=== PATIENT | male | born 1935 | race Caucasian/White ===

== ENCOUNTER 2019-12-31 12:31 | Inpatient (IN) ==
--- NOTE | 2019-12-31 13:40 | XRay Report ---
XR chest 1V portable CLINICAL HISTORY: 84 years-old Male presenting with sob. TECHNIQUE: Portable upright AP view of the chest was obtained. COMPARISON: None. FINDINGS: Left subclavian pacer with leads to the right atrium and right ventricular apex. Median sternotomy wi res and mediastinal surgical clips noted. Atherosclerosis of the aortic arch. Cardiac silhouette mild ly enlarged. Only vascular prominence with coarsened lung markings and interstitial prominence. At a density of the lung bases. Mildly low lung volumes. Trace bilateral pleural effusion suspected. No pn eumothorax. Several external overlying leads. Degenerative changes of the thoracic spine. Gallstones suspected. IMPRESSION: 1. Cardiomegaly with volume overload and congestive change. 2. Bibasilar opacities there is favored to represent developing pulmonary edema versus less likely a spiration or atelectasis. 3. Trace bilateral pleural effusions. ACT 112: Negative or not required by law. Electronically signed by: Mike Anderson M.D. 12/31/2019 1:38 PM
[2019-12-31 13:55] LABS: Basophils # (auto) 0.04 K/uL (0-0.2); Basophils % (auto) 0.6 %; Eosinophils # (auto) 0.33 K/uL (0-0.5); Eosinophils % (auto) 4.8 %; Hematocrit (blood only) 34.6 % (42-52); Hemoglobin 11.3 g/dL (14.0-18.0); Immature Granulocytes # (auto) 0.01 K/uL (0.00-0.02); Immature Granulocytes % (auto) 0.1 %; Lymphocytes # (auto) 1.37 K/uL (1.2-3.4); Lymphocytes % (auto) 20.1 %; Mean Corpuscular Hemoglobin 31.2 pg (25-34); Mean Corpuscular Hgb Conc 32.7 g/dL (32-36); Mean Corpuscular Volume 95.6 fL (80-100); Mean Platelet Volume 9.2 fL (7.4-10.4); Monocytes # (auto) 0.43 K/uL (0.11-0.59); Monocytes % (auto) 6.3 %; Neutrophils # (auto) 4.64 K/uL (1.4-6.5); Neutrophils % (auto) 68.1 %; Platelet Count 253 K/uL (130-400); RDW Coefficient of Variation 14.6 % (11.5-14.5); RDW Standard Deviation 51.1 fL (36.4-46.3); Red Blood Count 3.62 M/uL (4.7-6.1); White Blood Count 6.82 K/uL (4.8-10.8)
[2019-12-31 14:00] LABS: Albumin Level 3.5 gm/dl (3.4-5.0); BUN Creatinine Ratio 17.3 (10-20); Calcium 8.9 mg/dl (8.5-10.1); Creatinine Clr Calc Pharmacy 61.5 ml/min; Est GFR (Non-African American) 77.7; Magnesium 2.1 mg/dl (1.8-2.4); Potassium 3.7 mmol/L (3.5-5.1)
[2019-12-31 14:05] LABS: Bilirubin,Total 0.9 mg/dl (0.2-1); Globulin 3.4 gm/dl (2.5-4.0); Total Protein 6.9 gm/dl (6.4-8.2); Troponin I 0.033 ng/ml (0-0.045)
[2019-12-31 14:24] LABS: Influenza A virus by PCR Neg for Influ A (Neg); Influenza B virus by PCR Neg for Influ B (Neg)
[2019-12-31] MEDS ORDERED: FUROSEMIDE 40 MG/4 ML VIAL IV STA (14:24)
--- NOTE | 2019-12-31 15:43 | History & Physical Report ---
Date of Service December 31, 2019 Assessment & Plan (1) Dyspnea: (2) Chest pain: Pt is 84 y/o M with PMH CAD s/p CABG in 2007, HTN, HLD, bradycardia s/p pacemaker, aortic stenosis, mitral stenosis, DM II, chronic dizziness presented to ER with complaint of shortness of breath, CP with exertion x 1 week and BLE edema, orthopnea and PND x 1 week In ER afebrile, P: 84, R: 20, BP: 124/70, 96% on RA. No leukocytosis, H/H: 11.3/34 (baseline ~12), Troponin: 0.03, BNP: 3977, EKG: v-paced rhythm CXR: Cardiomegaly with volume overload and congestive change. Trace bilateral pleural effusions. Bibasilar opacities there is favored to represent developing pulmonary edema versus less likely aspiration or atelectasis. CHEST PAIN R/O ACS. DDX: demand ischemia Risk factors: HTN, hyperlipidemia, DM, CAD -Monitor Vitals -Repeat EKG in am -Will trend troponin -Echo -Continue statin, lipid panel in am -continue aspirin -Nitro prn CP and repeat EKG for CP -Cardiology consult (3) CHF (congestive heart failure): In ER given lasix 40mg IV Had multiple unmeasured voids in ER -Monitor I&O's, daily weight, low sodium diet -Echo -Lasix IV daily -BMP in am (4) Bradycardia: (5) S/P cardiac pacemaker procedure: -Pacemaker interrogation (6) CAD (coronary artery disease): S/P CABG in 2007 -CP workup as above (7) Diabetes mellitus, type II: A1c: 6.3 on 11/11/2019 -Hold metformin -Novolog sliding scale per protocol (8) HTN (hypertension): Stable, continue amlodipine, losartan (9) HLD (hyperlipidemia): -Continue atorvastatin DVT Prophylaxis -Heparin SQ DNR/DNI as per discussion with pt Follows with Dr Vineet Haney for routine care Pt was seen and care coordinated with Dr Gamino. See addendum History of Present Illness Chief Complaint: SOB Primary Care Provider: Jaelyn Haney MD Pt is 84 y/o M with PMH CAD s/p CABG in 2007, HTN, HLD, bradycardia s/p pacemaker, aortic stenosis, mitral stenosis, DM II, chronic dizziness presented to ER with complaint of shortness of breath. Patient reports shortness of breath with exertion over the past week with worsening symptoms over the past day. Reports associated anterior chest aching with shortness of breath with exertion. Patient states will stop walking and rest and symptoms resolved. Today had to stop walking 6 times at grocery store secondary to symptoms. Also complains of BLE edema x 1 week. Reports occasional cough over the past month. Having orthopnea and PND over the past couple of days. Denies history of diuretic use in past. In ER denies any chest pain. Reports was short of breath walking in ER. Chronic dizziness and denies any worsening. Ambulates with walker or cane. Denies recent falls. Chronic vision loss right eye and chronic blurry vision left eye and denies any recent vision changes. Denies fever/chills, diaphoresis, N/V/D/C, MAYER, syncope, neck pain, palpitations, sore throat, cho nicolas, otalgia, rhinorrhea, abdominal pain, paresthesias, weakness, rashes, urinary symptoms. History echo : EF: 55-59%, mild aortic stenosis, moderate aortic regurgitation, mild mitral regurgitation, mild tricuspid regurgitation, mild pulmonary regurgitation Allergies Allergy/AdvReac Type Severity Reaction Status Date / Time No Known Allergies Allergy Unverified 12/31/19 13:18 Home Medications Home Medications Medication Instructions Recorded Confirmed Type amlodipine 10 mg PO DAILY 12/31/19 12/31/19 History aspirin 81 mg PO DAILY 12/31/19 12/31/19 History atorvastatin 20 mg PO DAILY 12/31/19 12/31/19 History bimatoprost [Lumigan] 1 drp OPB HS 12/31/19 12/31/19 History brimonidine 1 drp OPL TID 12/31/19 12/31/19 History dorzolamide-timolol 1 drp OPL BID 12/31/19 12/31/19 History losartan 25 mg PO DAILY 12/31/19 12/31/19 History metformin 500 mg PO BIDM 12/31/19 12/31/19 History vitamin Q58-oznxg acid 1 felecia SUBLINGUAL DAILY 12/31/19 12/31/19 History Past Med/Surg History Medical History (Updated 12/31/19 @ 17:21 by Mabel Hill PA-C) Aortic stenosis Bradycardia CAD (coronary artery disease) Diabetes Diabetes mellitus, type II Dizziness HLD (hyperlipidemia) HTN (hypertension) Mitral regurgitation Neuropathy Surgical History (Updated 12/31/19 @ 17:21 by Mabel Hill PA-C) 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 S/P cardiac pacemaker procedure Family History (Updated 12/31/19 @ 17:16 by Mabel Hill PA-C) Mother Heart disease Father Prostate cancer Social History (Updated 12/31/19 @ 17:16 by Mabel Hill PA-C) Preferred Language: Nepali Communication Ability: Effective Adult Care Provider Required: No Beliefs That Will Affect Care: None Current Living Situation: Alone Other Information That Helps Us Care for You: No Feels Safe at Home: Yes Safety Concerns: Feels Safe At This Time Smoking Status: Former smoker Tobacco Type: pipe ; Do You Dip or Chew Tobacco: No ; Second Hand Exposure: No ; Hx Alcohol Use: Yes Alcohol type: beer Alcohol Intake Frequency: Rarely Hx Substance Use: No Review of Systems Review of Systems: All systems reviewed & are unremarkable except as noted in HPI & below Physical Exam Physical Exam: General: no acute distress, WDWN Head: normocephalic, atraumatic Eyes: right eye strabismus, PERRL, EOM's intact, conjunctiva non-injected, anicteric ENT: normal inspection external ears, nose, mucous membranes moist Neck: supple, trachea midline Lungs: no respiratory distress, diminished breath sounds bases, no wheezing/rhonchi/rales CV: RRR, systolic murmur, no JVD, 2+ pretibial edema Abd: normal BS, soft, non-tender Ext: no cyanosis, no calf tenderness Neuro: A&O x 3, no focal deficits noted, normal affect Skin: warm, dry Results & Data Vital Signs (Past 12 Hours) Vital Signs Temp Pulse Resp BP Pulse Ox 12/31/19 15:32 95 12/31/19 15:11 95 H 24 154/81 H 93 12/31/19 15:10 95 H 23 93 12/31/19 15:05 91 H 18 94 12/31/19 14:51 86 92 12/31/19 14:49 88 137/77 93 03/04/20 14:40 88 12/31/19 14:30 87 12/31/19 14:20 84 21 12/31/19 14:10 83 23 12/31/19 14:00 84 12/31/19 13:50 82 21 12/31/19 13:40 84 12/31/19 13:33 95 12/31/19 13:30 88 12/31/19 13:20 81 21 12/31/19 13:10 78 23 95 12/31/19 13:00 84 23 96 12/31/19 12:58 86 19 95 12/31/19 12:48 36.5 C 84 20 124/70 96 Laboratory Results Short CBC 12/31/19 Range/Units 13:32 WBC 6.82 (4.8-10.8) K/uL Hgb 11.3 L (14.0-18.0) g/dL Hct 34.6 L (42-52) % Plt Count 253 (130-400) K/uL BMP 12/31/19 13:32 Sodium 138 Potassium 3.7 Chloride 108 H Carbon Dioxide 22 BUN 16 Creatinine 0.91 Glucose 122 H Calcium 8.9 Cardiac Enzymes 12/31/19 Range/Units 13:32 Troponin I 0.033 (0-0.045) ng/ml Liver Function 12/31/19 Range/Units 13:32 Total Bilirubin 0.9 (0.2-1) mg/dl AST 13 L (15-37) U/L ALT 15 (12-78) U/L Alkaline Phosphatase 98 (45-117) U/L Albumin 3.5 (3.4-5.0) gm/dl Diagnostic Findings CXR: 1. Cardiomegaly with volume overload and congestive change. 2. Bibasilar opacities there is favored to represent developing pulmonary edema versus less likely aspiration or atelectasis. 3. Trace bilateral pleural effusions. ECG Rate (beats per minute): 88 Findings: + paced rhythm Code Status & VTE Plan VTE Prophylaxis Plan VTE Prophylaxis will be ordered: Yes Supervising Physician Co-Signing Physician Notes Attending addendum The patient was seen and examined in the emergency room in presence of [id number] He has been complaining of chest pain off and on and shortness of breath for the last few days Also has increasing leg swelling and orthopnea Denies any significant pain during examination On examination No apparent distress at rest Hemodynamically stable with blood pressure at the upper end with systolic 162 Chest-decreased breath sounds both sides at the bases with coarse crackles Heart-S1-S2, regular, 2/6 systolic murmur over precordium Abdomen-benign, soft and nontender Extremity-negative for any edema 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, 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
--- NOTE | 2019-12-31 16:06 | Electrocardiogram Report ---
Test Reason : Blood Pressure : / mmHG Vent. Rate : 088 BPM Atrial Rate : 088 BPM P-R Int : 000 ms QRS Dur : 166 ms QT Int : 438 ms P-R-T Axes : 099 -72 097 degrees QTc Int : 529 ms Ventricular-paced rhythm Abnormal ECG No previous ECGs available Confirmed by Eric Hernandez ([id number]) on 12/31/2019 4:06:23 PM Referred By: Confirmed By:Eric Hernandez
[2019-12-31] MEDS ORDERED: GLUCOSE 40% GEL 15 GM TUBE PO PRN (16:09)
[2019-12-31] MEDS ORDERED: CARBOHYDRATES FOR HYPOGLYCEMIA PO PRN (16:09)
[2019-12-31] MEDS ORDERED: GLUCOSE 10 TABS/TUBE PO PRN (16:09)
[2019-12-31] MEDS ORDERED: ASPIRIN 81 MG CHEW PO STA (16:09)
[2019-12-31] MEDS ORDERED: ACETAMINOPHEN 325 MG TAB PO PRN (16:09)
[2019-12-31] MEDS ORDERED: DEXTROSE 50% 50 ML SYRINGE IV PRN (16:09)
[2019-12-31] MEDS ORDERED: POLYETHYLENE (MIRALAX) 17 GM PACK PO PRN (16:09)
[2019-12-31] MEDS ORDERED: GLUCAGON FOR INJ 1 MG VIAL SQ PRN (16:09)
[2019-12-31] MEDS: INSULIN ASPART 100 UNITS/ML 3 ML PEN SC SCH ×2 (17:19→21:19)
[2019-12-31] MEDS ORDERED: NITROGLYCERIN SL 0.4 MG/TAB TAB SL PRN (17:24)
[2019-12-31] MEDS: DORZOLAMIDE/TIMOLOL 22.3/6.8MG/ML 10 ML BTL OPL SCH (21:00)
[2019-12-31] MEDS: BRIMONIDINE TARTRATE 0.2% 5ML OPL SCH (21:00)
[2019-12-31] MEDS: BIMATOPROST 0.01% OP SOLN 2.5 ML BTL OP SCH (21:01)
[2019-12-31] MEDS: HEPARIN SOD 5,000 UNIT/0.5 ML VIAL SQ SCH (21:01)
[2020-01-01] MEDS ORDERED: PERFLUTREN LIPID MICROSPHERE (DEFINITY) IV ONE (07:11)
[2020-01-01 08:13] LABS: Hematocrit (blood only) 33.8 % (42-52); Mean Corpuscular Hgb Conc 32.5 g/dL (32-36); Mean Corpuscular Volume 95.2 fL (80-100); Mean Platelet Volume 9.5 fL (7.4-10.4); Platelet Count 239 K/uL (130-400); RDW Coefficient of Variation 14.5 % (11.5-14.5); RDW Standard Deviation 49.9 fL (36.4-46.3); Red Blood Count 3.55 M/uL (4.7-6.1); White Blood Count 5.98 K/uL (4.8-10.8)
[2020-01-01 08:28] LABS: BUN Creatinine Ratio 18.8 (10-20); Calcium 8.9 mg/dl (8.5-10.1); Creatinine Clr Calc Pharmacy 62.2 ml/min; Est GFR (African American) 91.2; Est GFR (Non-African American) 78.7; Magnesium 2.1 mg/dl (1.8-2.4); Potassium 3.3 mmol/L (3.5-5.1)
[2020-01-01 08:32] LABS: Troponin I 0.043 ng/ml (0-0.045)
[2020-01-01] MEDS: LOSARTAN POTASSIUM 25 MG TAB PO SCH (08:47)
[2020-01-01] MEDS: ASPIRIN 81 MG ECTAB PO SCH (08:48)
[2020-01-01] MEDS: ATORVASTATIN 20 MG TAB PO SCH (08:48)
[2020-01-01] MEDS: DORZOLAMIDE/TIMOLOL 22.3/6.8MG/ML 10 ML BTL OPL SCH ×2 (08:49→20:40)
[2020-01-01] MEDS: HEPARIN SOD 5,000 UNIT/0.5 ML VIAL SQ SCH ×2 (08:49→20:40)
[2020-01-01] MEDS: BRIMONIDINE TARTRATE 0.2% 5ML OPL SCH ×3 (08:50→20:39)
[2020-01-01] MEDS: INSULIN ASPART 100 UNITS/ML 3 ML PEN SC SCH ×4 (08:51→20:41)
[2020-01-01] MEDS ORDERED: FUROSEMIDE 20 MG in SYRINGE 0 ML IV SCH (09:00)
[2020-01-01] MEDS ORDERED: AMLODIPINE BESYLATE 5 MG TAB PO SCH (09:00)
[2020-01-01] MEDS ORDERED: FUROSEMIDE 40 MG/4 ML VIAL IV SCH (09:00)
[2020-01-01] MEDS ORDERED: POTASSIUM CHLORIDE 20 MEQ TABCR PO ONE (09:30)
--- NOTE | 2020-01-01 13:21 | Cardiology Consultation ---
Date of Consultation January 01, 2020 Assessment & Plan (1) Acute systolic heart failure: Patient remains volume overloaded by exam. We will give additional dose of Lasix this afternoon and continue to follow volume status clinically. Following and replete electrolytes as needed. (2) Cardiomyopathy: Newly discovered with mild global hypokinesis. I had a lengthy discussion with the patient in regards to work-up of the cardiomyopathy and treatment options. Discussed the pros and cons of repeat cardiac catheterization to evaluate for obstructive coronary artery disease versus initiation of medical therapy. The patient states that he would like to avoid any invasive procedures and would prefer to start medical therapy. To that end I will start him on goal-directed medical therapy: Carvedilol 3.125 mg p.o. twice daily Discontinue amlodipine Spironolactone 12.5 mg p.o. daily Continue losartan and increased dose as necessary for BP control Will follow volume status clinically along with possible need for loop diuretic as an outpatient (3) CAD (coronary artery disease): Patient deferring further work-up at this time. (4) Aortic stenosis: Only mild with moderate aortic regurgitation (5) S/P cardiac pacemaker procedure: [employer] device implanted May 2016 Last interrogation performed July 2019 showed an appropriately functioning device with 100% RV pacing burden History of Present Illness Reason for Consultation: Chest pain and shortness of breath. Requesting Physician: Dr. Orta Attending Physician: Singh Orta MD History of Present Illness It was my pleasure to see Mr. Padilla in consultation today January 01, 2020. He is a very pleasant 84-year-old gentleman who only recently moved to the area and was seen by my partner Dr. Rich wants to establish cardiac care. He presents to [facility] on 12/31/2019 with complaints of chest pain and shortness of breath with exertion. The patient states that he noticed the dyspnea developing approximately 1-1/2 weeks ago. He states that it progressed to the point where he is now only able to walk a few steps without having to stop and catch his breath. He states that he then developed chest pain with exertion approximately 1 week ago as well. Again this was progressive to the point where he can only walk a few steps without having to stop. He describes the pain as a substernal pressure sensation that radiates across his precordium. Again is associated with exertional shortness of breath but denies any associated diaphoresis, palpitations, lightheadedness, dizziness or syncope. He denies any previously similar episodes. Upon presentation the emergency department he was found to be volume overloaded and given a dose of IV Lasix. He was admitted to telemetry with daily Lasix. The patient has diuresed well. Currently he is without complaint at rest. He directly verbalizes that he would prefer to avoid any invasive procedure unless absolutely necessary at this time. Past medical history: 1. Coronary artery disease status post remote CABG in 2007 in [place] with unknown grafts 2. Diastolic dysfunction with normal LV systolic function 3. Symptomatic bradycardia status post permanent pacemaker placement 4. Diabetes 5. Hypertension 6. Aortic stenosis Allergies Allergy/AdvReac Type Severity Reaction Status Date / Time No Known Allergies Allergy Unverified 12/31/19 13:18 Home Medications Home Medications Medication Instructions Recorded Confirmed Type amlodipine 10 mg PO DAILY 12/31/19 12/31/19 History aspirin 81 mg PO DAILY 12/31/19 12/31/19 History atorvastatin 20 mg PO DAILY 12/31/19 12/31/19 History bimatoprost [Lumigan] 1 drp OPB HS 12/31/19 12/31/19 History brimonidine 1 drp OPL TID 12/31/19 12/31/19 History dorzolamide-timolol 1 drp OPL BID 12/31/19 12/31/19 History losartan 25 mg PO DAILY 12/31/19 12/31/19 History metformin 500 mg PO BIDM 12/31/19 12/31/19 History vitamin D18-bykua acid 1 felecia SUBLINGUAL DAILY 12/31/19 12/31/19 History Patient History Medical History Aortic stenosis Bradycardia CAD (coronary artery disease) Diabetes Diabetes mellitus, type II Dizziness HLD (hyperlipidemia) HTN (hypertension) Mitral regurgitation Neuropathy Surgical History 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 S/P cardiac pacemaker procedure Family History Mother Heart disease Father Prostate cancer Social History Preferred Language: Bulgarian Communication Ability: Effective 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 No acute distress. HEENT: Normocephalic, atraumatic. Pupils equal, round and reactive to light and accommodation. Extraocular muscles are intact. Anicteric sclera. Moist mucous membranes. Neck: No JVD. No bruit. Cardiovascular: Regular. Positive S-4. Normal S-1 and S-2. No S-3. 3/6 mid to late systolic ejection murmur, greatest at the right sternal border, second intercostal space with radiation to the bilateral carotids. No rubs. Pulmonary: Clear to auscultation bilaterally. No rales, rhonchi, or wheezing. Abdomen: Bowel sounds x 4, soft. No rebound, guarding or tenderness. No organomegaly. Extremities: No clubbing, cyanosis or edema. +2 pedal pulses bilaterally. Skin: Warm and dry. Results & Data ([facility]) Vital Signs (Past 12 Hours) Vital Signs Temp Pulse Pulse Resp BP Pulse Ox 01/01/20 12:04 36.8 C 64 18 124/68 91 01/01/20 10:33 78 01/01/20 07:55 36.3 C L 87 18 136/74 90 01/01/20 04:09 36.5 C 79 18 138/66 95 01/01/20 01:45 76
--- NOTE | 2020-01-01 14:59 | Hospitalist Progress Note ---
Date of Service January 01, 2020 Assessment & Plan (1) Dyspnea: (2) Chest pain: -as per 12/31/2019 admission notes: Pt is 84 y/o M with PMH CAD s/p CABG in 2007, HTN, HLD, bradycardia s/p pacemaker, aortic stenosis, mitral stenosis, DM II, chronic dizziness presented to ER with complaint of shortness of breath, CP with exertion x 1 week and BLE edema, orthopnea and PND x 1 week. In ER afebrile, P: 84, R: 20, BP: 124/70, 96% on RA. No leukocytosis, H/H: 11.3/34 (baseline ~12), Troponin: 0.03, BNP: 3977, EKG: v-paced rhythm" -admission CXR: Cardiomegaly with volume overload and congestive change. Trace bilateral pleural effusions. Bibasilar opacities there is favored to represent developing pulmonary edema versus less likely aspiration or atelectasis. -patient was given IV diuretics since ER presentation (3) CHF (congestive heart failure): acute systolic congestive heart failure Cardiomyopathy -likely the cause for dyspnea and chest discomfort symptoms previously as outpatient -as per cardiology 01/01/2020 evaluation that patient has a Newly discovered with mild global hypokinesis. Patient's preference was for medical optimization rather than diagnostic cardiac catheterization. -cardiology service discontinued amlodipine -cardiology service starting Carvedilol 3.125 mg p.o. twice daily and spironolactone 12.5 mg p.o. daily -continue losartan 25 mg daily -current Lasix as 40 mg IV BID (4) Bradycardia: (5) S/P cardiac pacemaker procedure: -[employer] device implanted May 2016 -Last interrogation performed July 2019 showed an appropriately functioning device with 100% RV pacing burden (6) CAD (coronary artery disease): S/P CABG in 2007 -CP workup as above Aortic stenosis: -Only mild with moderate aortic regurgitation (7) Diabetes mellitus, type II: A1c: 6.3 on 11/11/2019 -Hold metformin -Novolog sliding scale per protocol (8) HTN (hypertension): Stable, continue amlodipine, losartan (9) HLD (hyperlipidemia): -Continue atorvastatin DVT Prophylaxis -Heparin SQ DNR/DNI Admission and Anticipated Discharge Date Admission Date: December 31, 2019 Subjective Patient seen and examined at bedside. on room air. patient denied shortness of breath. denies chest pain today. no abdomen pain. no vomiting. no nausea. no headache. no dizziness. Review of Systems Review of Systems: All systems reviewed & are unremarkable except as noted in HPI & below Physical Exam Constitutional: comfortable Eyes: PERRL, conjunctivae normal, anicteric sclerae EOM intact bilaterally ENMT: external ear and nose normal, oropharynx normal Neck: normal visual inspection Respiratory: normal respiratory effort, lungs clear to auscultation Cardiovascular: Rate/Rhythm: regular rate and regular rhythm Gastrointestinal (Abdomen): normal bowel sounds, soft, nontender, no hepatosplenomegaly Musculoskeletal: Head/Neck/Chest: normocephalic and head atraumatic Neurologic: PERRL, EOMI, accommodation nl, no face palsy, no dysarthria CN's II-XI intact bilaterally Psychiatric: A+Ox3, euthymic affect Results & Data ([facility]) Vital Signs (Past 12 Hours) Vital Signs Temp Pulse Pulse Resp BP Pulse Ox 01/01/20 12:04 36.8 C 64 18 124/68 91 01/01/20 10:33 78 01/01/20 07:55 36.3 C L 87 18 136/74 90 01/01/20 04:09 36.5 C 79 18 138/66 95 (1) Dyspnea Dyspnea type: unspecified Qualified Code(s): R06.00 - Dyspnea, unspecified (2) Chest pain Chest pain type: unspecified Qualified Code(s): R07.9 - Chest pain, unspecified (3) CHF (congestive heart failure) Heart failure type: other Qualified Code(s): I50.9 - Heart failure, unspecified
[2020-01-01] MEDS: SPIRONOLACTONE 12.5 MG TAB PO SCH (15:25)
--- NOTE | 2020-01-01 17:02 | Emergency Department Note ---
Entered by Beatrice Browning acting as a scribe for Jacinda Rahman DO History of Present Illness General Chief complaint: Shortness of Breath/Dyspnea Stated complaint: EPISODES OF SOB THIS MORNING Time Seen by Provider: 12/31/19 12:57 Source: patient History of Present Illness Onset (ago): month(s) 1 Location: left (lung) and right (lung) Radiation: other (chest pain across his chest) Severity: similar to prior episodes Pain Consistency: + intermittent Quality: + other (shortness of breath) Exacerbated By: + movement Associated symptoms: + chest pain, + nausea/vomiting (Positive nausea. Negative vomiting. ) and + shortness of breath The patient is an 84 year old male presenting to the Emergency Department complaining of episodes of shortness of breath starting 1 month ago. The patient reports that he has been experiencing episodes of shortness of breath that normally last 1 to 2 minutes. He states that earlier today these episodes were lasting longer than 2 minutes. He explains that walking around worsens this shortness of breath. He notes that when he becomes short of breath he will sometimes experience chest pain that radiates across his chest. He adds that he sometimes becomes dizzy and nauseated. The patient reports that he follows with Dr. Rich cariologjeancarlos. He denies vomiting, change in bowel movements, or change in urine. No recent change in medications. Patient denies any known sick contacts. No other change in activity. Home Medications Home Medications Medication Instructions Recorded Confirmed Type amlodipine 10 mg PO DAILY 12/31/19 12/31/19 History aspirin 81 mg PO DAILY 12/31/19 12/31/19 History atorvastatin 20 mg PO DAILY 12/31/19 12/31/19 History bimatoprost [Lumigan] 1 drp OPB HS 12/31/19 12/31/19 History brimonidine 1 drp OPL TID 12/31/19 12/31/19 History dorzolamide-timolol 1 drp OPL BID 12/31/19 12/31/19 History losartan 25 mg PO DAILY 12/31/19 12/31/19 History metformin 500 mg PO BIDM 12/31/19 12/31/19 History vitamin D64-hmocf acid 1 felecia SUBLINGUAL DAILY 12/31/19 12/31/19 History Allergies Allergy/AdvReac Type Severity Reaction Status Date / Time No Known Allergies Allergy Unverified 12/31/19 13:18 Past Med/Surg History Medical History Aortic stenosis Bradycardia CAD (coronary artery disease) Diabetes Diabetes mellitus, type II Dizziness HLD (hyperlipidemia) HTN (hypertension) Mitral regurgitation Neuropathy Surgical History 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 S/P cardiac pacemaker procedure Family History Mother Heart disease Father Prostate cancer Social History Preferred Language: Kenyan Communication Ability: Effective Frame And Scrap Crusher Required: No Beliefs That Will Affect Care: None marital status: Unknown Current Living Situation: Alone Other Information That Helps Us Care for You: No Feels Safe at Home: Yes Safety Concerns: Feels Safe At This Time Smoking Status: Former smoker Tobacco Type: pipe ; Do You Dip or Chew Tobacco: No ; Second Hand Exposure: No ; Hx Alcohol Use: Yes Alcohol type: beer Alcohol Intake Frequency: Rarely Hx Substance Use: No Review of Systems See HPI for pertinent positives & negatives. and A total of 10 systems reviewed and were otherwise negative Physical Exam Vital Signs Vital Signs - 24 hr 12/31/19 12:48 12/31/19 13:33 Temperature 97.7 F Temperature Source Oral Pulse Rate 84 Pulse Rhythm Regular Pulse Strength Normal Respiratory Rate 20 Respiratory Effort / Characteristics Non-Labored Spontaneous Respiratory Depth Normal Respiratory Pattern Regular Blood Pressure 124/70 Blood Pressure Mean 88 Blood Pressure Position Sitting Pulse Oximetry 96 95 Oxygen Delivery Method Room Air Room Air Sepsis Recent Fever Within 48 Hours No Sepsis New/Unexplained Change in Mental Status No Sepsis Action Taken by Nursing No Action Required GENERAL: alert, well appearing, well nourished, no distress, non-toxic EYE EXAM: normal conjunctiva, PERRL and EOM's grossly intact OROPHARYNX: no exudate, no erythema, lips, buccal mucosa, and tongue normal and mucous membranes are moist NECK: supple, no nuchal rigidity, no adenopathy, non-tender LUNGS: Clear to auscultation. Normal chest wall mechanics HEART: no murmurs, S1 normal and S2 normal, pacemaker noted left anterior chest wall ABDOMEN: abdomen soft, non-tender, normo-active bowel sounds, no masses, no rebound or guarding. BACK: Back is symmetrical on inspection and there is no deformity, no midline tenderness, no CVA tenderness. SKIN: Well healed mid line sternotomy scar. Well healed scar to ventral left forearm. No rashes and no bruising. UPPER EXTREMITIES: upper extremities are grossly normal. FROM, nml pulses b/l. LOWER EXTREMITIES: 3+ lower extremity edema bilaterally. Nml pulses b/l. NEURO EXAM: Normal sensorium, cranial nerves II-XII grossly intact, normal speech, no gross weakness of arms, no gross weakness of legs. Course Course 1320: The patient was evaluated in room A12B, and a complete history and physical examination were performed. 1425: I reevaluated the patient at this time. 1440: I discussed the patient's case with Rosneda Hill PA-C. Dr. [facility] hospitalist will evaluate the patient for further management. Administered Medications Aspirin (Ecotrin Ectab) 81 mg PO DAILY VELASQUEZ Stop: 01/31/20 08:59 Last Admin: 01/01/20 08:48 Dose: 81 mg Documented by: [id number] Atorvastatin Calcium (Lipitor) 20 mg PO DAILY VELASQUEZ Stop: 01/31/20 08:59 Last Admin: 01/01/20 08:48 Dose: 20 mg Documented by: [id number] Bimatoprost (Lumigan 0.01%) 1 drops OP HS VELASQUEZ Stop: 01/30/20 20:59 Last Admin: 12/31/19 21:01 Dose: 1 drops Documented by: [id number] Brimonidine Tartrate (Alphagan 0.2%) 1 drops OPL TID VELASQUEZ Stop: 01/30/20 20:59 Last Admin: 01/01/20 13:33 Dose: 1 drops Documented by: [id number] Admin: 01/01/20 08:50 Dose: 1 drops Documented by: [id number] Admin: 12/31/19 21:00 Dose: 1 drops Documented by: [id number] Dorzolamide/Timolol (Cosopt) 1 drops OPL BID VELASQUEZ Stop: 01/30/20 20:59 Last Admin: 01/01/20 08:49 Dose: 1 drops Documented by: [id number] Admin: 12/31/19 21:00 Dose: 1 drops Documented by: [id number] Heparin Sodium (Porcine) (Heparin Sodium (Porcine)) 5,000 units SQ Q12 VELASQUEZ Stop: 01/30/20 20:59 Last Admin: 01/01/20 08:49 Dose: 5,000 units Documented by: [id number] Cosigned by: [id number] Admin: 12/31/19 21:01 Dose: 5,000 units Documented by: [id number] Cosigned by: [id number] Insulin Aspart (Novolog Flexpen) 0 units SC ACHS VELASQUEZ Stop: 01/30/20 16:29 Last Admin: 01/01/20 12:18 Dose: 4 units Documented by: [id number] Cosigned by: [id number] Admin: 01/01/20 08:51 Dose: 3 units Documented by: [id number] Cosigned by: [id number] Admin: 12/31/19 21:19 Dose: Not Given Documented by: [id number] Cosigned by: [id number] Admin: 12/31/19 17:19 Dose: 4 units Documented by: [id number] Cosigned by: [id number] Losartan Potassium (Cozaar) 25 mg PO DAILY VELASQUEZ Stop: 01/31/20 08:59 Last Admin: 01/01/20 08:47 Dose: 25 mg Documented by: [id number] Spironolactone (Aldactone) 12.5 mg PO DAILY VELASQUEZ Stop: 01/31/20 14:59 Last Admin: 01/01/20 15:25 Dose: 12.5 mg Documented by: [id number] Discontinued Medications Amlodipine Besylate (Norvasc) 10 mg PO DAILY VELASQUEZ Stop: 01/31/20 08:59 Last Admin: 01/01/20 08:48 Dose: 10 mg Documented by: [id number] Aspirin (Aspirin Chew) 324 mg PO NOW STA Stop: 12/31/19 16:10 Last Admin: 12/31/19 16:39 Dose: 324 mg Documented by: [id number] Furosemide (Lasix) 40 mg IV NOW STA Stop: 12/31/19 14:25 Last Admin: 12/31/19 14:51 Dose: 40 mg Documented by: [id number] Furosemide 20 mg/ Syringe 2 mls @ 4 mls/min IV DAILY VELASQUEZ Stop: 01/31/20 08:59 Last Admin: 01/01/20 08:46 Dose: 4 mls/min Documented by: [id number] Perflutren Lipid Microsphere (Definity) 2 ml IV ONCE ONE Stop: 01/01/20 07:12 Last Admin: 01/01/20 07:17 Dose: 2 ml Documented by: [id number] Potassium Chloride (Klor-Con M20) 40 meq PO ONE ONE Stop: 01/01/20 09:31 Last Admin: 01/01/20 09:34 Dose: 40 meq Documented by: [id number] Medical Decision Making Differential Diagnosis Differential diagnoses includes but is not limited to pneumonia, bronchitis, COPD/Asthma exacerbation, pneumothorax, pulmonary embolism, congestive heart f ailure, acute coronary syndrome, myocardial infarction, pericarditis, aortic dissection, pneumonia, pneumothorax, musculoskeletal, shingles, esophageal. Medical Records Attestation: I reviewed the patient's medical records. Home Medications Current Medication List: was personally reviewed by me Laboratory Data Attestation: I reviewed the patient's lab results. Result diagrams: 01/01/20 07:35 01/01/20 07:35 Lab Results 12/31/19 12/31/19 12/31/19 Range/Units 13:32 13:32 13:49 WBC 6.82 (4.8-10.8) K/uL RBC 3.62 L (4.7-6.1) M/uL Hgb 11.3 L (14.0-18.0) g/dL Hct 34.6 L (42-52) % MCV 95.6 (80-100) fL MCH 31.2 (25-34) pg MCHC 32.7 (32-36) g/dL RDW Std Deviation 51.1 H (36.4-46.3) fL RDW Coeff of [place] 14.6 H (11.5-14.5) % Plt Count 253 (130-400) K/uL MPV 9.2 (7.4-10.4) fL Immature Gran % (Auto) 0.1 % Neut % (Auto) 68.1 % Lymph % (Auto) 20.1 % [place] % (Auto) 6.3 % Eos % (Auto) 4.8 % Baso % (Auto) 0.6 % Immature Gran # (Auto) 0.01 (0.00-0.02) K/uL Neut # (Auto) 4.64 (1.4-6.5) K/uL Lymph # (Auto) 1.37 (1.2-3.4) K/uL [place] # (Auto) 0.43 (0.11-0.59) K/uL Eos # (Auto) 0.33 (0-0.5) K/uL Baso # (Auto) 0.04 (0-0.2) K/uL Sodium 138 (136-145) mmol/L Potassium 3.7 (3.5-5.1) mmol/L Chloride 108 H (98-107) mmol/L Carbon Dioxide 22 (21-32) mmol/L Anion Gap 8.0 (3-11) BUN 16 (7-18) mg/dl Creatinine 0.91 (0.6-1.4) mg/dl Est Cr Clr Drug Dosing 61.5 ml/min Est GFR ( Amer) 90.0 Est GFR (Non-Af Amer) 77.7 BUN/Creatinine Ratio 17.3 (10-20) Glucose 122 H (70-99) mg/dl Calcium 8.9 (8.5-10.1) mg/dl Magnesium 2.1 (1.8-2.4) mg/dl Total Bilirubin 0.9 (0.2-1) mg/dl AST 13 L (15-37) U/L ALT 15 (12-78) U/L Alkaline Phosphatase 98 (45-117) U/L Troponin I 0.033 (0-0.045) ng/ml NT-Pro-B Natriuret Pep 3977 H (0-1800) pg/ml Total Protein 6.9 (6.4-8.2) gm/dl Albumin 3.5 (3.4-5.0) gm/dl Globulin 3.4 (2.5-4.0) gm/dl Albumin/Globulin Ratio 1.0 (0.9-2) Influenza Type A (PCR) Neg for Influ A (Neg) Influenza Type B (PCR) Neg for Influ B (Neg) Imaging Data Radiologist's Impression: Radiology results as stated below per my review and the radiologist's interpretation: XR chest 1V portable CLINICAL HISTORY: 84 years-old Male presenting with sob. TECHNIQUE: Portable upright AP view of the chest was obtained. COMPARISON: None. FINDINGS: Left subclavian pacer with leads to the right atrium and right ventricular apex. Median sternotomy wires and mediastinal surgical clips noted. Atherosclerosis of the aortic arch. Cardiac silhouette mildly enlarged. Only vascular prominence with coarsened lung markings and interstitial prominence. At a density of the lung bases. Mildly low lung volumes. Trace bilateral pleural effusion suspected. No pneumothorax. Several external overlying leads. Degenerative changes of the thoracic spine. Gallstones suspected. IMPRESSION: 1. Cardiomegaly with volume overload and congestive change. 2. Bibasilar opacities there is favored to represent developing pulmonary edema versus less likely aspiration or atelectasis. 3. Trace bilateral pleural effusions. ACT 112: Negative or not required by law. Electronically signed by: Mike Anderson M.D. 12/31/2019 1:38 PM ECG Data Attestation: I personally reviewed and interpreted this ECG as follows: Indication: + chest pain and + SOB/dyspnea Rate (beats per minute): 88 Rhythm: + other (paced rhythm) ECG [place]: + Left axis deviation ECG Findings: + Other (No acute ischemia. Prolonged intervals consistent with pacing.) Blood Pressure Blood Pressure Findings: Elevated blood pressure Blood Pressure Disposition: further management by hospitalist [facility] Narrative Cardiac Monitoring: An order was placed for continuous cardiac monitoring. The monitor shows a rate of 84 with paced rhythm. Patient here well-appearing and no symptoms while at rest. Due to concerning story for evolving and worsening exertional angina, labs are drawn and sent and chest x-ray performed. These were all reassuring and patient with elevated BNP. Patient did have a recent echo as obtained by case management from the [facility] EMR which had a reassuring LVEF. Patient does not currently take any diuretics. Discussed with patient concern for evolving congestive heart failure in light of known CAD and cardiac history. Patient given a dose of Lasix down here. Patient in agreement with plan for additional inpatient management and evaluation. I do not suspect dissection, PE, occult pneumonia. Impression & Plan Dyspnea, CHF (congestive heart failure), Chest pain Discharge Plan Visit Data *Final* Discharge Date/Time: 12/31/19 15:34 Chief Complaint: Shortness of Breath/Dyspnea Stated Complaint: EPISODES OF SOB THIS MORNING ED Provider: Jacinda Rahman Discharge Problem: Dyspnea, CHF (congestive heart failure), Chest pain Patient Disposition: Admitted As Inpatient Discharge Instructions Interventions: ED Discharge Assessment Last Done: 12/31/19 15:34 Discharge Problem: Dyspnea Qualifiers: Dyspnea type: unspecified Qualified Code(s): R06.00 - Dyspnea, unspecified CHF (congestive heart failure) Qualifiers: Heart failure type: other Qualified Code(s): I50.9 - Heart failure, unspecified Chest pain Qualifiers: Chest pain type: unspecified Qualified Code(s): R07.9 - Chest pain, unspecified The scribe's documentation has been prepared under my direction and personally reviewed by me in its entirety. I confirm that the note above accurately reflects all work, treatment, procedures, and medical decision making performed by me.
[2020-01-01] MEDS: POTASSIUM CHLORIDE 20 MEQ TABCR PO SCH (17:04)
[2020-01-01] MEDS: FUROSEMIDE 40 MG in SYRINGE 0 ML IV SCH (17:05)
[2020-01-01] MEDS: BIMATOPROST 0.01% OP SOLN 2.5 ML BTL OP SCH (20:39)
[2020-01-01] MEDS: carvediloL 3.125 MG TAB PO SCH (20:40)
[2020-01-02] MEDS: carvediloL 3.125 MG TAB PO SCH (08:10)
[2020-01-02] MEDS: ATORVASTATIN 20 MG TAB PO SCH (08:10)
[2020-01-02] MEDS: SPIRONOLACTONE 12.5 MG TAB PO SCH (08:10)
[2020-01-02] MEDS: ASPIRIN 81 MG ECTAB PO SCH (08:10)
[2020-01-02] MEDS: FUROSEMIDE 40 MG in SYRINGE 0 ML IV SCH (08:11)
[2020-01-02] MEDS: HEPARIN SOD 5,000 UNIT/0.5 ML VIAL SQ SCH (08:11)
[2020-01-02] MEDS: POTASSIUM CHLORIDE 20 MEQ TABCR PO SCH (08:11)
[2020-01-02] MEDS: LOSARTAN POTASSIUM 25 MG TAB PO SCH (08:11)
[2020-01-02] MEDS: DORZOLAMIDE/TIMOLOL 22.3/6.8MG/ML 10 ML BTL OPL SCH (08:12)
[2020-01-02] MEDS: BRIMONIDINE TARTRATE 0.2% 5ML OPL SCH (08:12)
[2020-01-02] MEDS: INSULIN ASPART 100 UNITS/ML 3 ML PEN SC SCH ×2 (08:13→11:59)
[2020-01-02 08:38] LABS: Albumin Level 3.3 gm/dl (3.4-5.0); BUN Creatinine Ratio 18.1 (10-20); Calcium 8.5 mg/dl (8.5-10.1); Creatinine Clr Calc Pharmacy 52.8 ml/min; Est GFR (African American) 74.9; Est GFR (Non-African American) 64.6; Potassium 3.4 mmol/L (3.5-5.1)
[2020-01-02 08:41] LABS: Bilirubin,Total 0.6 mg/dl (0.2-1); Globulin 3.4 gm/dl (2.5-4.0); Total Protein 6.7 gm/dl (6.4-8.2)
[2020-01-02] MEDS ORDERED: POTASSIUM CHLORIDE 20 MEQ TABCR PO STA (09:37)
--- NOTE | 2020-01-02 11:38 | Hospitalist Progress Note ---
Date of Service January 02, 2020 Assessment & Plan (1) Dyspnea: (2) Chest pain: -as per 12/31/2019 admission notes: Pt is 84 y/o M with PMH CAD s/p CABG in 2007, HTN, HLD, bradycardia s/p pacemaker, aortic stenosis, mitral stenosis, DM II, chronic dizziness presented to ER with complaint of shortness of breath, CP with exertion x 1 week and BLE edema, orthopnea and PND x 1 week. In ER afebrile, P: 84, R: 20, BP: 124/70, 96% on RA. No leukocytosis, H/H: 11.3/34 (baseline ~12), Troponin: 0.03, BNP: 3977, EKG: v-paced rhythm" -admission CXR: Cardiomegaly with volume overload and congestive change. Trace bilateral pleural effusions. Bibasilar opacities there is favored to represent developing pulmonary edema versus less likely aspiration or atelectasis. -patient was given IV diuretics since ER presentation (3) CHF (congestive heart failure): acute systolic congestive heart failure Cardiomyopathy -likely the cause for dyspnea and chest discomfort symptoms previously as outpatient -as per cardiology 01/01/2020 evaluation that patient has a Newly discovered with mild global hypokinesis. Patient's preference was for medical optimization rather than diagnostic cardiac catheterization. -01/01/2020: cardiology service discontinued amlodipine; cardiology service starting Carvedilol 3.125 mg p.o. twice daily and spironolactone 12.5 mg p.o. daily; continue losartan 25 mg daily; current Lasix as 40 mg IV BID 01/02/2020 discharge to home discharge instructions (cardiology service discontinued amlodipine cardiology service starting Carvedilol 3.125 mg p.o. twice daily and spironolactone 12.5 mg p.o. daily continue losartan 25 mg daily furosemide as 40 mg oral daily. also potassium 20 meq daily for 10 days. Patient should have repeat electrolytes checked and renal function checked by primary care and cardiology clinic continue aspirin as 81 mg daily increase atorvastatin from 20 mg to 40 mg on discharge nitro can be placed under the tongue or between the cheek and gum at the first can be taken every 5 minutes as needed for chest pain for up to 15 minutes.Do not take more than 3 tablets in 15 minutes. Go to emergency room immediately if pain continues discharge medications sent electronically to [facility] [address] [place] [address] upcoming appointments 01/06/2020 10:00 AM Provider Sabas Paz MD Department Internal Medicine [facility] 01/22/2020 3:00 PM Provider Marcos Stiles Jr., DO Department Cardiology, [facility] 03/02/2020 1:30 PM Provider Shorty Rich DO Department Cardiology [facility] 03/23/2020 2:20 PM Provider Jaelyn Haney MD Department Internal Medicine [facility]) (4) Bradycardia: -heart rate currently in the 70s (5) S/P cardiac pacemaker procedure: -[place] device implanted May 2016 -Last interrogation performed July 2019 showed an appropriately functioning device with 100% RV pacing burden (6) CAD (coronary artery disease): S/P CABG in 2007 -management of chest pain as above Aortic stenosis: -Only mild with moderate aortic regurgitation (7) Diabetes mellitus, type II: A1c: 6.3 on 11/11/2019 -resume home dose metformin on discharge (8) HTN (hypertension): Stable, continue amlodipine, losartan diuretics (9) HLD (hyperlipidemia): -Continue atorvastatin DVT Prophylaxis -Heparin SQ DNR/DNI Admission and Anticipated Discharge Date Admission Date: December 31, 2019 Subjective No chest pain. breathing on room air. no shortness of breath. no headache, no dizziness. patient is eager for hospital discharge. discharge plans discussed Review of Systems Review of Systems: All systems reviewed & are unremarkable except as noted in HPI & below Physical Exam Constitutional: comfortable Eyes: PERRL, conjunctivae normal, anicteric sclerae EOM intact bilaterally ENMT: external ear and nose normal, oropharynx normal Neck: normal visual inspection Respiratory: normal respiratory effort, lungs clear to auscultation Cardiovascular: Rate/Rhythm: regular rate and regular rhythm Gastrointestinal (Abdomen): normal bowel sounds, soft, nontender, no hepatosplenomegaly Musculoskeletal: Head/Neck/Chest: normocephalic and head atraumatic Neurologic: PERRL, EOMI, accommodation nl, no face palsy, no dysarthria CN's II-XI intact bilaterally Psychiatric: A+Ox3, euthymic affect Results & Data ([facility]) Vital Signs (Past 12 Hours) Vital Signs Temp Pulse Pulse Resp BP Pulse Ox 01/02/20 11:24 36.5 C 65 20 111/60 95 01/02/20 07:39 36.6 C 75 20 133/67 94 01/02/20 07:25 76 01/02/20 04:01 36.6 C 73 16 123/58 L 91 01/02/20 00:14 75 (1) CHF (congestive heart failure) Heart failure type: other Qualified Code(s): I50.9 - Heart failure, unspecified (2) Dyspnea Dyspnea type: unspecified Qualified Code(s): R06.00 - Dyspnea, unspecified (3) Chest pain Chest pain type: unspecified Qualified Code(s): R07.9 - Chest pain, unspecified
[2020-01-02] MEDS ORDERED: ATORVASTATIN 20 MG TAB PO STA (11:39)
--- NOTE | 2020-01-02 11:42 | Discharge Summary ---
Date of Service January 02, 2020 Admission HPI Per Admitting Provider Pt is 84 y/o M with PMH CAD s/p CABG in 2007, HTN, HLD, bradycardia s/p pacemaker, aortic stenosis, mitral stenosis, DM II, chronic dizziness presented to ER with complaint of shortness of breath. Patient reports shortness of breath with exertion over the past week with worsening symptoms over the past day. Reports associated anterior chest aching with shortness of breath with exertion. Patient states will stop walking and rest and symptoms resolved. Today had to stop walking 6 times at grocery store secondary to symptoms. Also complains of BLE edema x 1 week. Reports occasional cough over the past month. Having orthopnea and PND over the past couple of days. Denies history of diuretic use in past. In ER denies any chest pain. Reports was short of breath walking in ER. Chronic dizziness and denies any worsening. Ambulates with walker or cane. Denies recent falls. Chronic vision loss right eye and chronic blurry vision left eye and denies any recent vision changes. Denies fever/chills, diaphoresis, N/V/D/C, MAYER, syncope, neck pain, palpitations, sore throat, choking, otalgia, rhinorrhea, abdominal pain, paresthesias, weakness, rashes, urinary symptoms. History echo : EF: 55-59%, mild aortic stenosis, moderate aortic regurgitation, mild mitral regurgitation, mild tricuspid regurgitation, mild pulmonary regurgitation Admission Exam Per Admitting Provider General: no acute distress, WDWN Head: normocephalic, atraumatic Eyes: right eye strabismus, PERRL, EOM's intact, conjunctiva non-injected, anicteric ENT: normal inspection external ears, nose, mucous membranes moist Neck: supple, trachea midline Lungs: no respiratory distress, diminished breath sounds bases, no wheezing/rhonchi/rales CV: RRR, systolic murmur, no JVD, 2+ pretibial edema Abd: normal BS, soft, non-tender Ext: no cyanosis, no calf tenderness Neuro: A&O x 3, no focal deficits noted, normal affect Skin: warm, dry Principal Diagnosis Chest pain with Dyspnea acute systolic congestive heart failure Cardiomyopathy Hypertension Type 2 diabetes mellitus without intermediate designer current use of insulin Discharge Exam Constitutional comfortable Eyes PERRL, conjunctivae normal, anicteric sclerae EOM intact bilaterally ENMT external ear and nose normal, oropharynx normal Neck normal visual inspection Respiratory normal respiratory effort, lungs clear to auscultation Cardiovascular Rate/Rhythm: regular rate and regular rhythm Gastrointestinal (Abdomen) normal bowel sounds, soft, nontender, no hepatosplenomegaly Musculoskeletal Head/Neck/Chest: normocephalic and head atraumatic Neurologic PERRL, EOMI, accommodation nl, no face palsy, no dysarthria CN's II-XI intact bilaterally Psychiatric A+Ox3, euthymic affect Discharge Data Allergies Allergy/AdvReac Type Severity Reaction Status Date / Time No Known Allergies Allergy Unverified 12/31/19 13:18 Consultations 12/31/19 14:38 ED Decision to Admit Stat 12/31/19 16:09 Consult Cardiology Routine Consult Case Management - Discharge Planning Routine Hospital Course (1) Dyspnea: (2) Chest pain: -as per 12/31/2019 admission notes: Pt is 84 y/o M with PMH CAD s/p CABG in 2007, HTN, HLD, bradycardia s/p pacemaker, aortic stenosis, mitral stenosis, DM II, chronic dizziness presented to ER with complaint of shortness of breath, CP with exertion x 1 week and BLE edema, orthopnea and PND x 1 week. In ER afebrile, P: 84, R: 20, BP: 124/70, 96% on RA. No leukocytosis, H/H: 11.3/34 (baseline ~12), Troponin: 0.03, BNP: 3977, EKG: v-paced rhythm" -admission CXR: Cardiomegaly with volume overload and congestive change. Trace bilateral pleural effusions. Bibasilar opacities there is favored to represent developing pulmonary edema versus less likely aspiration or atelectasis. -patient was given IV diuretics since ER presentation (3) CHF (congestive heart failure): acute systolic congestive heart failure Cardiomyopathy -likely the cause for dyspnea and chest discomfort symptoms previously as outpatient -as per cardiology 01/01/2020 evaluation that patient has a Newly discovered with mild global hypokinesis. Patient's preference was for medical optimization rather than diagnostic cardiac catheterization. -01/01/2020: cardiology service discontinued amlodipine; cardiology service starting Carvedilol 3.125 mg p.o. twice daily and spironolactone 12.5 mg p.o. daily; continue losartan 25 mg daily; current Lasix as 40 mg IV BID 01/02/2020 discharge to home discharge instructions (cardiology service discontinued amlodipine cardiology service starting Carvedilol 3.125 mg p.o. twice daily and spironolactone 12.5 mg p.o. daily continue losartan 25 mg daily furosemide as 40 mg oral daily. also potassium 20 meq daily for 10 days. Patient should have repeat electrolytes checked and renal function checked by primary care and cardiology clinic continue aspirin as 81 mg daily increase atorvastatin from 20 mg to 40 mg on discharge nitro can be placed under the tongue or between the cheek and gum at the first can be taken every 5 minutes as needed for chest pain for up to 15 minutes.Do not take more than 3 tablets in 15 minutes. Go to emergency room immediately if pain continues discharge medications sent electronically to [facility] [address] [place] [address] upcoming appointments 01/06/2020 10:00 AM Provider Sabas Paz MD Department Internal Medicine [facility] 01/22/2020 3:00 PM Provider Marcos Stiles Jr., DO Department Cardiology, [facility] 03/02/2020 1:30 PM Provider Shorty Rich, DO Department Cardiology [facility] 03/23/2020 2:20 PM Provider Jaelyn Haney MD Department Internal Medicine [facility]) (4) Bradycardia: -heart rate currently in the 70s (5) S/P cardiac pacemaker procedure: -[employer] device implanted May 2016 -Last interrogation performed July 2019 showed an appropriately functioning device with 100% RV pacing burden (6) CAD (coronary artery disease): S/P CABG in 2007 -management of chest pain as above Aortic stenosis: -Only mild with moderate aortic regurgitation (7) Diabetes mellitus, type II: Type 2 diabetes mellitus without intermediate designer current use of insulin -A1c: 6.3 on 11/11/2019 -resume home dose metformin on discharge (8) HTN (hypertension): Stable, continue amlodipine, losartan diuretics (9) HLD (hyperlipidemia): -Continue atorvastatin DVT Prophylaxis -Heparin SQ DNR/DNI Total Time Total Time Spent Total Time Spent (In Minutes): 40 minutes Total Time Includes: Examination of the Patient, Discharge Planning, Medication Reconciliation and Communication With Other Providers Discharge Plan Discharge Items Patient Disposition: Home - Self-Care Reason For Visit: FLUID OVERLOAD Discharge Diagnosis: Chest pain with Dyspnea acute systolic congestive heart failure Cardiomyopathy Hypertension Type 2 diabetes mellitus without intermediate designer current use of insulin Condition on Discharge: Good Activity: Resume your previous activity Non-emergency contact: Primary Care Provider and Collections Specialist Call non-emergency contact if: you have any medication questions Follow-up/Referrals: Jaelyn Pemberton MD [Primary Care Provider] - Diet: Carb Consistent or DM2 and Heart Healthy Addtl Attending Provider Instructions: cardiology service discontinued amlodipine cardiology service starting Carvedilol 3.125 mg p.o. twice daily and spironolactone 12.5 mg p.o. daily continue losartan 25 mg daily furosemide as 40 mg oral daily. also potassium 20 meq daily for 10 days. Patient should have repeat electrolytes checked and renal function checked by primary care and cardiology clinic continue aspirin as 81 mg daily increase atorvastatin from 20 mg to 40 mg on discharge nitro can be placed under the tongue or between the cheek and gum at the first can be taken every 5 minutes as needed for chest pain for up to 15 minutes.Do not take more than 3 tablets in 15 minutes. 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 * Use the same scale. * Wear the same amount of clothing. * Write your weight down on a chart. * Call your Primary Care doctor if you gain more than 2-3 pounds in 1-2 days. MEDICATIONS * Use this discharge instruction sheet for medication instructions. * Take your medications at the time your doctor ordered. * Do not skip a dose of your medicines. * If you miss a dose of medicine, take it as soon as possible, but DO NOT DOUBLE A DOSE. * Read your medicine information when you get home. * Know all of the side effects of your medicine. If in doubt, ask your pharmacist * Call your Primary Care doctor's office if you have any side effects. * Be sure all of your doctors know what medicine and herbs you take (including cold, flu, and herbal medicine). Take the following with you to your follow-up doctor appointments: * Weight Chart * Medication List * List of questions Do not drink excessive alcohol, beer or wine. Pending Studies at Discharge: No Stand-Alone Forms: [facility], Smoking Cessation Medications and DC Order Prescriptions: New carvedilol 3.125 mg Tablet 3.125 mg PO BID 30 Days Qty: 60 RF: 0 spironolactone 25 mg Tablet 12.5 mg PO DAILY 30 Days Qty: 15 RF: 0 nitroglycerin [Nitrostat] 0.4 mg Tablet, Sublingual 0.4 mg sublingual UD PRN (Reason: chest pain) 30 Days Qty: 30 RF: 0 furosemide 40 mg Tablet 40 mg PO QAM 30 Days Qty: 30 RF: 0 potassium chloride [Klor-Con M20] 20 mEq Tablet,Er Particles/Crystals 20 meq PO DAILY 10 Days Qty: 10 RF: 0 atorvastatin 20 mg Tablet 40 mg PO DAILY 30 Days Qty: 60 RF: 0 aspirin 81 mg Tablet,Delayed Release (Dr/Ec) 81 mg PO DAILY 30 Days Qty: 30 RF: 0 Continued metformin 500 mg Tablet 500 mg PO BIDM RF: 0 atorvastatin 20 mg Tablet 20 mg PO DAILY RF: 0 aspirin 81 mg Tablet,Delayed Release (Dr/Ec) 81 mg PO DAILY RF: 0 losartan 25 mg Tablet 25 mg PO DAILY RF: 0 dorzolamide-timolol 22.3-6.8 mg/mL Drops 1 drp OPL BID RF: 0 Lumigan 0.01 % Drops 1 drp OPB HS RF: 0 vitamin B54-kawco acid 1,000-400 mcg Lozenge 1 felecia SUBLINGUAL DAILY RF: 0 brimonidine 0.2 % drops 1 drp OPL TID RF: 0 Discontinued amlodipine 10 mg Tablet 10 mg PO DAILY RF: 0 Discharge Orders: Discharge Order (Routine); Ordered 01/02/20 Ordered By: Singh Orta Admission Data Admit Date/Time: 12/31/19 15:02 Attending Provider: Singh Orta Admit Provider: Nathan Gamino Primary Care Provider: Jaelyn Pemberton Other Providers: Nathan Gamino ; Marcos Stiles
[2020-01-03] MEDS ORDERED: FUROSEMIDE 40 MG TAB PO SCH (09:00)
== END 2020-01-02 12:45 | disposition home or self-care (01) | DRG 314 ==
LOC: ED 12:31 → SUATTDRO 15:02 → 2W 15:02

== ENCOUNTER 2021-03-03 10:13 | Inpatient (IN) ==
[2021-03-03 10:37] LABS: Basophils # (auto) 0.02 K/uL (0-0.2); Basophils % (auto) 0.2 %; Eosinophils # (auto) 0.33 K/uL (0-0.5); Eosinophils % (auto) 3.8 %; Hematocrit (blood only) 34.4 % (42-52); Hemoglobin 11.4 g/dL (14.0-18.0); Immature Granulocytes # (auto) 0.02 K/uL (0.00-0.02); Immature Granulocytes % (auto) 0.2 %; Lymphocytes # (auto) 1.24 K/uL (1.2-3.4); Lymphocytes % (auto) 14.1 %; Mean Corpuscular Hemoglobin 30.7 pg (25-34); Mean Corpuscular Hgb Conc 33.1 g/dL (32-36); Mean Corpuscular Volume 92.7 fL (80-100); Mean Platelet Volume 9.8 fL (7.4-10.4); Monocytes # (auto) 0.66 K/uL (0.11-0.59); Monocytes % (auto) 7.5 %; Neutrophils # (auto) 6.52 K/uL (1.4-6.5); Neutrophils % (auto) 74.2 %; Platelet Count 248 K/uL (130-400); RDW Coefficient of Variation 14.7 % (11.5-14.5); RDW Standard Deviation 49.7 fL (36.4-46.3); Red Blood Count 3.71 M/uL (4.7-6.1); White Blood Count 8.79 K/uL (4.8-10.8)
--- NOTE | 2021-03-03 10:55 | Emergency Department Note ---
Impression & Plan Substernal chest pain, Cardiomyopathy, Hx of exertional chest pain ED Provider Note NAME: RAMONA ZAPATA AGE: 86 SEX: M ARRIVES VIA: Ambulance INFORMANT: Patient, ED PROVIDER(S): Piyush De Jesus MD CHIEF COMPLAINT: Chest pain PLAN: Disposition: Admit MEDICAL DECISION MAKING: The patient is a pleasant 86-year-old gentleman with a past medical history of CAD s/p CABG in 2007, HTN, HLD, bradycardia s/p pacemaker, aortic stenosis, mitral stenosis, DM II, chronic dizziness who presents to the emergency department for evaluation of chest pain that happened this morning when he attempted to get out of bed. He reports that he experiences this type of pain daily for the past year or so usually lasts a couple seconds but today lasted a couple minutes and he reports associated lightheadedness, nausea. He is somewhat of a poor historian as he he reports he contacted his brother who contacted the hospital and was referred to the emergency department. However he was apparently seen at [facility] today and EMS was called there and he had received 324 of aspirin. Additionally, the patient reports he has had regular similar pain with exertion that resolves with rest. He denies to me ever mentioning this to his doctors but review of the patient's admission in December 2019 shows he was admitted for this. This was thought to be related to new diagnosis of cardiomyopathy and preference was for medical optimization at that time as was the patient's preference to avoid any invasive procedures. Today the patient denies any fevers, chills, cough, congestion, GI or symptoms. He denies any symptoms at this time. On arrival the patient denies any symptoms and is relatively well-appearing in no acute distress, afebrile with stable vital signs. WBC and platelets within normal limits. H/H similar to prior. Chemistry witho ut metabolic acidosis. LFTs without significant abnormality. Lipase within normal limits. Troponin 0.018, within normal limits. BNP 9K which is increased from a year ago in the setting of his newly diagnosed cardiomyopathy at that time however he does not appear particularly overloaded at this moment and has normal oxygen saturation and respiratory effort. Chest x-ray does show interstitial thickening and trace bilateral pleural effusions though no overt pulmonary edema. EKG is ventricular paced. Given the patient's cardiomyopathy in the setting of his report of ongoing exertional chest pain he agrees with plan for admission for further evaluation. Case was discussed with Emmie Brian, with Dr. Lex [facility] who will evaluate the patient for admission. Triage Nursing notes reviewed and agree them. Additional history obtained from EMS Prior medical records reviewed Vital Signs: reviewed and remarkable for no significant abnormalities Differential diagnosis: Cardiac ischemia, aortic dissection, pulmonary embolism, pneumothorax, pneumonia, pericarditis, myocarditis, esophageal rupture, GERD, cholecystitis, pancreatitis, musculoskeletal, as well as other pathologies. ER treatment provided: See below. Diagnostics interpreted by me: ECG: Ventricular paced rhythm, occasional PVCs, 63 bpm, no overt acute ischemia. Cardiac Monitoring: An order for continuous cardiac monitoring was placed and demonstrated ventricular paced rhythm, 63 bpm, occasional PVCs. Laboratory studies: See below Imaging studies: See below Consultation(s): Case was discussed with Emmie Brian, with Dr. Lex hoover who will evaluate the patient for admission. HPI: The patient is a pleasant 86-year-old gentleman with a past medical history of CAD s/p CABG in 2007, HTN, HLD, bradycardia s/p pacemaker, aortic stenosis, mitral stenosis, DM II, chronic dizziness who presents to the emergency department for evaluation of chest pain that happened this morning when he attempted to get out of bed. He reports that he experiences this type of pain daily for the past year or so usually lasts a couple seconds but today lasted a couple minutes and he reports associated lightheadedness, nausea. He is somewhat of a poor historian as he he reports he contacted his brother who contacted the hospital and was referred to the emergency department. However he was apparently seen at [facility] today and EMS was called there and he had received 324 of aspirin. Additionally, the patient reports he has had regular similar pain with exertion that resolves with rest. He denies to me ever mentioning this to his doctors but review of the patient's admission in December 2019 shows he was admitted for this. This was thought to be related to new diagnosis of cardiomyopathy and preference was for medical optimization at that time as was the patient's preference to avoid any invasive procedures. Today the patient denies any fevers, chills, cough, congestion, GI or symptoms. He denies any symptoms at this time. ROS: See above HPI for pertinent positives & negatives. A total of 10 systems reviewed and were otherwise negative. PAST MEDICAL HISTORY:See Below PAST SURGICAL HISTORY:See Below FAMILY HISTORY:See Below SOCIAL HISTORY:See Below HOME MEDICATIONS:See Below ALLERGIES:See Below VITALS:See Below PHYSICAL EXAMINATION: GENERAL: Awake, alert, well-appearing, in no distress HENT: Normocephalic, atraumatic. Oropharynx unremarkable. EYES: Normal conjunctiva. Sclera non-icteric. NECK: Supple. No nuchal rigidity. FROM. No JVD. RESPIRATORY: Diminished at bases. CARDIAC: Regular rate, normal rhythm. Extremities warm and well perfused. Pulses equal. ABDOMEN: Soft, non-distended. No tenderness to palpation. No rebound or guarding. No masses. RECTAL: Deferred. MUSCULOSKELETAL: Chest examination reveals no tenderness. The back is symmetrical on inspection without obvious abnormality. There is no CVA tenderness to palpation. No joint edema. LOWER EXTREMITIES: Calves are equal size bilaterally and non-tender. No edema. No discoloration. NEURO: Normal sensorium. No sensory or motor deficits noted. SKIN: No rash or jaundice noted. Piyush De Jesus MD Past Med/Surg History Medical History (Updated 03/03/21 @ 14:24 by Shorty Rich DO) Aortic stenosis Bradycardia CAD (coronary artery disease) Diabetes Diabetes mellitus, type II Dizziness HLD (hyperlipidemia) HTN (hypertension) Mitral regurgitation Neuropathy Surgical History 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 S/P cardiac pacemaker procedure Family History Mother Heart disease Father Prostate cancer Social History Smoking Status: Unknown if ever smoked Second Hand Exposure: No; Hx Alcohol Use: No Hx Substance Use: No Preferred Language: Yakut 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 Beliefs That Will Affect Care: None marital status: Unknown Current Living Situation: Personal Care Facility How many Children do You have: 2 Feels Safe at Home: Yes Assistive Devices: Walker Allergies Allergies Allergy/AdvReac Type Severity Reaction Status Date / Time No Known Allergies Allergy Unverified 02/04/21 13:49 Home Meds Home Medications Medication Instructions Recorded Confirmed Rosibel figueroa OPB HS 12/31/19 03/03/21 aspirin 81 mg PO QAM 12/31/19 03/03/21 atorvastatin 40 mg PO QAM 12/31/19 03/03/21 brimonidine 1 drp OPL TID 12/31/19 03/03/21 dorzolamide-timolol 1 drp OPL BID 12/31/19 03/03/21 losartan 12.5 mg PO QAM 12/31/19 03/03/21 metformin 500 mg PO BIDM 12/31/19 03/03/21 carvedilol 3.125 mg PO BID 02/04/21 03/03/21 cyanocobalamin (vitamin B-12) 1,000 mcg PO QAM 02/04/21 03/03/21 furosemide 20 mg PO QAM 02/04/21 03/03/21 aspirin 324 mg PO ONCE 03/03/21 03/03/21 Results & Data (ED) Vital Signs Vital Signs - 24 hr 03/03/21 10:18 03/03/21 10:22 03/03/21 10:27 Temperature 37.4 C Temperature Source Oral Pulse Rate 60 60 60 Pulse Rate [Apical] Pulse Rate [Left Brachial] Pulse Rate from SpO2 Sensor 59 L 60 Pulse Rhythm [Left Brachial] Pulse Strength [Left Brachial] Respiratory Rate 15 18 20 Respiratory Effort / Characteristics Respiratory Depth Blood Pressure 182/68 H 162/68 H Blood Pressure [Left Arm] Blood Pressure Mean 106 99 Blood Pressure Mean [Left Arm] Blood Pressure Position [Left Arm] Pulse Oximetry 92 96 92 Oxygen Delivery Method Room Air Sepsis Recent Fever Within 48 Hours No Sepsis New/Unexplained Change in Mental Status No Sepsis Action Taken by Nursing No Action Required 03/03/21 10:30 03/03/21 10:31 03/03/21 10:40 Temperature Temperature Source Pulse Rate 60 60 60 Pulse Rate [Apical] Pulse Rate [Left Brachial] Pulse Rate from SpO2 Sensor 60 59 L 60 Pulse Rhythm [Left Brachial] Pulse Strength [Left Brachial] Respiratory Rate 14 14 23 Respiratory Effort / Characteristics Respiratory Depth Blood Pressure 154/60 H Blood Pressure [Left Arm] Blood Pressure Mean 91 Blood Pressure Mean [Left Arm] Blood Pressure Position [Left Arm] Pulse Oximetry 95 95 94 Oxygen Delivery Method Room Air Sepsis Recent Fever Within 48 Hours Sepsis New/Unexplained Change in Mental Status Sepsis Action Taken by Nursing 03/03/21 10:50 03/03/21 11:00 03/03/21 11:01 Temperature Temperature Source Pulse Rate 60 60 65 Pulse Rate [Apical] Pulse Rate [Left Brachial] Pulse Rate from SpO2 Sensor 60 60 65 Pulse Rhythm [Left Brachial] Pulse Strength [Left Brachial] Respiratory Rate 17 22 21 Respiratory Effort / Characteristics Respiratory Depth Blood Pressure 162/61 H Blood Pressure [Left Arm] Blood Pressure Mean 94 Blood Pressure Mean [Left Arm] Blood Pressure Position [Left Arm] Pulse Oximetry 95 96 94 Oxygen Delivery Method Sepsis Recent Fever Within 48 Hours Sepsis New/Unexplained Change in Mental Status Sepsis Action Taken by Nursing 03/03/21 11:10 03/03/21 11:20 03/03/21 11:30 Temperature Temperature Source Pulse Rate 65 60 60 Pulse Rate [Apical] Pulse Rate [Left Brachial] Pulse Rate from SpO2 Sensor 65 61 60 Pulse Rhythm [Left Brachial] Pulse Strength [Left Brachial] Respiratory Rate 14 Respiratory Effort / Characteristics Respiratory Depth Blood Pressure 159/60 H Blood Pressure [Left Arm] Blood Pressure Mean 93 Blood Pressure Mean [Left Arm] Blood Pressure Position [Left Arm] Pulse Oximetry 95 93 91 Oxygen Delivery Method Sepsis Recent Fever Within 48 Hours Sepsis New/Unexplained Change in Mental Status Sepsis Action Taken by Nursing 03/03/21 11:31 03/03/21 11:40 03/03/21 11:50 Temperature Temperature Source Pulse Rate 60 62 60 Pulse Rate [Apical] Pulse Rate [Left Brachial] Pulse Rate from SpO2 Sensor 60 62 60 Pulse Rhythm [Left Brachial] Pulse Strength [Left Brachial] Respiratory Rate 23 Respiratory Effort / Characteristics Respiratory Depth Blood Pressure Blood Pressure [Left Arm] Blood Pressure Mean Blood Pressure Mean [Left Arm] Blood Pressure Position [Left Arm] Pulse Oximetry 93 95 93 Oxygen Delivery Method Sepsis Recent Fever Within 48 Hours Sepsis New/Unexplained Change in Mental Status Sepsis Action Taken by Nursing 03/03/21 12:00 03/03/21 12:01 03/03/21 12:10 Temperature Temperature Source Pulse Rate 60 62 62 Pulse Rate [Apical] Pulse Rate [Left Brachial] Pulse Rate from SpO2 Sensor 60 62 60 Pulse Rhythm [Left Brachial] Pulse Strength [Left Brachial] Respiratory Rate 21 20 18 Respiratory Effort / Characteristics Respiratory Depth Blood Pressure 175/63 H Blood Pressure [Left Arm] Blood Pressure Mean 100 Blood Pressure Mean [Left Arm] Blood Pressure Position [Left Arm] Pulse Oximetry 95 94 95 Oxygen Delivery Method Sepsis Recent Fever Within 48 Hours Sepsis New/Unexplained Change in Mental Status Sepsis Action Taken by Nursing 03/03/21 12:20 03/03/21 12:30 03/03/21 12:31 Temperature Temperature Source Pulse Rate 62 60 67 Pulse Rate [Apical] 60 Pulse Rate [Left Brachial] Pulse Rate from SpO2 Sensor 59 L 60 59 L Pulse Rhythm [Left Brachial] Pulse Strength [Left Brachial] Respiratory Rate 18 Respiratory Effort / Characteristics Respiratory Depth Blood Pressure 196/70 H Blood Pressure [Left Arm] 176/80 H Blood Pressure Mean 112 Blood Pressure Mean [Left Arm] 112 Blood Pressure Position [Left Arm] Pulse Oximetry 95 94 95 Oxygen Delivery Method Room Air Sepsis Recent Fever Within 48 Hours Sepsis New/Unexplained Change in Mental Status Sepsis Action Taken by Nursing 03/03/21 12:40 03/03/21 12:50 03/03/21 13:00 Temperature Temperature Source Pulse Rate 64 60 60 Pulse Rate [Apical] Pulse Rate [Left Brachial] Pulse Rate from SpO2 Sensor 60 60 60 Pulse Rhythm [Left Brachial] Pulse Strength [Left Brachial] Respiratory Rate 16 23 Respiratory Effort / Characteristics Respiratory Depth Blood Pressure 184/72 H Blood Pressure [Left Arm] Blood Pressure Mean 109 Blood Pressure Mean [Left Arm] Blood Pressure Position [Left Arm] Pulse Oximetry 97 96 96 Oxygen Delivery Method Sepsis Recent Fever Within 48 Hours Sepsis New/Unexplained Change in Mental Status Sepsis Action Taken by Nursing 03/03/21 13:10 03/03/21 13:20 03/03/21 13:30 Temperature Temperature Source Pulse Rate 60 60 60 Pulse Rate [Apical] Pulse Rate [Left Brachial] Pulse Rate from SpO2 Sensor 60 60 60 Pulse Rhythm [Left Brachial] Pulse Strength [Left Brachial] Respiratory Rate 14 Respiratory Effort / Characteristics Respiratory Depth Blood Pressure 157/62 H Blood Pressure [Left Arm] Blood Pressure Mean 93 Blood Pressure Mean [Left Arm] Blood Pressure Position [Left Arm] Pulse Oximetry 93 95 94 Oxygen Delivery Method Sepsis Recent Fever Within 48 Hours Sepsis New/Unexplained Change in Mental Status Sepsis Action Taken by Nursing 03/03/21 13:40 03/03/21 14:20 03/03/21 14:37 Temperature 36.4 C L Temperature Source Oral Pulse Rate 62 60 Pulse Rate [Apical] Pulse Rate [Left Brachial] 60 Pulse Rate from SpO2 Sensor 62 Pulse Rhythm [Left Brachial] Regular Pulse Strength [Left Brachial] Normal Respiratory Rate 24 22 Respiratory Effort / Characteristics Non-Labored Respiratory Depth Normal Blood Pressure Blood Pressure [Left Arm] 198/112 H Blood Pressure Mean Blood Pressure Mean [Left Arm] 140 Blood Pressure Position [Left Arm] Sitting Pulse Oximetry 95 94 Oxygen Delivery Method Room Air Sepsis Recent Fever Within 48 Hours Sepsis New/Unexplained Change in Mental Status Sepsis Action Taken by Nursing 03/03/21 15:36 Temperature 36.4 C L Temperature Source Oral Pulse Rate Pulse Rate [Apical] 60 Pulse Rate [Left Brachial] Pulse Rate from SpO2 Sensor Pulse Rhythm [Left Brachial] Pulse Strength [Left Brachial] Respiratory Rate 16 Respiratory Effort / Characteristics Non-Labored Respiratory Depth Normal Blood Pressure Blood Pressure [Left Arm] 187/66 H Blood Pressure Mean Blood Pressure Mean [Left Arm] 106 Blood Pressure Position [Left Arm] Lying Pulse Oximetry 93 Oxygen Delivery Method Room Air Sepsis Recent Fever Within 48 Hours Sepsis New/Unexplained Change in Mental Status Sepsis Action Taken by Nursing Laboratory Data Attestation: I reviewed the patient's lab results. Result diagrams: 03/03/21 09:44 03/03/21 09:44 Lab Results 03/03/21 03/03/21 03/03/21 Range/Units 09:44 09:44 11:30 WBC 8.79 (4.8-10.8) K/uL RBC 3.71 L (4.7-6.1) M/uL Hgb 11.4 L (14.0-18.0) g/dL Hct 34.4 L (42-52) % MCV 92.7 (80-100) fL MCH 30.7 (25-34) pg MCHC 33.1 (32-36) g/dL RDW Std Deviation 49.7 H (36.4-46.3) fL RDW Coeff of [place] 14.7 H (11.5-14.5) % Plt Count 248 (130-400) K/uL MPV 9.8 (7.4-10.4) fL Immature Gran % (Auto) 0.2 % Neut % (Auto) 74.2 % Lymph % (Auto) 14.1 % [place] % (Auto) 7.5 % Eos % (Auto) 3.8 % Baso % (Auto) 0.2 % Neut # (Auto) 6.52 H (1.4-6.5) K/uL Lymph # (Auto) 1.24 (1.2-3.4) K/uL [place] # (Auto) 0.66 H (0.11-0.59) K/uL Eos # (Auto) 0.33 (0-0.5) K/uL Baso # (Auto) 0.02 (0-0.2) K/uL Immature Gran # (Auto) 0.02 (0.00-0.02) K/uL Sodium 142 (136-145) mmol/L Potassium 3.8 (3.5-5.1) mmol/L Chloride 111 H (98-107) mmol/L Carbon Dioxide 23 (21-32) mmol/L Anion Gap 8.0 (3-11) BUN 21 H (7-18) mg/dl Creatinine 0.96 (0.6-1.4) mg/dl Est Cr Clr Drug Dosing 56.3 ml/min Est GFR ( Amer) 83.2 Est GFR (Non-Af Amer) 71.8 BUN/Creatinine Ratio 21.3 H (10-20) Glucose 115 H (70-99) mg/dl Calcium 8.7 (8.5-10.1) mg/dl Phosphorus 3.6 (2.5-4.9) mg/dl Magnesium 2.1 (1.8-2.4) mg/dl Total Bilirubin 1.1 H (0.2-1) mg/dl Direct Bilirubin 0.3 H (0-0.2) mg/dl AST 8 L (15-37) U/L ALT 12 (12-78) U/L Alkaline Phosphatase 76 (45-117) U/L Troponin I 0.018 (0-0.045) ng/ml NT-Pro-B Natriuret Pep 9128 H (0-1800) pg/ml Total Protein 7.0 (6.4-8.2) gm/dl Albumin 3.5 (3.4-5.0) gm/dl Globulin 3.5 (2.5-4.0) gm/dl Albumin/Globulin Ratio 1.0 (0.9-2) Lipase 80 (73-393) U/L COVID-19 Eval Order [facility]FluRsv at [facility] SARS-CoV-2 (PCR) (Negative) Influenza Type A (PCR) (Neg) Influenza Type B (PCR) (Neg) RSV (RT-PCR) (Neg) 05/06/21 05/06/21 Range/Units 11:30 16:03 WBC (4.8-10.8) K/uL RBC (4.7-6.1) M/uL Hgb (14.0-18.0) g/dL Hct (42-52) % MCV (80-100) fL MCH (25-34) pg MCHC (32-36) g/dL RDW Std Deviation (36.4-46.3) fL RDW Coeff of [place] (11.5-14.5) % Plt Count (130-400) K/uL MPV (7.4-10.4) fL Immature Gran % (Auto) % Neut % (Auto) % Lymph % (Auto) % [place] % (Auto) % Eos % (Auto) % Baso % (Auto) % Neut # (Auto) (1.4-6.5) K/uL Lymph # (Auto) (1.2-3.4) K/uL [place] # (Auto) (0.11-0.59) K/uL Eos # (Auto) (0-0.5) K/uL Baso # (Auto) (0-0.2) K/uL Immature Gran # (Auto) (0.00-0.02) K/uL Sodium (136-145) mmol/L Potassium (3.5-5.1) mmol/L Chloride (98-107) mmol/L Carbon Dioxide (21-32) mmol/L Anion Gap (3-11) BUN (7-18) mg/dl Creatinine (0.6-1.4) mg/dl Est Cr Clr Drug Dosing ml/min Est GFR ( Amer) Est GFR (Non-Af Amer) BUN/Creatinine Ratio (10-20) Glucose (70-99) mg/dl Calcium (8.5-10.1) mg/dl Phosphorus (2.5-4.9) mg/dl Magnesium (1.8-2.4) mg/dl Total Bilirubin (0.2-1) mg/dl Direct Bilirubin (0-0.2) mg/dl AST (15-37) U/L ALT (12-78) U/L Alkaline Phosphatase (45-117) U/L Troponin I 0.020 (0-0.045) ng/ml NT-Pro-B Natriuret Pep (0-1800) pg/ml Total Protein (6.4-8.2) gm/dl Albumin (3.4-5.0) gm/dl Globulin (2.5-4.0) gm/dl Albumin/Globulin Ratio (0.9-2) Lipase (73-393) U/L COVID-19 Eval Order SARS-CoV-2 (PCR) NEGATIVE (Negative) Influenza Type A (PCR) Negative (Neg) Influenza Type B (PCR) Negative (Neg) RSV (RT-PCR) Negative (Neg) Administered Medications Bimatoprost (Bimatoprost 0.01% Op Soln 2.5 Ml Btl) 1 drops OP HS [facility] Stop: 04/02/21 20:59 Last Admin: 03/03/21 21:16 Dose: 1 drops Documented by: [id number] Brimonidine Tartrate (Brimonidine Tartrate 0.2% 5ml) 1 drops OPL TID [facility] Stop: 04/02/21 14:36 Last Admin: 03/03/21 21:15 Dose: 1 drops Documented by: [id number] Admin: 03/03/21 16:43 Dose: 1 drops Documented by: [id number] Carvedilol (Carvedilol 3.125 Mg Tab) 3.125 mg PO BID [facility] Stop: 04/02/21 12:44 Last Admin: 03/03/21 21:53 Dose: 3.125 mg Documented by: [id number] Admin: 03/03/21 13:35 Dose: 3.125 mg Documented by: [id number] Dorzolamide/Timolol (Dorzolamide/Timolol 22.3/6.8mg/Ml 10 Ml Btl) 1 drops OPL BID [facility] Stop: 04/02/21 20:59 Last Admin: 03/03/21 21:16 Dose: 1 drops Documented by: [id number] Heparin Sodium/Dextrose (Heparin Sodium/Dextrose) 25,000 units in 500 mls @ 24 mls/hr IV .[id number] [facility]; Protocol Stop: 04/02/21 18:37 Last Admin: 03/03/21 21:14 Dose: 1,200 units/hr, 24 mls/hr Documented by: [id number] Cosigned by: [id number] Insulin Aspart (Insulin Aspart 100 Units/Ml 3 Ml Pen) 0 units SC ACHS [facility] Stop: 04/02/21 16:29 Last Admin: 03/03/21 21:14 Dose: Not Given Documented by: [id number] Cosigned by: [id number] Admin: 03/03/21 17:28 Dose: Not Given Documented by: [id number] Losartan Potassium (Losartan Potassium 25 Mg Tab) 12.5 mg PO QAM [facility] Stop: 04/02/21 12:44 Last Admin: 03/03/21 13:34 Dose: 12.5 mg Documented by: [id number] Discontinued Medications Aspirin (Aspirin Chew 324 Mg) 324 mg PO NOW STA Stop: 03/03/21 11:23 Last Admin: 03/03/21 11:38 Dose: Not Given Documented by: [id number] Furosemide (Furosemide 40 Mg/4 Ml Vial) 20 mg IV NOW STA Stop: 03/03/21 12:39 Last Admin: 03/03/21 13:35 Dose: 20 mg Documented by: [id number] Heparin Sodium/Dextrose (Heparin Iv Adult Wt-Based Standard *No* Bolus Protocol) 1 ea IV Q15M ONE; Protocol Stop: 03/03/21 18:23 Last Admin: 03/03/21 21:15 Dose: Not Given Documented by: [id number] Hydralazine HCl (Hydralazine Hcl 20 Mg/Ml Vial) 5 mg IV NOW ONE Stop: 03/03/21 16:18 Last Admin: 03/03/21 16:42 Dose: 5 mg Documented by: [id number] Imaging Data Radiologist's Impression: Chest X-Ray 03/03/21 10:30 XR chest 1V portable CLINICAL HISTORY: Atypical chest pain COMPARISON STUDY: 02/04/2021 FINDINGS: The heart is borderline enlarged. There are postsurgical changes of a midline sternotomy. There is a left subclavian dual-chamber central venous pacemaker. There is diffuse elevation of interstitium. There are trace pleural effusions. The findings likely represent congestive failure/fluid overload although an interstitial infectious/inflammatory process could appear similar.[ IMPRESSION: 1. Diffuse elevation of interstitium with small bilateral pleural effusions. The findings likely represent congestive failure/fluid overload. Clinical and radiographic follow-up are recommended. ACT 112: Negative or not required by law. Electronically signed by: Vincent Calderon M.D. 03/03/2021 10:57 AM Discharge Plan Visit Data Chief Complaint: Chest Pain Stated Complaint: CHEST PAIN, SOB ED Provider: Piyush De Jesus Discharge Problem: Substernal chest pain, Cardiomyopathy, Hx of exertional chest pain Patient Disposition: Admitted As Inpatient Discharge Instructions Interventions: ED Discharge Assessment Last Done: 03/03/21 13:59
--- NOTE | 2021-03-03 10:58 | XRay Report ---
XR chest 1V portable CLINICAL HISTORY: Atypical chest pain COMPARISON STUDY: 02/04/2021 FINDINGS: The heart is borderline enlarged. There are postsurgical changes of a midline sternotomy. T here is a left subclavian dual-chamber central venous pacemaker. There is diffuse elevation of inters titium. There are trace pleural effusions. The findings likely represent congestive failure/fluid ove rload although an interstitial infectious/inflammatory process could appear similar.[ IMPRESSION: 1. Diffuse elevation of interstitium with small bilateral pleural effusions. The findings likely repr esent congestive failure/fluid overload. Clinical and radiographic follow-up are recommended. ACT 112: Negative or not required by law. Electronically signed by: Vincent Calderon M.D. 03/03/2021 10:57 AM
[2021-03-03 11:13] LABS: Albumin Level 3.5 gm/dl (3.4-5.0); BUN Creatinine Ratio 21.3 (10-20); Bilirubin Direct 0.3 mg/dl (0-0.2); Calcium 8.7 mg/dl (8.5-10.1); Creatinine Clr Calc Pharmacy 56.3 ml/min; Est GFR (African American) 83.2; Est GFR (Non-African American) 71.8; Magnesium 2.1 mg/dl (1.8-2.4); Potassium 3.8 mmol/L (3.5-5.1)
[2021-03-03 11:16] LABS: Bilirubin,Total 1.1 mg/dl (0.2-1); Globulin 3.5 gm/dl (2.5-4.0); Phosphorus 3.6 mg/dl (2.5-4.9); Troponin I 0.018 ng/ml (0-0.045)
[2021-03-03] MEDS ORDERED: ASPIRIN CHEW 324 MG PO STA (11:22)
--- NOTE | 2021-03-03 11:39 | Electrocardiogram Report ---
Test Reason : Blood Pressure : / mmHG Vent. Rate : 063 BPM Atrial Rate : 065 BPM P-R Int : 000 ms QRS Dur : 156 ms QT Int : 490 ms P-R-T Axes : 000 -70 101 degrees QTc Int : 501 ms Atrial fibrillation Ventricular-paced rhythm with occasional AV conduction or pvc Abnormal ECG When compared with ECG of 04-FEB-2021 13:33, Premature ventricular complexes are now Present No significant change Confirmed by Erik Delgado ([id number]) on 03/03/2021 11:39:26 AM Referred By: REFERRED SELF Confirmed By:Erik Delgado
--- NOTE | 2021-03-03 12:04 | History & Physical Report ---
Date of Service March 03, 2021 Assessment & Plan (1) CHF (congestive heart failure): - Admit to tele for observation for chest pain - Trend cardiac biomarkers, initial set was negative - EKG reviewed as above - Check 2 D echo, last EF was 40-55% a year ago - If negative enzymes and remains chest pain free can consider a dobutamine stress test tomorrow morning. - Cardiology consulted - appreciate recommendations - BNP elevated at 9128, CXR reviewed showing bilateral small pleural effusions, sob as per HPI. pt does not appear significantly volume overloaded currently. Missed am meds including lasix so will administer IV dose x 1 and monitor. - Weighs himself twice weekly and is 162-164 lbs at baseline. - Daily weights, strict I/Os, fluid restriction of 1500mL - PT/OT consulted - COVID negative - Not on anticoagulation, low threshold for checking CTA to r/o PE if worsening SOB (2) CAD (coronary artery disease): - hx of such - hx of moderate- severe bilateral internal carotid artery disease- Consider carotid ultrasound - Continue BB, statin, ARB, aspirin - Trending troponins as above - Cards consulted (3) Cardiomyopathy: - Checking echo, as above (4) S/P cardiac pacemaker procedure: - Follows with Cole Marks as an outpatient, was supposed to have pacemaker interrogation scheduled for March 22 this month, will perform now with new onset of shortness of breath and chest pain. (5) HTN (hypertension): -Continue carvedilol, losartan, Lasix as above -BP slightly elevated it was systolic 170 while in the ER-likely secondary to missing morning medications (6) HLD (hyperlipidemia): -Statin therapy -Check lipid panel fasting with a.m. labs (7) Aortic stenosis: -Bertie on exam, checking 2D echo to evaluate -Cardiology as above (8) Diabetes mellitus, type II: -Holding C4 PLANNER Metformin, ISS with Accu-Cheks AC at bedtime, last A1c 6.9 on 04/27/2020, recheck with a.m. labs (9) DVT prophylaxis: - teds, scds CODE: DNR/DNI Dispo: From home, likely to remain in the hospital x 1-2 days History of Present Illness Chief Complaint: Chest pain Primary Care Provider: Jaelyn Haney MD This is an 86 yo M with PMHx of CAD s/p bypass in 2007, moderately severe bilateral internal carotid arter disease, HTN, HLD, chronic systolic CHF with EF of 40-55%, aortic stenosis, cardiac pacemaker in situ, DM II, CKD stage III who presents with acute onset of chest pain. Mr. Padilla was recently evaluated at [facility] on 02/04/2021 after experiencing a fall preceded by dizziness, lightheadedness with positional change. He admits to intermittent episodes of dizziness followed by lightheadedness always with positional change. During his visit there Lasix was reduced from 40 mg to 20 mg/day. Losartan was reduced from 25 to 12.5 mg daily. Since then he reports his blood pressure has been checked daily by an automatic cuff at home and is either normal to slightly high. He is unsure about changes in symptoms since change of medication was made. This morning he developed onset of shortness of breath with chest heaviness and pressure which lasted for approximately 15 minutes. Shortness of breath came on at rest. Says that he often has chest pain several times a day, however this one was different than usual. He had not taken any of his morning medications yet. His brother in law took him to an urgent care clinic. There, they gave him 324 mg of aspirin and sent him to the ER. He denies any current chest pain, heaviness, palpitations, pressure, shortness of breath and reports that he would ultimately like to go home. He is agreeable to admission with his brother in law here at bedside to support the history. He has not yet eaten anything today and is hungry. Denies any nausea, abdominal pain, diarrhea or constipation. No recent falls. Allergies Allergy/AdvReac Type Severity Reaction Status Date / Time No Known Allergies Allergy Unverified 02/04/21 13:49 Home Medications Medication Instructions Recorded Confirmed Type Lumigan 1 drp OPB HS 12/31/19 03/03/21 History aspirin 81 mg PO QAM 12/31/19 03/03/21 History atorvastatin 40 mg PO QAM 12/31/19 03/03/21 History brimonidine 1 drp OPL TID 12/31/19 03/03/21 History dorzolamide-timolol 1 drp OPL BID 12/31/19 03/03/21 History losartan 12.5 mg PO QAM 12/31/19 03/03/21 History metformin 500 mg PO BIDM 12/31/19 03/03/21 History carvedilol 3.125 mg PO BID 02/04/21 03/03/21 History cyanocobalamin (vitamin B-12) 1,000 mcg PO QAM 02/04/21 03/03/21 History furosemide 20 mg PO QAM 02/04/21 03/03/21 History aspirin 324 mg PO ONCE 03/03/21 03/03/21 History Past Med/Surg History Medical History (Updated 03/03/21 @ 12:57 by Sowmya Casas PA-C) Aortic stenosis Bradycardia CAD (coronary artery disease) Diabetes Diabetes mellitus, type II Dizziness HLD (hyperlipidemia) HTN (hypertension) Mitral regurgitation Neuropathy Surgical History (Updated 02/19/21 @ 00:08 by Erica Christensen) 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 S/P cardiac pacemaker procedure Family History Mother Heart disease Father Prostate cancer Social History Smoking Status: Former smoker Second Hand Exposure: No; Hx Alcohol Use: Yes Alcohol type: beer Hx Substance Use: No Preferred Language: Mongolian Communication Ability: Effective 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 Beliefs That Will Affect Care: None marital status: Unknown Current Living Situation: Alone How many Children do You have: 2 Feels Safe at Home: Yes Assistive Devices: Cane Review of Systems Review of Systems: Constitutional: No fever, sweats or chills Eyes: No diplopia, no worsening or blurred vision, + cannot see out of the right eye ENT: normal hearing, no trouble swallowing Respiratory: No cough, sputum, dyspnea at rest or on exertion Cardiovascular: As per HPI, no current chest pain Abdomen: No pain, nausea, vomiting, diarrhea or constipation Musculoskeletal: No joint pain, calf pain, swelling Neurologic: No weakness, numbness/tingling, or balance problems Psychiatric: No anxiety or depression Skin: No rash or itch Physical Exam Physical Exam: General: awake, alert, no apparent distress Head: Normocephalic, atraumatic ENT: + right eye strabismus, nonreactive to light, + blindness R eye, Left reactive to light, no pharyngeal exudate, mucous membranes moist Chest: + faint crackles in the LLL, nearly absent at bases bilaterally, on RA with o2 sats 96% Cardiac: Irregularly irregular, rate controlled, + pacer, + loud systolic murmur, no JVD, normal peripheral pulses, good capillary refill Abdominal: NABS x 4 quadrants, soft, nondistended, nontender to palpation, no rebound or guarding Extremities: Normal inspection, no peripheral edema or erythema, calfs nontender to palpation Psych: Normal mood and affect Neuro: AAO x 3, strength intact bilaterally and rated 5/5, no motor deficits, speech is clear, no peripheral sensory deficits Results & Data Results & Data ([facility]) Vital Signs (Past 12 Hours) Vital Signs Temp Pulse Resp BP Pulse Ox 03/03/21 10:31 96 03/03/21 10:22 37.4 C 60 18 162/68 H 96 Laboratory Results Laboratory Results - last 24 hr 03/03/21 03/03/21 03/03/21 09:44 09:44 11:30 WBC 8.79 RBC 3.71 L Hgb 11.4 L Hct 34.4 L MCV 92.7 MCH 30.7 MCHC 33.1 RDW Std Deviation 49.7 H RDW Coeff of [place] 14.7 H Plt Count 248 MPV 9.8 Immature Gran % (Auto) 0.2 Neut % (Auto) 74.2 Lymph % (Auto) 14.1 Cecil % (Auto) 7.5 Eos % (Auto) 3.8 Baso % (Auto) 0.2 Neut # (Auto) 6.52 H Lymph # (Auto) 1.24 Cecil # (Auto) 0.66 H Eos # (Auto) 0.33 Baso # (Auto) 0.02 Immature Gran # (Auto) 0.02 Sodium 142 Potassium 3.8 Chloride 111 H Carbon Dioxide 23 Anion Gap 8.0 BUN 21 H Creatinine 0.96 Est Cr Clr Drug Dosing 56.3 Est GFR ( Amer) 83.2 Est GFR (Non-Af Amer) 71.8 BUN/Creatinine Ratio 21.3 H Glucose 115 H Calcium 8.7 Phosphorus 3.6 Magnesium 2.1 Total Bilirubin 1.1 H Direct Bilirubin 0.3 H AST 8 L ALT 12 Alkaline Phosphatase 76 Troponin I 0.018 NT-Pro-B Natriuret Pep 9128 H Total Protein 7.0 Albumin 3.5 Globulin 3.5 Albumin/Globulin Ratio 1.0 Lipase 80 COVID-19 Eval Order CovFluRsv at [facility] SARS-CoV-2 (PCR) Influenza Type A (PCR) Influenza Type B (PCR) RSV (RT-PCR) 03/03/21 11:30 WBC RBC Hgb Hct MCV MCH MCHC RDW Std Deviation RDW Coeff of [place] Plt Count MPV Immature Gran % (Auto) Neut % (Auto) Lymph % (Auto) Cecil % (Auto) Eos % (Auto) Baso % (Auto) Neut # (Auto) Lymph # (Auto) Cecil # (Auto) Eos # (Auto) Baso # (Auto) Immature Gran # (Auto) Sodium Potassium Chloride Carbon Dioxide Anion Gap BUN Creatinine Est Cr Clr Drug Dosing Est GFR ( Amer) Est GFR (Non-Af Amer) BUN/Creatinine Ratio Glucose Calcium Phosphorus Magnesium Total Bilirubin Direct Bilirubin AST ALT Alkaline Phosphatase Troponin I NT-Pro-B Natriuret Pep Total Protein Albumin Globulin Albumin/Globulin Ratio Lipase COVID-19 Eval Order SARS-CoV-2 (PCR) NEGATIVE Influenza Type A (PCR) Negative Influenza Type B (PCR) Negative RSV (RT-PCR) Negative Diagnostic Findings Chest X-Ray 03/03/21 10:30 XR chest 1V portable CLINICAL HISTORY: Atypical chest pain COMPARISON STUDY: 02/04/2021 FINDINGS: The heart is borderline enlarged. There are postsurgical changes of a midline sternotomy. There is a left subclavian dual-chamber central venous pacemaker. There is diffuse elevation of interstitium. There are trace pleural effusions. The findings likely represent congestive failure/fluid overload although an interstitial infectious/inflammatory process could appear similar.[ IMPRESSION: 1. Diffuse elevation of interstitium with small bilateral pleural effusions. The findings likely represent congestive failure/fluid overload. Clinical and radiographic follow-up are recommended. ACT 112: Negative or not required by law. Electronically signed by: Vincent Calderon M.D. 03/03/2021 10:57 AM ECG Rhythm: atrial fibrillation Additional Comments: Vent. Rate : 063 BPM Atrial Rate : 065 BPM P-R Int : 000 ms QRS Dur : 156 ms QT Int : 490 ms P-R-T Axes : 000 -70 101 degrees QTc Int : 501 ms Atrial fibrillation Ventricular-paced rhythm with occasional AV conduction or pvc Abnormal ECG When compared with ECG of 04-FEB-2021 13:33, Premature ventricular complexes are now Present No significant change Code Status & VTE Plan Code Status DNR/DNI - discussed with pt and brother at bedside Supervising Physician Co-Signing Physician Notes Patient seen and examined by me, care coordinated with Diana Casas PA-C, please refer to her note above for further detail. Patient seen in room C12, he is currently lying in bed, in no acute distress. Reports that his chest pain has resolved at this time. However pain in the morning that he experienced was different than his usual pain. Reports that he usually has several episodes of chest pain a day but this morning was more severe and he felt short of breath. He was supposed to follow-up with cardiology today, with Cole Marks PA-C. Will let cardiology office know that patient will be missing the appointment. Initially presented to the urgent care, and was sent then to the hospital. Chest x-ray in the ED shows some interstitial pulmonary edema mild. BNP elevated at 9000. Troponin at 0.018. Patient is alert and oriented and answer questions appropriately. Heart sounds regular with soft solid murmur. Lungs mostly clear to auscultation bilaterally, without any wheezing or rhonchi only very mild bilateral crackles. Abdomen is soft, nontender nondistended. There is no lower extremity edema noted. Abdomen soft nontender nondistended. Skin is warm dry, well-perfused. Patient's [id number] is present at the bedside, and helps to provide history. Patient was given aspirin 324 mg in the ED, will give IV Lasix 1 dose, as patient did not take his medications this morning either. Dr. Rich (cardiology) notified. MD Cristi (1) CHF (congestive heart failure) Heart failure type: other Qualified Code(s): I50.9 - Heart failure, unspecified
[2021-03-03 12:32] LABS: Influenza A virus by PCR Negative (Neg); Influenza B virus by PCR Negative (Neg); RSV by PCR Negative (Neg); SARS CoV2 RNA(COVID-19) InHosp NEGATIVE (Negative)
[2021-03-03] MEDS ORDERED: FUROSEMIDE 40 MG/4 ML VIAL IV STA (12:38)
[2021-03-03] MEDS: LOSARTAN POTASSIUM 25 MG TAB PO SCH (13:34)
[2021-03-03] MEDS: carvediloL 3.125 MG TAB PO SCH ×2 (13:35→21:53)
--- NOTE | 2021-03-03 14:01 | Cardiology Consultation ---
Date of Consultation March 03, 2021 Assessment & Plan (1) CHF (congestive heart failure): (2) S/P cardiac pacemaker procedure: (3) Mitral regurgitation: (4) Aortic stenosis: (5) Atrial fibrillation: The patient appears comfortable. He was given Lasix earlier in the emergency department. His chest x-ray does suggest congestive heart failure and his pro natruretic peptide is elevated. On his EKG he appears to be in atrial fibrillation with a ventricular paced rhythm. The atrial fibrillation may be new for him and could have tipped him into heart failure. I would recommend an echocardiogram. Continued IV Lasix as needed. He will need to be anticoagulated. We will follow along with you during his hospital stay. History of Present Illness History of Present Illness This is a 86-year-old male patient who underwent coronary artery bypass surgery in 2007 in [place]. He also received a [place] pacemaker in 2017 in [place]. He transferred his care to us approximately 2 years ago when he moved into the [facility]. He has mixed valvular disease including a calcified aortic valve with some degree of aortic stenosis but the principal pathology is aortic insufficiency which is moderate. He also has moderate mitral regurgitation. Last echocardiogram indicated an left ventricular ejection fraction of 55%. The left atrium was severely enlarged with evidence of diastolic dysfunction. He was in his usual state of health until this morning he woke up with a bandlike tightness across his chest and shortness of breath. He has had this before whenever he was doing some type of activity. He would stop and his symptoms would go away and he would be able to continue. He has had no lower extremity edema. He denies orthopnea. No heart palpitations or tachycardia. Allergies Allergy/AdvReac Type Severity Reaction Status Date / Time No Known Allergies Allergy Unverified 02/04/21 13:49 Home Medications Medication Instructions Recorded Confirmed Type Lumigan 1 drp OPB HS 12/31/19 03/03/21 History aspirin 81 mg PO QAM 12/31/19 03/03/21 History atorvastatin 40 mg PO QAM 12/31/19 03/03/21 History brimonidine 1 drp OPL TID 12/31/19 03/03/21 History dorzolamide-timolol 1 drp OPL BID 12/31/19 03/03/21 History losartan 12.5 mg PO QAM 12/31/19 03/03/21 History metformin 500 mg PO BIDM 12/31/19 03/03/21 History carvedilol 3.125 mg PO BID 02/04/21 03/03/21 History cyanocobalamin (vitamin B-12) 1,000 mcg PO QAM 02/04/21 03/03/21 History furosemide 20 mg PO QAM 02/04/21 03/03/21 History aspirin 324 mg PO ONCE 03/03/21 03/03/21 History Patient History Medical History (Updated 03/03/21 @ 14:24 by Shorty Rich DO) Aortic stenosis Bradycardia CAD (coronary artery disease) Diabetes Diabetes mellitus, type II Dizziness HLD (hyperlipidemia) HTN (hypertension) Mitral regurgitation Neuropathy Surgical History 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 S/P cardiac pacemaker procedure Family History Mother Heart disease Father Prostate cancer Social History Smoking Status: Unknown if ever smoked Second Hand Exposure: No; Hx Alcohol Use: No Hx Substance Use: No Preferred Language: Azeri Communication Ability: Effective Acute Care Clinical Nurse Specialist Required: No Beliefs That Will Affect Care: None marital status: Unknown Current Living Situation: Personal Care Facility How many Children do You have: 2 Feels Safe at Home: Yes Assistive Devices: Walker Review of Systems Review of Systems: All systems reviewed & are unremarkable except as noted in HPI & below Nothing additional to add. Physical Exam Physical Exam: General: no acute distress and stated age Head: normocephalic, no masses, lesions, tenderness or abnormalities Eyes: conjunctiva are pink and non-injected, sclera clear Neck: supple, no adenopathy, no bruits, normal jugular venous pulse, no hepat ojugular reflux Chest: normal shape and normal respiratory effort Lungs: clear to auscultation and percussion Cardiac Exam: - regular rate & rhythm, no murmurs gallops or rubs - normal S1, normal S2 Pulses: 2(+) throughout Abdomen: abdomen soft, non-tender, no abnormal masses and no hepatosplenomegaly Musculoskeletal: no gait disturbance, no joint inflammation, no deforming arthritis Extremities: no edema and no cyanosis Neuro: grossly normal exam Results & Data ([facility]) Vital Signs (Past 12 Hours) Vital Signs Temp Pulse Pulse Resp BP BP Pulse Ox 03/03/21 13:40 62 24 95 03/03/21 13:30 60 157/62 H 94 03/03/21 13:20 60 14 95 03/03/21 13:10 60 93 03/03/21 13:00 60 23 184/72 H 96 03/03/21 12:50 60 16 96 03/03/21 12:40 64 97 03/03/21 12:31 67 95 03/03/21 12:30 60 196/70 H 94 03/03/21 12:20 62 60 18 176/80 H 95 03/03/21 12:10 62 18 95 03/03/21 12:01 62 20 94 03/03/21 12:00 60 21 175/63 H 95 03/03/21 11:50 60 23 93 03/03/21 11:40 62 95 03/03/21 11:31 60 93 03/03/21 11:30 60 159/60 H 91 03/03/21 11:20 60 93 03/03/21 11:10 65 14 95 03/03/21 11:01 65 21 94 03/03/21 11:00 60 22 162/61 H 96 03/03/21 10:50 60 17 95 03/03/21 10:40 60 23 94 03/03/21 10:31 60 14 95 03/03/21 10:30 60 14 154/60 H 95 03/03/21 10:27 60 20 92 03/03/21 10:22 37.4 C 60 18 162/68 H 96 03/03/21 10:18 60 15 182/68 H 92 Laboratory Results Laboratory Results - last 24 hr 03/03/21 03/03/21 03/03/21 09:44 09:44 11:30 WBC 8.79 RBC 3.71 L Hgb 11.4 L Hct 34.4 L MCV 92.7 MCH 30.7 MCHC 33.1 RDW Std Deviation 49.7 H RDW Coeff of [place] 14.7 H Plt Count 248 MPV 9.8 Immature Gran % (Auto) 0.2 Neut % (Auto) 74.2 Lymph % (Auto) 14.1 [place] % (Auto) 7.5 Eos % (Auto) 3.8 Baso % (Auto) 0.2 Neut # (Auto) 6.52 H Lymph # (Auto) 1.24 [place] # (Auto) 0.66 H Eos # (Auto) 0.33 Baso # (Auto) 0.02 Immature Gran # (Auto) 0.02 Sodium 142 Potassium 3.8 Chloride 111 H Carbon Dioxide 23 Anion Gap 8.0 BUN 21 H Creatinine 0.96 Est Cr Clr Drug Dosing 56.3 Est GFR ( Amer) 83.2 Est GFR (Non-Af Amer) 71.8 BUN/Creatinine Ratio 21.3 H Glucose 115 H Calcium 8.7 Phosphorus 3.6 Magnesium 2.1 Total Bilirubin 1.1 H Direct Bilirubin 0.3 H AST 8 L ALT 12 Alkaline Phosphatase 76 Troponin I 0.018 NT-Pro-B Natriuret Pep 9128 H Total Protein 7.0 Albumin 3.5 Globulin 3.5 Albumin/Globulin Ratio 1.0 Lipase 80 COVID-19 Eval Order CovFluRsv at [facility] SARS-CoV-2 (PCR) Influenza Type A (PCR) Influenza Type B (PCR) RSV (RT-PCR) 03/03/21 11:30 WBC RBC Hgb Hct MCV MCH MCHC RDW Std Deviation RDW Coeff of [place] Plt Count MPV Immature Gran % (Auto) Neut % (Auto) Lymph % (Auto) [place] % (Auto) Eos % (Auto) Baso % (Auto) Neut # (Auto) Lymph # (Auto) [place] # (Auto) Eos # (Auto) Baso # (Auto) Immature Gran # (Auto) Sodium Potassium Chloride Carbon Dioxide Anion Gap BUN Creatinine Est Cr Clr Drug Dosing Est GFR ( Amer) Est GFR (Non-Af Amer) BUN/Creatinine Ratio Glucose Calcium Phosphorus Magnesium Total Bilirubin Direct Bilirubin AST ALT Alkaline Phosphatase Troponin I NT-Pro-B Natriuret Pep Total Protein Albumin Globulin Albumin/Globulin Ratio Lipase COVID-19 Eval Order SARS-CoV-2 (PCR) NEGATIVE Influenza Type A (PCR) Negative Influenza Type B (PCR) Negative RSV (RT-PCR) Negative Diagnostic Findings EKG indicates atrial fibrillation with a ventricular paced rhythm. Medications Administered Current Inpatient Medications Carvedilol (Carvedilol 3.125 Mg Tab) 3.125 mg PO BID [facility]AS[facility] Stop: 04/02/21 12:44 Last Admin: 03/03/21 13:35 Dose: 3.125 mg Documented by: Losartan Potassium (Losartan Potassium 25 Mg Tab) 12.5 mg PO [facility] Stop: 04/02/21 12:44 Last Admin: 03/03/21 13:34 Dose: 12.5 mg Documented by:
[2021-03-03] MEDS ORDERED: GLUCOSE 10 TABS/TUBE PO PRN (14:37)
[2021-03-03] MEDS ORDERED: DEXTROSE 50% 50 ML SYRINGE IV PRN (14:37)
[2021-03-03] MEDS ORDERED: CARBOHYDRATES FOR HYPOGLYCEMIA PO PRN (14:37)
[2021-03-03] MEDS ORDERED: GLUCOSE 40% GEL 15 GM TUBE PO PRN (14:37)
[2021-03-03] MEDS ORDERED: GLUCAGON FOR INJ 1 MG VIAL SQ PRN (14:37)
[2021-03-03] MEDS ORDERED: hydrALAZINE HCL 20 MG/ML VIAL IV ONE (16:17)
[2021-03-03] MEDS ORDERED: hydrALAZINE HCL 20 MG/ML VIAL IV PRN (16:23)
[2021-03-03] MEDS ORDERED: LABETALOL HCL IV 5 MG/ML 20ML IV PRN (16:36)
[2021-03-03] MEDS: BRIMONIDINE TARTRATE 0.2% 5ML OPL SCH ×2 (16:43→21:15)
[2021-03-03] MEDS: INSULIN ASPART 100 UNITS/ML 3 ML PEN SC SCH ×2 (17:28→21:14)
[2021-03-03] MEDS ORDERED: Heparin IV Adult Wt-Based Standard *NO* Bolus Protocol IV ONE (18:22)
[2021-03-03] MEDS ORDERED: HEPARIN SODIUM/DEXTROSE 25,000 UNITS/500 ML BAG IV SCH (18:38)
[2021-03-03 18:44] LABS: Partial Thromboplastin Time 26.3 Seconds (21.0-31.0)
[2021-03-03] MEDS: DORZOLAMIDE/TIMOLOL 22.3/6.8MG/ML 10 ML BTL OPL SCH (21:16)
[2021-03-03] MEDS: BIMATOPROST 0.01% OP SOLN 2.5 ML BTL OP SCH (21:16)
[2021-03-04 03:18] LABS: Hematocrit (blood only) 31.2 % (42-52); Hemoglobin 10.7 g/dL (14.0-18.0); Mean Corpuscular Hemoglobin 31.1 pg (25-34); Mean Corpuscular Hgb Conc 34.3 g/dL (32-36); Mean Corpuscular Volume 90.7 fL (80-100); Mean Platelet Volume 9.5 fL (7.4-10.4); Platelet Count 222 K/uL (130-400); RDW Coefficient of Variation 14.7 % (11.5-14.5); RDW Standard Deviation 48.5 fL (36.4-46.3); Red Blood Count 3.44 M/uL (4.7-6.1); White Blood Count 7.36 K/uL (4.8-10.8)
[2021-03-04 03:36] LABS: Albumin Level 3.1 gm/dl (3.4-5.0); BUN Creatinine Ratio 23.2 (10-20); Calcium 8.3 mg/dl (8.5-10.1); Creatinine Clr Calc Pharmacy 59.7 ml/min; Est GFR (African American) 92.5; Est GFR (Non-African American) 79.8; Magnesium 1.9 mg/dl (1.8-2.4); Potassium 3.6 mmol/L (3.5-5.1)
[2021-03-04 03:45] LABS: Bilirubin,Total 1.1 mg/dl (0.2-1); Globulin 3.2 gm/dl (2.5-4.0); Phosphorus 3.1 mg/dl (2.5-4.9); Thyroid Stimulating Hormone 1.64 uIu/ml (0.300-4.500); Total Protein 6.3 gm/dl (6.4-8.2); Troponin I 0.025 ng/ml (0-0.045)
[2021-03-04 03:46] LABS: Partial Thromboplastin Ratio 2.9
[2021-03-04 03:48] LABS: Partial Thromboplastin Time 75.7 Seconds (21.0-31.0)
[2021-03-04 06:30] LABS: Estimated Average Glucose 131 mg/dl; Hemoglobin A1C 6.2 % (4.5-5.6)
[2021-03-04] MEDS: ASPIRIN 81 MG ECTAB PO SCH (09:03)
[2021-03-04] MEDS: ATORVASTATIN 40 MG TAB PO SCH (09:03)
[2021-03-04] MEDS: BRIMONIDINE TARTRATE 0.2% 5ML OPL SCH ×3 (09:04→20:40)
[2021-03-04] MEDS: carvediloL 3.125 MG TAB PO SCH ×2 (09:05→20:39)
[2021-03-04] MEDS: DORZOLAMIDE/TIMOLOL 22.3/6.8MG/ML 10 ML BTL OPL SCH ×2 (09:06→20:40)
[2021-03-04] MEDS: LOSARTAN POTASSIUM 25 MG TAB PO SCH (09:06)
[2021-03-04] MEDS: INSULIN ASPART 100 UNITS/ML 3 ML PEN SC SCH ×4 (09:17→20:39)
--- NOTE | 2021-03-04 10:24 | Cardiology Progress Note ---
Date of Service March 04, 2021 Assessment & Plan (1) CHF (congestive heart failure): (2) S/P cardiac pacemaker procedure: (3) Mitral regurgitation: (4) Aortic stenosis: (5) Atrial fibrillation: The patient is feeling much improved and wants to go home. I told him that we would keep him through today and have physical therapy ambulate him. If he does well then I think he can go home tomorrow. He is in persistent atrial fibrillation and I have started Eliquis with dose adjustment for age at 2.5 mg twice daily.The patient will need additional diuretics. He is currently on Lasix 20 mg every morning however when he returns home we may be able to limit it to Sunday and Sunday. Admission and Anticipated Discharge Date Admission Date: March 03, 2021 Subjective The patient feels much improved today. He is anxious to go home. Review of Systems Review of Systems: All systems reviewed & are unremarkable except as noted in Subjective Physical Exam Physical Exam: General: no acute distress and stated age Head: normocephalic, no masses, lesions, tenderness or abnormalities Eyes: conjunctiva are pink and non-injected, sclera clear Neck: supple, no adenopathy, no bruits, normal jugular venous pulse, no hepatojugular reflux Chest: normal shape and normal respiratory effort Lungs: clear to auscultation and percussion Cardiac Exam: - regular rate & rhythm, no murmurs gallops or rubs - normal S1, normal S2 Pulses: 2(+) throughout Abdomen: abdomen soft, non-tender, no abnormal masses and no hepatosplenomegaly Musculoskeletal: no gait disturbance, no joint inflammation, no deforming arthritis Extremities: no edema and no cyanosis Neuro: grossly normal exam Results & Data ([facility]) Vital Signs (Past 12 Hours) Vital Signs Temp Pulse Resp BP Pulse Ox 03/04/21 08:00 36.8 C 83 16 107/72 98 03/04/21 04:24 36.4 C L 62 16 155/67 H 93 03/03/21 22:58 36.7 C 63 20 121/62 92 Laboratory Results Laboratory Results - last 24 hr 03/03/21 03/03/21 03/03/21 09:44 09:44 11:30 WBC 8.79 RBC 3.71 L Hgb 11.4 L Hct 34.4 L MCV 92.7 MCH 30.7 MCHC 33.1 RDW Std Deviation 49.7 H RDW Coeff of [place] 14.7 H Plt Count 248 MPV 9.8 Immature Gran % (Auto) 0.2 Neut % (Auto) 74.2 Lymph % (Auto) 14.1 Webster % (Auto) 7.5 Eos % (Auto) 3.8 Baso % (Auto) 0.2 Neut # (Auto) 6.52 H Lymph # (Auto) 1.24 Webster # (Auto) 0.66 H Eos # (Auto) 0.33 Baso # (Auto) 0.02 Immature Gran # (Auto) 0.02 APTT PTT Ratio Sodium 142 Potassium 3.8 Chloride 111 H Carbon Dioxide 23 Anion Gap 8.0 BUN 21 H Creatinine 0.96 Est Cr Clr Drug Dosing 56.3 Est GFR ( Amer) 83.2 Est GFR (Non-Af Amer) 71.8 BUN/Creatinine Ratio 21.3 H Glucose 115 H POC Glucose Estimat Average Glucose Hemoglobin A1c Calcium 8.7 Phosphorus 3.6 Magnesium 2.1 Total Bilirubin 1.1 H Direct Bilirubin 0.3 H AST 8 L ALT 12 Alkaline Phosphatase 76 Troponin I 0.018 NT-Pro-B Natriuret Pep 9128 H Total Protein 7.0 Albumin 3.5 Globulin 3.5 Albumin/Globulin Ratio 1.0 Triglycerides Cholesterol LDL Cholesterol, Calc VLDL Cholesterol, Calc HDL Cholesterol Cholesterol/HDL Ratio Lipase 80 TSH COVID-19 Eval Order CovFluRsv at [facility] SARS-CoV-2 (PCR) Influenza Type A (PCR) Influenza Type B (PCR) RSV (RT-PCR) 03/03/21 03/03/21 03/03/21 11:30 16:03 16:33 WBC RBC Hgb Hct MCV MCH MCHC RDW Std Deviation RDW Coeff of [place] Plt Count MPV Immature Gran % (Auto) Neut % (Auto) Lymph % (Auto) Webster % (Auto) Eos % (Auto) Baso % (Auto) Neut # (Auto) Lymph # (Auto) Webster # (Auto) Eos # (Auto) Baso # (Auto) Immature Gran # (Auto) APTT PTT Ratio Sodium Potassium Chloride Carbon Dioxide Anion Gap BUN Creatinine Est Cr Clr Drug Dosing Est GFR ( Amer) Est GFR (Non-Af Amer) BUN/Creatinine Ratio Glucose POC Glucose 113 H Estimat Average Glucose Hemoglobin A1c Calcium Phosphorus Magnesium Total Bilirubin Direct Bilirubin AST ALT Alkaline Phosphatase Troponin I 0.020 NT-Pro-B Natriuret Pep Total Protein Albumin Globulin Albumin/Globulin Ratio Triglycerides Cholesterol LDL Cholesterol, Calc VLDL Cholesterol, Calc HDL Cholesterol Cholesterol/HDL Ratio Lipase TSH COVID-19 Eval Order SARS-CoV-2 (PCR) NEGATIVE Influenza Type A (PCR) Negative Influenza Type B (PCR) Negative RSV (RT-PCR) Negative 03/03/21 03/03/21 03/04/21 18:27 21:13 03:04 WBC 7.36 RBC 3.44 L Hgb 10.7 L Hct 31.2 L MCV 90.7 MCH 31.1 MCHC 34.3 RDW Std Deviation 48.5 H RDW Coeff of [place] 14.7 H Plt Count 222 MPV 9.5 Immature Gran % (Auto) Neut % (Auto) Lymph % (Auto) [place] % (Auto) Eos % (Auto) Baso % (Auto) Neut # (Auto) Lymph # (Auto) Webster # (Auto) Eos # (Auto) Baso # (Auto) Immature Gran # (Auto) APTT 26.3 PTT Ratio 1.0 Sodium Potassium Chloride Carbon Dioxide Anion Gap BUN Creatinine Est Cr Clr Drug Dosing Est GFR ( Amer) Est GFR (Non-Af Amer) BUN/Creatinine Ratio Glucose POC Glucose 129 H Estimat Average Glucose Hemoglobin A1c Calcium Phosphorus Magnesium Total Bilirubin Direct Bilirubin AST ALT Alkaline Phosphatase Troponin I NT-Pro-B Natriuret Pep Total Protein Albumin Globulin Albumin/Globulin Ratio Triglycerides Cholesterol LDL Cholesterol, Calc VLDL Cholesterol, Calc HDL Cholesterol Cholesterol/HDL Ratio Lipase TSH COVID-19 Eval Order SARS-CoV-2 (PCR) Influenza Type A (PCR) Influenza Type B (PCR) RSV (RT-PCR) 03/04/21 03/04/21 03/04/21 03:04 03:04 03:04 WBC RBC Hgb Hct MCV MCH MCHC RDW Std Deviation RDW Coeff of [place] Plt Count MPV Immature Gran % (Auto) Neut % (Auto) Lymph % (Auto) [place] % (Auto) Eos % (Auto) Baso % (Auto) Neut # (Auto) Lymph # (Auto) Webster # (Auto) Eos # (Auto) Baso # (Auto) Immature Gran # (Auto) APTT 75.7 H* PTT Ratio 2.9 Sodium 141 Potassium 3.6 Chloride 111 H Carbon Dioxide 24 Anion Gap 6.0 BUN 19 H Creatinine 0.84 Est Cr Clr Drug Dosing 59.7 Est GFR ( Amer) 92.5 Est GFR (Non-Af Amer) 79.8 BUN/Creatinine Ratio 23.2 H Glucose 128 H POC Glucose Estimat Average Glucose 131 Hemoglobin A1c 6.2 H Calcium 8.3 L Phosphorus 3.1 Magnesium 1.9 Total Bilirubin 1.1 H Direct Bilirubin AST 8 L ALT 11 L Alkaline Phosphatase 71 Troponin I 0.025 NT-Pro-B Natriuret Pep Total Protein 6.3 L Albumin 3.1 L Globulin 3.2 Albumin/Globulin Ratio 1.0 Triglycerides 67 Cholesterol 122 LDL Cholesterol, Calc 63 VLDL Cholesterol, Calc 13 HDL Cholesterol 46 Cholesterol/HDL Ratio 3 Lipase TSH 1.640 COVID-19 Eval Order SARS-CoV-2 (PCR) Influenza Type A (PCR) Influenza Type B (PCR) RSV (RT-PCR) 03/04/21 07:28 WBC RBC Hgb Hct MCV MCH MCHC RDW Std Deviation RDW Coeff of [place] Plt Count MPV Immature Gran % (Auto) Neut % (Auto) Lymph % (Auto) [place] % (Auto) Eos % (Auto) Baso % (Auto) Neut # (Auto) Lymph # (Auto) [place] # (Auto) Eos # (Auto) Baso # (Auto) Immature Gran # (Auto) APTT PTT Ratio Sodium Potassium Chloride Carbon Dioxide Anion Gap BUN Creatinine Est Cr Clr Drug Dosing Est GFR ( Amer) Est GFR (Non-Af Amer) BUN/Creatinine Ratio Glucose POC Glucose 142 H Estimat Average Glucose Hemoglobin A1c Calcium Phosphorus Magnesium Total Bilirubin Direct Bilirubin AST ALT Alkaline Phosphatase Troponin I NT-Pro-B Natriuret Pep Total Protein Albumin Globulin Albumin/Globulin Ratio Triglycerides Cholesterol LDL Cholesterol, Calc VLDL Cholesterol, Calc HDL Cholesterol Cholesterol/HDL Ratio Lipase TSH COVID-19 Eval Order SARS-CoV-2 (PCR) Influenza Type A (PCR) Influenza Type B (PCR) RSV (RT-PCR) Medications Administered Current Inpatient Medications Aspirin (Aspirin 81 Mg Ectab) [facility] Stop: 04/03/21 08:59 Last Admin: 03/04/21 09:03 Dose: 81 mg Documented by: Atorvastatin Calcium (Atorvastatin 40 Mg Tab) 40 [facility] Stop: 04/03/21 08:59 Last Admin: 03/04/21 09:03 Dose: 40 mg Documented by: Bimatoprost (Bimatoprost 0.01% Op Soln 2.5 Ml Btl) 1 drops OP HS [facility] Stop: 04/02/21 20:59 Last Admin: 03/03/21 21:16 Dose: 1 drops Documented by: Brimonidine Tartrate (Brimonidine Tartrate 0.2% 5ml) 1 drops OPL TID [facility] Stop: 04/02/21 14:36 Last Admin: 03/04/21 09:04 Dose: 1 drops Documented by: Carvedilol (Carvedilol 3.125 Mg Tab) 3.125 mg PO BID [facility] Stop: 04/02/21 12:44 Last Admin: 03/04/21 09:05 Dose: 3.125 mg Documented by: Dextrose (Dextrose 50% 50 Ml Syringe) 25 - 50 ml IV UD PRN; Protocol PRN Reason: Hypoglycemia Protocol Stop: 04/02/21 14:36 Dorzolamide/Timolol (Dorzolamide/Timolol 22.3/6.8mg/Ml 10 Ml Btl) 1 drops OPL BID [facility] Stop: 04/02/21 20:59 Last Admin: 03/04/21 09:06 Dose: 1 drops Documented by: Furosemide (Furosemide 20 Mg Tab) 20 mg PO QAM [facility] Stop: 04/03/21 10:29 Glucagon (Glucagon For Inj 1 Mg Vial) 1 mg SQ UD PRN; Protocol PRN Reason: Hypoglycemia Protocol Stop: 04/02/21 14:36 Glucose (Glucose 10 Tabs/Tube) 4 - 8 tabs PO UD PRN; Protocol PRN Reason: Hypoglycemia Protocol Stop: 04/02/21 14:36 Glucose (Glucose 40% Gel 15 Gm Tube) 15 - 30 gm PO UD PRN; Protocol PRN Reason: Hypoglycemia Protocol Stop: 04/02/21 14:36 Heparin Sodium/Dextrose (Heparin Sodium/Dextrose) 25,000 units in 500 mls @ 23 mls/hr IV .[id number] [facility]; Protocol Stop: 04/02/21 18:37 Last Titration: 03/04/21 04:00 Dose: 1,150 units/hr, 23 mls/hr Documented by: Insulin Aspart (Insulin Aspart 100 Units/Ml 3 Ml Pen) 0 units SC ACHS [facility] Stop: 04/02/21 16:29 Last Admin: 03/04/21 09:17 Dose: Not Given Documented by: Labetalol HCl (Labetalol Hcl Iv 5 Mg/Ml 20ml) 5 mg IV Q4H PRN PRN Reason: hypertension, SBP>165 Stop: 04/02/21 16:35 Losartan Potassium (Losartan Potassium 25 Mg Tab) 12.5 mg PO QAM [facility] Stop: 04/02/21 12:44 Last Admin: 03/04/21 09:06 Dose: 12.5 mg Documented by: Miscellaneous (Carbohydrates For Hypoglycemia ) 15 - 30 gm PO UD PRN PRN Reason: Hypoglycemia Protocol Stop: 04/02/21 14:36
[2021-03-04 11:11] LABS: Partial Thromboplastin Ratio 3.2
[2021-03-04 11:29] LABS: Partial Thromboplastin Time 84.7 Seconds (21.0-31.0)
[2021-03-04] MEDS: FUROSEMIDE 20 MG TAB PO SCH (11:33)
[2021-03-04] MEDS: APIXABAN 2.5 MG TAB PO SCH ×2 (11:33→20:39)
--- NOTE | 2021-03-04 18:14 | Hospitalist Progress Note ---
Date of Service March 04, 2021 Assessment & Plan (1) CHF (congestive heart failure): Chest pain Present on admission with chest pain Troponin x 3 negative ProBNP elevated 9128 EKG showed no acute ischemic changes Received IV lasix on admission CXR showed diffuse elevation of interstitium with small bilateral pleural effusions ECHO moderate concentric left biventricular hypertrophy with EF 50-55 % cardiology on board Continue Lasix 20mg PO daily for now Continue monitor I/O and fluid restriction at 1.5L daily Clinically improves significantly (2) Atrial fibrillation: EKG showed Afib on admission Rate control with carvedilol Pt was starting on IV heparin drip Heparin drip was discontinued then starting on Eliquis 2.5 mg BID (3) Cardiomyopathy: (4) CAD (coronary artery disease): Continue BB, statin, ARB, aspirin Troponinx3 negative Currently asymptomatic (5) S/P cardiac pacemaker procedure: - Follows with [facility] as an outpatient, was supposed to have pacemaker interrogation scheduled for March 22 this month, will perform now with new onset of shortness of breath and chest pain. (6) HTN (hypertension): BP fluctuated Continue carvedilol, losartan, Lasix (7) HLD (hyperlipidemia): Chol 122, LDL 63, HDL 46 and Trip 67 Continue statin (8) Aortic stenosis: Stable (9) Diabetes mellitus, type II: Most recent hba1c 6.2 on 03/04 Continue to hold metformin during the hospital course Continue insulin with novolog sliding scale (10) DVT prophylaxis: Heparin drip was d/c Eliquis 2.5 mg BID CODE: DNR/DNI Dispo: Plan to discharge home tomorrow Admission and Anticipated Discharge Date Admission Date: March 03, 2021 Subjective Pt was seen and examined for follow up of chest pain Lying in bed with no distress Pt said that he feels fine Denies any chest pain, palpitation, dizziness and SOB Review of Systems Review of Systems: All systems reviewed & are unremarkable except as noted in Subjective Physical Exam Physical Exam: General- No acute distress Head- atraumatic Eyes- PERRL, EOMI, ENT- oropharynx clear Neck- supple, no JVD Lungs- clear to auscultation Heart- irregular rhythm; +murmur Abdomen- normal bowel sounds, soft, nontender Extremities- no calf tenderness Neuro- alert, oriented x 3; PERRL, EOMI; no facial palsy; no dysarthria Skin- warm & dry Results & Data Results & [facility] ([facility]) Vital Signs (Past 12 Hours) Vital Signs Temp Pulse Pulse Pulse Resp BP Pulse Ox 03/04/21 16:00 36.8 C 60 16 151/62 H 95 03/04/21 15:30 36.8 C 76 18 140/72 95 03/04/21 15:00 60 03/04/21 11:00 36.9 C 60 16 158/64 H 93 03/04/21 08:00 36.8 C 83 16 107/72 98 (1) CHF (congestive heart failure) Heart failure type: other Qualified Code(s): I50.9 - Heart failure, unspecified
[2021-03-04] MEDS: BIMATOPROST 0.01% OP SOLN 2.5 ML BTL OP SCH (20:40)
[2021-03-05 06:14] LABS: Basophils # (auto) 0.01 K/uL (0-0.2); Basophils % (auto) 0.1 %; Eosinophils # (auto) 0.15 K/uL (0-0.5); Eosinophils % (auto) 1.7 %; Hematocrit (blood only) 32.9 % (42-52); Immature Granulocytes # (auto) 0.03 K/uL (0.00-0.02); Immature Granulocytes % (auto) 0.3 %; Lymphocytes # (auto) 0.99 K/uL (1.2-3.4); Lymphocytes % (auto) 11.4 %; Mean Corpuscular Hemoglobin 30.5 pg (25-34); Mean Corpuscular Hgb Conc 33.4 g/dL (32-36); Mean Corpuscular Volume 91.1 fL (80-100); Mean Platelet Volume 9.7 fL (7.4-10.4); Monocytes # (auto) 0.66 K/uL (0.11-0.59); Monocytes % (auto) 7.6 %; Neutrophils # (auto) 6.81 K/uL (1.4-6.5); Neutrophils % (auto) 78.9 %; Platelet Count 230 K/uL (130-400); RDW Coefficient of Variation 14.7 % (11.5-14.5); RDW Standard Deviation 49.2 fL (36.4-46.3); Red Blood Count 3.61 M/uL (4.7-6.1); White Blood Count 8.65 K/uL (4.8-10.8)
[2021-03-05 06:27] LABS: Partial Thromboplastin Ratio 1.1
[2021-03-05 06:42] LABS: Albumin Level 3.2 gm/dl (3.4-5.0); BUN Creatinine Ratio 24.4 (10-20); Calcium 8.5 mg/dl (8.5-10.1); Creatinine Clr Calc Pharmacy 64.3 ml/min; Est GFR (African American) 92.5; Est GFR (Non-African American) 79.8; Potassium 3.6 mmol/L (3.5-5.1)
[2021-03-05 06:45] LABS: Bilirubin,Total 1.3 mg/dl (0.2-1); Globulin 3.2 gm/dl (2.5-4.0); Total Protein 6.4 gm/dl (6.4-8.2)
[2021-03-05] MEDS: carvediloL 3.125 MG TAB PO SCH (08:27)
[2021-03-05] MEDS: LOSARTAN POTASSIUM 25 MG TAB PO SCH (08:27)
[2021-03-05] MEDS: FUROSEMIDE 20 MG TAB PO SCH (08:27)
[2021-03-05] MEDS: APIXABAN 2.5 MG TAB PO SCH (08:28)
[2021-03-05] MEDS: BRIMONIDINE TARTRATE 0.2% 5ML OPL SCH ×2 (08:28→12:27)
[2021-03-05] MEDS: DORZOLAMIDE/TIMOLOL 22.3/6.8MG/ML 10 ML BTL OPL SCH (08:28)
[2021-03-05] MEDS: ATORVASTATIN 40 MG TAB PO SCH (08:28)
[2021-03-05] MEDS: ASPIRIN 81 MG ECTAB PO SCH (08:28)
[2021-03-05] MEDS: INSULIN ASPART 100 UNITS/ML 3 ML PEN SC SCH ×2 (09:29→12:23)
[2021-03-05] MEDS ORDERED: LOSARTAN POTASSIUM 25 MG TAB PO ONE (09:45)
--- NOTE | 2021-03-05 10:30 | Cardiology Progress Note ---
Date of Service March 05, 2021 Assessment & Plan (1) CHF (congestive heart failure): (2) S/P cardiac pacemaker procedure: (3) Mitral regurgitation: (4) Aortic stenosis: (5) Atrial fibrillation: The patient is feeling much improved. Eliquis 2.5 mg BID started for stroke prophylaxis. BP still high, however, losartan recently added. Continue coreg 3.125 mg BID. I think that given pt's age, frailty, and risk of orthostatic hypotension given moderate , it is OK to permit some degree of HTN, perhaps goal SBP of under 160 mmHg. Repeat BP at 11:25 after am medication was 136/69 mm Hg. Discharge on furosemide 20 mg on Mondays, Sun, Fridays. . Admission and Anticipated Discharge Date Admission Date: March 03, 2021 Subjective Patient feels well. No chest pain, no SOB. Review of Systems Review of Systems: All systems reviewed & are unremarkable except as noted in HPI & below Physical Exam Physical Exam: Temp Pulse Resp BP Pulse Ox 36.3 C L 60 18 180/67 H 91 03/05/21 07:58 03/05/21 07:58 03/05/21 07:58 03/05/21 07:58 03/05/21 07:58 Constitutional: WD/WN, vitals as above Respiratory: mildl decreased BS at the bases Cardiovascular: Rate/Rhythm: regular rhythm Heart Sounds: + murmur (2/6 SM) Gastrointestinal (Abdomen): normal bowel sounds, soft, nontender, no hepatosplenomegaly Neurologic: PERRL, EOMI, accommodation nl, no face palsy, no dysarthria Results & Data ([facility]) Vital Signs (Past 12 Hours) Vital Signs Temp Pulse Pulse Resp BP Pulse Ox 03/05/21 07:58 36.3 C L 60 18 180/67 H 91 03/05/21 04:00 36.3 C L 60 18 160/76 H 93 03/04/21 23:36 36.5 C 60 18 161/72 H 94 Laboratory Results Cardiac Enzymes 03/05/21 Range/Units 05:48 AST 7 L (15-37) U/L Coagulation 03/04/21 03/05/21 Range/Units 10:19 05:48 APTT 84.7 H* 30.0 (21.0-31.0) Seconds CBC 03/05/21 Range/Units 05:48 WBC 8.65 (4.8-10.8) K/uL RBC 3.61 L (4.7-6.1) M/uL Hgb 11.0 L (14.0-18.0) g/dL Hct 32.9 L (42-52) % Plt Count 230 (130-400) K/uL Neut # (Auto) 6.81 H (1.4-6.5) K/uL Lymph # (Auto) 0.99 L (1.2-3.4) K/uL Coleman # (Auto) 0.66 H (0.11-0.59) K/uL Eos # (Auto) 0.15 (0-0.5) K/uL Baso # (Auto) 0.01 (0-0.2) K/uL Comprehensive Metabolic Panel 03/05/21 Range/Units 05:48 Sodium 141 (136-145) mmol/L Potassium 3.6 (3.5-5.1) mmol/L Chloride 110 H (98-107) mmol/L Carbon Dioxide 23 (21-32) mmol/L BUN 20 H (7-18) mg/dl Creatinine 0.84 (0.6-1.4) mg/dl Glucose 122 H (70-99) mg/dl Calcium 8.5 (8.5-10.1) mg/dl AST 7 L (15-37) U/L ALT 10 L (12-78) U/L Alkaline Phosphatase 71 (45-117) U/L Total Protein 6.4 (6.4-8.2) gm/dl Albumin 3.2 L (3.4-5.0) gm/dl Intake and Output 03/04/21 03/05/21 03/05/21 22:59 06:59 14:59 Intake Total 200 / 720 Output Total 100 / 925 200 / 925 Balance -100 / -205 0 Intake: Oral 200 / 720 Output: Urine 100 / 925 200 / 925 Other: # Unmeasured Voids 1 Weight 76 kg Weight Measurement Method Built in [facility] Diagnostic Findings EKG 03/03/21: AF occasional Ventricular pacing Echo this admission: LVEF 50-55% Moderate AR Moderate Moderate MR
[2021-03-05] MEDS ORDERED: carvediloL 3.125 MG TAB PO STA (10:39)
--- NOTE | 2021-03-05 13:15 | Hospitalist Progress Note ---
Date of Service March 05, 2021 Assessment & Plan (1) CHF (congestive heart failure): Chest pain Acute on Chronic systolic CHF Present on admission with chest pain Troponin x 3 negative ProBNP elevated 9128 EKG showed no acute ischemic changes Received IV lasix on admission CXR showed diffuse elevation of interstitium with small bilateral pleural effusions ECHO moderate concentric left biventricular hypertrophy with EF 50-55 % cardiology on board Currently on Lasix 20mg PO Case discussed with cardiology that recommended to discharge on Lasix 20mg on Mon, Wed, Fri Clinically improves significantly Ok from cardiology standpoint to discharge home (2) Atrial fibrillation: EKG showed Afib on admission Rate control with carvedilol Pt was starting on IV heparin drip Heparin drip was discontinued then starting on Eliquis 2.5 mg BID Continue eliquis 2.5 mg BID for stroke prophylaxis. (3) Cardiomyopathy: (4) CAD (coronary artery disease): Continue BB, statin, ARB, aspirin Troponinx3 negative Currently asymptomatic (5) S/P cardiac pacemaker procedure: - Follows with [facility] as an outpatient, was supposed to have pacemaker interrogation scheduled for March 22 this month, will perform now with new onset of shortness of breath and chest pain. (6) HTN (hypertension): BP fluctuated Continue carvedilol, Lasix Losartan increased to 25mg daily (7) HLD (hyperlipidemia): Chol 122, LDL 63, HDL 46 and Trip 67 Continue statin (8) Aortic stenosis: Stable (9) Diabetes mellitus, type II: Most recent hba1c 6.2 on 03/04 Continue to hold metformin during the hospital course Continue insulin with novolog sliding scale Will resume PO diabetes meds on discharge (10) DVT prophylaxis: Heparin drip was d/c Eliquis 2.5 mg BID CODE: DNR/DNI Dispo: Plan to discharge home today Admission and Anticipated Discharge Date Admission Date: March 03, 2021 Subjective Pt was seen and examined for follow up of elevate blood pressure Sitting in chair with no distress comfortable Pt said that he feels at his best today Denies any chest pain, palpitation, dizziness and SOB Review of Systems Review of Systems: All systems reviewed & are unremarkable except as noted in Subjective Physical Exam Physical Exam: General- No acute distress Head- atraumatic Eyes- PERRL, EOMI, ENT- oropharynx clear Neck- supple, no JVD Lungs- clear to auscultation Heart- irregular rhythm; +murmur Abdomen- normal bowel sounds, soft, nontender Extremities- no calf tenderness Neuro- alert, oriented x 3; PERRL, EOMI; no facial palsy; no dysarthria Skin- warm & dry Results & Data Results & Data ([facility]) Vital Signs (Past 12 Hours) Vital Signs Temp Pulse Pulse Resp BP BP Pulse Ox 03/05/21 11:25 36.6 C 59 L 20 136/69 97 03/05/21 07:58 36.3 C L 60 18 180/67 H 91 03/05/21 04:00 36.3 C L 60 18 160/76 H 93 (1) CHF (congestive heart failure) Heart failure type: other Qualified Code(s): I50.9 - Heart failure, unspecified
[2021-03-05] MEDS ORDERED: carvediloL 3.125 MG TAB PO SCH (21:00)
[2021-03-05] MEDS ORDERED: carvediloL 6.25 MG TAB PO SCH (21:00)
[2021-03-06] MEDS ORDERED: LOSARTAN POTASSIUM 25 MG TAB PO SCH (09:00)
--- NOTE | 2021-03-07 07:51 | Discharge Summary ---
Date of Service March 05, 2021 Admission HPI Per Admitting Provider This is an 86 yo M with PMHx of CAD s/p bypass in 2007, moderately severe bilateral internal carotid arter disease, HTN, HLD, chronic systolic CHF with EF of 40-55%, aortic stenosis, cardiac pacemaker in situ, DM II, CKD stage III who presents with acute onset of chest pain. Mr. Padilla was recently evaluated at [facility] on 02/04/2021 after experiencing a fall preceded by dizziness, lightheadedness with positional change. He admits to intermittent episodes of dizziness followed by lightheadedness always with positional change. During his visit there Lasix was reduced from 40 mg to 20 mg/day. Losartan was reduced from 25 to 12.5 mg daily. Since then he reports his blood pressure has been checked daily by an automatic cuff at home and is either normal to slightly high. He is unsure about changes in symptoms since change of medication was made. This morning he developed onset of shortness of breath with chest heaviness and pressure which lasted for approximately 15 minutes. Shortness of breath came on at rest. Says that he often has chest pain several times a day, however this one was different than usual. He had not taken any of his morning medications yet. His brother in law took him to an urgent care clinic. There, they gave him 324 mg of aspirin and sent him to the ER. He denies any current chest pain, heaviness, palpitations, pressure, shortness of breath and reports that he would ultimately like to go home. He is agreeable to admission with his brother in law here at bedside to support the history. He has not yet eaten anything today and is hungry. Denies any nausea, abdominal pain, diarrhea or constipation. No recent falls. Admission Exam Per Admitting Provider General: awake, alert, no apparent distress Head: Normocephalic, atraumatic ENT: + right eye strabismus, nonreactive to light, + blindness R eye, Left reactive to light, no pharyngeal exudate, mucous membranes moist Chest: + faint crackles in the LLL, nearly absent at bases bilaterally, on RA with o2 sats 96% Cardiac: Irregularly irregular, rate controlled, + pacer, + loud systolic murmur, no JVD, normal peripheral pulses, good capillary refill Abdominal: NABS x 4 quadrants, soft, nondistended, nontender to palpation, no rebound or guarding Extremities: Normal inspection, no peripheral edema or erythema, calfs nontender to palpation Psych: Normal mood and affect Neuro: AAO x 3, strength intact bilaterally and rated 5/5, no motor deficits, speech is clear, no peripheral sensory deficits Principal Diagnosis CHF (congestive heart failure): Chest pain Atrial fibrillation: Cardiomyopathy: CAD (coronary artery disease): HTN (hypertension):+ Discharge Exam General- No acute distress Head- atraumatic Eyes- PERRL, EOMI, ENT- oropharynx clear Neck- supple, no JVD Lungs- clear to auscultation Heart- irregular rhythm; +murmur Abdomen- normal bowel sounds, soft, nontender Extremities- no calf tenderness Neuro- alert, oriented x 3; PERRL, EOMI; no facial palsy; no dysarthria Skin- warm & dry Discharge Data Allergies Allergy/AdvReac Type Severity Reaction Status Date / Time No Known Allergies Allergy Unverified 02/04/21 13:49 Consultations 03/03/21 11:22 ED Decision to Admit Stat 03/03/21 12:38 Consult Cardiology Routine Ordered Studies XR chest 1V portable CLINICAL HISTORY: Atypical chest pain COMPARISON STUDY: 02/04/2021 FINDINGS: The heart is borderline enlarged. There are postsurgical changes of a midline sternotomy. There is a left subclavian dual-chamber central venous pacemaker. There is diffuse elevation of interstitium. There are trace pleural effusions. The findings likely represent congestive failure/fluid overload although an interstitial infectious/inflammatory process could appear similar.[ IMPRESSION: 1. Diffuse elevation of interstitium with small bilateral pleural effusions. The findings likely represent congestive failure/fluid overload. Clinical and radiographic follow-up are recommended. ACT 112: Negative or not required by law. Electronically signed by: Vincent Calderon M.D. 03/03/2021 10:57 AM Dictated: 03/03/21 1056Transcribed: 03/03/21 1056 Hospital Course (1) CHF (congestive heart failure): Chest pain Acute on Chronic systolic CHF Present on admission with chest pain Troponin x 3 negative ProBNP elevated 9128 EKG showed no acute ischemic changes Received IV lasix on admission CXR showed diffuse elevation of interstitium with small bilateral pleural effusions ECHO moderate concentric left biventricular hypertrophy with EF 50-55 % cardiology on board Currently on Lasix 20mg PO Case discussed with cardiology that recommended to discharge on Lasix 20mg on Mon, Wed, Fri Clinically improves significantly Ok from cardiology standpoint to discharge home (2) Atrial fibrillation: EKG showed Afib on admission Rate control with carvedilol Pt was starting on IV heparin drip Heparin drip was discontinued then starting on Eliquis 2.5 mg BID Continue eliquis 2.5 mg BID for stroke prophylaxis. (3) Cardiomyopathy: - Checking echo, as above (4) CAD (coronary artery disease): Continue BB, statin, ARB, aspirin Troponinx3 negative Currently asymptomatic (5) S/P cardiac pacemaker procedure: - Follows with [facility] as an outpatient, was supposed to have pacemaker interrogation scheduled for March 22 this month, will perform now with new onset of shortness of breath and chest pain. (6) HTN (hypertension): BP fluctuated Continue carvedilol, Lasix Losartan increased to 25mg daily (7) HLD (hyperlipidemia): Chol 122, LDL 63, HDL 46 and Trip 67 Continue statin (8) Aortic stenosis: Stable (9) Diabetes mellitus, type II: Most recent hba1c 6.2 on 03/04 Continue to hold metformin during the hospital course Continue insulin with novolog sliding scale Will resume PO diabetes meds on discharge (10) DVT prophylaxis: Heparin drip was d/c Eliquis 2.5 mg BID CODE: DNR/DNI Dispo: Plan to discharge home today Total Time Total Time Spent Total Time Spent (In Minutes): 35 minutes Total Time Includes: Examination of the Patient, Discharge Planning, Medication Reconciliation, Communication With Other Providers and Other Discharge Plan Discharge Items Patient Disposition: Home - Home Health Services Reason For Visit: CHEST PAIN Discharge Diagnosis: CHF (congestive heart failure): Chest pain Atrial fibrillation: Cardiomyopathy: CAD (coronary artery disease): HTN (hypertension):+ Activity: Resume your previous activity Non-emergency contact: Primary Care Provider and Composition Molder Call non-emergency contact if: you have any medication questions Follow-up/Referrals: Jaelyn Pemberton MD [Primary Care Provider] - (Date & Time 03/11/2021 12:00 PM Provider Jaelyn Haney MD Department Family Medicine [facility] ) Diet: Carb Consistent or DM2 and Heart Healthy Addtl Attending Provider Instructions: Follow up with your primary care provider Dr. Andujar on 03/11/2021 at 12:00 PM at the [facility] Follow up with your cardiology Continue physical and occupation therapy with home health services Continue monitor your blood pressure and bring your blood pressure log at your next appointment with your provider Fall precaution Monitor for any abnormal bleeding while on Eliquis If you develop any bleeding, please notify your provider or seek medical attention Medication Instructions: Eliquis Your condition is typically treated with an anticoagulant. Anticoagulants will thin your blood to help prevent stroke You should take her medication exactly as directed. Never skip a dose. Never take a double dose. If you miss a dose, take it as soon as you remember. Avoid NSAIDs (Motrin, Aleve, Naproxen, Ibuprofen, Advil, Meloxicam,..) due to risks of bleeding Call your Primary Care doctor if you experience any of the following: Swelling or Pain in your leg Sudden, continuous pain deep in a muscle Pain that worsens when you are active or when you stand still for a long time Chest Pain Sudden Shortness of Breath Rapid or pounding heart beat Fainting Dizziness Cough with blood or bloody sputum Sweating more than normal Bruises Heavy or uncontrolled bleeding Blood in your urine, stool or vomit Black or tarry stools Pending Studies at Discharge: No Stand-Alone Forms: [facility], Smoking Cessation Medications and DC Order Prescriptions: New Eliquis 2.5 mg Tablet 2.5 mg PO BID 30 Days Qty: 60 RF: 0 furosemide 20 mg Tablet 20 mg PO 3XWK Qty: 30 RF: 0 Continued metformin 500 mg Tablet 500 mg PO BIDM RF: 0 atorvastatin 20 mg Tablet 40 mg PO QAM RF: 0 aspirin 81 mg Tablet,Delayed Release (Dr/Ec) 81 mg PO QAM RF: 0 dorzolamide-timolol 22.3-6.8 mg/mL Drops 1 drp OPL BID RF: 0 Lumigan 0.01 % Drops 1 drp OPB HS RF: 0 brimonidine 0.2 % drops 1 drp OPL TID RF: 0 cyanocobalamin (vitamin B-12) 1,000 mcg tablet 1,000 mcg PO QAM RF: 0 carvedilol 3.125 mg tablet 3.125 mg PO BID RF: 0 Changed losartan 25 mg Tablet 25 mg PO QAM Qty: 30 RF: 0 Discontinued furosemide 40 mg tablet 20 mg PO QAM RF: 0 aspirin 81 mg Tablet,Chewable 324 mg PO ONCE RF: 0 Discharge Orders: Discharge Order (Routine); Ordered 03/05/21 Ordered By: Emma Jay/Other Patient Handouts: High Blood Sugar (Hyperglycemia), Hypoglycemia (Low Blood Sugar), Managing Type 2 Diabetes, Managing Diabetes: The A1C Test Admission Data Admit Date/Time: 03/03/21 16:20 Attending Provider: Emma Robles Admit Provider: Alfredo Burnett Primary Care Provider: Jaelyn Pemberton Other Providers: Shorty Rich ; Alfredo Burnett ; Asfa Mccarthy [facility] Other Interventions: Discharge Summary Assessment (RN) Last Done: 03/05/21 13:35
== END 2021-03-05 15:27 | disposition home health service (06) | DRG 291 ==
LOC: 2S 10:13 → ED 10:13 → 2S 13:59 → SUATTDRO 16:20

== ENCOUNTER 2021-03-09 09:48 | Inpatient (IN) ==
[2021-03-09 11:42] LABS: Basophils # (auto) 0.05 K/uL (0-0.2); Basophils % (auto) 0.7 %; Eosinophils # (auto) 0.21 K/uL (0-0.5); Eosinophils % (auto) 2.8 %; Hematocrit (blood only) 33.6 % (42-52); Hemoglobin 11.1 g/dL (14.0-18.0); Immature Granulocytes # (auto) 0.02 K/uL (0.00-0.02); Immature Granulocytes % (auto) 0.3 %; Lymphocytes % (auto) 17.4 %; Mean Corpuscular Hemoglobin 30.9 pg (25-34); Mean Corpuscular Volume 93.6 fL (80-100); Mean Platelet Volume 9.7 fL (7.4-10.4); Monocytes # (auto) 0.53 K/uL (0.11-0.59); Monocytes % (auto) 7.1 %; Neutrophils # (auto) 5.36 K/uL (1.4-6.5); Neutrophils % (auto) 71.7 %; Platelet Count 306 K/uL (130-400); RDW Coefficient of Variation 15.2 % (11.5-14.5); RDW Standard Deviation 51.7 fL (36.4-46.3); Red Blood Count 3.59 M/uL (4.7-6.1); White Blood Count 7.47 K/uL (4.8-10.8)
--- NOTE | 2021-03-09 11:46 | XRay Report ---
XR chest 1V portable HISTORY: 86 years-old Male Chest Pain acute atypical chest pain COMPARISON: Chest radiograph 03/03/2021 TECHNIQUE: Portable AP view of the chest FINDINGS: Cardiac silhouette is enlarged. Prior median sternotomy with CABG. Left subclavian pacer. No pneumoth orax. Small pleural effusions. Pulmonary vascular congestion with interstitial coarsening, progressed from comparison. Degenerative changes of the shoulders and spine. Round radiodensity is again noted projecting over the abdominal right upper quadrant measuring up to approximately 3.5 cm, possibly a c alcified gallstone. Degenerative changes of the shoulders and spine. IMPRESSION: 1. Cardiomegaly with progressive pulmonary edema. 2. Small pleural effusions. ACT 112: Negative or not required by law. The above report was generated using voice recognition software. It may contain grammatical, syntax o r spelling errors. Electronically signed by: Bon Alfonso M.D. 03/09/2021 11:45 AM
[2021-03-09 12:03] LABS: Alanine Aminotransferase 11 U/L (12-78); Albumin Level 3.5 gm/dl (3.4-5.0); Aspartate Aminotransferase 11 U/L (15-37); BUN Creatinine Ratio 23.6 (10-20); Blood Urea Nitrogen 26 mg/dl (7-18); Calcium 9.1 mg/dl (8.5-10.1); Carbon Dioxide 23 mmol/L (21-32); Chloride 112 mmol/L (98-107); Creatinine Clr Calc Pharmacy 49.1 ml/min; Est GFR (African American) 70.6; Est GFR (Non-African American) 60.9; Glucose 118 mg/dl (70-99); Lipase 119 U/L (73-393); Sodium 142 mmol/L (136-145)
[2021-03-09 12:08] LABS: Alkaline Phosphatase 70 U/L (45-117); Bilirubin,Total 1.1 mg/dl (0.2-1); Creatine Kinase 69 U/L (39-308); Creatine Kinase MB < 1.0 ng/ml (0.5-3.6); Globulin 3.5 gm/dl (2.5-4.0); NT Pro B Type Natriuretic Pept 12193 pg/ml (0-1800); Troponin I 0.023 ng/ml (0-0.045)
[2021-03-09] MEDS ORDERED: FUROSEMIDE 40 MG/4 ML VIAL IV STA (12:09)
--- NOTE | 2021-03-09 12:53 | History & Physical Report ---
Date of Service March 09, 2021 Assessment & Plan (1) Chest pain: (2) CHF (congestive heart failure): - Admit to [facility] for chest pain - Trend cardiac biomarkers, initial set 0.023 - EKG reviewed as above - Last echo done on 03/03/21 and showed moderate LVH, EF of 50 to 55%, moderate aortic regurg, moderate aortic stenosis, moderate mitral regurg, moderate pulmonary hypertension with estimated pulmonary artery pressure of 35 mmHg. - Limited echo today. - Cardiology consulted - appreciate recommendations - [place] [address] now (was 9000 upon last admit), CXR reviewed showing bilateral small pleural effusions, sob as per HPI. Has progressive pulmonary edema compared to last weeks imaging. - Lasix 40 mg IV given in ED with outs of 200 mL so far. - Was discharged last week on lasix 20 mg Mon, Wed, Sun - prior to this was on 40 mg daily. - Weighs himself twice weekly and is 162-164 lbs at baseline. - Daily weights, strict I/Os, fluid restriction of 1500mL - PT/OT consulted - COVID neg (3) CAD (coronary artery disease): - coronary artery bypass surgery in 2008 in [place]. He also received a [employer] pacemaker in 2017 in [place]. - hx of moderate- severe bilateral internal carotid artery disease - Continue BB, statin, ARB, aspirin - Started on Eliquis 2.5 mg BID for stroke prophylaxis last week during previous admission. 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 (10) DVT prophylaxis: - teds, eliquis as above CODE: DNR/DNI Dispo: From home, likely to remain in the hospital x 2 days History of Present Illness Primary Care Provider: Jaelyn Haney MD This is an 86 yo M with PMHx of CAD s/p bypass in 2007, moderately severe bilateral internal carotid arter disease, HTN, HLD, chronic systolic CHF with EF of 40-55%, aortic stenosis, cardiac pacemaker in situ, DM II, CKD stage III who presents with acute onset of chest pain. Mr. Padilla was recently evaluated at [facility] on 02/04/2021 after experiencing a fall preceded by dizziness, lightheadedness with positional change. He admits to intermittent episodes of dizziness followed by lightheadedness always with positional change. During his visit there Lasix was reduced from 40 mg to 20 mg/day. Losartan was reduced from 25 to 12.5 mg daily. Since then he reports his blood pressure has been checked daily by an automatic cuff at home and is either normal to slightly high. He is unsure about changes in symptoms since change of medication was made. He was readmitted last week on 03/03/21- 03/05/21 for chest heaviness and pressure. He was evaluated by cardiology and diuresed with improvement in his symptoms. Pt represents today for acute onset of chest pain/heaviness/pressure with diaphoresis and associated shortness of breath upon waking up and getting himself around this morning. This lasted for a few minutes, and improved with rest. Denies palpitations, flutter, radiation of pain, headache, nausea, or vomiting. Denies orthopnea. He reports no worsening breathing since change of lasix dosing to MWF last week, no swelling in legs or stomach. He did not eat anything this morning, but was able to take his morning medications. Pt called his neighbor who then called an ambulance for him. His brother in law is present at bedside. Here pt is found to have increased pulmonary edema on CXR and was given Lasix 40 mg IV in the ER. His case was discussed with cardiology, and was recommended he be admitted and be actively diuresed. BNP and troponin are elevated compared to last week. Allergies Allergy/AdvReac Type Severity Reaction Status Date / Time No Known Allergies Allergy Unverified 02/04/21 13:49 Home Medications Medication Instructions Recorded Confirmed Type Luligan 1 drp OPB HS 12/31/19 03/09/21 History aspirin 81 mg PO QAM 12/31/19 03/09/21 History atorvastatin 40 mg PO QAM 12/31/19 03/09/21 History brimonidine 1 drp OPL TID 12/31/19 03/09/21 History dorzolamide-timolol 1 drp OPL BID 12/31/19 03/09/21 History metformin 500 mg PO BIDM 12/31/19 03/09/21 History carvedilol 3.125 mg PO BID 02/04/21 03/09/21 History cyanocobalamin (vitamin B-12) 1,000 mcg PO QAM 02/04/21 03/09/21 History apixaban [Eliquis] 2.5 mg PO BID 30 Days #60 tab 03/05/21 03/09/21 Rx furosemide 20 mg PO 3XWK #30 tab 03/05/21 03/09/21 Rx losartan 25 mg PO QAM #30 tab 03/05/21 03/09/21 Rx Past Med/Surg History Medical History (Updated 03/03/21 @ 14:24 by Shorty Rich DO) Aortic stenosis Bradycardia CAD (coronary artery disease) Diabetes Diabetes mellitus, type II Dizziness HLD (hyperlipidemia) HTN (hypertension) Mitral regurgitation Neuropathy Surgical History 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 S/P cardiac pacemaker procedure Family History Mother Heart disease Father Prostate cancer Social History Smoking Status: Former smoker Tobacco Type: Pipe Second Hand Exposure: No; Hx Alcohol Use: No Hx Substance Use: No Preferred Language: Turkish Communication Ability: Effective Security Strategist Required: No Beliefs That Will Affect Care: None marital status: Unknown Current Living Situation: Personal Care Facility How many Children do You have: 2 Other Information That Helps Us Care for You: No Feels Safe at Home: Yes Safety Concerns: Feels Safe At This Time Assistive Devices: Walker Review of Systems Review of Systems: Constitutional: No fever, sweats or chills Eyes: No diplopia, no worsening or blurred vision ENT: normal hearing, no trouble swallowing Respiratory:As per HPI. No cough, sputum, dyspnea at rest or on exertion Cardiovascular: As per HPI. 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 Left eye reactive to light with intact EOM. no pharyngeal exudate, mucous membranes moist Chest: Diminished breath sounds at bases bilaterally, on room air, no rales, crackles or wheeze. Cardiac: Regular rate and rhythm, + systolic murmur grade 3/6, no JVD, normal peripheral pulses, good capillary refill Abdominal: NABS x 4 quadrants, soft, nondistended, nontender to palpation, no rebound or guarding Extremities: Normal inspection, right leg with 1+ pitting peripheral edema, left leg without edema, no erythema, calfs nontender to palpation Psych: Normal mood and affect Neuro: AAO x 3, strength intact bilaterally and rated 5/5, no motor deficits, speech is clear, no peripheral sensory deficits Results & Data Results & Data ([facility]) Vital Signs (Past 12 Hours) Vital Signs Temp Pulse Pulse Resp BP BP Pulse Ox 03/09/21 11:50 60 17 182/69 H 95 03/09/21 09:55 37.3 C 60 16 172/63 H 93 Laboratory Results Labs 03/09/21 03/09/21 03/09/21 11:30 11:30 12:35 WBC 7.47 RBC 3.59 L Hgb 11.1 L Hct 33.6 L MCV 93.6 MCH 30.9 MCHC 33.0 RDW Std Deviation 51.7 H RDW Coeff of [place] 15.2 H Plt Count 306 MPV 9.7 Immature Gran % (Auto) 0.3 Neut % (Auto) 71.7 Lymph % (Auto) 17.4 [place] % (Auto) 7.1 Eos % (Auto) 2.8 Baso % (Auto) 0.7 Neut # (Auto) 5.36 Lymph # (Auto) 1.30 [place] # (Auto) 0.53 Eos # (Auto) 0.21 Baso # (Auto) 0.05 Immature Gran # (Auto) 0.02 Sodium 142 Potassium 4.0 Chloride 112 H Carbon Dioxide 23 Anion Gap 7.0 BUN 26 H Creatinine 1.10 Est Cr Clr Drug Dosing 49.1 Est GFR ( Amer) 70.6 Est GFR (Non-Af Amer) 60.9 BUN/Creatinine Ratio 23.6 H Glucose 118 H Calcium 9.1 Total Bilirubin 1.1 H AST 11 L ALT 11 L Alkaline Phosphatase 70 Total Creatine Kinase 69 CK-MB (CK-2) < 1.0 CK/CKMB % Calc TNP Troponin I 0.023 NT-Pro-B Natriuret Pep 80690 H Total Protein 7.0 Albumin 3.5 Globulin 3.5 Albumin/Globulin Ratio 1.0 Lipase 119 COVID-19 Eval Order CovFluRsv at [facility] SARS-CoV-2 (PCR) Influenza Type A (PCR) Influenza Type B (PCR) RSV (RT-PCR) 03/09/21 12:35 WBC RBC Hgb Hct MCV MCH MCHC RDW Std Deviation RDW Coeff of [place] Plt Count MPV Immature Gran % (Auto) Neut % (Auto) Lymph % (Auto) [place] % (Auto) Eos % (Auto) Baso % (Auto) Neut # (Auto) Lymph # (Auto) [place] # (Auto) Eos # (Auto) Baso # (Auto) Immature Gran # (Auto) Sodium Potassium Chloride Carbon Dioxide Anion Gap BUN Creatinine Est Cr Clr Drug Dosing Est GFR ( Amer) Est GFR (Non-Af Amer) BUN/Creatinine Ratio Glucose Calcium Total Bilirubin AST ALT Alkaline Phosphatase Total Creatine Kinase CK-MB (CK-2) CK/CKMB % Calc Troponin I NT-Pro-B Natriuret Pep Total Protein Albumin Globulin Albumin/Globulin Ratio Lipase COVID-19 Eval Order SARS-CoV-2 (PCR) NEGATIVE Influenza Type A (PCR) Negative Influenza Type B (PCR) Negative RSV (RT-PCR) Negative Diagnostic Findings Chest X-Ray 03/09/21 11:15 XR chest 1V portable HISTORY: 86 years-old Male Chest Pain acute atypical chest pain COMPARISON: Chest radiograph 03/03/2021 TECHNIQUE: Portable AP view of the chest FINDINGS: Cardiac silhouette is enlarged. Prior median sternotomy with CABG. Left subclavian pacer. No pneumothorax. Small pleural effusions. Pulmonary vascular congestion with interstitial coarsening, progressed from comparison. Degenerative changes of the shoulders and spine. Round radiodensity is again noted projecting over the abdominal right upper quadrant measuring up to approximately 3.5 cm, possibly a calcified gallstone. Degenerative changes of the shoulders and spine. IMPRESSION: 1. Cardiomegaly with progressive pulmonary edema. 2. Small pleural effusions. ACT 112: Negative or not required by law. The above report was generated using voice recognition software. It may contain grammatical, syntax or spelling errors. Electronically signed by: Bon Alfonso M.D. 03/09/2021 11:45 AM ECG Additional Comments: 09-MAR-2021 09:57:42 [facility]-EDSTAT ROUTINE RETRIEVAL Ventricular-paced rhythm Abnormal ECG When compared with ECG of 03-MAR-2021 10:17, Vent. rate has decreas ed BY 3 BPM 25mm/s 10mm/mV 150Hz 9.0.9 12SL 241 GUANAKO: 3 Referred by: REFERRED SELF Unconfirmed Vent. rate 60 BPM FL interval * ms QRS duration 156 ms QT/QTc 492/492 ms Code Status & VTE Plan Code Status DNR/DNI -discussed with the patient at bedside Supervising Physician Co-Signing Physician Notes Patient is an 86-year-old male with history of coronary artery disease, CHF, aortic stenosis, CKD, diabetes, atrial fibrillation on chronic anticoagulation with Eliquis and other medical problems presents with history of shortness of breath associated with chest heaviness since this morning. He was recently admitted at [facility] and was discharged after being treated for CHF, chest pain. Patient states taking his medications regularly as prescribed. Please review HPI for complete details of presentation. While in ED he was noted to have elevated hypertension[place] [address]. Chest x-ray was consistent with progressive pulmonary edema and small pleural effusions. He was saturating well on room air. He received a dose of IV Lasix while in ED. Symptoms improved after Lasix administration. On exam patient is elderly, moderately built and nourished, no apparent distress, normocephalic atraumatic, right eye blindness--chronic, lungs--bilateral crackles noted, S1-S2,+ murmur, + 1-2+ bilateral lower extremity pitting edema, abdomen soft, nontender, normal bowel sounds, alert, awake, oriented, grossly no focal deficits. Patient is admitted for management of acute on chronic congestive heart failure, pulmonary edema, uncontrolled high blood pressure. Will hold p.o. Lasix, start on IV 40 mg Lasix daily. Will monitor I's and O's, daily weight and placed on fluid restriction. Will consult cardiology. Will obtain limited echo to rule out wall motion abnormality. Will trend cardiac enzymes. Will resume his home antihypertensives and adjust the dose as needed. We will continue Coreg for rate control and continue apixaban for anticoagulation. I personally reviewed the record. Patient is interviewed and examined at bedside. Patient's care is coordinated with Somwya Casas PA-C. Please refer to the documentation above for details of patient's presentation and for discussion of other issues. (1) CHF (congestive heart failure) Heart failure type: other Qualified Code(s): I50.9 - Heart failure, unspecified (2) Chest pain Chest pain type: unspecified Qualified Code(s): R07.9 - Chest pain, unspecified
[2021-03-09 13:38] LABS: Influenza A virus by PCR Negative (Neg); Influenza B virus by PCR Negative (Neg); RSV by PCR Negative (Neg); SARS CoV2 RNA(COVID-19) InHosp NEGATIVE (Negative)
--- NOTE | 2021-03-09 14:05 | Emergency Department Note ---
Impression & Plan Chest pain, CHF (congestive heart failure), HTN (hypertension) ED Provider Note NAME: RAMONA ZAPATA AGE: 86 SEX: M : 1935 ARRIVES VIA: Ambulance INFORMANT: Patient, ED PROVIDER(S): Pollo Perez MD CHIEF COMPLAINT: chest pain HPI: This is a 86-year-old male who presents emergency department complaining of chest pain. Patient reports he woke up this morning and began having severe chest pain that he describes as an ache that radiated into his back. The patient did not take anything for the pain. He sat down and rested however called 911 and an ambulance came to take him to the emergency department. Patient was given 324 of aspirin in route. The patient notes he was just admitted here to the hospital for his chest pain and he stayed here for 3 days. Upon arrival to the emergency department the patient is pain-free and he has no complaints. He denies any fevers or chills. He reports nothing seems to make the chest pain any better or worse but notes he did rest and the chest pain eventually went away. ROS: See above HPI for pertinent positives & negatives. A total of 10 systems reviewed and were otherwise negative. PAST MEDICAL HISTORY: See Below PAST SURGICAL HISTORY: See Below FAMILY HISTORY: See Below SOCIAL HISTORY: See Below HOME MEDICATIONS: See Below ALLERGIES: See Below VITALS: See Below PHYSICAL EXAMINATION: VITAL SIGNS - Vital signs and nursing notes were reviewed. GENERAL - 86-year-old male appearing stated age who is in no acute distress. Communicates well with provider and answers questions appropriately. SKIN - Without rashes. HEAD - NC/AT. EYES - PERRL with EOMI bilaterally. Sclera anicteric. Palpebral conjunctiva pink and moist with no injection noted. EARS - No deformities of external structures noted on gross examination bilat erally. NOSE - Midline and without cyanosis. No epistaxis or purulent drainage noted. Septum midline without deviation or septal hematoma noted. MOUTH/OROPHARYNX - Without perioral cyanosis. Buccal mucosa pink and moist and without leukoplakia. Tongue midline with equal elevation of palate bilaterally. No tonsillar hypertrophy, erythema, or exudates noted. NECK - Neck with FROM. Supple to palpation. No nuchal rigidity. LUNGS - Chest wall symmetric without accessory muscle use, intercostals retractions, or central cyanosis. Normal vesicular breath sounds CTA B/L. No wheezes, rales, or rhonchi appreciated. CARDIAC - RRR with S1/S2. No murmur, rubs, or gallops appreciated. ABDOMEN - Abdominal contour without pulsations or visible masses. BS normoactive all four quadrants. No tenderness, palpable masses, hepatosplenomegaly, or ascites noted. EXTREMITIES - No clubbing or peripheral cyanosis. No pretibial edema present. +3/5 radial, posterior tibial, and dorsalis pedis pulses palpated throughout. +5/5 strength noted in UE/LE bilaterally. NEUROLOGIC - Cranial nerves II through XII grossly intact. Sensory intact to light touch throughout. Patellar reflexes +2/4. PSYCH - A&Ox3 and cooperates fully with examiner. Pt is very pleasant and interacts well with examiner. MEDICAL DECISION MAKING: Patient was seen and evaluated as above in room A9. Review was performed of nursing notes and vital signs. I did review pertinent previous visits and patient history. After obtaining a thorough history and physical examination the above work up was performed. This is an 86-year-old male who presents emergency department complaining of chest pain. Patient's BNP is elevated his chest x-ray confirms pulmonary edema. For this reason the patient was given Lasix here in the emergency department. His troponin is not undetectable. I did discuss all my findings with the bulldozer mechanic on-call Dr. Vargas who is requesting that the patient be admitted to the hospital. I did discuss the case with the hospitalist service who did agree to admit the patient . An order was placed for continuous cardiac monitoring. The monitor shows a rate of 60 with paced rhythm. The patient was evaluated during a period of high volume and high acuity during the global COVID-19 pandemic, and that diagnosis was suspected/considered upon their initial presentation. Their evaluation, treatment and testing was consistent with current guidelines for patients who present with complaints or s ymptoms that may be related to COVID-19. Patient was seen while provider was wearing PPE. Triage Nursing notes reviewed. Prior medical records reviewed Vital Signs: reviewed and remarkable for no significant abnormalities Differential diagnosis: Cardiac ischemia, aortic dissection, pulmonary embolism, pneumothorax, pneumonia, pericarditis, myocarditis, esophageal rupture, GERD, cholecystitis, pancreatitis, musculoskeletal, as well as other pathologies. ER treatment provided: See below Diagnostics interpreted by me: ECG: EKG shows a ventricular paced rhythm QTC is 492 ventricular rate of [address] elevation or depression he come EKG is compared to 03-03-2021 ventricular rate has decreased by 3 Second EKG shows a ventricular paced rhythm QTC is 494 ventricular rate is [address] elevation or depression it is unchanged from the previous Laboratory studies: As stated above and show below. Imaging studies: See below Consultation(s): Cardiology Internal Medicine Past Med/Surg History Medical History (Updated 03/11/21 @ 18:49 by Pollo Perez MD) Aortic stenosis Bradycardia CAD (coronary artery disease) Diabetes Diabetes mellitus, type II Dizziness HLD (hyperlipidemia) HTN (hypertension) Mitral regurgitation Neuropathy Surgical History 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 S/P cardiac pacemaker procedure Family History Mother Heart disease Father Prostate cancer Social History Smoking Status: Former smoker Tobacco Type: Pipe Second Hand Exposure: No; Hx Alcohol Use: No Hx Substance Use: No Preferred Language: German Communication Ability: Effective Safety Officer Required: No Beliefs That Will Affect Care: None marital status: Unknown Current Living Situation: Personal Care Facility How many Children do You have: 2 Other Information That Helps Us Care for You: No Feels Safe at Home: Yes Safety Concerns: Feels Safe At This Time Assistive Devices: None Allergies Allergies Allergy/AdvReac Type Severity Reaction Status Date / Time No Known Allergies Allergy Unverified 02/04/21 13:49 Home Meds Home Medications Medication Instructions Recorded Confirmed Lumigan 1 drp OPB HS 12/31/19 03/09/21 aspirin 81 mg PO QAM 12/31/19 03/09/21 brimonidine 1 drp OPL TID 12/31/19 03/09/21 dorzolamide-timolol 1 drp OPL BID 12/31/19 03/09/21 metformin 500 mg PO BIDM 12/31/19 03/09/21 carvedilol 3.125 mg PO BID 02/04/21 03/09/21 cyanocobalamin (vitamin B-12) 1,000 mcg PO QAM 02/04/21 03/09/21 Previous Rx's Medication Instructions Recorded Eliquis 2.5 mg PO BID 30 Days #60 tab 03/05/21 losartan 25 mg PO QAM #30 tab 03/05/21 atorvastatin 40 mg PO QAM #30 tab 03/11/21 furosemide 40 mg PO DAILY #30 tab 03/11/21 isosorbide mononitrate 30 mg PO QAM #30 tab 03/11/21 potassium chloride [Klor-Con M20] 10 meq PO QAM #30 tab 03/11/21 Results & Data (ED) Vital Signs Vital Signs - 24 hr 03/09/21 09:55 03/09/21 11:50 03/09/21 12:00 Temperature 37.3 C Temperature Source Oral Pulse Rate 60 60 Pulse Rate [Left Apical] 60 Pulse Rate from SpO2 Sensor 60 Pulse Rhythm Regular Pulse Rhythm [Left Apical] Regular Pulse Strength Normal Pulse Strength [Left Apical] Normal Respiratory Rate 16 17 22 Respiratory Effort / Characteristics Non-Labored Spontaneous Non-Labored Spontaneous Respiratory Depth Normal Normal Respiratory Pattern Regular Regular Blood Pressure 172/63 H 167/64 H Blood Pressure [Left Arm] 182/69 H Blood Pressure Mean 99 98 Blood Pressure Mean [Left Arm] 106 Blood Pressure Position Lying Blood Pressure Position [Left Arm] Lying Pulse Oximetry 93 95 96 Oxygen Delivery Method Room Air Room Air Sepsis Recent Fever Within 48 Hours No Sepsis New/Unexplained Change in Mental Status N/A Sepsis Action Taken by Nursing No Action Required 03/09/21 12:30 03/09/21 13:15 Temperature Temperature Source Pulse Rate 60 Pulse Rate [Left Apical] Pulse Rate from SpO2 Sensor 60 Pulse Rhythm Pulse Rhythm [Left Apical] Pulse Strength Pulse Strength [Left Apical] Respiratory Rate 20 Respiratory Effort / Characteristics Respiratory Depth Respiratory Pattern Blood Pressure 153/64 H Blood Pressure [Left Arm] Blood Pressure Mean 93 Blood Pressure Mean [Left Arm] Blood Pressure Position Blood Pressure Position [Left Arm] Pulse Oximetry 95 97 Oxygen Delivery Method Sepsis Recent Fever Within 48 Hours Sepsis New/Unexplained Change in Mental Status Sepsis Action Taken by Nursing Laboratory Data Result diagrams: 03/11/21 05:44 03/11/21 05:44 Lab Results 03/09/21 03/09/21 03/09/21 Range/Units 11:30 11:30 12:35 WBC 7.47 (4.8-10.8) K/uL RBC 3.59 L (4.7-6.1) M/uL Hgb 11.1 L (14.0-18.0) g/dL Hct 33.6 L (42-52) % MCV 93.6 (80-100) fL MCH 30.9 (25-34) pg MCHC 33.0 (32-36) g/dL RDW Std Deviation 51.7 H (36.4-46.3) fL RDW Coeff of [place] 15.2 H (11.5-14.5) % Plt Count 306 (130-400) K/uL MPV 9.7 (7.4-10.4) fL Immature Gran % (Auto) 0.3 % Neut % (Auto) 71.7 % Lymph % (Auto) 17.4 % Oliver % (Auto) 7.1 % Eos % (Auto) 2.8 % Baso % (Auto) 0.7 % Neut # (Auto) 5.36 (1.4-6.5) K/uL Lymph # (Auto) 1.30 (1.2-3.4) K/uL Oliver # (Auto) 0.53 (0.11-0.59) K/uL Eos # (Auto) 0.21 (0-0.5) K/uL Baso # (Auto) 0.05 (0-0.2) K/uL Immature Gran # (Auto) 0.02 (0.00-0.02) K/uL Sodium 142 (136-145) mmol/L Potassium 4.0 (3.5-5.1) mmol/L Chloride 112 H (98-107) mmol/L Carbon Dioxide 23 (21-32) mmol/L Anion Gap 7.0 (3-11) BUN 26 H (7-18) mg/dl Creatinine 1.10 (0.6-1.4) mg/dl Est Cr Clr Drug Dosing 49.1 ml/min Est GFR ( Amer) 70.6 Est GFR (Non-Af Amer) 60.9 BUN/Creatinine Ratio 23.6 H (10-20) Glucose 118 H (70-99) mg/dl Calcium 9.1 (8.5-10.1) mg/dl Total Bilirubin 1.1 H (0.2-1) mg/dl AST 11 L (15-37) U/L ALT 11 L (12-78) U/L Alkaline Phosphatase 70 (45-117) U/L Total Creatine Kinase 69 (39-308) U/L CK-MB (CK-2) < 1.0 (0.5-3.6) ng/ml CK/CKMB % Calc TNP Troponin I 0.023 (0-0.045) ng/ml NT-Pro-B Natriuret Pep 09921 H (0-1800) pg/ml Total Protein 7.0 (6.4-8.2) gm/dl Albumin 3.5 (3.4-5.0) gm/dl Globulin 3.5 (2.5-4.0) gm/dl Albumin/Globulin Ratio 1.0 (0.9-2) Lipase 119 (73-393) U/L COVID-19 Eval Order CovFluRsv at [facility] SARS-CoV-2 (PCR) (Negative) Influenza Type A (PCR) (Neg) Influenza Type B (PCR) (Neg) RSV (RT-PCR) (Neg) 03/09/21 03/09/21 Range/Units 12:35 12:39 WBC (4.8-10.8) K/uL RBC (4.7-6.1) M/uL Hgb (14.0-18.0) g/dL Hct (42-52) % MCV (80-100) fL MCH (25-34) pg MCHC (32-36) g/dL RDW Std Deviation (36.4-46.3) fL RDW Coeff of Lib[place] (11.5-14.5) % Plt Count (130-400) K/uL MPV (7.4-10.4) fL Immature Gran % (Auto) % Neut % (Auto) % Lymph % (Auto) % Oliver % (Auto) % Eos % (Auto) % Baso % (Auto) % Neut # (Auto) (1.4-6.5) K/uL Lymph # (Auto) (1.2-3.4) K/uL Oliver # (Auto) (0.11-0.59) K/uL Eos # (Auto) (0-0.5) K/uL Baso # (Auto) (0-0.2) K/uL Immature Gran # (Auto) (0.00-0.02) K/uL Sodium (136-145) mmol/L Potassium (3.5-5.1) mmol/L Chloride (98-107) mmol/L Carbon Dioxide (21-32) mmol/L Anion Gap (3-11) BUN (7-18) mg/dl Creatinine (0.6-1.4) mg/dl Est Cr Clr Drug Dosing ml/min Est GFR ( Amer) Est GFR (Non-Af Amer) BUN/Creatinine Ratio (10-20) Glucose (70-99) mg/dl Calcium (8.5-10.1) mg/dl Total Bilirubin (0.2-1) mg/dl AST (15-37) U/L ALT (12-78) U/L Alkaline Phosphatase (45-117) U/L Total Creatine Kinase (39-308) U/L CK-MB (CK-2) (0.5-3.6) ng/ml CK/CKMB % Calc Troponin I 0.022 (0-0.045) ng/ml NT-Pro-B Natriuret Pep (0-1800) pg/ml Total Protein (6.4-8.2) gm/dl Albumin (3.4-5.0) gm/dl Globulin (2.5-4.0) gm/dl Albumin/Globulin Ratio (0.9-2) Lipase (73-393) U/L COVID-19 Eval Order SARS-CoV-2 (PCR) NEGATIVE (Negative) Influenza Type A (PCR) Negative (Neg) Influenza Type B (PCR) Negative (Neg) RSV (RT-PCR) Negative (Neg) Administered Medications Discontinued Medications Apixaban (Apixaban 2.5 Mg Tab) 2.5 mg PO BID [facility] Stop: 04/08/21 20:59 Last Admin: 03/11/21 08:20 Dose: 2.5 mg Documented by: [id number] Admin: 03/10/21 20:13 Dose: 2.5 mg Documented by: [id number] Admin: 03/10/21 08:03 Dose: 2.5 mg Documented by: [id number] Admin: 03/09/21 20:31 Dose: 2.5 mg Documented by: [id number] Aspirin (Aspirin 81 Mg Ectab) [facility] [place]: 04/09/21 08:59 Last Admin: 03/11/21 08:20 Dose: 81 mg Documented by: [id number] Admin: 03/10/21 08:04 Dose: 81 mg Documented by: [id number] Atorvastatin Calcium (Atorvastatin 40 Mg Tab) 40 mg PO QAM [facility] Stop: 04/09/21 08:59 Last Admin: 03/11/21 08:20 Dose: 40 mg Documented by: [id number] Admin: 03/10/21 08:04 Dose: 40 mg Documented by: [id number] Bimatoprost (Bimatoprost 0.01% Op Soln 2.5 Ml Btl) 1 drops OPB HS [facility] Stop: 04/08/21 20:59 Last Admin: 03/10/21 20:13 Dose: 1 drops Documented by: [id number] Admin: 03/09/21 20:32 Dose: 1 drops Documented by: [id number] Brimonidine Tartrate (Brimonidine Tartrate 0.2% 5ml) 1 drops OPL TID [facility] Stop: 04/08/21 20:59 Last Admin: 03/11/21 08:26 Dose: 1 drops Documented by: [id number] Admin: 03/10/21 20:14 Dose: 1 drops Documented by: [id number] Admin: 03/10/21 14:35 Dose: 1 drops Documented by: [id number] Admin: 03/10/21 08:04 Dose: 1 drops Documented by: [id number] Admin: 03/09/21 20:31 Dose: 1 drops Documented by: [id number] Carvedilol (Carvedilol 3.125 Mg Tab) 3.125 mg PO BID [facility] Stop: 04/08/21 20:59 Last Admin: 03/11/21 08:19 Dose: 3.125 mg Documented by: [id number] Admin: 03/10/21 20:15 Dose: 3.125 mg Documented by: [id number] Admin: 03/10/21 08:03 Dose: 3.125 mg Documented by: [id number] Admin: 03/09/21 20:31 Dose: 3.125 mg Documented by: [id number] Cyanocobalamin (Cyanocobalamin 500 Mcg Tablet (Vitamin B-12)) 1,000 mcg PO QAM [facility] Stop: 04/09/21 08:59 Last Admin: 03/11/21 08:19 Dose: 1,000 mcg Documented by: [id number] Admin: 03/10/21 08:03 Dose: 1,000 mcg Documented by: [id number] Dorzolamide/Timolol (Dorzolamide/Timolol 22.3/6.8mg/Ml 10 Ml Btl) 1 drops OPL BID [facility] Stop: 04/08/21 20:59 Last Admin: 03/11/21 08:27 Dose: 1 drops Documented by: [id number] Admin: 03/10/21 20:13 Dose: 1 drops Documented by: [id number] Admin: 03/10/21 08:04 Dose: 1 drops Documented by: [id number] Admin: 03/09/21 20:32 Dose: 1 drops Documented by: [id number] Furosemide (Furosemide 40 Mg/4 Ml Vial) 40 mg IV NOW STA Stop: 03/09/21 12:10 Last Admin: 03/09/21 12:39 Dose: 40 mg Documented by: [id number] Furosemide 40 mg/ Syringe 4 mls @ 4 mls/min IV QAM [facility] Stop: 04/09/21 08:59 Last Admin: 03/11/21 08:18 Dose: 4 mls/min Documented by: [id number] Admin: 03/10/21 08:03 Dose: 4 mls/min Documented by: [id number] Insulin Aspart (Insulin Aspart 100 Units/Ml 3 Ml Pen) 0 units SC ACHS [facility] Stop: 04/08/21 16:29 Last Admin: 03/11/21 13:11 Dose: 3 units Documented by: [id number] Cosigned by: [id number] Admin: 03/11/21 08:22 Dose: Not Given Documented by: [id number] Admin: 03/10/21 20:18 Dose: Not Given Documented by: [id number] Admin: 03/10/21 17:19 Dose: 2 units Documented by: [id number] Cosigned by: [id number] Admin: 03/10/21 12:19 Dose: 1 units Documented by: [id number] Cosigned by: [id number] Admin: 03/10/21 08:02 Dose: Not Given Documented by: [id number] Cosigned by: [id number] Admin: 03/09/21 20:44 Dose: Not Given Documented by: [id number] Admin: 03/09/21 16:54 Dose: Not Given Documented by: [id number] Cosigned by: [id number] Isosorbide Mononitrate (Isosorbide Oliver Extended Rel 30 Mg Tabcr) 15 mg PO QAM [facility] Stop: 04/09/21 08:59 Last Admin: 03/11/21 08:19 Dose: 15 mg Documented by: [id number] Admin: 03/10/21 08:03 Dose: 15 mg Documented by: [id number] Isosorbide Mononitrate (Isosorbide Oliver Extended Rel 30 Mg Tabcr) 15 mg PO NOW ONE Stop: 03/11/21 11:14 Last Admin: 03/11/21 11:55 Dose: 15 mg Documented by: [id number] Losartan Potassium (Losartan Potassium 25 Mg Tab) 25 mg PO [facility] Stop: 04/09/21 08:59 Last Admin: 03/11/21 08:19 Dose: 25 mg Documented by: [id number] Admin: 03/10/21 08:04 Dose: 25 mg Documented by: [id number] Losartan Potassium (Losartan Potassium 25 Mg Tab) 25 mg PO ONE ONE Stop: 03/10/21 02:01 Last Admin: 03/10/21 01:56 Dose: 25 mg Documented by: [id number] Potassium Chloride (Potassium Chloride Crtab 20 Meq Tabcr) 20 meq PO NOW STA Stop: 03/10/21 09:56 Last Admin: 03/10/21 12:19 Dose: 20 meq Documented by: [id number] Potassium Chloride (Potassium Chloride Crtab 20 Meq Tabcr) 20 meq PO [facility] Stop: 04/09/21 15:14 Last Admin: 03/11/21 08:19 Dose: 20 meq Documented by: [id number] Admin: 03/10/21 15:54 Dose: 20 meq Documented by: [id number] Imaging Data Radiologist's Impression: Chest X-Ray 03/09/21 11:15 XR chest 1V portable HISTORY: 86 years-old Male Chest Pain acute atypical chest pain COMPARISON: Chest radiograph 03/03/2021 TECHNIQUE: Portable AP view of the chest FINDINGS: Cardiac silhouette is enlarged. Prior median sternotomy with CABG. Left subclavian pacer. No pneumothorax. Small pleural effusions. Pulmonary vascular congestion with interstitial coarsening, progressed from comparison. Degenerative changes of the shoulders and spine. Round radiodensity is again noted projecting over the abdominal right upper quadrant measuring up to approximately 3.5 cm, possibly a calcified gallstone. Degenerative changes of the shoulders and spine. IMPRESSION: 1. Cardiomegaly with progressive pulmonary edema. 2. Small pleural effusions. ACT 112: Negative or not required by law. The above report was generated using voice recognition software. It may contain grammatical, syntax or spelling errors. Electronically signed by: Bon Alfonso M.D. 03/09/2021 11:45 AM Discharge Plan Visit Data Chief Complaint: Chest Pain Stated Complaint: DIFF. BREATHING, CHEST PAIN ED Provider: Pollo Perez Discharge Problem: Chest pain, CHF (congestive heart failure), HTN (hypertension) Patient Disposition: Admitted As Inpatient Discharge Instructions Interventions: ED Discharge Assessment Last Done: 03/09/21 14:33 Discharge Problem: Chest pain Qualifiers: Chest pain type: unspecified Qualified Code(s): R07.9 - Chest pain, unspecified CHF (congestive heart failure) Qualifiers: Heart failure type: unspecified Heart failure chronicity: unspecified Qualified Code(s): I50.9 - Heart failure, unspecified HTN (hypertension) Qualifiers: Hypertension type: unspecified Qualified Code(s): I10 - Essential (primary) hypertension
[2021-03-09] MEDS ORDERED: GLUCOSE 40% GEL 15 GM TUBE PO PRN (15:03)
[2021-03-09] MEDS ORDERED: DEXTROSE 50% 50 ML SYRINGE IV PRN (15:03)
[2021-03-09] MEDS ORDERED: CARBOHYDRATES FOR HYPOGLYCEMIA PO PRN (15:03)
[2021-03-09] MEDS ORDERED: GLUCOSE 10 TABS/TUBE PO PRN (15:03)
[2021-03-09] MEDS ORDERED: ACETAMINOPHEN 325 MG TAB PO PRN (15:03)
[2021-03-09] MEDS ORDERED: GLUCAGON FOR INJ 1 MG VIAL SQ PRN (15:03)
[2021-03-09] MEDS ORDERED: PROMETHAZINE HCL 12.5 MG in SODIUM CHLORIDE 0.9% 50 ML IV PRN (15:03)
[2021-03-09] MEDS: INSULIN ASPART 100 UNITS/ML 3 ML PEN SC SCH ×2 (16:54→20:44)
[2021-03-09] MEDS ORDERED: ALBUTEROL 0.083% NEBU SOLN 3 ML VIAL NEB PRN (18:24)
--- NOTE | 2021-03-09 18:37 | Cardiology Consultation ---
Date of Consultation March 09, 2021 Assessment & Plan (1) Substernal chest pain: (2) CHF (congestive heart failure): Acute decompensation of heart failure with preserved ejection fraction in the setting of mixed valvular heart disease with recent echocardiogram performed 03/04/2021 revealed low normal LVEF, 50 to 55%, moderate mitral vegetation, moderate aortic valve stenosis moderate aortic valve regurgitation. Limited focused echo performed today revealed similar wall motion and LVEF. Moderate concentric left ventricular hypertrophy and diastolic dysfunction once again noted. The patient certainly has underlying coronary heart disease, and perhaps in addition to diuretic therapy, he would benefit from treatment with isosorbide mononitrate for afterload reduction. He was discharged on relatively conservative dose of furosemide in order to avoid side effects of orthostatic hypotension, but his chest x-ray is certainly consistent with recurrent volume overload as is his physical exam. Reinitiate IV furosemide. EKG reveals underlying A. fib with ventricular paced rhythm. Continue Eliquis for recently diagnosed atrial fibrillation. Continue carvedilol. History of Present Illness Attending Physician: Bryan Medel MD History of Present Illness Delio Padilla is an 86-year-old female seen in cardiology consultation per the request of Sowmya Casas PA-C for the evaluation of chest discomfort and shortness of breath. The patient's primary cash posting clerk is Dr. Rich. He presents today with recurrent bandlike chest discomfort and shortness of breath. He had presented with similar symptoms about a week ago on 03/03/2021 and was treated for an acute decompensation of diastolic heart failure, with noted hypertension and mixed valvular heart disease. He was discharged on new diuretic therapy with furosemide 20 mg 3 days/week, losartan, carvedilol. Patient's blood pressure was elevated on presentation, chest x-ray, BNP, and mild troponin elevation all consistent with recurrent volume overload. He has a history of underlying coronary heart disease with remote CABG in 2007 and [place] pacemaker in 2017. Allergies Allergy/AdvReac Type Severity Reaction Status Date / Time No Known Allergies Allergy Unverified 02/04/21 13:49 Home Medications Medication Instructions Recorded Confirmed Type Rosibel 1 henry OPB HS 12/31/19 03/09/21 History aspirin 81 mg PO QAM 12/31/19 03/09/21 History atorvastatin 40 mg PO QAM 12/31/19 03/09/21 History brimonidine 1 drp OPL TID 12/31/19 03/09/21 History dorzolamide-timolol 1 drp OPL BID 12/31/19 03/09/21 History metformin 500 mg PO BIDM 12/31/19 03/09/21 History carvedilol 3.125 mg PO BID 02/04/21 03/09/21 History cyanocobalamin (vitamin B-12) 1,000 mcg PO QAM 02/04/21 03/09/21 History apixaban [Eliquis] 2.5 mg PO BID 30 Days #60 tab 03/05/21 03/09/21 Rx furosemide 20 mg PO 3XWK #30 tab 03/05/21 03/09/21 Rx losartan 25 mg PO QAM #30 tab 03/05/21 03/09/21 Rx Patient History Medical History Aortic stenosis Bradycardia CAD (coronary artery disease) Diabetes Diabetes mellitus, type II Dizziness HLD (hyperlipidemia) HTN (hypertension) Mitral regurgitation Neuropathy Surgical History 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 S/P cardiac pacemaker procedure Family History Mother Heart disease Father Prostate cancer Social History Smoking Status: Former smoker Tobacco Type: Pipe Second Hand Exposure: No; Hx Alcohol Use: No Hx Substance Use: No Preferred Language: Japanese Communication Ability: Effective 3Rd Grade Reading Teacher Required: No Beliefs That Will Affect Care: None marital status: Unknown Current Living Situation: Personal Care Facility How many Children do You have: 2 Other Information That Helps Us Care for You: No Feels Safe at Home: Yes Safety Concerns: Feels Safe At This Time Assistive Devices: Walker Physical Exam Physical Exam: Temp Pulse Resp BP Pulse Ox 36.5 C 60 20 169/69 H 96 03/09/21 15:25 03/09/21 15:25 03/09/21 15:25 03/09/21 15:25 03/09/21 15:25 Constitutional: WD/WN, vitals as above Respiratory: Auscultation: + rales (Rales bilaterally at the bases) Cardiovascular: Rate/Rhythm: regular rhythm Heart Sounds: + murmur (1/6 systolic murmur) Gastrointestinal (Abdomen): normal bowel sounds, soft, nontender, no hepatosplenomegaly Neurologic: PERRL, EOMI, accommodation nl, no face palsy, no dysarthria Results & Data ([facility]) Vital Signs (Past 12 Hours) Vital Signs Temp Pulse Pulse Pulse Resp BP BP 03/09/21 15:25 36.5 C 60 20 03/09/21 14:50 36.6 C 60 60 18 168/63 H 03/09/21 14:33 60 18 177/70 H 03/09/21 13:15 03/09/21 12:30 60 20 153/64 H 03/09/21 12:00 60 22 167/64 H 03/09/21 11:50 60 17 182/69 H 03/09/21 09:55 37.3 C 60 16 172/63 H BP Pulse Ox 03/09/21 15:25 169/69 H 96 03/09/21 14:50 95 03/09/21 14:33 98 03/09/21 13:15 97 03/09/21 12:30 95 03/09/21 12:00 96 03/09/21 11:50 95 03/09/21 09:55 93
[2021-03-09] MEDS: carvediloL 3.125 MG TAB PO SCH (20:31)
[2021-03-09] MEDS: BRIMONIDINE TARTRATE 0.2% 5ML OPL SCH (20:31)
[2021-03-09] MEDS: APIXABAN 2.5 MG TAB PO SCH (20:31)
[2021-03-09] MEDS: BIMATOPROST 0.01% OP SOLN 2.5 ML BTL OPB SCH (20:32)
[2021-03-09] MEDS: DORZOLAMIDE/TIMOLOL 22.3/6.8MG/ML 10 ML BTL OPL SCH (20:32)
[2021-03-10] MEDS ORDERED: LOSARTAN POTASSIUM 25 MG TAB PO ONE (02:00)
--- NOTE | 2021-03-10 06:09 | Electrocardiogram Report ---
Test Reason : Blood Pressure : / mmHG Vent. Rate : 060 BPM Atrial Rate : 357 BPM P-R Int : 000 ms QRS Dur : 156 ms QT Int : 492 ms P-R-T Axes : 000 -68 098 degrees QTc Int : 492 ms Ventricular-paced rhythm Abnormal ECG When compared with ECG of 03-MAR-2021 10:17, Vent. rate has decreased BY 3 BPM Confirmed by Jessee Wren ([id number]) on 03/10/2021 6:09:44 AM Referred By: REFERRED SELF Confirmed By:Jessee Wren
[2021-03-10 06:32] LABS: Hematocrit (blood only) 32.5 % (42-52); Hemoglobin 10.6 g/dL (14.0-18.0); Mean Corpuscular Hemoglobin 30.5 pg (25-34); Mean Corpuscular Hgb Conc 32.6 g/dL (32-36); Mean Corpuscular Volume 93.7 fL (80-100); Mean Platelet Volume 9.7 fL (7.4-10.4); Platelet Count 295 K/uL (130-400); RDW Coefficient of Variation 15.1 % (11.5-14.5); RDW Standard Deviation 51.3 fL (36.4-46.3); Red Blood Count 3.47 M/uL (4.7-6.1); White Blood Count 7.37 K/uL (4.8-10.8)
[2021-03-10 06:59] LABS: Albumin Level 3.1 gm/dl (3.4-5.0); BUN Creatinine Ratio 23.4 (10-20); Calcium 9.1 mg/dl (8.5-10.1); Creatinine Clr Calc Pharmacy 47.4 ml/min; Est GFR (African American) 67.6 ml/min; Est GFR (Non-African American) 58.3 ml/min; Magnesium 1.9 mg/dl (1.8-2.4); Phosphorus 4.1 mg/dl (2.5-4.9); Potassium 3.5 mmol/L (3.5-5.1)
[2021-03-10 07:02] LABS: Albumin Globulin Ratio 0.9 (0.9-2); Bilirubin,Total 1.2 mg/dl (0.2-1); Globulin 3.3 gm/dl (2.5-4.0); Total Protein 6.4 gm/dl (6.4-8.2)
[2021-03-10] MEDS: INSULIN ASPART 100 UNITS/ML 3 ML PEN SC SCH ×4 (08:02→20:18)
[2021-03-10] MEDS: ISOSORBIDE MONO EXTENDED REL 30 MG TABCR PO SCH (08:03)
[2021-03-10] MEDS: CYANOCOBALAMIN 500 MCG TABLET (VITAMIN B-12) PO SCH (08:03)
[2021-03-10] MEDS: FUROSEMIDE 40 MG in SYRINGE 0 ML IV SCH (08:03)
[2021-03-10] MEDS: APIXABAN 2.5 MG TAB PO SCH ×2 (08:03→20:13)
[2021-03-10] MEDS: carvediloL 3.125 MG TAB PO SCH ×2 (08:03→20:15)
[2021-03-10] MEDS: LOSARTAN POTASSIUM 25 MG TAB PO SCH (08:04)
[2021-03-10] MEDS: ASPIRIN 81 MG ECTAB PO SCH (08:04)
[2021-03-10] MEDS: DORZOLAMIDE/TIMOLOL 22.3/6.8MG/ML 10 ML BTL OPL SCH ×2 (08:04→20:13)
[2021-03-10] MEDS: BRIMONIDINE TARTRATE 0.2% 5ML OPL SCH ×3 (08:04→20:14)
[2021-03-10] MEDS: ATORVASTATIN 40 MG TAB PO SCH (08:04)
[2021-03-10] MEDS ORDERED: FUROSEMIDE 40 MG/4 ML VIAL IV SCH (09:00)
[2021-03-10] MEDS ORDERED: POTASSIUM CHLORIDE CRTAB 20 MEQ TABCR PO STA (09:55)
--- NOTE | 2021-03-10 09:56 | Hospitalist Progress Note ---
Date of Service March 10, 2021 Assessment & Plan (1) Chest pain: (2) CHF (congestive heart failure): - Admit to [facility] for chest pain - Trend cardiac biomarkers, initial set 0.023 - EKG reviewed as above - Last echo done on 03/03/21 and showed moderate LVH, EF of 50 to 55%, moderate aortic regurg, moderate aortic stenosis, moderate mitral regurg, moderate pulmonary hypertension with estimated pulmonary artery pressure of 35 mmHg. - Limited echo obtained and reviewed by cardiology - Cardiology consulted - appreciate recommendations -starting patient [place] [address] now (was 9000 upon last admit), CXR reviewed showing bilateral small pleural effusions, sob as per HPI. Has progressive pulmonary edema compared to last weeks imaging. - Lasix 40 mg IV given in ED - continued IV lasix 40 daily, will consider to switch to PO - Was discharged last week on lasix 20 mg Mon, Wed, Fri - prior to this was on 40 mg daily. - Weighs himself twice weekly and is 162-164 lbs at baseline. - Daily weights, strict I/Os, fluid restriction of 1500mL - PT/OT consulted (3) CAD (coronary artery disease): - coronary artery bypass surgery in 2008 in [place]. He also received a [employer] pacemaker in 2017 in [place]. - hx of moderate- severe bilateral internal carotid artery disease - Continue BB, statin, ARB, aspirin - Started on Eliquis 2.5 mg BID for stroke prophylaxis last week during previous admission. - Trending troponins as above - Cards consulted (4) HTN (hypertension): - Per cardiology during last admit were going to allow for some permissive HTN, SBP of < 160 mmHg (5) HLD (hyperlipidemia): - Cont statin therapy (6) Aortic stenosis: - [place] on exam, checking 2D echo to evaluate - Cardiology as above (7) S/P cardiac pacemaker procedure: - Follows with [facility] as an outpatient, EKG NSR ventricularly paced (8) Mitral regurgitation: - chronic (9) Diabetes mellitus, type II: - ISS with accuchecks achs - pt needs glucometer and test strips for at home - A1C 6.2 on 03/04/21 - Hold [employer] metformin while inpt. (10) DVT prophylaxis: - teds, eliquis as above CODE: DNR/DNI Dispo: From home, likely to DC back home when medically stable Admission and Anticipated Discharge Date Admission Date: March 09, 2021 Subjective Patient seen in follow-up of chest pain, CHF Currently sitting up in bed, in no acute distress, feeling much better, denies any chest pain Also denies any shortness of breath, able to walk to the bathroom No nausea, vomiting no significant weakness, patient is inquiring about going home Review of Systems Review of Systems: All systems reviewed & are unremarkable except as noted in HPI & below Constitutional: no fever and no chills Respiratory: no cough and no dyspnea Cardiovascular: no chest pain and no palpitations Gastrointestinal: no abdominal pain, no nausea and no vomiting Physical Exam Physical Exam: General: awake, alert, no apparent distress Head: Normocephalic, atraumatic ENT: 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 Left eye reactive to light with intact EOM. no pharyngeal exudate, mucous membranes moist Chest: Diminished breath sounds at bases bilaterally, on room air, no rales, crackles or wheeze. Cardiac: Regular rate and rhythm, + systolic murmur grade 3/6, no JVD, normal peripheral pulses, good capillary refill Abdominal: NABS x 4 quadrants, soft, nondistended, nontender to palpation, no rebound or guarding Extremities: Normal inspection, right leg with 1+ pitting peripheral edema, left leg without edema, no erythema, calves nontender to palpation Psych: Normal mood and affect Neuro: AAO x 3, strength intact bilaterally and rated 5/5, no motor deficits, speech is clear, no peripheral sensory deficits Results & Data Results & Data ([facility]) Vital Signs (Past 12 Hours) Vital Signs Temp Pulse Pulse Resp BP BP Pulse Ox 03/10/21 08:44 64 03/10/21 08:00 36.8 C 65 20 164/71 H 96 03/10/21 04:00 36.2 C L 60 16 176/69 H 95 03/09/21 23:48 36.2 C L 60 22 181/67 H 94 03/09/21 23:33 60 Laboratory Results 03/10/21 03/10/21 03/10/21 Range/Units 07:34 05:44 05:44 WBC 7.37 (4.8-10.8) K/uL RBC 3.47 L (4.7-6.1) M/uL Hgb 10.6 L (14.0-18.0) g/dL Hct 32.5 L (42-52) % MCV 93.7 (80-100) fL MCH 30.5 (25-34) pg MCHC 32.6 (32-36) g/dL RDW Std Deviation 51.3 H (36.4-46.3) fL RDW Coeff of [place] 15.1 H (11.5-14.5) % Plt Count 295 (130-400) K/uL MPV 9.7 (7.4-10.4) fL Immature Gran % (Auto) % Neut % (Auto) % Lymph % (Auto) % [place] % (Auto) % Eos % (Auto) % Baso % (Auto) % Neut # (Auto) (1.4-6.5) K/uL Lymph # (Auto) (1.2-3.4) K/uL [place] # (Auto) (0.11-0.59) K/uL Eos # (Auto) (0-0.5) K/uL Baso # (Auto) (0-0.2) K/uL Immature Gran # (Auto) (0.00-0.02) K/uL Sodium 142 (136-145) mmol/L Potassium 3.5 (3.5-5.1) mmol/L Chloride 109 H (98-107) mmol/L Carbon Dioxide 25 (21-32) mmol/L Anion Gap 7.0 (3-11) BUN 27 H (7-18) mg/dl Creatinine 1.14 (0.6-1.4) mg/dl Est Cr Clr Drug Dosing 47.4 ml/min Est GFR ( Amer) 67.6 Est GFR (Non-Af Amer) 58.3 BUN/Creatinine Ratio 23.4 H (10-20) Glucose 103 H (70-99) mg/dl POC Glucose 115 H (70-99) mg/dl Calcium 9.1 (8.5-10.1) mg/dl Phosphorus 4.1 (2.5-4.9) mg/dl Magnesium 1.9 (1.8-2.4) mg/dl Total Bilirubin 1.2 H (0.2-1) mg/dl AST 7 L (15-37) U/L ALT 10 L (12-78) U/L Alkaline Phosphatase 69 (45-117) U/L Total Creatine Kinase (39-308) U/L CK-MB (CK-2) (0.5-3.6) ng/ml CK/CKMB % Calc Troponin I (0-0.045) ng/ml NT-Pro-B Natriuret Pep (0-1800) pg/ml Total Protein 6.4 (6.4-8.2) gm/dl Albumin 3.1 L (3.4-5.0) gm/dl Globulin 3.3 (2.5-4.0) gm/dl Albumin/Globulin Ratio 0.9 (0.9-2) Lipase (73-393) U/L COVID-19 Eval Order SARS-CoV-2 (PCR) (Negative) Influenza Type A (PCR) (Neg) Influenza Type B (PCR) (Neg) RSV (RT-PCR) (Neg) 03/09/21 03/09/21 03/09/21 Range/Units 20:43 20:05 16:33 WBC (4.8-10.8) K/uL RBC (4.7-6.1) M/uL Hgb (14.0-18.0) g/dL Hct (42-52) % MCV (80-100) fL MCH (25-34) pg MCHC (32-36) g/dL RDW Std Deviation (36.4-46.3) fL RDW Coeff of [place] (11.5-14.5) % Plt Count (130-400) K/uL MPV (7.4-10.4) fL Immature Gran % (Auto) % Neut % (Auto) % Lymph % (Auto) % [place] % (Auto) % Eos % (Auto) % Baso % (Auto) % Neut # (Auto) (1.4-6.5) K/uL Lymph # (Auto) (1.2-3.4) K/uL [place] # (Auto) (0.11-0.59) K/uL Eos # (Auto) (0-0.5) K/uL Baso # (Auto) (0-0.2) K/uL Immature Gran # (Auto) (0.00-0.02) K/uL Sodium (136-145) mmol/L Potassium (3.5-5.1) mmol/L Chloride (98-107) mmol/L Carbon Dioxide (21-32) mmol/L Anion Gap (3-11) BUN (7-18) mg/dl Creatinine (0.6-1.4) mg/dl Est Cr Clr Drug Dosing ml/min Est GFR ( Amer) Est GFR (Non-Af Amer) BUN/Creatinine Ratio (10-20) Glucose (70-99) mg/dl POC Glucose 111 H 114 H (70-99) mg/dl Calcium (8.5-10.1) mg/dl Phosphorus (2.5-4.9) mg/dl Magnesium (1.8-2.4) mg/dl Total Bilirubin (0.2-1) mg/dl AST (15-37) U/L ALT (12-78) U/L Alkaline Phosphatase (45-117) U/L Total Creatine Kinase (39-308) U/L CK-MB (CK-2) (0.5-3.6) ng/ml CK/CKMB % Calc Troponin I 0.030 (0-0.045) ng/ml NT-Pro-B Natriuret Pep (0-1800) pg/ml Total Protein (6.4-8.2) gm/dl Albumin (3.4-5.0) gm/dl Globulin (2.5-4.0) gm/dl Albumin/Globulin Ratio (0.9-2) Lipase (73-393) U/L COVID-19 Eval Order SARS-CoV-2 (PCR) (Negative) Influenza Type A (PCR) (Neg) Influenza Type B (PCR) (Neg) RSV (RT-PCR) (Neg) 03/09/21 03/09/21 03/09/21 Range/Units 12:39 12:35 12:35 WBC (4.8-10.8) K/uL RBC (4.7-6.1) M/uL Hgb (14.0-18.0) g/dL Hct (42-52) % MCV (80-100) fL MCH (25-34) pg MCHC (32-36) g/dL RDW Std Deviation (36.4-46.3) fL RDW Coeff of [place] (11.5-14.5) % Plt Count (130-400) K/uL MPV (7.4-10.4) fL Immature Gran % (Auto) % Neut % (Auto) % Lymph % (Auto) % [place] % (Auto) % Eos % (Auto) % Baso % (Auto) % Neut # (Auto) (1.4-6.5) K/uL Lymph # (Auto) (1.2-3.4) K/uL [place] # (Auto) (0.11-0.59) K/uL Eos # (Auto) (0-0.5) K/uL Baso # (Auto) (0-0.2) K/uL Immature Gran # (Auto) (0.00-0.02) K/uL Sodium (136-145) mmol/L Potassium (3.5-5.1) mmol/L Chloride (98-107) mmol/L Carbon Dioxide (21-32) mmol/L Anion Gap (3-11) BUN (7-18) mg/dl Creatinine (0.6-1.4) mg/dl Est Cr Clr Drug Dosing ml/min Est GFR ( Amer) Est GFR (Non-Af Amer) BUN/Creatinine Ratio (10-20) Glucose (70-99) mg/dl POC Glucose (70-99) mg/dl Calcium (8.5-10.1) mg/dl Phosphorus (2.5-4.9) mg/dl Magnesium (1.8-2.4) mg/dl Total Bilirubin (0.2-1) mg/dl AST (15-37) U/L ALT (12-78) U/L Alkaline Phosphatase (45-117) U/L Total Creatine Kinase (39-308) U/L CK-MB (CK-2) (0.5-3.6) ng/ml CK/CKMB % Calc Troponin I 0.022 (0-0.045) ng/ml NT-Pro-B Natriuret Pep (0-1800) pg/ml Total Protein (6.4-8.2) gm/dl Albumin (3.4-5.0) gm/dl Globulin (2.5-4.0) gm/dl Albumin/Globulin Ratio (0.9-2) Lipase (73-393) U/L COVID-19 Eval Order CovFluRsv at [facility] SARS-CoV-2 (PCR) NEGATIVE (Negative) Influenza Type A (PCR) Negative (Neg) Influenza Type B (PCR) Negative (Neg) RSV (RT-PCR) Negative (Neg) 03/09/21 03/09/21 Range/Units 11:30 11:30 WBC 7.47 (4.8-10.8) K/uL RBC 3.59 L (4.7-6.1) M/uL Hgb 11.1 L (14.0-18.0) g/dL Hct 33.6 L (42-52) % MCV 93.6 (80-100) fL MCH 30.9 (25-34) pg MCHC 33.0 (32-36) g/dL RDW Std Deviation 51.7 H (36.4-46.3) fL RDW Coeff of [place] 15.2 H (11.5-14.5) % Plt Count 306 (130-400) K/uL MPV 9.7 (7.4-10.4) fL Immature Gran % (Auto) 0.3 % Neut % (Auto) 71.7 % Lymph % (Auto) 17.4 % [place] % (Auto) 7.1 % Eos % (Auto) 2.8 % Baso % (Auto) 0.7 % Neut # (Auto) 5.36 (1.4-6.5) K/uL Lymph # (Auto) 1.30 (1.2-3.4) K/uL [place] # (Auto) 0.53 (0.11-0.59) K/uL Eos # (Auto) 0.21 (0-0.5) K/uL Baso # (Auto) 0.05 (0-0.2) K/uL Immature Gran # (Auto) 0.02 (0.00-0.02) K/uL Sodium 142 (136-145) mmol/L Potassium 4.0 (3.5-5.1) mmol/L Chloride 112 H (98-107) mmol/L Carbon Dioxide 23 (21-32) mmol/L Anion Gap 7.0 (3-11) BUN 26 H (7-18) mg/dl Creatinine 1.10 (0.6-1.4) mg/dl Est Cr Clr Drug Dosing 49.1 ml/min Est GFR ( Amer) 70.6 Est GFR (Non-Af Amer) 60.9 BUN/Creatinine Ratio 23.6 H (10-20) Glucose 118 H (70-99) mg/dl POC Glucose (70-99) mg/dl Calcium 9.1 (8.5-10.1) mg/dl Phosphorus (2.5-4.9) mg/dl Magnesium (1.8-2.4) mg/dl Total Bilirubin 1.1 H (0.2-1) mg/dl AST 11 L (15-37) U/L ALT 11 L (12-78) U/L Alkaline Phosphatase 70 (45-117) U/L Total Creatine Kinase 69 (39-308) U/L CK-MB (CK-2) < 1.0 (0.5-3.6) ng/ml CK/CKMB % Calc TNP Troponin I 0.023 (0-0.045) ng/ml NT-Pro-B Natriuret Pep 63392 H (0-1800) pg/ml Total Protein 7.0 (6.4-8.2) gm/dl Albumin 3.5 (3.4-5.0) gm/dl Globulin 3.5 (2.5-4.0) gm/dl Albumin/Globulin Ratio 1.0 (0.9-2) Lipase 119 (73-393) U/L COVID-19 Eval Order SARS-CoV-2 (PCR) (Negative) Influenza Type A (PCR) (Neg) Influenza Type B (PCR) (Neg) RSV (RT-PCR) (Neg) Medications Administered Current Inpatient Medications Acetaminophen (Acetaminophen 325 Mg Tab) 650 mg PO Q4H PRN PRN Reason: Moderate Pain Stop: 04/08/21 15:02 Albuterol (Albuterol 0.083% Nebu Soln 3 Ml Vial) 2.5 mg NEB Q6R PRN PRN Reason: Shortness Of Breath Or Wheezing Stop: 04/08/21 18:23 Apixaban (Apixaban 2.5 Mg Tab) 2.5 mg PO BID [facility] Stop: 04/08/21 20:59 Last Admin: 03/10/21 08:03 Dose: 2.5 mg Documented by: Aspirin (Aspirin 81 Mg Ectab) 81 mg PO QAM [facility] Stop: 04/09/21 08:59 Last Admin: 03/10/21 08:04 Dose: 81 mg Documented by: Atorvastatin Calcium (Atorvastatin 40 Mg Tab) 40 mg PO QAM [facility] Stop: 04/09/21 08:59 Last Admin: 03/10/21 08:04 Dose: 40 mg Documented by: Bimatoprost (Bimatoprost 0.01% Op Soln 2.5 Ml Btl) 1 drops OPB HS [facility] Stop: 04/08/21 20:59 Last Admin: 03/09/21 20:32 Dose: 1 drops Documented by: Brimonidine Tartrate (Brimonidine Tartrate 0.2% 5ml) 1 drops OPL TID [facility] Stop: 04/08/21 20:59 Last Admin: 03/10/21 08:04 Dose: 1 drops Documented by: Carvedilol (Carvedilol 3.125 Mg Tab) 3.125 mg PO BID [facility] Stop: 04/08/21 20:59 Last Admin: 03/10/21 08:03 Dose: 3.125 mg Documented by: Cyanocobalamin (Cyanocobalamin 500 Mcg Tablet (Vitamin B-12)) 1,000 mcg PO QAM [facility] Stop: 04/09/21 08:59 Last Admin: 03/10/21 08:03 Dose: 1,000 mcg Documented by: Dextrose (Dextrose 50% 50 Ml Syringe) 25 - 50 ml IV UD PRN; Protocol PRN Reason: Hypoglycemia Protocol Stop: 04/08/21 15:02 Dorzolamide/Timolol (Dorzolamide/Timolol 22.3/6.8mg/Ml 10 Ml Btl) 1 drops OPL BID [facility] Stop: 04/08/21 20:59 Last Admin: 03/10/21 08:04 Dose: 1 drops Documented by: Glucagon (Glucagon For Inj 1 Mg Vial) 1 mg SQ UD PRN; Protocol PRN Reason: Hypoglycemia Protocol Stop: 04/08/21 15:02 Glucose (Glucose 10 Tabs/Tube) 4 - 8 tabs PO UD PRN; Protocol PRN Reason: Hypoglycemia Protocol Stop: 04/08/21 15:02 Glucose (Glucose 40% Gel 15 Gm Tube) 15 - 30 gm PO UD PRN; Protocol PRN Reason: Hypoglycemia Protocol Stop: 04/08/21 15:02 Promethazine HCl 12.5 mg/ (Sodium Chloride) 50.5 mls @ 202 mls/hr IV Q6H PRN PRN Reason: Nausea And Vomiting Stop: 04/08/21 15:02 Furosemide 40 mg/ Syringe 4 mls @ 4 mls/min IV QAM [facility] Stop: 04/09/21 08:59 Last Admin: 03/10/21 08:03 Dose: 4 mls/min Documented by: Insulin Aspart (Insulin Aspart 100 Units/Ml 3 Ml Pen) 0 units SC ACHS [facility] Stop: 04/08/21 16:29 Last Admin: 03/10/21 08:02 Dose: Not Given Documented by: Isosorbide Mononitrate (Isosorbide [place] Extended Rel 30 Mg Tabcr) 15 mg PO QAM [facility] Stop: 04/09/21 08:59 Last Admin: 03/10/21 08:03 Dose: 15 mg Documented by: Losartan Potassium (Losartan Potassium 25 Mg Tab) 25 mg PO QAM [facility] Stop: 04/09/21 08:59 Last Admin: 03/10/21 08:04 Dose: 25 mg Documented by: Miscellaneous (Carbohydrates For Hypoglycemia ) 15 - 30 gm PO UD PRN PRN Reason: Hypoglycemia Protocol Stop: 04/08/21 15:02 Potassium Chloride (Potassium Chloride Crtab 20 Meq Tabcr) 20 meq PO NOW STA Stop: 03/10/21 09:53 (1) CHF (congestive heart failure) Heart failure type: other Qualified Code(s): I50.9 - Heart failure, unspecified (2) Chest pain Chest pain type: unspecified Qualified Code(s): R07.9 - Chest pain, unspecified
--- NOTE | 2021-03-10 15:11 | Cardiology Progress Note ---
Date of Service March 10, 2021 Assessment & Plan (1) CHF (congestive heart failure): (2) Atrial fibrillation: Telemetry reveals ventricular paced rhythm, underlying atrial fibrillation. Continue Eliquis for stroke prophylaxis. Continue IV diuretic therapy. Replace potassium. Continue carvedilol, losartan, low-dose isosorbide mononitrate added. Treatment of hypertension and volume overload complicated due to his history of dizziness and unsteady gait. DVT prophylaxis: Remain on low-dose Eliquis. Admission and Anticipated Discharge Date Admission Date: March 09, 2021 Subjective Patient progressing toward improvement. Denies chest discomfort. I watched him walk with physical therapy. His lower legs have significant muscular atrophy, and he is a little unsteady despite utilizing a walker for support. Physical Exam Physical Exam: Temp Pulse Resp BP Pulse Ox 36.7 C 69 18 149/69 H 95 03/10/21 12:03 03/10/21 12:03 03/10/21 12:03 03/10/21 12:03 03/10/21 12:03 Constitutional: WD/WN, vitals as above Respiratory: Auscultation: + diminished lung sounds (Mildly decreased breath sounds at the bases); no crackles and no rales Cardiovascular: Rate/Rhythm: regular rhythm Heart Sounds: + murmur (1/6 systolic murmur) Gastrointestinal (Abdomen): normal bowel sounds, soft, nontender, no hepatosplenomegaly Neurologic: PERRL, EOMI, accommodation nl, no face palsy, no dysarthria Results & Data ([facility]) Vital Signs (Past 12 Hours) Vital Signs Temp Pulse Pulse Resp BP BP Pulse Ox 03/10/21 12:03 36.7 C 69 18 149/69 H 95 03/10/21 08:44 64 03/10/21 08:00 36.8 C 65 20 164/71 H 96 03/10/21 04:00 36.2 C L 60 16 176/69 H 95 Laboratory Results Cardiac Enzymes 03/09/21 03/10/21 Range/Units 20:05 05:44 AST 7 L (15-37) U/L Troponin I 0.030 (0-0.045) ng/ml CBC 03/10/21 Range/Units 05:44 WBC 7.37 (4.8-10.8) K/uL RBC 3.47 L (4.7-6.1) M/uL Hgb 10.6 L (14.0-18.0) g/dL Hct 32.5 L (42-52) % Plt Count 295 (130-400) K/uL Comprehensive Metabolic Panel 03/10/21 Range/Units 05:44 Sodium 142 (136-145) mmol/L Potassium 3.5 (3.5-5.1) mmol/L Chloride 109 H (98-107) mmol/L Carbon Dioxide 25 (21-32) mmol/L BUN 27 H (7-18) mg/dl Creatinine 1.14 (0.6-1.4) mg/dl Glucose 103 H (70-99) mg/dl Calcium 9.1 (8.5-10.1) mg/dl AST 7 L (15-37) U/L ALT 10 L (12-78) U/L Alkaline Phosphatase 69 (45-117) U/L Total Protein 6.4 (6.4-8.2) gm/dl Albumin 3.1 L (3.4-5.0) gm/dl Intake and Output 03/10/21 03/10/21 03/10/21 06:59 14:59 22:59 Intake Total 100 / 100 Balance 100 / 100 Intake: Oral 100 / 100 Other: Other Intake Source NPO # Unmeasured Voids 1 550 Weight 77.3 kg Weight Measurement Method Built in [facility]
[2021-03-10] MEDS: POTASSIUM CHLORIDE CRTAB 20 MEQ TABCR PO SCH (15:54)
--- NOTE | 2021-03-10 20:12 | Electrocardiogram Report ---
Test Reason : Blood Pressure : / mmHG Vent. Rate : 060 BPM Atrial Rate : 059 BPM P-R Int : 000 ms QRS Dur : 156 ms QT Int : 494 ms P-R-T Axes : 000 -68 118 degrees QTc Int : 494 ms Ventricular-paced rhythm Abnormal ECG When compared with ECG of 09-MAR-2021 09:57, No significant change was found Confirmed by Jessee Wren ([id number]) on 03/10/2021 8:12:53 PM Referred By: REFERRED SELF Confirmed By:Jessee Wren
[2021-03-10] MEDS: BIMATOPROST 0.01% OP SOLN 2.5 ML BTL OPB SCH (20:13)
[2021-03-11 06:21] LABS: Hematocrit (blood only) 29.5 % (42-52); Hemoglobin 9.7 g/dL (14.0-18.0); Mean Corpuscular Hemoglobin 30.9 pg (25-34); Mean Corpuscular Hgb Conc 32.9 g/dL (32-36); Mean Corpuscular Volume 93.9 fL (80-100); Mean Platelet Volume 9.5 fL (7.4-10.4); Platelet Count 267 K/uL (130-400); RDW Coefficient of Variation 15.3 % (11.5-14.5); RDW Standard Deviation 51.5 fL (36.4-46.3); Red Blood Count 3.14 M/uL (4.7-6.1)
[2021-03-11 06:50] LABS: Calcium 8.7 mg/dl (8.5-10.1); Creatinine Clr Calc Pharmacy 47.8 ml/min; Est GFR (African American) 68.3 ml/min; Est GFR (Non-African American) 58.9 ml/min; Potassium 3.7 mmol/L (3.5-5.1)
[2021-03-11 06:57] LABS: Bilirubin,Total 0.9 mg/dl (0.2-1); Globulin 2.9 gm/dl (2.5-4.0); Phosphorus 3.2 mg/dl (2.5-4.9); Total Protein 5.9 gm/dl (6.4-8.2)
--- NOTE | 2021-03-11 08:15 | Hospitalist Progress Note ---
Date of Service March 11, 2021 Assessment & Plan (1) Chest pain: (2) CHF (congestive heart failure): - Trended cardiac biomarkers, initial set 0.023 -> 0.030 - EKG reviewed as above - Last echo done on 03/03/21 and showed moderate LVH, EF of 50 to 55%, moderate aortic regurg, moderate aortic stenosis, moderate mitral regurg, moderate pulmonary hypertension with estimated pulmonary artery pressure of 35 mmHg. - Limited echo obtained and reviewed by cardiology - Cardiology consulted - appreciate recommendations -starting patient on [place] - [place] [address] on this admission (was 9000 upon last admit), CXR reviewed showing bilateral small pleural effusions, sob as per HPI. Has progressive pulmonary edema compared to last weeks imaging. - Lasix 40 mg IV given in ED - continued IV lasix 40 daily, will consider to switch to PO - Was discharged last week on lasix 20 mg Mon, Wed, Fri - prior to this was on 40 mg daily. - Weighs himself twice weekly and is 162-164 lbs at baseline. - Daily weights, strict I/Os, fluid restriction of 1500mL - PT/OT consulted Discharge medication recommendations per cardiology, Coreg 3.125 mg BID Losartan 25 mg daily Imdur 30 mg daily (new) Furosemide 40 mg daily (compared to 20 mg 3 days per week) KCL 10 meq daily ASA 81 mg daily Eliquis 2.5 mg BID Atorvastatin 40 mg daily. Follow up with Dr Rich, within 1-2 weeks (3) CAD (coronary artery disease): - coronary artery bypass surgery in 2008 in [place]. He also received a [employer] pacemaker in 2017 in [place]. - hx of moderate- severe bilateral internal carotid artery disease - Continue BB, statin, ARB, aspirin - Started on Eliquis 2.5 mg BID for stroke prophylaxis last week during previous admission. 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 (10) DVT prophylaxis: - arabella avalos as above CODE: DNR/DNI Dispo: Plan to DC home Admission and Anticipated Discharge Date Admission Date: March 09, 2021 Subjective Patient seen in follow-up of chest pain, CHF Currently sitting up in chair, in no acute distress, feeling much better, denies any chest pain Also denies any shortness of breath, able to walk to the bathroom No nausea, vomiting no significant weakness, patient is inquiring about going home Cardiology following, ok to discharge, with close cardiology follow-up, and discharge medications reviewed/ updated Review of Systems Review of Systems: All systems reviewed & are unremarkable except as noted in HPI & below Constitutional: no fever and no chills Respiratory: no cough and no dyspnea Cardiovascular: no chest pain and no palpitations Gastrointestinal: no abdominal pain and no vomiting Physical Exam Physical Exam: General: awake, alert, no apparent distress Head: Normocephalic, atraumatic ENT: 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 Left eye reactive to light with intact EOM. no pharyngeal exudate, mucous membranes moist Chest: Diminished breath sounds at bases bilaterally, on room air, no rales, crackles or wheeze. Cardiac: Regular rate and rhythm, + systolic murmur grade 2/6, no JVD, normal peripheral pulses, good capillary refill Abdominal: NABS x 4 quadrants, soft, nondistended, nontender to palpation, no rebound or guarding Extremities: Normal inspection, no peripheral edema, no erythema, calves nontender to palpation Psych: Normal mood and affect Neuro: AAO x 3, strength intact bilaterally and rated 5/5, no motor deficits, speech is clear, no peripheral sensory deficits Results & Data Results & Data ([facility]) Vital Signs (Past 12 Hours) Vital Signs Temp Pulse Pulse Resp BP Pulse Ox 03/11/21 07:53 36.6 C 61 18 162/62 H 97 03/11/21 03:55 36.4 C L 59 L 18 148/68 H 96 03/10/21 23:54 36.3 C L 61 18 136/65 95 03/10/21 23:19 60 Laboratory Results 03/11/21 03/11/21 03/11/21 Range/Units 07:26 05:44 05:44 WBC 5.90 (4.8-10.8) K/uL RBC 3.14 L (4.7-6.1) M/uL Hgb 9.7 L (14.0-18.0) g/dL Hct 29.5 L (42-52) % MCV 93.9 (80-100) fL MCH 30.9 (25-34) pg MCHC 32.9 (32-36) g/dL RDW Std Deviation 51.5 H (36.4-46.3) fL RDW Coeff of [place] 15.3 H (11.5-14.5) % Plt Count 267 (130-400) K/uL MPV 9.5 (7.4-10.4) fL Sodium 143 (136-145) mmol/L Potassium 3.7 (3.5-5.1) mmol/L Chloride 111 H (98-107) mmol/L Carbon Dioxide 27 (21-32) mmol/L Anion Gap 5.0 (3-11) BUN 28 H (7-18) mg/dl Creatinine 1.13 (0.6-1.4) mg/dl Est Cr Clr Drug Dosing 47.8 ml/min Est GFR ( Amer) 68.3 ml/min Est GFR (Non-Af Amer) 58.9 ml/min BUN/Creatinine Ratio 25.0 H (10-20) Glucose 95 (70-99) mg/dl POC Glucose 116 H (70-99) mg/dl Calcium 8.7 (8.5-10.1) mg/dl Phosphorus 3.2 (2.5-4.9) mg/dl Magnesium 2.0 (1.8-2.4) mg/dl Total Bilirubin 0.9 (0.2-1) mg/dl AST 8 L (15-37) U/L ALT 9 L (12-78) U/L Alkaline Phosphatase 62 (45-117) U/L Total Protein 5.9 L (6.4-8.2) gm/dl Albumin 3.0 L (3.4-5.0) gm/dl Globulin 2.9 (2.5-4.0) gm/dl Albumin/Globulin Ratio 1.0 (0.9-2) 03/10/21 03/10/21 03/10/21 Range/Units 20:17 16:34 11:16 WBC (4.8-10.8) K/uL RBC (4.7-6.1) M/uL Hgb (14.0-18.0) g/dL Hct (42-52) % MCV (80-100) fL MCH (25-34) pg MCHC (32-36) g/dL RDW Std Deviation (36.4-46.3) fL RDW Coeff of [place] (11.5-14.5) % Plt Count (130-400) K/uL MPV (7.4-10.4) fL Sodium (136-145) mmol/L Potassium (3.5-5.1) mmol/L Chloride (98-107) mmol/L Carbon Dioxide (21-32) mmol/L Anion Gap (3-11) BUN (7-18) mg/dl Creatinine (0.6-1.4) mg/dl Est Cr Clr Drug Dosing ml/min Est GFR ( Amer) ml/min Est GFR (Non-Af Amer) ml/min BUN/Creatinine Ratio (10-20) Glucose (70-99) mg/dl POC Glucose 122 H 179 H 103 H (70-99) mg/dl Calcium (8.5-10.1) mg/dl Phosphorus (2.5-4.9) mg/dl Magnesium (1.8-2.4) mg/dl Total Bilirubin (0.2-1) mg/dl AST (15-37) U/L ALT (12-78) U/L Alkaline Phosphatase (45-117) U/L Total Protein (6.4-8.2) gm/dl Albumin (3.4-5.0) gm/dl Globulin (2.5-4.0) gm/dl Albumin/Globulin Ratio (0.9-2) Medications Administered Current Inpatient Medications Acetaminophen (Acetaminophen 325 Mg Tab) 650 mg PO Q4H PRN PRN Reason: Moderate Pain Stop: 04/08/21 15:02 Albuterol (Albuterol 0.083% Nebu Soln 3 Ml Vial) 2.5 mg NEB Q6R PRN PRN Reason: Shortness Of Breath Or Wheezing Stop: 04/08/21 18:23 Apixaban (Apixaban 2.5 Mg Tab) 2.5 mg PO BID [facility] Stop: 04/08/21 20:59 Last Admin: 03/10/21 20:13 Dose: 2.5 mg Documented by: Aspirin (Aspirin 81 Mg Ectab) 81 mg PO QAM [facility] Stop: 04/09/21 08:59 Last Admin: 03/10/21 08:04 Dose: 81 mg Documented by: Atorvastatin Calcium (Atorvastatin 40 Mg Tab) 40 mg PO QAM [facility] Stop: 04/09/21 08:59 Last Admin: 03/10/21 08:04 Dose: 40 mg Documented by: Bimatoprost (Bimatoprost 0.01% Op Soln 2.5 Ml Btl) 1 drops OPB HS [facility] Stop: 04/08/21 20:59 Last Admin: 03/10/21 20:13 Dose: 1 drops Documented by: Brimonidine Tartrate (Brimonidine Tartrate 0.2% 5ml) 1 drops OPL TID [place] Stop: 04/08/21 20:59 Last Admin: 03/10/21 20:14 Dose: 1 drops Documented by: Carvedilol (Carvedilol 3.125 Mg Tab) 3.125 mg PO BID [facility] Stop: 04/08/21 20:59 Last Admin: 03/10/21 20:15 Dose: 3.125 mg Documented by: Cyanocobalamin (Cyanocobalamin 500 Mcg Tablet (Vitamin B-12)) 1,000 mcg PO QAM [facility] Stop: 04/09/21 08:59 Last Admin: 03/10/21 08:03 Dose: 1,000 mcg Documented by: Dextrose (Dextrose 50% 50 Ml Syringe) 25 - 50 ml IV UD PRN; Protocol PRN Reason: Hypoglycemia Protocol Stop: 04/08/21 15:02 Dorzolamide/Timolol (Dorzolamide/Timolol 22.3/6.8mg/Ml 10 Ml Btl) 1 drops OPL BID [place] Stop: 04/08/21 20:59 Last Admin: 03/10/21 20:13 Dose: 1 drops Documented by: Glucagon (Glucagon For Inj 1 Mg Vial) 1 mg SQ UD PRN; Protocol PRN Reason: Hypoglycemia Protocol Stop: 04/08/21 15:02 Glucose (Glucose 10 Tabs/Tube) 4 - 8 tabs PO UD PRN; Protocol PRN Reason: Hypoglycemia Protocol Stop: 04/08/21 15:02 Glucose (Glucose 40% Gel 15 Gm Tube) 15 - 30 gm PO UD PRN; Protocol PRN Reason: Hypoglycemia Protocol Stop: 04/08/21 15:02 Promethazine HCl 12.5 mg/ (Sodium Chloride) 50.5 mls @ 202 mls/hr IV Q6H PRN PRN Reason: Nausea And Vomiting Stop: 04/08/21 15:02 Furosemide 40 mg/ Syringe 4 mls @ 4 mls/min IV QAM [facility] Stop: 04/09/21 08:59 Last Admin: 03/10/21 08:03 Dose: 4 mls/min Documented by: Insulin Aspart (Insulin Aspart 100 Units/Ml 3 Ml Pen) 0 units SC [facility] Stop: 04/08/21 16:29 Last Admin: 03/10/21 20:18 Dose: Not Given Documented by: Isosorbide Mononitrate (Isosorbide Lamar Extended Rel 30 Mg Tabcr) [facility] Stop: 04/09/21 08:59 Last Admin: 03/10/21 08:03 Dose: 15 mg Documented by: Losartan Potassium (Losartan Potassium 25 Mg Tab) [facility] Stop: 04/09/21 08:59 Last Admin: 03/10/21 08:04 Dose: 25 mg Documented by: Miscellaneous (Carbohydrates For Hypoglycemia ) 15 - 30 gm PO UD PRN PRN Reason: Hypoglycemia Protocol Stop: 04/08/21 15:02 Potassium Chloride (Potassium Chloride Crtab 20 Meq Tabcr) 20 meq [facility] Stop: 04/09/21 15:14 Last Admin: 03/10/21 15:54 Dose: 20 meq Documented by: (1) CHF (congestive heart failure) Heart failure type: other Qualified Code(s): I50.9 - Heart failure, unspecified (2) Chest pain Chest pain type: unspecified Qualified Code(s): R07.9 - Chest pain, unspe cified
[2021-03-11] MEDS: FUROSEMIDE 40 MG in SYRINGE 0 ML IV SCH (08:18)
[2021-03-11] MEDS: LOSARTAN POTASSIUM 25 MG TAB PO SCH (08:19)
[2021-03-11] MEDS: ISOSORBIDE MONO EXTENDED REL 30 MG TABCR PO SCH (08:19)
[2021-03-11] MEDS: POTASSIUM CHLORIDE CRTAB 20 MEQ TABCR PO SCH (08:19)
[2021-03-11] MEDS: carvediloL 3.125 MG TAB PO SCH (08:19)
[2021-03-11] MEDS: CYANOCOBALAMIN 500 MCG TABLET (VITAMIN B-12) PO SCH (08:19)
[2021-03-11] MEDS: APIXABAN 2.5 MG TAB PO SCH (08:20)
[2021-03-11] MEDS: ASPIRIN 81 MG ECTAB PO SCH (08:20)
[2021-03-11] MEDS: ATORVASTATIN 40 MG TAB PO SCH (08:20)
[2021-03-11] MEDS: INSULIN ASPART 100 UNITS/ML 3 ML PEN SC SCH ×2 (08:22→13:11)
[2021-03-11] MEDS: BRIMONIDINE TARTRATE 0.2% 5ML OPL SCH (08:26)
[2021-03-11] MEDS: DORZOLAMIDE/TIMOLOL 22.3/6.8MG/ML 10 ML BTL OPL SCH (08:27)
[2021-03-11] MEDS ORDERED: ISOSORBIDE MONO EXTENDED REL 30 MG TABCR PO ONE (11:13)
--- NOTE | 2021-03-11 11:35 | Cardiology Progress Note ---
Date of Service March 11, 2021 Assessment & Plan (1) CHF (congestive heart failure): (2) Atrial fibrillation: (3) Aortic stenosis: (4) Mitral regurgitation: Stable for discharge on follow in medications: Coreg 3.125 mg BID Losartan 25 mg daily Imdur 30 mg daily (new) Furosemide 40 mg daily (compared to 20 mg 3 days per week) KCL 10 meq daily ASA 31 mg daily Eliquis 2.5 mg BID Atorvastatin 40 mg daily. Follow up with Dr Rich, within 1-2 weeks, should already have visit planned from prior hospital stay. Admission and Anticipated Discharge Date Admission Date: March 09, 2021 Subjective Mr Padilla is seen in cardiology follow up. He feels well. No chest pain or MAURICIO. Telemetry reveals AF, ventricular paced rhythm in the 60s. Physical Exam Physical Exam: Temp Pulse Resp BP Pulse Ox 36.6 C 61 18 162/62 H 97 03/11/21 07:53 03/11/21 07:53 03/11/21 07:53 03/11/21 07:53 03/11/21 07:53 Constitutional: WD/WN, vitals as above Respiratory: normal respiratory effort, lungs clear to auscultation Cardiovascular: Rate/Rhythm: regular rhythm Heart Sounds: + murmur (1/6 SM) Gastrointestinal (Abdomen): normal bowel sounds, soft, nontender, no hepatosplenomegaly Neurologic: PERRL, EOMI, accommodation nl, no face palsy, no dysarthria Results & Data ([facility]) Vital Signs (Past 12 Hours) Vital Signs Temp Pulse Resp BP Pulse Ox 03/11/21 07:53 36.6 C 61 18 162/62 H 97 03/11/21 03:55 36.4 C L 59 L 18 148/68 H 96 03/10/21 23:54 36.3 C L 61 18 136/65 95
--- NOTE | 2021-03-11 12:44 | Discharge Summary ---
Date of Service March 11, 2021 Admission HPI Per Admitting Provider This is an 86 yo M with PMHx of CAD s/p bypass in 2007, moderately severe bilateral internal carotid arter disease, HTN, HLD, chronic systolic CHF with EF of 40-55%, aortic stenosis, cardiac pacemaker in situ, DM II, CKD stage III who presents with acute onset of chest pain. Mr. Padilla was recently evaluated at [facility] on 02/04/2021 after experiencing a fall preceded by dizziness, lightheadedness with positional change. He admits to intermittent episodes of dizziness followed by lightheadedness always with positional change. During his visit there Lasix was reduced from 40 mg to 20 mg/day. Losartan was reduced from 25 to 12.5 mg daily. Since then he reports his blood pressure has been checked daily by an automatic cuff at home and is either normal to slightly high. He is unsure about changes in symptoms since change of medication was made. He was readmitted last week on 03/03/21- 03/05/21 for chest heaviness and pressure. He was evaluated by cardiology and diuresed with improvement in his symptoms. Pt represents today for acute onset of chest pain/heaviness/pressure with diaphoresis and associated shortness of breath upon waking up and getting himself around this morning. This lasted for a few minutes, and improved with rest. Denies palpitations, flutter, radiation of pain, headache, nausea, or vomiting. Denies orthopnea. He reports no worsening breathing since change of lasix dosing to MWF last week, no swelling in legs or stomach. He did not eat anything this morning, but was able to take his morning medications. Pt called his neighbor who then called an ambulance for him. His brother in law is present at bedside. Here pt is found to have increased pulmonary edema on CXR and was given Lasix 40 mg IV in the ER. His case was discussed with cardiology, and was recommended he be admitted and be actively diuresed. BNP and troponin are elevated compared to last week. 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 Left eye reactive to light with intact EOM. no pharyngeal exudate, mucous membranes moist Chest: Diminished breath sounds at bases bilaterally, on room air, no rales, crackles or wheeze. Cardiac: Regular rate and rhythm, + systolic murmur grade 3/6, no JVD, normal peripheral pulses, good capillary refill Abdominal: NABS x 4 quadrants, soft, nondistended, nontender to palpation, no rebound or guarding Extremities: Normal inspection, right leg with 1+ pitting peripheral edema, left leg without edema, no erythema, calfs nontender to palpation Psych: Normal mood and affect Neuro: AAO x 3, strength intact bilaterally and rated 5/5, no motor deficits, speech is clear, no peripheral sensory deficits Principal Diagnosis Chest pain secondary to CHF exacerbation Atrial fibrillation Aortic stenosis Discharge Exam General: awake, alert, no apparent distress Head: Normocephalic, atraumatic ENT: 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 Left eye reactive to light with intact EOM. no pharyngeal exudate, mucous membranes moist Chest: Diminished breath sounds at bases bilaterally, on room air, no rales, crackles or wheeze. Cardiac: Regular rate and rhythm, + systolic murmur grade 2/6, no JVD, normal peripheral pulses, good capillary refill Abdominal: NABS x 4 quadrants, soft, nondistended, nontender to palpation, no rebound or guarding Extremities: Normal inspection, no peripheral edema, no erythema, calves nontender to palpation Psych: Normal mood and affect Neuro: AAO x 3, strength intact bilaterally and rated 5/5, no motor deficits, speech is clear, no peripheral sensory deficits Discharge Data Allergies Allergy/AdvReac Type Severity Reaction Status Date / Time No Known Allergies Allergy Unverified 02/04/21 13:49 Consultations 03/09/21 12:19 Consult Cardiology Stat ED Decision to Admit Stat 03/09/21 15:03 Consult Cardiology Routine Hospital Course (1) Chest pain: (2) CHF (congestive heart failure): - Trended cardiac biomarkers, initial set 0.023 -> 0.030 - EKG reviewed as above - Last echo done on 03/03/21 and showed moderate LVH, EF of 50 to 55%, moderate aortic regurg, moderate aortic stenosis, moderate mitral regurg, moderate pulmonary hypertension with estimated pulmonary artery pressure of 35 mmHg. - Limited echo obtained and reviewed by cardiology - Cardiology consulted - appreciate recommendations -starting patient on [place] - [place] [address] on this admission (was 9000 upon last admit), CXR reviewed showing bilateral small pleural effusions, sob as per HPI. Has progressive pulmonary edema compared to last weeks imaging. - Lasix 40 mg IV given in ED - continued IV lasix 40 daily, will consider to switch to PO - Was discharged last week on lasix 20 mg Mon, Wed, Fri - prior to this was on 40 mg daily. - Weighs himself twice weekly and is 162-164 lbs at baseline. - Daily weights, strict I/Os, fluid restriction of 1500mL - PT/OT consulted Discharge medication recommendations per cardiology, Coreg 3.125 mg BID Losartan 25 mg daily Imdur 30 mg daily (new) Furosemide 40 mg daily (compared to 20 mg 3 days per week) KCL 10 meq daily ASA 81 mg daily Eliquis 2.5 mg BID Atorvastatin 40 mg daily. Follow up with Dr Rich, within 1-2 weeks (3) CAD (coronary artery disease): - coronary artery bypass surgery in 2007 in [place]. He also received a [employer] pacemaker in 2017 in [place]. - hx of moderate- severe bilateral internal carotid artery disease - Continue BB, statin, ARB, aspirin - Started on Eliquis 2.5 mg BID for stroke prophylaxis last week during previous admission. 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 (10) DVT prophylaxis: - arabella avalos as above CODE: DNR/DNI Dispo: Plan to DC home Total Time Total Time Spent Total Time Spent (In Minutes): 35 Total Time Includes: Examination of the Patient, Discharge Planning, Medication Reconciliation and Communication With Other Providers Discharge Plan Discharge Items Patient Disposition: Home - Self-Care Reason For Visit: DIFF. BREATHING, CHEST PAIN Discharge Diagnosis: Chest pain secondary to CHF exacerbation Atrial fibrillation Aortic stenosis Activity: Per Instructions section Non-emergency contact: Primary Care Provider and Band Instrument Maker Call non-emergency contact if: you have any medication questions and your symptoms worsen Follow-up/Referrals: Jaelyn Pemberton MD [Primary Care Provider] - Diet: Low Sodium (2gm) Fluids: 1500ml (6 cups) Addtl Attending Provider Instructions: Follow up with the primary care doctor, within 1 week. You should also follow- up with your renal technician, Dr. Rich in 1 to 2 weeks. You were started on a new medication, Imdur 30 mg daily. Prescription was sent to your pharmacy. Continue taking Coreg, losartan, aspirin and Eliquis as prescribed. Take furosemide/Lasix 40 mg daily, instead of 20 mg 3 times per week. Atorvastatin dose was increased to 40 mg daily. Make sure to review all these medications with your health care providers at your follow-up appointments. Addtl Sustainability Director Provider Instructions: Call your Primary Care doctor if any of the following symptoms or problems start or get worse: * Shortness of breath or difficulty breathing * Wake up at night short of breath * Chest pain * Cough * Swelling of your hands, feet, or legs * More fatigued or tired with your normal activity * Palpitations - sudden fast heart beats WEIGHT * Weigh yourself every morning after using the bathroom. * Use the same scale. * Wear the same amount of clothing. * Write your weight down on a chart. * Call your Primary Care doctor if you gain more than 2-3 pounds in 1-2 days. MEDICATIONS * Use this discharge instruction sheet for medication instructions. * Take your medications at the time your doctor ordered. * Do not skip a dose of your medicines. * If you miss a dose of medicine, take it as soon as possible, but DO NOT DOUBLE A DOSE. * Read your medicine information when you get home. * Know all of the side effects of your medicine. If in doubt, ask your pharmacist * Call your Primary Care doctor's office if you have any side effects. * Be sure all of your doctors know what medicine and herbs you take (including cold, flu, and herbal medicine). Take the following with you to your follow-up doctor appointments: * Weight Chart * Medication List * List of questions Do not drink excessive alcohol, beer or wine. Pending Studies at Discharge: No Stand-Alone Forms: My [facility], Smoking Cessation Medications and DC Order Prescriptions: New atorvastatin 40 mg Tablet 40 mg PO QAM Qty: 30 RF: 0 isosorbide mononitrate 30 mg Tablet Extended Release 24 Hr 30 mg PO QAM Qty: 30 RF: 0 potassium chloride [Klor-Con M20] 20 mEq Tablet,Er Particles/Crystals 10 meq PO QAM Qty: 30 RF: 0 furosemide 40 mg tablet 40 mg PO DAILY Qty: 30 RF: 0 Continued metformin 500 mg Tablet 500 mg PO BIDM RF: 0 aspirin 81 mg Tablet,Delayed Release (Dr/Ec) 81 mg PO QAM RF: 0 dorzolamide-timolol 22.3-6.8 mg/mL Drops 1 drp OPL BID RF: 0 Lumigan 0.01 % Drops 1 drp OPB HS RF: 0 brimonidine 0.2 % drops 1 drp OPL TID RF: 0 cyanocobalamin (vitamin B-12) 1,000 mcg tablet 1,000 mcg PO QAM RF: 0 carvedilol 3.125 mg tablet 3.125 mg PO BID RF: 0 Eliquis 2.5 mg Tablet 2.5 mg PO BID 30 Days Qty: 60 RF: 0 losartan 25 mg Tablet 25 mg PO QAM Qty: 30 RF: 0 Discontinued atorvastatin 20 mg Tablet 40 mg PO QAM RF: 0 furosemide 20 mg Tablet 20 mg PO 3XWK Qty: 30 RF: 0 Discharge Orders: Discharge Order (Routine); Ordered 03/11/21 Ordered By: Alfredo Burnett Admission Data Admit Date/Time: 03/09/21 13:02 Attending Provider: Alfredo Burnett Admit Provider: Bryan Medel Primary Care Provider: Jaelyn Pemberton Other Providers: Kamran Navarro ; Bryan Medel ; Asaf Mccarthy [facility]
[2021-03-12] MEDS ORDERED: ISOSORBIDE MONO EXTENDED REL 30 MG TABCR PO SCH (09:00)
== END 2021-03-11 14:15 | disposition home health service (06) | DRG 291 ==
LOC: ED 09:48 → SUATTDRO 13:02 → 2S 13:02

== ENCOUNTER 2021-10-05 10:41 | Inpatient (IN) ==
--- NOTE | 2021-10-05 10:58 | Emergency Department Note ---
Impression & Plan Fall, Elevated troponin I level, Closed fracture of left hip ED Provider Note Provider: Carlos Falk MD DATE OF SERVICE: 10/02/2021 CHIEF COMPLAINT: Fall, left hip pain HISTORY OF PRESENT ILLNESS: Patient is a 86-year-old with a history of aortic stenosis, CHF, CAD, atrial fibrillation on Eliquis, CABG, hypertension, and diabetes presenting today after a fall last night. Patient states he accidentally fell while walking in the bathroom last night. Evidently spent the night on the floor until he was found by staff this morning Patient complains of some head and some neck pain. Arrives in cervical collar via EMS. Patient's been able to ambulate or get up and complains of significant pain in the left hip region. He denies any significant chest pain or shortness of breath. Den ies abdominal pain or nausea. Denies numbness or tingling lower extremities. Denies injury to his arms or pain in the right lower extremity. REVIEW OF SYSTEMS: A total of 10 review of systems was obtained and negative except as stated above in the HPI. PAST MEDICAL HISTORY: As noted above MEDICATIONS: Reviewed home medications SOCIAL HISTORY: Former smoker PHYSICAL EXAM: GENERAL: alert and oriented in no acute distress on stretcher in cervical collar Head: normocephalic and atraumatic EYES: No injection, discharge or icterus. PERRL NECK: Trachea midline. Supple with some mild posterior cervical tenderness. ENT: Mucous membranes pink and moist. LUNGS: Airway patent. No retractions. Breath sounds clear HEART: Regular rate and rhythm. No chest wall tenderness ABDOMEN: Soft and non-tender, without guarding or rebound. SKIN: Acyanotic, warm, dry, without rashes EXTREMITIES: Without swelling, tenderness or deformity except for pain with ROM of the left hip. Some shortening of the left leg. 1+ left DP pulse and intact sensation of the left lower leg and foot. NEUROLOGICAL: No focal deficits. No aphasia. No facial droop or slurred speech. Normal strength and tone in the extremities limited secondary to pain in left hip Sensation to gross touch normal. EK bpm ventricular paced rhythm occasional artifact without PVC noted. No acute ST segment elevation noted. QTc 504. CONTINUOUS CARDIAC MONITORING: was ordered and showed a heart rate of 60-70s bpm in ventricular paced rhythm occasional PVCs GCS 15. Patient's laboratory studies and imaging reviewed. Differential includes Fracture, dislocation, contusion, intra-abdominal, pneumothorax, intrathoracic, intracranial, neurologic, compartment syndrome, rhabdomyolysis, as well as other pathologies. IMPRESSION/MEDICAL DECISION MAKING: Patient anticoagulation presents after a fall last night mechanical in nature now with hip pain. CT the head and cervical spine completed given complaints of pain in the fall. Anticoagulated as well. CK was sent as well as basic blood work. X-rays of the chest as well as the pelvis and left hip were obtained with strong concern for possible left hip fracture. No history of replacement of left hip. Benign abdomen on exam the patient has no significant abdominal or chest wall tenderness and is not hypoxic here on room air. Lab work with stable mild anemia. Slight leukocytosis question if this is reactive from the fall. Creatinine slightly higher than normal given swelling IV fluids. Has been on the floor all night and question some component of mild dehydration. Last took his Eliquis yesterday evening. X-rays of the chest reassuring without acute pathology. Left hip x-ray however shows a left transcervical hip fracture. CTs of the head and cervical spine without acute traumatic injury and cervical spine was cleared and he had no tenderness upon removal of the cervical collar. Patient is neurologically intact. Given some Tylenol for pain. Negative for Covid. EKG appears paced without evidence of STEMI the patient & denies any active chest pain. Troponin is mildly elevated. Question if this related to demand from his downtime on floor. Doubt acute ACS. Will discuss with orthopedics and the hospitalist for further care. Dr. Eng made aware. Patient will need cardiac evaluation/clearance given the troponin and history and the hospitalist was contacted for admission. DIAGNOSIS: Fall, left hip fracture, elevated troponin DISPOSITION: Hospitalist will evaluate Patient was agreeable with this plan. Past Med/Surg History Medical History Anemia Aortic stenosis Atrial fibrillation on eliquis bid--follows with Dr. Layla Carmichael CAD (coronary artery disease) CHF (congestive heart failure) Diabetes mellitus, type II NIDDM Glaucoma HLD (hyperlipidemia) HTN (hypertension) Mitral regurgitation Neuropathy On anticoagulant therapy eliquis bid Walker as ambulation aid Surgical History History of bilateral cataract extraction History of colonoscopy History of coronary artery bypass graft 2007 in the [place] History of open reduction and internal fixation (ORIF) procedure left ankle--hardware in place S/P cardiac pacemaker procedure 2017--[facility] Family History Mother Heart disease Father Prostate cancer Other No family history of adverse response to anesthesia Social History Smoking Status: Never smoker Tobacco Type: Pipe Second Hand Exposure: No; Hx Alcohol Use: Yes Alcohol type: wine Hx Substance Use: No Preferred Language: Serbian Communication Ability: Effective [place] [employer] Required: No Beliefs That Will Affect Care: None marital status: Unknown Current Living Situation: Alone Current Living Situation Comment: Lives alone in an apartment in a [address] building How many Children do You have: 2 Feels Safe at Home: Yes Assistive Devices: Glasses and Walker Allergies Allergies Allergy/AdvReac Type Severity Reaction Status Date / Time No Known Allergies Allergy Verified 07/14/21 13:16 Home Meds Home Medications Medication Instructions Recorded Confirmed aspirin 81 mg tablet,delayed 81 mg PO QAM 12/31/19 10/05/21 release bimatoprost 0.01 % eye drops 1 drp OPB HS 12/31/19 10/05/21 ([place]ibel) brimonidine 0.2 % eye drops 1 drp OPL TID 12/31/19 10/05/21 dorzolamide 22.3 mg-timolol 6.8 1 drp OPL BID 12/31/19 10/05/21 mg/mL eye drops metformin 500 mg tablet 500 mg PO BIDM 12/31/19 10/05/21 carvedilol 3.125 mg tablet 3.125 mg PO BID 02/04/21 10/05/21 cyanocobalamin (vitamin B-12) 1,000 mcg PO QAM 02/04/21 10/05/21 1,000 mcg tablet apixaban 2.5 mg tablet (Eliquis) 2.5 mg PO BID 05/23/21 10/05/21 folic acid 1 mg tablet 1 mg PO HS 05/23/21 10/05/21 furosemide 40 mg tablet 40 mg PO QAM 05/23/21 10/05/21 iron,carbonyl 65 mg-vitamin C 125 1 tab PO 3XWK 05/23/21 10/05/21 mg tablet,delayed release (Vitron-C) potassium chloride 20 mEq 10 meq PO QAM 05/23/21 10/05/21 tablet,extended release(part/cryst) (Klor-Con M) atorvastatin 40 mg tablet 40 mg PO QAM 07/14/21 10/05/21 nitroglycerin 0.4 mg sublingual 0.4 mg SUBLINGUAL UD PRN 07/14/21 10/05/21 tablet pantoprazole 40 mg tablet,delayed 40 mg PO BID 07/14/21 10/05/21 release potassium chloride 10 mEq 5 meq PO HS 07/14/21 10/05/21 tablet,extended release (Klor-Con) Previous Rx's Medication Instructions Recorded losartan 25 mg tablet 25 mg PO QAM #30 tab 03/05/21 isosorbide mononitrate 30 mg 30 mg PO QAM #30 tab 03/11/21 tablet,extended release 24 hr Results & Data (ED) Vital Signs Vital Signs - 24 hr 10/05/21 10:51 10/05/21 10:52 10/05/21 12:42 Temperature 36.7 C Temperature Source Oral Pulse Rate 60 Pulse Rate [Apical] 62 Respiratory Rate 22 17 Respiratory Effort / Characteristics Non-Labored Non-Labored Blood Pressure 176/77 H Blood Pressure [Left Arm] 162/63 H Blood Pressure Mean 110 Blood Pressure Mean [Left Arm] 96 Pulse Oximetry 99 98 96 Oxygen Delivery Method Room Air Room Air Room Air Sepsis Recent Fever Within 48 Hours No Sepsis New/Unexplained Change in Mental Status N/A Sepsis Action Taken by Nursing No Action Required Laboratory Data Result diagrams: 10/05/21 11:04 10/05/21 11:04 Lab Results 10/05/21 10/05/21 10/05/21 Range/Units 11:04 11:04 11:04 WBC 11.33 H (4.8-10.8) K/uL RBC 3.53 L (4.7-6.1) M/uL Hgb 11.2 L (14.0-18.0) g/dL Hct 34.0 L (42-52) % MCV 96.3 (80-100) fL MCH 31.7 (25-34) pg MCHC 32.9 (32-36) g/dL RDW Std Deviation 49.5 H (36.4-46.3) fL RDW Coeff of [place] 14.1 (11.5-14.5) % Plt Count 240 (130-400) K/uL MPV 9.5 (7.4-10.4) fL Immature Gran % (Auto) 0.3 % Neut % (Auto) 88.9 % Lymph % (Auto) 6.1 % [place] % (Auto) 4.6 % Eos % (Auto) 0.0 % Baso % (Auto) 0.1 % Neut # (Auto) 10.08 H (1.4-6.5) K/uL Lymph # (Auto) 0.69 L (1.2-3.4) K/uL [place] # (Auto) 0.52 (0.11-0.59) K/uL Eos # (Auto) 0.00 (0-0.5) K/uL Baso # (Auto) 0.01 (0-0.2) K/uL Immature Gran # (Auto) 0.03 H (0.00-0.02) K/uL Acanthocytes (Spur) 1+ PT 11.1 (9.0-12.0) Seconds INR 1.1 (0.9-1.1) Sodium (136-145) mmol/L Potassium (3.5-5.1) mmol/L Chloride (98-107) mmol/L Carbon Dioxide (21-32) mmol/L Anion Gap (3-11) BUN (7-18) mg/dl Creatinine (0.6-1.4) mg/dl Est Cr Clr Drug Dosing ml/min Est GFR ( Amer) ml/min Est GFR (Non-Af Amer) ml/min BUN/Creatinine Ratio (10-20) Glucose (70-99) mg/dl Calcium (8.5-10.1) mg/dl Magnesium (1.8-2.4) mg/dl Total Bilirubin (0.2-1) mg/dl AST (15-37) U/L ALT (12-78) Alkaline Phosphatase (45-117) U/L Total Creatine Kinase (39-308) U/L Troponin I (0-0.045) ng/ml Total Protein (6.4-8.2) gm/dl Albumin (3.4-5.0) gm/dl Globulin (2.5-4.0) gm/dl Albumin/Globulin Ratio (0.9-2) TSH (0.300-4.500) uIu/ml SARS-CoV-2, RNA, NAAT (NEGATIVE) Blood Type A Negative Antibody Screen NEGATIVE 10/05/21 10/05/21 Range/Units 11:04 11:10 WBC (4.8-10.8) K/uL RBC (4.7-6.1) M/uL Hgb (14.0-18.0) g/dL Hct (42-52) % MCV (80-100) fL MCH (25-34) pg MCHC (32-36) g/dL RDW Std Deviation (36.4-46.3) fL RDW Coeff of [place] (11.5-14.5) % Plt Count (130-400) K/uL MPV (7.4-10.4) fL Immature Gran % (Auto) % Neut % (Auto) % Lymph % (Auto) % [place] % (Auto) % Eos % (Auto) % Baso % (Auto) % Neut # (Auto) (1.4-6.5) K/uL Lymph # (Auto) (1.2-3.4) K/uL [place] # (Auto) (0.11-0.59) K/uL Eos # (Auto) (0-0.5) K/uL Baso # (Auto) (0-0.2) K/uL Immature Gran # (Auto) (0.00-0.02) K/uL Acanthocytes (Spur) PT (9.0-12.0) Seconds INR (0.9-1.1) Sodium 135 L (136-145) mmol/L Potassium 5.1 (3.5-5.1) mmol/L Chloride 106 (98-107) mmol/L Carbon Dioxide 21 (21-32) mmol/L Anion Gap 8.0 (3-11) BUN 36 H (7-18) mg/dl Creatinine 1.66 H (0.6-1.4) mg/dl Est Cr Clr Drug Dosing 28.1 ml/min Est GFR ( Amer) 42.9 ml/min Est GFR (Non-Af Amer) 37.0 ml/min BUN/Creatinine Ratio 21.9 H (10-20) Glucose 206 H (70-99) mg/dl Calcium 9.5 (8.5-10.1) mg/dl Magnesium 2.3 (1.8-2.4) mg/dl Total Bilirubin 0.7 (0.2-1) mg/dl AST 19 (15-37) U/L ALT 20 (12-78) Alkaline Phosphatase 80 (45-117) U/L Total Creatine Kinase 257 (39-308) U/L Troponin I 0.111 H* (0-0.045) ng/ml Total Protein 8.0 (6.4-8.2) gm/dl Albumin 3.9 (3.4-5.0) gm/dl Globulin 4.1 H (2.5-4.0) gm/dl Albumin/Globulin Ratio 1.0 (0.9-2) TSH 0.979 (0.300-4.500) uIu/ml SARS-CoV-2, RNA, NAAT NEGATIVE (NEGATIVE) Blood Type Antibody Screen Administered Medications Discontinued Medications Acetaminophen (Ofirmev) 1,000 mg in 100 mls @ 400 mls/hr IV NOW STA Stop: 10/05/21 12:00 Last Infusion: 10/05/21 12:15 Dose: 0 mls/hr Documented by: [id number] Admin: 10/05/21 11:58 Dose: 400 mls/hr Documented by: [id number] Sodium Chloride (Nss 1000ml) 500 mls @ 999 mls/hr IV .Q31M ONE Stop: 10/05/21 12:16 Last Infusion: 10/05/21 12:56 Dose: 0 mls/hr Documented by: [id number] Admin: 10/05/21 11:59 Dose: 999 mls/hr Documented by: [id number] Imaging Data Radiologist's Impression: Chest X-Ray 10/05/21 10:47 XR chest 1V portable CLINICAL HISTORY: fall. Evaluate cardiopulmonary status COMPARISON STUDY: 03/09/2021 TECHNIQUE: 1 view of the chest FINDINGS: Single frontal view of the chest demonstrates the heart size to be at the upper limits of normal to mildly enlarged status post previous cardiothoracic surgery and pacer placement. The lungs are clear of alveolar opacities. There is no evidence for pleural effusion. There is no evidence for vascular congestion. There is no acute osseous pathology. IMPRESSION: No acute cardiopulmonary disease. ACT 112: Negative or not required by law. Electronically signed by: Wilmer Burnham M.D. 10/05/2021 11:39 AM Hip/Pelvis X-Ray 10/05/21 10:47 XR hip LT 2V w pelvis CLINICAL HISTORY: fall, pain. COMPARISON STUDY: No previous studies for comparison. TECHNIQUE: AP pelvis and 2 left hip views FINDINGS: Bones: There is a displaced, transcervical fracture of the left femoral neck. The femoral shaft is superiorly displaced in relation to the femoral head. Coxa varus deformity is present. The left femoral head maintains its anatomic position within the acetabulum. There is no lytic or blastic lesion. Joints: The right hip joint space is mildly narrowed. The remaining bones are in anatomic alignment. Soft tissues: There is no focal soft tissue abnormality. There is no radiopaque foreign body. IMPRESSION: Evidence for a displaced, transcervical fracture of the left femoral neck. ACT 112: Negative or not required by law. Electronically signed by: Wilmer Burnham M.D. 10/05/2021 11:[address] 10/05/21 10:48 CT cervical spine wo con CLINICAL HISTORY: fall . Patient on eloquence. Neck pain. COMPARISON STUDY: 02/04/2021 TECHNIQUE: Standard CT of the Cervical Spine was performed without IV contrast. A dose lowering technique was utilized adhering to the principles of ALARA. FINDINGS: Bones: The bones are osteopenic. There is no evidence for an acute fracture or malalignment. The heights of the vertebral bodies are maintained. The vertebral bodies are in anatomic alignment. The odontoid is intact. Degenerative changes are seen at the atlantoaxial articulation. Disc spaces:There is again fusion of the C2 and C3 vertebral bodies and partial fusion at C3-4 posteriorly as well. Moderate to marked disc space narrowing is again seen at C6-7 with endplate sclerosis and osteophyte formation. Mild disc space narrowing is seen involving the remaining disc space levels. Apophyseal joints:Degenerative apophyseal joint disease is also again seen bilaterally. Soft tissues:The prevertebral soft tissues are within normal limits. IMPRESSION: Osteopenia with no acute abnormality. 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 ACT 112: Negative or not required by law. Electronically signed by: Wilmer Burnham M.D. 10/05/2021 11:[address] 10/05/21 10:48 CT head/brain wo con CLINICAL HISTORY: fall. Patient on eliquis COMPARISON STUDY: 02/04/2021 CT DOSE: 995.74 mGy.cm TECHNIQUE: Standard CT of the Brain was performed without IV contrast. A dose lowering technique was utilized adhering to the principles of ALARA. FINDINGS: Extraaxial space: There is no evidence for subdural hematoma. There are no extra-axial fluid collections. Ventricles and cisterns: The ventricles are again mildly to moderately dilated bilaterally. There is no evidence for midline shift or mass effect. Parenchyma: There is no subarachnoid or intraparenchymal hemorrhage. There is no evidence for an acute infarct or cerebral edema. There is mild cerebral cortical atrophy and decreased attenuation in the periventricular white matter representing remote small vessel disease. There are no gross mass lesions. Osseous structures: There is no evidence for an acute fracture. The visualized paranasal sinuses are clear. The mastoid air cells are clear bilaterally. Soft tissues: There is no evidence for focal soft tissue swelling. IMPRESSION: No acute intracerebral pathology. Cerebral cortical atrophy and rem ote small vessel disease. ACT 112: Negative or not required by law. Electronically signed by: Wilmer Burnham M.D. 10/05/2021 11:24 AM Hip X-Ray 10/05/21 12:44 XR hip LT min 2V CLINICAL HISTORY: left hip pain; fracture. Additional imaging required COMPARISON STUDY: 10/05/2021 TECHNIQUE: 2 left hip views FINDINGS: Bones: Compared to the previous examination, there is again evidence for a displaced fracture of the femoral neck. On the current views, it is a displaced subcapital fracture rather than a transcervical fracture. The femoral shaft is again superiorly and anteriorly displaced in relation to the femoral head with coxa varus deformity again seen . There is no lytic or blastic lesion. IMPRESSION: Additional images demonstrate the left hip fracture to be a displaced subcapital fracture. ACT 112: Negative or not required by law. Electronically signed by: Wilmer Burnham M.D. 10/05/2021 1:03 PM Discharge Plan Visit Data Chief Complaint: Fall ED Provider: Carlos Falk Discharge Problem: Fall, Elevated troponin I level, Closed fracture of left hip Patient Disposition: Being Evaluated by Hospitalist Forms Stand Alone Forms: My [employer] Prescriptions Prescriptions: No Action metformin 500 mg Tablet 500 mg PO BIDM RF: 0 aspirin 81 mg Tablet,Delayed Release (Dr/Ec) 81 mg PO QAM RF: 0 dorzolamide-timolol 22.3-6.8 mg/mL Drops 1 drp OPL BID RF: 0 Lumigan 0.01 % Drops 1 drp OPB HS RF: 0 brimonidine 0.2 % drops 1 drp OPL TID RF: 0 Vitron-C 65 mg iron- 125 mg tablet,delayed release (DR/EC) 1 tab PO 3XWK RF: 0 furosemide 40 mg tablet 40 mg PO QAM RF: 0 potassium chloride [Klor-Con M20] 20 mEq tablet,ER particles/crystals 10 meq PO QAM RF: 0 folic acid 1 mg tablet 1 mg PO HS RF: 0 Eliquis 2.5 mg tablet 2.5 mg PO BID RF: 0 cyanocobalamin (vitamin B-12) 1,000 mcg tablet 1,000 mcg PO QAM RF: 0 carvedilol 3.125 mg tablet 3.125 mg PO BID RF: 0 losartan 25 mg Tablet 25 mg PO QAM Qty: 30 RF: 0 isosorbide mononitrate 30 mg Tablet Extended Release 24 Hr 30 mg PO QAM Qty: 30 RF: 0 potassium chloride [Klor-Con 10] 10 mEq Tablet Extended Release 5 meq PO HS RF: 0 atorvastatin 40 mg tablet 40 mg PO QAM RF: 0 pantoprazole 40 mg Tablet,Delayed Release (Dr/Ec) 40 mg PO BID RF: 0 nitroglycerin 0.4 mg Tablet, Sublingual 0.4 mg sublingual UD PRN (Reason: Angina) RF: 0 Referrals Referrals: Jaelyn Pemberton MD [Primary Care Provider] - Discharge Problem: Fall Qualifiers: Encounter type: initial encounter Qualified Code(s): W19.XXXA - Unspecified fall, initial encounter Closed fracture of left hip Qualifiers: Encounter type: initial encounter Qualified Code(s): S72.002A - Fracture of unspecified part of neck of left femur, initial encounter for closed fracture
[2021-10-05 11:11] LABS: Hemoglobin 11.2 g/dL (14.0-18.0); Mean Corpuscular Hemoglobin 31.7 pg (25-34); Mean Corpuscular Hgb Conc 32.9 g/dL (32-36); Mean Corpuscular Volume 96.3 fL (80-100); Mean Platelet Volume 9.5 fL (7.4-10.4); Platelet Count 240 K/uL (130-400); RDW Coefficient of Variation 14.1 % (11.5-14.5); RDW Standard Deviation 49.5 fL (36.4-46.3); Red Blood Count 3.53 M/uL (4.7-6.1); White Blood Count 11.33 K/uL (4.8-10.8)
--- NOTE | 2021-10-05 11:25 | CT Scan Report ---
CT head/brain wo con CLINICAL HISTORY: fall. Patient on eliquis COMPARISON STUDY: 02/04/2021 CT DOSE: 995.74 mGy.cm TECHNIQUE: Standard CT of the Brain was performed without IV contrast. A dose lowering technique was utilized adhering to the principles of ALARA. FINDINGS: Extraaxial space: There is no evidence for subdural hematoma. There are no extra-axial fluid collecti ons. Ventricles and cisterns: The ventricles are again mildly to moderately dilated bilaterally. There is no evidence for midline shift or mass effect. Parenchyma: There is no subarachnoid or intraparenchymal hemorrhage. There is no evidence for an acu te infarct or cerebral edema. There is mild cerebral cortical atrophy and decreased attenuation in th e periventricular white matter representing remote small vessel disease. There are no gross mass lesi ons. Osseous structures: There is no evidence for an acute fracture. The visualized paranasal sinuses are clear. The mastoid air cells are clear bilaterally. Soft tissues: There is no evidence for focal soft tissue swelling. IMPRESSION: No acute intracerebral pathology. Cerebral cortical atrophy and remote small vessel disea se. ACT 112: Negative or not required by law. Electronically signed by: Wilmer Burnham M.D. 10/05/2021 11:24 AM
[2021-10-05 11:26] LABS: INR 1.1 (0.9-1.1); Prothrombin Time 11.1 Seconds (9.0-12.0)
--- NOTE | 2021-10-05 11:29 | CT Scan Report ---
CT cervical spine wo con CLINICAL HISTORY: fall . Patient on eloquence. Neck pain. COMPARISON STUDY: 02/04/2021 TECHNIQUE: Standard CT of the Cervical Spine was performed without IV contrast. A dose lowering te chnique was utilized adhering to the principles of ALARA. FINDINGS: Bones: The bones are osteopenic. There is no evidence for an acute fracture or malalignment. The heig hts of the vertebral bodies are maintained. The vertebral bodies are in anatomic alignment. The odont oid is intact. Degenerative changes are seen at the atlantoaxial articulation. Disc spaces:There is again fusion of the C2 and C3 vertebral bodies and partial fusion at C3-4 water supervisor iorly as well. Moderate to marked disc space narrowing is again seen at C6-7 with endplate sclerosis and osteophyte formation. Mild disc space narrowing is seen involving the remaining disc space levels . Apophyseal joints:Degenerative apophyseal joint disease is also again seen bilaterally. Soft tissues:The prevertebral soft tissues are within normal limits. IMPRESSION: Osteopenia with no acute abnormality. Degenerative disc and degenerative joint disease ar e again seen. ACT 112: Negative or not required by law. Electronically signed by: Wilmer Burnham M.D. 10/05/2021 11:28 AM
[2021-10-05 11:31] LABS: Acanthocytes 1+; Basophils # (auto) 0.01 K/uL (0-0.2); Basophils % (auto) 0.1 %; Immature Granulocytes # (auto) 0.03 K/uL (0.00-0.02); Immature Granulocytes % (auto) 0.3 %; Lymphocytes # (auto) 0.69 K/uL (1.2-3.4); Lymphocytes % (auto) 6.1 %; Monocytes # (auto) 0.52 K/uL (0.11-0.59); Monocytes % (auto) 4.6 %; Neutrophils # (auto) 10.08 K/uL (1.4-6.5); Neutrophils % (auto) 88.9 %
--- NOTE | 2021-10-05 11:40 | XRay Report ---
XR chest 1V portable CLINICAL HISTORY: fall. Evaluate cardiopulmonary status COMPARISON STUDY: 03/09/2021 TECHNIQUE: 1 view of the chest FINDINGS: Single frontal view of the chest demonstrates the heart size to be at the upper limits of normal to m ildly enlarged status post previous cardiothoracic surgery and pacer placement. The lungs are clear o f alveolar opacities. There is no evidence for pleural effusion. There is no evidence for vascular co ngestion. There is no acute osseous pathology. IMPRESSION: No acute cardiopulmonary disease. ACT 112: Negative or not required by law. Electronically signed by: Wilmer Burnham M.D. 10/05/2021 11:39 AM
--- NOTE | 2021-10-05 11:43 | XRay Report ---
XR hip LT 2V w pelvis CLINICAL HISTORY: fall, pain. COMPARISON STUDY: No previous studies for comparison. TECHNIQUE: AP pelvis and 2 left hip views FINDINGS: Bones: There is a displaced, transcervical fracture of the left femoral neck. The femoral shaft is rosales periorly displaced in relation to the femoral head. Coxa varus deformity is present. The left femoral head maintains its anatomic position within the acetabulum. There is no lytic or blastic lesion. Joints: The right hip joint space is mildly narrowed. The remaining bones are in anatomic alignment. Soft tissues: There is no focal soft tissue abnormality. There is no radiopaque foreign body. IMPRESSION: Evidence for a displaced, transcervical fracture of the left femoral neck. ACT 112: Negative or not required by law. Electronically signed by: Wilmer Burnham M.D. 10/05/2021 11:41 AM
[2021-10-05 11:45] LABS: Albumin Level 3.9 gm/dl (3.4-5.0); BUN Creatinine Ratio 21.9 (10-20); Calcium 9.5 mg/dl (8.5-10.1); Creatinine Clr Calc Pharmacy 28.1 ml/min; Est GFR (African American) 42.9 ml/min; Magnesium 2.3 mg/dl (1.8-2.4); Potassium 5.1 mmol/L (3.5-5.1)
[2021-10-05] MEDS ORDERED: ACETAMINOPHEN 1,000 MG/100 ML VIAL IV STA (11:46)
[2021-10-05] MEDS ORDERED: SODIUM CHLORIDE 0.9% 1000ML 500 ML IV ONE (11:46)
[2021-10-05 11:59] LABS: Bilirubin,Total 0.7 mg/dl (0.2-1); Globulin 4.1 gm/dl (2.5-4.0); Thyroid Stimulating Hormone 0.979 uIu/ml (0.300-4.500); Troponin I 0.111 ng/ml (0-0.045)
--- NOTE | 2021-10-05 13:06 | Orthopedic Consultation ---
Date of Consultation October 05, 2021 Assessment & Plan (1) Closed fracture of left hip: Patient has evidence of a left subcapital femoral neck fracture with displacement. Due to these findings surgical intervention is recommended. He will be admitted by the hospitalist service for medical care. I will discuss findings with Dr. Eng and we will plan to do a hemiarthroplasty of his left hip in the operating room at [facility] [address] on October 06, 2021. He does understand the risks of surgery which include but are not limited to infection, pain, bleeding, scarring, nerve and blood vessel damage, wound problems, weakness, stiffness, incomplete relief of symptoms, hardware failure, fracture, loosening, wear, arthritis, dislocation, heart attack, stroke, blood clots, embolisms, . Informed consent will be obtained later today by Dr. Eng. He will be bedrest for now until surgery. Postoperative course was discussed briefly with the patient which would include early mobility and getting up with his walker. He states that his power of trial attorney is his [id number] but most of the time he signed all of his forms. He needs to be n.p.o. after midnight and we will hold his Eliquis for now in preparation for surgery. We will await hospitalist recommendations for clearance. Patient understands and agrees with the plan. He will be seen by Dr. Eng later today. History of Present Illness Reason for Consultation: Left hip fracture History of Present Illness Patient is a pleasant 86-year-old male who is a resident of [facility]. He states that last evening he fell while walking. He does ambulate with a walker normally. He states that he had a lot of pain and was unable to get up and laid in bed until this morning. When he tried to get up this morning he again had a lot of pain in his left hip. He was brought to the emergency room as he was unable to weight-bear. While in the emergency room and he had x-rays of his left hip showing a left femoral neck fracture. Due to these findings surgical orthopedic consultation was obtained. He was also seen by the hospitalist service is was admitted to [facility] [address] for care. He denies any other injuries at the time of his fall. He states that he did bump his head though. He denies ever having previous hip pain. He states he got a well fairly well with a walker prior to the fall. He denies any numbness or tingling. Allergies Allergy/AdvReac Type Severity Reaction Status Date / Time No Known Allergies Allergy Verified 07/14/21 13:16 Home Medications Medication Instructions Recorded Confirmed Type aspirin 81 mg tablet,delayed 81 mg PO QAM 12/31/19 10/05/21 History release bimatoprost 0.01 % eye drops 1 drp OPB HS 12/31/19 10/05/21 History (Rosibel) brimonidine 0.2 % eye drops 1 drp OPL TID 12/31/19 10/05/21 History dorzolamide 22.3 mg-timolol 6.8 1 drp OPL BID 12/31/19 10/05/21 History mg/mL eye drops metformin 500 mg tablet 500 mg PO BIDM 12/31/19 10/05/21 History carvedilol 3.125 mg tablet 3.125 mg PO BID 02/04/21 10/05/21 History cyanocobalamin (vitamin B-12) 1,000 mcg PO QAM 02/04/21 10/05/21 History 1,000 mcg tablet losartan 25 mg tablet 25 mg PO QAM #30 tab 03/05/21 10/05/21 Rx isosorbide mononitrate 30 mg 30 mg PO QAM #30 tab 03/11/21 10/05/21 Rx tablet,extended release 24 hr apixaban 2.5 mg tablet (Eliquis) 2.5 mg PO BID 05/23/21 10/05/21 History folic acid 1 mg tablet 1 mg PO HS 05/23/21 10/05/21 History furosemide 40 mg tablet 40 mg PO QAM 05/23/21 10/05/21 History iron,carbonyl 65 mg-vitamin C 125 1 tab PO 3XWK 05/23/21 10/05/21 History mg tablet,delayed release (Vitron-C) potassium chloride 20 mEq 10 meq PO QAM 05/23/21 10/05/21 History tablet,extended release(part/cryst) (Klor-Con M) atorvastatin 40 mg tablet 40 mg PO QAM 07/14/21 10/05/21 History nitroglycerin 0.4 mg sublingual 0.4 mg SUBLINGUAL UD PRN 07/14/21 10/05/21 History tablet pantoprazole 40 mg tablet,delayed 40 mg PO BID 07/14/21 10/05/21 History release potassium chloride 10 mEq 5 meq PO HS 07/14/21 10/05/21 History tablet,extended release (Klor-Con) Patient History Medical History Anemia Aortic stenosis Atrial fibrillation on eliquis bid--follows with Dr. Layla Carmichael CAD (coronary artery disease) CHF (congestive heart failure) Diabetes mellitus, type II NIDDM Glaucoma HLD (hyperlipidemia) HTN (hypertension) Mitral regurgitation Neuropathy On anticoagulant therapy eliquis bid Walker as ambulation aid Surgical History History of bilateral cataract extraction History of colonoscopy History of coronary artery bypass graft 2007 in the [facility] History of open reduction and internal fixation (ORIF) procedure left ankle--hardware in place S/P cardiac pacemaker procedure 2016--[facility] Family History Mother Heart disease Father Prostate cancer Other No family history of adverse response to anesthesia Social History Smoking Status: Never smoker Tobacco Type: Pipe Second Hand Exposure: No; Hx Alcohol Use: Yes Alcohol type: wine Hx Substance Use: No Preferred Language: Kuwaiti Communication Ability: Effective Teacher Tutor Required: No Beliefs That Will Affect Care: None marital status: Unknown Current Living Situation: Alone Current Living Situation Comment: Lives alone in an apartment in a [address] building How many Children do You have: 2 Feels Safe at Home: Yes Assistive Devices: Glasses and Walker Review of Systems Review of Systems: Unremarkable. As per HPI. Denies any other issues, please refer to admission H&P for further details. Physical Exam Eyes: PERRL, conjunctivae normal, anicteric sclerae ENMT: external ear and nose normal, oropharynx normal Ears: no hearing impairment Mouth: + dentition abnormality (missing teeth, poor mouth care) Musculoskeletal: Exam of bilateral upper extremities. He is full range of motion of his elbows wrists and shoulders without significant discomfort. He is nontender with palpation over his clavicles or ribs. He has no tenderness over the chest. He has no tenderness over his shoulders, humerus, elbow, forearm, wrist or fingers in either hand. No evidence of trauma such as ecchymosis or skin abrasions. No deformities noted. Exam of his right lower extremity: He has full painless range of motion of his right hip, knee and ankle. Distal pulses are 1+. Distal sensation is normal and equal bilaterally. He has no effusion to the right knee. Again no abrasions or ecchymosis on the right lower extremity. He is nontender over the sacrum or bilateral iliac crest. He has no tenderness over the pubis or pubic symphysis. Exam of his left hip: Upon inspection his left hip is externally rotated and shortened. He has no visible evidence of trauma such as ecchymosis or skin abrasions. He has pain with palpation of his left proximal thigh and groin area. He tolerates gentle range of motion to neutral but does reproduce his pain. He is unable to lift his leg. He has pain with attempts of movement of his left knee. There is no left knee effusion. Nontender over the left calf. Tolerates active ankle dorsiflexion and plantar flexion. Strength is 5/5. Distal pulses of his left lower extremity is 1+. Skin: no rashes, warm and dry Neurologic: moves all extremities and awake Results & Data ([facility]) Vital Signs (Past 12 Hours) Vital Signs Temp Pulse Pulse Resp BP BP Pulse Ox 10/05/21 12:42 62 17 162/63 H 96 10/05/21 10:52 36.7 C 60 22 176/77 H 98 10/05/21 10:51 99 Laboratory Results 10/05/21 10/05/21 10/05/21 Range/Units 11:10 11:04 11:04 WBC (4.8-10.8) K/uL RBC (4.7-6.1) M/uL Hgb (14.0-18.0) g/dL Hct (42-52) % MCV (80-100) fL MCH (25-34) pg MCHC (32-36) g/dL RDW Std Deviation (36.4-46.3) fL RDW Coeff of Libia (11.5-14.5) % Plt Count (130-400) K/uL MPV (7.4-10.4) fL Immature Gran % (Auto) % Neut % (Auto) % Lymph % (Auto) % Wolfe % (Auto) % Eos % (Auto) % Baso % (Auto) % Neut # (Auto) (1.4-6.5) K/uL Lymph # (Auto) (1.2-3.4) K/uL Wolfe # (Auto) (0.11-0.59) K/uL Eos # (Auto) (0-0.5) K/uL Baso # (Auto) (0-0.2) K/uL Immature Gran # (Auto) (0.00-0.02) K/uL Acanthocytes (Spur) PT 11.1 (9.0-12.0) Seconds INR 1.1 (0.9-1.1) Sodium 135 L (136-145) mmol/L Potassium 5.1 (3.5-5.1) mmol/L Chloride 106 (98-107) mmol/L Carbon Dioxide 21 (21-32) mmol/L Anion Gap 8.0 (3-11) BUN 36 H (7-18) mg/dl Creatinine 1.66 H (0.6-1.4) mg/dl Est Cr Clr Drug Dosing 28.1 ml/min Est GFR ( Amer) 42.9 ml/min Est GFR (Non-Af Amer) 37.0 ml/min BUN/Creatinine Ratio 21.9 H (10-20) Glucose 206 H (70-99) mg/dl Calcium 9.5 (8.5-10.1) mg/dl Magnesium 2.3 (1.8-2.4) mg/dl Total Bilirubin 0.7 (0.2-1) mg/dl AST 19 (15-37) U/L ALT 20 (12-78) Alkaline Phosphatase 80 (45-117) U/L Total Creatine Kinase 257 (39-308) U/L Troponin I 0.111 H* (0-0.045) ng/ml Total Protein 8.0 (6.4-8.2) gm/dl Albumin 3.9 (3.4-5.0) gm/dl Globulin 4.1 H (2.5-4.0) gm/dl Albumin/Globulin Ratio 1.0 (0.9-2) TSH 0.979 (0.300-4.500) uIu/ml SARS-CoV-2, RNA, NAAT NEGATIVE (NEGATIVE) Blood Type Antibody Screen 10/05/21 10/05/21 Range/Units 11:04 11:04 WBC 11.33 H (4.8-10.8) K/uL RBC 3.53 L (4.7-6.1) M/uL Hgb 11.2 L (14.0-18.0) g/dL Hct 34.0 L (42-52) % MCV 96.3 (80-100) fL MCH 31.7 (25-34) pg MCHC 32.9 (32-36) g/dL RDW Std Deviation 49.5 H (36.4-46.3) fL RDW Coeff of Libia 14.1 (11.5-14.5) % Plt Count 240 (130-400) K/uL MPV 9.5 (7.4-10.4) fL Immature Gran % (Auto) 0.3 % Neut % (Auto) 88.9 % Lymph % (Auto) 6.1 % Wolfe % (Auto) 4.6 % Eos % (Auto) 0.0 % Baso % (Auto) 0.1 % Neut # (Auto) 10.08 H (1.4-6.5) K/uL Lymph # (Auto) 0.69 L (1.2-3.4) K/uL Wolfe # (Auto) 0.52 (0.11-0.59) K/uL Eos # (Auto) 0.00 (0-0.5) K/uL Baso # (Auto) 0.01 (0-0.2) K/uL Immature Gran # (Auto) 0.03 H (0.00-0.02) K/uL Acanthocytes (Spur) 1+ PT (9.0-12.0) Seconds INR (0.9-1.1) Sodium (136-145) mmol/L Potassium (3.5-5.1) mmol/L Chloride (98-107) mmol/L Carbon Dioxide (21-32) mmol/L Anion Gap (3-11) BUN (7-18) mg/dl Creatinine (0.6-1.4) mg/dl Est Cr Clr Drug Dosing ml/min Est GFR ( Amer) ml/min Est GFR (Non-Af Amer) ml/min BUN/Creatinine Ratio (10-20) Glucose (70-99) mg/dl Calcium (8.5-10.1) mg/dl Magnesium (1.8-2.4) mg/dl Total Bilirubin (0.2-1) mg/dl AST (15-37) U/L ALT (12-78) Alkaline Phosphatase (45-117) U/L Total Creatine Kinase (39-308) U/L Troponin I (0-0.045) ng/ml Total Protein (6.4-8.2) gm/dl Albumin (3.4-5.0) gm/dl Globulin (2.5-4.0) gm/dl Albumin/Globulin Ratio (0.9-2) TSH (0.300-4.500) uIu/ml SARS-CoV-2, RNA, NAAT (NEGATIVE) Blood Type A Negative Antibody Screen NEGATIVE Diagnostic Findings XR hip LT min 2V CLINICAL HISTORY: left hip pain; fracture. Additional imaging required COMPARISON STUDY: 10/05/2021 TECHNIQUE: 2 left hip views FINDINGS: Bones: Compared to the previous examination, there is again evidence for a displaced fracture of the femoral neck. On the current views, it is a displaced subcapital fracture rather than a transcervical fracture. The femoral shaft is again superiorly and anteriorly displaced in relation to the femoral head with coxa varus deformity again seen . There is no lytic or blastic lesion. IMPRESSION: Additional images demonstrate the left hip fracture to be a displaced subcapital fracture. CT cervical spine wo con CLINICAL HISTORY: fall . Patient on eloquence. Neck pain. COMPARISON STUDY: 02/04/2021 TECHNIQUE: Standard CT of the Cervical Spine was performed without IV contrast. A dose lowering technique was utilized adhering to the principles of ALARA. FINDINGS: Bones: The bones are osteopenic. There is no evidence for an acute fracture or malalignment. The heights of the vertebral bodies are maintained. The vertebral bodies are in anatomic alignment. The odontoid is intact. Degenerative changes are seen at the atlantoaxial articulation. Disc spaces:There is again fusion of the C2 and C3 vertebral bodies and partial fusion at C3-4 posteriorly as well. Moderate to marked disc space narrowing is again seen at C6-7 with endplate sclerosis and osteophyte formation. Mild disc space narrowing is seen involving the remaining disc space levels. Apophyseal joints:Degenerative apophyseal joint disease is also again seen bilaterally. Soft tissues:The prevertebral soft tissues are within normal limits. IMPRESSION: Osteopenia with no acute abnormality. 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 -- CT head/brain wo con CLINICAL HISTORY: fall. Patient on eliquis COMPARISON STUDY: 02/04/2021 CT DOSE: 995.74 mGy.cm TECHNIQUE: Standard CT of the Brain was performed without IV contrast. A dose lowering technique was utilized adhering to the principles of ALARA. FINDINGS: Extraaxial space: There is no evidence for subdural hematoma. There are no extra-axial fluid collections. Ventricles and cisterns: The ventricles are again mildly to moderately dilated bilaterally. There is no evidence for midline shift or mass effect. Parenchyma: There is no subarachnoid or intraparenchymal hemorrhage. There is no evidence for an acute infarct or cerebral edema. There is mild cerebral cortical atrophy and decreased attenuation in the periventricular white matter representing remote small vessel disease. There are no gross mass lesions. Osseous structures: There is no evidence for an acute fracture. The visualized paranasal sinuses are clear. The mastoid air cells are clear bilaterally. Soft tissues: There is no evidence for focal soft tissue swelling. IMPRESSION: No acute intracerebral pathology. Cerebral cortical atrophy and remote small vessel disease. XR hip LT 2V w pelvis CLINICAL HISTORY: fall, pain. COMPARISON STUDY: No previous studies for comparison. TECHNIQUE: AP pelvis and 2 left hip views FINDINGS: Bones: There is a displaced, transcervical fracture of the left femoral neck. The femoral shaft is superiorly displaced in relation to the femoral head. Coxa varus deformity is present. The left femoral head maintains its anatomic position within the acetabulum. There is no lytic or blastic lesion. Joints: The right hip joint space is mildly narrowed. The remaining bones are in anatomic alignment. Soft tissues: There is no focal soft tissue abnormality. There is no radiopaque foreign body. IMPRESSION: Evidence for a displaced, transcervical fracture of the left femoral neck XR chest 1V portable CLINICAL HISTORY: fall. Evaluate cardiopulmonary status COMPARISON STUDY: 03/09/2021 TECHNIQUE: 1 view of the chest FINDINGS: Single frontal view of the chest demonstrates the heart size to be at the upper limits of normal to mildly enlarged status post previous cardiothoracic surgery and pacer placement. The lungs are clear of alveolar opacities. There is no evidence for pleural effusion. There is no evidence for vascular congestion. There is no acute osseous pathology. IMPRESSION: No acute cardiopulmonary disease. (1) Closed fracture of left hip Encounter type: initial encounter Qualified Code(s): S72.002A - Fracture of unspecified part of neck of left femur, initial encounter for closed fracture
[2021-10-05] MEDS ORDERED: ISOSORBIDE MONO EXTENDED REL 30 MG TABCR PO ONE (13:30)
[2021-10-05] MEDS ORDERED: carvediloL 3.125 MG TAB PO ONE (13:30)
--- NOTE | 2021-10-05 13:30 | History & Physical Report ---
Date of Service October 05, 2021 Assessment & Plan (1) Closed fracture of left hip: (2) Fall: Plan: Left displaced subcapital femoral neck fracture Patient is 86-year-old male with PMH DM II atrial fibrillation on chronic Eliquis, h/o symptomatic bradycardia s/p pacemaker, CKD III, chronic diastolic CHF, EF 50% in 02/2021, moderate mitral regurgitation and aortic regurgitation presented to ER with complaint of mechanical fall on 10/04/21 and left hip pain. Unable to get off floor all night. Denies LOC, CP, SOB, dizziness. In ER vitals stable, troponin 0.1, paced rhythm on EKG. CK: 257 Left hip x-ray: Displaced transcervical fracture left femoral neck. Additional additional images obtained: Demonstrate left hip fracture to be displaced subcapital fracture CT head and C-spine without acute abnormality. Chest x-ray unremarkable NPO midnight Ortho consult, recommend surgical intervention Will trend troponin, obtain echo to determine cardiac clearance for surgery CBC, BMP in am (3) Elevated troponin I level: Plan: Troponin: 0.1, CK: 257. Paced rhythm on EKG Patient denies chest pain or shortness of breath Trend troponin EKG a.m. Obtain echo If troponins continue to elevate, will obtain cardiology consult for assistance with cardiac clearance for surgery (4) CAD (coronary artery disease): Plan: S/p CABG Continue aspirin, atorvastatin, carvedilol (5) CKD (chronic kidney disease), stage III: Plan: Cr: 1.6. Baseline 1.3-1.5 Monitor renal functions, avoid nephrotoxic agents when possible (6) Atrial fibrillation: Plan: Chronic atrial fibrillation. On Eliquis Hold Eliquis Start IV heparin Continue carvedilol (7) CHF (congestive heart failure): Plan: History chronic systolic, diastolic heart failure. EF 50% in 02/2021 Appears euvolemic Hold Lasix currently, monitor volume status closely (8) Diabetes mellitus, type II: Plan: A1c: 6.0 on 05/04/2021 Hold Metformin NovoLog sliding scale per protocol A1c in a.m. (9) Bradycardia: (10) S/P cardiac pacemaker procedure: Plan: History symptomatic bradycardia s/p pacemaker (11) HTN (hypertension): Plan: Continue losartan, carvedilol (12) HLD (hyperlipidemia): Plan: Continue atorvastatin (13) Chronic anemia: Plan: Hgb: 11.2. At approximate baseline DVT Prophylaxis -IV heparin DNR/DNI as per discussion with pt Follows with Dr Vineet Haney for routine care Pt was seen and care coordinated with Dr Medel. See addendum History of Present Illness Chief Complaint: Fall, left hip pain Primary Care Provider: Jaelyn Haney MD Patient is 86-year-old male with PMH DM II atrial fibrillation on chronic Eliquis, h/o symptomatic bradycardia s/p pacemaker, CKD III, chronic diastolic CHF, EF 50% in 02/2021, moderate mitral regurgitation and aortic regurgitation presented to ER with complaint of fall and left hip pain. Patient states last night was getting undressed when his foot got caught causing him to fall and strike the back of his head. Patient denies any LOC, dizziness, chest pain, shortness of breath. He states he was unable to get off the floor all night. Complains of pain to left hip with attempted range of motion or walking. Denies any other known injury. Denies fever/chills, diaphoresis, N/V/D/C, MAYER, vision c hanges, neck pain, orthopnea, palpitations, cough, sore throat, choking, otalgia, rhinorrhea, abdominal pain, paresthesias, extremity edema, rashes, urinary symptoms. In ER vitals stable, troponin 0.1, paced rhythm on EKG. Left hip x-ray: Displaced transcervical fracture left femoral neck. CT head and C-spine without acute abnormality. Chest x-ray unremarkable. Allergies Allergy/AdvReac Type Severity Reaction Status Date / Time No Known Allergies Allergy Verified 07/14/21 13:16 Home Medications Medication Instructions Recorded Confirmed Type aspirin 81 mg tablet,delayed 81 mg PO QAM 12/31/19 10/05/21 History release bimatoprost 0.01 % eye drops 1 drp OPB HS 12/31/19 10/05/21 History ([place]) brimonidine 0.2 % eye drops 1 drp OPL TID 12/31/19 10/05/21 History dorzolamide 22.3 mg-timolol 6.8 1 drp OPL BID 12/31/19 10/05/21 History mg/mL eye drops metformin 500 mg tablet 500 mg PO BIDM 12/31/19 10/05/21 History carvedilol 3.125 mg tablet 3.125 mg PO BID 02/04/21 10/05/21 History cyanocobalamin (vitamin B-12) 1,000 mcg PO QAM 02/04/21 10/05/21 History 1,000 mcg tablet losartan 25 mg tablet 25 mg PO QAM #30 tab 03/05/21 10/05/21 Rx isosorbide mononitrate 30 mg 30 mg PO QAM #30 tab 03/11/21 10/05/21 Rx tablet,extended release 24 hr apixaban 2.5 mg tablet (Eliquis) 2.5 mg PO BID 05/23/21 10/05/21 History folic acid 1 mg tablet 1 mg PO HS 05/23/21 10/05/21 History furosemide 40 mg tablet 40 mg PO QAM 05/23/21 10/05/21 History iron,carbonyl 65 mg-vitamin C 125 1 tab PO 3XWK 05/23/21 10/05/21 History mg tablet,delayed release (Vitron-C) potassium chloride 20 mEq 10 meq PO QAM 05/23/21 10/05/21 History tablet,extended release(part/cryst) (Klor-Con M) atorvastatin 40 mg tablet 40 mg PO QAM 07/14/21 10/05/21 History nitroglycerin 0.4 mg sublingual 0.4 mg SUBLINGUAL UD PRN 07/14/21 10/05/21 History tablet potassium chloride 10 mEq 5 meq PO HS 07/14/21 10/05/21 History tablet,extended release (Klor-Con) Past Med/Surg History Medical History (Updated 10/05/21 @ 16:18 by Mabel Hill PA-C) Anemia Aortic stenosis Atrial fibrillation on eliquis bid--follows with Dr. Layla Carmichael CAD (coronary artery disease) CHF (congestive heart failure) CKD (chronic kidney disease), stage III Diabetes mellitus, type II NIDDM Glaucoma HLD (hyperlipidemia) HTN (hypertension) Mitral regurgitation Neuropathy On anticoagulant therapy eliquis bid Walker as ambulation aid Surgical History History of bilateral cataract extraction History of colonoscopy History of coronary artery bypass graft 2007 in the [place] History of open reduction and internal fixation (ORIF) procedure left ankle--hardware in place S/P cardiac pacemaker procedure 2017--[facility] Family History Mother Heart disease Father Prostate cancer Other No family history of adverse response to anesthesia Social History Smoking Status: Former smoker Tobacco Type: Pipe Second Hand Exposure: No; Hx Alcohol Use: Yes Alcohol type: wine Alcohol Intake Frequency: Monthly or Less Hx Substance Use: No Preferred Language: Swedish Communication Ability: Effective [employer] Work[employer] Required: No Beliefs That Will Affect Care: None marital status: Unknown Current Living Situation: Alone Current Living Situation Comment: Lives alone in an apartment in a [address] building How many Children do You have: 2 Feels Safe at Home: Yes Assistive Devices: Glasses and Walker Review of Systems Review of Systems: All systems reviewed & are unremarkable except as noted in HPI & below Physical Exam Physical Exam: General: no acute distress, WDWN elderly male Head: normocephalic, atraumatic Eyes: PERRL, EOM's intact, conjunctiva non-injected, anicteric ENT: normal inspection external ears, nose, mucous membranes moist Neck: supple, trachea midline Lungs: clear, no respiratory distress, no wheezing/rhonchi/rales CV: RRR, + murmur, no pretibial edema Abd: normal BS, soft, non-tender Ext: no cyanosis, no calf tenderness; LLE: left leg shortened and externally rotated, sensation to light touch intact, distal pulses intact Neuro: A&O x 3, no focal deficits noted, normal affect Skin: warm, dry Results & Data Results & Data ([facility]) Vital Signs (Past 12 Hours) Vital Signs Temp Pulse Pulse Resp BP BP Pulse Ox 10/05/21 12:42 62 17 162/63 H 96 10/05/21 10:52 36.7 C 60 22 176/77 H 98 10/05/21 10:51 99 Laboratory Results Short CBC 10/05/21 Range/Units 11:04 WBC 11.33 H (4.8-10.8) K/uL Hgb 11.2 L (14.0-18.0) g/dL Hct 34.0 L (42-52) % Plt Count 240 (130-400) K/uL BMP 10/05/21 11:04 Sodium 135 L Potassium 5.1 Chloride 106 Carbon Dioxide 21 BUN 36 H Creatinine 1.66 H Glucose 206 H Calcium 9.5 Cardiac Enzymes 10/05/21 Range/Units 11:04 Total Creatine Kinase 257 (39-308) U/L Troponin I 0.111 H* (0-0.045) ng/ml Liver Function 10/05/21 Range/Units 11:04 Total Bilirubin 0.7 (0.2-1) mg/dl AST 19 (15-37) U/L ALT 20 (12-78) Alkaline Phosphatase 80 (45-117) U/L Albumin 3.9 (3.4-5.0) gm/dl Diagnostic Findings Chest X-Ray 10/05/21 10:47 XR chest 1V portable CLINICAL HISTORY: fall. Evaluate cardiopulmonary status COMPARISON STUDY: 03/09/2021 TECHNIQUE: 1 view of the chest FINDINGS: Single frontal view of the chest demonstrates the heart size to be at the upper limits of normal to mildly enlarged status post previous cardiothoracic surgery and pacer placement. The lungs are clear of alveolar opacities. There is no evidence for pleural effusion. There is no evidence for vascular congestion. There is no acute osseous pathology. IMPRESSION: No acute cardiopulmonary disease. ACT 112: Negative or not required by law. Electronically signed by: Wilmer Burnham M.D. 10/05/2021 11:39 AM Hip/Pelvis X-Ray 10/05/21 10:47 XR hip LT 2V w pelvis CLINICAL HISTORY: fall, pain. COMPARISON STUDY: No previous studies for comparison. TECHNIQUE: AP pelvis and 2 left hip views FINDINGS: Bones: There is a displaced, transcervical fracture of the left femoral neck. The femoral shaft is superiorly displaced in relation to the femoral head. Coxa varus deformity is present. The left femoral head maintains its anatomic position within the acetabulum. There is no lytic or blastic lesion. Joints: The right hip joint space is mildly narrowed. The remaining bones are in anatomic alignment. Soft tissues: There is no focal soft tissue abnormality. There is no radiopaque foreign body. IMPRESSION: Evidence for a displaced, transcervical fracture of the left femoral neck. ACT 112: Negative or not required by law. Electronically signed by: Wilmer Burnham M.D. 10/05/2021 11:[address] 10/05/21 10:48 CT cervical spine wo con CLINICAL HISTORY: fall . Patient on eloquence. Neck pain. COMPARISON STUDY: 02/04/2021 TECHNIQUE: Standard CT of the Cervical Spine was performed without IV contrast. A dose lowering technique was utilized adhering to the principles of ALARA. FINDINGS: Bones: The bones are osteopenic. There is no evidence for an acute fracture or malalignment. The heights of the vertebral bodies are maintained. The vertebral bodies are in anatomic alignment. The odontoid is intact. Degenerative changes are seen at the atlantoaxial articulation. Disc spaces:There is again fusion of the C2 and C3 vertebral bodies and partial fusion at C3-4 posteriorly as well. Moderate to marked disc space narrowing is again seen at C6-7 with endplate sclerosis and osteophyte formation. Mild disc space narrowing is seen involving the remaining disc space levels. Apophyseal joints:Degenerative apophyseal joint disease is also again seen bilaterally. Soft tissues:The prevertebral soft tissues are within normal limits. IMPRESSION: Osteopenia with no acute abnormality. 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 ACT 112: Negative or not required by law. Electronically signed by: Wilmer Burnham M.D. 10/05/2021 11:[address] 10/05/21 10:48 CT head/brain wo con CLINICAL HISTORY: fall. Patient on eliquis COMPARISON STUDY: 02/04/2021 CT DOSE: 995.74 mGy.cm TECHNIQUE: Standard CT of the Brain was performed without IV contrast. A dose lowering technique was utilized adhering to the principles of ALARA. FINDINGS: Extraaxial space: There is no evidence for subdural hematoma. There are no extra-axial fluid collections. Ventricles and cisterns: The ventricles are again mildly to moderately dilated bilaterally. There is no evidence for midline shift or mass effect. Parenchyma: There is no subarachnoid or intraparenchymal hemorrhage. There is no evidence for an acute infarct or cerebral edema. There is mild cerebral cortical atrophy and decreased attenuation in the periventricular white matter representing remote small vessel disease. There are no gross mass lesions. Osseous structures: There is no evidence for an acute fracture. The visualized paranasal sinuses are clear. The mastoid air cells are clear bilaterally. Soft tissues: There is no evidence for focal soft tissue swelling. IMPRESSION: No acute intracerebral pathology. Cerebral cortical atrophy and remote small vessel disease. ACT 112: Negative or not required by law. Electronically signed by: Wilmer Burnham M.D. 10/05/2021 11:24 AM Hip X-Ray 10/05/21 12:44 XR hip LT min 2V CLINICAL HISTORY: left hip pain; fracture. Additional imaging required COMPARISON STUDY: 10/05/2021 TECHNIQUE: 2 left hip views FINDINGS: Bones: Compared to the previous examination, there is again evidence for a displaced fracture of the femoral neck. On the current views, it is a displaced subcapital fracture rather than a transcervical fracture. The femoral shaft is again superiorly and anteriorly displaced in relation to the femoral head with coxa varus deformity again seen . There is no lytic or blastic lesion. IMPRESSION: Additional images demonstrate the left hip fracture to be a displaced subcapital fracture. ACT 112: Negative or not required by law. Electronically signed by: Wilmer Burnham M.D. 10/05/2021 1:03 PM Code Status & VTE Plan VTE Prophylaxis Plan VTE Prophylaxis will be ordered: Yes Supervising Physician Co-Signing Physician Notes Patient is an 85-year-old male with history of diabetes mellitus, atrial fibrillation on chronic anticoagulation with Eliquis and other medical problems presents with history of fall resulting in left hip pain. Patient does admit to have bumped his head but denies any loss of consciousness, headache, change in vision. Patient was unable to get up from the floor throughout the night. Currently states left hip pain is only with any movement but otherwise denies any chest pain, shortness of breath, dizziness, nausea, abdominal pain. Please review HPI for complete details of presentation. Blood work suggestive of mild leukocytosis 11.3K, creatinine 1.66, mild troponin elevation 0.11, glucose elevated at 206. Imaging studies suggestive of displaced left femoral neck fracture. On exam patient is moderately built and nourished, no apparent distress, normocephalic atraumatic, lungs are clear to auscultation, normal breath sounds,+ pacer, no pedal edema, + murmur, abdomen soft, nontender, normal bowel sounds, alert, awake, oriented, grossly no focal deficits. Left lower extremity externally rotated, mild tenderness on palpation of the left hip. Closed left hip fracture secondary to fall. Will hold his Eliquis and start on IV heparin for anticoagulation. Pain control. Fall precautions. Orthopedics consulted. N.p.o. after midnight. Will trend troponins to rule out NSTEMI. Continue home medications including aspirin, statin, beta-indigo. Will consider cardiology evaluation if troponin continues to rise. Will check resting echo. I personally reviewed the record. Patient is interviewed and examined at bedside. Patient's care is coordinated with Mabel Mix. Please refer to the documentation above for details of patient's presentation and for discussion of other issues. (1) CHF (congestive heart failure) Heart failure type: other Qualified Code(s): I50.9 - Heart failure, unspecified (2) HTN (hypertension) Hypertension type: unspecified Qualified Code(s): I10 - Essential (primary) hypertension (3) Fall Encounter type: initial encounter Qualified Code(s): W19.XXXA - Unspecified fall, initial encounter (4) Closed fracture of left hip Encounter type: initial encounter Qualified Code(s): S72.002A - Fracture of unspecified part of neck of left femur, initial encounter for closed fracture
[2021-10-05] MEDS ORDERED: LOSARTAN POTASSIUM 25 MG TAB PO ONE (13:31)
--- NOTE | 2021-10-05 16:16 | Electrocardiogram Report ---
Test Reason : Blood Pressure : / mmHG Vent. Rate : 067 BPM Atrial Rate : 067 BPM P-R Int : 000 ms QRS Dur : 156 ms QT Int : 482 ms P-R-T Axes : 053 -70 109 degrees QTc Int : 509 ms Poor data quality, interpretation may be adversely affected Ventricular-paced rhythm with occasional Premature ventricular complexes Abnormal ECG When compared with ECG of 23-MAY-2021 20:59, Premature ventricular complexes are now Present Vent. rate has increased BY 7 BPM Confirmed by Eric Hernandez ([id number]) on 10/05/2021 4:15:39 PM Referred By: REFERRED SELF Confirmed By:Eric Hernandez
[2021-10-05] MEDS ORDERED: GLUCOSE 40% GEL 15 GM TUBE PO PRN (16:21)
[2021-10-05] MEDS ORDERED: DEXTROSE 50% 50 ML SYRINGE IV PRN (16:21)
[2021-10-05] MEDS ORDERED: traMADol HCL 50 MG TABLET PO PRN ×2 (16:21)
[2021-10-05] MEDS ORDERED: GLUCOSE 10 TABS/TUBE PO PRN (16:21)
[2021-10-05] MEDS ORDERED: Heparin IV Adult Wt-Based Standard *NO* Bolus Protocol IV ONE (16:21)
[2021-10-05] MEDS ORDERED: HYDROmorphone INJ 0.5 MG/0.5 ML SYR IV PRN ×2 (16:21)
[2021-10-05] MEDS ORDERED: MAGNESIUM HYDROXIDE SUSP 30 ML UDC PO PRN (16:21)
[2021-10-05] MEDS ORDERED: NALOXONE HCL 0.4 MG/1 ML VIAL/CARP IV PRN ×2 (16:21)
[2021-10-05] MEDS ORDERED: NON-FORMULARY MEDICATION (Iron,Carbonyl-Vitamin C [Vitron-C] 65 mg iron- 125 mg tablet,del PO SCH (16:21)
[2021-10-05] MEDS ORDERED: bisacodyL 10 MG SUPP PR PRN (16:21)
[2021-10-05] MEDS ORDERED: ONDANSETRON INJ 2 MG/ML 2 ML VIAL IV PRN (16:21)
[2021-10-05] MEDS ORDERED: CARBOHYDRATES FOR HYPOGLYCEMIA PO PRN (16:21)
[2021-10-05] MEDS ORDERED: ACETAMINOPHEN 325 MG TAB PO PRN (16:21)
[2021-10-05] MEDS ORDERED: POLYETHYLENE (MIRALAX) 17 GM PACK PO PRN (16:21)
[2021-10-05] MEDS ORDERED: GLUCAGON FOR INJ 1 MG VIAL SQ PRN (16:21)
[2021-10-05] MEDS ORDERED: NITROGLYCERIN SL 0.4 MG/TAB TAB SL PRN (16:21)
[2021-10-05] MEDS ORDERED: HEPARIN 25000 UNIT/500 ML D5W IV ONE (16:29)
[2021-10-05] MEDS: HEPARIN SODIUM/DEXTROSE 25,000 UNITS/500 ML BAG IV SCH (16:42)
[2021-10-05] MEDS ORDERED: INSULIN ASPART 100 UNITS/ML 3 ML PEN SC SCH (17:00)
[2021-10-05] MEDS ORDERED: INSULIN ASPART 100 UNITS/ML VIAL SC SCH (18:00)
[2021-10-05] MEDS: INSULIN ASPART PER UNIT SC SCH (18:39)
[2021-10-05 20:16] LABS: Appearance Urine Clear (Clear); Bacteria Urine Automated Negative (Negative); Bilirubin Urine Negative (Negative); Blood Urine Negative (Negative); Color Urine Yellow; Glucose Urine UA Negative (Negative); Ketones Urine Trace (Negative); Leukocyte Esterase Urine Negative (Negative); Nitrite Urine Negative (Negative); Protein Urine Trace (Negative); RBC Urine Automated 0-4 /hpf (0-4); Specific Gravity Urine 1.019 (1.000-1.030); Urobilinogen Urine Negative (Negative)
[2021-10-05] MEDS: BIMATOPROST 0.01% OP SOLN 2.5 ML BTL OPB SCH (21:33)
[2021-10-05] MEDS: BRIMONIDINE TARTRATE 0.2% 5ML OPL SCH (21:34)
[2021-10-05] MEDS: DOCUSATE SODIUM/SENNA 50/8.6MG TAB PO SCH (21:34)
[2021-10-05] MEDS: carvediloL 3.125 MG TAB PO SCH (21:34)
[2021-10-05] MEDS: DORZOLAMIDE/TIMOLOL 22.3/6.8MG/ML 10 ML BTL OPL SCH (21:35)
[2021-10-05] MEDS: FOLIC ACID 1 MG TAB PO SCH (21:35)
[2021-10-05 23:01] LABS: Partial Thromboplastin Ratio 3.5
[2021-10-05 23:03] LABS: Partial Thromboplastin Time 91.7 Seconds (21.0-31.0)
[2021-10-06] MEDS: INSULIN ASPART PER UNIT SC SCH ×4 (00:11→18:27)
[2021-10-06] MEDS ORDERED: ceFAZolin 2000MG 2,000 MG/15 ML SYR IV SCH ×2 (06:00)
[2021-10-06] MEDS ORDERED: TRANEXAMIC ACID / 0.7% NACL 1,000 MG/100 ML BAG IV SCH ×2 (06:00→06:30)
[2021-10-06] MEDS ORDERED: BUPIVACAINE 0.5 % 5 MG/1 ML PF 10ML VIAL ONE (06:19)
[2021-10-06 06:38] LABS: Hematocrit (blood only) 32.2 % (42-52); Hemoglobin 10.5 g/dL (14.0-18.0); Mean Corpuscular Hemoglobin 31.7 pg (25-34); Mean Corpuscular Hgb Conc 32.6 g/dL (32-36); Mean Corpuscular Volume 97.3 fL (80-100); Mean Platelet Volume 9.5 fL (7.4-10.4); Platelet Count 223 K/uL (130-400); RDW Coefficient of Variation 14.5 % (11.5-14.5); RDW Standard Deviation 51.1 fL (36.4-46.3); Red Blood Count 3.31 M/uL (4.7-6.1)
[2021-10-06 06:59] LABS: Partial Thromboplastin Ratio 4.3
[2021-10-06 07:24] LABS: Partial Thromboplastin Time 112.5 Seconds (21.0-31.0)
[2021-10-06 07:33] LABS: BUN Creatinine Ratio 28.2 (10-20); Calcium 9.2 mg/dl (8.5-10.1); Creatinine Clr Calc Pharmacy 39.7 ml/min; Est GFR (African American) 55.1 ml/min; Est GFR (Non-African American) 47.5 ml/min; Potassium 4.3 mmol/L (3.5-5.1)
[2021-10-06 07:44] LABS: Estimated Average Glucose 134 mg/dl; Hemoglobin A1C 6.3 % (4.5-5.6)
[2021-10-06] MEDS ORDERED: MIDAZOLAM HCL 1 MG/ML 2ML VIAL ONE (07:52)
--- NOTE | 2021-10-06 08:47 | Orthopedic Progress Note ---
Date of Service October 06, 2021 Assessment & Plan (1) Elevated troponin I level: (2) Closed fracture of left hip: Plan: I spoke with Dr. Thompson, internal medicine. She said due to his rising troponins, he is not cleared for surgery, and will need a cardiology consult. I relayed this message to the patient. Once he is cleared for surgery, either Dr. Eng, myself, or one of our other orthopaedic surgery colleagues will perform his surgery, which will be a left hip hemiarthroplasty. He understands that he is a high risk for medical complication from surgery due to his cardiac comorbidities. Once a new surgical time is established, he will need his he adore drip held at least 6 hours before the planned starting time. Decision to restart his heparin drip this morning will be determined by internal medicine (3) Aortic stenosis: Plan: I spoke with Dr. Thompson, internal medicine. She said due to his rising troponins, he is not cleared for surgery, and will need a cardiology consult. I relayed this message to the patient. Once he is cleared for surgery, either Dr. Eng, myself, or one of our other orthopaedic surgery colleagues will perform his surgery, which will be a left hip hemiarthroplasty. Once a new surgical time is established, he will need his heparin drip held at least 6 hours before the planned starting time. Decision to restart his heparin drip will be determined by internal medicine. Admission and Anticipated Discharge Date Admission Date: October 05, 2021 Subjective Patient seen and examined on AM rounds. I spoke with Dr. Eng about this patient yesterday. He is in the operating room this morning, and attempted to schedule the patient for surgery this afternoon. However, due to shortage of operating room staff, the operating room requested his case be done this morning. I was available to do the surgery so agreed to do his surgery this morning. Overnight, the patient was kept on a Heparin drip which was stopped at 0730 AM. Troponins have risen overnight. This morning, he says his hip is a little sore. Denies chest pain or shortness of breath. Physical Exam Physical Exam: Resting comfortably in bed, supine, in NAD. Alert and oriented x 3. L LE: shortened, externally rotated. Wiggles toes. Distally NVI. Skin intact over the hip. Results & Data ([facility]) Vital Signs (Past 12 Hours) Vital Signs Temp Pulse Pulse Pulse Resp BP Pulse Ox 10/06/21 08:00 10/06/21 07:32 36.3 C L 60 20 152/63 H 96 10/06/21 07:19 60 10/06/21 05:42 36.4 C L 60 18 157/61 H 94 10/05/21 23:00 60 10/05/21 21:29 36.4 C L 60 18 167/66 H 97 Pulse Ox 10/06/21 08:00 92 10/06/21 07:32 10/06/21 07:19 10/06/21 05:42 10/05/21 23:00 10/05/21 21:29 (1) Closed fracture of left hip Encounter type: initial encounter Qualified Code(s): S72.002A - Fracture of unspecified part of neck of left femur, initial encounter for closed fracture
[2021-10-06] MEDS: carvediloL 3.125 MG TAB PO SCH ×2 (09:30→20:15)
[2021-10-06] MEDS: ISOSORBIDE MONO EXTENDED REL 30 MG TABCR PO SCH (09:30)
[2021-10-06] MEDS: LOSARTAN POTASSIUM 25 MG TAB PO SCH (09:30)
[2021-10-06] MEDS: ATORVASTATIN 40 MG TAB PO SCH (09:30)
[2021-10-06] MEDS: DORZOLAMIDE/TIMOLOL 22.3/6.8MG/ML 10 ML BTL OPL SCH ×2 (09:31→20:15)
[2021-10-06] MEDS: BRIMONIDINE TARTRATE 0.2% 5ML OPL SCH ×3 (09:31→20:14)
--- NOTE | 2021-10-06 09:46 | Cardiology Consultation ---
Date of Consultation October 06, 2021 Assessment & Plan (1) Closed fracture of left hip: (2) Elevated troponin I level: (3) Preop cardiovascular exam: (4) CHF (congestive heart failure): (5) Persistent atrial fibrillation: (6) S/P cardiac pacemaker procedure: (7) CAD (coronary artery disease): (8) History of coronary artery bypass graft: Complex 86-year-old male admitted to [facility] on October 05, 2021 following a mechanical fall with resultant left hip fracture in need of surgical repair. Cardiology consultation requested for preoperative evaluation noting elevated troponin concentration, occurring in the absence of an acute coronary syndrome, asymptomatic. Options discussed with patient. Risks explained. Patient is high risk for necessary procedure. Further cardiac evaluation at this time would not likely reduce risk of perioperative complications and would only delay a necessary procedure. Recommend proceeding with left hip repair. Recommend continuation of carvedilol, isosorbide, and aspirin without perioperative interruption. Recommend holding furosemide and losartan, resuming postoperatively as hemodynamics permit. Anticoagulation to be resumed when determined to be safe with patient notably prescribed reduced dose Eliquis anticoagulation as an outpatient. Supervising Physician Co-Signing Physician Notes Patient seen. Resting comfortably at the time my assessment. Agree with Mr Marks's findings and assessment as noted. History of Present Illness Reason for Consultation: Elevated troponin, preoperative cardiology consultation Requesting Physician: Sergio Attending Physician: Jay History of Present Illness Mr. Delio Padilla is a very pleasant 86-year-old male who was attempting to get dressed and walk at the same time, suffering a mechanical fall. He notes lying on the floor for what seems like forever. He notably struck the back of his head. His [id number] eventually came and found him, calling 911. Patient transported to the [facility]. Imaging revealed a left hip fracture, displaced subcapital fracture. Head CT showed no acute intracerebral pathology, revealing cerebral cortical atrophy and small vessel disease. Chest x-ray showed no acute cardiopulmonary disease. Troponin elevated at 0.111, 0.250, and 0.285 ng/mL. EKG was poor and technical quality, revealing a ventricular paced rhythm with underlying atrial fibrillation. Patient without new/active cardiac symptoms. He describes stable Class II-III [place] [employer] angina pectoris without recent change. Patient specifically denies new or worsening chest discomfort, increased nitroglycerin use, tachypalpitations, or worsening shortness of breath. He was laying completely flat when evaluated this morning around 9:15 AM, denying orthopnea, PND, lower extremity peripheral edema, or supine cough. Notes no associated lightheadedness, dizziness, or syncope with the fall. Denies fevers or chills. Past Medical and Surgical History Coronary artery disease status post CABG in 2007, in [place], unknown graft(s) History of systolic and diastolic congestive heart failure. Symptomatic bradycardia status post permanent pacemaker ([employer] [facility]) placement. Model: Calista PAIGE, SN: [id number]. Atrial lead:[employer] [facility], Model:Tendril STS, SN: [id number]. RV lead: [employer] [facility], Model: Tendril ST, SN: [id number] Atrial fibrillation, first observed in February 2021, persistent, asymptomatic Eliquis anticoagulation, initiated in February 2021, at 2.5 mg twice per day due to age,, renal dysfunction, frailty, history of orthostatic hypotension Moderate valvular heart disease, aortic stenosis and aortic regurgitation, mitral regurgitation, chart history of mitral stenosis Severe pulmonary hypertension Preserved left ventricular systolic function Hypertension, hypertensive heart disease Dyslipidemia Moderately severe bilateral internal carotid artery disease Type 2 diabetes mellitus Chronic kidney disease Neuropathy GERD Large sliding and paraesophageal hiatal hernia Rectal bleeding Anemia History of brain tumor Right eye blindness Cataracts Glaucoma B12 deficiency Colonoscopy with polypectomy Left ankle surgery Admission to [facility] x2 in February 2021 with acute decompensated diastolic heart failure. Family History: Mother with CAD. Father with prostate cancer Social History: Reformed smoker. No smokeless tobacco use. Rare alcohol. No illegal drug use. Complete Review of Systems is as stated above, negative, or noncontributory. Allergies Allergy/AdvReac Type Severity Reaction Status Date / Time No Known Allergies Allergy Verified 07/14/21 13:16 Home Medications Medication Instructions Recorded Confirmed Type aspirin 81 mg tablet,delayed 81 mg PO QAM 12/31/19 10/05/21 History release bimatoprost 0.01 % eye drops 1 drp OPB HS 12/31/19 10/05/21 History (Rosibel) brimonidine 0.2 % eye drops 1 drp OPL TID 12/31/19 10/05/21 History dorzolamide 22.3 mg-timolol 6.8 1 drp OPL BID 12/31/19 10/05/21 History mg/mL eye drops metformin 500 mg tablet 500 mg PO BIDM 12/31/19 10/05/21 History carvedilol 3.125 mg tablet 3.125 mg PO BID 02/04/21 10/05/21 History cyanocobalamin (vitamin B-12) 1,000 mcg PO QAM 02/04/21 10/05/21 History 1,000 mcg tablet losartan 25 mg tablet 25 mg PO QAM #30 tab 03/05/21 10/05/21 Rx isosorbide mononitrate 30 mg 30 mg PO QAM #30 tab 03/11/21 10/05/21 Rx tablet,extended release 24 hr apixaban 2.5 mg tablet (Eliquis) 2.5 mg PO BID 05/23/21 10/05/21 History folic acid 1 mg tablet 1 mg PO HS 05/23/21 10/05/21 History furosemide 40 mg tablet 40 mg PO QAM 05/23/21 10/05/21 History iron,carbonyl 65 mg-vitamin C 125 1 tab PO 3XWK 05/23/21 10/05/21 History mg tablet,delayed release (Vitron-C) potassium chloride 20 mEq 10 meq PO QAM 05/23/21 10/05/21 History tablet,extended release(part/cryst) (Klor-Con M) atorvastatin 40 mg tablet 40 mg PO QAM 07/14/21 10/05/21 History nitroglycerin 0.4 mg sublingual 0.4 mg SUBLINGUAL UD PRN 07/14/21 10/05/21 History tablet potassium chloride 10 mEq 5 meq PO HS 07/14/21 10/05/21 History tablet,extended release (Klor-Con) Patient History Medical History Anemia Aortic stenosis Atrial fibrillation on eliquis bid--follows with Dr. Layla Carmichael CAD (coronary artery disease) CHF (congestive heart failure) CKD (chronic kidney disease), stage III Diabetes mellitus, type II NIDDM Glaucoma HLD (hyperlipidemia) HTN (hypertension) Mitral regurgitation Neuropathy On anticoagulant therapy eliquis bid Walker as ambulation aid Surgical History History of bilateral cataract extraction History of colonoscopy History of coronary artery bypass graft 2007 in the [facility] History of open reduction and internal fixation (ORIF) procedure left ankle--hardware in place S/P cardiac pacemaker procedure 2016--[facility] [facility] Family History Mother Heart disease Father Prostate cancer Other No family history of adverse response to anesthesia Social History Smoking Status: Former smoker Tobacco Type: Pipe Second Hand Exposure: Yes; Do You Dip or Chew Tobacco: No; Hx Alcohol Use: Yes Alcohol type: wine Alcohol Intake Frequency: Monthly or Less Hx Substance Use: No Preferred Language: O[place]i Communication Ability: Effective [employer] Cake Decorator Required: Yes Beliefs That Will Affect Care: None marital status: Single Current Living Situation: Alone and Personal Care Facility Current Living Situation Comment: [facility] How many Children do You have: 0 Other Information That Helps Us Care for You: No Feels Safe at Home: Yes Safety Concerns: Feels Safe At This Time Assistive Devices: None Physical Exam Physical Exam: General: + Pallor. NAD. A&O to person and place. HENT: Normocephalic. Atraumatic. Mouth: Poor dentition. Dried blood. Mucous membranes are dry. Eyes: Conjunctiva pink, sclera pale. Neck: Bilateral carotid bruits. Neck veins are flat. No HJR. Heart: Regular, paced at 60 bpm. Grade II/ systolic murmur. Soft diastolic murmur. No rub. PMI is nondisplaced. Lungs: Clear to auscultation anteriorly and laterally Abdomen: +BS. Soft. Nontender. No masses or organomegaly. Extremities: No significant edema. No clubbing. No cyanosis. Limited neurological examination is without focal deficits. Pulses: radial=2/4, posterior tibial=1/4. Results & Data ([facility]) Vital Signs (Past 12 Hours) Vital Signs Temp Pulse Pulse Pulse Resp BP Pulse Ox 10/06/21 08:00 10/06/21 07:32 36.3 C L 60 20 152/63 H 96 10/06/21 07:19 60 10/06/21 05:42 36.4 C L 60 18 157/61 H 94 10/05/21 23:00 60 Pulse Ox 10/06/21 08:00 92 10/06/21 07:32 10/06/21 07:19 10/06/21 05:42 10/05/21 23:00 Laboratory Results Laboratory Results - last 24 hr 10/05/21 10/05/21 10/05/21 11:04 11:04 11:04 WBC 11.33 H RBC 3.53 L Hgb 11.2 L Hct 34.0 L MCV 96.3 MCH 31.7 MCHC 32.9 RDW Std Deviation 49.5 H RDW Coeff of [place] 14.1 Plt Count 240 MPV 9.5 Immature Gran % (Auto) 0.3 Neut % (Auto) 88.9 Lymph % (Auto) 6.1 [place] % (Auto) 4.6 Eos % (Auto) 0.0 Baso % (Auto) 0.1 Neut # (Auto) 10.08 H Lymph # (Auto) 0.69 L [place] # (Auto) 0.52 Eos # (Auto) 0.00 Baso # (Auto) 0.01 Immature Gran # (Auto) 0.03 H Acanthocytes (Spur) 1+ PT 11.1 INR 1.1 APTT PTT Ratio Sodium Potassium Chloride Carbon Dioxide Anion Gap BUN Creatinine Est Cr Clr Drug Dosing Est GFR ( Amer) Est GFR (Non-Af Amer) BUN/Creatinine Ratio Glucose POC Glucose Estimat Average Glucose Hemoglobin A1c Calcium Magnesium Total Bilirubin AST ALT Alkaline Phosphatase Total Creatine Kinase Troponin I Total Protein Albumin Globulin Albumin/Globulin Ratio 25-OH Vitamin D Total TSH Urine Color Urine Appearance Urine pH Ur Specific [place] Urine Protein Urine Glucose (UA) Urine Ketones Urine Blood Urine Nitrite Urine Bilirubin Urine Urobilinogen Ur Leukocyte Esterase Urine WBC (Auto) Urine RBC (Auto) U Hyaline Cast (Auto) U Epithel Cells (Auto) Urine Bacteria (Auto) Nasal Screen MRSA (PCR) SARS-CoV-2, RNA, NAAT Blood Type A Negative Antibody Screen NEGATIVE 10/05/21 10/05/21 10/05/21 11:04 11:04 11:10 WBC RBC Hgb Hct MCV MCH MCHC RDW Std Deviation RDW Coeff of [place] Plt Count MPV Immature Gran % (Auto) Neut % (Auto) Lymph % (Auto) [place] % (Auto) Eos % (Auto) Baso % (Auto) Neut # (Auto) Lymph # (Auto) [place] # (Auto) Eos # (Auto) Baso # (Auto) Immature Gran # (Auto) Acanthocytes (Spur) PT INR APTT PTT Ratio Sodium 135 L Potassium 5.1 Chloride 106 Carbon Dioxide 21 Anion Gap 8.0 BUN 36 H Creatinine 1.66 H Est Cr Clr Drug Dosing 28.1 Est GFR ( Amer) 42.9 Est GFR (Non-Af Amer) 37.0 BUN/Creatinine Ratio 21.9 H Glucose 206 H POC Glucose Estimat Average Glucose Hemoglobin A1c Calcium 9.5 Magnesium 2.3 Total Bilirubin 0.7 AST 19 ALT 20 Alkaline Phosphatase 80 Total Creatine Kinase 257 Troponin I 0.111 H* Total Protein 8.0 Albumin 3.9 Globulin 4.1 H Albumin/Globulin Ratio 1.0 25-OH Vitamin D Total Pending TSH 0.979 Urine Color Urine Appearance Urine pH Ur Specific [place] Urine Protein Urine Glucose (UA) Urine Ketones Urine Blood Urine Nitrite Urine Bilirubin Urine Urobilinogen Ur Leukocyte Esterase Urine WBC (Auto) Urine RBC (Auto) U Hyaline Cast (Auto) U Epithel Cells (Auto) Urine Bacteria (Auto) Nasal Screen MRSA (PCR) SARS-CoV-2, RNA, NAAT NEGATIVE Blood Type Antibody Screen 10/05/21 10/05/21 10/05/21 17:05 18:00 18:26 WBC RBC Hgb Hct MCV MCH MCHC RDW Std Deviation RDW Coeff of [place] Plt Count MPV Immature Gran % (Auto) Neut % (Auto) Lymph % (Auto) [place] % (Auto) Eos % (Auto) Baso % (Auto) Neut # (Auto) Lymph # (Auto) [place] # (Auto) Eos # (Auto) Baso # (Auto) Immature Gran # (Auto) Acanthocytes (Spur) PT INR APTT PTT Ratio Sodium Potassium Chloride Carbon Dioxide Anion Gap BUN Creatinine Est Cr Clr Drug Dosing Est GFR ( Amer) Est GFR (Non-Af Amer) BUN/Creatinine Ratio Glucose POC Glucose 152 H Estimat Average Glucose Hemoglobin A1c Calcium Magnesium Total Bilirubin AST ALT Alkaline Phosphatase Total Creatine Kinase Troponin I 0.250 H* Total Protein Albumin Globulin Albumin/Globulin Ratio 25-OH Vitamin D Total TSH Urine Color Urine Appearance Urine pH Ur Specific [place] Urine Protein Urine Glucose (UA) Urine Ketones Urine Blood Urine Nitrite Urine Bilirubin Urine Urobilinogen Ur Leukocyte Esterase Urine WBC (Auto) Urine RBC (Auto) U Hyaline Cast (Auto) U Epithel Cells (Auto) Urine Bacteria (Auto) Nasal Screen MRSA (PCR) Negative SARS-CoV-2, RNA, NAAT Blood Type Antibody Screen 10/05/21 10/05/21 10/05/21 19:15 22:31 22:31 WBC RBC Hgb Hct MCV MCH MCHC RDW Std Deviation RDW Coeff of [place] Plt Count MPV Immature Gran % (Auto) Neut % (Auto) Lymph % (Auto) [place] % (Auto) Eos % (Auto) Baso % (Auto) Neut # (Auto) Lymph # (Auto) [place] # (Auto) Eos # (Auto) Baso # (Auto) Immature Gran # (Auto) Acanthocytes (Spur) PT INR APTT 91.7 H* PTT Ratio 3.5 Sodium Potassium Chloride Carbon Dioxide Anion Gap BUN Creatinine Est Cr Clr Drug Dosing Est GFR ( Amer) Est GFR (Non-Af Amer) BUN/Creatinine Ratio Glucose POC Glucose Estimat Average Glucose Hemoglobin A1c Calcium Magnesium Total Bilirubin AST ALT Alkaline Phosphatase Total Creatine Kinase Troponin I 0.285 H* Total Protein Albumin Globulin Albumin/Globulin Ratio 25-OH Vitamin D Total TSH Urine Color Yellow Urine Appearance Clear Urine pH 5.0 Ur Specific [place] 1.019 Urine Protein Trace H Urine Glucose (UA) Negative Urine Ketones Trace H Urine Blood Negative Urine Nitrite Negative Urine Bilirubin Negative Urine Urobilinogen Negative Ur Leukocyte Esterase Negative Urine WBC (Auto) 1-5 Urine RBC (Auto) 0-4 U Hyaline Cast (Auto) 5-10 H U Epithel Cells (Auto) 10-20 H Urine Bacteria (Auto) Negative Nasal Screen MRSA (PCR) SARS-CoV-2, RNA, NAAT Blood Type Antibody Screen 10/06/21 10/06/21 10/06/21 00:01 06:14 06:25 WBC 14.20 H RBC 3.31 L Hgb 10.5 L Hct 32.2 L MCV 97.3 MCH 31.7 MCHC 32.6 RDW Std Deviation 51.1 H RDW Coeff of [place] 14.5 Plt Count 223 MPV 9.5 Immature Gran % (Auto) Neut % (Auto) Lymph % (Auto) [place] % (Auto) Eos % (Auto) Baso % (Auto) Neut # (Auto) Lymph # (Auto) [place] # (Auto) Eos # (Auto) Baso # (Auto) Immature Gran # (Auto) Acanthocytes (Spur) PT INR APTT PTT Ratio Sodium Potassium Chloride Carbon Dioxide Anion Gap BUN Creatinine Est Cr Clr Drug Dosing Est GFR ( Amer) Est GFR (Non-Af Amer) BUN/Creatinine Ratio Glucose POC Glucose 157 H 186 H Estimat Average Glucose Hemoglobin A1c Calcium Magnesium Total Bilirubin AST ALT Alkaline Phosphatase Total Creatine Kinase Troponin I Total Protein Albumin Globulin Albumin/Globulin Ratio 25-OH Vitamin D Total TSH Urine Color Urine Appearance Urine pH Ur Specific [place] Urine Protein Urine Glucose (UA) Urine Ketones Urine Blood Urine Nitrite Urine Bilirubin Urine Urobilinogen Ur Leukocyte Esterase Urine WBC (Auto) Urine RBC (Auto) U Hyaline Cast (Auto) U Epithel Cells (Auto) Urine Bacteria (Auto) Nasal Screen MRSA (PCR) SARS-CoV-2, RNA, NAAT Blood Type Antibody Screen 10/06/21 10/06/21 10/06/21 06:25 06:25 06:25 WBC RBC Hgb Hct MCV MCH MCHC RDW Std Deviation RDW Coeff of [place] Plt Count MPV Immature Gran % (Auto) Neut % (Auto) Lymph % (Auto) [place] % (Auto) Eos % (Auto) Baso % (Auto) Neut # (Auto) Lymph # (Auto) [place] # (Auto) Eos # (Auto) Baso # (Auto) Immature Gran # (Auto) Acanthocytes (Spur) PT INR APTT 112.5 H* PTT Ratio 4.3 Sodium 137 Potassium 4.3 D Chloride 108 H Carbon Dioxide 21 Anion Gap 8.0 BUN 38 H Creatinine 1.35 D Est Cr Clr Drug Dosing 39.7 Est GFR ( Amer) 55.1 Est GFR (Non-Af Amer) 47.5 BUN/Creatinine Ratio 28.2 H Glucose 181 H POC Glucose Estimat Average Glucose 134 Hemoglobin A1c 6.3 H Calcium 9.2 Magnesium Total Bilirubin AST ALT Alkaline Phosphatase Total Creatine Kinase Troponin I Total Protein Albumin Globulin Albumin/Globulin Ratio 25-OH Vitamin D Total TSH Urine Color Urine Appearance Urine pH Ur Specific [place] Urine Protein Urine Glucose (UA) Urine Ketones Urine Blood Urine Nitrite Urine Bilirubin Urine Urobilinogen Ur Leukocyte Esterase Urine WBC (Auto) Urine RBC (Auto) U Hyaline Cast (Auto) U Epithel Cells (Auto) Urine Bacteria (Auto) Nasal Screen MRSA (PCR) SARS-CoV-2, RNA, NAAT Blood Type Antibody Screen Diagnostic Findings [facility] pacemaker interrogation performed last on 07/12/2021 demonstrated appropriate function. Remaining longevity: 4.3 to 7.9 years. + Persistent atrial fibrillation with controlled ventricular response. Ventricular paced >99% of the time. March 03, 2021 TTE Interpretation Summary ([facility], Dr. Rich): Moderate concentric LVH. EF 50 to 55%. Normal RV function. Moderately dilated left atrium. Normal size right atrium. Moderate aortic regurgitation. Moderate aortic stenosis. Moderate mitral regurgitation. Moderate pulmonary hypertension, PASP 35 mmHg. October 05, 2021 TTE Interpretation Summary ([facility], Dr. Navarro): Moderate conc entric LVH. Normal LV wall motion. Normal LV systolic function. Ejection fraction 50 to 55%. Moderate aortic regurgitation. Moderate aortic stenosis. Moderate mitral regurgitation. Moderate tricuspid regurgitation. Moderate to severe pulmonary hypertension with an estimated pulmonary artery systolic pressure of 60 mmHg. Continuous telemetry monitoring reveals a ventricular paced rhythm with underlying atrial fibrillation. (1) CHF (congestive heart failure) Heart failure type: other Qualified Code(s): I50.9 - Heart failure, unspecified (2) Closed fracture of left hip Encounter type: initial encounter Qualified Code(s): S72.002A - Fracture of unspecified part of neck of left femur, initial encounter for closed fracture
[2021-10-06] MEDS ORDERED: Nursing to Pharmacy Communication SCH (13:45)
--- NOTE | 2021-10-06 14:00 | Orthopedic Progress Note ---
Date of Service October 06, 2021 Assessment & Plan (1) Closed fracture of left hip: We discussed the diagnosis and treatment options at bedside. He is well aware that he will likely require surgery for his left hip. The procedure of choice will be a left anterior cemented hip hemiarthroplasty. He understands the risk, benefits, and alternatives to procedure elected proceed. Questions were answered at bedside. His heparin will be stopped 6 hours before the procedure. He is n.p.o. past midnight tonight. We plan on fixing his hip around 7:00 tomorrow morning. Subjective Delio was seen and examined at bedside. Overall is not in too much pain. He was seen by cardiology today and they deemed him a high risk for the procedure but did not feel that further delay would improve his outcome. He is currently on a heparin drip. Review of Systems All systems reviewed & are unremarkable except as noted in HPI & below. Physical Exam Physical examination of the left hip shows his left leg to be shortened and externally rotated. There are no abrasions, lesions, or lacerations of the skin. Constitutional WD/WN, vitals as above Eyes PERRL, conjunctivae normal, anicteric sclerae ENMT external ear and nose normal, oropharynx normal Neck trachea midline, no thyromegaly Respiratory normal respiratory effort Cardiovascular RRR, no murmur, no edema Gastrointestinal (Abdomen) normal bowel sounds, soft, nontender, no hepatosplenomegaly Psychiatric A+Ox3, euthymic affect Results & Data Results & Data Laboratory Results . Diagnostic Findings Left hip and pelvis do show a displaced left subcapital hip fracture. PG Care Time/CCT Total # of Minutes Spent Total Time Spent with Patient: Total time spent is greater than 50% in coordination of care (as documented) at patient's floor/unit and/or counseling patient: Coding Level of Care Code 31552 Subseq Hosp Care Lvl 2 (57 - DECISION FOR SURGERY) Diagnoses Closed fracture of left hip S72.002A Encounter type: initial encounter (1) Closed fracture of left hip Encounter type: initial encounter Qualified Code(s): S72.002A - Fracture of unspecified part of neck of left femur, initial encounter for closed fracture
--- NOTE | 2021-10-06 14:12 | Anesthesiology Consultation ---
Date of Service October 06, 2021 Assessment & Plan (1) Encounter for pre-operative examination: Chart Review Chart Review: Acceptable Risk for Surgery and Patient NOT seen in Pre Admission Testing Consults Requested none Additional Notes Per cardiology evaluation on 10/06/21 - "Patient is high risk for necessary procedure. Further cardiac evaluation at this time would not likely reduce risk of perioperative complications and would only delay a necessary procedure. Recommend proceeding with left hip repair. Recommend continuation of carvedilol, isosorbide, and aspirin without perioperative interruption. Recommend holding furosemide and losartan, resuming postoperatively as hemodynamics permit. Anticoagulation to be resumed when determined to be safe with patient notably prescribed reduced dose Eliquis anticoagulation as an outpatient." Pt was on heparin drip - primary team plans to hold heparin drip starting at midnight for surgical procedure in AM. History Surgery Operation Date: 10/06/21 09:20 Proposed Procedures p Left Hip Hemiarthroplasty - Mike Butler MD Operation Date: 10/07/21 07:00 Proposed Procedures p Left Anterior Hip Total Arthroplasty - Meek Davila DO Height/Weight Height: 5 ft 10 in Weight: 70.1 kg Allergies Allergy/AdvReac Type Severity Reaction Status Date / Time No Known Allergies Allergy Verified 07/14/21 13:16 Medications Home Medications Medication Instructions Recorded Confirmed Last Taken aspirin 81 mg tablet,delayed 81 mg PO QAM 12/31/19 10/05/21 07/20/21 08:00 release bimatoprost 0.01 % eye drops 1 drp OPB HS 12/31/19 10/05/21 07/20/21 21:00 (Rosibel) brimonidine 0.2 % eye drops 1 drp OPL TID 12/31/19 10/05/21 07/21/21 05:30 dorzolamide 22.3 mg-timolol 6.8 1 drp OPL BID 12/31/19 10/05/21 07/21/21 05:30 mg/mL eye drops metformin 500 mg tablet 500 mg PO BIDM 12/31/19 10/05/21 07/20/21 19:00 carvedilol 3.125 mg tablet 3.125 mg PO BID 02/04/21 10/05/21 07/21/21 05:30 cyanocobalamin (vitamin B-12) 1,000 mcg PO QAM 02/04/21 10/05/21 07/21/21 05:30 1,000 mcg tablet losartan 25 mg tablet 25 mg PO QAM #30 tab 03/05/21 10/05/21 07/20/21 05:30 isosorbide mononitrate 30 mg 30 mg PO QAM #30 tab 03/11/21 10/05/21 07/21/21 05:30 tablet,extended release 24 hr apixaban 2.5 mg tablet (Eliquis) 2.5 mg PO BID 05/23/21 10/05/21 10/04/21 folic acid 1 mg tablet 1 mg PO HS 05/23/21 10/05/21 07/20/21 21:00 furosemide 40 mg tablet 40 mg PO QAM 05/23/21 10/05/21 07/20/21 08:00 iron,carbonyl 65 mg-vitamin C 125 1 tab PO 3XWK 05/23/21 10/05/21 07/20/21 08:00 mg tablet,delayed release (Vitron-C) potassium chloride 20 mEq 10 meq PO QAM 05/23/21 10/05/21 07/21/21 05:30 tablet,extended release(part/cryst) (Klor-Con M) atorvastatin 40 mg tablet 40 mg PO QAM 07/14/21 10/05/21 07/20/21 08:00 nitroglycerin 0.4 mg sublingual 0.4 mg SUBLINGUAL UD PRN 07/14/21 10/05/21 Unknown tablet potassium chloride 10 mEq 5 meq PO HS 07/14/21 10/05/21 07/20/21 21:00 tablet,extended release (Klor-Con) Active Medications Generic Name Dose Route Start Last Admin Trade Name Freq PRN Reason Stop Dose Admin Atorvastatin Calcium 40 mg 10/06/21 09:00 10/06/21 09:30 Atorvastatin 40 Mg Tab PO 11/05/21 08:59 40 mg QAM VELASQUEZ Administration Bimatoprost 1 drops 10/05/21 21:00 10/05/21 21:33 Bimatoprost 0.01% Op Soln 2.5 Ml Btl OPB 11/04/21 20:59 1 drops HS VELASQUEZ Administration Brimonidine Tartrate 1 drops 10/05/21 21:00 10/06/21 09:31 Brimonidine Tartrate 0.2% 5ml OPL 11/04/21 20:59 1 drops TID VELASQUEZ Administration Carvedilol 3.125 mg 10/05/21 21:00 10/06/21 09:30 Carvedilol 3.125 Mg Tab PO 11/04/21 20:59 3.125 mg BID VELASQUEZ Administration Dorzolamide/Timolol 1 drops 10/05/21 21:00 10/06/21 09:31 Dorzolamide/Timolol 22.3/6.8mg/Ml 10 Ml Btl OPL 11/04/21 20:59 1 drops BID VELASQUEZ Administration Folic Acid 1 mg 10/05/21 21:00 10/05/21 21:35 Folic Acid 1 Mg Tab PO 11/04/21 20:59 1 mg HS VELASQUEZ Administration Heparin Sodium/Dextrose 25,000 units in 500 mls @ 16 mls/hr 10/05/21 16:21 10/06/21 12:30 Heparin Sodium/Dextrose IV 10/07/21 00:00 800 units/hr .Q24H VELASQUEZ 16 mls/hr Titration Protocol 800 UNITS/HR Insulin Aspart 0 units 10/06/21 12:00 10/06/21 12:04 Insulin Aspart Per Unit SC 11/05/21 11:59 Not Given Q6 VELASQUEZ Isosorbide Mononitrate 30 mg 10/06/21 09:00 10/06/21 09:30 Isosorbide Shelby Extended Rel 30 Mg Tabcr PO 11/05/21 08:59 30 mg QAM VELASQUEZ Administration Losartan Potassium 25 mg 10/06/21 09:00 10/06/21 09:30 Losartan Potassium 25 Mg Tab PO 11/05/21 08:59 25 mg QAM VELASQUEZ Administration Senna/Docusate Sodium 2 tab 10/05/21 21:00 10/05/21 21:34 Docusate Sodium/Senna 50/8.6mg Tab PO 11/04/21 20:59 2 tab HS VELASQUEZ Administration Past Medical History Medical History Anemia Aortic stenosis Atrial fibrillation on eliquis bid--follows with Dr. Layla Carmichael CAD (coronary artery disease) CHF (congestive heart failure) CKD (chronic kidney disease), stage III Diabetes mellitus, type II NIDDM Glaucoma HLD (hyperlipidemia) HTN (hypertension) Mitral regurgitation Neuropathy On anticoagulant therapy eliquis bid Walker as ambulation aid Past Family History Family History Mother Heart disease Father Prostate cancer Other No family history of adverse response to anesthesia Past Surgical History Surgical History History of bilateral cataract extraction History of colonoscopy History of coronary artery bypass graft 2007 in the [facility] History of open reduction and internal fixation (ORIF) procedure left ankle--hardware in place S/P cardiac pacemaker procedure 2017--[facility] Social History Smoking Status: Former smoker tobacco type: pipe Do You Dip or Chew Tobacco: No Hx Alcohol Use: Yes Alcohol type: wine alcohol intake frequency: holidays/special occasions only Hx Substance Use: No substance use type: does not use Physical Exam Vital Signs Last Vital Signs Temp 36.5 C 10/06/21 11:18 Pulse 60 10/06/21 11:18 Resp 16 10/06/21 11:18 BP 150/58 H 10/06/21 11:18 Pulse Ox 92 10/06/21 12:00 Testing Laboratory Results 10/06/21 06:25 10/06/21 06:25 PT 11.1 Seconds (9.0-12.0) 10/05/21 11:04 INR 1.1 (0.9-1.1) 10/05/21 11:04 APTT 112.5 Seconds (21.0-31.0) H* 10/06/21 06:25 Hemoglobin A1c 6.3 % (4.5-5.6) H 10/06/21 06:25 Urine Color Yellow 10/05/21 19:15 Urine Appearance Clear (Clear) 10/05/21 19:15 Urine pH 5.0 (4.5-7.5) 10/05/21 19:15 Ur Specific [place] 1.019 (1.000-1.030) 10/05/21 19:15 Urine Protein Trace (Negative) H 10/05/21 19:15 Urine Glucose (UA) Negative (Negative) 10/05/21 19:15 Urine Ketones Trace (Negative) H 10/05/21 19:15 Urine Nitrite Negative (Negative) 10/05/21 19:15 Ur Leukocyte Esterase Negative (Negative) 10/05/21 19:15 Urine WBC (Auto) 1-5 /hpf (0-5) 10/05/21 19:15 Urine RBC (Auto) 0-4 /hpf (0-4) 10/05/21 19:15 U Hyaline Cast (Auto) 5-10 /lpf (0-5) H 10/05/21 19:15 U Epithel Cells (Auto) 10-20 /lpf (0-5) H 10/05/21 19:15 Urine Bacteria (Auto) Negative (Negative) 10/05/21 19:15 Blood Type A Negative 10/05/21 11:04 Antibody Screen NEGATIVE 10/05/21 11:04 10/06/21 10/06/21 11:21 06:14 POC Glucose 161 H 186 H troponin trend 0.111 -> 0.250 -> 0.285 -> 0.159 Electrocardiogram Date: 10/06/21 ventricular paced rhythm, when compared with ECG 10/05/21 PVCs are no longer present Echocardiogram Date: 10/05/21 EF: 50-55% LV Function: normal RWMA: + none Other Findings: + LVH (moderate, concentric) moderate aortic regurg, moderate aortic stenosis, moderate mitral regurg, moderate tricuspid regurg, moderate to severe pulmonary HTN (estimated pulmonary systolic pressure = 60 mmHg).
--- NOTE | 2021-10-06 15:05 | Hospitalist Progress Note ---
Date of Service October 06, 2021 Assessment & Plan (1) Closed fracture of left hip: (2) Fall: Plan: Left displaced subcapital femoral neck fracture Patient is 86-year-old male with PMH DM II atrial fibrillation on chronic Eliquis, h/o symptomatic bradycardia s/p pacemaker, CKD III, chronic diastolic CHF, EF 50% in 02/2021, moderate mitral regurgitation and aortic regurgitation presented to ER with complaint of mechanical fall on 10/04/21 and left hip pain. Unable to get off floor all night. Denies LOC, CP, SOB, dizziness. In ER vitals stable, troponin 0.1, paced rhythm on EKG. CK: 257 Left hip x-ray: Displaced transcervical fracture left femoral neck. Additional additional images obtained: Demonstrate left hip fracture to be displaced subcapital fracture CT head and C-spine without acute abnormality. Chest x-ray unremarkable Scheduled for OR at 0700 tomorrow, 10/07 NPO @ MN (3) Elevated troponin I level: Plan: Troponin up-trending overnight 0.111 -> 0.250 -> 0.285, placed on IV heparin drip, overnight, now downtrending, CK: 257 Cards evaluated- patient is high risk for procedure but further cardiac eval at this time wound not likely reduce risk of perioperative complications Troponin downtrending today with repeat 0.159, no chest pain Continue IV heparin until midnight, repeat PTT In AM (4) CAD (coronary artery disease): Plan: S/p CABG Continue aspirin, atorvastatin, carvedilol (5) CKD (chronic kidney disease), stage III: Plan: Cr initially 1.6 but returned to baseline today of 1.35 (baseline 1.3-1.5) Monitor renal functions, avoid nephrotoxic agents when possible (6) Atrial fibrillation: Plan: Chronic atrial fibrillation on Eliquis Holding Eliquis, bridging with IV heparin - will hold at midnight in preparation of surgery in AM Continue carvedilol (7) CHF (congestive heart failure): Plan: History chronic systolic, diastolic heart failure. EF 50% in 02/2021 Appears euvolemic Hold Lasix currently, monitor volume status closely (8) Diabetes mellitus, type II: Plan: A1c: 6.0 on 05/04/2021 Hold Metformin NovoLog sliding scale per protocol A1c in a.m. (9) Bradycardia: (10) S/P cardiac pacemaker procedure: Plan: History symptomatic bradycardia s/p pacemaker (11) HTN (hypertension): Plan: Continue carvedilol. Hold losartan until postop per cards (12) HLD (hyperlipidemia): Plan: Continue atorvastatin (13) Chronic anemia: Plan: Hgb: 11.2. At approximate baseline DVT Prophylaxis -IV heparin DNR/DNI as per discussion with pt Follows with Dr Vineet Haney for routine care Pt was seen and care coordinated with Dr Thompson. See addendum Plan: I have seen and examined the patient and have discussed the case with the provider above. I agree with the assessment and plan as stated. 86 yo M s/p mechanical fall at home s/p L hip fracture. He has low vision issues. He denies any LOC. Patient reports some pain in his hip which is manageable but otherwise denies chest pain or SOB or other issue. Cardiology cleared him fo surgery for tomorrow. Heparin drip until MN to night and the NPO. My physical exam reflects that above. Cont with procedure in am. DO Jay Admission and Anticipated Discharge Date Admission Date: October 05, 2021 Subjective Patient seen and examined in 289-1. Feeling better today. Some discomfort in hip. Denies any chest pain. No fever, chills, headache, lightheadedness, shortness of breath, nausea, vomiting, abdominal pain, dysuria, diarrhea or constipation. Review of Systems Review of Systems: At least ten systems reviewed and negative except as noted in the HPI. Physical Exam Physical Exam: Gen: WD/WN, NAD, sitting in bedside chair, A&Ox3 HEENT: Normocephalic, atraumatic, conjunctivae moist, sclerae anicteric, mucous membranes moist Lung: Clear to Auscultation bilaterally, no wheezes/rales/rhonchi Heart: Regular rate, regular rhythm, no murmurs, rubs, or gallops Abdomen: Soft, NT, ND +BS x 4 Extremities: L hip TTP, mild edema to area Skin: Warm, no rash Results & Data Results & Data ([facility]) Vital Signs (Past 12 Hours) Vital Signs Temp Pulse Pulse Pulse Resp BP Pulse Ox 10/06/21 12:00 10/06/21 11:18 36.5 C 60 16 150/58 H 95 10/06/21 08:00 10/06/21 07:32 36.3 C L 60 20 152/63 H 96 10/06/21 07:19 60 10/06/21 05:42 36.4 C L 60 18 157/61 H 94 Pulse Ox 10/06/21 12:00 92 10/06/21 11:18 10/06/21 08:00 92 10/06/21 07:32 10/06/21 07:19 10/06/21 05:42 Laboratory Results Short CBC 10/06/21 Range/Units 06:25 WBC 14.20 H (4.8-10.8) K/uL Hgb 10.5 L (14.0-18.0) g/dL Hct 32.2 L (42-52) % Plt Count 223 (130-400) K/uL BMP 10/06/21 06:25 Sodium 137 Potassium 4.3 D Chloride 108 H Carbon Dioxide 21 BUN 38 H Creatinine 1.35 D Glucose 181 H Calcium 9.2 Cardiac Enzymes 10/05/21 10/06/21 Range/Units 22:31 12:45 Troponin I 0.285 H* 0.159 H* (0-0.045) ng/ml Urine 10/05/21 Range/Units 19:15 Urine Color Yellow Urine Appearance Clear (Clear) Urine pH 5.0 (4.5-7.5) Ur Specific [place] 1.019 (1.000-1.030) Urine Protein Trace H (Negative) Urine Glucose (UA) Negative (Negative) Diagnostic Findings Chest X-Ray 10/05/21 10:47 XR chest 1V portable CLINICAL HISTORY: fall. Evaluate cardiopulmonary status COMPARISON STUDY: 03/09/2021 TECHNIQUE: 1 view of the chest FINDINGS: Single frontal view of the chest demonstrates the heart size to be at the upper limits of normal to mildly enlarged status post previous cardiothoracic surgery and pacer placement. The lungs are clear of alveolar opacities. There is no evidence for pleural effusion. There is no evidence for vascular congestion. There is no acute osseous pathology. IMPRESSION: No acute cardiopulmonary disease. ACT 112: Negative or not required by law. Electronically signed by: Wilmer Burnham M.D. 10/05/2021 11:39 AM Hip/Pelvis X-Ray 10/05/21 10:47 XR hip LT 2V w pelvis CLINICAL HISTORY: fall, pain. COMPARISON STUDY: No previous studies for comparison. TECHNIQUE: AP pelvis and 2 left hip views FINDINGS: Bones: There is a displaced, transcervical fracture of the left femoral neck. The femoral shaft is superiorly displaced in relation to the femoral head. Coxa varus deformity is present. The left femoral head maintains its anatomic position within the acetabulum. There is no lytic or blastic lesion. Joints: The right hip joint space is mildly narrowed. The remaining bones are in anatomic alignment. Soft tissues: There is no focal soft tissue abnormality. There is no radiopaque foreign body. IMPRESSION: Evidence for a displaced, transcervical fracture of the left femoral neck. ACT 112: Negative or not required by law. Electronically signed by: Wilmer Burnham M.D. 10/05/2021 11:[address] 10/05/21 10:48 CT cervical spine wo con CLINICAL HISTORY: fall . Patient on eloquence. Neck pain. COMPARISON STUDY: 02/04/2021 TECHNIQUE: Standard CT of the Cervical Spine was performed without IV contrast. A dose lowering technique was utilized adhering to the principles of ALARA. FINDINGS: Bones: The bones are osteopenic. There is no evidence for an acute fracture or malalignment. The heights of the vertebral bodies are maintained. The vertebral bodies are in anatomic alignment. The odontoid is intact. Degenerative changes are seen at the atlantoaxial articulation. Disc spaces:There is again fusion of the C2 and C3 vertebral bodies and partial fusion at C3-4 posteriorly as well. Moderate to marked disc space narrowing is again seen at C6-7 with endplate sclerosis and osteophyte formation. Mild disc space narrowing is seen involving the remaining disc space levels. Apophyseal joints:Degenerative apophyseal joint disease is also again seen bilaterally. Soft tissues:The prevertebral soft tissues are within normal limits. IMPRESSION: Osteopenia with no acute abnormality. 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 ACT 112: Negative or not required by law. Electronically signed by: Wilmer Burnham M.D. 10/05/2021 11:[address] 10/05/21 10:48 CT head/brain wo con CLINICAL HISTORY: fall. Patient on eliquis COMPARISON STUDY: 02/04/2021 CT DOSE: 995.74 mGy.cm TECHNIQUE: Standard CT of the Brain was performed without IV contrast. A dose lowering technique was utilized adhering to the principles of ALARA. FINDINGS: Extraaxial space: There is no evidence for subdural hematoma. There are no extra-axial fluid collections. Ventricles and cisterns: The ventricles are again mildly to moderately dilated bilaterally. There is no evidence for midline shift or mass effect. Parenchyma: There is no subarachnoid or intraparenchymal hemorrhage. There is no evidence for an acute infarct or cerebral edema. There is mild cerebral cortical atrophy and decreased attenuation in the periventricular white matter representing remote small vessel disease. There are no gross mass lesions. Osseous structures: There is no evidence for an acute fracture. The visualized paranasal sinuses are clear. The mastoid air cells are clear bilaterally. Soft tissues: There is no evidence for focal soft tissue swelling. IMPRESSION: No acute intracerebral pathology. Cerebral cortical atrophy and remote small vessel disease. ACT 112: Negative or not required by law. Electronically signed by: Wilmer Burnham M.D. 10/05/2021 11:24 AM Hip X-Ray 10/05/21 12:44 XR hip LT min 2V CLINICAL HISTORY: left hip pain; fracture. Additional imaging required COMPARISON STUDY: 10/05/2021 TECHNIQUE: 2 left hip views FINDINGS: Bones: Compared to the previous examination, there is again evidence for a displaced fracture of the femoral neck. On the current views, it is a displaced subcapital fracture rather than a transcervical fracture. The femoral shaft is again superiorly and anteriorly displaced in relation to the femoral head with coxa varus deformity again seen . There is no lytic or blastic lesion. IMPRESSION: Additional images demonstrate the left hip fracture to be a dis placed subcapital fracture. ACT 112: Negative or not required by law. Electronically signed by: Wilmer Burnham M.D. 10/05/2021 1:03 PM (1) CHF (congestive heart failure) Heart failure type: other Qualified Code(s): I50.9 - Heart failure, unspecified (2) HTN (hypertension) Hypertension type: unspecified Qualified Code(s): I10 - Essential (primary) hypertension (3) Fall Encounter type: initial encounter Qualified Code(s): W19.XXXA - Unspecified fall, initial encounter (4) Closed fracture of left hip Encounter type: initial encounter Qualified Code(s): S72.002A - Fracture of unspecified part of neck of left femur, initial encounter for closed fracture
[2021-10-06 18:55] LABS: Partial Thromboplastin Ratio 2.3
[2021-10-06 19:03] LABS: Partial Thromboplastin Time 61.8 Seconds (21.0-31.0)
[2021-10-06] MEDS: BIMATOPROST 0.01% OP SOLN 2.5 ML BTL OPB SCH (20:14)
[2021-10-06] MEDS: DOCUSATE SODIUM/SENNA 50/8.6MG TAB PO SCH (20:15)
[2021-10-06] MEDS: FOLIC ACID 1 MG TAB PO SCH (20:15)
[2021-10-07] MEDS: HEPARIN SODIUM/DEXTROSE 25,000 UNITS/500 ML BAG IV SCH (00:06)
[2021-10-07] MEDS: INSULIN ASPART PER UNIT SC SCH ×5 (00:24→20:32)
[2021-10-07] MEDS ORDERED: ACETAMINOPHEN 1000 MG/100 ML IV IV PRN (05:23)
[2021-10-07] MEDS ORDERED: ROPIVACAINE 0.5% HCL/PF 150 MG, BUPIVACAINE 0.75% MPF 20 ML, EPINEPHrine 0.15 MG, Ketor... INFIL SCH (06:00)
[2021-10-07] MEDS ORDERED: TRANEXAMIC ACID / 0.7% NACL 1,000 MG/100 ML BAG IV SCH (06:00)
--- NOTE | 2021-10-07 06:28 | Electrocardiogram Report ---
Test Reason : Blood Pressure : / mmHG Vent. Rate : 060 BPM Atrial Rate : 057 BPM P-R Int : 000 ms QRS Dur : 154 ms QT Int : 584 ms P-R-T Axes : 000 -67 203 degrees QTc Int : 584 ms Poor data quality, interpretation may be adversely affected Ventricular-paced rhythm Abnormal ECG When compared with ECG of 05-OCT-2021 10:45, Vent. rate has decreased BY 7 BPM Confirmed by Jessee Wren ([id number]) on 10/07/2021 6:27:36 AM Referred By: REFERRED SELF Confirmed By:Jessee Wren
--- NOTE | 2021-10-07 06:34 | History & Physical Bridge Note ---
Date of Service October 07, 2021 History & Physical Bridge Note I have examined the patient, reviewed the History & Physical and in the interval since the performance of the History & Physical I have noted the following changes of clinical significance: no changes noted
[2021-10-07] MEDS ORDERED: fentaNYL citrate 100 MCG/2 ML VIAL ONE (06:37)
[2021-10-07] MEDS ORDERED: DEXAMETHASONE SOD INJ 4 MG/ML VIAL ONE (06:37)
[2021-10-07] MEDS ORDERED: ONDANSETRON INJ 2 MG/ML 2 ML VIAL ONE (06:37)
[2021-10-07] MEDS ORDERED: ROCURONIUM BROMIDE 10 MG/ML 5 ML VIAL IV ONE (06:37)
[2021-10-07] MEDS ORDERED: PROPOFOL IV EMULSION 10 MG/ML 20 ML VIAL IV ONE (06:37)
[2021-10-07] MEDS ORDERED: ceFAZolin 2,000 MG/15 ML IV PUSH IV ONE (06:47)
[2021-10-07 06:50] LABS: Partial Thromboplastin Ratio 1.1; Partial Thromboplastin Time 27.9 Seconds (21.0-31.0)
[2021-10-07] MEDS ORDERED: PHENYLEPHRINE 100MCG/ML 5ML SYR ONE (07:21)
[2021-10-07] MEDS ORDERED: ETOMIDATE 2 MG/ML 20 ML VIAL IV ONE (07:21)
[2021-10-07] MEDS ORDERED: ePHEDrine sulfate 50 MG/ML SYR ONE (07:47)
[2021-10-07] MEDS ORDERED: PHENYLEPHRINE HCL 10 MG/ML VIAL ONE (07:47)
[2021-10-07] MEDS ORDERED: HYDROmorphone INJ 1 MG/ML SYRINGE IV PRN (07:59)
[2021-10-07] MEDS ORDERED: ONDANSETRON INJ 2 MG/ML 2 ML VIAL IV PRN (07:59)
[2021-10-07] MEDS ORDERED: ATROPINE SULFATE 0.1 MG/ML 10ML SYR IV PRN (07:59)
[2021-10-07] MEDS ORDERED: SUGAMMADEX SODIUM 200 MG/2 ML VIAL IV ONE (08:08)
--- NOTE | 2021-10-07 08:34 | Operative Report ---
PG Post Operative Report Pre & Post Diagnosis Operation Date: 10/06/21 09:20 <No data on this case meets the specified criteria> Operation Date: 10/07/21 07:00 Pre-Op Diagnosis: Displaced femoral neck fracture of the left hip Post-Op Diagnosis: Displaced femoral neck fracture of the left hip I identified the patient and participated in the time-out.: Yes Procedure Operation Date: 10/06/21 09:20 <No data on this case meets the specified criteria> Operation Date: 10/07/21 07:00 Actual Procedures p Left Anterior hip hemiarthroplasty (Left) - Meek Davila DO Surgeon Meek Davila DO Visiting Professor Meek Downey PAC Estimated Blood Loss 150 Findings Consistent with Post-Op Diagnosis Specimens Left femoral head Complications none Disposition Disposition: Recovery Room Indications Delio is a pleasant 86-year-old male who tripped and fell couple days ago sustaining a displaced left femoral neck fracture. He was admitted to the hospital. Orthopedics was consulted. He consented to proceed with a left hip hemiarthroplasty. Description of Procedure On October 07, 2021 Delio was brought down from his hospital bed to the preoperative holding area. The operative extremity was identified and signed. He was given a preoperative antibiotic. He was taken back to the operating room and laid on the table in supine position. He was put under general anesthesia. The left hip was brought out to a purist leg positioner. The left hip was then prepped and draped in sterile fashion. A timeout was done. The patient and the operative extremity was properly identified. An anterior approach was used. Dissection was taken down to the fascia. The rectus was retracted anteriorly and the tensor was retracted posteriorly. The circumflex vessels were ligated. The capsule was then incised and tagged for later repair. The femoral neck was then resected and the femoral neck was removed. The femoral head was then removed. The acetabulum was inspected and there was no evidence of arthritis. The femoral head measured to be a size 51. The proximal femur was then exposed. Sequential broaching to a size 12 broach was done. A standard 51 mm head was then impacted onto the trunnion. The hip was then reduced. Fluoroscopic images showed anatomic alignment and good length of the implants. The hip was then dislocated. The broach was removed. A cement restrictor was placed. The final 11 mm Sunil LDFX femoral stem was then cemented in place with Simplex cement. A 28 mm head with a 0 neck was then impacted into a 51 mm bipolar shell. The head was then impacted onto the femoral neck. The hip was then reduced. Final fluoroscopic images showed anatomic alignment of the hip. The wound was then irrigated. The capsule was then closed with #1 Vicryl suture. The fascia was then closed with #0 PDS suture. Skin was closed with 2-0 Vicryl and becky. A Silverlon dressing was placed. He was then extubated and transferred to a [facility]. He was taken to the postanesthesia care unit in stable condition. He tolerated the procedure well. Meek Downey PA-C, was present for the entire procedure. He was critical for patient positioning, prepping, draping, retraction exposure, wound closure and application of sterile dressing. I attest to the content of the Intraoperative Record and any orders documented therein. Any exceptions are noted below.
--- NOTE | 2021-10-07 08:49 | Fluoroscopy Report ---
FL hip LT 1V CLINICAL HISTORY: LEFT ANTERIOR TIMI COMPARISON STUDY: None FLUOROSCOPY TIME: 10 second. FLUOROSCOPIC IMAGES: 1 FINDINGS: The patient is status post total hip replacement with bipolar hip prosthesis. The prostheti c components are in anatomic alignment with no acute osseous pathology identified. IMPRESSION: Status post left total hip replacement. ACT 112: Negative or not required by law. Electronically signed by: Wilmer Burnham M.D. 10/07/2021 8:48 AM
--- NOTE | 2021-10-07 09:38 | Anesthesiology Progress Note ---
Date of Service October 07, 2021 Anesthesia Post Procedure Vital Signs Vital Signs: Temp Pulse Pulse Pulse Resp BP BP 10/07/21 09:30 60 12 153/64 H 10/07/21 09:20 60 12 159/62 H 10/07/21 09:10 65 16 172/65 H 10/07/21 09:00 60 12 158/61 H 10/07/21 08:50 36.3 C L 60 16 167/84 H 10/07/21 07:29 60 10/07/21 06:25 36.5 C 62 16 155/62 H 10/07/21 05:05 60 10/07/21 03:44 36.4 C L 65 14 158/67 H 10/06/21 23:23 36.3 C L 62 18 150/67 H 10/06/21 19:00 35.9 C L 63 17 146/63 H 10/06/21 16:20 60 10/06/21 16:04 36.4 C L 60 16 130/58 L 10/06/21 16:00 10/06/21 12:00 10/06/21 11:18 36.5 C 60 16 150/58 H Pulse Ox Pulse Ox 10/07/21 09:30 98 10/07/21 09:20 98 10/07/21 09:10 100 10/07/21 09:00 100 10/07/21 08:50 100 10/07/21 07:29 10/07/21 06:25 94 10/07/21 05:05 10/07/21 03:44 98 10/06/21 23:23 98 10/06/21 19:00 98 10/06/21 16:20 10/06/21 16:04 97 10/06/21 16:00 92 10/06/21 12:00 92 10/06/21 11:18 95 Pain Intensity Left Hip: Pain Intensity: 6 Transfer of Care Handoff Completed per policy Notes Mental Status: alert / awake / arousable Patient Amnestic to Procedure: Yes Nausea / Vomiting: adequately controlled Pain: adequately controlled Airway Patency, RR, SpO2: stable & adequate BP & HR: stable & adequate Hydration State: stable & adequate Anesthetic Complications: no major complications apparent
--- NOTE | 2021-10-07 09:55 | XRay Report ---
XR hip LT min 2V CLINICAL HISTORY: Post-Operative implant position TECHNIQUE: 2 views of the left hip were obtained. Comparison: Comparison is made to left hip radiographs 10/05/2021 FINDINGS: Patient is status post total hip arthroplasty with expected postsurgical changes including soft tissu e swelling, subcutaneous emphysema, and surgical staple placement. No periarticular lucency or hardwa re fracture is seen. The bones are anatomically aligned. The bony mineralization is normal. IMPRESSION: Expected postoperative appearance status post placement of total hip arthroplasty. ACT 112: Negative or not required by law. Electronically signed by: Anthony Brown M.D. 10/07/2021 9:53 AM
[2021-10-07] MEDS ORDERED: HYDROmorphone INJ 0.5 MG/0.5 ML SYR IV PRN (10:19)
[2021-10-07] MEDS: LACTATED RINGER'S 1,000 ML IV SCH (10:42)
[2021-10-07] MEDS: BRIMONIDINE TARTRATE 0.2% 5ML OPL SCH ×3 (12:28→20:34)
--- NOTE | 2021-10-07 13:15 | Cardiology Progress Note ---
Date of Service October 07, 2021 Assessment & Plan (1) Closed fracture of left hip: (2) Elevated troponin I level: (3) Preop cardiovascular exam: (4) CHF (congestive heart failure): (5) Persistent atrial fibrillation: (6) S/P cardiac pacemaker procedure: (7) CAD (coronary artery disease): (8) History of coronary artery bypass graft: Plan: Complex 86-year-old male admitted to [facility] on October 05, 2021 following a mechanical fall with resultant left hip fracture. Patient status post left anterior hip hemiarthroplasty this morning (10/07/2021) by Dr. Meek Davila DO. Recommend administration of prior to arrival cardiac medications (Carvedilol, isosorbide, aspirin, Losartan) when able to take PO safely. Resume anticoagulation as soon as determined to be safe from a surgical standpoint. Hold furosemide today. Check labs. Admission and Anticipated Discharge Date Admission Date: October 05, 2021 Supervising Physician Co-Signing Physician Notes Pt seen. Resting comfortably. Agree with findings and plan as noted by Mr Marks. Subjective Patient evaluated x 2, shortly after returning to the floor following left anterior hip hemiarthroplasty by Dr. Meek Davila DO and again around 12:50 PM. Responds to tactile stimuli. + Left hip discomfort. No chest pain, dyspnea, palpitations, headache, dizziness, orthopnea, subjective fevers, or chills. He has not received AM medications yet. Telemetry: Ventricular paced in the 60's overnight. Off monitor for procedure around 6:30. Physical Exam Physical Exam: General: + Pallor. NAD. A&O to person and place. HENT: Normocephalic. Atraumatic. Mouth: Poor dentition. Mucous membranes are dry. Eyes: Conjunctiva pink, sclera pale. Neck: Bilateral carotid bruits. No JVD. Heart: Regular, paced at 60 bpm. Grade II/ systolic murmur. Soft diastolic murmur. No rub. PMI is nondisplaced. Lungs: Clear to auscultation anteriorly Abdomen: +BS. Extremities: No significant edema. No clubbing. No cyanosis. Limited neurological examination is without focal deficits. Pulses: Posterior tibial=1/4. Results & Data ([facility]) Vital Signs (Past 12 Hours) Vital Signs Temp Pulse Pulse Pulse Resp BP Pulse Ox 10/07/21 13:00 36.6 C 60 16 146/78 H 100 10/07/21 12:04 36.3 C L 60 22 145/69 H 100 10/07/21 12:00 10/07/21 11:02 36.4 C L 61 16 164/68 H 99 10/07/21 10:45 36.4 C L 60 16 146/57 H 100 10/07/21 10:31 36.4 C L 61 18 164/56 H 99 10/07/21 10:15 36.8 C 60 16 148/58 H 99 10/07/21 10:00 36.8 C 60 16 152/80 H 100 10/07/21 09:30 60 12 153/64 H 98 10/07/21 09:20 60 12 159/62 H 98 10/07/21 09:10 65 16 172/65 H 100 10/07/21 09:00 60 12 158/61 H 100 10/07/21 08:50 36.3 C L 60 16 167/84 H 100 10/07/21 07:29 60 10/07/21 06:25 36.5 C 62 16 155/62 H 94 10/07/21 05:05 60 10/07/21 03:44 36.4 C L 65 14 158/67 H 98 Pulse Ox 10/07/21 13:00 10/07/21 12:04 10/07/21 12:00 100 10/07/21 11:02 10/07/21 10:45 10/07/21 10:31 10/07/21 10:15 10/07/21 10:00 10/07/21 09:30 10/07/21 09:20 10/07/21 09:10 10/07/21 09:00 10/07/21 08:50 10/07/21 07:29 10/07/21 06:25 10/07/21 05:05 10/07/21 03:44 Laboratory Results Laboratory Results - last 24 hr 10/06/21 10/06/21 10/06/21 12:45 18:08 18:15 APTT 61.8 H* PTT Ratio 2.3 POC Glucose 176 H Troponin I 0.159 H* 10/06/21 10/06/21 10/07/21 20:29 23:57 05:58 APTT PTT Ratio POC Glucose 160 H 170 H 163 H Troponin I 10/07/21 10/07/21 10/07/21 06:28 08:55 11:50 APTT 27.9 PTT Ratio 1.1 POC Glucose 144 H 167 H Troponin I (1) CHF (congestive heart failure) Heart failure type: other Qualified Code(s): I50.9 - Heart failure, unspecified (2) Closed fracture of left hip Encounter type: initial encounter Qualified Code(s): S72.002A - Fracture of unspecified part of neck of left femur, initial encounter for closed fracture
[2021-10-07 14:38] LABS: Hematocrit (blood only) 30.1 % (42-52); Hemoglobin 9.7 g/dL (14.0-18.0); Mean Corpuscular Hemoglobin 31.2 pg (25-34); Mean Corpuscular Hgb Conc 32.2 g/dL (32-36); Mean Corpuscular Volume 96.8 fL (80-100); Mean Platelet Volume 10.2 fL (7.4-10.4); Platelet Count 197 K/uL (130-400); RDW Coefficient of Variation 14.6 % (11.5-14.5); RDW Standard Deviation 50.9 fL (36.4-46.3); Red Blood Count 3.11 M/uL (4.7-6.1); White Blood Count 9.54 K/uL (4.8-10.8)
[2021-10-07 14:56] LABS: Calcium 9.1 mg/dl (8.5-10.1); Creatinine Clr Calc Pharmacy 36.9 ml/min; Est GFR (African American) 50.5 ml/min; Est GFR (Non-African American) 43.6 ml/min; Potassium 4.5 mmol/L (3.5-5.1)
--- NOTE | 2021-10-07 15:31 | Hospitalist Progress Note ---
Date of Service October 07, 2021 Assessment & Plan (1) Closed fracture of left hip: (2) Fall: Plan: Patient is 86-year-old male with PMH DM II atrial fibrillation on chronic Eliquis, h/o symptomatic bradycardia s/p pacemaker, CKD III, chronic diastolic CHF, EF 50% in 02/2021, moderate mitral regurgitation and aortic regurgitation presented to ER with complaint of mechanical fall on 10/04/21 and left hip pain and found to have Left displaced subcapital femoral neck fracture. In ER vitals stable, troponin 0.1, paced rhythm on EKG. CK: 257 Left hip x-ray: Displaced transcervical fracture left femoral neck. Additional additional images obtained: Demonstrate left hip fracture to be displaced subcapital fracture CT head and C-spine without acute abnormality, CXR unremarkable POD#0 s/p left anterior hip hemiarthroplasty this morning by Dr. Davila Monitor H&H, continue incentive spirometry, PT/OT when appropriate Per cards, resume anticoagulation as soon as determined to be safe from a surgical standpoint (3) Urinary retention: Plan: Urinating a small amount post-operatively. RN to bladder scan now, place lake catheter if needed (4) Elevated troponin I level: Plan: Troponin up-trending overnight 0.111 -> 0.250 -> 0.285, placed on IV heparin drip, overnight, now downtrending, CK: 257 Cards evaluated- patient is high risk for procedure but further cardiac eval at this time wound not likely reduce risk of perioperative complications Troponin downtrending today with repeat 0.159, no chest pain (5) CAD (coronary artery disease): Plan: S/p CABG Resume aspirin, atorvastatin, carvedilol, losartan today per cards (6) CKD (chronic kidney disease), stage III: Plan: Cr initially 1.6 but returned to baseline today of 1.45 (baseline 1.3-1.5) Monitor renal functions, avoid nephrotoxic agents when possible (7) Atrial fibrillation: Plan: Chronic atrial fibrillation on Eliquis Holding Eliquis, bridging with IV heparin - pre-operatively Resume anticoagulation as soon as determined to be safe from a surgical standpoint Continue carvedilol (8) CHF (congestive heart failure): Plan: History chronic systolic, diastolic heart failure. EF 50% in 02/2021 Appears euvolemic Hold Lasix today per cards, monitor volume status closely (9) Diabetes mellitus, type II: Plan: A1c: 6.0 on 05/04/2021 Hold Metformin NovoLog sliding scale per protocol A1c in a.m. (10) Bradycardia: (11) S/P cardiac pacemaker procedure: Plan: History symptomatic bradycardia s/p pacemaker (12) HTN (hypertension): Plan: Continue carvedilol. Hold losartan until postop per cards (13) HLD (hyperlipidemia): Plan: Continue atorvastatin (14) Chronic anemia: Plan: Hgb: 9.7 post-operatively. Continue to monitor DVT Prophylaxis Bridged pre-operatively with IV heparin, on Eliquis at home. Resume anticoagulation as soon as determined to be safe from a surgical standpoint DNR/DNI as per discussion with pt Follows with Dr Vineet Haney for routine care Pt was seen and care coordinated with Dr Thompson. See addendum Admission and Anticipated Discharge Date Admission Date: October 05, 2021 Supervising Physician Co-Signing Physician Notes Hips areI have seen and examined the patient and have discussed the case with the provider above. I agree with the assessment and plan as stated. 86-year-old man status post jury, recovering from anesthesia. Initially he was somewhat less responsive to questioning however he then perked up and was able to urinate spontaneously on his own a couple hours later. He denies any pain and is oriented. Overall doing very well. Continue plan as above. DO Jay Subjective Patient seen and examined in 289-1. Sleepy following surgery but responding to verbal stimuli this afternoon, following commands. Denies any hip pain. Feels "really good now". Denies any chest pain. No fever, chills, headache, lightheadedness, shortness of breath, nausea, vomiting, abdominal pain, diarrhea or constipation.Able to urinate a small amount this afternoon, RN to bladder scan. Review of Systems Review of Systems: At least ten systems reviewed and negative except as noted in the HPI. Physical Exam Physical Exam: Gen: WD/WN, NAD, lying in bed, A&Ox3 HEENT: Normocephalic, atraumatic, conjunctivae moist, sclerae anicteric, mucous membranes moist Lung: Clear to Auscultation bilaterally, no wheezes/rales/rhonchi Heart: Regular rate, regular rhythm, no murmurs, rubs, or gallops Abdomen: Soft, NT, ND +BS x 4 Extremities: L hip with surgical dressing in place with ice Skin: Warm, no rash Results & Data Results & Data ([facility]) Vital Signs (Past 12 Hours) Vital Signs Temp Pulse Pulse Pulse Resp BP Pulse Ox 10/07/21 13:00 36.6 C 60 16 146/78 H 100 10/07/21 12:04 36.3 C L 60 22 145/69 H 100 10/07/21 12:00 10/07/21 11:02 36.4 C L 61 16 164/68 H 99 10/07/21 10:45 36.4 C L 60 16 146/57 H 100 10/07/21 10:31 36.4 C L 61 18 164/56 H 99 10/07/21 10:15 36.8 C 60 16 148/58 H 99 10/07/21 10:00 36.8 C 60 16 152/80 H 100 10/07/21 09:30 60 12 153/64 H 98 10/07/21 09:20 60 12 159/62 H 98 10/07/21 09:10 65 16 172/65 H 100 10/07/21 09:00 60 12 158/61 H 100 10/07/21 08:50 36.3 C L 60 16 167/84 H 100 10/07/21 07:29 60 10/07/21 06:25 36.5 C 62 16 155/62 H 94 10/07/21 05:05 60 10/07/21 03:44 36.4 C L 65 14 158/67 H 98 Pulse Ox 10/07/21 13:00 10/07/21 12:04 10/07/21 12:00 100 10/07/21 11:02 10/07/21 10:45 10/07/21 10:31 10/07/21 10:15 10/07/21 10:00 10/07/21 09:30 10/07/21 09:20 10/07/21 09:10 10/07/21 09:00 10/07/21 08:50 10/07/21 07:29 10/07/21 06:25 10/07/21 05:05 10/07/21 03:44 (1) CHF (congestive heart failure) Heart failure type: other Qualified Code(s): I50.9 - Heart failure, unspecified (2) HTN (hypertension) Hypertension type: unspecified Qualified Code(s): I10 - Essential (primary) hypertension (3) Fall Encounter type: initial encounter Qualified Code(s): W19.XXXA - Unspecified fall, initial encounter (4) Closed fracture of left hip Encounter type: initial encounter Qualified Code(s): S72.002A - Fracture of unspecified part of neck of left femur, initial encounter for closed fracture
[2021-10-07] MEDS: APIXABAN 2.5 MG TAB PO SCH ×2 (16:26→20:32)
[2021-10-07] MEDS: metFORMIN HCL 500 MG TAB PO SCH (16:26)
[2021-10-07] MEDS: ISOSORBIDE MONO EXTENDED REL 30 MG TABCR PO SCH (16:27)
[2021-10-07] MEDS: CYANOCOBALAMIN 500 MCG TABLET (VITAMIN B-12) PO SCH (16:27)
[2021-10-07] MEDS: ASPIRIN 81 MG ECTAB PO SCH (16:27)
[2021-10-07] MEDS: ATORVASTATIN 40 MG TAB PO SCH (16:27)
[2021-10-07] MEDS: carvediloL 3.125 MG TAB PO SCH ×2 (16:27→20:33)
[2021-10-07] MEDS: DORZOLAMIDE/TIMOLOL 22.3/6.8MG/ML 10 ML BTL OPL SCH ×2 (16:28→20:34)
[2021-10-07] MEDS: FOLIC ACID 1 MG TAB PO SCH (20:33)
[2021-10-07] MEDS: BIMATOPROST 0.01% OP SOLN 2.5 ML BTL OPB SCH (20:34)
[2021-10-08] MEDS: LACTATED RINGER'S 1,000 ML IV SCH (05:25)
[2021-10-08 06:46] LABS: Eosinophils # (auto) 0.01 K/uL (0-0.5); Eosinophils % (auto) 0.1 %; Hematocrit (blood only) 26.6 % (42-52); Hemoglobin 8.5 g/dL (14.0-18.0); Immature Granulocytes # (auto) 0.01 K/uL (0.00-0.02); Immature Granulocytes % (auto) 0.1 %; Lymphocytes # (auto) 0.86 K/uL (1.2-3.4); Lymphocytes % (auto) 8.1 %; Mean Corpuscular Hemoglobin 31.5 pg (25-34); Mean Corpuscular Volume 98.5 fL (80-100); Mean Platelet Volume 9.9 fL (7.4-10.4); Monocytes # (auto) 0.86 K/uL (0.11-0.59); Monocytes % (auto) 8.1 %; Neutrophils # (auto) 8.89 K/uL (1.4-6.5); Neutrophils % (auto) 83.6 %; Platelet Count 190 K/uL (130-400); RDW Coefficient of Variation 14.7 % (11.5-14.5); RDW Standard Deviation 52.5 fL (36.4-46.3); White Blood Count 10.63 K/uL (4.8-10.8)
[2021-10-08 07:05] LABS: BUN Creatinine Ratio 37.7 (10-20); Creatinine Clr Calc Pharmacy 39.5 ml/min; Est GFR (African American) 53.6 ml/min; Est GFR (Non-African American) 46.3 ml/min; Potassium 4.7 mmol/L (3.5-5.1)
[2021-10-08 07:23] LABS: Partial Thromboplastin Ratio 1.1; Partial Thromboplastin Time 29.1 Seconds (21.0-31.0)
--- NOTE | 2021-10-08 07:47 | Orthopedic Progress Note ---
Date of Service October 08, 2021 Assessment & Plan (1) Closed fracture of left hip: Overall is doing fairly well. Is not having much pain in the left hip. He is on Eliquis for DVT prophylaxis. He can be seen by therapy today for ambulation and range of motion exercises. The dressing should stay in place for 7 days. He is orthopedically stable for discharge when medically ready. Full orthopedic discharge instructions were placed in the discharge summary. Cesar Kebede was seen and examined at bedside this morning. Overall is doing fairly well. Is not having any pain in the left hip. He was able to get some sleep last night. He has not been ambulating on it yet. He has no complaints. Review of Systems All systems reviewed & are unremarkable except as noted in HPI & below. Physical Exam On physical examination of the left hip, the dressing is mostly clean and dry. His leg lengths are equal. He has active dorsiflexion and plantarflexion of his left ankle. Results & Data Results & Data Laboratory Results . Diagnostic Findings . PG Care Time/CCT Total # of Minutes Spent Total Time Spent with Patient: Total time spent is greater than 50% in coordination of care (as documented) at patient's floor/unit and/or counseling patient: Coding Level of Care Code 58272 Post Operative Follow-Up Diagnoses Closed fracture of left hip S72.002A Encounter type: initial encounter (1) Closed fracture of left hip Encounter type: initial encounter Qualified Code(s): S72.002A - Fracture of unspecified part of neck of left femur, initial encounter for closed fracture
[2021-10-08] MEDS: INSULIN ASPART PER UNIT SC SCH ×4 (08:45→20:57)
[2021-10-08] MEDS: LOSARTAN POTASSIUM 25 MG TAB PO SCH (08:46)
[2021-10-08] MEDS: DORZOLAMIDE/TIMOLOL 22.3/6.8MG/ML 10 ML BTL OPL SCH ×2 (08:46→21:00)
[2021-10-08] MEDS: BRIMONIDINE TARTRATE 0.2% 5ML OPL SCH ×3 (08:46→21:00)
[2021-10-08] MEDS: metFORMIN HCL 500 MG TAB PO SCH ×2 (08:46→17:12)
[2021-10-08] MEDS: APIXABAN 2.5 MG TAB PO SCH ×2 (08:46→20:59)
--- NOTE | 2021-10-08 09:53 | Hospitalist Progress Note ---
Date of Service October 08, 2021 Assessment & Plan (1) Closed fracture of left hip: (2) Fall: Plan: 86-year-old male with PMH DM II atrial fibrillation on chronic Eliquis, h/o symptomatic bradycardia s/p pacemaker, CKD III, chronic diastolic CHF, EF 50% in 02/2021, moderate mitral regurgitation and aortic regurgitation presented to ER with complaint of mechanical fall on 10/04/21 and left hip pain and found to have Left displaced subcapital femoral neck fracture. Left hip x-ray: Displaced transcervical fracture left femoral neck. Additional additional images obtained: Demonstrate left hip fracture to be displaced subcapital fracture CT head and C-spine without acute abnormality, CXR unremarkable POD#1 s/p left anterior hip hemiarthroplasty by Dr. Davila Awaiting PT/OT Possible DC to SNF in 1-2 days (3) Urinary retention: Plan: There was initial concern about possible urinary retention but this is ruled out. Patient reports no trouble urinating (4) Elevated troponin I level: Plan: Troponin up-trending overnight 0.111 -> 0.250 -> 0.285, was initially placed on IV heparin drip, overnight, now downtrending, CK: 257 Cards evaluated- patient is high risk for procedure but further cardiac eval at this time wound not likely reduce risk of perioperative complications Troponin downtrending today with repeat 0.159, no chest pain (5) CAD (coronary artery disease): Plan: S/p CABG Continue aspirin, atorvastatin, carvedilol, losartan (6) CKD (chronic kidney disease), stage III: Plan: Cr initially 1.6 but returned to baseline (baseline 1.3-1.5) Cr is 1.38 today Monitor renal functions, avoid nephrotoxic agents when possible (7) Atrial fibrillation: Plan: Chronic atrial fibrillation on Eliquis Eliquis has been resumed Continue carvedilol (8) CHF (congestive heart failure): Plan: History chronic systolic, diastolic heart failure. EF 50% in 02/2021 Appears euvolemic Holding lasix for now per Cards. Plan to resume by tomorrow or on discharge (9) Diabetes mellitus, type II: Plan: A1c: 6.0 on 05/04/2021 Hold Metformin NovoLog sliding scale per protocol A1c is 6.3 (10) Bradycardia: (11) S/P cardiac pacemaker procedure: Plan: History symptomatic bradycardia s/p pacemaker (12) HTN (hypertension): Plan: Continue carvedilol, losartan (13) HLD (hyperlipidemia): Plan: Continue atorvastatin (14) Chronic anemia: Plan: Acute on chronic Hb dropped from 9.7 yesterday to 8.5 today. Possible due to blood loss during surgery Monitor DVT Prophylaxis on eliquis DNR/DNI as per discussion with pt Follows with Dr Vineet Haney for routine care Admission and Anticipated Discharge Date Admission Date: October 05, 2021 Subjective 86-year-old male with PMH DM II atrial fibrillation on chronic Eliquis, h/o symptomatic bradycardia s/p pacemaker, CKD III, chronic diastolic CHF, EF 50% in 02/2021, moderate mitral regurgitation and aortic regurgitation presented to ER with complaint of mechanical fall on 10/04/21 and left hip pain and found to have Left displaced subcapital femoral neck fracture. S/P Left Anterior hip hemiarthroplasty on 10/07/21 Patient seen and examined this morning. Denies any pain at this time at surgical site. Denies any other complaints. Physical Exam Constitutional: + well hydrated; no acute distress and not obese ENMT: external ear and nose normal, oropharynx normal Respiratory: normal respiratory effort, lungs clear to auscultation Cardiovascular: Rate/Rhythm: regular rate and regular rhythm S1 S2 Gastrointestinal (Abdomen): normal bowel sounds, soft, nontender, no he patosplenomegaly Musculoskeletal: No pedal edema. Clean dressing over left hip surgical site Neurologic: PERRL, EOMI, accommodation nl, no face palsy, no dysarthria Psychiatric: A+Ox3, euthymic affect Results & Data Results & Data ([facility]) Vital Signs (Past 12 Hours) Vital Signs Temp Pulse Pulse Resp BP Pulse Ox 10/08/21 07:47 60 10/08/21 06:00 35.9 C L 60 18 128/62 99 10/08/21 03:00 35.8 C L 60 17 134/55 L 97 10/08/21 01:43 60 10/07/21 23:00 36.4 C L 60 18 134/53 L 99 Laboratory Results Abnormal lab results 10/07/21 10/07/21 10/07/21 Range/Units 11:50 14:15 14:15 RBC 3.11 L (4.7-6.1) M/uL Hgb 9.7 L (14.0-18.0) g/dL Hct 30.1 L (42-52) % RDW Std Deviation 50.9 H (36.4-46.3) fL RDW Coeff of [place] 14.6 H (11.5-14.5) % Neut # (Auto) (1.4-6.5) K/uL Lymph # (Auto) (1.2-3.4) K/uL Hernando # (Auto) (0.11-0.59) K/uL Chloride 109 H (98-107) mmol/L BUN 48 H (7-18) mg/dl Creatinine 1.45 H (0.6-1.4) mg/dl BUN/Creatinine Ratio 33.0 H (10-20) Glucose 170 H (70-99) mg/dl POC Glucose 167 H (70-99) mg/dl 10/07/21 10/07/21 10/08/21 Range/Units 16:35 20:13 06:32 RBC 2.70 L (4.7-6.1) M/uL Hgb 8.5 L (14.0-18.0) g/dL Hct 26.6 L (42-52) % RDW Std Deviation 52.5 H (36.4-46.3) fL RDW Coeff of [place] 14.7 H (11.5-14.5) % Neut # (Auto) 8.89 H (1.4-6.5) K/uL Lymph # (Auto) 0.86 L (1.2-3.4) K/uL [place]ando # (Auto) 0.86 H (0.11-0.59) K/uL Chloride (98-107) mmol/L BUN (7-18) mg/dl Creatinine (0.6-1.4) mg/dl BUN/Creatinine Ratio (10-20) Glucose (70-99) mg/dl POC Glucose 165 H 206 H (70-99) mg/dl 10/08/21 10/08/21 Range/Units 06:32 07:49 RBC (4.7-6.1) M/uL Hgb (14.0-18.0) g/dL Hct (42-52) % RDW Std Deviation (36.4-46.3) fL RDW Coeff of [place] (11.5-14.5) % Neut # (Auto) (1.4-6.5) K/uL Lymph # (Auto) (1.2-3.4) K/uL [place] # (Auto) (0.11-0.59) K/uL Chloride 111 H (98-107) mmol/L BUN 52 H (7-18) mg/dl Creatinine (0.6-1.4) mg/dl BUN/Creatinine Ratio 37.7 H (10-20) Glucose 161 H (70-99) mg/dl POC Glucose 161 H (70-99) mg/dl (1) Closed fracture of left hip Encounter type: initial encounter Qualified Code(s): S72.002A - Fracture of unspecified part of neck of left femur, initial encounter for closed fracture (2) Fall Encounter type: initial encounter Qualified Code(s): W19.XXXA - Unspecified fall, initial encounter (3) CHF (congestive heart failure) Heart failure type: other Qualified Code(s): I50.9 - Heart failure, unspecified (4) HTN (hypertension) Hypertension type: unspecified Qualified Code(s): I10 - Essential (primary) hypertension
[2021-10-08] MEDS: ISOSORBIDE MONO EXTENDED REL 30 MG TABCR PO SCH (10:15)
[2021-10-08] MEDS: ATORVASTATIN 40 MG TAB PO SCH (10:15)
[2021-10-08] MEDS: ASPIRIN 81 MG ECTAB PO SCH (10:15)
[2021-10-08] MEDS: CYANOCOBALAMIN 500 MCG TABLET (VITAMIN B-12) PO SCH (10:15)
[2021-10-08] MEDS: carvediloL 3.125 MG TAB PO SCH ×2 (10:16→20:59)
[2021-10-08] MEDS: oxyCODONE HCL IR 5 MG TAB (IMMEDIATE RELEASE) PO PRN (15:30)
[2021-10-08] MEDS: BIMATOPROST 0.01% OP SOLN 2.5 ML BTL OPB SCH (21:00)
[2021-10-08] MEDS: FOLIC ACID 1 MG TAB PO SCH (21:00)
[2021-10-09] MEDS: LACTATED RINGER'S 1,000 ML IV SCH (06:03)
[2021-10-09 07:46] LABS: Hematocrit (blood only) 24.1 % (42-52); Hemoglobin 7.8 g/dL (14.0-18.0); Mean Corpuscular Hemoglobin 31.7 pg (25-34); Mean Corpuscular Hgb Conc 32.4 g/dL (32-36); Mean Platelet Volume 10.3 fL (7.4-10.4); Platelet Count 200 K/uL (130-400); RDW Coefficient of Variation 14.9 % (11.5-14.5); RDW Standard Deviation 52.5 fL (36.4-46.3); Red Blood Count 2.46 M/uL (4.7-6.1); White Blood Count 16.61 K/uL (4.8-10.8)
[2021-10-09] MEDS: APIXABAN 2.5 MG TAB PO SCH ×2 (07:59→20:25)
[2021-10-09] MEDS: DORZOLAMIDE/TIMOLOL 22.3/6.8MG/ML 10 ML BTL OPL SCH ×2 (08:00→20:24)
[2021-10-09] MEDS: carvediloL 3.125 MG TAB PO SCH ×2 (08:00→20:25)
[2021-10-09] MEDS: BRIMONIDINE TARTRATE 0.2% 5ML OPL SCH ×3 (08:00→19:35)
[2021-10-09] MEDS: metFORMIN HCL 500 MG TAB PO SCH ×2 (08:01→17:16)
[2021-10-09] MEDS: ASPIRIN 81 MG ECTAB PO SCH (08:01)
[2021-10-09] MEDS: ATORVASTATIN 40 MG TAB PO SCH (08:01)
[2021-10-09] MEDS: ISOSORBIDE MONO EXTENDED REL 30 MG TABCR PO SCH (08:01)
[2021-10-09] MEDS: CYANOCOBALAMIN 500 MCG TABLET (VITAMIN B-12) PO SCH (08:01)
[2021-10-09] MEDS: LOSARTAN POTASSIUM 25 MG TAB PO SCH (08:01)
[2021-10-09] MEDS: INSULIN ASPART PER UNIT SC SCH ×4 (08:08→21:26)
[2021-10-09 08:16] LABS: BUN Creatinine Ratio 38.4 (10-20); Calcium 8.3 mg/dl (8.5-10.1); Creatinine Clr Calc Pharmacy 34.6 ml/min; Est GFR (African American) 44.9 ml/min; Est GFR (Non-African American) 38.7 ml/min
[2021-10-09 08:21] LABS: Partial Thromboplastin Ratio 1.2
--- NOTE | 2021-10-09 08:40 | Orthopedic Progress Note ---
Date of Service October 09, 2021 Assessment & Plan (1) Closed fracture of left hip: Overall is doing fairly well. Is not having too much pain in the left hip. He is participating with therapy but he is still a 2 person assist. He is orthopedically stable for discharge when medically ready. It looks like he can go back to [facility] at discharge he is on Eliquis for DVT prophylaxis. The dressing will stay in place for 7 days. Full orthopedic discharge instructions have been placed in the discharge summary. Orthopedics will sign off. If you have any further questions please feel free to contact me personally at [phone] Cesar Kebede was seen and examined at bedside this morning. Overall is doing fairly well. Is not having much pain in the left hip. He was able to participate well with physical therapy yesterday. They got him on the edge of the bed. He was able to march in place. He was not able to ambulate very far. He was having minimal pain. Review of Systems All systems reviewed & are unremarkable except as noted in HPI & below. Physical Exam On physical examination of the left hip, the dressing is clean and dry. His leg lengths are equal. He has active dorsiflexion plantarflexion of his left ankle.. Results & Data Results & Data Laboratory Results . Diagnostic Findings . PG Care Time/CCT Total # of Minutes Spent Total Time Spent with Patient: Total time spent is greater than 50% in coordination of care (as documented) at patient's floor/unit and/or counseling patient: Coding Level of Care Code 29037 Post Operative Follow-Up Diagnoses Closed fracture of left hip S72.002A Encounter type: initial encounter (1) Closed fracture of left hip Encounter type: initial encounter Qualified Code(s): S72.002A - Fracture of unspecified part of neck of left femur, initial encounter for closed fracture
--- NOTE | 2021-10-09 10:25 | Hospitalist Progress Note ---
Date of Service October 09, 2021 Assessment & Plan (1) Closed fracture of left hip: (2) Fall: Plan: 86-year-old male with PMH DM II atrial fibrillation on chronic Eliquis, h/o symptomatic bradycardia s/p pacemaker, CKD III, chronic diastolic CHF, EF 50% in 02/2021, moderate mitral regurgitation and aortic regurgitation presented to ER with complaint of mechanical fall on 10/04/21 and left hip pain and found to have Left displaced subcapital femoral neck fracture. Left hip x-ray: Displaced transcervical fracture left femoral neck. Additional additional images obtained: Demonstrate left hip fracture to be displaced subcapital fracture CT head and C-spine without acute abnormality, CXR unremarkable POD#2 s/p left anterior hip hemiarthroplasty by Dr. Davila PT eval noted Patient's Hb is 7.8 today. Likely acute on chronic anemia from surgery. However, with patient being on chronic eliquis, will hold off discharge for today and monitor Hb for another day to ensure it's stable (3) Urinary retention: Plan: There was initial concern about possible urinary retention but this is ruled out. Patient reports no trouble urinating (4) Elevated troponin I level: Plan: Troponin up-trending overnight 0.111 -> 0.250 -> 0.285, was initially placed on IV heparin drip, overnight, now downtrending, CK: 257 Cards evaluated- patient is high risk for procedure but further cardiac eval at this time wound not likely reduce risk of perioperative complications Troponin downtrending today with repeat 0.159, no chest pain (5) CAD (coronary artery disease): Plan: S/p CABG Continue aspirin, atorvastatin, carvedilol, losartan (6) CKD (chronic kidney disease), stage III: Plan: Cr initially 1.6 but returned to baseline (baseline 1.3-1.5) Cr is 1.6 today Monitor renal functions, avoid nephrotoxic agents when possible (7) Atrial fibrillation: Plan: Chronic atrial fibrillation on Eliquis Eliquis has been resumed Continue carvedilol (8) CHF (congestive heart failure): Plan: History chronic systolic, diastolic heart failure. EF 50% in 02/2021 Appears euvolemic Holding lasix for now per Cards. Plan to resume on discharge (9) Diabetes mellitus, type II: Plan: A1c: 6.0 on 05/04/2021 Hold Metformin NovoLog sliding scale per protocol A1c is 6.3 (10) Bradycardia: (11) S/P cardiac pacemaker procedure: Plan: History symptomatic bradycardia s/p pacemaker (12) HTN (hypertension): Plan: Continue carvedilol, losartan (13) HLD (hyperlipidemia): Plan: Continue atorvastatin (14) Chronic anemia: Plan: Acute on chronic Hb dropped from 9.7 preop to 7.8 today. Possible due to blood loss during surgery Monitor DVT Prophylaxis on eliquis DNR/DNI as per discussion with pt Follows with Dr Vineet Haney for routine care Admission and Anticipated Discharge Date Admission Date: October 05, 2021 Subjective 86-year-old male with PMH DM II atrial fibrillation on chronic Eliquis, h/o symptomatic bradycardia s/p pacemaker, CKD III, chronic diastolic CHF, EF 50% in 02/2021, moderate mitral regurgitation and aortic regurgitation presented to ER with complaint of mechanical fall on 10/04/21 and left hip pain and found to have Left displaced subcapital femoral neck fracture. S/P Left Anterior hip hemiarthroplasty on 10/07/21 Patient seen and examined this morning. Reports only mild pain at surgical site with activity. Denies any other complaints. Physical Exam Constitutional: + well hydrated; no acute distress and not obese ENMT: external ear and nose normal, oropharynx normal Respiratory: normal respiratory effort, lungs clear to auscultation Cardiovascular: Rate/Rhythm: regular rate and regular rhythm S1 S2 Gastrointestinal (Abdomen): normal bowel sounds, soft, nontender, no hepatosplenomegaly Musculoskeletal: Clean dressing over surgical site No pedal edema Neurologic: PERRL, EOMI, accommodation nl, no face palsy, no dysarthria Psychiatric: A+Ox3, euthymic affect Results & Data Results & Data ([facility]) Vital Signs (Past 12 Hours) Vital Signs Temp Pulse Pulse Resp BP BP Pulse Ox 10/09/21 08:00 10/09/21 07:35 36.3 C L 67 18 146/74 H 100 10/09/21 03:44 60 10/09/21 02:33 36.6 C 60 18 127/61 99 10/08/21 23:00 36.7 C 60 18 93/58 L 98 Pulse Ox 10/09/21 08:00 93 10/09/21 07:35 10/09/21 03:44 10/09/21 02:33 10/08/21 23:00 Laboratory Results Abnormal lab results 10/08/21 10/08/21 10/08/21 Range/Units 11:34 16:35 20:49 WBC (4.8-10.8) K/uL RBC (4.7-6.1) M/uL Hgb (14.0-18.0) g/dL Hct (42-52) % RDW Std Deviation (36.4-46.3) fL RDW Coeff of [place] (11.5-14.5) % Chloride (98-107) mmol/L BUN (7-18) mg/dl Creatinine (0.6-1.4) mg/dl BUN/Creatinine Ratio (10-20) Glucose (70-99) mg/dl POC Glucose 205 H 123 H 101 H (70-99) mg/dl Calcium (8.5-10.1) mg/dl 10/09/21 10/09/21 10/09/21 Range/Units 07:08 07:08 07:27 WBC 16.61 H (4.8-10.8) K/uL RBC 2.46 L (4.7-6.1) M/uL Hgb 7.8 L (14.0-18.0) g/dL Hct 24.1 L (42-52) % RDW Std Deviation 52.5 H (36.4-46.3) fL RDW Coeff of [place] 14.9 H (11.5-14.5) % Chloride 109 H (98-107) mmol/L BUN 61 H (7-18) mg/dl Creatinine 1.60 H (0.6-1.4) mg/dl BUN/Creatinine Ratio 38.4 H (10-20) Glucose 123 H (70-99) mg/dl POC Glucose 133 H (70-99) mg/dl Calcium 8.3 L (8.5-10.1) mg/dl (1) CHF (congestive heart failure) Heart failure type: other Qualified Code(s): I50.9 - Heart failure, unspecified (2) HTN (hypertension) Hypertension type: unspecified Qualified Code(s): I10 - Essential (primary) hypertension (3) Fall Encounter type: initial encounter Qualified Code(s): W19.XXXA - Unspecified fall, initial encounter (4) Closed fracture of left hip Encounter type: initial encounter Qualified Code(s): S72.002A - Fracture of unspecified part of neck of left femur, initial encounter for closed fracture
[2021-10-09] MEDS: FOLIC ACID 1 MG TAB PO SCH (20:25)
[2021-10-09] MEDS: BIMATOPROST 0.01% OP SOLN 2.5 ML BTL OPB SCH (20:30)
[2021-10-10 06:25] LABS: Basophils # (auto) 0.02 K/uL (0-0.2); Basophils % (auto) 0.2 %; Eosinophils # (auto) 0.86 K/uL (0-0.5); Eosinophils % (auto) 6.6 %; Hematocrit (blood only) 24.2 % (42-52); Hemoglobin 7.8 g/dL (14.0-18.0); Immature Granulocytes # (auto) 0.02 K/uL (0.00-0.02); Immature Granulocytes % (auto) 0.2 %; Lymphocytes # (auto) 1.83 K/uL (1.2-3.4); Lymphocytes % (auto) 14.1 %; Mean Corpuscular Hemoglobin 31.8 pg (25-34); Mean Corpuscular Hgb Conc 32.2 g/dL (32-36); Mean Corpuscular Volume 98.8 fL (80-100); Mean Platelet Volume 10.2 fL (7.4-10.4); Monocytes # (auto) 0.65 K/uL (0.11-0.59); Neutrophils % (auto) 73.9 %; Platelet Count 198 K/uL (130-400); RDW Coefficient of Variation 14.8 % (11.5-14.5); RDW Standard Deviation 52.7 fL (36.4-46.3); Red Blood Count 2.45 M/uL (4.7-6.1); White Blood Count 12.98 K/uL (4.8-10.8)
[2021-10-10 06:47] LABS: BUN Creatinine Ratio 44.9 (10-20); Calcium 8.6 mg/dl (8.5-10.1); Creatinine Clr Calc Pharmacy 45.7 ml/min; Est GFR (African American) 62.3 ml/min; Est GFR (Non-African American) 53.7 ml/min
[2021-10-10 06:51] LABS: Partial Thromboplastin Ratio 1.1; Partial Thromboplastin Time 30.2 Seconds (21.0-31.0)
[2021-10-10 07:03] LABS: RBC Morphology Unremarkable
[2021-10-10] MEDS: BRIMONIDINE TARTRATE 0.2% 5ML OPL SCH (08:32)
[2021-10-10] MEDS: ASPIRIN 81 MG ECTAB PO SCH (08:32)
[2021-10-10] MEDS: ATORVASTATIN 40 MG TAB PO SCH (08:32)
[2021-10-10] MEDS: DORZOLAMIDE/TIMOLOL 22.3/6.8MG/ML 10 ML BTL OPL SCH (08:32)
[2021-10-10] MEDS: metFORMIN HCL 500 MG TAB PO SCH (08:32)
[2021-10-10] MEDS: LOSARTAN POTASSIUM 25 MG TAB PO SCH (08:32)
[2021-10-10] MEDS: ISOSORBIDE MONO EXTENDED REL 30 MG TABCR PO SCH (08:33)
[2021-10-10] MEDS: CYANOCOBALAMIN 500 MCG TABLET (VITAMIN B-12) PO SCH (08:33)
[2021-10-10] MEDS: APIXABAN 2.5 MG TAB PO SCH (08:33)
[2021-10-10] MEDS: oxyCODONE HCL IR 5 MG TAB (IMMEDIATE RELEASE) PO PRN (08:39)
[2021-10-10] MEDS: INSULIN ASPART PER UNIT SC SCH ×2 (08:39→12:27)
[2021-10-10] MEDS: carvediloL 3.125 MG TAB PO SCH (10:07)
--- NOTE | 2021-10-10 12:29 | Discharge Summary ---
Date of Service October 10, 2021 Admission HPI Per Admitting Provider Patient is 86-year-old male with PMH DM II atrial fibrillation on chronic Eliquis, h/o symptomatic bradycardia s/p pacemaker, CKD III, chronic diastolic CHF, EF 50% in 02/2021, moderate mitral regurgitation and aortic regurgitation presented to ER with complaint of fall and left hip pain. Patient states last night was getting undressed when his foot got caught causing him to fall and strike the back of his head. Patient denies any LOC, dizziness, chest pain, shortness of breath. He states he was unable to get off the floor all night. Complains of pain to left hip with attempted range of motion or walking. Denies any other known injury. Denies fever/chills, diaphoresis, N/V/D/C, MAYER, vision changes, neck pain, orthopnea, palpitations, cough, sore throat, choking, otalgia, rhinorrhea, abdominal pain, paresthesias, extremity edema, rashes, urinary symptoms. In ER vitals stable, troponin 0.1, paced rhythm on EKG. Left hip x-ray: Displaced transcervical fracture left femoral neck. CT head and C-spine without acute abnormality. Chest x-ray unremarkable. Admission Exam Per Admitting Provider General: no acute distress, WDWN elderly male Head: normocephalic, atraumatic Eyes: PERRL, EOM's intact, conjunctiva non-injected, anicteric ENT: normal inspection external ears, nose, mucous membranes moist Neck: supple, trachea midline Lungs: clear, no respiratory distress, no wheezing/rhonchi/rales CV: RRR, + murmur, no pretibial edema Abd: normal BS, soft, non-tender Ext: no cyanosis, no calf tenderness; LLE: left leg shortened and externally rotated, sensation to light touch intact, distal pulses intact Neuro: A&O x 3, no focal deficits noted, normal affect Skin: warm, dry Principal Diagnosis Fall Closed fracture of left hip post operative anemia Elevated troponin Discharge Exam CONSTITUTIONAL: WNWD, vitals as above, generally well-appearing, NAD EYES: normal conjunctivae, no scleral icterus ENT: external ear and nose normal, MMM NECK: trachea midline RESPIRATORY: clear to auscultation bilaterally, no crackles, rales or wheezes, normal respiratory effort CARDIOVASCULAR: regular rate and rhythm, S1 and 2 heard without murmurs, gallops or rubs, no JVD, no peripheral edema, no carotid bruits GASTROINTESTINAL: soft, nontender, ND, no guarding MUSCULOSKELETAL: moves all extremities equally, head is normocephalic and atraumatic SKIN: warm and dry NEUROLOGIC: No facial palsy, no dysarthria. low vision, some pupillary deviation, no sensory deficit, normal cognition, normal speech, no tremor PSYCHIATRIC: alert cooperative and oriented to person, place and time. Discharge Data Allergies Allergy/AdvReac Type Severity Reaction Status Date / Time No Known Allergies Allergy Verified 07/14/21 13:16 Consultations 10/05/21 12:13 ED Decision to Admit Stat 10/05/21 16:21 Consult Anesthesiology Routine Consult Anesthesiology Routine 10/06/21 08:00 Consult Cardiology Routine Procedures Performed Operation Date: 10/06/21 09:20 <No data on this case meets the specified criteria> Operation Date: 10/07/21 07:00 Actual Procedures p Left Anterior Hip Total Arthroplasty(Left) - Meek Davila DO Ordered Studies Laboratory Results WBC 12.98 K/uL (4.8-10.8) H 10/10/21 05:26 RBC 2.45 M/uL (4.7-6.1) L 10/10/21 05:26 Hgb 7.8 g/dL (14.0-18.0) L 10/10/21 05:26 Hct 24.2 % (42-52) L 10/10/21 05:26 MCV 98.8 fL (80-100) 10/10/21 05:26 MCH 31.8 pg (25-34) 10/10/21 05:26 MCHC 32.2 g/dL (32-36) 10/10/21 05:26 RDW Std Deviation 52.7 fL (36.4-46.3) H 10/10/21 05:26 RDW Coeff of Libia 14.8 % (11.5-14.5) H 10/10/21 05:26 Plt Count 198 K/uL (130-400) 10/10/21 05:26 MPV 10.2 fL (7.4-10.4) 10/10/21 05:26 Immature Gran % (Auto) 0.2 % 10/10/21 05:26 Neut % (Auto) 73.9 % 10/10/21 05:26 Lymph % (Auto) 14.1 % 10/10/21 05:26 Imperial % (Auto) 5.0 % 10/10/21 05:26 Eos % (Auto) 6.6 % 10/10/21 05:26 Baso % (Auto) 0.2 % 10/10/21 05:26 Neut # (Auto) 9.60 K/uL (1.4-6.5) H 10/10/21 05:26 Lymph # (Auto) 1.83 K/uL (1.2-3.4) 10/10/21 05:26 Imperial # (Auto) 0.65 K/uL (0.11-0.59) H 10/10/21 05:26 Eos # (Auto) 0.86 K/uL (0-0.5) H 10/10/21 05:26 Baso # (Auto) 0.02 K/uL (0-0.2) 10/10/21 05:26 Immature Gran # (Auto) 0.02 K/uL (0.00-0.02) 10/10/21 05:26 RBC Morphology Unremarkable 10/10/21 05:26 Acanthocytes (Spur) 1+ 10/05/21 11:04 PT 11.1 Seconds (9.0-12.0) 10/05/21 11:04 INR 1.1 (0.9-1.1) 10/05/21 11:04 APTT 30.2 Seconds (21.0-31.0) 10/10/21 05:26 PTT Ratio 1.1 10/10/21 05:26 Sodium 135 mmol/L (136-145) L 10/10/21 05:26 Potassium 4.0 mmol/L (3.5-5.1) 10/10/21 05:26 Chloride 105 mmol/L (98-107) 10/10/21 05:26 Carbon Dioxide 23 mmol/L (21-32) 10/10/21 05:26 Anion Gap 7.0 (3-11) 10/10/21 05:26 BUN 55 mg/dl (7-18) H 10/10/21 05:26 Creatinine 1.22 mg/dl (0.6-1.4) D 10/10/21 05:26 Est Cr Clr Drug Dosing 45.7 ml/min 10/10/21 05:26 Est GFR ( Amer) 62.3 ml/min 10/10/21 05:26 Est GFR (Non-Af Amer) 53.7 ml/min 10/10/21 05:26 BUN/Creatinine Ratio 44.9 (10-20) H 10/10/21 05:26 Glucose 97 mg/dl (70-99) 10/10/21 05:26 POC Glucose 134 mg/dl (70-99) H 10/10/21 11:42 Estimat Average Glucose 134 mg/dl 10/06/21 06:25 Hemoglobin A1c 6.3 % (4.5-5.6) H 10/06/21 06:25 Calcium 8.6 mg/dl (8.5-10.1) 10/10/21 05:26 Magnesium 2.3 mg/dl (1.8-2.4) 10/05/21 11:04 Total Bilirubin 0.7 mg/dl (0.2-1) 10/05/21 11:04 AST 19 U/L (15-37) 10/05/21 11:04 ALT 20 (12-78) 10/05/21 11:04 Alkaline Phosphatase 80 U/L (45-117) 10/05/21 11:04 Total Creatine Kinase 257 U/L (39-308) 10/05/21 11:04 Troponin I 0.159 ng/ml (0-0.045) H* 10/06/21 12:45 Total Protein 8.0 gm/dl (6.4-8.2) 10/05/21 11:04 Albumin 3.9 gm/dl (3.4-5.0) 10/05/21 11:04 Globulin 4.1 gm/dl (2.5-4.0) H 10/05/21 11:04 Albumin/Globulin Ratio 1.0 (0.9-2) 10/05/21 11:04 25-OH Vitamin D Total 33.0 ng/ml (30-100) 10/08/21 06:32 TSH 0.979 uIu/ml (0.300-4.500) 10/05/21 11:04 Urine Color Yellow 10/05/21 19:15 Urine Appearance Clear (Clear) 10/05/21 19:15 Urine pH 5.0 (4.5-7.5) 10/05/21 19:15 Ur Specific Kamrar 1.019 (1.000-1.030) 10/05/21 19:15 Urine Protein Trace (Negative) H 10/05/21 19:15 Urine Glucose (UA) Negative (Negative) 10/05/21 19:15 Urine Ketones Trace (Negative) H 10/05/21 19:15 Urine Blood Negative (Negative) 10/05/21 19:15 Urine Nitrite Negative (Negative) 10/05/21 19:15 Urine Bilirubin Negative (Negative) 10/05/21 19:15 Urine Urobilinogen Negative (Negative) 10/05/21 19:15 Ur Leukocyte Esterase Negative (Negative) 10/05/21 19:15 Urine WBC (Auto) 1-5 /hpf (0-5) 10/05/21 19:15 Urine RBC (Auto) 0-4 /hpf (0-4) 10/05/21 19:15 U Hyaline Cast (Auto) 5-10 /lpf (0-5) H 10/05/21 19:15 U Epithel Cells (Auto) 10-20 /lpf (0-5) H 10/05/21 19:15 Urine Bacteria (Auto) Negative (Negative) 10/05/21 19:15 Nasal Screen MRSA (PCR) Negative (Negative) 10/05/21 18:00 SARS-CoV-2, RNA, NAAT NEGATIVE (NEGATIVE) 10/10/21 Unknown Blood Type A Negative 10/05/21 11:04 Antibody Screen NEGATIVE 10/05/21 11:04 Impressions Chest X-Ray 10/05/21 10:47 XR chest 1V portable CLINICAL HISTORY: fall. Evaluate cardiopulmonary status COMPARISON STUDY: 03/09/2021 TECHNIQUE: 1 view of the chest FINDINGS: Single frontal view of the chest demonstrates the heart size to be at the upper limits of normal to mildly enlarged status post previous cardiothoracic surgery and pacer placement. The lungs are clear of alveolar opacities. There is no evidence for pleural effusion. There is no evidence for vascular congestion. There is no acute osseous pathology. IMPRESSION: No acute cardiopulmonary disease. ACT 112: Negative or not required by law. Electronically signed by: Wilmer Burnham M.D. 10/05/2021 11:39 AM Hip/Pelvis X-Ray 10/05/21 10:47 XR hip LT 2V w pelvis CLINICAL HISTORY: fall, pain. COMPARISON STUDY: No previous studies for comparison. TECHNIQUE: AP pelvis and 2 left hip views FINDINGS: Bones: There is a displaced, transcervical fracture of the left femoral neck. The femoral shaft is superiorly displaced in relation to the femoral head. Coxa varus deformity is present. The left femoral head maintains its anatomic position within the acetabulum. There is no lytic or blastic lesion. Joints: The right hip joint space is mildly narrowed. The remaining bones are in anatomic alignment. Soft tissues: There is no focal soft tissue abnormality. There is no radiopaque foreign body. IMPRESSION: Evidence for a displaced, transcervical fracture of the left femoral neck. ACT 112: Negative or not required by law. Electronically signed by: Wilmer Burnham M.D. 10/05/2021 11:[address] 10/05/21 10:48 CT cervical spine wo con CLINICAL HISTORY: fall . Patient on eloquence. Neck pain. COMPARISON STUDY: 02/04/2021 TECHNIQUE: Standard CT of the Cervical Spine was performed without IV contrast. A dose lowering technique was utilized adhering to the principles of ALARA. FINDINGS: Bones: The bones are osteopenic. There is no evidence for an acute fracture or malalignment. The heights of the vertebral bodies are maintained. The vertebral bodies are in anatomic alignment. The odontoid is intact. Degenerative changes are seen at the atlantoaxial articulation. Disc spaces:There is again fusion of the C2 and C3 vertebral bodies and partial fusion at C3-4 posteriorly as well. Moderate to marked disc space narrowing is again seen at C6-7 with endplate sclerosis and osteophyte formation. Mild disc space narrowing is seen involving the remaining disc space levels. Apophyseal joints:Degenerative apophyseal joint disease is also again seen bilaterally. Soft tissues:The prevertebral soft tissues are within normal limits. IMPRESSION: Osteopenia with no acute abnormality. 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 ACT 112: Negative or not required by law. Electronically signed by: Wilmer Burnham M.D. 10/05/2021 11:[address] 10/05/21 10:48 CT head/brain wo con CLINICAL HISTORY: fall. Patient on eliquis COMPARISON STUDY: 02/04/2021 CT DOSE: 995.74 mGy.cm TECHNIQUE: Standard CT of the Brain was performed without IV contrast. A dose lowering technique was utilized adhering to the principles of ALARA. FINDINGS: Extraaxial space: There is no evidence for subdural hematoma. There are no extra-axial fluid collections. Ventricles and cisterns: The ventricles are again mildly to moderately dilated bilaterally. There is no evidence for midline shift or mass effect. Parenchyma: There is no subarachnoid or intraparenchymal hemorrhage. There is no evidence for an acute infarct or cerebral edema. There is mild cerebral cortical atrophy and decreased attenuation in the periventricular white matter representing remote small vessel disease. There are no gross mass lesions. Osseous structures: There is no evidence for an acute fracture. The visualized paranasal sinuses are clear. The mastoid air cells are clear bilaterally. Soft tissues: There is no evidence for focal soft tissue swelling. IMPRESSION: No acute intracerebral pathology. Cerebral cortical atrophy and remote small vessel disease. ACT 112: Negative or not required by law. Electronically signed by: Wilmer Burnham M.D. 10/05/2021 11:24 AM Hip X-Ray 10/07/21 08:57 XR hip LT min 2V CLINICAL HISTORY: Post-Operative implant position TECHNIQUE: 2 views of the left hip were obtained. Comparison: Comparison is made to left hip radiographs 10/05/2021 FINDINGS: Patient is status post total hip arthroplasty with expected postsurgical changes including soft tissue swelling, subcutaneous emphysema, and surgical staple placement. No periarticular lucency or hardware fracture is seen. The bones are anatomically aligned. The bony mineralization is normal. IMPRESSION: Expected postoperative appearance status post placement of total hip arthroplasty. ACT 112: Negative or not required by law. Electronically signed by: Anthony Brown M.D. 10/07/2021 9:53 AM Hospital Course (1) Closed fracture of left hip: (2) Fall: 86-year-old male with PMH DM II atrial fibrillation on chronic Eliquis, h/o symptomatic bradycardia s/p pacemaker, CKD III, chronic diastolic CHF, EF 50% in 02/2021, moderate mitral regurgitation and aortic regurgitation presented to ER with complaint of mechanical fall on 10/04/21 and left hip pain and found to have Left displaced subcapital femoral neck fracture. Left hip x-ray: Displaced transcervical fracture left femoral neck. Additional additional images obtained: Demonstrate left hip fracture to be displaced subcapital fracture CT head and C-spine without acute abnormality, CXR unremarkable POD#2 s/p left anterior hip hemiarthroplasty by Dr. Davila PT eval noted H/H decreased from post-operative anemia 2/2 blood loss but stable. On apixaban per home regimen which is continued for stroke prevention and now post-operative DVT prevention. (3) Elevated troponin I level: troponin elevated with increased trend pre-operatively. Heparin started empirically. Per cardiology recommendations, he was high risk for procedure but further cardiac eval at this time wound not likely reduce risk of perioperative complications. He denied any chest pain throughout his admission . (4) CAD (coronary artery disease): S/p CABG Continue aspirin, atorvastatin, carvedilol, losartan per home regimen. (5) CKD (chronic kidney disease), stage III: Cr is around baseline. (6) Atrial fibrillation: Chronic atrial fibrillation on Eliquis Eliquis has been resumed Continue carvedilol per home regimen. (7) CHF (congestive heart failure): History chronic systolic, diastolic heart failure. EF 50% in 02/2021 remained euvolemic throughout his stay. resumed Lasix at time of discharge. On day of discharge, patient denied any urinary issues and pain was well managed on current oral regimen. He was tolerating weight on his LLE. Silverlon dressing in place and should stay in place for a total 7 days post- operatively. Therefore, incision site was not directly visualized. He is doing well overlal denying any chest pain, SOB or other issues today. HE was mentating at baseline, oxygenating well on room air and tolerating oral food. Sent to [facility] for additional rehab as a transition to home. Total Time Total Time Spent Total Time Spent (In Minutes): 60 Discharge Plan Discharge Items Patient Disposition: Transfer [facility] Reason For Visit: FEMUR FRACTURE Discharge Diagnosis: Fall Closed fracture of left hip Elevated troponin Condition on Discharge: Good Activity: As commented below Activity Comment: Per Physical therapist instruction Non-emergency contact: Primary Care Provider and Surgeon Call non-emergency contact if: you have any medication questions and your symptoms worsen Follow-up/Referrals: Jaelyn Pemberton MD [Outside Practitioners] - Diet: Carb Consistent or DM2 and Heart Healthy Addtl Attending Provider Instructions: Mr Padilla. You presented to the hospital after a fall and left hip pain. You were evaluated and found to have a left femoral fracture for which you had surgery. You are being discharged to [facility] for rehab. Please continue to take your medications as prescribed. Please ensure you follow orthopedic instructions as detailed below. It was a pleasure taking care of you! Please call if you have any questions or problems. You can reach a [facility] hospitalist on duty at [facility] 24 hours a day by calling [phone]. Take care of yourself. Jimena Thompson, DO [facility] Provider Instructions: ORTHOPEDIC INSTRUCTIONS Hip Hemiarthroplasty Activity and Therapy Recommendations: 1. You were shown a series of exercises in the hospital. Do these exercises three times each day if you are able. 2. Get up and walk several times each day if you are capable. Make sure you have assistance is needed. For the first four weeks, try not to stand or walk for more than one hour at a time. If you do stand or walk for more than one hour, you will not hurt anything, but your leg will likely swell. 3. As you feel comfortable, you may change from the walker or crutches to a cane and then to independent walking if you are able. Please be safe. Medications: 1. Narcotic You will likely be sent from the hospital with the narcotic pain medication that worked best throughout your stay. 2. Eliquis-continue taking your Eliquis as instructed. 3. Other medications may be given for specific circumstances. If you have any questions, please call the office at [phone]. 4. Resume previous home medications unless otherwise instructed TEDs/Elastic Stockings: The white elastic stockings help limit swelling and prevent blood clots from forming in your legs. The more you wear them, the more they work. Wear them for six weeks. Dressing Care: Leave the Silverlon dressing in place for 7 days. After 7 days you may remove the dressing. If the incision is not draining then you may leave the becky open to air. If there is a little bit of drainage or if the becky are getting stuck on your clothing then cover the incision with a dry dressing. The becky will be removed at your 2 week follow-up appointment. Showering: You may shower with the Silverlon dressing in place. Do not let the shower spray hit the dressing directly. Pat the Silverlon dressing dry. If the dressing becomes wet underneath, then simply remove the dressing. Keep the incision dry until you are 7 days out from the day of surgery. After 7 days you may remove the Silverlon dressing and shower with the becky exposed. Let soapy water run over the becky and pat them dry. Do not scrub or soak the incision. Things To Watch For: 1. Drainage from the incision site that occurs more than one week after your surgery. 2. Increased redness at the incision site. 3. Fever above 102 degrees Fahrenheit. 4. Unusual chest pain or shortness of breath. 5. Call [facility] at with any of the above problems Follow-Up Visit: Follow-up with Dr. Davila's PA (Meek Downey) 2-3 weeks after your day of surgery. He will remove your becky and answer any questions. If you have any additional questions or concerns, Dr Davila is usually in the office at the same time and will be available Please call the office to make an appointment for a time that works for you. Pending Studies at Discharge: No Stand-Alone Forms: My [facility] Skilled Items Patient informed of condition?: Yes DNR: Yes Discharge Level of Care: Skilled Communicable Disease: No Discharge Prognosis: Stable Lines: None Urinary Catheter: No Medications and DC Order Prescriptions: Continued metformin 500 mg Tablet 500 mg PO BIDM RF: 0 aspirin 81 mg Tablet,Delayed Release (Dr/Ec) 81 mg PO QAM RF: 0 dorzolamide-timolol 22.3-6.8 mg/mL Drops 1 drp OPL BID RF: 0 Lumigan 0.01 % Drops 1 drp OPB HS RF: 0 brimonidine 0.2 % drops 1 drp OPL TID RF: 0 Vitron-C 65 mg iron- 125 mg tablet,delayed release (DR/EC) 1 tab PO 3XWK RF: 0 furosemide 40 mg tablet 40 mg PO QAM RF: 0 potassium chloride [Klor-Con M20] 20 mEq tablet,ER particles/crystals 10 meq PO QAM RF: 0 folic acid 1 mg tablet 1 mg PO HS RF: 0 Eliquis 2.5 mg tablet 2.5 mg PO BID RF: 0 cyanocobalamin (vitamin B-12) 1,000 mcg tablet 1,000 mcg PO QAM RF: 0 carvedilol 3.125 mg tablet 3.125 mg PO BID RF: 0 losartan 25 mg Tablet 25 mg PO QAM Qty: 30 RF: 0 isosorbide mononitrate 30 mg Tablet Extended Release 24 Hr 30 mg PO QAM Qty: 30 RF: 0 potassium chloride [Klor-Con 10] 10 mEq Tablet Extended Release 5 meq PO HS RF: 0 atorvastatin 40 mg tablet 40 mg PO QAM RF: 0 nitroglycerin 0.4 mg Tablet, Sublingual 0.4 mg sublingual UD PRN (Reason: Angina) RF: 0 Discharge Orders: Discharge Order (Routine); Ordered 10/10/21 Ordered By: Jimena Jay/Other Patient Handouts: High Blood Sugar (Hyperglycemia), Hypoglycemia (Low Blood Sugar), Managing Type 2 Diabetes Admission Data Admit Date/Time: 10/05/21 12:52 Attending Provider: Jimena Thompson Admit Provider: Bryan Medel Primary Care Provider: Cady Russell Other Providers: Radha Escalante ; Jaelyn Pemberton ; Bryan Medel ; Meek Quiroz ; Carlos Clement ; Kamran Navarro ; Jimena Thompson
== END 2021-10-10 14:10 | DRG 522 ==
LOC: ED 10:41 → SUATTDRO 12:52 → SUPCPDRO 12:52 → EDINP 12:52 → 2N 15:34

== ENCOUNTER 2023-05-24 09:43 | Inpatient (IN) ==
--- NOTE | 2023-05-24 09:59 | Emergency Department Note ---
History of Present Illness General Chief complaint: Fall Stated complaint: FALL Time Seen by Provider: 05/24/23 09:44 History of Present Illness 88-year-old male presents from home via EMS reportedly multiple falls over the past few days had fallen a few days ago was seen at [place] had a CT of his brain which was negative. Patient is on Eliquis due to A-fib. Patient fell again at home today was on the floor for prolonged period of time. Patient any complaints specific to headache abdominal pain. There are no other mitigating or alleviating factors. Patient is very poor historian to his presentation Home Medications Medication Instructions Recorded Confirmed Type aspirin 81 mg tablet,delayed 81 mg PO QAM 12/31/19 11/16/21 History release bimatoprost 0.01 % eye drops 1 drp OPB HS 12/31/19 11/16/21 History (Rosibel) brimonidine 0.2 % eye drops 1 drp OPL TID 12/31/19 11/16/21 History dorzolamide 22.3 mg-timolol 6.8 1 drp OPL BID 12/31/19 11/16/21 History mg/mL eye drops metformin 500 mg tablet 500 mg PO BIDM 12/31/19 11/16/21 History carvedilol 3.125 mg tablet 3.125 mg PO BID 02/04/21 11/16/21 History cyanocobalamin (vitamin B-12) 1,000 mcg PO QAM 02/04/21 11/16/21 History 1,000 mcg tablet losartan 25 mg tablet 25 mg PO QAM #30 tabs 03/05/21 11/16/21 Rx isosorbide mononitrate 30 mg 30 mg PO QAM #30 tabs 03/11/21 11/16/21 Rx tablet,extended release 24 hr apixaban 2.5 mg tablet (Eliquis) 2.5 mg PO BID 05/23/21 11/16/21 History folic acid 1 mg tablet 1 mg PO HS 05/23/21 11/16/21 History furosemide 40 mg tablet 40 mg PO QAM 05/23/21 11/16/21 History iron,carbonyl 65 mg-vitamin C 125 1 tab PO 3XWK 05/23/21 11/16/21 History mg tablet,delayed release (Vitron-C) potassium chloride 20 mEq 10 meq PO QAM 05/23/21 11/16/21 History tablet,extended release(part/cryst) (Klor-Con M) atorvastatin 40 mg tablet 40 mg PO QAM 07/14/21 11/16/21 History nitroglycerin 0.4 mg sublingual 0.4 mg sublingual UD PRN Angina 07/14/21 11/16/21 History tablet potassium chloride 10 mEq 5 meq PO HS 07/14/21 11/16/21 History tablet,extended release (Klor-Con) Allergies Allergy/AdvReac Type Severity Reaction Status Date / Time No Known Allergies Allergy Verified 10/17/21 08:55 Past Med/Surg History Medical History Anemia Aortic stenosis Atrial fibrillation on eliquis bid--follows with Dr. Layla Carmichael CAD (coronary artery disease) CHF (congestive heart failure) CKD (chronic kidney disease), stage III Glaucoma HLD (hyperlipidemia) HTN (hypertension) Mitral regurgitation Neuropathy On anticoagulant therapy eliquis bid Walker as ambulation aid Surgical History History of bilateral cataract extraction History of colonoscopy History of coronary artery bypass graft 2007 in the [facility] History of open reduction and internal fixation (ORIF) procedure left ankle--hardware in place S/P cardiac pacemaker procedure 2016--[facility] Family History Mother Heart disease Father Prostate cancer Other No family history of adverse response to anesthesia Social History Smoking Status: Former smoker Tobacco Type: Pipe Second Hand Exposure: Yes; Do You Dip or Chew Tobacco: No; Hx Alcohol Use: Yes Alcohol type: wine Alcohol Intake Frequency: Monthly or Less Hx Substance Use: No Preferred Language: Puerto Rican Communication Ability: Effective Communication Ability Comment: pt does sign own consents Receptionist Telephone Operator Required: Yes Beliefs That Will Affect Care: None marital status: Single Current Living Situation: Alone and Personal Care Facility Current Living Situation Comment: [facility] How many Children do You have: 0 Feels Safe at Home: Yes Assistive Devices: Walker Review of Systems A total of 10 systems reviewed and were otherwise negative Cardiovascular: no chest pain Gastrointestinal: no abdominal pain Physical Exam Vital Signs Vital Signs - 24 hr 05/24/23 09:56 05/24/23 09:56 05/24/23 10:12 Temperature 36.3 C L Temperature Source Oral Pulse Rate 61 60 Pulse Rate [Apical] Pulse Rate from SpO2 Sensor Respiratory Rate 14 Blood Pressure 157/72 H Blood Pressure [Right Arm] Blood Pressure Mean 100 Blood Pressure Mean [Right Arm] Pulse Oximetry 95 Oxygen Delivery Method Room Air Room Air Sepsis New/Unexplained Change in Mental Status No Sepsis Action Taken by Nursing No Action Required 05/24/23 10:00 05/24/23 10:00 05/24/23 10:30 Temperature Temperature Source Pulse Rate 60 Pulse Rate [Apical] Pulse Rate from SpO2 Sensor 60 Respiratory Rate Blood Pressure 133/55 L 159/66 H Blood Pressure [Right Arm] Blood Pressure Mean 89 97 Blood Pressure Mean [Right Arm] Pulse Oximetry 97 Oxygen Delivery Method Room Air Sepsis New/Unexplained Change in Mental Status Sepsis Action Taken by Nursing 05/24/23 10:30 05/24/23 10:54 05/24/23 10:56 Temperature 36.3 C L Temperature Source Oral Pulse Rate 60 Pulse Rate [Apical] 60 60 Pulse Rate from SpO2 Sensor 60 Respiratory Rate 17 18 18 Blood Pressure Blood Pressure [Right Arm] 159/66 H 159/66 H Blood Pressure Mean Blood Pressure Mean [Right Arm] 97 97 Pulse Oximetry 99 98 98 Oxygen Delivery Method Room Air Room Air Room Air Sepsis New/Unexplained Change in Mental Status Sepsis Action Taken by Nursing 05/24/23 11:00 05/24/23 11:30 Temperature Temperature Source Pulse Rate Pulse Rate [Apical] Pulse Rate from SpO2 Sensor Respiratory Rate Blood Pressure Blood Pressure [Right Arm] 129/55 L 129/55 L Blood Pressure Mean Blood Pressure Mean [Right Arm] 79 79 Pulse Oximetry Oxygen Delivery Method Sepsis New/Unexplained Change in Mental Status Sepsis Action Taken by Nursing GENERAL: Patient is awake alert in no acute distress patient is resting comfortably and showing no signs of anxiety EYES: The conjunctivae are clear. The pupils are round and reactive. Head exam reveals area of bruising in the supraorbital region on the right side EARS, NOSE, MOUTH AND THROAT: The nose is without any evidence of any deformity. Mucous membranes are moist. Tongue is midline. NECK: The neck is nontender and supple. Full range of motion nontender in the midline RESPIRATORY: Normal respiratory effort is noted there is no evidence of wheezing rhonchi or rales CARDIOVASCULAR: Regular rate and rhythm noted there no murmurs rubs or gallops normal S1 normal S2. GASTROINTESTINAL: The abdomen is soft. Abdomen is nontender. BACK: No midline tenderness or or step-off noted range of motion in flexion exte nsion as well as rotation no signs of muscle spasm noted MUSCULOSKELETAL/EXTREMITIES: There is no evidence of gross deformity full range of motion is noted in the hips and shoulders. Patient has abrasions to the bilateral lower extremities around the knee region SKIN: There is no obvious evidence of any rash. There are no petechiae, pallor or cyanosis noted. NEUROLOGIC: Patient is awake alert and oriented x3 strength is symmetric Course Reevaluation(s) Reevaluation #1: Patient is resting in no distress was receiving IV fluids and Rocephin Time: 13:00 Consultations Consultation #1: Case was discussed with the [facility]ist for admission Time: 13:00 Medical Decision Making Medical Records Attestation: I reviewed the patient's medical records. Home Medications Current Medication List: was personally reviewed by me Laboratory Data Attestation: I reviewed the patient's lab results. Labs interpreted by me mild increase in BUN and glucose 05/24/23 10:43 05/24/23 10:43 Lab Results 05/24/23 05/24/23 05/24/23 Range/Units 10:43 10:43 10:43 WBC 8.69 (4.8-10.8) K/ul RBC 3.13 L (4.70-6.10) M/uL Hgb 10.3 L (14.0-18.0) g/dl Hct 30.6 L (42.0-52.0) % MCV 97.8 (80.0-100.0) fL MCH 32.9 (25.0-34.0) pg MCHC 33.7 (32.0-36.0) g/dL RDW Std Deviation 51.9 H (36.4-46.3) fL RDW Coeff of [place] 14.6 H (11.5-14.5) % Plt Count 163 (130-400) K/uL MPV 10.4 (9.4-12.4) fL Immature Gran % (Auto) 0.5 % Neut % (Auto) 84.4 % Lymph % (Auto) 6.8 % [place] % (Auto) 6.0 % Eos % (Auto) 2.0 % Baso % (Auto) 0.3 % Neut # (Auto) 7.34 H (1.40-6.50) K/uL Lymph # (Auto) 0.59 L (1.2-3.4) K/uL [place] # (Auto) 0.52 (0.11-0.59) K/uL Eos # (Auto) 0.17 (0-0.50) K/uL Baso # (Auto) 0.03 (0-0.2) K/uL Immature Gran # (Auto) 0.04 (0.01-0.20) K/uL Sodium 135 L (136-145) mmol/L Potassium 3.8 (3.5-5.1) mmol/L Chloride 103 (98-107) mmol/L Carbon Dioxide 24 (21-32) mmol/L Anion Gap 8 (3-11) BUN 39 H (6-23) mg/dl Creatinine 1.22 (0.6-1.4) mg/dl Est Cr Clr Drug Dosing Not Reportable Est GFR ( Amer) 61.4 ml/min Est GFR (Non-Af Amer) 53.0 ml/min BUN/Creatinine Ratio 32.0 H (10-20) Glucose 174 H (70-99(Fasting)) mg/dl Lactate 1.4 (0.4-2.0) mmol/L Calcium 9.2 (8.6-10.3) mg/dl Magnesium 2.1 (1.7-2.4) mg/dl Total Bilirubin 1.3 H (0.2-1.0) mg/dl Direct Bilirubin 0.4 H (0-0.2) mg/dl AST 23 (13-39) U/L ALT 11 (7-52) U/L Alkaline Phosphatase 52 (34-104) U/L Troponin I High Sens 65.7 H* (0-20) pg/ml Total Protein 6.6 (6.0-8.3) gm/dl Albumin 3.7 (3.4-5.0) gm/dl Procalcitonin (0-0.5) ng/ml 05/24/ Range/Units 10:43 WBC (4.8-10.8) K/ul RBC (4.70-6.10) M/uL Hgb (14.0-18.0) g/dl Hct (42.0-52.0) % MCV (80.0-100.0) fL MCH (25.0-34.0) pg MCHC (32.0-36.0) g/dL RDW Std Deviation (36.4-46.3) fL RDW Coeff of [place] (11.5-14.5) % Plt Count (130-400) K/uL MPV (9.4-12.4) fL Immature Gran % (Auto) % Neut % (Auto) % Lymph % (Auto) % [place] % (Auto) % Eos % (Auto) % Baso % (Auto) % Neut # (Auto) (1.40-6.50) K/uL Lymph # (Auto) (1.2-3.4) K/uL [place] # (Auto) (0.11-0.59) K/uL Eos # (Auto) (0-0.50) K/uL Baso # (Auto) (0-0.2) K/uL Immature Gran # (Auto) (0.01-0.20) K/uL Sodium (136-145) mmol/L Potassium (3.5-5.1) mmol/L Chloride (98-107) mmol/L Carbon Dioxide (21-32) mmol/L Anion Gap (3-11) BUN (6-23) mg/dl Creatinine (0.6-1.4) mg/dl Est Cr Clr Drug Dosing Est GFR ( Amer) ml/min Est GFR (Non-Af Amer) ml/min BUN/Creatinine Ratio (10-20) Glucose (70-99(Fasting)) mg/dl Lactate (0.4-2.0) mmol/L Calcium (8.6-10.3) mg/dl Magnesium (1.7-2.4) mg/dl Total Bilirubin (0.2-1.0) mg/dl Direct Bilirubin (0-0.2) mg/dl AST (13-39) U/L ALT (7-52) U/L Alkaline Phosphatase (34-104) U/L Troponin I High Sens (0-20) pg/ml Total Protein (6.0-8.3) gm/dl Albumin (3.4-5.0) gm/dl Procalcitonin 0.09 (0-0.5) ng/ml Imaging Data Attestation: I personally reviewed and interpreted this imaging study as follows: My Impression: Chest x-ray interpreted by me negative for infiltrate Radiologist's Impression: Chest X-Ray 05/24/23 09:52 XR chest 1V portable HISTORY: 88 years-old Male Sepsis acute sepsis COMPARISON: Chest radiograph 03/11/2000 and TECHNIQUE: AP view of the chest FINDINGS: Cardiac silhouette is enlarged. Prior median sternotomy with CABG. Left subclavi an pacer. No pneumothorax. Trace pleural effusions with mild subsegmental bibasilar atelectasis. Cholelithiasis. Bones appear grossly intact. IMPRESSION: 1. Cardiomegaly without overt pulmonary edema. 2. Trace pleural effusions. 3. Cholelithiasis. ACT 112: Negative or not required by law. The above report was generated using voice recognition software. It may contain grammatical, syntax or spelling errors. Electronically signed by: Bon Alfonso M.D. 05/24/2023 10:[address] 05/24/23 09:53 CT OF THE HEAD WITHOUT CONTRAST CLINICAL HISTORY: Fall. COMPARISON STUDY: Head CT October 05, 2021. CT DOSE: 625.80 mGy.cm TECHNIQUE: Helical axial images of the head were obtained without IV contrast. Automated exposure control was utilized for the study. A dose lowering technique was utilized adhering to the principles of ALARA. FINDINGS: No acute intracranial hemorrhage, midline shift or mass effect is present. Ventricular dilatation is unchanged. The basal cisterns are patent. No extra-axial collections are present. There are no findings to suggest acute dural sinus thrombosis or acute territorial infarct. No significant calvarial abnormalities are present. Visualized portions of the sinuses and mastoid air cells are clear. IMPRESSION: 1. No acute intracranial findings. No change in appearance of the brain. 2. No calvarial fracture. ACT 112: Negative or not required by law. Electronically signed by: Parish Hooks M.D. 05/24/2023 11:59 AM ECG Data Attestation: I personally reviewed and interpreted this ECG as follows: Additional Comments: Paced at [address] segment elevation or depression the left axis deviation is present as interpreted by me Telemetry was ordered, interpreted by me as paced rhythm at 61 MDM Narrative Medical decision making differential diagnosis includes sepsis, electrolyte abnormality, metabolic derangement, urinary section, intracranial hemorrhage Check labs, sepsis labs, CAT scan External medical records were reviewed by me EMS run report was reviewed by me Patient will be admitted for frequent falls head trauma dehydration and and an elevated troponin Impression & Plan Head trauma, Fall, Acute UTI (urinary tract infection), Acute dehydration Discharge Plan Visit Data Chief Complaint: Fall Stated Complaint: FALL ED Provider: Marcos Jarvis Discharge Problem: Head trauma, Fall, Acute UTI (urinary tract infection), Acute dehydration Patient Disposition: Admitted As Inpatient Forms Stand Alone Forms: My [facility] Prescriptions Prescriptions: No Action metformin 500 mg Tablet 500 mg PO BIDM aspirin 81 mg Tablet,Delayed Release (Dr/Ec) 81 mg PO QAM dorzolamide-timolol 22.3-6.8 mg/mL Drops 1 drp OPL BID Lumigan 0.01 % Drops 1 drp OPB HS brimonidine 0.2 % drops 1 drp OPL TID Vitron-C 65 mg iron- 125 mg tablet,delayed release (DR/EC) 1 tab PO 3XWK Rx Instructions: take once a day on mon,wed,fri only furosemide 40 mg tablet 40 mg PO QAM potassium chloride [Klor-Con M20] 20 mEq tablet,ER particles/crystals 10 meq PO QAM folic acid 1 mg tablet 1 mg PO HS Eliquis 2.5 mg tablet 2.5 mg PO BID cyanocobalamin (vitamin B-12) 1,000 mcg tablet 1,000 mcg PO QAM carvedilol 3.125 mg tablet 3.125 mg PO BID losartan 25 mg Tablet 25 mg PO QAM Qty: 30 0RF isosorbide mononitrate 30 mg Tablet Extended Release 24 Hr 30 mg PO QAM Qty: 30 0RF potassium chloride [Klor-Con 10] 10 mEq Tablet Extended Release 5 meq PO HS atorvastatin 40 mg tablet 40 mg PO QAM nitroglycerin 0.4 mg Tablet, Sublingual 0.4 mg sublingual UD PRN (Reason: Angina) Referrals Referrals: Cady Russell PA-C [Primary Care Provider] -
--- NOTE | 2023-05-24 10:39 | XRay Report ---
XR chest 1V portable HISTORY: 88 years-old Male Sepsis acute sepsis COMPARISON: Chest radiograph 03/11/2000 and TECHNIQUE: AP view of the chest FINDINGS: Cardiac silhouette is enlarged. Prior median sternotomy with CABG. Left subclavian pacer. No pneumoth orax. Trace pleural effusions with mild subsegmental bibasilar atelectasis. Cholelithiasis. Bones nabil ear grossly intact. IMPRESSION: 1. Cardiomegaly without overt pulmonary edema. 2. Trace pleural effusions. 3. Cholelithiasis. ACT 112: Negative or not required by law. The above report was generated using voice recognition software. It may contain grammatical, syntax o r spelling errors. Electronically signed by: Bon Alfonso M.D. 05/24/2023 10:37 AM
[2023-05-24 11:05] LABS: Basophils # (auto) 0.03 K/uL (0-0.2); Basophils % (auto) 0.3 %; Eosinophils # (auto) 0.17 K/uL (0-0.50); Hematocrit (blood only) 30.6 % (42.0-52.0); Hemoglobin 10.3 g/dl (14.0-18.0); Immature Granulocytes # (auto) 0.04 K/uL (0.01-0.20); Immature Granulocytes % (auto) 0.5 %; Lymphocytes # (auto) 0.59 K/uL (1.2-3.4); Lymphocytes % (auto) 6.8 %; Mean Corpuscular Hemoglobin 32.9 pg (25.0-34.0); Mean Corpuscular Hgb Conc 33.7 g/dL (32.0-36.0); Mean Corpuscular Volume 97.8 fL (80.0-100.0); Mean Platelet Volume 10.4 fL (9.4-12.4); Monocytes # (auto) 0.52 K/uL (0.11-0.59); Neutrophils # (auto) 7.34 K/uL (1.40-6.50); Neutrophils % (auto) 84.4 %; Platelet Count 163 K/uL (130-400); RDW Coefficient of Variation 14.6 % (11.5-14.5); RDW Standard Deviation 51.9 fL (36.4-46.3); Red Blood Count 3.13 M/uL (4.70-6.10); White Blood Count 8.69 K/ul (4.8-10.8)
[2023-05-24 11:23] LABS: Alanine Aminotransferase 11 U/L (7-52); Albumin Level 3.7 gm/dl (3.4-5.0); Alkaline Phosphatase 52 U/L (34-104); Anion Gap 8 (3-11); Aspartate Aminotransferase 23 U/L (13-39); Bilirubin Direct 0.4 mg/dl (0-0.2); Bilirubin,Total 1.3 mg/dl (0.2-1.0); Blood Urea Nitrogen 39 mg/dl (6-23); Calcium 9.2 mg/dl (8.6-10.3); Carbon Dioxide 24 mmol/L (21-32); Chloride 103 mmol/L (98-107); Est GFR (African American) 61.4 ml/min; Glucose 174 mg/dl (70-99(Fasting)); Magnesium 2.1 mg/dl (1.7-2.4); Potassium 3.8 mmol/L (3.5-5.1); Sodium 135 mmol/L (136-145); Total Protein 6.6 gm/dl (6.0-8.3)
[2023-05-24 11:32] LABS: Troponin I High Sensitivity 65.7 pg/ml (0-20)
--- NOTE | 2023-05-24 12:00 | CT Scan Report ---
CT OF THE HEAD WITHOUT CONTRAST CLINICAL HISTORY: Fall. COMPARISON STUDY: Head CT October 05, 2021. CT DOSE: 625.80 mGy.cm TECHNIQUE: Helical axial images of the head were obtained without IV contrast. Automated exposure con trol was utilized for the study. A dose lowering technique was utilized adhering to the principles o f ALARA. FINDINGS: No acute intracranial hemorrhage, midline shift or mass effect is present. Ventricular dila tation is unchanged. The basal cisterns are patent. No extra-axial collections are present. There are no findings to suggest acute dural sinus thrombosis or acute territorial infarct. No significant minoo varial abnormalities are present. Visualized portions of the sinuses and mastoid air cells are clear. IMPRESSION: 1. No acute intracranial findings. No change in appearance of the brain. 2. No calvarial fracture. ACT 112: Negative or not required by law. Electronically signed by: Parish Hooks M.D. 05/24/2023 11:59 AM
[2023-05-24] MEDS ORDERED: SODIUM CHLORIDE 0.9% 1000ML 1,000 ML IV ONE (12:25)
[2023-05-24] MEDS ORDERED: cefTRIAXone SODIUM 1,000 MG in DEXTROSE 5% AD-VAN 50 ML IV STA (12:25)
--- NOTE | 2023-05-24 12:43 | History & Physical Report ---
Date of Service May 24, 2023 Assessment & Plan (1) Falls frequently: (2) S/P hip replacement: (3) Persistent atrial fibrillation: (4) CKD (chronic kidney disease), stage III: (5) Chronic anemia: (6) Elevated troponin I level: (7) CHF (congestive heart failure): (8) Dizziness: Plan This is an 88-year-old male with PMH DM II, atrial fibrillation on chronic Eliquis, h/o symptomatic bradycardia s/p pacemaker, CKD III, chronic diastolic CHF (with EF 50% in 02/2021), moderate mitral regurgitation and aortic regurgitation, history of L hip fracture 2/2 fall with surgical repair in Sep 2021 who presents after multiple falls at home. Multiple falls Generalized weakness Acute metabolic encephalopathy Falls 3 days in a row at apartment, found on the ground overnight (currently lives in independent living apartment at [facility]) Was seen at [facility] yesterday and CT head was negative, discharged home VSS, Troponin elevated at 65.7 on admission UA unremarkable, CXR with cardiomegaly without overt pulmonary edema, trace pleural effusions Concern for polypharmacy due to h/o patient incorrectly taking medications May need discussion about benefit vs risk of continuing anticoagulation given frequent falls Orthostatic vitals, pacer interrogation, CK pending, fall precautions, PT/OT, appreciate CM involvement as family feels patient needs higher level of care Elevated troponin EKG with paced rhythm, no significant change from previous Missed medications x 2 days Trend troponin, monitor on telemetry CAD (coronary artery disease) S/p CABG. Continue aspirin, atorvastatin, carvedilol, losartan per home regimen CKD (chronic kidney disease), stage III Cr 1.22 (at baseline) Atrial fibrillation Chronic atrial fibrillation on Eliquis. Continue carvedilol per home regimen CHF (congestive heart failure) History chronic systolic, diastolic heart failure. EF 50% in 02/2021 Appeared dehydration initially, received 1 L NSS in ED. Will hold off on additional fluids for now Continue Lasix tomorrow. Monitor volume status closely DM II A1c 02 January 2023 Hold home agents SSI while in-patient BSG AC HS Mood disorder Continue SSRI DVT Ppx: Continue Eliquis Code status: DNR PCP: Pratima Dispo: Admitted to med/tele Patient seen in collaboration with Dr. Gamino. Please see addendum. I spent a total of 75 minutes coordinating, documenting, and providing care for this patient excluding time spent in the performance of separately billed services. History of Present Illness Chief Complaint: falls This is a 88-year-old male with PMH DM II, atrial fibrillation on chronic Eliquis, h/o symptomatic bradycardia s/p pacemaker, CKD III, chronic diastolic CHF, EF 50% in 02/2021, moderate mitral regurgitation and aortic regurgitation, history of left hip fracture in Sep 2021 with surgical repair who presents from independent living at [facility] with multiple falls in the past few days. History fully obtained from phone call with [id number], Ian, who helps organize patient's medications. Fell on Sunday and crawled to phone and called Ian, who helped get him up. 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 Fell again last evening and was found on the floor by neighbor and brought to [facility] for further evaluation. Is on Eliquis for history of persistent atrial fibrillation. Ian feels patient has been notably confused for the past week and did not take his medications yesterday or today as they were found in pillbox. There has been some issue with medication compliance previously as patient has poor vision and cannot see small pills to take or sometimes is forgetful and takes multiple doses at once. Also has not been writing down vitals and weight each day as he has previously done. Ian has been discussi ng with family today the need for patient to have higher level of care Per discussion with patient, he knows who he is not but where or why he is here. States last time he fell was a few months ago. Denies any pain but feels generally weak at this time. Denies chest pain, shortness of breath or abdominal pain. Remainder of ROS unobtainable due to cognitive state. Allergies Allergy/AdvReac Type Severity Reaction Status Date / Time No Known Allergies Allergy Verified 05/24/23 13:12 Home Medications Medication Instructions Recorded Confirmed Type aspirin 81 mg tablet,delayed 81 mg PO QAM 12/31/19 11/16/21 History release bimatoprost 0.01 % eye drops 1 drp OPB HS 12/31/19 05/24/23 History (Rosibel) brimonidine 0.2 % eye drops 1 drp OPL TID 12/31/19 05/24/23 History carvedilol 3.125 mg tablet 3.125 mg PO BID 02/04/21 05/24/23 History cyanocobalamin (vitamin B-12) 1,000 mcg PO QAM 02/04/21 05/24/23 History 1,000 mcg tablet isosorbide mononitrate 30 mg 30 mg PO QAM #30 tabs 03/11/21 05/24/23 Rx tablet,extended release 24 hr apixaban 2.5 mg tablet (Eliquis) 2.5 mg PO BID 05/23/21 05/24/23 History folic acid 1 mg tablet 1 mg PO HS 05/23/21 05/24/23 History furosemide 40 mg tablet 40 mg PO QAM 05/23/21 05/24/23 History iron,carbonyl 65 mg-vitamin C 125 1 tab PO 3XWK 05/23/21 05/24/23 History mg tablet,delayed release (Vitron-C) atorvastatin 40 mg tablet 40 mg PO QAM 07/14/21 05/24/23 History nitroglycerin 0.4 mg sublingual 0.4 mg sublingual UD PRN Angina 07/14/21 05/24/23 History tablet potassium chloride 10 mEq 5 meq PO HS 07/14/21 05/24/23 History tablet,extended release (Klor-Con) ferrous sulfate 325 mg (65 mg 65 mg PO QAM 05/24/23 05/24/23 History iron) tablet finasteride 5 mg tablet 5 mg PO QAM 05/24/23 05/24/23 History losartan 25 mg tablet 12.5 mg PO QAM 05/24/23 05/24/23 History metformin 500 mg tablet,extended 500 mg PO QAM 05/24/23 05/24/23 History release 24 hr sertraline 25 mg tablet 25 mg PO QAM 05/24/23 05/24/23 History Past Med/Surg History Medical History Anemia Aortic stenosis Atrial fibrillation on eliquis bid--follows with Dr. Layla Carmichael CAD (coronary artery disease) CHF (congestive heart failure) CKD (chronic kidney disease), stage III Glaucoma HLD (hyperlipidemia) HTN (hypertension) Mitral regurgitation Neuropathy On anticoagulant therapy arabella bid Walker as ambulation aid Surgical History History of bilateral cataract extraction History of colonoscopy History of coronary artery bypass graft 2007 in the [facility] History of open reduction and internal fixation (ORIF) procedure left ankle--hardware in place S/P cardiac pacemaker procedure 2016--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: Yes Beliefs That Will Affect Care: None marital status: Single Current Living Situation: Alone and Personal Care Facility Current Living Situation Comment: [facility] How many Children do You have: 0 Feels Safe at Home: Yes Assistive Devices: Walker Review of Systems Review of Systems: See HPI for limited ROS - remainder unobtainable 2/2 mental state Physical Exam Physical Exam: General Appearance: WD/WN, vitals as above, NAD, lying down, pleasantly confused Head: normocephalic, atraumatic Eyes: normal inspection, PERRL, conjunctivae normal, anicteric sclerae ENT: external ear and nose normal, oropharynx dry mucous membranes Neck: normal visual inspection, trachea midline, no thyromegaly Respiratory: normal respiratory effort, lungs clear to auscultation, no wheeze, rales, rhonchi. No accessory muscle use Cardiovascular: RRR, no murmur, normal peripheral pulses, no BLE edema. Vessels: no JVD Chest: normal inspection of chest Abdomen/GI: normal bowel sounds, soft, nontender, no hepatosplenomegaly Extremities/Musculoskeletal: no cyanosis or clubbing, extremities motor strength 5/5 Neurologic: PERRL, EOMI, accommodation nl, no face palsy, no dysarthria, CN's II-XI intact bilaterally and moves all extremities Psychiatric: A+O x person only Skin: no rashes, normal color, warm/dry Results & Data Results & Data Vital Signs (Past 12 Hours) Vital Signs Temp Pulse Pulse Resp BP BP Pulse Ox 05/24/23 11:30 129/55 L 05/24/23 11:00 129/55 L 05/24/23 10:56 36.3 C L 60 18 159/66 H 98 05/24/23 10:54 60 18 159/66 H 98 05/24/23 10:30 60 17 99 05/24/23 10:30 159/66 H 05/24/23 10:00 60 97 05/24/23 10:00 133/55 L 05/24/23 10:12 60 05/24/23 09:56 05/24/23 09:56 36.3 C L 61 14 157/72 H 95 O2 Del Method 05/24/23 11:30 05/24/23 11:00 05/24/23 10:56 Room Air 05/24/23 10:54 Room Air 05/24/23 10:30 Room Air 05/24/23 10:30 05/24/23 10:00 Room Air 05/24/23 10:00 05/24/23 10:12 05/24/23 09:56 Room Air 05/24/23 09:56 Room Air Laboratory Results Short CBC 05/24/23 Range/Units 10:43 WBC 8.69 (4.8-10.8) K/ul Hgb 10.3 L (14.0-18.0) g/dl Hct 30.6 L (42.0-52.0) % Plt Count 163 (130-400) K/uL BMP 05/24/23 10:43 Sodium 135 L Potassium 3.8 Chloride 103 Carbon Dioxide 24 BUN 39 H Creatinine 1.22 Glucose 174 H Calcium 9.2 Liver Function 05/24/23 Range/Units 10:43 Total Bilirubin 1.3 H (0.2-1.0) mg/dl Direct Bilirubin 0.4 H (0-0.2) mg/dl AST 23 (13-39) U/L ALT 11 (7-52) U/L Alkaline Phosphatase 52 (34-104) U/L Albumin 3.7 (3.4-5.0) gm/dl Diagnostic Findings Chest X-Ray 05/24/23 09:52 XR chest 1V portable HISTORY: 88 years-old Male Sepsis acute sepsis COMPARISON: Chest radiograph 03/11/2000 and TECHNIQUE: AP view of the chest FINDINGS: Cardiac silhouette is enlarged. Prior median sternotomy with CABG. Left subclavian pacer. No pneumothorax. Trace pleural effusions with mild subsegmental bibasilar atelectasis. Cholelithiasis. Bones appear grossly intact. IMPRESSION: 1. Cardiomegaly without overt pulmonary edema. 2. Trace pleural effusions. 3. Cholelithiasis. ACT 112: Negative or not required by law. The above report was generated using voice recognition software. It may contain grammatical, syntax or spelling errors. Electronically signed by: Bon Alfonso M.D. 05/24/2023 10:[address] 05/24/23 09:53 CT OF THE HEAD WITHOUT CONTRAST CLINICAL HISTORY: Fall. COMPARISON STUDY: Head CT October 05, 2021. CT DOSE: 625.80 mGy.cm TECHNIQUE: Helical axial images of the head were obtained without IV contrast. Automated exposure control was utilized for the study. A dose lowering technique was utilized adhering to the principles of ALARA. FINDINGS: No acute intracranial hemorrhage, midline shift or mass effect is present. Ventricular dilatation is unchanged. The basal cisterns are patent. No extra-axial collections are present. There are no findings to suggest acute dural sinus thrombosis or acute territorial infarct. No significant calvarial abnormalities are present. Visualized portions of the sinuses and mastoid air cells are clear. IMPRESSION: 1. No acute intracranial findings. No change in appearance of the brain. 2. No calvarial fracture. ACT 112: Negative or not required by law. Electronically signed by: Parish Hooks M.D. 05/24/2023 11:59 AM ECG Additional Comments: EKG reviewied: Ventricular-paced rhythm. When compared with ECG of 11-MAR-2023 04:24, No significant change was found Supervising Physician Co-Signing Physician Notes Attending addendum: The patient was seen and examined in emergency room He was admitted with recurrent falls-the patient admits to have recurrent falls and low eyesight but denies any dizziness and no shortness of breath Denies any other significant symptoms in the emergency room On examination Lying in bed without any acute distress Hemodynamically stable with blood pressure on the upper side at 165/51 and is afebrile Chest-clear to auscultate bilaterally [id number] Abdomen-benign Extremities-negative for any edema Examination of the musculoskeletal system-no acute arthritis involving any joint and movement of the right hip and right lower extremity cause some pain around pelvis 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
--- NOTE | 2023-05-24 12:56 | Electrocardiogram Report ---
Test Reason : Blood Pressure : / mmHG Vent. Rate : 061 BPM Atrial Rate : 063 BPM P-R Int : 000 ms QRS Dur : 160 ms QT Int : 518 ms P-R-T Axes : 000 -68 096 degrees QTc Int : 521 ms Ventricular-paced rhythm Abnormal ECG When compared with ECG of 11-MAR-2023 04:24, No significant change was found Confirmed by Abdiel Hagen ([id number]) on 05/24/2023 12:56:01 PM Referred By: REFERRED SELF Confirmed By:Abdiel Hagen
[2023-05-24 13:42] LABS: Appearance Urine Clear (Clear); Bacteria Urine Automated Negative (Negative); Bilirubin Urine Negative (Negative); Blood Urine 1+ (Negative); Color Urine Dark Yellow; Glucose Urine UA Negative (Negative); Ketones Urine Trace (Negative); Leukocyte Esterase Urine Negative (Negative); Nitrite Urine Negative (Negative); Protein Urine 1+ (Negative); Specific Gravity Urine 1.018 (1.000-1.030); Urobilinogen Urine Negative (Negative)
[2023-05-24] MEDS ORDERED: ONDANSETRON INJ 2 MG/ML 2 ML VIAL IV PRN (14:15)
[2023-05-24] MEDS ORDERED: ACETAMINOPHEN 325 MG TAB PO PRN (14:15)
[2023-05-24] MEDS ORDERED: POLYETHYLENE (MIRALAX) 17 GM PACK PO PRN (14:15)
[2023-05-24] MEDS ORDERED: GLUCOSE 40% GEL 15 GM TUBE PO PRN (14:25)
[2023-05-24] MEDS ORDERED: GLUCAGON FOR INJ 1 MG VIAL SQ PRN (14:25)
[2023-05-24] MEDS ORDERED: CARBOHYDRATES FOR HYPOGLYCEMIA PO PRN (14:25)
[2023-05-24] MEDS ORDERED: DEXTROSE 50% 50 ML SYRINGE IV PRN (14:25)
[2023-05-24] MEDS ORDERED: GLUCOSE 10 TAB/TUBE PO PRN (14:25)
[2023-05-24] MEDS ORDERED: LOSARTAN POTASSIUM 25 MG TAB PO SCH (14:30)
[2023-05-24] MEDS ORDERED: LOSARTAN POTASSIUM 50 MG TAB PO SCH (15:00)
[2023-05-24 15:08] LABS: Creatine Kinase 567 U/L (30-223)
[2023-05-24] MEDS: SERTRALINE HCL 50 MG TABLET PO SCH (15:41)
[2023-05-24] MEDS: LOSARTAN POTASSIUM 50 MG TAB PO SCH (15:42)
[2023-05-24] MEDS: FINASTERIDE 5 MG TAB PO SCH (15:42)
[2023-05-24] MEDS: carvediloL 3.125 MG TAB PO SCH ×2 (15:44→20:57)
[2023-05-24] MEDS: INSULIN ASPART PER UNIT CHARGE SC SCH ×3 (18:51→22:39)
[2023-05-24] MEDS: APIXABAN 2.5 MG TAB PO SCH (20:54)
[2023-05-24] MEDS: POTASSIUM CHLORIDE 20MEQ/15ML 473ML PO SCH (20:54)
[2023-05-24] MEDS: BRIMONIDINE TARTRATE 0.2% 5ML OPL SCH (20:55)
[2023-05-24] MEDS: BIMATOPROST 0.01% OP SOLN 2.5 ML BTL OP SCH (20:55)
[2023-05-24] MEDS: FOLIC ACID 1 MG TAB PO SCH (20:55)
[2023-05-24] MEDS ORDERED: POTASSIUM CHLORIDE 10 MEQ TABCR PO SCH (21:00)
[2023-05-25 07:18] LABS: Estimated Average Glucose 137 mg/dl; Hemoglobin A1C 6.4 % (4.5-5.6)
[2023-05-25] MEDS: INSULIN ASPART PER UNIT CHARGE SC SCH ×4 (08:25→22:32)
[2023-05-25] MEDS: CYANOCOBALAMIN (B-12) 500 MCG TABLET PO SCH (08:27)
[2023-05-25] MEDS: FERROUS SULFATE 325 MG TAB PO SCH ×2 (08:27→08:29)
[2023-05-25] MEDS: ATORVASTATIN 40 MG TAB PO SCH (08:27)
[2023-05-25] MEDS: ASPIRIN 81 MG ECTAB PO SCH (08:27)
[2023-05-25] MEDS: ISOSORBIDE MONO EXTENDED REL 30 MG TABCR PO SCH (08:27)
[2023-05-25] MEDS: FUROSEMIDE 40 MG TAB PO SCH (08:27)
[2023-05-25] MEDS: ASCORBIC ACID 500 MG TAB PO SCH (08:27)
[2023-05-25] MEDS: carvediloL 3.125 MG TAB PO SCH ×2 (09:27→22:14)
[2023-05-25] MEDS: FINASTERIDE 5 MG TAB PO SCH (09:27)
[2023-05-25] MEDS: SERTRALINE HCL 50 MG TABLET PO SCH (09:27)
[2023-05-25] MEDS: LOSARTAN POTASSIUM 50 MG TAB PO SCH (09:27)
[2023-05-25] MEDS: BRIMONIDINE TARTRATE 0.2% 5ML OPL SCH ×3 (09:27→22:15)
[2023-05-25] MEDS: APIXABAN 2.5 MG TAB PO SCH ×2 (09:27→22:14)
[2023-05-25 12:26] LABS: Hematocrit (blood only) 27.6 % (42.0-52.0); Hemoglobin 9.2 g/dl (14.0-18.0); Mean Corpuscular Hemoglobin 32.2 pg (25.0-34.0); Mean Corpuscular Hgb Conc 33.3 g/dL (32.0-36.0); Mean Corpuscular Volume 96.5 fL (80.0-100.0); Mean Platelet Volume 10.8 fL (9.4-12.4); Platelet Count 157 K/uL (130-400); RDW Coefficient of Variation 14.6 % (11.5-14.5); RDW Standard Deviation 51.4 fL (36.4-46.3); Red Blood Count 2.86 M/uL (4.70-6.10); White Blood Count 7.75 K/ul (4.8-10.8)
[2023-05-25 12:42] LABS: Calcium 8.3 mg/dl (8.6-10.3); Creatinine Clr Calc Pharmacy 45.2 ml/min; Est GFR (African American) 68.1 ml/min; Est GFR (Non-African American) 58.7 ml/min; Potassium 3.8 mmol/L (3.5-5.1)
[2023-05-25 12:54] LABS: Troponin I High Sensitivity 85.1 pg/ml (0-20)
--- NOTE | 2023-05-25 14:19 | XRay Report ---
XR hip ESPERANZA 2v w pelvis HISTORY: 88 years-old Male hip pain after fall acute bilateral hip pain status post fall COMPARISON: CT 03/11/2023 TECHNIQUE: AP view of the pelvis with 2 views of the bilateral hips FINDINGS: Left hip arthroplasty. Cortical irregularity/step off involving the medial wall of the left acetabulu m is new from prior. Mild associated cortical thickening with periosteal elevation. Demineralized nabil earance of the bones. 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 Satisfactory alignment without acute f racture or dislocation. Arterial calcifications. Moderate rectal fecal retention. IMPRESSION: 1. Left hip arthroplasty with findings suggestive of a subacute left acetabular fracture, new from . 2. Moderate right hip osteoarthritis. ACT 112: Negative or not required by law. The above report was generated using voice recognition software. It may contain grammatical, syntax o r spelling errors. Electronically signed by: Bon Alfonso M.D. 05/25/2023 2:17 PM
--- NOTE | 2023-05-25 16:57 | Hospitalist Progress Note ---
Date of Service May 25, 2023 Assessment & Plan (1) Falls frequently: (2) S/P hip replacement: (3) Persistent atrial fibrillation: (4) CKD (chronic kidney disease), stage III: (5) Chronic anemia: (6) Elevated troponin I level: (7) CHF (congestive heart failure): (8) Dizziness: Plan This is an 88-year-old male with PMH DM II, atrial fibrillation on chronic Eliquis, h/o symptomatic bradycardia s/p pacemaker, CKD III, chronic diastolic CHF (with EF 50% in 02/2021), moderate mitral regurgitation and aortic regurgitation, history of L hip fracture 2/2 fall with surgical repair in Sep 2021 who presents after multiple falls at home. Multiple falls Generalized weakness Acute metabolic encephalopathy Falls 3 days in a row at apartment, found on the ground overnight (currently lives in independent living apartment at [facility]) UA unremarkable, CXR with cardiomegaly without overt pulmonary edema, trace pleural effusions Concern for polypharmacy due to h/o patient incorrectly taking medications May need discussion about benefit vs risk of continuing anticoagulation given frequent falls Troponin with slight elevation. TTE with no wall motion abnormality, EF unchanged from prior PT/OT evaluation once cleared by ortho Recent PPM interrogation, will review outpatient records Left hip pain Left acetabular fracture -Hip and pelvis X ray ordered today and shows left acetabular fracture (site of prior prosthesis) -History of left hip hemiarthroplasty with Dr Davila, will place consult -no weight bearing of left leg/bed rest until evaluated by ortho Elevated troponin EKG with paced rhythm, no significant change from previous Missed medications x 2 days Patient denies chest pain currently or recently Hi sens trop elevated: 65--> 98--> 118--> 85 TTE with no wall motion abnormality CAD (coronary artery disease) S/p CABG. Continue aspirin, atorvastatin, carvedilol, losartan per home regimen CKD (chronic kidney disease), stage III Cr 1.22 (at baseline) Atrial fibrillation Chronic atrial fibrillation on Eliquis. Continue carvedilol per home regimen CHF (congestive heart failure) History chronic systolic, diastolic heart failure. EF 50% in 02/2021 Appeared dehydration initially, received 1 L NSS in ED. Will hold off on additional fluids for now Continue Lasix. Monitor volume status closely DM II A1c 02 January 2023 Hold home agents SSI while in-patient BSG AC HS Mood disorder Continue SSRI DVT Ppx: Continue Eliquis Code status: DNR PCP: Pratima Dispo: Admitted to med/tele Admission and Anticipated Discharge Date Admission Date: May 24, 2023 Subjective complaining of left hip pain Denies chest pain, shortness of breath Has had multiple falls. "I just go down!" Reports his PPM was interrogated 2 weeks ago and it was fine Review of Systems Review of Systems: as above Physical Exam Physical Exam: thin, frail, elderly, appears disheveled Respiratory: breathing comfortably on room air, no wheezing/rhonchi/rales Cardiovascular: regular rate and rhythm, no murmurs/rubs/gallops Gastrointestinal (Abdomen): soft, non tender Musculoskeletal: left hip tender to touch, no lower extremity swelling Neurologic: awake, alert Results & Data Results & Data Vital Signs (Past 12 Hours) Vital Signs Temp Pulse Pulse Resp BP Pulse Ox Pulse Ox 05/25/23 16:02 36.5 C 62 16 105/55 L 97 05/25/23 14:48 60 05/25/23 14:15 96 05/25/23 12:07 36.4 C L 62 16 112/55 L 100 05/25/23 08:30 05/25/23 07:40 63 05/25/23 07:38 36.6 C 60 18 164/64 H 96 O2 Del Method O2 Del Method 05/25/23 16:02 Room Air 05/25/23 14:48 05/25/23 14:15 Room Air 05/25/23 12:07 Room Air 05/25/23 08:30 Room Air 05/25/23 07:40 05/25/23 07:38 Room Air (7) CHF (congestive heart failure) Heart failure type: other Qualified Code(s): I50.9 - Heart failure, unspecified
[2023-05-25] MEDS: SODIUM CHLORIDE 0.9% 1000ML 1,000 ML IV SCH (17:25)
[2023-05-25] MEDS: POTASSIUM CHLORIDE 20MEQ/15ML 473ML PO SCH (22:13)
[2023-05-25] MEDS: FOLIC ACID 1 MG TAB PO SCH (22:14)
[2023-05-25] MEDS: BIMATOPROST 0.01% OP SOLN 2.5 ML BTL OP SCH (22:39)
[2023-05-26] MEDS: SODIUM CHLORIDE 0.9% 1000ML 1,000 ML IV SCH ×2 (03:45→14:36)
[2023-05-26 07:06] LABS: Hematocrit (blood only) 30.3 % (42.0-52.0); Mean Corpuscular Hemoglobin 32.1 pg (25.0-34.0); Mean Corpuscular Volume 97.1 fL (80.0-100.0); Mean Platelet Volume 10.6 fL (9.4-12.4); Platelet Count 166 K/uL (130-400); RDW Coefficient of Variation 14.3 % (11.5-14.5); RDW Standard Deviation 51.5 fL (36.4-46.3); Red Blood Count 3.12 M/uL (4.70-6.10); White Blood Count 6.71 K/ul (4.8-10.8)
[2023-05-26 07:36] LABS: BUN Creatinine Ratio 33.3 (10-20); Calcium 8.3 mg/dl (8.6-10.3); Creatinine Clr Calc Pharmacy 48.2 ml/min; Est GFR (African American) 73.6 ml/min; Est GFR (Non-African American) 63.5 ml/min; Potassium 3.7 mmol/L (3.5-5.1)
[2023-05-26] MEDS: INSULIN ASPART PER UNIT CHARGE SC SCH ×4 (08:28→21:55)
[2023-05-26] MEDS: FERROUS SULFATE 325 MG TAB PO SCH (08:30)
[2023-05-26] MEDS: FUROSEMIDE 40 MG TAB PO SCH (08:30)
[2023-05-26] MEDS: APIXABAN 2.5 MG TAB PO SCH ×2 (08:30→20:41)
[2023-05-26] MEDS: FINASTERIDE 5 MG TAB PO SCH (08:30)
[2023-05-26] MEDS: ATORVASTATIN 40 MG TAB PO SCH (08:30)
[2023-05-26] MEDS: ISOSORBIDE MONO EXTENDED REL 30 MG TABCR PO SCH (08:30)
[2023-05-26] MEDS: BRIMONIDINE TARTRATE 0.2% 5ML OPL SCH ×3 (08:30→20:41)
[2023-05-26] MEDS: ASPIRIN 81 MG ECTAB PO SCH (08:30)
[2023-05-26] MEDS: carvediloL 3.125 MG TAB PO SCH ×2 (08:31→20:40)
[2023-05-26] MEDS: SERTRALINE HCL 50 MG TABLET PO SCH (08:31)
[2023-05-26] MEDS: LOSARTAN POTASSIUM 25 MG TAB PO SCH (08:31)
[2023-05-26] MEDS: CYANOCOBALAMIN (B-12) 500 MCG TABLET PO SCH (08:31)
--- NOTE | 2023-05-26 10:36 | Orthopedic Consultation ---
Patient seen and evaluated. CT scan was reviewed. Shows a minimally displaced left superior and inferior pubic rami fractures as well as a small impacted sacral fracture. There is a slight cortical depression involving the medial wall of the acetabulum. There is no medialization of the hemiarthroplasty and the joint space remains congruent. Given these findings I would recommend c onservative treatment with toe-touch weightbearing on the left lower extremity using the assistance of a walker. Patient is otherwise stable from an orthopedic standpoint we will plan to follow-up as an outpatient in 10 to 14 days. Date of Consultation May 26, 2023 Assessment & Plan (1) Left acetabular fracture: Left medial wall acetabular fracture x-rays have been reviewed by myself and Dr. Cardoza. He has ordered a CT scan of the pelvis at this time for further evaluation. Dr. Cardoza to review once this is done. No surgical intervention needed at this time and awaiting further review of CT scan. Plans will be to start the patient on toe-touch weightbearing of the left lower extremity with walker with his physical therapy. Pain control as needed. Acetaminophen ordered currently and consider use of tramadol short term. History of Present Illness Reason for Consultation: Left medial Acetabular fracture Attending Physician: Leo Rosenthal MD History of Present Illness Patient is a 88-year-old male with PMH DM II, atrial fibrillation on chronic Eliquis, h/o symptomatic bradycardia s/p pacemaker, CKD III, chronic diastolic CHF, EF 50% in 02/2021, moderate mitral regurgitation and aortic regurgitation, history of left hip fracture in Sep 2021 with surgical repair with a cemented bipolar hemiarthroplasty. Patient resides at [facility]. Patient has had multiple falls over a period of time. He has been helped by his family as well as by the staff of [facility] in these times however he had a recent fall and was having increased pain with ambulation. He was brought to [facility] to be seen. He was seen by the emergency room staff and x-rays were taken. It was found that he had a medial wall acetabular fracture and he was admitted for further care. We have been asked to see him for his fracture. Allergies Allergy/AdvReac Type Severity Reaction Status Date / Time No Known Allergies Allergy Verified 05/24/23 13:12 Home Medications Medication Instructions Recorded Confirmed Type aspirin 81 mg tablet,delayed 81 mg PO QAM 12/31/19 05/24/23 History release bimatoprost 0.01 % eye drops 1 drp OPB HS 12/31/19 05/24/23 History (Rosibel) brimonidine 0.2 % eye drops 1 drp OPL TID 12/31/19 05/24/23 History carvedilol 3.125 mg tablet 3.125 mg PO BID 02/04/21 05/24/23 History cyanocobalamin (vitamin B-12) 1,000 mcg PO QAM 02/04/21 05/24/23 History 1,000 mcg tablet isosorbide mononitrate 30 mg 30 mg PO QAM #30 tabs 03/11/21 05/24/23 Rx tablet,extended release 24 hr apixaban 2.5 mg tablet (Eliquis) 2.5 mg PO BID 05/23/21 05/24/23 History folic acid 1 mg tablet 1 mg PO HS 05/23/21 05/24/23 History furosemide 40 mg tablet 40 mg PO QAM 05/23/21 05/24/23 History iron,carbonyl 65 mg-vitamin C 125 1 tab PO 3XWK 05/23/21 05/24/23 History mg tablet,delayed release (Vitron-C) atorvastatin 40 mg tablet 40 mg PO QAM 07/14/21 05/24/23 History nitroglycerin 0.4 mg sublingual 0.4 mg sublingual UD PRN Angina 07/14/21 05/24/23 History tablet potassium chloride 10 mEq 5 meq PO HS 07/14/21 05/24/23 History tablet,extended release (Klor-Con) ferrous sulfate 325 mg (65 mg 65 mg PO QAM 05/24/23 05/24/23 History iron) tablet finasteride 5 mg tablet 5 mg PO QAM 05/24/23 05/24/23 History losartan 25 mg tablet 12.5 mg PO QAM 05/24/23 05/24/23 History metformin 500 mg tablet,extended 500 mg PO QAM 05/24/23 05/24/23 History release 24 hr sertraline 25 mg tablet 25 mg PO QAM 05/24/23 05/24/23 History Patient History Medical History Anemia Aortic stenosis Atrial fibrillation on eliquis bid--follows with Dr. Layla Carmichael CAD (coronary artery disease) CHF (congestive heart failure) CKD (chronic kidney disease), stage III Glaucoma HLD (hyperlipidemia) HTN (hypertension) Mitral regurgitation Neuropathy On anticoagulant therapy eliquis bid Walker as ambulation aid Surgical History History of bilateral cataract extraction History of colonoscopy History of coronary artery bypass graft 2007 in the [facility] History of open reduction and internal fixation (ORIF) procedure left ankle--hardware in place S/P cardiac pacemaker procedure 2016--[facility] Family History Mother Heart disease Father Prostate cancer Other No family history of adverse response to anesthesia Social History Smoking Status: Former smoker Tobacco Type: Pipe Second Hand Exposure: Yes; Do You Dip or Chew Tobacco: No; Tobacco Cessation Education Requested by Patient: No Hx Alcohol Use: Yes Alcohol type: wine Alcohol Intake Frequency: Monthly or Less Hx Substance Use: No Preferred Language: Ukrainian Communication Ability: Effective Communication Ability Comment: pt does sign own consents Skid Adzer Required: No Beliefs That Will Affect Care: None marital status: Single Current Living Situation: Alone and Personal Care Facility Current Living Situation Comment: [facility] Independent living How many Children do You have: 0 Other Information That Helps Us Care for You: No Feels Safe at Home: No Is there a partner from a previous relationship who is making you feel unsafe now?: No Any Concerns about Your Family Situation: No Would You Like to Speak to Someone About Your Situation: Yes (Worried about the increase in falls) Safety Concerns: Afraid for Self Assistive Devices: Walker Physical Exam Physical Exam: Patient is an 88-year-old white male who appears his stated age. He is pleasant and cooperative. No acute distress. He is oriented to person and place. On examination of his left lower extremity, leg lengths appear equal. There is no overt bruising noted over the lateral hip but he does have tenderness on palpation in and around the area of his well-healed incision from his previous bipolar hemiarthroplasty. Patient does have increased pain with internal and external rotation, abduction and adduction. He does not have much in the way of pain with flexion and/or extension of the hip at this time. He denies pain on palpation of his left knee and has good range of motion of his left knee without discomfort. Calves are soft and nontender. He has good range of motion of his left ankle and toes. He denies discomfort with range of motion of the right lower extremity at the hip, knee, and ankle. He has no pain on palpation of his shoulders, elbows, and wrists. There is no gross motor or sensory loss seen at this time. Results & Data Vital Signs (Past 12 Hours) Vital Signs Temp Pulse Pulse Resp BP Pulse Ox Pulse Ox 05/26/23 08:00 05/26/23 09:00 92 05/26/23 07:30 36.5 C 60 16 156/70 H 92 05/26/23 07:19 60 05/26/23 01:00 60 O2 Del Method O2 Del Method 05/26/23 08:00 Room Air 05/26/23 09:00 Room Air 05/26/23 07:30 Room Air 05/26/23 07:19 05/26/23 01:00 Laboratory Results Laboratory Results WBC 6.71 K/ul (4.8-10.8) 05/26/23 06:22 RBC 3.12 M/uL (4.70-6.10) L 05/26/23 06:22 Hgb 10.0 g/dl (14.0-18.0) L 05/26/23 06:22 Hct 30.3 % (42.0-52.0) L 05/26/23 06:22 MCV 97.1 fL (80.0-100.0) 05/26/23 06:22 MCH 32.1 pg (25.0-34.0) 05/26/23 06:22 MCHC 33.0 g/dL (32.0-36.0) 05/26/23 06:22 RDW Std Deviation 51.5 fL (36.4-46.3) H 05/26/23 06:22 RDW Coeff of Libia 14.3 % (11.5-14.5) 05/26/23 06:22 Plt Count 166 K/uL (130-400) 05/26/23 06:22 MPV 10.6 fL (9.4-12.4) 05/26/23 06:22 Immature Gran % (Auto) 0.5 % 05/24/23 10:43 Neut % (Auto) 84.4 % 05/24/23 10:43 Lymph % (Auto) 6.8 % 05/24/23 10:43 [place] % (Auto) 6.0 % 05/24/23 10:43 Eos % (Auto) 2.0 % 05/24/23 10:43 Baso % (Auto) 0.3 % 05/24/23 10:43 Neut # (Auto) 7.34 K/uL (1.40-6.50) H 05/24/23 10:43 Lymph # (Auto) 0.59 K/uL (1.2-3.4) L 05/24/23 10:43 [place] # (Auto) 0.52 K/uL (0.11-0.59) 05/24/23 10:43 Eos # (Auto) 0.17 K/uL (0-0.50) 05/24/23 10:43 Baso # (Auto) 0.03 K/uL (0-0.2) 05/24/23 10:43 Immature Gran # (Auto) 0.04 K/uL (0.01-0.20) 05/24/23 10:43 Sodium 139 mmol/L (136-145) 05/26/23 06:22 Potassium 3.7 mmol/L (3.5-5.1) 05/26/23 06:22 Chloride 107 mmol/L (98-107) 05/26/23 06:22 Carbon Dioxide 24 mmol/L (21-32) 05/26/23 06:22 Anion Gap 8 (3-11) 05/26/23 06:22 BUN 35 mg/dl (6-23) H 05/26/23 06:22 Creatinine 1.05 mg/dl (0.6-1.4) 05/26/23 06:22 Est Cr Clr Drug Dosing 48.2 ml/min 05/26/23 06:22 Est GFR ( Amer) 73.6 ml/min 05/26/23 06:22 Est GFR (Non-Af Amer) 63.5 ml/min 05/26/23 06:22 BUN/Creatinine Ratio 33.3 (10-20) H 05/26/23 06:22 Glucose 93 mg/dl (70-99(Fasting)) 05/26/23 06:22 POC Glucose 151 mg/dl (70-99) H 05/26/23 11:18 Estimat Average Glucose 137 mg/dl 05/24/23 04:44 Hemoglobin A1c 6.4 % (4.5-5.6) H 05/24/23 04:44 Lactate 1.4 mmol/L (0.4-2.0) 05/24/23 10:43 Calcium 8.3 mg/dl (8.6-10.3) L 05/26/23 06:22 Magnesium 2.0 mg/dl (1.7-2.4) 05/26/23 06:22 Total Bilirubin 1.3 mg/dl (0.2-1.0) H 05/24/23 10:43 Direct Bilirubin 0.4 mg/dl (0-0.2) H 05/24/23 10:43 AST 23 U/L (13-39) 05/24/23 10:43 ALT 11 U/L (7-52) 05/24/23 10:43 Alkaline Phosphatase 52 U/L (34-104) 05/24/23 10:43 Total Creatine Kinase 394 U/L (30-223) H 05/25/23 11:54 Troponin I High Sens 85.1 pg/ml (0-20) H* D 05/25/23 11:54 Total Protein 6.6 gm/dl (6.0-8.3) 05/24/23 10:43 Albumin 3.7 gm/dl (3.4-5.0) 05/24/23 10:43 Procalcitonin 0.09 ng/ml (0-0.5) 05/24/23 10:43 Urine Color Dark Yellow 05/24/23 10:54 Urine Appearance Clear (Clear) 05/24/23 10:54 Urine pH 5.0 (4.5-7.5) 05/24/23 10:54 Ur Specific Moseley 1.018 (1.000-1.030) 05/24/23 10:54 Urine Protein 1+ (Negative) H 05/24/23 10:54 Urine Glucose (UA) Negative (Negative) 05/24/23 10:54 Urine Ketones Trace (Negative) H 05/24/23 10:54 Urine Blood 1+ (Negative) H 05/24/23 10:54 Urine Nitrite Negative (Negative) 05/24/23 10:54 Urine Bilirubin Negative (Negative) 05/24/23 10:54 Urine Urobilinogen Negative (Negative) 05/24/23 10:54 Ur Leukocyte Esterase Negative (Negative) 05/24/23 10:54 Urine WBC (Auto) 1-5 /hpf (0-5) 05/24/23 10:54 Urine RBC (Auto) 10-30 /hpf (0-4) H 05/24/23 10:54 U Hyaline Cast (Auto) 1-5 /lpf (0-5) 05/24/23 10:54 U Epithel Cells (Auto) 10-20 /lpf (0-5) H 05/24/23 10:54 Urine Bacteria (Auto) Negative (Negative) 05/24/23 10:54 Impressions Chest X-Ray 05/24/23 09:52 XR chest 1V portable HISTORY: 88 years-old Male Sepsis acute sepsis COMPARISON: Chest radiograph 03/11/2000 and TECHNIQUE: AP view of the chest FINDINGS: Cardiac silhouette is enlarged. Prior median sternotomy with CABG. Left subclavian pacer. No pneumothorax. Trace pleural effusions with mild subsegmental bibasilar atelectasis. Cholelithiasis. Bones appear grossly intact. IMPRESSION: 1. Cardiomegaly without overt pulmonary edema. 2. Trace pleural effusions. 3. Cholelithiasis. ACT 112: Negative or not required by law. The above report was generated using voice recognition software. It may contain grammatical, syntax or spelling errors. Electronically signed by: Bon Alfonso M.D. 05/24/2023 10:[address] 05/24/23 09:53 CT OF THE HEAD WITHOUT CONTRAST CLINICAL HISTORY: Fall. COMPARISON STUDY: Head CT October 05, 2021. CT DOSE: 625.80 mGy.cm TECHNIQUE: Helical axial images of the head were obtained without IV contrast. Automated exposure control was utilized for the study. A dose lowering technique was utilized adhering to the principles of ALARA. FINDINGS: No acute intracranial hemorrhage, midline shift or mass effect is present. Ventricular dilatation is unchanged. The basal cisterns are patent. No extra-axial collections are present. There are no findings to suggest acute dural sinus thrombosis or acute territorial infarct. No significant calvarial abnormalities are present. Visualized portions of the sinuses and mastoid air cells are clear. IMPRESSION: 1. No acute intracranial findings. No change in appearance of the brain. 2. No calvarial fracture. ACT 112: Negative or not required by law. Electronically signed by: Parish Hooks M.D. 05/24/2023 11:59 AM Hip/Pelvis X-Ray 05/25/23 13:47 XR hip ESPERANZA 2v w pelvis HISTORY: 88 years-old Male hip pain after fall acute bilateral hip pain status post fall COMPARISON: CT 03/11/2023 TECHNIQUE: AP view of the pelvis with 2 views of the bilateral hips FINDINGS: Left hip arthroplasty. Cortical irregularity/step off involving the medial wall of the left acetabulum is new from prior. Mild associated cortical thickening with periosteal elevation. Demineralized appearance of the bones. 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 Satisfactory alignment without acute fracture or dislocation. Arterial calcifications. Moderate rectal fecal retention. IMPRESSION: 1. Left hip arthroplasty with findings suggestive of a subacute left acetabular fracture, new from 03/11/2023. 2. Moderate right hip osteoarthritis. ACT 112: Negative or not required by law. The above report was generated using voice recognition software. It may contain grammatical, syntax or spelling errors. Electronically signed by: Bon Alfonso M.D. 05/25/2023 2:17 PM
--- NOTE | 2023-05-26 13:36 | CT Scan Report ---
CT SCAN OF THE PELVIS WITHOUT IV CONTRAST CLINICAL HISTORY: Fall. Left acetabular fracture. COMPARISON STUDY: Pelvic CT dated 03/11/2023. Radiographs of the hips and pelvis dated 05/25/2023. TECHNIQUE: CT scan of the pelvis is performed from the pelvic inlet to the proximal femora. Images ar e reviewed in the axial, sagittal, and coronal planes. IV contrast was not administered for this exam ination. A dose lowering technique was utilized adhering to the principles of ALARA. The examination is degraded by streak artifact from a left hip arthroplasty. CT DOSE: 619.55 mGy.cm FINDINGS: The skeletal structures are osteopenic. There is an acute nondisplaced fracture of the infe rior left pubic ring. There is a nondisplaced fracture of the posterior left superior pubic ring whic h extends through the anterior and medial lamar of the left acetabulum. This is best seen on coronal reformatted image #41. There is also a nondisplaced horizontal fracture through the sacrum at the S3- S4 levels. This is best seen on axial image #346 and sagittal reformatted image #38. No additional ac [place] fracture is seen involving the bony pelvis. A left hip arthroplasty is in place. The proximal fem ora appear intact. Moderate arthritic change is noted in the right hip. A benign-appearing lucency in the right posterior acetabulum/ischium is unchanged. No lytic or blastic bony lesion is seen. Trace hemorrhage surrounds the fracture sites. No large hematoma is seen. There is generalized atrophy of t he regional musculature. There is a large left inguinal hernia which contains a nonobstructed bowel l oop. A smaller fat-containing inguinal hernia is seen on the right. The prostate gland is diminutive and heterogeneous. The bladder is distended, the wall is thickened/trabeculated indicating chronic ou tlet obstruction. Numerous bladder diverticula measure up to 2.4 cm. There is advanced atheroscleroti c calcification of the iliac arteries. No pelvic sidewall or inguinal lymphadenopathy is seen. There is rectosigmoid fecal retention. Imaged bowel loops show no evidence of obstruction. A left lower rei e renal cyst is partially visualized. This was better assessed on a 03/11/[address] There is no free fluid identified in the pelvis. IMPRESSION: 1. Left inferior pubic ring fracture. 2. Fracture of the posterior left superior pubic ring which extends to the acetabulum as above. 3. Sacral fracture as above. 4. There is trace hemorrhage around the fracture site with no large hematoma seen. 5. Left larger than right inguinal hernias. The left inguinal hernia contains a nonobstructed loop of bowel. 6. The appearance of the bladder indicates chronic outlet obstruction. 7. Additional findings as above. ACT 112: Negative or not required by law. Dictated: 05/26/2023 11:23 AM Transcribed: 05/26/2023 12:13 PM Zachary [id number] Electronically signed by: Eros العلي M.D. 05/26/2023 1:34 PM
[2023-05-26] MEDS ORDERED: traMADol HCL 50 MG TABLET PO PRN (15:55)
--- NOTE | 2023-05-26 16:47 | Hospitalist Progress Note ---
Date of Service May 26, 2023 Assessment & Plan (1) Falls frequently: (2) S/P hip replacement: (3) Persistent atrial fibrillation: (4) CKD (chronic kidney disease), stage III: (5) Chronic anemia: (6) Elevated troponin I level: (7) CHF (congestive heart failure): (8) Dizziness: Plan This is an 88-year-old male with PMH DM II, atrial fibrillation on chronic Eliquis, h/o symptomatic bradycardia s/p pacemaker, CKD III, chronic diastolic CHF (with EF 50% in 02/2021), moderate mitral regurgitation and aortic regurgitation, history of L hip fracture 2/2 fall with surgical repair in Sep 2021 who presents after multiple falls at home. Multiple falls Generalized weakness Acute metabolic encephalopathy Falls 3 days in a row at apartment, found on the ground overnight (currently lives in independent living apartment at [facility]) UA unremarkable, CXR with cardiomegaly without overt pulmonary edema, trace pleural effusions Concern for polypharmacy due to h/o patient incorrectly taking medications May need discussion about benefit vs risk of continuing anticoagulation given frequent falls Troponin with slight elevation. TTE with no wall motion abnormality, EF unchanged from prior PPM interrogated 02/2023. Will repeat here. PT/OT eval placed Left hip pain Left acetabular fracture Sacral fracture -Hip and pelvis X ray shows left acetabular fracture (site of prior prosthesis) -Evaluated by ortho today and cleared for left toe touch Elevated troponin EKG with paced rhythm, no significant change from previous Missed medications x 2 days Patient denies chest pain currently or recently Hi sens trop elevated: 65--> 98--> 118--> 85 TTE with no wall motion abnormality CAD (coronary artery disease) S/p CABG. Continue aspirin, atorvastatin, carvedilol, losartan per home regimen CKD (chronic kidney disease), stage III Cr 1.22 (at baseline) Atrial fibrillation Chronic atrial fibrillation on Eliquis. Continue carvedilol per home regimen CHF (congestive heart failure) History chronic systolic, diastolic heart failure. EF 50% in 02/2021 Appeared dehydration initially, received 1 L NSS in ED. Will hold off on additional fluids for now Continue Lasix. Monitor volume status closely DM II A1c 02 January 2023 Hold home agents SSI while in-patient BSG AC HS Mood disorder Continue SSRI DVT Ppx: Continue Eliquis Code status: DNR PCP: Pratima Dispo: From Independent living. Pending PT/OT eval Admission and Anticipated Discharge Date Admission Date: May 24, 2023 Subjective Reports ongoing left hip pain No chest pain, nausea or vomiting Review of Systems Review of Systems: as above Physical Exam Physical Exam: Appears stated age, no acute distress ENMT: strabismus Respiratory: breathing comfortably on room air, no wheezing/rhonchi Cardiovascular: regular rate and rhythm, no murmurs/rubs Gastrointestinal (Abdomen): soft, non tender Musculoskeletal: no edema Neurologic: awake, alert, spontaneously moving extremities Results & Data Results & Data Vital Signs (Past 12 Hours) Vital Signs Temp Pulse Pulse Resp BP Pulse Ox Pulse Ox 05/26/23 15:50 72 05/26/23 15:10 36.5 C 61 16 105/51 L 93 05/26/23 11:15 36.5 C 66 16 155/67 H 97 05/26/23 08:00 05/26/23 09:00 92 05/26/23 07:30 36.5 C 60 16 156/70 H 92 05/26/23 07:19 60 O2 Del Method O2 Del Method 05/26/23 15:50 05/26/23 15:10 Room Air 05/26/23 11:15 Room Air 05/26/23 08:00 Room Air 05/26/23 09:00 Room Air 05/26/23 07:30 Room Air 05/26/23 07:19 (7) CHF (congestive heart failure) Heart failure type: other Qualified Code(s): I50.9 - Heart failure, unspecified
[2023-05-26] MEDS: ACETAMINOPHEN 500 MG TAB PO SCH (20:39)
[2023-05-26] MEDS: BIMATOPROST 0.01% OP SOLN 2.5 ML BTL OP SCH (20:41)
[2023-05-26] MEDS: POTASSIUM CHLORIDE 20MEQ/15ML 473ML PO SCH (20:42)
[2023-05-26] MEDS: FOLIC ACID 1 MG TAB PO SCH (20:42)
[2023-05-27] MEDS: SODIUM CHLORIDE 0.9% 1000ML 1,000 ML IV SCH ×2 (01:01→11:54)
[2023-05-27 07:54] LABS: Hematocrit (blood only) 29.7 % (42.0-52.0); Mean Corpuscular Hemoglobin 32.4 pg (25.0-34.0); Mean Corpuscular Hgb Conc 33.7 g/dL (32.0-36.0); Mean Corpuscular Volume 96.1 fL (80.0-100.0); Mean Platelet Volume 10.4 fL (9.4-12.4); Platelet Count 174 K/uL (130-400); RDW Coefficient of Variation 14.1 % (11.5-14.5); RDW Standard Deviation 49.4 fL (36.4-46.3); Red Blood Count 3.09 M/uL (4.70-6.10); White Blood Count 6.61 K/ul (4.8-10.8)
[2023-05-27 08:09] LABS: Calcium 8.1 mg/dl (8.6-10.3); Potassium 3.8 mmol/L (3.5-5.1)
[2023-05-27 08:14] LABS: BUN Creatinine Ratio 34.5 (10-20); Est GFR (African American) 91.2 ml/min; Est GFR (Non-African American) 78.7 ml/min
[2023-05-27] MEDS: INSULIN ASPART PER UNIT CHARGE SC SCH ×4 (08:41→21:35)
[2023-05-27] MEDS: ATORVASTATIN 40 MG TAB PO SCH (08:42)
[2023-05-27] MEDS: FUROSEMIDE 40 MG TAB PO SCH (08:42)
[2023-05-27] MEDS: LOSARTAN POTASSIUM 25 MG TAB PO SCH (08:42)
[2023-05-27] MEDS: FINASTERIDE 5 MG TAB PO SCH (08:42)
[2023-05-27] MEDS: ISOSORBIDE MONO EXTENDED REL 30 MG TABCR PO SCH (08:42)
[2023-05-27] MEDS: CYANOCOBALAMIN (B-12) 500 MCG TABLET PO SCH (08:42)
[2023-05-27] MEDS: APIXABAN 2.5 MG TAB PO SCH ×2 (08:43→21:35)
[2023-05-27] MEDS: carvediloL 3.125 MG TAB PO SCH ×2 (08:43→21:34)
[2023-05-27] MEDS: ACETAMINOPHEN 500 MG TAB PO SCH ×3 (08:43→21:33)
[2023-05-27] MEDS: ASPIRIN 81 MG ECTAB PO SCH (08:43)
[2023-05-27] MEDS: FERROUS SULFATE 325 MG TAB PO SCH (08:43)
[2023-05-27] MEDS: DOCUSATE SODIUM/SENNA 50/8.6MG TAB PO SCH (08:43)
[2023-05-27] MEDS: BRIMONIDINE TARTRATE 0.2% 5ML OPL SCH ×3 (08:43→21:33)
[2023-05-27] MEDS: SERTRALINE HCL 50 MG TABLET PO SCH (08:43)
--- NOTE | 2023-05-27 13:38 | Hospitalist Progress Note ---
Date of Service May 27, 2023 Assessment & Plan (1) Falls frequently: (2) S/P hip replacement: (3) Persistent atrial fibrillation: (4) CKD (chronic kidney disease), stage III: (5) Chronic anemia: (6) Elevated troponin I level: (7) CHF (congestive heart failure): (8) Dizziness: Plan This is an 88-year-old male with PMH DM II, atrial fibrillation on chronic Eliquis, h/o symptomatic bradycardia s/p pacemaker, CKD III, chronic diastolic CHF (with EF 50% in 02/2021), moderate mitral regurgitation and aortic regurgitation, history of L hip fracture 2/2 fall with surgical repair in Sep 2021 who presents after multiple falls at home. Multiple falls Generalized weakness Acute metabolic encephalopathy Falls 3 days in a row at apartment, found on the ground overnight (currently lives in independent living apartment at [facility]) UA unremarkable, CXR with cardiomegaly without overt pulmonary edema, trace pleural effusions Concern for polypharmacy due to h/o patient incorrectly taking medications May need discussion about benefit vs risk of continuing anticoagulation given frequent falls Troponin with slight elevation. TTE with no wall motion abnormality, EF unchanged from prior PPM interrogated 02/2023. Repeat here with no events noted, he is 99% [employer] Awaiting PT/OT evaluation for discharg planning Left hip pain Left acetabular fracture Sacral fracture -Hip and pelvis X ray shows left acetabular fracture (site of prior prosthesis) -Evaluated by ortho05/26 and cleared for left toe touch Elevated troponin EKG with paced rhythm, no significant change from previous Missed medications x 2 days Patient denies chest pain currently or recently Hi sens trop elevated: 65--> 98--> 118--> 85 TTE with no wall motion abnormality Mild Rhabdomyolysis Appeared dehydration initially, received 1 L NSS in ED then IVF for 1 day here. Discontinue further IV fluids CK improved CAD (coronary artery disease) S/p CABG. Continue aspirin, atorvastatin, carvedilol, losartan per home regimen CKD (chronic kidney disease), stage III Cr 1.22 (at baseline) Atrial fibrillation Chronic atrial fibrillation on Eliquis. Continue carvedilol per home regimen CHF (congestive heart failure) History chronic systolic, diastolic heart failure. EF 50% in 02/2021 Continue Lasix. Monitor volume status closely DM II A1c 02 January 2023 Hold home agents SSI while in-patient BSG AC HS Mood disorder Continue SSRI DVT Ppx: Continue Eliquis Code status: DNR PCP: Pratima Dispo: From Independent living. Pending PT/OT eval Admission and Anticipated Discharge Date Admission Date: May 24, 2023 Subjective Feels better. Still with left hip pain but he hasn't been asking for Tramadol--he was reminded that Tramadol is available when he needs. Pacemaker interrogated yesterday Appetite improved Review of Systems Review of Systems: as above Physical Exam Physical Exam: Appears stated age, no acute distress, non toxic Respiratory: breathing comfortably on room air, no wheezing/rhonchi/rales Cardiovascular: regular rate and rhythm, no murmurs/rubs Gastrointestinal (Abdomen): soft, non tender Musculoskeletal: no edema Skin: left hip with healed scar from prior surgery, no significant swelling or bruising noted on exposed skin Neurologic: awake, alert, answers simple questions appropriately Results & Data Results & Data Vital Signs (Past 12 Hours) Vital Signs Temp Pulse Pulse Resp BP Pulse Ox O2 Del Method 05/27/23 10:53 36.5 C 60 16 124/62 97 Room Air 05/27/23 08:30 Room Air 05/27/23 07:21 36.8 C 60 16 191/61 H 95 Room Air 05/27/23 07:18 60 05/27/23 04:20 36.5 C 60 18 159/66 H 95 Room Air (7) CHF (congestive heart failure) Heart failure type: other Qualified Code(s): I50.9 - Heart failure, unspecified
[2023-05-27] MEDS: FOLIC ACID 1 MG TAB PO SCH (21:33)
[2023-05-27] MEDS: BIMATOPROST 0.01% OP SOLN 2.5 ML BTL OP SCH (21:33)
[2023-05-27] MEDS: POTASSIUM CHLORIDE 20MEQ/15ML 473ML PO SCH (21:34)
[2023-05-28 08:46] LABS: Hematocrit (blood only) 32.1 % (42.0-52.0); Hemoglobin 10.7 g/dl (14.0-18.0); Mean Corpuscular Hgb Conc 33.3 g/dL (32.0-36.0); Mean Corpuscular Volume 96.1 fL (80.0-100.0); Mean Platelet Volume 10.5 fL (9.4-12.4); Platelet Count 183 K/uL (130-400); RDW Coefficient of Variation 14.3 % (11.5-14.5); RDW Standard Deviation 50.3 fL (36.4-46.3); Red Blood Count 3.34 M/uL (4.70-6.10); White Blood Count 6.66 K/ul (4.8-10.8)
[2023-05-28] MEDS: INSULIN ASPART PER UNIT CHARGE SC SCH ×2 (08:52→12:22)
[2023-05-28] MEDS: ACETAMINOPHEN 500 MG TAB PO SCH ×2 (08:54→13:37)
[2023-05-28] MEDS: BRIMONIDINE TARTRATE 0.2% 5ML OPL SCH ×2 (08:54→13:37)
[2023-05-28] MEDS: carvediloL 3.125 MG TAB PO SCH (08:57)
[2023-05-28] MEDS: CYANOCOBALAMIN (B-12) 500 MCG TABLET PO SCH (08:57)
[2023-05-28] MEDS: APIXABAN 2.5 MG TAB PO SCH (08:57)
[2023-05-28 08:59] LABS: BUN Creatinine Ratio 29.9 (10-20); Calcium 8.5 mg/dl (8.6-10.3); Creatinine Clr Calc Pharmacy 60.1 ml/min; Est GFR (African American) 89.9 ml/min; Est GFR (Non-African American) 77.6 ml/min; Potassium 3.7 mmol/L (3.5-5.1)
[2023-05-28] MEDS: ISOSORBIDE MONO EXTENDED REL 30 MG TABCR PO SCH (08:59)
[2023-05-28] MEDS: ASCORBIC ACID 500 MG TAB PO SCH (08:59)
[2023-05-28] MEDS: LOSARTAN POTASSIUM 25 MG TAB PO SCH (08:59)
[2023-05-28] MEDS: FERROUS SULFATE 325 MG TAB PO SCH ×2 (08:59)
[2023-05-28] MEDS: DOCUSATE SODIUM/SENNA 50/8.6MG TAB PO SCH (08:59)
[2023-05-28] MEDS: SERTRALINE HCL 50 MG TABLET PO SCH (08:59)
[2023-05-28] MEDS: ATORVASTATIN 40 MG TAB PO SCH (09:00)
[2023-05-28] MEDS: ASPIRIN 81 MG ECTAB PO SCH (09:00)
[2023-05-28] MEDS: FINASTERIDE 5 MG TAB PO SCH (09:00)
[2023-05-28] MEDS: FUROSEMIDE 40 MG TAB PO SCH (09:00)
--- NOTE | 2023-05-28 09:48 | Hospitalist Progress Note ---
Date of Service May 28, 2023 Assessment & Plan (1) Falls frequently: (2) S/P hip replacement: (3) Persistent atrial fibrillation: (4) CKD (chronic kidney disease), stage III: (5) Chronic anemia: (6) Elevated troponin I level: (7) CHF (congestive heart failure): (8) Dizziness: Plan This is an 88-year-old male with PMH DM II, atrial fibrillation on chronic Eliquis, h/o symptomatic bradycardia s/p pacemaker, CKD III, chronic diastolic CHF (with EF 50% in 02/2021), moderate mitral regurgitation and aortic regurgitation, history of L hip fracture 2/2 fall with surgical repair in Sep 2021 who presents after multiple falls at home. Multiple falls Generalized weakness Acute metabolic encephalopathy Falls 3 days in a row at apartment, found on the ground overnight (currently lives in independent living apartment at [facility]) UA unremarkable, CXR with cardiomegaly without overt pulmonary edema, trace pleural effusions Concern for polypharmacy due to h/o patient incorrectly taking medications May need discussion about benefit vs risk of continuing anticoagulation given frequent falls Troponin with slight elevation. TTE with no wall motion abnormality, EF unchanged from prior PPM interrogated 02/2023. 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 Will need premedication with Tramadol Left hip pain Left acetabular fracture Sacral fracture -Hip and pelvis X ray shows left acetabular fracture (site of prior prosthesis) -Evaluated by ortho05/26 and cleared for left toe touch Elevated troponin EKG with paced rhythm, no significant change from previous Missed medications x 2 days Patient denies chest pain currently or recently Hi sens trop elevated: 65--> 98--> 118--> 85 TTE with no wall motion abnormality Mild Rhabdomyolysis Appeared dehydration initially, received 1 L NSS in ED then IVF for 1 day here. Discontinue further IV fluids CK improved CAD (coronary artery disease) S/p CABG. Continue aspirin, atorvastatin, carvedilol, losartan per home regimen CKD (chronic kidney disease), stage III Cr 1.22 (at baseline) Atrial fibrillation Chronic atrial fibrillation on Eliquis. Continue carvedilol per home regimen CHF (congestive heart failure) History chronic systolic, diastolic heart failure. EF 50% in 02/2021 Continue Lasix. Monitor volume status closely DM II A1c 02 January 2023 Hold home agents SSI while in-patient BSG AC HS Mood disorder Continue SSRI DVT Ppx: Continue Eliquis Code status: DNR PCP: Pratima Dispo: From Independent living. Pending PT/OT eval for discharge planning Admission and Anticipated Discharge Date Admission Date: May 24, 2023 Subjective Having intermittent left hip pain, does not remember to ask for Tramadol, he was reminded again Ate breakfast No nausea/vomiting Review of Systems Review of Systems: as above Physical Exam Physical Exam: Appears stated age, somewhat disheveled appearing, no acute distress Respiratory: Breathing comfortably on room air, no wheezing/rhonchi/rales Cardiovascular: regular rate and rhythm, no murmurs/rubs Gastrointestinal (Abdomen): soft, non tender, non distended Musculoskeletal: no edema Neurologic: awake, alert, forgetful, able to answer simple questions but appears to have memory impairment Results & Data Results & Data Vital Signs (Past 12 Hours) Vital Signs Temp Pulse Pulse Pulse Resp BP Pulse Ox 05/28/23 07:49 36.4 C L 64 18 156/64 H 95 05/28/23 05:56 60 05/28/23 04:25 60 05/28/23 03:03 36.3 C L 60 18 162/69 H 94 05/28/23 02:23 05/27/23 23:47 36.6 C 63 16 165/66 H 95 O2 Del Method 05/28/23 07:49 Room Air 05/28/23 05:56 05/28/23 04:25 05/28/23 03:03 Room Air 05/28/23 02:23 Room Air 05/27/23 23:47 Room Air (7) CHF (congestive heart failure) Heart failure type: other Qualified Code(s): I50.9 - Heart failure, u nspecified
--- NOTE | 2023-05-28 12:20 | Discharge Summary ---
Date of Service May 28, 2023 Admission HPI Per Admitting Provider This is a 88-year-old male with PMH DM II, atrial fibrillation on chronic Eliquis, h/o symptomatic bradycardia s/p pacemaker, CKD III, chronic diastolic CHF, EF 50% in 02/2021, moderate mitral regurgitation and aortic regurgitation, history of left hip fracture in Sep 2021 with surgical repair who presents from independent living at [facility] with multiple falls in the past few days. History fully obtained from phone call with [id number], Ian, who helps organize patient's medications. Fell on Sunday and crawled to phone and called Ian, who helped get him up. 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 Fell again last evening and was found on the floor by neighbor and brought to [facility] for further evaluation. Is on Eliquis for history of persistent atrial fibrillation. Ian feels patient has been notably confused for the past week and did not take his medications yesterday or today as they were found in pillbox. There has been some issue with medication compliance previously as patient has poor vision and cannot see small pills to take or sometimes is forgetful and takes multiple doses at once. Also has not been writing down vitals and weight each day as he has previously done. Ian has been discussing with family today the need for patient to have higher level of care Per discussion with patient, he knows who he is not but where or why he is here. States last time he fell was a few months ago. Denies any pain but feels generally weak at this time. Denies chest pain, shortness of breath or abdominal pain. Remainder of ROS unobtainable due to cognitive state. Principal Diagnosis Acute metabolic encephalopathy Polypharmacy Left acetabulum fracture Pelvis fracture Discharge Exam Please refer from today's progress note for physical exam Discharge Data Allergies Allergy/AdvReac Type Severity Reaction Status Date / Time No Known Allergies Allergy Verified 05/24/23 13:12 Consultations 05/24/23 12:24 ED Decision to Admit Stat 05/25/23 16:49 Consult Orthopedic Surgery Routine Ordered Studies 05/24/23 09:53 CT Brain [CT head/brain wo con] Stat 05/26/23 10:24 CT pelvis wo con Routine Hospital Course (1) Falls frequently: (2) S/P hip replacement: (3) Persistent atrial fibrillation: (4) CKD (chronic kidney disease), stage III: (5) Chronic anemia: (6) Elevated troponin I level: (7) CHF (congestive heart failure): (8) Dizziness: Plan This is an 88-year-old male with PMH DM II, atrial fibrillation on chronic Eliquis, h/o symptomatic bradycardia s/p pacemaker, CKD III, chronic diastolic CHF (with EF 50% in 02/2021), moderate mitral regurgitation and aortic regurgitation, history of L hip fracture 2/2 fall with surgical repair in Sep 2021 who presents after multiple falls at [facility] where he lives in Independent living. Family expresses concern that he can not manage his own medications and also that he would need high level of care after discharge. Multiple falls Generalized weakness Acute metabolic encephalopathy Falls 3 days in a row at apartment, found on the ground overnight UA unremarkable, CXR with cardiomegaly without overt pulmonary edema, trace pleural effusions Concern for polypharmacy due to history of patient taking his medications incorrectly Troponin with slight elevation. TTE with no wall motion abnormality, EF unchanged from prior PPM interrogated 02/2023. 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 He will be returning back to [facility] for rehab. After rehab, may need to be in emt intermediate care Left hip pain Left acetabular fracture Sacral fracture -Hip and pelvis X ray shows left acetabular fracture (site of prior prosthesis) -CT pelvis shows additional fractures -Evaluated by ortho05/26 and cleared for left toe touch -Follow up with Dr Meek Davila in 3-4 weeks Elevated troponin EKG with paced rhythm, no significant change from previous Missed medications x 2 days Patient denies chest pain currently or recently Hi sensitivity trop elevated: 65--> 98--> 118--> 85 TTE with no wall motion abnormality Mild Rhabdomyolysis Appears dehydrated on admission. Received 1L NSS in ER then 1 day of IVF infusion here CK improved and additional fluids discontinued Acute metabolic encephalopathy -Confusion due to polypharmacy and dehydration -Mental status back to baseline CAD (coronary artery disease) S/p CABG. Continue aspirin, atorvastatin, carvedilol, losartan per home regimen CKD (chronic kidney disease), stage III Cr 1.22 (at baseline) Atrial fibrillation Chronic atrial fibrillation on Eliquis. Continue carvedilol per home regimen He was continued on Eliquis here and at discharge since he will be going to a monitored setting. If he will be returning to Independent Living after rehab--> will need further discussion with his Food Order Expediter regarding risk of bleed vs benefit in setting of falls CHF (congestive heart failure) History chronic systolic, diastolic heart failure. EF 50% in 02/2021 Continue Lasix Euvolemic at discharge Total Time Total Time Spent Total Time Spent (In Minutes): 40 Discharge Plan Discharge Items Patient Disposition: Transfer [facility] Fac Reason For Visit: MULTIPLE FALLS, SUSPECTED UTI Discharge Diagnosis: Acute metabolic encephalopathy Polypharmacy Left acetabulum fracture Pelvis fracture Condition on Discharge: Good Activity: As commented below Activity Comment: Toe touch of left leg. Ambulate with walker Weightbearing: Left toe touch Non-emergency contact: Primary Care Provider and Surgeon Call non-emergency contact if: you have any medication questions Follow-up/Referrals: Shorty Rich DO [Food Order Expediter] - (To discuss whether you should remain on Eliquis due to your frequent falls) Cady Russell PA-C [Primary Care Provider] - Meek Davila DO [Physician] - Diet: Carb Consistent or DM2 and Heart Healthy Diet Texture: Dental soft (bite-sized) Addtl Attending Provider Instructions: You were admitted for multiple falls at [facility] You were found to have a left acetabulum and pelvic fracture You need to remain LEFT TOE TOUCH and ambulate with a walker You should follow up with Dr Davila who is your orthopedic surgeon in 3-4 weeks after discharge for follow up of your hip Your Pacemaker was interrogated here and no events were noted. Please follow up with your Food Order Expediter after discharge You are on Eliquis and it was continued here and at discharge so you will be going to rehab. Please discuss with your primary stud setter Dr Rich whether you should remain on eliquis with your frequent falls Pending Studies at Discharge: No Stand-Alone Forms: My [facility] Skilled Items Patient informed of condition?: Yes DNR: Yes Discharge Level of Care: Skilled Communicable Disease: No Discharge Prognosis: Stable Lines: None Urinary Catheter: No Medications and DC Order Prescriptions: New sennosides-docusate sodium [Senokot-S] 8.6-50 mg Tablet 1 tab PO QAM 14 Days Qty: 14 0RF tramadol 50 mg Tablet 50 mg PO Q4H PRN (Reason: pain) 7 Days Qty: 15 0RF acetaminophen [Tylenol Extra Strength] 500 mg Tablet 1,000 mg PO TID 7 Days Qty: 42 0RF Continued aspirin 81 mg Tablet,Delayed Release (Dr/Ec) 81 mg PO QAM Lumigan 0.01 % Drops 1 drp OPB HS brimonidine 0.2 % drops 1 drp OPL TID Vitron-C 65 mg iron- 125 mg tablet,delayed release (DR/EC) 1 tab PO [id number] Rx Instructions: take once a day on mon,wed,fri only furosemide 40 mg tablet 40 mg PO QAM folic acid 1 mg tablet 1 mg PO HS Eliquis 2.5 mg tablet 2.5 mg PO BID cyanocobalamin (vitamin B-12) 1,000 mcg tablet 1,000 mcg PO QAM carvedilol 3.125 mg tablet 3.125 mg PO BID isosorbide mononitrate 30 mg Tablet Extended Release 24 Hr 30 mg PO QAM Qty: 30 0RF potassium chloride [Klor-Con 10] 10 mEq Tablet Extended Release 5 meq PO HS atorvastatin 40 mg tablet 40 mg PO QAM nitroglycerin 0.4 mg Tablet, Sublingual 0.4 mg sublingual UD PRN (Reason: Angina) ferrous sulfate 325 mg (65 mg iron) tablet 65 mg PO QAM sertraline 25 mg tablet 25 mg PO QAM metformin 500 mg tablet extended release 24 hr 500 mg PO QAM finasteride 5 mg tablet 5 mg PO QAM losartan 25 mg tablet 12.5 mg PO QAM Discharge Orders: Discharge Order (Routine); Ordered 05/28/23 Ordered By: Leo Jay/Other Patient Handouts: High Blood Sugar (Hyperglycemia), Hypoglycemia (Low Blood Sugar), Managing Type 2 Diabetes Admission Data Admit Date/Time: 05/24/23 12:48 Attending Provider: Leo Rosenthal Admit Provider: Nathan Gamino Primary Care Provider: Cady Russell Other Providers: Nathan Gamino ; Meek Davila ; [facility]
== END 2023-05-28 14:03 | DRG 917 ==
LOC: ED 09:43 → EDINP 12:48 → SUATTDRO 12:48 → 2W 14:01
DX: F39 Unspecified mood [affective] disorder; Z79.84 Long term (current) use of oral hypoglycemic drugs; I50.32 Chronic diastolic (congestive) heart failure; W18.39XA Other fall on same level, initial encounter; I48.19 Other persistent atrial fibrillation; S09.90XA Unspecified injury of head, initial encounter; Z96.642 Presence of left artificial hip joint; E86.0 Dehydration; Z95.0 Presence of cardiac pacemaker; E11.22 Type 2 diabetes mellitus with diabetic chronic kidney disease; Z79.82 Long term (current) use of aspirin; R29.6 Repeated falls; Z79.01 Long term (current) use of anticoagulants; N18.30 Chronic kidney disease, stage 3 unspecified; S32.402A Unspecified fracture of left acetabulum, initial encounter for closed fracture; G92.8 Other toxic encephalopathy; Z95.1 Presence of aortocoronary bypass graft; Y92.039 Unspecified place in apartment as the place of occurrence of the external cause; Z79.899 Other long term (current) drug therapy; I13.0 Hypertensive heart and chronic kidney disease with heart failure and stage 1 through stage 4 chronic kidney disease, or unspecified chronic kidney disease; I08.0 Rheumatic disorders of both mitral and aortic valves; D64.9 Anemia, unspecified; S32.10XA Unspecified fracture of sacrum, initial encounter for closed fracture; T50.901A Poisoning by unspecified drugs, medicaments and biological substances, accidental (unintentional), initial encounter; E11.40 Type 2 diabetes mellitus with diabetic neuropathy, unspecified; R79.89 Other specified abnormal findings of blood chemistry; I25.10 Atherosclerotic heart disease of native coronary artery without angina pectoris

== ENCOUNTER 2023-09-23 20:53 | Inpatient (IN) ==
--- OUTSIDE RECORDS SUMMARY | 2023-09-23 21:00 | External Medical Summary ---
Author Name Unknown Address Unknown Organization [id number]:[facility] [address] [place] [id number] Laboratory Report Ordering Provider Test Date Status KALEY KERNS 09/10/2023 05:23:00 Final Observation Date Value Abnormality Reference (Units ) Status WBC, Total 09/10/2023 05:23:00 7.22 4.00-10.8 0 (K/uL) Final RBC 09/10/2023 05:23:00 2.83 4.50-5.25 (M/uL) Final Hemoglobin 09/10/2023 05:23:00 8.4 Below low normal 14 .0-16.8 (g/dL) Final HCT 09/10/2023 05:23:00 26.6 Below low normal 40. 0-48.4 (%) Final MCV 09/10/2023 05:23:00 94.0 82.0-99.5 (fL) Final MCH 09/10/2023 05:23:00 29.7 27.0-34.0 (pg) Final MCHC 09/10/2023 05:23:00 31.6 32.0-36.0 (g/dL) Final RDW 09/10/2023 05:23:00 16.6 11.5-15.5 (%) Final Platelets 09/10/2023 05:23:00 312 140-400 (K /uL) Final MPV 09/10/2023 05:23:00 9.6 6.6-11.1 ( fL) Final Performing Location [facility] [address] [place] [id number]
--- OUTSIDE RECORDS SUMMARY | 2023-09-23 21:00 | External Medical Summary ---
Author Name Unknown Address Unknown Organization [id number]:[facility]AT[facility] [address] [facility] [id number] Laboratory Report Ordering Provider Test Date Status KALEY KERNS 09/10/2023 05:23:00 Final Observation Date Value Abnormality Reference (Units ) Status SYNC LEUKOCYTES IN BLOOD BY AUTOMATED COUNT 09/10/2023 05:23:00 7.22 4.00-10.80 (K/uL) Final Segs 09/10/2023 05:23:00 57.9 40.0-75.0 (%) Final Lymphs % 09/10/2023 05:23:00 19.9 18.0-42.0 (%) Final Monos 09/10/2023 05:23:00 9.6 1.0-11.0 (%) Final Eosinophils 09/10/2023 05:23:00 12.2 Above high normal 0.0-6.0 (%) Final Basos 09/10/2023 05:23:00 0.4 0.0-2.0 (%) Final Absolute Segs 09/10/2023 05:23:00 4.18 1.80-7.70 (K/uL) Final Lymphs, absolute 09/10/2023 05:23:00 1.44 1.00-4.80 (K/ul) Final Monos, Abs 09/10/2023 05:23:00 0.69 0.00-1.10 (K/uL) Final Eos, Abs 09/10/2023 05:23:00 0.88 Above high normal 0.00-0.70 (K/uL) Final Basos, Abs 09/10/2023 05:23:00 0.03 0.00-0.20 (K/uL) Final Performing Location [facility] [address] [place] [id number]
--- OUTSIDE RECORDS SUMMARY | 2023-09-23 21:00 | External Medical Summary | Summary of Care ---
Author Name Unknown Organization [facility] Address [address] [place] [address] Phone [phone] Care Team Providers Care Rail Splitter Name Role Phone Jaelyn Pemberton MD Primary Care Prov ider Reason for Visit * Reason Onset Date Comments Intermediate Visit 09/21/2023 Encounter Details Date Type Department Care Team (Latest Contact Info) Description 09/21/2023 7:00 AM EST Intermediate Visit [facility] [address] [place] [address] Thao Fernandez PA-C [address] [place] [address] Dysuria*; Prostatitis, unspecified prostatitis type; BPH with obstruction/lower urinary tract symptoms; Iron deficiency anemia due to chronic blood loss; Persistent atrial fibrillation (HCC) Allergies No known active allergiesdocumented as of this encounter (statuses as of 09/21/2023) Medications Medication Sig Dispensed Refills Start Date End Date Status Acetaminophen 325 MG Oral Tablet (Tylenol) Take 2 Tablets by mouth every 4 hours as needed for Fever >38C(100.5F) or Pain, Breakthrough. 100 Tablet 0 10/11/2021 Active Aspirin EC 81 MG Oral Tablet Delayed Release Take 1 Tablet by mouth daily. 100 Tablet 3 11/17/2021 Active Brimonidine Tartrate 0.2 % Ophthalmic Solution (Alphagan) Instill 1 Drop into the left eye 3 times a day. 5 mL 0 11/17/2021 Active Lumigan 0.01 % Ophthalmic Solution (Bimatoprost) Instill 1 Drop into both eyes at bedtime. 3 mL 0 11/17/2021 Active Nitroglycerin 0.4 MG Sublingual Tablet Sublingual (Nitrostat) Place 1 Tablet under the tongue every 5 minutes as needed for Pain, Chest. 25 Tablet 1 11/17/2021 Active Finasteride 5 MG Oral Tablet (Proscar) Take 1 Tablet (5 mg) by mouth in the morning. 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 180 Tablet 1 04/16/2023 Active metFORMIN HCl ER 500 MG Oral Tablet Extended Release 24 Hour (Glucophage XR) Take 1 Tablet by mouth in the morning. 90 Tablet 3 05/08/2023 Active traMADol HCl 50 MG Oral Tablet (Ultram) Take 1 Tablet by mouth every 6 hours as needed for Pain, Moderate or Pain, Severe. 60 Tablet 0 05/28/2023 Active Isosorbide Mononitrate ER 30 MG Oral Tablet Extended Release 24 Hour (Imdur) Take 1 Tablet by mouth in the morning. 90 Tablet 1 05/28/2023 Active Potassium Chloride ER 10 MEQ Oral Capsule Extended Release Take 1 Capsule by mouth in the morning. One tablet in the morning. 90 Capsule 1 05/28/2023 Active Ferrous Sulfate 325 (65 Fe) MG Oral Tablet (Feosol)Indications:Ir on deficiency anemia, unspecified iron deficiency anemia type Take 1 Tablet by mouth in the morning and 1 Tablet in the evening. 0 06/11/2023 Active Losartan Potassium 25 MG Oral Tablet (Cozaar)Indications:Hy pertension goal BP (blood pressure) < 140/90,Systolic CHF with reduced left ventricular function, NYHA class 2 (HCC),Coronary artery disease involving [place] coronary artery of [place] heart without angina pectoris TAKE 1/2 TAB BY MOUTH IN THE MORNING *HOLD IF BLOOD PRESSURE IS LESS THAN 110/70 45 Tablet 2 06/15/2023 Active Dorzolamide HCl-Timolol Mal 22.3-6.8 MG/ML Ophthalmic Solution (Cosopt Ocumeter Plus) INSTILL 1 DROP INTO THE LEFT EYE 3 TIMES DAILY 10 mL 0 07/16/2023 Active Furosemide 20 MG Oral Tablet (Lasix) Take 1 Tablet by mouth in the morning. 0 08/02/2023 Active Sennosides-Docusate Sodium 8.6-50 MG Oral Tablet (Senna S) Take 2 tablets in AM and 1 tablet at bedtime 90 Tablet 0 08/22/2023 Active Mirtazapine 15 MG Oral Tablet (Remeron) Take 1 Tablet by mouth at bedtime. 0 09/04/2023 Active documented as of this encounter (statuses as of 09/21/2023) Active Problems Problem Noted Date Diagnosed Date BPH with obstruction/lower urinary tract symptom s 08/20/2023 Iron deficiency anemia 08/06/2023 DNR (do not resuscitate) 07/26/2023 Closed fracture of superior ramus of left pubis with routine healing 05/30/2023 Closed fracture of left inferior pubic ramus 10/2022 Closed fracture of sacrum with routine healing 0 05/29/2023 Moderate aortic regurgitatio n with left ventricular dilation by prior echocardiogram 05/29/2023 Moderate mitral regurgitation by prior echocardi ogram 05/29/2023 Mild tricuspid regurgitation by prior echocardio gram 05/29/2023 Closed nondisplaced fracture of medial wall of left acetabulum 05/28/2023 Calculus of gallbladder with out cholecystitis without obstruction 05/28/2023 S/P total left hip arthroplasty 10/11/2021 S/p left hip fracture 10/11/2021 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 10/11/2021 Persistent atrial fibrillation 10/11/2021 Type 2 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 10/10/2021 Overview: Per CKD protocol Hiatal hernia 09/09/2021 Systolic CHF with reduced le ft ventricular function, NYHA class 2 01/06/2020 Dizziness 09/23/2019 Balance disorder 09/23/2019 B12 deficiency 09/23/2019 Hypertension goal BP (blood pressure) < 140/90 1 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 08/20/2019 Blurry vision, left eye 08/20/2019 Cardiac pacemaker in situ 08/20/2019 Falls frequently 08/20/2019 Lightheaded 08/20/2019 Headache, unspecified headache type 08/20/2019 History of brain tumor 08/20/2019 Mitral stenosis Hyperlipidemia Coronary artery disease invo lving [place] coronary artery of [place] heart without angina pectoris Moderate aortic stenosis by prior echocardiogram documented as of this encounter (statuses as of 09/21/2023) Resolved Problems Problem Noted Date Diagnosed Date Resolved Date Calcification of aortic valve 05/29/2023 08/22/2023 Type 2 diabetes mellitus wit h stage 3b chronic kidney disease, without long-term current use of insulin 01/12/2023 02/08/2023 Status post left hip replacement 10/10/2021 12/23/2021 Chronic kidney disease, stage 3b 10/10/2021 08/22/2023 Overview: Per CKD protocol Chronic kidney disease, stage 3a 04/12/2021 10/13/2021 Overview: Per CKD protocol Type 2 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 03/08/2021 10/13/2021 Overview: Per CKD protocol Diabetes mellitus with stage 3 chronic kidney disease 06/07/2020 03/10/2021 Overview: Per CKD protocol Type 2 diabetes mellitus wit hout complication, without long-term current use of insulin 10/11/2021 Chest pain 11/22/2021 documented as of this encounter (statuses as of 09/21/2023) Immunizations Name Administration Dates Next Due COVID-19 mRNA, LNP-s, No Pre serve, 2-Dose Series ([facility]) 08/05/2021,12/12/2020,11/21/2020 COVID-19, LNP-s, No Preserve , Rashawn-sucrose, Ages 12+ (Pfizer) 04/05/2022 Pneumococcal Conjugate Vacc, 13 Valent (Prevnar) 08/20/2019 Pneumococcal Polysaccharide PPV23 (Pneumovax) 08/23/2020 Season Influenza, Quad, PF, Adjuvanted, 65+ Yrs, IM (FLUAD) 08/14/2023,07/10/2020 Seasonal Influenza Virus Vac cine, Unspecified Formulation 08/20/2019 Seasonal Influenza, Quadriva lent Hd (Fluzone Hd) 07/11/2022,09/09/2021 Seasonal Influenza, Trivalen t, Adjuvanted, 65+ yrs 08/20/2019 TDAP (age 10 and older)(Boostrix) 08/23/2020 Zoster Vaccine Recombinant (Shingrix) 04/22/2021 ,08/08/2020 documented as of this encounter Social History Tobacco Use Types Packs/Day Years Used Date Smoking Tobacco: Former Cigarettes 5 3 Q uit: 2018 Pipe Smokeless Tobacco: Never Comments:Rarely smokes a pip e, infrequent Alcohol Use Standard Drinks/Week Comments Yes 0 (1 standard drink = 0.6 oz pur e alcohol) rare AUDIT-C Answer Date Recorded Frequency of Alcohol Consumption Monthly or less 08/20/2019 Average Number of Drinks 1 or 2 019 Frequency of Binge Drinking Never 07/30 PHQ-2 Answer Date Recorded PHQ Adult Total Score 1 04/30/2023 Hunger Vital Sign Answer Date Recorded Within the past 12 months, y ou worried that your food would run out before you got the money to buy more. Never true 04/30/20 23 Within the past 12 months, t he food you bought just didn't last and you didn't have money to get more. Never true 04/30/2023 Sex and Gender Information Value Date Recorded Sex Assigned at Male 04/26/2021 2:45 PM EDT Gender Identity Male 04/26/2021 2:45 PM EDT Sexual Orientation Straight 04/26/2021 2: 45 PM EDT Job Start Date Occupation Industry Not on file Not on file Not on file documented as of this encounter Plan of Treatment Upcoming Encounters Date Type Department Care Team (Late st Contact Info) Description 09/26/2023 11:15 AM EST Office Visit Urology, [facility] [address] [facility] [place] [address] Vitaliy Maria MD [address] [facility] [place] [address] [place] [address] 12/17/2023 3:20 PM EST Office Visit Dermatology [address] [place] [address] Keira De Jesus PA-C [address] [place] [address] [place] [address] 03/14/2024 9:00 AM EDT Cardiac Studies Cardiology, [facility] 132 [facility] [place] [address] [place], [facility] 132 [facility] [place] [address] 05/02/2024 2:00 PM EDT Nurse Only Ancillary [address] [place] [address] [place], Nurse Annual [address] [place] [address] Health Maintenance Due Date Last Done Comments Hepatitis B (1 of 3 - Risk 3-dose series) 1996 Diabetic Foot Exam 04/22/2022 04/22/2021, 09/23/2019 COVID-19 Vaccine ( season) 2023 04/05/2022, 08/05/2021, 12/12/2020, Additional history exists Albumin/Creatinine Ratio 07/11/2023 07/11/2022, 08/30 HbA1c 07/15/2023 01/12/2023, 0904/2022, 11/22/2021, Additional history exists CKD PHOS USE SMARTSET 63867 01/13/2024 01/12/2023, 0 05/04/2021 Diabetic Eye Exam 03/15/2024 03/15/2023, , 06/20/2022, Additional history exists Depression Screening 04/30/2024 04/30/2023 CKD HGB USE SMARTSET 09814 09/17/202409/17, 09/17/2023, 09/10/2023, Additional history exists DTaP,Tdap,and Td Vaccines (2 - Td or Tdap) 08/23/2030 08/23/2020 Pneumococcal Vaccine: 65+ Years Completed 08/23/2020, 08/20/2019 Zoster Vaccines Completed 04/22/2021, 08/08/2020 Influenza Vaccine (FLU shot) Completed , 07/11/2022, 09/09/2021, Additional history exists GARDASIL-HPV IMMUNIZATION SERIES Aged Out No longer eligible based on patient's age to complete this topic MENINGOCOCCAL (MENACTRA/MENVEO) Aged Out No longer eligible based on patient's age to complete this topic documented as of this encounter Medical Devices Not on filedocumented as of this encounter Visit Diagnoses Diagnosis Dysuria- Primary Prostatitis, unspecified prostatitis type BPH with obstruction/lower urinary tract symptoms Hypertrophy of prostate with urinary obstruction and other lower urinary tract symptoms (LUTS) Iron deficiency anemia due to chronic blood loss Iron deficiency anemia secondary to blood loss (chronic) Persistent atrial fibrillation (HCC) Atrial fibrillation documented in this encounter Advance Directives Documents on File Type Date Recorded Patient Open Cut Examiner Expl anation Power of Signal Supervisor 01/13/2019 POWER OF A TTORNEY Healthcare Agents on File Name Relationship Healthcare Agent Relationship Communication Ian Henriquez Other - (no specific identity) Health Care Agent (per Health Care Power of Signal Supervisor document) Care Teams Rail Splitter Relationship Specialty Start Date End Date Jaelyn Pemberton MD [address] [place] [address] [place] [phone] PCP - General Family Medicine 08/20/19 documented as of this encounter
--- OUTSIDE RECORDS SUMMARY | 2023-09-23 21:00 | External Medical Summary ---
Author Name Unknown Address Unknown Organization [id number]:[facility] [address] [facility] [address] Laboratory Report Ordering Provider Test Date Status KALEY KERNS 09/03/2023 05:30:00 Final Observation Date Value Abnormality Reference (Units ) Status SYNC LEUKOCYTES IN BLOOD BY AUTOMATED COUNT 09/03/2023 05:30:00 7.06 4.00-10.80 (K/uL) Final Segs 09/03/2023 05:30:00 60.9 40.0-75.0 (%) Final Lymphs % 09/03/2023 05:30:00 18.1 18.0-42.0 (%) Final Monos 09/03/2023 05:30:00 9.1 1.0-11.0 (%) Final Eosinophils 09/03/2023 05:30:00 11.3 Above high normal 0.0-6.0 (%) Final Basos 09/03/2023 05:30:00 0.6 0.0-2.0 (%) Final Absolute Segs 09/03/2023 05:30:00 4.30 1.80-7.70 (K/uL) Final Lymphs, absolute 09/03/2023 05:30:00 1.28 1.00-4.80 (K/ul) Final Monos, Abs 09/03/2023 05:30:00 0.64 0.00-1.10 (K/uL) Final Eos, Abs 09/03/2023 05:30:00 0.80 Above high normal 0.00-0.70 (K/uL) Final Basos, Abs 09/03/2023 05:30:00 0.04 0.00-0.20 (K/uL) Final Performing Location [facility] [address] [place] [address]
--- OUTSIDE RECORDS SUMMARY | 2023-09-23 21:00 | External Medical Summary | Summary of Care ---
Author Name Unknown Organization [facility] Address [address] [place] [address] Phone [phone] Care Team Providers Care Microsystems Engineer Name Role Phone Jaelyn Pemberton MD Primary Care Prov ider Reason for Visit * Reason Comments Pacemaker Clinic Encounter Details Date Type Department Care Team (Latest Contact Info) Description 09/12/2023 10:30 AM EST Cardiac Studies Cardiology, [facility] [address] [place] [address] [place], Pacer [facility] [address] [place] [address] Persistent atrial fibrillation (HCC)*; Cardiac pacemaker in situ; Bradycardia Allergies No known active allergiesdocumented as of this encounter (statuses as of 09/22/2023) Medications Medication Sig Dispensed Refills Start Date [...] 02/07/2023 Active Folic Acid 1 MG Oral TabletIndications:An emia, unspecified type TAKE 1 TABLET BY MOUTH EVERY DAY IN THE MORNING 90 Tablet 1 03/05/2023 Active Atorvastatin Calcium 40 MG Oral Tablet (Lipitor)Indications :Hyperlipidemia, unspecified hyperlipidemia type TAKE 1 TABLET BY MOUTH EVERYDAY AT BEDTIME 90 Tablet 1 04/07/2023 Active Carvedilol 3.125 MG Oral Tablet (Coreg)Indications:S ystolic CHF with reduced left ventricular function, NYHA class 2 (HCC),Hypertension goal BP (blood pressure) < 140/90,Coronary artery disease involving [place] coronary artery of [place] heart without angina pectoris Take 1 Tablet [...] Sulfate 325 (65 Fe) MG Oral Tablet (Feosol)Indications: Iron deficiency anemia, unspecified iron deficiency anemia type Take 1 Tablet by mouth in the morning and 1 Tablet in the evening. 0 06/11/2023 Active Losartan Potassium 25 MG Oral Tablet (Cozaar)Indications: Hypertension goal BP (blood pressure) < 140/90,Systolic CHF with reduced left ventricular function, NYHA class 2 (HCC),Coronary artery disease involving [place] coronary artery of [place] heart without angina pectoris TAKE 1/2 TAB [...] by mouth at bedtime. 0 09/04/2023 Active Apixaban 2.5 MG Oral Tablet (Eliquis)Indications :Coronary artery disease involving [place] coronary artery of [place] heart without angina pectoris Take 1 Tablet by mouth in the morning and 1 Tablet before bedtime. 180 Tablet 1 12/18/2022 3 Discontinue d(Patient preference/ discontinua tion) documented as of this encounter (statuses as of 09/22/2023) Active Problems Problem Noted Date Diagnosed Date [...] stenosis Hyperlipidemia Coronary artery disease invo lving [place] coronary artery of [place] heart without angina pectoris Moderate aortic stenosis by prior echocardiogram documented as of this encounter (statuses as of 09/22/2023) Resolved Problems Problem Noted Date Diagnosed Date [...] as of this encounter (statuses as of 09/22/2023) Immunizations Name Administration Dates Next Due COVID-19 mRNA, LNP-s, No Pre serve, 2-Dose Series ([employer]) 08/05/2021,12/12/2020,11/21/2020 COVID-19, LNP-s, No Preserve , Rashawn-sucrose, [...] Tobacco: Former Cigarettes 5 3 Q uit: 2019 Pipe Smokeless Tobacco: Never Comments:Rarely smokes a [...] on file documented as of this encounter Progress Notes * Urmila Myers RN - 09/22/2023 10:01 AM EST In office interrogation performed. Providers see scanned report in scans tab labeled MURJ. documented in this encounter Nursing Notes * Tami Hogue RN - 09/13/2023 2:58 PM EST Patient and implanted device were evaluated today in the [facility]. Providers please see scanned report in the Scans tab. Tami Hogue RN Tech: ChuchoRae Seymour documented in this encounter Plan of Treatment Upcoming Encounters Date Type Department Care Team (Late st Contact Info) Description 09/26/2023 11:15 AM EST Office Visit Urology, [facility] 132 [facility] [place] [address] Vitaliy Maria MD 27 [facility] [address] [place] [address] 12/17/2023 3:20 PM EST Office Visit Dermatology [address] [place] [address] Keira De Jesus PA-C [address] [place] [address] [place] [id number] 03/14/2024 9:00 AM EDT Cardiac Studies Cardiology, [facility] 132 [facility] [place] [address] [facility] [address] [facility] [place] [address] 05/02/2024 2:00 PM EDT Nurse Only Ancillary [address] [place] [address] [place], Nurse [address] [place] [address] Scheduled Orders Name Type Priority Associated Diagnoses Orde r Schedule PACEMAKER WITH INTERPRETATION Procedures Routine Persistent atrial fibrillation (HCC) Cardiac pacemaker in situ Bradycardia Ordered: 09/13/2023 Health Maintenance Due Date Last Done Comments Hepatitis B (1 of 3 - Risk 3-dose series) 1996 Diabetic Foot Exam 04/22/2022 04/22/2021, 09/23/2019 COVID-19 Vaccine ( season) 2023 04/05/2022, 08/05/2021, 12/12/2020, Additional history exists Albumin/Creatinine Ratio 07/11/2023 07/11/2022, 08/30 HbA1c 07/15/2023 01/12/2023, 04/2022, 11/22/2021, Additional history exists CKD PHOS USE SMARTSET 62044 01/13/2024 01/12/2023, 0 05/04/2021 Diabetic Eye Exam 03/15/2024 03/15/2023, , 06/20/2022, Additional history exists Depression Screening 04/30/2024 04/30/2023 CKD HGB USE SMARTSET 77196 09/17/202409/17, 09/17/2023, 09/10/2023, Additional history exists DTaP,Tdap,and [...] as of this encounter Visit Diagnoses Diagnosis Persistent atrial fibrillation (HCC)- Primary Atrial fibrillation Cardiac pacemaker in situ Bradycardia Other specified cardiac dysrhythmias documented in this encounter Advance Directives Documents on File Type Date Recorded Patient Chicken Cutter Expl anation Power of Customer Solutions Coordinator 01/13/2019 POWER OF A TTORNEY Healthcare Agents on File Name Relationship Healthcare Agent Relationship Communication Ian Henriquez Other - (no specific identity) Health Care Agent (per Health Care Power of Customer Solutions Coordinator document) Care Teams Microsystems Engineer Relationship Specialty Start Date End Date Jaelyn Pemberton MD [address] [place] [address] [place] [address] PCP - General Family Medicine 08/20/19 documented as of this encounter
--- OUTSIDE RECORDS SUMMARY | 2023-09-23 21:00 | External Medical Summary | Summary of Care ---
Author Name Unknown Organization [facility] Address [address] [place] [address] Phone [phone] Care Team Providers Care Special Education Tutor Name Role Phone Jaelyn Pemberton MD Primary Care Prov ider Reason for Visit * Reason Comments Follow Up Encounter Details Date Type Department Care Team (Late st Contact Info) Description 09/18/2023 2:30 PM EST Office Visit Cardiology, [facility] [address] [place] [address] Shorty Rich, [address] [place] [address] Chronic atrial fibrillation (HCC)*; Cardiac pacemaker in situ Allergies No known active allergiesdocumented as of this encounter (statuses as of 09/18/2023) Medications Medication Sig Dispensed Refills Start Date [...] (blood pressure) < 140/90,Coronary artery disease involving [place]ne[place] coronary artery of [place]ne[place] heart without angina pectoris Take 1 Tablet [...] NYHA class 2 (HCC),Coronary artery disease involving chene[place] coronary artery of [place]ne[place] heart without angina pectoris TAKE 1/2 TAB [...] Oral Tablet (Eliquis)Indications :Coronary artery disease involving chene[place] coronary artery of [place]ne[place] heart without angina pectoris Take 1 Tablet by mouth in the morning and 1 Tablet before bedtime. 180 Tablet 1 12/18/2022 3 Discontinue d(Patient preference/ discontinua tion) documented as of this encounter (statuses as of 09/18/2023) Active Problems Problem Noted Date Diagnosed Date [...] stenosis Hyperlipidemia Coronary artery disease invo lving chenega coronary artery of chenega heart without angina pectoris Moderate aortic stenosis by prior echocardiogram documented as of this encounter (statuses as of 09/18/2023) Resolved Problems Problem Noted Date Diagnosed Date [...] as of this encounter (statuses as of 09/18/2023) Immunizations Name Administration Dates Next Due COVID-19 mRNA, LNP-s, No Pre serve, 2-Dose Series (Pfizer) 08/05/2021,12/12/2020,11/21/2020 COVID-19, LNP-s, No Preserve , Rashawn-sucrose, [...] on file documented as of this encounter Last Filed Vital Signs Vital Sign Reading Time Taken Comments Blood Pressure 114/66 09/18/2023 2:26 PM EST Pulse 64 09/18/2023 2:26 PM EST Temperature - - Respiratory Rate - - Oxygen Saturation - - Inhaled Oxygen Concentration - - Weight - - Height - - Body Mass Index - - documented in this encounter Progress Notes * LaylaShorty, DO - 09/18/2023 2:42 PM EST Cardiology Outpatient Follow-up Delio Padilla is a 88 year old male who is seen for follow-up of atrial fibrillation. HPI: This is an elderly 88-year-old male patient who is brought here today by an attendant from [facility]. He has a history of ischemic heart disease and underwent coronary artery bypass surgery in [place] in 2007. He received a pacemaker due to symptomatic bradycardia with a history of chronic atrial fibrillation. It is a [employer] device which was recently interrogated and the patient has about8 months left on his battery life. Unfortunately, Delio has fallen multiple times recently sustaining a hip fracture and is currently in a wheelchair. There is concern regarding the continued use of Eliquis due to his fall risk. I agree and I think the Eliquis should be stopped. He will continue with aspirin 81 mg daily. 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, NYHA class 2 ([facility]) 01/06/2020 Patient Active Problem List Diagnosis Code Hypertension goal BP (blood pressure) < 140/90 I10 Mitral stenosis I05.0 Hyperlipidemia E78.5 Coronary artery disease involving chenega coronary artery of chenega heart without angina pectoris I25.10 Moderate aortic stenosis by prior echocardiogram I35.0 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 H54.40, H54.50 Blurry vision, left eye H53.8 Cardiac pacemaker in situ Z95.0 Falls frequently R29.6 Lightheaded R42 Headache, unspecified headache type R51.9 History of brain tumor Z87.898 Dizziness R42 Balance disorder R26.89 B12 deficiency E53.8 Systolic CHF with reduced left ventricular function, NYHA class 2 ([facility]) I50.20 Hiatal hernia K44.9 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 S/p left hip fracture Z87.81 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 episode ([facility]) F32.0 Persistent atrial fibrillation ([facility]) I48.19 Type 2 diabetes mellitus with stage 3a chronic kidney disease ([facility]) E11.22, N18.31 Closed nondisplaced fracture of medial wall of left acetabulum ([facility]) S32.475A Calculus of gallbladder without cholecystitis without obstruction K80.20 Closed fracture of left inferior pubic ramus ([facility]) S32.592A Closed fracture of sacrum with routine healing S32.10XD Moderate aortic regurgitation with left ventricular dilation by prior echocardiogram I35.1, I51.7 Moderate mitral regurgitation by prior echocardiogram I34.0 Mild tricuspid regurgitation by prior echocardiogram I07.1 Closed fracture of superior ramus of left pubis with routine healing S32.512D DNR (do not resuscitate) Z66 Iron deficiency anemia D50.9 BPH with obstruction/lower urinary tract symptoms N40.1, N13.8 Past Surgical History: Procedure Laterality Date ADULT ECHOCARDIOGRAM 05/25/2023 moderate LVH, LV systolic function normal. LVEF 50 to 55%. LA moderately dilated. Severe calcification aortic valve. Moderate aortic regurgitation. Moderate . Moderate MR. Mild TR. [facility] CABG, ARTERIAL, SINGLE 1999 COLONOSCOPY, DIAGNOSTIC (RECTUM) 09/09/2019 poor prep, repeat / COLONOSCOPY FLEXIBLE PROXIMAL DIAGNOSTIC performed [facility] COLONOSCOPY, DIAGNOSTIC (RECTUM) 09/10/2019 normal / COLONOSCOPY FLEXIBLE PROXIMAL DIAGNOSTIC performed by Filipe Hankins MD at [facility] EGD, FLEXIBLE, DIAGNOSTIC 07/21/2021 hiatal hernia / [facility] VT AP POST-VOIDING RESIDUAL URINE&/BLADDER CAP 08/23/2023 pre void 247cc post void 117 cc. midline hernia superior to bladder 6.7 cm by 3.5 cm by 5.5 cm. Leila Marquez TOTAL HIP REPLACEMENT & PROSTHESIS Left 10/07/2021 Dr. Davila--left hip fracture Family History Problem Relation Age of Onset Heart Disorder Mother Heart disease Mother Cancer Father prostate Prostate cancer Father Social History Tobacco Use Smoking status: Former Packs/day: 5.00 Years: 3.00 Additional pack years: 0.00 Total pack years: 15.00 Types: Pipe, Cigarettes Quit date: 2018 Years since quittin.8 Smokeless tobacco: Never Tobacco comments: Rarely smokes a pipe, infrequent Vaping Use Vaping Use: Never used Substance Use Topics Alcohol use: Yes Comment: rare Drug use: Never Review of patient's allergies indicates: No Known Allergies Current Outpatient Medications Medication Sig Dispense Refill Acetaminophen 325 MG Oral Tablet (Tylenol) Take 2 Tablets by mouth every 4 hours as needed for Fever >38C(100.5F) or Pain, Breakthrough. 100 Tablet 0 Aspirin EC 81 MG Oral Tablet Delayed Release Take 1 Tablet by mouth daily. 100 Tablet 3 Brimonidine Tartrate 0.2 % Ophthalmic Solution (Alphagan) Instill 1 Drop into the left eye 3 times a day. 5 mL 0 Lumigan 0.01 % Ophthalmic Solution (Bimatoprost) Instill 1 Drop into both eyes at bedtime. 3 mL 0 Nitroglycerin 0.4 MG Sublingual Tablet Sublingual (Nitrostat) Place 1 Tablet under the tongue every5 minutes as needed for Pain, Chest. 25 Tablet 1 Finasteride 5 MG Oral Tablet (Proscar) Take 1 Tablet (5 mg) by mouth in the morning. 90 Tablet 3 B-12 1000 MCG Oral Tablet Take 1 tablet by mouth daily 90 Tablet 3 Folic Acid 1 MG Oral Tablet TAKE 1 TABLET BY MOUTH EVERY DAY IN THE MORNING 90 Tablet 1 Atorvastatin Calcium 40 MG Oral Tablet (Lipitor) TAKE 1 TABLET BY MOUTH EVERYDAY AT BEDTIME 90 Tablet 1 Carvedilol 3.125 MG Oral Tablet (Coreg) Take 1 Tablet by mouth 2 times a day with morning and evening meals. 180 Tablet 1 metFORMIN HCl ER 500 MG Oral Tablet Extended Release 24 Hour (Glucophage XR) Take 1 Tablet by mouthin the morning. 90 Tablet 3 traMADol HCl 50 MG Oral Tablet (Ultram) Take 1 Tablet by mouth every 6 hours as needed for Pain, Moderate or Pain, Severe. 60 Tablet 0 Isosorbide Mononitrate ER 30 MG Oral Tablet Extended Release 24 Hour (Imdur) Take 1 Tablet by mouthin the morning. 90 Tablet 1 Potassium Chloride ER 10 MEQ Oral Capsule Extended Release Take 1 Capsule by mouth in the morning. One tablet in the morning. 90 Capsule 1 Ferrous Sulfate 325 (65 Fe) MG Oral Tablet (Feosol) Take 1 Tablet by mouth in the morning and 1 Tablet in the evening. Losartan Potassium 25 MG Oral Tablet (Cozaar) TAKE 1/2 TAB BY MOUTH IN THE MORNING *HOLD IF BLOOD PRESSURE IS LESS THAN 110/70 45 Tablet 2 Dorzolamide HCl-Timolol Mal 22.3-6.8 MG/ML Ophthalmic Solution (Cosopt Ocumeter Plus) INSTILL 1 DROP INTO THE LEFT EYE 3 TIMES DAILY 10 mL 0 Furosemide 20 MG Oral Tablet (Lasix) Take 1 Tablet by mouth in the morning. Sennosides-Docusate Sodium 8.6-50 MG Oral Tablet (Senna S) Take 2 tablets in AM and 1 tablet at bedtime 90 Tablet 0 Mirtazapine 15 MG Oral Tablet (Remeron) Take 1 Tablet by mouth at bedtime. No current facility-administered medications for this visit. ROS: Review of Systems: See HPI for pertinent positives. All other review of systems is negative. PHYSICAL EXAMINATION BP 114/66 | Pulse 64 There is no height or weight on file to calculate BMI. General: no acute distress and stated age Head: normocephalic, no masses, lesions, tenderness or abnormalities Eyes: conjunctiva are pink and non-injected, sclera clear Neck: supple, no adenopathy, no bruits, normal jugular venous pulse, no hepatojugular reflux Chest: normal shape and normal respiratory effort Lungs: clear to auscultation and percussion Cardiac Exam: - regular rate & rhythm, no murmurs gallops or rubs - normal S1, normal S2 Pulses: 2(+) throughout Abdomen: abdomen soft, non-tender, no abnormal masses and no hepatosplenomegaly Musculoskeletal: no gait disturbance, no joint inflammation, no deforming arthritis Extremities: no edema and no cyanosis Neuro: grossly normal exam Laboratory Data Review: No recent data Impression: 1. Coronary artery disease status post coronary artery bypass surgery [place] 2007 2. Chronic diastolic heart failure 3. Chronic atrial fibrillation 4. 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 Hypertension dyslipidemia 6. Chronic anemia Plan: The patient is currently clinically stable. I agree the patient is a risk for additional falls and the risk versus benefit would favor stopping his Eliquis today. He will continue with aspirin 81 mg daily. As mentioned above his pacemaker has about 8 months of battery life remaining. He has a follow-up scheduled for the device clinic in February which he should keep. We will see him on an annual or as-needed basis in the clinic. This chart was completed in part utilizing [employer] Speech Voice Recognition Software. Grammatical errors, random word insertions, prounoun errors, and incomplete sentences are an occasional consequence of this system due to software limitations, ambient noise, and hardware issues. Any formal questions or concerns about the content, text, or information contained within the body of this dictation should be directly addressed to the provider for clarification. I spent a total of 30-39 minutes (exact time 38 mins) on the date of service in preparation, delivery, and documentation of the care provided to Delio Padilla excluding any time spent in the performance of separately billed services. Shorty Rich DO Cardiology, [address] [address] 09/18/2023 documented in this encounter Nursing Notes * Galileo Heredia RN - 09/18/2023 2:24 PM EST Examination Room: room 16 Name: Delio Padilla Date of : (1935). Reason for Visit: for follow up Interim Hospitalization(s): denies Problems/Concerns: denies Chest Pain/SOB:states he gets chest pain at times [facility] Discussed: Not applicable [facility] is a way you can talk to your provider online through e-mail. Would you like to sign up? I can activate it for you? ALREADY ACTIVE Patient was instructed to not get up on the exam table until directed and assisted by their provider; patient is to remain seated in the chair/ wheelchair/ exam table for fall prevention and safety reasons. Patient is aware to have assistance to step down off exam table with personnel. Patient voiced full comprehension of instructions. documented in this encounter Plan of Treatment Upcoming Encounters Date Type Department Care Team (Late st Contact Info) Description 09/26/2023 11:15 AM EST Office Visit Urology, [facility] 132 [facility] [place] [address] Vitaliy Maria MD 27 [facility] [address] [place] [address] 12/17/2023 3:20 PM EST Office Visit Dermatology [address] [place] [address] Keria De Jesus PA-C [address] [place] [address] [place] [address] 03/14/2024 9:00 AM EDT Cardiac Studies Cardiology, [facility] 132 [facility] [place] [address] [place], Pacer Clinic [facility] 132 [facility] [place] [address] 05/02/2024 2:00 PM EDT Nurse Only Ancillary [address] [place] [address] [place], Nurse Annual [address] [place] [address] Health Maintenance Due Date Last Done Comments Hepatitis B (1 of 3 - Risk 3-dose series) 1996 Diabetic Foot Exam 04/22/2022 04/22/2021, 09/23/2019 COVID-19 Vaccine ( season) 2023 04/05/2022, 08/05/2021, 12/12/2020, Additional history exists Albumin/Creatinine Ratio 07/11/2023 07/11/2022, 08/30 HbA1c 07/15/2023 01/12/2023, 09/0 04/2022, 11/22/2021, Additional history exists CKD PHOS USE SMARTSET 64422 01/13/2024 01/12/2023, 0 05/04/2021 Diabetic Eye Exam 03/15/2024 03/15/2023, , 06/20/2022, Additional history exists Depression Screening 04/30/2024 04/30/2023 CKD HGB USE SMARTSET 73407 09/17/202409/17, 09/17/2023, 09/10/2023, Additional history exists DTaP,Tdap,and [...] as of this encounter Visit Diagnoses Diagnosis Chronic atrial fibrillation (HCC)- Primary Atrial fibrillation Cardiac pacemaker in situ documented in this encounter Advance Directives Documents on File Type Date Recorded Patient Core Shaper Sides Expl anation Power of Manufacturing Job Titles 01/13/2019 POWER OF A TTORNEY Healthcare Agents on File Name Relationship Healthcare Agent Relationship Communication Ian Henriquez Other - (no specific identity) Health Care Agent (per Health Care Power of Manufacturing Job Titles document) Care Teams Special Education Tutor Relationship Specialty Start Date End Date Jaelyn Pemberton MD [address] [place] [address] [place] [address] PCP - General Family Medicine 08/20/19 documented as of this encounter"
--- OUTSIDE RECORDS SUMMARY | 2023-09-23 21:00 | External Medical Summary ---
Author Name Unknown Address Unknown Organization [id number] [address] [place] [address] Laboratory Report Ordering Provider Test Date Status KALEY KERNS 09/03/2023 05:30:00 Final Observation Date Value Abnormality Reference (Units ) Status WBC, Total 09/03/2023 05:30:00 7.06 4.00-10.8 0 (K/uL) Final RBC 09/03/2023 05:30:00 2.85 4.50-5.25 (M/uL) Final Hemoglobin 09/03/2023 05:30:00 8.5 Below low normal 14 .0-16.8 (g/dL) Final HCT 09/03/2023 05:30:00 26.9 Below low normal 40. 0-48.4 (%) Final MCV 09/03/2023 05:30:00 94.4 82.0-99.5 (fL) Final MCH 09/03/2023 05:30:00 29.8 27.0-34.0 (pg) Final MCHC 09/03/2023 05:30:00 31.6 32.0-36.0 (g/dL) Final RDW 09/03/2023 05:30:00 16.4 11.5-15.5 (%) Final Platelets 09/03/2023 05:30:00 265 140-400 (K /uL) Final MPV 09/03/2023 05:30:00 9.7 6.6-11.1 ( fL) Final Performing Location [facility] [address] 0 - [address] [place] [address]
--- OUTSIDE RECORDS SUMMARY | 2023-09-23 21:00 | External Medical Summary ---
Author Name Unknown Address Unknown Organization [id number] [address] [facility] [address] Laboratory Report Ordering Provider Test Date Status KALEY KERNS 09/17/2023 05:53:00 Final Observation Date Value Abnormality Reference (Units ) Status SYNC LEUKOCYTES IN BLOOD BY AUTOMATED COUNT 09/17/2023 05:53:00 6.92 4.00-10.80 (K/uL) Final Segs 09/17/2023 05:53:00 58.3 40.0-75.0 (%) Final Lymphs % 09/17/2023 05:53:00 19.8 18.0-42.0 (%) Final Monos 09/17/2023 05:53:00 11.0 1.0-11.0 (%) Final Eosinophils 09/17/2023 05:53:00 10.3 Above high normal 0.0-6.0 (%) Final Basos 09/17/2023 05:53:00 0.6 0.0-2.0 (%) Final Absolute Segs 09/17/2023 05:53:00 4.04 1.80-7.70 (K/uL) Final Lymphs, absolute 09/17/2023 05:53:00 1.37 1.00-4.80 (K/ul) Final Monos, Abs 09/17/2023 05:53:00 0.76 0.00-1.10 (K/uL) Final Eos, Abs 09/17/2023 05:53:00 0.71 Above high normal 0.00-0.70 (K/uL) Final Basos, Abs 09/17/2023 05:53:00 0.04 0.00-0.20 (K/uL) Final Performing Location [facility] [address] - [address] [place] [address]
--- OUTSIDE RECORDS SUMMARY | 2023-09-23 21:00 | External Medical Summary | Summary of Care ---
Author Name Unknown Organization [facility] Address [address] [place] [address] Phone [phone] Care Team Providers Care Roll Skinner Name Role Phone Jaelyn Pemberton MD Primary Care Prov ider Encounter Details Date Type Department Care Team (Late st Contact Info) Description 09/09/2023 Orders Only Lab Mobile Phlebotomy [facility] [address] [place] [address] Angel Coronel MD [address] [place] [address] [place] [address] Anemia* Allergies No known active allergiesdocumented as of this encounter (statuses as of 09/09/2023) Medications Medication Sig Dispensed Refills Start Date [...] the morning. 90 Tablet 3 09/26/2022 Active Apixaban 2.5 MG Oral Tablet (Eliquis)Indications:C oronary artery disease involving [place] coronary artery of [place] heart without angina pectoris Take 1 Tablet by mouth in the morning and 1 Tablet before bedtime. 180 Tablet 1 12/18/2022 Active B-12 1000 MCG Oral Tablet Take [...] (blood pressure) < 140/90,Coronary artery disease involving [place] coronary artery of [place] heart without angina pectoris Take 1 Tablet [...] NYHA class 2 (HCC),Coronary artery disease involving [place] coronary artery of [place] heart without angina pectoris TAKE 1/2 TAB [...] as of this encounter (statuses as of 09/09/2023) Active Problems Problem Noted Date Diagnosed Date [...] stenosis Hyperlipidemia Coronary artery disease invo lving [place] coronary artery of [place] heart without angina pectoris Moderate aortic stenosis by prior echocardiogram documented as of this encounter (statuses as of 09/09/2023) Resolved Problems Problem Noted Date Diagnosed Date [...] as of this encounter (statuses as of 09/09/2023) Immunizations Name Administration Dates Next Due COVID-19 mRNA, LNP-s, No Pre serve, 2-Dose Series (MESoft) 08/05/2021,12/12/2020,11/21/2020 COVID-19, LNP-s, No Preserve , Rashawn-sucrose, [...] Care Team (Late st Contact Info) Description 09/10/2023 8:40 AM EST Laboratory Lab Mobile Phlebotomy [facility] [address] [facility] [place] [address] [place] [address] 09/12/2023 10:30 AM EST Cardiac Studies Cardiology, [facility] [address] [facility] [place] [address] [place] [facility] [facility] [address] [place] [address] 09/18/2023 2:30 PM EST Office Visit Cardiology, [facility] 132 [facility] [place] [address] Shorty Rich, 132 [facility] [place] [address] 09/26/2023 11:15 AM EST Office Visit Urology, [facility] 132 [facility] [place] [address] Vitaliy Maria MD [address] [place] [address] 12/17/2023 3:20 PM EST Office Visit Dermatology [address] [place] [address] Keira De Jesus PA-C [address] [place] [address] [place] [address] 05/02/2024 2:00 PM EDT Nurse Only Ancillary [address] [place] [address] Pa[place] Nurse [address] [place] [address] Scheduled Orders Name Type Priority Associated Diagnoses Orde r Schedule CBC WITH WBC DIFFERENTIAL Lab Routine Anemia Expected: 09/10/2023, Expires: 09/09/2024 Health Maintenance Due Date Last Done Comments Hepatitis B (1 of 3 - Risk 3-dose series) 1996 Diabetic Foot Exam 04/22/2022 04/22/2021, 09/23/2019 Diabetic Eye Exam 06/20/2023 06/20/2022, , 06/14/2021, Additional history exists COVID-19 Vaccine ( season) 2023 04/05/2022, 08/05/2021, 12/12/2020, Additional history exists Albumin/Creatinine Ratio 07/11/2023 07/11/2022, 08/30 HbA1c 07/15/2023 01/12/2023, 09/0 04/2022, 11/22/2021, Additional history exists CKD PHOS USE SMARTSET 54533 01/13/2024 01/12/2023, 0 05/04/2021 Depression Screening 04/30/2024 04/30/2023 CKD HGB USE SMARTSET 41037 09/03/202409/03, 09/03/2023, 08/27/2023, Additional history exists DTaP,Tdap,and Td Vaccines (2 [...] as of this encounter Visit Diagnoses Diagnosis Anemia- Primary Anemia, unspecified documented in this encounter Advance Directives Documents on File Type Date Recorded Patient Girl Friday Expl anation Power of Bus Or Truck Garage Mechanic 01/13/2019 POWER OF A TTORNEY Healthcare Agents on File Name Relationship Healthcare Agent Relationship Communication Ian Henriquez Other - (no specific identity) Health Care Agent (per Health Care Power of Bus Or Truck Garage Mechanic document) Care Teams Roll Skinner Relationship Specialty Start Date End Date Jaelyn Pemberton MD [address] [place] [address] [place] [id number] PCP - General Family Medicine 08/20/19 documented as of this encounter
--- OUTSIDE RECORDS SUMMARY | 2023-09-23 21:00 | External Medical Summary ---
Author Name Unknown Address Unknown Organization [facility] [address] - [address] [place] [address] Laboratory Report Ordering Provider Test Date Status KALEY KERNS 09/17/2023 05:53:00 Final Observation Date Value Abnormality Reference (Units ) Status WBC, Total 09/17/2023 05:53:00 6.92 4.00-10.8 0 (K/uL) Final RBC 09/17/2023 05:53:00 2.90 4.50-5.25 (M/uL) Final Hemoglobin 09/17/2023 05:53:00 8.5 Below low normal 14 .0-16.8 (g/dL) Final HCT 09/17/2023 05:53:00 27.6 Below low normal 40. 0-48.4 (%) Final MCV 09/17/2023 05:53:00 95.2 82.0-99.5 (fL) Final MCH 09/17/2023 05:53:00 29.3 27.0-34.0 (pg) Final MCHC 09/17/2023 05:53:00 30.8 32.0-36.0 (g/dL) Final RDW 09/17/2023 05:53:00 17.1 11.5-15.5 (%) Final Platelets 09/17/2023 05:53:00 299 140-400 (K /uL) Final MPV 09/17/2023 05:53:00 9.6 6.6-11.1 ( fL) Final Performing Location [facility] [address] - [address] [place] [address]
--- OUTSIDE RECORDS SUMMARY | 2023-09-23 21:00 | External Medical Summary | Summary of Care ---
Author Name Unknown Organization [facility] Address [address] [place] [address] Phone [phone] Care Team Providers Care Neurourologist Name Role Phone Jaelyn Pemberton MD Primary Care Prov ider Encounter Details Date Type Department Care Team (Late st Contact Info) Description 09/04/2023 Abstract [facility] [address] [place] [address] Thao Fernandez PA-C [address] [place] [address] Allergies No known active allergiesdocumented as of this encounter (statuses as of 09/04/2023) Medications Medication Sig Dispensed Refills Start Date [...] 09/26/2022 Active Apixaban 2.5 MG Oral Tablet (Eliquis)Indications :Coronary artery disease involving [place] coronary artery of [place] heart without angina pectoris Take 1 Tablet [...] (blood pressure) < 140/90,Coronary artery disease involving [place] coronary artery of [place] heart without angina pectoris Take 1 Tablet [...] NYHA class 2 (HCC),Coronary artery disease involving [place] coronary artery of [place] heart without angina pectoris TAKE 1/2 TAB [...] by mouth at bedtime. 0 09/04/2023 Active Sertraline HCl 25 MG Oral Tablet (Zoloft) Take 2 Tablets by mouth in the morning. 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 artery of [place] heart without angina pectoris Moderate aortic stenosis by prior echocardiogram documented as of this encounter (statuses as of 09/04/2023) Resolved Problems Problem Noted Date Diagnosed Date [...] as of this encounter (statuses as of 09/04/2023) Immunizations Name Administration Dates Next Due COVID-19 [...] Care Team (Late st Contact Info) Description 09/12/2023 10:30 AM EST Cardiac Studies Cardiology, [facility] [address] [place] [address] [facility] [address] [place] [address] 09/18/2023 2:30 PM EST Office Visit Cardiology, [facility] [address] [place] [address] Shorty Rich, 132 [facility] [place] [address] 09/26/2023 11:15 AM EST Office Visit Urology, [facility] 132 [facility] [place] [address] Vitaliy Maria MD 27 [facility] [address] [place] [address] 12/17/2023 3:20 PM EST Office Visit Dermatology [address] [place] [address] Keiar De Jesus PA-C [address] [place] [address] [place] [address] 05/02/2024 2:00 PM EDT Nurse Only Ancillary [address] [place] [address] [place], Nurse Annual Wellness [address] [place] [address] [place] [address] Health Maintenance Due Date Last Done Comments Hepatitis B (1 of 3 - Risk 3-dose series) 1996 Diabetic Foot Exam 04/22/2022 04/22/2021, 09/23/2019 Diabetic Eye Exam 06/20/2023 06/20/2022, , 06/14/2021, Additional history exists COVID-19 Vaccine (24 season) 2023 04/05/2022, 08/05/2021, 12/12/2020, Additional history exists Albumin/Creatinine Ratio 07/11/2023 07/11/2022, 08/30 HbA1c 07/15/2023 01/12/2023, 09/0 04/2022, 11/22/2021, Additional history exists CKD PHOS USE SMARTSET 98261 01/13/2024 01/12/2023, 0 05/04/2021 Depression Screening 04/30/2024 04/30/2023 CKD HGB USE SMARTSET 39917 09/03/202409/03, 09/03/2023, 08/27/2023, Additional history exists DTaP,Tdap,and [...] Not on filedocumented as of this encounter Advance Directives Documents on File Type Date Recorded Patient Weight Checker Expl anation Power of Printer'S Devil 01/13/2019 POWER OF A TTORNEY Healthcare Agents on File Name Relationship Healthcare Agent Relationship Communication Ian Henriquez Other - (no specific identity) Health Care Agent (per Health Care Power of Printer'S Devil document) Care Teams Neurourologist Relationship Specialty Start Date End Date Jaelyn Pemberton MD [address] [place] [address] [place] [address] PCP - General Family Medicine 08/20/19 documented as of this encounter
--- OUTSIDE RECORDS SUMMARY | 2023-09-23 21:00 | External Medical Summary | Continuity Of Care Document ---
Author Name Unknown Address [address] [place] [address] Organization [facility] ( ) Care Team Providers Care Inspector And Unloader Name Role Phone Angel Coronel Primary Care Provider [phone] Problems Code Description Start Date End Date Status R29.6 Repeated falls 05/28/2023 Active S32.402D Unspecified fracture of left acetabulum, subsequent encounter for fracture with routine healing 05/28/2023 Active S32.10XD Unspecified fracture of sacrum, subsequent encounter for fracture with routine healing 05/28/2023 Active G93.41 Metabolic encephalopathy 05/28/2023 Active I48.91 Unspecified atrial fibrillation 05/28/2023 00/0 Active N18.30 Chronic kidney disease, stage 3 unspecified Active D63.1 Anemia in chronic kidney disease 05/28/2023 Active R79.89 Other specified abno rmal findings of blood chemistry 05/28/2023 Active I50.9 Heart failure, unspecified 05/28/202300/000 0 Active Z95.0 Presence of cardiac pacemaker 05/28/2023 Active R42. 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 05/30/2023 00/0 Active R53.1 Weakness 05/30/2023 Active M62.81 Muscle weakness (generalized) 05/30/202300 Active Z74.1 Need for assistance with personal care 05/30/20 23 Active U07.1 COVID-19 06/21/2023 07/01/2023 Completed VITAL SIGNS Date Time Diastolic blood pressure Systolic blood pressure Body height Body weight Temperature SpO2 Blood Sugar Pulse Respirations 012 66784 9 139.00 NI 019 16661 5 139.00 NI 023 21556 2 98.70 Oral 023 25770 9 98.70 Oral 026 96501 8 140.00 NI 030 25618 2 78.00 mm[Hg] - Sitting 112.00 mm[Hg] - Sitting 84.00/ min 031 50907 2 73.00 mm[Hg] - Sitting 144.00 mm[Hg] - Sitting 61.00/ min 102 96751 9 141.00 NI 107 13346 7 133.00 NI 107 07603 9 73.00 mm[Hg] - Sitting 143.00 mm[Hg] - Sitting 97.30 Ear Immunizations Vaccine Date Status COVID-19 11/21/2020 Completed COVID-19 12/12/2020 Completed COVID-19 08/05/2021 Completed COVID-19 04/05/2022 Completed Influenza 09/09/2021 Completed Influenza 07/11/2022 Completed Influenza 08/15/2023 Completed (PCV13)Pneumococcal 08/20/2019 Completed (PPSV23)Pneumococcal 08/23/2020 Completed Shingles 08/08/2020 Completed TDaP 08/23/2020 Completed Shingles 2 04/22/2021 Completed
--- OUTSIDE RECORDS SUMMARY | 2023-09-23 21:00 | External Medical Summary | Continuity Of Care Document ---
Author Name Unknown Address [address] [place] [address] Organization [facility] ( ) Care Team Providers Care Moth Exterminator Name Role Phone Angel Coronel Primary Care Provider [phone] Problems Code Description Start Date End Date [...] chemistry 05/28/2023 Active I50.9 Heart failure, unspecified 05/28/202300000 0 Active Z95.0 Presence of cardiac pacemaker 05/28/2023 Active R42. 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 05/30/2023 00/0 Active R53.1 Weakness 05/30/2023 Active M62.81 Muscle weakness (generalized) 05/30/202300 Active Z74.1 Need for assistance with personal care 05/30/20 Active U07.1 COVID-19 06/21/2023 07/01/2023 Completed VITAL SIGNS Date Time Diastolic blood pressure Systolic blood pressure Body height Body weight Temperature SpO2 Blood Sugar Pulse Respirations 012 40923 9 139.00 NI 019 13899 5 139.00 NI 023 71438 2 98.70 Oral 023 47715 9 98.70 Oral 026 71934 8 140.00 NI 030 94745 2 78.00 mm[Hg] - Sitting 112.00 mm[Hg] - Sitting 84.00/ min 031 84692 2 73.00 mm[Hg] - Sitting 144.00 mm[Hg] - Sitting 61.00/ min 102 50050 9 141.00 NI 107 84560 7 133.00 NI 107 71211 9 73.00 mm[Hg] - Sitting 143.00 mm[Hg] - Sitting 97.30 Ear Immunizations Vaccine Date Status COVID-19 11/21/2020 Completed COVID-19 12/12/2020 Completed COVID-19 08/05/2021 Completed COVID-19 04/05/2022 Completed Influenza 09/09/2021 Completed Influenza 07/11/2022 Completed Influenza 08/15/2023 Completed (PCV13)Pneumococcal 08/20/2019 Completed (PPSV23)Pneumococcal 08/23/2020 Completed Shingles 08/08/2020 Completed TDaP 08/23/2020 Completed Shingles 2 04/22/2021 Completed
--- OUTSIDE RECORDS SUMMARY | 2023-09-23 21:00 | External Medical Summary | Summary of Care ---
Author Name Unknown Organization [facility] Address [address] [place] [address] Phone [phone] Care Team Providers Care Soup Mixer Name Role Phone Jaelyn Pemberton MD Primary Care Prov ider Encounter Details Date Type Department Care Team (Late st Contact Info) Description 09/17/2023 Orders Only Lab Mobile Phlebotomy [facility] [address] [place] [address] Angel Coronel MD [address] [place] [address] [place] [phone] Anemia* Allergies No known active allergiesdocumented as of this encounter (statuses as of 09/17/2023) Medications Medication Sig Dispensed Refills Start Date [...] Oral Tablet (Eliquis)Indications:C oronary artery disease 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[place] heart without angina pectoris Take 1 Tablet [...] (blood pressure) < 140/90,Coronary artery disease 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[place] heart without angina pectoris Take 1 Tablet [...] NYHA class 2 (HCC),Coronary artery disease 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[place] heart without angina pectoris TAKE 1/2 TAB [...] as of this encounter (statuses as of 09/17/2023) Active Problems Problem Noted Date Diagnosed Date [...] stenosis Hyperlipidemia Coronary artery disease invo lving [place] coronary artery of [place] heart without angina pectoris Moderate aortic stenosis by prior echocardiogram documented as of this encounter (statuses as of 09/17/2023) Resolved Problems Problem Noted Date Diagnosed Date [...] as of this encounter (statuses as of 09/17/2023) Immunizations Name Administration Dates Next Due COVID-19 mRNA, LNP-s, No Pre serve, 2-Dose Series (Pocket Concierge) 08/05/2021,12/12/2020,11/21/2020 COVID-19, LNP-s, No Preserve , Rashawn-sucrose, [...] Care Team (Late st Contact Info) Description 09/17/2023 8:00 AM EST Laboratory Lab Mobile Phlebotomy [facility] 100 [address] [facility] [place] [address] [place] [address] Arrived 09/18/2023 2:30 PM EST Office Visit Cardiology, [facility] 132 [facility] [place] [address] Shorty Rich, 132 [facility] [place] [address] 09/26/2023 11:15 AM EST Office Visit Urology, [facility] 132 [facility] [place] [address] Vitaliy Maria MD 27 [facility] [address] [place] [address] 12/17/2023 3:20 PM EST Office Visit Dermatology [address] [place] [address] Keira De Jesus PA-C [address] [place] [address] [place] [address] 03/14/2024 9:00 AM EDT Cardiac Studies Cardiology, [facility] 132 [facility] [place] [address] [facility] 132 [facility] [place] [address] 05/02/2024 2:00 PM EDT Nurse Only Ancillary [address] [place] [address] [place], Nurse [address] [place] [address] Scheduled Orders Name Type Priority Associated Diagnoses Orde r Schedule CBC WITH WBC DIFFERENTIAL Lab Routine Anemia Expected: 09/17/2023, Expires: 09/17/2024 Health Maintenance Due Date Last Done Comments Hepatitis B (1 of 3 - Risk 3-dose series) 1996 Diabetic Foot Exam 04/22/2022 04/22/2021, 09/23/2019 COVID-19 Vaccine ( season) 2023 04/05/2022, 08/05/2021, 12/12/2020, Additional history exists Albumin/Creatinine Ratio 07/11/2023 07/11/2022, 08/30 HbA1c 07/15/2023 01/12/2023, 09/04/2022, 11/22/2021, Additional history exists CKD PHOS USE SMARTSET 67438 01/13/2024 01/12/2023, 0 05/04/2021 Diabetic Eye Exam 03/15/2024 03/15/2023, , 06/20/2022, Additional history exists Depression Screening 04/30/2024 04/30/2023 CKD HGB USE SMARTSET 19333 09/10/202409/10, 09/10/2023, 09/03/2023, Additional history exists DTaP,Tdap,and Td Vaccines (2 [...] Documents on File Type Date Recorded Patient Cellar Packer Expl anation Power of Rent Control Office Manager 01/13/2019 POWER OF A TTORNEY Healthcare Agents on File Name Relationship Healthcare Agent Relationship Communication Ian Henriquez Other - (no specific identity) Health Care Agent (per Health Care Power of Rent Control Office Manager document) Care Teams Soup Mixer Relationship Specialty Start Date End Date Jaelyn Pemberton MD [address] [place] [address] [place] [phone] PCP - General Family Medicine 08/20/19 documented as of this encounter
--- OUTSIDE RECORDS SUMMARY | 2023-09-23 21:00 | External Medical Summary | Summary of Care ---
Author Name Unknown Organization [facility] Address [address] [facility] [address] Phone [phone] Care Team Providers Care Mold Technician Name Role Phone Jaelyn Pemberton MD Primary Care Prov ider Reason for Visit * Reason Onset Date Comments Appointment 06/14/2023 PACER CHECK Encounter Details Date Type Department Care Team (Late st Contact Info) Description 06/14/2023 Telephone [address] [place] [address] Shorty Rich, DO [address] [place] [address] Appointment (PACER CHECK) Allergies No known active allergiesdocumented as of this encounter (statuses as of 08/28/2023) Medications Medication Sig Dispensed Refills Start Date End Date Status Acetaminophen 325 MG Oral Tablet (Tylenol) Take 2 Tablets by mouth every 4 hours as needed for Fever >38C(100.5F) or Pain, Breakthrough . 100 Tablet 0 1 Active Aspirin EC 81 MG Oral Tablet Delayed Release Take 1 Tablet by mouth daily. 100 Tablet 3 2 Active Brimonidine Tartrate 0.2 % Ophthalmic Solution (Alphagan) Instill 1 Drop into the left eye 3 times a day. 5 mL 0 2 Active Lumigan 0.01 % Ophthalmic Solution (Bimatoprost) Instill 1 Drop into both eyes at bedtime. 3 mL 0 2 Active Nitroglycerin 0.4 MG Sublingual Tablet Sublingual (Nitrostat) Place 1 Tablet under the tongue every 5 minutes as needed for Pain, Chest. 25 Tablet 1 2 Active Finasteride 5 MG Oral Tablet (Proscar) Take 1 Tablet (5 mg) by mouth in the morning. 90 Tablet 3 2 Active Apixaban 2.5 MG Oral Tablet (Eliquis)Indication s:Coronary artery disease involving [place] coronary artery of [place] heart without angina pectoris Take 1 Tablet by mouth in the morning and 1 Tablet before bedtime. 180 Tablet 1 3 Active B-12 1000 MCG Oral Tablet Take 1 tablet by mouth daily 90 Tablet 3 3 Active Folic Acid 1 MG Oral TabletIndications:A nemia, unspecified type TAKE 1 TABLET BY MOUTH EVERY DAY IN THE MORNING 90 Tablet 1 3 Active Atorvastatin Calcium 40 MG Oral Tablet (Lipitor)Indication s:Hyperlipidemia, unspecified hyperlipidemia type TAKE 1 TABLET BY MOUTH EVERYDAY AT BEDTIME 90 Tablet 1 3 Active Carvedilol 3.125 MG Oral Tablet (Coreg)Indications: Systolic CHF with reduced left ventricular function, NYHA class 2 (HCC),Hypertension goal BP (blood pressure) < 140/90,Coronary artery disease involving [place] coronary artery of [place] heart without angina pectoris Take 1 Tablet by mouth 2 times a day with morning and evening meals. 180 Tablet 1 3 Active metFORMIN HCl ER 500 MG Oral Tablet Extended Release 24 Hour (Glucophage XR) Take 1 Tablet by mouth in the morning. 90 Tablet 3 3 Active traMADol HCl 50 MG Oral Tablet (Ultram) Take 1 Tablet by mouth every 6 hours as needed for Pain, Moderate or Pain, Severe. 60 Tablet 0 3 Active Isosorbide Mononitrate ER 30 MG Oral Tablet Extended Release 24 Hour (Imdur) Take 1 Tablet by mouth in the morning. 90 Tablet 1 3 Active Potassium Chloride ER 10 MEQ Oral Capsule Extended Release Take 1 Capsule by mouth in the morning. One tablet in the morning. 90 Capsule 1 3 Active Ferrous Sulfate 325 (65 Fe) MG Oral Tablet (Feosol)Indications :Iron deficiency anemia, unspecified iron deficiency anemia type Take 1 Tablet by mouth in the morning and 1 Tablet in the evening. 0 3 Active Dorzolamide HCl-Timolol Mal 22.3-6.8 MG/ML Ophthalmic Solution (Cosopt Ocumeter Plus) Instill 1 Drop into eye 2 times a day. 10 mL 0 2 07/16/20 23 Discontinued Furosemide 40 MG Oral Tablet (Lasix) Take by mouth 1 Tablet in the morning. 90 Tablet 3 2 08/02/20 23 Discontinued(Med ication/Dose Changed) Losartan Potassium 25 MG Oral Tablet (Cozaar)Indications :Hypertension goal BP (blood pressure) < 140/90,Systolic CHF with reduced left ventricular function, NYHA class 2 ([facility]),Coronary artery disease involving [place] coronary artery of [place] heart without angina pectoris TAKE 1/2 TAB BY MOUTH IN THE MORNING *HOLD IF BLOOD PRESSURE IS LESS THAN 110/70 45 Tablet 1 3 06/15/20 23 Discontinued Sertraline HCl 25 MG Oral Tablet (Zoloft) Take 1 Tablet by mouth in the morning. 90 Tablet 1 3 07/27/20 23 Discontinued(Ref ill) Sennosides-Docusate Sodium 8.6-50 MG Oral Tablet (Senna S) Take 1 Tablet by mouth in the morning. 90 Tablet 1 3 08/22/20 23 Discontinued(Ref ill) Vitron-C 65-125 MG Oral Tablet (Iron-Vitamin C 65-125 mg per tab)Indications:Ane debbie, unspecified type Take 1 Tablet by mouth once a day on Sunday, Sunday, and Sunday only. 40 Tablet 3 3 08/22/20 23 Discontinued documented as of this encounter (statuses as of 08/28/2023) Active Problems Problem Noted Date Diagnosed Date Closed fracture of superior ramus of left [...] stenosis Hyperlipidemia Coronary artery disease invo lving [place] coronary artery of [place] heart without angina pectoris Moderate aortic stenosis by prior echocardiogram documented as of this encounter (statuses as of 08/28/2023) Resolved Problems Problem Noted Date Diagnosed Date [...] as of this encounter (statuses as of 08/28/2023) Immunizations Name Administration Dates Next Due COVID-19 mRNA, LNP-s, No Pre serve, 2-Dose Series (Pfizer) 08/05/2021,12/12/2020,11/21/2020 COVID-19, LNP-s, No Preserve , Rashawn-sucrose, Ages 12+ (Pfizer) 04/05/2022 Pneumococcal Conjugate Vacc, 13 Valent (Prevnar) 08/20/2019 Pneumococcal Polysaccharide PPV23 (Pneumovax) 08/23/2020 Season Influenza, Quad, PF, Adjuvanted, 65+ Yrs, IM (FLUAD) 07/10/2020 Seasonal Influenza Virus Vac cine, Unspecified Formulation [...] on file documented as of this encounter Miscellaneous Notes * Telephone Encounter - Tami Hogue RN - 06/18/2023 11:48 AM EDT 06/19/2023 device clinic appointment cancelled due to tech being unavailable. Working with [facility] rep to determine day to come to [facility] to perform device interrogations. Called, left message for transport at [facility] that appointment tomorrow would be cancelled and rescheduled. Attempted to call Ian as below, no answer. Unable to leave a message. * Telephone Encounter - Alonzo Rivas OSA - 06/14/2023 2:48 PM EDT Delio is scheduled for his pacer check here at [place] 06/19. Pt's brother Ian stopped in to let us know, Delio is now in [facility] due to hip injury. Brother Ian would like called to see if Delio stillneeds this appt for the [facility] to bring him down or not. Please call Ian at ph # [phone] to advise. documented in this encounter Plan of Treatment Upcoming Encounters Date Type Department Care Team (Late st Contact Info) Description 09/12/2023 10:30 AM EST Cardiac Studies Cardiology, [facility] [address] [place] [address] [place], Pacer Clinic [facility] [address] [place] [address] 09/18/2023 2:30 PM EST Office Visit Cardiology, [facility] [address] [place] [address] Shorty Rich, DO [address] [place] [address] 09/26/2023 11:15 AM EST Office Visit Urology, [facility] [address] [place] [address] Vitaliy Maria MD [address] [place] [address] [place] [address] 12/17/2023 3:20 PM EST Office Visit Dermatology [address] [place] [address] Keira De Jesus PA-C [address] [place] [address] [place] [address] 05/02/2024 2:00 PM EDT Nurse Only Ancillary [address] [place] [address] [place], Nurse [address] [place] [address] Health Maintenance Due Date Last Done Comments Hepatitis B (1 of 3 - Risk 3-dose series) 1996 Diabetic Foot Exam 04/22/2022 04/22/2021, 09/23/2019 Diabetic Eye Exam 06/20/2023 06/20/2022, , 06/14/2021, Additional history exists COVID-19 Vaccine ( season) 2023 04/05/2022, 08/05/2021, 12/12/2020, Additional history exists Albumin/Creatinine Ratio 07/11/2023 07/11/2022, 08/30 HbA1c 07/15/2023 01/12/2023, 04/2022, 11/22/2021, Additional history exists CKD PHOS USE SMARTSET 84255 01/13/2024 01/12/2023, 0 05/04/2021 Depression Screening 04/30/2024 04/30/2023 CKD HGB USE SMARTSET 69180 08/27/202408/27, 08/27/2023, 08/22/2023, Additional history exists DTaP,Tdap,and Td Vaccines (2 [...] Documents on File Type Date Recorded Patient Hospital Insurance Representative Expl anation Power of Brattice Builder 01/13/2019 POWER OF A TTORNEY Healthcare Agents on File Name Relationship Healthcare Agent Relationship Communication Ian Henriquez Other - (no specific identity) Health Care Agent (per Health Care Power of Brattice Builder document) Care Teams Mold Technician Relationship Specialty Start Date End Date Jaelyn Pemberton MD [address] [place] [address] [place] [address] PCP - General Family Medicine 08/20/19 documented as of this encounter
--- OUTSIDE RECORDS SUMMARY | 2023-09-23 21:00 | External Medical Summary | Summary of Care ---
Author Name Unknown Organization [facility] Address [address] [place] [address] Phone [phone] Care Team Providers Care Bottom Bleacher Name Role Phone Jaelyn Pemberton MD Primary Care Prov ider Encounter Details Date Type Department Care Team (Late st Contact Info) Description 09/03/2023 Orders Only Lab Mobile Phlebotomy [facility] [address] [place] [address] Angel Coronel MD [address] [place] [address] [place] Felder [id number] DM type 2, not at goal (HCC)* Allergies No known active allergiesdocumented as of this encounter (statuses as of 09/03/2023) Medications Medication Sig Dispensed Refills Start Date [...] Oral Tablet (Eliquis)Indications:C oronary artery disease involving pamunkey coronary artery of pamunkey heart without angina pectoris Take 1 Tablet [...] (blood pressure) < 140/90,Coronary artery disease 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 0 08/01/2023 Active Furosemide 20 MG Oral Tablet (Lasix) Take 1 Tablet by mouth in the morning. 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, [address] [place] [address] Arrived 09/12/2023 10:30 AM EST Cardiac Studies Cardiology, [facility] [place] [address] [facility] 132 [facility] [place] [address] 09/18/2023 2:30 PM EST Office Visit Cardiology, [facility] 132 [facility] [place] [address] [address]y [place], 132 [facility] [place] [address] 09/26/2023 11:15 AM EST Office Visit Urology, [facility] 132 [facility] [place] [address] Vitaliy Maria MD 27 [facility] 270 [place] [address] 12/17/2023 3:20 PM EST Office Visit Dermatology [address] [place] [address] Keira De Jesus PA-C [address] [place] [address] [place] Fel[place] [address] 05/02/2024 2:00 PM EDT Nurse Only Ancillary [address] [place] [address] Nurse Paolo [address] [place] [address] Scheduled Orders Name Type Priority Associated Diagnoses Orde r Schedule CBC WITH WBC DIFFERENTIAL Lab Routine DM type 2, not at goal (HCC) Expected: 09/03/2023, Expires: 09/03/2024 Health Maintenance Due Date Last Done Comments Hepatitis B (1 of 3 - Risk 3-dose series) 1996 Diabetic Foot Exam 04/22/2022 04/22/2021, 09/23/2019 Diabetic Eye Exam 06/20/2023 06/20/2022, , 06/14/2021, Additional history exists COVID-19 Vaccine ( season) 2023 04/05/2022, 08/05/2021, 12/12/2020, Additional history exists Albumin/Creatinine Ratio 07/11/2023 07/11/2022, 08/30 HbA1c 07/15/2023 01/12/2023, 0904/2022, 11/22/2021, Additional history exists CKD PHOS USE SMARTSET 93244 01/13/2024 01/12/2023, 0 05/04/2021 Depression Screening 04/30/2024 04/30/2023 CKD HGB USE SMARTSET 72724 08/27/202408/27, 08/27/2023, 08/22/2023, Additional history exists DTaP,Tdap,and [...] as of this encounter Visit Diagnoses Diagnosis DM type 2, not at goal (HCC)- Primary Type II or unspecified type diabetes mellitus without mention of complication, not stated as uncontrolled documented in this encounter Advance Directives Documents on File Type Date Recorded 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
--- OUTSIDE RECORDS SUMMARY | 2023-09-23 21:01 | External Medical Summary ---
Author Name Unknown Address Unknown Organization [id number]:LABORATORY [facility] [address] [place] [id number] Laboratory Report Ordering Provider Test Date Status KALEY KERNS 08/22/2023 05:18:00 Final Observation Date Value Abnormality Reference (Units ) Status HCT 08/22/2023 05:18:00 27.6 Below low normal 40. 0-48.4 (%) Final Performing Location [facility] [address] - [address] [place] [id number]
--- OUTSIDE RECORDS SUMMARY | 2023-09-23 21:01 | External Medical Summary ---
Author Name Unknown Address Unknown Organization [id number] [address] [place] [id number] Laboratory Report Ordering Provider Test Date Status KALEY KERNS 08/27/2023 05:23:00 Final Observation Date Value Abnormality Reference (Units ) Status WBC, Total 08/27/2023 05:23:00 7.40 4.00-10.8 0 (K/uL) Final RBC 08/27/2023 05:23:00 2.78 4.50-5.25 (M/uL) Final Hemoglobin 08/27/2023 05:23:00 8.2 Below low normal 14 .0-16.8 (g/dL) Final HCT 08/27/2023 05:23:00 26.1 Below low normal 40. 0-48.4 (%) Final MCV 08/27/2023 05:23:00 93.9 82.0-99.5 (fL) Final MCH 08/27/2023 05:23:00 29.5 27.0-34.0 (pg) Final MCHC 08/27/2023 05:23:00 31.4 32.0-36.0 (g/dL) Final RDW 08/27/2023 05:23:00 16.0 11.5-15.5 (%) Final Platelets 08/27/2023 05:23:00 253 140-400 (K /uL) Final MPV 08/27/2023 05:23:00 9.9 6.6-11.1 ( fL) Final Performing Location LAB[facility]ATORY [facility] [address] - [address] [place] [id number]
--- OUTSIDE RECORDS SUMMARY | 2023-09-23 21:01 | External Medical Summary | Summary of Care ---
Author Name Unknown Organization [facility] Address [address] [place] [address] Phone [phone] Care Team Providers Care Fast Foods Worker Name Role Phone Jaelyn Pemberton MD Primary Care Prov ider Encounter Details Date Type Department Care Team (Late st Contact Info) Description 08/22/2023 Orders Only Lab [place] [facility] [address] [place] [address] Angel Coronel MD [address] [place] [address] [place] Felder [phone] Anemia* Allergies No known active allergiesdocumented as of this encounter (statuses as of 08/22/2023) Medications Medication Sig Dispensed Refills Start Date [...] Oral Tablet (Eliquis)Indications:C oronary artery disease involving te-moak coronary artery of te-moak heart without angina pectoris Take 1 Tablet by mouth in the morning and 1 Tablet before bedtime. 180 Tablet 1 12/18/2022 Active Sennosides-Docusate Sodium 8.6-50 MG Oral Tablet (Senna S) Take 1 Tablet by mouth in the morning. 90 Tablet 1 01/01/2023 Active B-12 1000 MCG Oral Tablet Take 1 tablet by mouth daily 90 Tablet 3 02/07/2023 Active Vitron-C 65-125 MG Oral Tablet (Iron-Vitamin C 65-125 mg per tab)Indications:Anemia , unspecified type Take 1 Tablet by mouth once a day on Sunday, Sunday, and Sunday only. 40 Tablet 3 02/19/2023 Active Folic Acid 1 MG Oral TabletIndications:Anem [...] (blood pressure) < 140/90,Coronary artery disease involving te-moak coronary artery of te-moak heart without angina pectoris Take 1 Tablet [...] NYHA class 2 (HCC),Coronary artery disease involving te-moak coronary artery of te-moak heart without angina pectoris TAKE 1/2 TAB [...] mouth in the morning. 0 08/02/2023 Active documented as of this encounter (statuses as of 08/22/2023) Active Problems Problem Noted Date Diagnosed Date BPH with obstruction/lower urinary tract symptom s 08/20/2023 Iron deficiency anemia 08/06/2023 DNR (do not resuscitate) 07/26/2023 Closed fracture of superior ramus of left pubis with routine healing 05/30/2023 Closed fracture of left inferior pubic ramus 10/2022 Closed fracture of sacrum with routine healing 0 05/29/2023 Calcification of aortic valve 05/29/2023 Moderate aortic regurgitatio n with left [...] mellitus wit h stage 3b chronic kidney disease 10/10/2021 Overview: Per CKD protocol Chronic kidney disease, stage 3b 10/10/2021 Overview: Per CKD protocol Hiatal hernia [...] stenosis Hyperlipidemia Coronary artery disease invo lving te-moak coronary artery of te-moak heart without angina pectoris Moderate aortic stenosis by prior echocardiogram documented as of this encounter (statuses as of 08/22/2023) Resolved Problems Problem Noted Date Diagnosed Date Resolved Date Type 2 diabetes mellitus wit h stage 3b chronic kidney disease, without long-term current use of insulin 01/12/2023 02/08/2023 Status post left hip replacement 10/10/2021 12/23/2021 Chronic kidney disease, stage 3a 04/12/2021 10/13/2021 [...] as of this encounter (statuses as of 08/22/2023) Immunizations Name Administration Dates Next Due COVID-19 mRNA, LNP-s, No Pre serve, 2-Dose Series ([employer]) 08/05/2021,12/12/2020,11/21/2020 COVID-19, LNP-s, No Preserve , Rashawn-sucrose, [...] Care Team (Late st Contact Info) Description 08/22/2023 8:20 AM EDT Laboratory Lab Mobile Phlebot[facility] [address] [facility], [facility] [address] [place] [address] 08/22/2023 8:30 AM EDT Fpc Visit [address] [place] [address] Angel Coronel MD [address] [place] [address] [place] Fel[place] [address] 09/12/2023 10:30 AM EST Cardiac Studies Cardiology, [facility] 132 [facility] [place] [address] [facility] [address] [facility] [place] [address] 09/18/2023 2:30 PM EST Office Visit Cardiology, [facility] 132 [facility] [place] SHAH [address] Shorty Rich, 132 [facility] [place] Shah [address] 09/26/2023 11:15 AM EST Office Visit Urology, [facility] 132 [facility] [place] [address] Vitaliy Maria MD [address] [facility] 270 [place] [address] 12/17/2023 3:20 PM EST Office Visit Dermatology [address] [place] [address] Keira De Jesus PA-C [address] [place] [address] [place] [address] 05/02/2024 2:00 PM EDT Nurse Only Ancillary [address] [place] [address] [place], Nurse [address] [place] [address] Scheduled Orders Name Type Priority Associated Diagnoses Orde r Schedule BASIC METABOLIC PANEL Lab Routine Anemia Expected: 08/22/2023, Expires: 08/22/2024 HCT Lab Routine Anemia Expected: 08/23/2023, Expires: 08/22/2024 HGB Lab Routine Anemia Expected: 08/23/2023, Expires: 08/22/2024 Health Maintenance Due Date Last Done Comments Hepatitis B (1 of 3 - Risk 3-dose series) 1996 Diabetic Foot Exam 04/22/2022 04/22/2021, 09/23/2019 COVID-19 Vaccine ( season) 2023 04/05/2022, 08/05/2021, 12/12/2020, Additional history exists Influenza Vaccine (FLU shot) (#1) 2023 07/11/2022, 09/09/2021, 07/10/2020, Additional history exists Albumin/Creatinine Ratio 07/11/2023 07/11/2022, 08/30 HbA1c 07/15/2023 01/12/2023, 0904/2022, 11/22/2021, Additional history exists CKD PHOS USE SMARTSET 94543 01/13/2024 01/12/2023, 0 05/04/2021 Depression Screening 04/30/2024 04/30/2023 CKD HGB USE SMARTSET 02865 08/20/202408/20, 08/20/2023, 08/13/2023, Additional history exists DTaP,Tdap,and Td Vaccines (2 - Td or Tdap) 08/23/2030 08/23/2020 Pneumococcal Vaccine: 65+ Years Completed 08/23/2020, 08/20/2019 Zoster Vaccines Completed 04/22/2021, 08/08/2020 GARDASIL-HPV IMMUNIZATION SERIES Aged Out No longer [...] Documents on File Type Date Recorded 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
--- OUTSIDE RECORDS SUMMARY | 2023-09-23 21:01 | External Medical Summary | Summary of Care ---
Author Name Unknown Organization [facility] Address [address] [place] [address] Phone [phone] Care Team Providers Care Fiscal Services Manager Name Role Phone Jaelyn Pemberton MD Primary Care Prov ider Reason for Visit * Reason Onset Date Comments Custodial Visit 08/22/2023 Regulatory Encounter Details Date Type Department Care Team (Latest Contact Info) Description 08/22/2023 8:30 AM EDT [address] [address] Angel Coronel MD [address] [place] [address] [place] [address] Closed nondisplaced fracture of medial wall of left acetabulum with routine healing, subsequent encounter*; Iron deficiency anemia due to chronic blood loss; Closed fracture of left inferior pubic ramus with routine healing, subsequent encounter; Type 2 diabetes mellitus with stage 3a chronic kidney disease, without long-term current use of insulin ([facility]); BPH with obstruction/lower urinary tract symptoms; 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 episode ([facility]); Systolic CHF with reduced left ventricular function, NYHA class 2 ([facility]); Hypertension goal BP (blood pressure) < 140/90; 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 0 3 Active Furosemide 20 MG Oral Tablet (Lasix) Take 1 Tablet by mouth in the morning. 0 3 Active Sennosides-Docusate Sodium 8.6-50 MG Oral Tablet (Senna S) Take 2 tablets in AM and 1 tablet at bedtime 90 Tablet 0 3 Active Sennosides-Docusate Sodium 8.6-50 MG Oral Tablet [...] stenosis Hyperlipidemia Coronary artery disease invo lving cowlitz coronary artery of cowlitz heart without angina pectoris Moderate aortic stenosis [...] money to buy more. Never true 04/30/20 Within the past 12 months, t he [...] as of this encounter Progress Notes * Angel Coronel MD - 08/22/2023 11:53 AM EDT Regulatory Visit TRANSITION EVENT: Type: Regulatory visit Date: August 22 Code Status: No Code Name: Delio Padilla Date of : 1935 This note pertains to care provided at [facility]. Please see facility medical record for original note. This note is not to be edited or addended in [place]. Editing or addending needs to occur in the facilities medical record. S: Delio Padilla seen today as part of a regulatory visit. 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 I25.10 Moderate aortic [...] reduced left ventricular function, NYHA class 2 ([facility]) I50.20 Hiatal hernia K44.9 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 S/p left hip fracture Z87.81 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 episode ([facility]) F32.0 Persistent atrial fibrillation ([facility]) I48.19 Type 2 diabetes mellitus with stage 3a chronic kidney disease ([facility]) E11.22, N18.31 Closed nondisplaced fracture of medial wall of left acetabulum ([facility]) S32.475A Calculus of gallbladder without cholecystitis without obstruction K80.20 Closed fracture of left inferior pubic ramus ([facility]) S32.592A Closed fracture of sacrum [...] obstruction/lower urinary tract symptoms N40.1, N13.8 Past Medical History: Diagnosis Date Aortic stenosis CAD (coronary artery disease) Chest pain DM (diabetes mellitus) ([facility]) DVT prophylaxis 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 LVEF 50 to 55%. LA moderately dilated. Severe calcification aortic valve. Moderate aortic regurgitation. Moderate . Moderate MR. Mild TR. [facility] CABG, ARTERIAL, SINGLE 1999 COLONOSCOPY, DIAGNOSTIC (RECTUM) 09/09/2019 poor prep, repeat / COLONOSCOPY FLEXIBLE PROXIMAL DIAGNOSTIC performed by Filipe Hankins MD [facility] COLONOSCOPY, DIAGNOSTIC (RECTUM) 09/10/2019 normal / COLONOSCOPY FLEXIBLE PROXIMAL DIAGNOSTIC performed by Filipe Hankins MD at ENDOSCOPY [facility] EGD, FLEXIBLE, DIAGNOSTIC 07/21/2021 hiatal hernia / [facility] TOTAL HIP REPLACEMENT & PROSTHESIS Left 10/07/2021 Dr. Davila--left hip fracture Family History Problem Relation Age of Onset Heart Disorder Mother Heart disease Mother Cancer Father prostate Prostate cancer Father Family Status Relation Status Mo Fa Son Alive Son Alive Social History Socioeconomic History Marital status: Single Spouse name: Not on file Number of children: Not on file Years of education: Not on file Highest education level: Not on file Occupational History Not on file Tobacco Use Smoking status: Former Packs/day: 5.00 Years: 3.00 Additional pack years: 0.00 Total pack years: 15.00 Types: Pipe, Cigarettes Quit date: 2018 Years since quittin.8 Smokeless tobacco: Never Tobacco comments: Rarely smokes a pipe, infrequent Vaping Use Vaping Use: Never used Substance and Sexual Activity Alcohol use: Yes Comment: rare Drug use: Never Sexual activity: Not on file Other Topics Concern Not on file Social History Narrative since Oct 11 2018 Social Determinants of Health Financial Resource Strain: Not on file Food Insecurity: No Food Insecurity (04/30/2023) Hunger Vital Sign Worried About Running Out of Food in the Last Year: Never true Ran Out of Food in the Last Year: Never true Transportation Needs: Not on file Physical Activity: Not on file Stress: Not on file Social Connections: Not on file Intimate Partner Violence: Not on file Housing Stability: Not on file Review of patient's allergies indicates: No Known Allergies He is now having acute problem(s). Current problems include difficulty voiding earlier this week. Bladder scan at one point showed 1200 ml of urine. Straight cath ordered but patient did void on own before cath was done. Is on Proscar. Flomax not started due to hypotension and dizziness. Has had ongoing anemia since admission. Required transfusion several weeks ago for hemoglobin of 6.8. is on ferrous sulfate BID and Vitron-D MWF (was on Vitron C on admission and started on ferrous sulfate BID for anemia on 06/07/23). Hematology recommended continuing oral iron, checking CBC weekly,and transfuse if hemoglobin less than 7. Patient has had hemoccult + stool x 3 but no gross bloody stools. He did have EGD in 2020 and colonoscopy in 2018 that were both negative. Family declines aggressive work up at this time. Senna increased 08/20/23 due to constipation/hard stools. Is on iron as above. Scheduled to see dermatology in November 2023 for nonhealing skin lesion of right chin. Is having pain issues. Pain being treated with Tramadol as needed. Is not having behavioral problems. Results for orders placed or performed in visit on 08/22/23 BASIC METABOLIC PANEL Result Value Ref Range BUN 29 (H) 6 - 20 mg/dL Creatinine 1.1 0.6 - 1.2 mg/dL Estimated Glomerular Filtration Rate 64 >=60 mL/min Sodium 136 135 - 146 mmol/L Potassium 4.2 3.5 - 5.1 mmol/L Chloride 102 98 - 107 mmol/L CO2 22 22 - 32 mmol/L Anion Gap 12 7 - 15 mmol/L Glucose 104 70 - 120 mg/dL Calcium 8.1 (L) 8.4 - 10.2 mg/dL HCT Result Value Ref Range HCT 27.6 (L) 40.0 - 48.4 % HGB Result Value Ref Range HGB 8.7 (L) 14.0 - 16.8 g/dL Hemoglobin A1C last 3 results: Lab Results Component Value Date/Time HEMOGLOBIN A1C - [facility] 7.0 (H) 01/12/2023 02:45 PM HEMOGLOBIN A1C - [facility] 6.5 (H) 07/05/2022 11:25 AM HEMOGLOBIN A1C - [facility] 5.9 (H) 11/22/2021 11:14 AM HEMOGLOBIN A1C - [facility] 6.9 (H) 03/31/2020 01:13 PM HEMOGLOBIN A1C - [facility] 6.3 (H) 11/11/2019 02:06 PM HEMOGLOBIN A1C - [facility] 5.7 (H) 08/20/2019 04:24 PM HEMOGLOBIN-OUTSIDE LAB 9.9 (A) 05/22/2023 12:00 AM HEMOGLOBIN-OUTSIDE LAB 11.2 (A) 10/05/2021 12:00 AM HEMOGLOBIN-OUTSIDE LAB 9.7 (A) 03/11/2021 12:00 AM Hemoglobin Results: Lab Results Component Value Date/Time HGB - [facility] 8.7 (L) 08/22/2023 05:18 AM HGB - [facility] 8.9 (L) 08/20/2023 05:04 AM HGB - [facility] 9.8 (L) 08/13/2023 06:15 AM HGB - [facility] 11.6 (L) 05/11/2020 03:12 PM HGB - [facility] 11.4 (L) 03/31/2020 01:13 PM HGB - [facility] 12.8 (L) 08/20/2019 04:24 PM ROS: CONSTITUTIONAL: No change in weight, No fevers, sweats, or chills, and +generalized weakness EYE: No eye pain, redness, discharge and +very poor vision EARS: No ear pain, No drainage, No tinnitus or vertigo, and No recent change in hearing NOSE: No history of frequent colds or sinusitis, No nasal stuffiness, No history of Hay Fever, and No significant epistaxis MOUTH: No bleeding gums, No thrush, or No sore throat PULMONARY: No cough, sputum, or hemoptysis, No wheezing, No shortness of breath, and No recent change in breathing CARDIOVASCULAR: No chest pain, No shortness of breath, No orthopnea, No paroxysmal nocturnal dyspnea, No edema, No palpitations, No syncope, and +CHF and hypotension GASTROINTESTINAL: No abdominal pain, No significant heartburn, No significant change in appetite, No hematemesis, No abdominal bloating or early satiety, and +constipation and heme + stools MALE: +BPH with intermittent retention HEMATOLOGIC: No coagulation disorder, No chills, No weight loss, and +anemia requiring transfusion EXTREMITIES: +left pubic and acetabular fractures SKIN/INTEGUMENTARY: No rash NEUROLOGIC: No headaches and No seizures PSYCHIATRIC: +depression O: I reviewed the most recent facilities vitals. General: alert, no distress, and chronically ill appearing elderly male resting in bed eating breakfast Head: Normocephalic, No masses, lesions, tenderness or abnormalities Neuro: alert & oriented x 3 with fluent speech, no focal motor/sensory deficits Eye Exam: PERRLA, extraocular movements intact, conjunctiva are pink and non- injected, sclera clear Ears: External ears normal Nose: no mucosal erythema, no mucosal edema, no purulent discharge Oropharynx: no exudate, no erythema, lips, buccal mucosa, and tongue normal, and mucous membranes are moist Heart: regular rate & rhythm, no gallops, and 3/6 holosystolic low pitched harsh murmur aortic area Lungs: chest symmetric with normal AP diameter, no chest deformities noted, no chest wall tenderness, lungs clear to auscultation Abdomen: abdomen soft, non-tender, normal bowel sounds, and no masses or organomegaly Extremities: no edema, no clubbing, no cyanosis A: Closed nondisplaced fracture of medial wall of left acetabulum with routine healing, subsequent encounter (Primary)--continue PT/OT. Has some left groin pain lingering. Iron deficiency anemia due to chronic blood loss--continue ferrous sulfate twice daily. Heme occultpositive stools but had completely negative colonoscopy in 2018. Had negative EGD in 2020. Family declines aggressive work up. Saw hematology 08/03/23 and weekly CBC ordered. Closed fracture of left inferior pubic ramus with routine healing, subsequent encounter--as above. Continue PT/OT and Tramadol as needed. Type 2 diabetes mellitus with stage 3a chronic kidney disease, without long-term current use of insulin (HCC)--controlled with metformin 500 mg daily. BPH with obstruction/lower urinary tract symptoms--continue finasteride. Continue bladder scan and straight cath if needed. Consider adding flomax but hesitant due to hypotension. 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)--continue sertraline 50 mg daily Systolic CHF with reduced left ventricular function, NYHA class 2 ([facility])--appears compensated. Continue furosemide 20 mg daily. Hypertension goal BP (blood pressure) < 140/90--BP running low. 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 Continue Eliquis 2.5 mg twice daily P: Medications reviewed. Please refer to MAR in the facility's medical record for the most up-to-date medication list. Continue present medication(s):, Discontinue medication(s): Vitron C (duplicate medication) and continue ferrous sulfate twice daily, and Schedule labs: weekly CBC and transfuse for less than 7. Reviewed [facility] record for: vital signs, weight, bowel, and bladder function, and ADLs. Labs reviewed Continue current treatment plan as ordered. Follow-up with hematology and dermatology as scheduled Continue to follow up as needed and as scheduled [facility] Home Treatment Given: n/a Electronically signed by: Angel Coronel MD I spent a total of 35 minutes coordinating, documenting, and providing care for this patient excluding time spent in the performance of separately billed services or time spent by another provider/QHP. documented in this encounter Plan of Treatment Upcoming Encounters Date Type Department Care Team (Late st Contact Info) Description 09/12/2023 10:30 AM EST Cardiac Studies Cardiology, [facility] [address] [facility] [place] [address] [facility] [address] [place] [address] 09/18/2023 2:30 PM EST Office Visit Cardiology, [facility] [address] [place] [address] Shorty Rich [address] [place] [address] 09/26/2023 11:15 AM EST Office Visit Urology, [facility] [address] [place], [place] [address] Vitaliy Maria MD [address] [facility] [address] [place] [address] 12/17/2023 3:20 PM EST Office Visit Dermatology [address] [place] [address] Keira De Jesus PA-C [address] [place] [address] [place] [address] 05/02/2024 2:00 PM EDT Nurse Only Ancillary [address] [place] [address] Nurse Paolo [address] [place] [address] Health Maintenance Due Date Last Done Comments Hepatitis B (1 of 3 - Risk 3-dose series) 1996 Diabetic Foot Exam 04/22/2022 04/22/2021, 09/23/2019 COVID-19 Vaccine ( season) 2023 04/05/2022, 08/05/2021, 12/12/2020, Additional history exists Albumin/Creatinine Ratio 07/11/2023 07/11/2022, 08/30 HbA1c 07/15/2023 01/12/2023, 04/2022, 11/22/2021, Additional history exists CKD PHOS USE SMARTSET 87785 01/13/2024 01/12/2023, 0 05/04/2021 Depression Screening 04/30/2024 04/30/2023 CKD HGB USE SMARTSET 69644 08/22/202408/22, 08/20/2023, 08/20/2023, Additional history exists DTaP,Tdap,and Td Vaccines (2 [...] as of this encounter Visit Diagnoses Diagnosis Closed nondisplaced fracture of medial wall of left acetabulum with routine healing, subsequent encounter- Primary Iron deficiency anemia due to chronic blood loss Iron deficiency anemia secondary to blood loss (chronic) Closed fracture of left inferior pubic ramus with routine healing, subsequent encounter Type 2 diabetes mellitus with stage 3a chronic kidney disease, without long-term current use of insulin (HCC) BPH with obstruction/lower urinary tract symptoms Hypertrophy of prostate with urinary obstruction and other lower urinary tract symptoms (LUTS) 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) Systolic CHF with reduced left ventricular function, NYHA class 2 (HCC) Unspecified systolic heart failure Hypertension goal BP (blood pressure) < 140/90 Unspecified essential hypertension 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 Moderate aortic stenosis by prior echocardiogram Aortic valve disorders S/P total left hip arthroplasty Persistent atrial fibrillation (HCC) Atrial fibrillation documented in this encounter Advance Directives Documents on File Type Date Recorded Patient Marketing And Public Relations Manager Expl anation Power of Char Filter Operator Helper 01/13/2019 POWER OF A TTORNEY Healthcare Agents on File Name Relationship Healthcare Agent Relationship Communication Ian Henriquez Other - (no specific identity) Health Care Agent (per Health Care Power of Char Filter Operator Helper document) Care Teams Fiscal Services Manager Relationship Specialty Start Date End Date Jaelyn Pemberton MD [address] [place] [address] [place] [id number] PCP - General Family Medicine 08/20/19 documented as of this encounter
--- OUTSIDE RECORDS SUMMARY | 2023-09-23 21:01 | External Medical Summary ---
Author Name Unknown Address Unknown Organization [id number] [address] [place] [address] Laboratory Report Ordering Provider Test Date Status KALEY KERNS 08/22/2023 05:18:00 Final Observation Date Value Abnormality Reference (Units ) Status BUN 08/22/2023 05:18:00 29 Above high normal 6-20 (mg/dL) Final Creatinine 08/22/2023 05:18:00 1.1 0.6-1.2 (mg/dL) Final Glomerular filtration rate/1.73 sq M.predicted [Volume Rate/Area] in Serum, Plasma or Blood by Creatinine-based formula (CKD-EPI) 08/22/2023 05:18:00 64 >=60 (mL/min) Final eGFR is calculated based on the CKD-EPI 2020 equation SODIUM 08/22/2023 05:18:00 136 135-146 (m mol/L) Final Potassium 08/22/2023 05:18:00 4.2 3.5-5.1 (m mol/L) Final Cl 08/22/2023 05:18:00 102 98-107 (mm ol/L) Final CO2 08/22/2023 05:18:00 22 22-32 (mmo l/L) Final Anion gap 08/22/2023 05:18:00 12 7-15 (mmol /L) Final Glucose 08/22/2023 05:18:00 104 70-120 (mg /dL) Final Calcium 08/22/2023 05:18:00 8.1 Below low normal 8.4 -10.2 (mg/dL) Final Performing Location [facility] [address] [place] [address]
--- OUTSIDE RECORDS SUMMARY | 2023-09-23 21:01 | External Medical Summary | Summary of Care ---
Author Name Unknown Organization [facility] Address [address] [place] [address] Phone [phone] Care Team Providers Care Roulette Dealer Name Role Phone Jaelyn Pemberton MD Primary Care Prov ider Reason for Visit * Reason Onset Date Comments Correction Visit 08/21/2023 Encounter Details Date Type Department Care Team (Latest Contact Info) Description 08/21/2023 9:00 AM EDT Correction Visit [facility] [address] [place] [address] Thao Fernandez PA-C [address] [place] [address] Urinary retention*; BPH with obstruction/lower urinary tract symptoms; Type 2 diabetes mellitus with stage 3b chronic kidney disease, without long-term current use of insulin ([facility]); Systolic CHF with reduced left ventricular function, NYHA class 2 ([facility]) Allergies No known active allergiesdocumented as of this encounter (statuses as of 08/21/2023) Medications Medication Sig Dispensed Refills Start Date [...] Oral Tablet (Eliquis)Indications:C oronary artery disease involving ekuk coronary artery of ekuk heart without angina pectoris Take 1 Tablet [...] (blood pressure) < 140/90,Coronary artery disease involving ekuk coronary artery of ekuk heart without angina pectoris Take 1 Tablet [...] NYHA class 2 (HCC),Coronary artery disease involving ekuk coronary artery of ekuk heart without angina pectoris TAKE 1/2 TAB [...] as of this encounter (statuses as of 08/21/2023) Active Problems Problem Noted Date Diagnosed Date [...] hip fracture 10/11/2021 Current mild episode of marioal r depressive disorder without prior episode 10/11/2021 [...] stenosis Hyperlipidemia Coronary artery disease invo lving ekuk coronary artery of ekuk heart without angina pectoris Moderate aortic stenosis by prior echocardiogram documented as of this encounter (statuses as of 08/21/2023) Resolved Problems Problem Noted Date Diagnosed Date [...] as of this encounter (statuses as of 08/21/2023) Immunizations Name Administration Dates Next Due COVID-19 mRNA, LNP-s, No Pre serve, 2-Dose Series ([employer]) 08/05/2021,12/12/2020,11/21/2020 COVID-19, LNP-s, No Preserve , Rashawn-sucrose, [...] as of this encounter Progress Notes * Thao Fernandez PA-C - 08/21/2023 12:09 PM EDT Name: Delio Padilla Date of :1935 TRANSITION EVENT: Type: Non-applicable Date: August 21 Code Status: No Code This note pertains to care provided at [facility]. Please see facility medical record for original note. This note is not to be edited or addended in [employer]. Editing or addending needs to occur in the facilities medical record. Subjective: Delio Padilla is a 88 year old male. Patient being seen for urinary retention recheck Chief Complaint Patient presents with Correction Visit HPI: pt was assessed yesterday for urinary retention with 1200 cc on bladder scan yesterday. He wasalso c/o bladder pain and pressure. Pt was unable to void using urinal or on toliet. No chills or fever. Vital signs stable. He was initially reluctant to have straight cath but finally consented. Urine dip was completely normal with no evidence of UTI. Pt had order for straight cath Q shift prn but he has been voiding on his own since. He states he is feeling much better. No dysuria. Vital signsstable. We are reluctant to add Flomax to his Proscar due to his frequent hypotensive episodes associated with dizziness.at times. Labs pending for tomorrow CBC Results: Results for orders placed or performed in visit on 08/20/23 CBC Result Value Ref Range WBC 6.58 4.00 - 10.80 K/uL RBC 2.98 4.50 - 5.25 M/uL HGB 8.9 (L) 14.0 - 16.8 g/dL HCT 28.2 (L) 40.0 - 48.4 % MCV 94.6 82.0 - 99.5 fL MCH 29.9 27.0 - 34.0 pg MCHC 31.6 32.0 - 36.0 g/dL RDW 15.6 11.5 - 15.5 % PLT 260 140 - 400 K/uL MPV 9.9 6.6 - 11.1 fL Hemoglobin Results: Lab Results Component Value Date/Time HGB - [facility] 8.9 (L) 08/20/2023 05:04 AM HGB - [facility] 9.8 (L) 08/13/2023 06:15 AM HGB - [facility] 10.6 (L) 08/06/2023 04:55 AM HGB - [facility] 11.6 (L) 05/11/2020 03:12 PM HGB - [facility] 11.4 (L) 03/31/2020 01:13 PM HGB - [facility] 12.8 (L) 08/20/2019 04:24 PM Basic Panel Results: Results for orders placed or performed in visit on 08/06/23 BASIC METABOLIC PANEL Result Value Ref Range BUN 22 (H) 6 - 20 mg/dL Creatinine 1.0 0.6 - 1.2 mg/dL Estimated Glomerular Filtration Rate 76 >=60 mL/min Sodium 138 135 - 146 mmol/L Potassium 4.4 3.5 - 5.1 mmol/L Chloride 105 98 - 107 mmol/L CO2 23 22 - 32 mmol/L Anion Gap 10 7 - 15 mmol/L Glucose 108 70 - 120 mg/dL Calcium 8.4 8.4 - 10.2 mg/dL Creatinine Results: Lab Results Component Value Date/Time CREATININE - [facility] 1.0 08/06/2023 04:55 AM CREATININE - [facility] 1.2 07/30/2023 05:07 AM CREATININE - [facility] 1.0 07/27/2023 05:03 AM CREATININE - [facility] 1.3 (H) 08/10/2020 02:34 PM CREATININE - [facility] 1.3 (H) 05/11/2020 03:12 PM CREATININE - [facility] 1.3 (H) 03/31/2020 01:13 PM CREATININE, RANDOM URINE - [facility] 36 07/11/2022 12:33 PM CREATININE, RANDOM URINE - [facility] 109 09/24/2019 02:08 PM CREATININE-[facility] 1.41 (A) 05/22/2023 12:00 AM CREATININE-[facility]IDE LAB 1.66 (A) 10/05/2021 12:00 AM CREATININE-[facility]IDE LAB 1.13 03/11/2021 12:00 AM Potassium Results: Lab Results Component Value Date/Time POTASSIUM - [facility] 4.4 08/06/2023 04:55 AM POTASSIUM - [facility] 5.0 07/30/2023 05:07 AM POTASSIUM - [facility] 4.3 07/27/2023 05:03 AM POTASSIUM - [facility] 5.0 08/10/2020 02:34 PM POTASSIUM - [facility] 3.6 05/11/2020 03:12 PM POTASSIUM - [facility] 4.4 03/31/2020 01:13 PM POTASSIUM-[facility] 4.2 05/22/2023 12:00 AM POTASSIUM-[facility] 5.1 10/05/2021 12:00 AM POTASSIUM-[facility]IDE LAB 3.7 03/11/2021 12:00 AM T Sodium Results: Lab Results Component Value Date/Time SODIUM - [facility] 138 08/06/2023 04:55 AM SODIUM - [facility] 134 (L) 07/30/2023 05:07 AM SODIUM - [facility] 137 07/27/2023 05:03 AM SODIUM - [facility] 141 08/10/2020 02:34 PM SODIUM - [facility] 139 05/11/2020 03:12 PM SODIUM - [facility] 139 03/31/2020 01:13 PM Patient Active Problem List Diagnosis Code Hypertension goal BP (blood pressure) < 140/90 I10 Mitral stenosis I05.0 Hyperlipidemia E78.5 Coronary artery disease involving ekuk coronary artery of ekuk heart without angina pectoris I25.10 Moderate aortic [...] reduced left ventricular function, NYHA class 2 ([facility]) I50.20 Hiatal hernia K44.9 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 S/p left hip fracture Z87.81 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 episode ([facility]) F32.0 Persistent atrial fibrillation ([facility]) I48.19 Type 2 diabetes mellitus with stage 3b chronic kidney disease ([facility]) E11.22, N18.32 Chronic kidney disease, stage 3b (HCC) N18.32 Closed nondisplaced fracture of medial wall of left acetabulum ([facility]) S32.475A Calculus of gallbladder without cholecystitis without obstruction K80.20 Closed fracture of left inferior pubic ramus ([facility]) S32.592A Closed fracture of sacrum with routine healing S32.10XD Calcification of aortic valve I35.9 Moderate aortic regurgitation with left ventricular dilation [...] artery disease) Chest pain DM (diabetes mellitus) ([facility]) DVT prophylaxis 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 LVEF 50 to 55%. LA moderately dilated. Severe calcification aortic valve. Moderate aortic regurgitation. Moderate . Moderate MR. Mild TR. [facility] CABG, ARTERIAL, SINGLE 1999 COLONOSCOPY, DIAGNOSTIC (RECTUM) 09/09/2019 poor prep, repeat / COLONOSCOPY FLEXIBLE PROXIMAL DIAGNOSTIC performed by Filipe Hankins MD [facility] COLONOSCOPY, DIAGNOSTIC (RECTUM) 09/10/2019 normal / COLONOSCOPY FLEXIBLE PROXIMAL DIAGNOSTIC performed by Filipe Hankins MD at ENDOSCOPY [facility] EGD, FLEXIBLE, DIAGNOSTIC 07/21/2021 hiatal hernia / [facility] TOTAL HIP REPLACEMENT & PROSTHESIS Left [...] years: 15.00 Types: Pipe, Cigarettes Quit date: 2019 Years since quittin.8 Smokeless tobacco: Never Tobacco [...] of patient's allergies indicates: No Known Allergies I have reviewed medications and allergies. Please refer to MAR in the facility's medical record forthe most up-to-date medication list as this cannot be edited in [employer]. Review of Systems: Constitutional ROS: No change in weight, less weakness, less fatigue and No fevers, sweats, or chills Nose ROS: No nasal stuffiness and No significant epistaxis Mouth/Throat ROS: No thrush or No sore throat Neck ROS: No lumps or masses, No swollen glands, No recent swelling in thyroid area and No significant pain in neck Pulmonary ROS: No cough, sputum, or hemoptysis, No wheezing, No shortness of breath and No recent change in breathing Cardiovascular ROS: No chest pain, No shortness of breath, No edema, No palpitations and No syncope Gastrointestinal ROS: No abdominal pain, No change in bowel habits, No significant change in appetite, No nausea, vomiting, diarrhea, or constipation and No dysphagia : see HPI Skin/Integumentary ROS: No rash and No itching Neurologic ROS: No headaches and No seizures Psychiatric ROS: + depression, No anxiety and No psychosis OBJECTIVE: PHYSICALEXAM: I reviewed the most recent facilities vitals. General: alert, no distress, well nourished and well developed Eye Exam: Conjunctiva are pink and non-injected, sclera clear Nose: no mucosal erythema, no mucosal edema, no purulent discharge Oropharynx: no exudate, no erythema, lips, buccal mucosa, and tongue normal and mucous membranes are moist Neck: supple, no adenopathy, non-tender, neck veins flat, trachea midline Heart: regular rate & rhythm, no murmurs and no gallops Lungs: normal respiratory rate and rhythm, no chest wall tenderness, lungs clear to auscultation Abdomen: abdomen soft, non-tender, normal bowel sounds and no masses or organomegaly. No blader distension today Extremities: no joint deformities, effusion, or inflammation, no edema, no clubbing, no cyanosis Skin: skin color, texture, turgor are normal, no rashes or significant lesions ASSESSMENT: Urinary retention (Primary) Bladder US pending which was scheduled yesterday Reviewed Urine dip. No UTI Pt is now voiding on his own BPH with obstruction/lower urinary tract symptoms Continue Proscar 5mg daily Will follow closely Type 2 diabetes mellitus with stage 3b chronic kidney disease, without long-term current use of insulin (HCC) Stable glucoses and renal function Systolic CHF with reduced left ventricular function, NYHA class 2 (HCC) Stable no active CHF Continue Losartan 12.5mg daily and Lasix 20mg daily PLAN: Reviewed CBC, BMP, Lytes and Continue present medication(s):as ordered. Mcfp Home Treatment Given: awating US of bladder. Labs pending for tomorrow Electronically signed by: Thao Fernandez PA-C Over 35 minutes were spent in this visit more than half the time was spent counselling or coordinating care. documented in this encounter Plan of Treatment Upcoming Encounters Date Type Department Care Team (Late st Contact Info) Description 08/22/2023 8:30 AM EDT Correction Visit [address] [place] [address] Angel Coronel MD [address] [place] [address] [place] [address] 09/12/2023 10:30 AM EST Cardiac Studies Cardiology, [facility] [address] [facility] 132 [facility] [place] [address] 09/18/2023 2:30 PM EST Office Visit Cardiology, [facility] 132 [place] [address] Shorty Rich, 132 [facility] [place] [address] 09/26/2023 11:15 AM EST Office Visit Urology, [facility] 132 [facility] [place] [address] Vitaliy Maria MD 27 [facility] 270 [place] [address] 12/17/2023 3:20 PM EST Office Visit Dermatology [address] [place] [address] Keira De Jesus PA-C [address] [place] [address] [place] [address] 05/02/2024 2:00 PM EDT Nurse Only Ancillary [address] [place] [address] Paolo Nurse Annual [address] [place] [address] Health Maintenance Due Date Last Done Comments Hepatitis B (1 of 3 - Risk 3-dose series) 1996 Diabetic Foot Exam 04/22/2022 04/22/2021, 09/23/2019 COVID-19 Vaccine ( season) 2023 04/05/2022, 08/05/2021, 12/12/2020, Additional history exists Influenza Vaccine (FLU shot) (#1) 2023 07/11/2022, 09/09/2021, 07/10/2020, Additional history exists Albumin/Creatinine Ratio 07/11/2023 07/11/2022, 08/30 HbA1c 07/15/2023 01/12/2023, 0904/2022, 11/22/2021, Additional history exists CKD PHOS USE SMARTSET 03353 01/13/2024 01/12/2023, 0 05/04/2021 Depression Screening 04/30/2024 04/30/2023 CKD HGB USE SMARTSET 82510 08/20/202408/20, 08/20/2023, 08/13/2023, Additional history exists DTaP,Tdap,and [...] as of this encounter Visit Diagnoses Diagnosis Urinary retention- Primary Retention of urine, unspecified BPH with obstruction/lower urinary tract symptoms Hypertrophy of prostate with urinary obstruction and other lower urinary tract symptoms (LUTS) Type 2 diabetes mellitus with stage 3b chronic kidney disease, without long-term current use of insulin ([facility]) Systolic CHF with reduced left ventricular function, NYHA class 2 (HCC) Unspecified systolic heart failure documented in this encounter Advance Directives Documents on File Type Date Recorded Patient House Mover Expl anation Power of Speech Language Pathologist 01/13/2019 POWER OF A TTORNEY Healthcare Agents on File Name Relationship Healthcare Agent Relationship Communication Ian Henriquez Other - (no specific identity) Health Care Agent (per Health Care Power of Speech Language Pathologist document) Care Teams Roulette Dealer Relationship Specialty Start Date End Date Jaelyn Pemberton MD [address] [place] [address] [place] [phone] PCP - General Family Medicine 08/20/19 documented as of this encounter
--- OUTSIDE RECORDS SUMMARY | 2023-09-23 21:01 | External Medical Summary | Summary of Care ---
Author Name Unknown Organization [facility] Address [address] [place] [address] Phone [phone] Care Team Providers Care Encapsulator Name Role Phone Jaelyn Pemberton MD Primary Care Prov ider Reason for Visit * Reason Onset Date Comments Senior Living Visit 08/24/2023 Encounter Details Date Type Department Care Team (Latest Contact Info) Description 08/24/2023 7:00 AM EDT Senior Living Visit [facility] [address] [place] [address] Thao Fernandez PA-C 100 [place] [address] BPH with obstruction/lower urinary tract symptoms*; Persistent atrial fibrillation (HCC); Coronary artery disease involving [place] coronary artery of [place] heart without angina pectoris Allergies No known active allergiesdocumented as of this encounter (statuses as of 08/24/2023) Medications Medication Sig Dispensed Refills Start Date [...] Oral Tablet (Eliquis)Indications:C oronary artery disease involving [place] coronary artery of [place] heart without angina pectoris Take 1 Tablet [...] (blood pressure) < 140/90,Coronary artery disease involving [place] coronary artery of [place] heart without angina pectoris Take 1 Tablet [...] NYHA class 2 (HCC),Coronary artery disease involving [place] coronary artery of [place] heart without angina pectoris TAKE 1/2 TAB [...] as of this encounter (statuses as of 08/24/2023) Active Problems Problem Noted Date Diagnosed Date [...] stenosis Hyperlipidemia Coronary artery disease invo lving [place] coronary artery of [place] heart without angina pectoris Moderate aortic stenosis by prior echocardiogram documented as of this encounter (statuses as of 08/24/2023) Resolved Problems Problem Noted Date Diagnosed Date [...] as of this encounter (statuses as of 08/24/2023) Immunizations Name Administration Dates Next Due COVID-19 mRNA, LNP-s, No Pre serve, 2-Dose Series ([employer]) 08/05/2021,12/12/2020,11/21/2020 COVID-19, LNP-s, No Preserve , Rashawn-sucrose, [...] 09/12/2023 10:30 AM EST Cardiac Studies Cardiology, [facility] [place] [address] [facility] 132 [facility] [place] [address] 09/18/2023 2:30 PM EST Office Visit Cardiology, [facility] 132 [facility] [place] [address] Shorty Rich, 132 [facility] [place] [address] 09/26/2023 11:15 AM EST Office Visit Urology, [facility] 132 [facility] [place] [address] Vitaliy Maria MD [address] [place] [address] 12/17/2023 3:20 PM EST Office Visit Dermatology [address] [place] [address] Keira De Jesus PA-C [address] [place] [address] [place] [address] 05/02/2024 2:00 PM EDT Nurse Only Ancillary [address] [place] [address] Paolo Nurse Annual [address] [place] [address] Health Maintenance Due Date Last Done Comments Hepatitis B (1 of 3 - Risk 3-dose series) 1996 Diabetic Foot Exam 04/22/2022 04/22/2021, 09/23/2019 COVID-19 Vaccine ( season) 2023 04/05/2022, 08/05/2021, 12/12/2020, Additional history exists Albumin/Creatinine Ratio 07/11/2023 07/11/2022, 08/30 HbA1c 07/15/2023 01/12/2023, 09/0 04/2022, 11/22/2021, Additional history exists CKD PHOS USE SMARTSET 32851 01/13/2024 01/12/2023, 0 05/04/2021 Depression Screening 04/30/2024 04/30/2023 CKD HGB USE SMARTSET 81527 08/22/202408/22, 08/20/2023, 08/20/2023, Additional history exists DTaP,Tdap,and [...] as of this encounter Visit Diagnoses Diagnosis BPH with obstruction/lower urinary tract symptoms- Primary Hypertrophy of prostate with urinary obstruction and other lower urinary tract symptoms (LUTS) Persistent atrial fibrillation (HCC) Atrial fibrillation Coronary artery disease involving [place] coronary artery of [place] heart without angina pectoris documented in this encounter Advance Directives Documents on File Type Date Recorded Patient Clin Application Specialist Expl anation Power of Rural Health Consultant 01/13/2019 POWER OF A TTORNEY Healthcare Agents on File Name Relationship Healthcare Agent Relationship Communication Ian Henriquez Other - (no specific identity) Health Care Agent (per Health Care Power of Rural Health Consultant document) Care Teams Encapsulator Relationship Specialty Start Date End Date Jaelyn Pemberton MD [address] [place] [address] [place] [phone] PCP - General Family Medicine 08/20/19 documented as of this encounter
--- OUTSIDE RECORDS SUMMARY | 2023-09-23 21:01 | External Medical Summary ---
Author Name Unknown Address Unknown Organization [facility] [address] [place] [address] Laboratory Report Ordering Provider Test Date Status KALEY KERNS 08/22/2023 05:18:00 Final Observation Date Value Abnormality Reference (Units ) Status Hemoglobin 08/22/2023 05:18:00 8.7 Below low normal 14 .0-16.8 (g/dL) Final Performing Location [facility] [place] [address]
--- OUTSIDE RECORDS SUMMARY | 2023-09-23 21:01 | External Medical Summary | Summary of Care ---
Author Name Unknown Organization [facility] Address [address] [place] [address] Phone [phone] Care Team Providers Care Copper Etcher Name Role Phone Jaelyn Pemberton MD Primary Care Prov ider Encounter Details Date Type Department Care Team (Late st Contact Info) Description 08/26/2023 Orders Only Lab Mobile [facility]bot[facility] [address] [place] [address] Angel Coronel MD [address] [place] [address] [place] [address] Anemia* Allergies No known active allergiesdocumented as of this encounter (statuses as of 08/26/2023) Medications Medication Sig Dispensed Refills Start Date [...] Oral Tablet (Eliquis)Indications:C oronary artery disease involving ely shoshone coronary artery of ely shoshone heart without angina pectoris Take 1 Tablet [...] (blood pressure) < 140/90,Coronary artery disease involving ely shosh[place] coronary artery of ely shoshone heart without angina pectoris Take 1 Tablet [...] NYHA class 2 (HCC),Coronary artery disease involving ely shoshone coronary artery of ely shoshone heart without angina pectoris TAKE 1/2 TAB [...] as of this encounter (statuses as of 08/26/2023) Active Problems Problem Noted Date Diagnosed Date [...] stenosis Hyperlipidemia Coronary artery disease invo lving ely shosh[place] coronary artery of ely shoshone heart without angina pectoris Moderate aortic stenosis by prior echocardiogram documented as of this encounter (statuses as of 08/26/2023) Resolved Problems Problem Noted Date Diagnosed Date [...] as of this encounter (statuses as of 08/26/2023) Immunizations Name Administration Dates Next Due COVID-19 mRNA, LNP-s, No Pre serve, 2-Dose Series ([employer]) 08/05/2021,12/12/2020,11/21/2020 COVID-19, LNP-s, No Preserve , Rashawn-sucrose, [...] Care Team (Late st Contact Info) Description 08/27/2023 10:20 AM EDT Laboratory Lab Mobile Phlebotomy [facility] [address] [facility] [place] [address] [facility], [address] [place] [address] 09/12/2023 10:30 AM EST Cardiac Studies Cardiology, [facility] [address] [facility] [place] [address] [facility] [address] [place] [address] 09/18/2023 2:30 PM EST Office Visit Cardiology, [facility] 132 [facility] [place] [address] Shorty Rich, 132 [facility] [place] [address] 09/26/2023 11:15 AM EST Office Visit Urology, [facility] 132 [facility] [place] [address] Vitaliy Maria MD [address] [facility] 270 [place] [address] 12/17/2023 3:20 PM EST Office Visit Dermatology [address] [place] [address] Keira De Jesus PA-C [address] [place] [address] [place] [address] 05/02/2024 2:00 PM EDT Nurse Only Ancillary [address] [place] [address] Paolo Nurse [address] [place] [address] Scheduled Orders Name Type Priority Associated Diagnoses Orde r Schedule CBC WITH WBC DIFFERENTIAL Lab Routine Anemia Expected: 08/27/2023, Expires: 08/26/2024 Health Maintenance Due Date Last Done Comments Hepatitis B (1 of 3 - Risk 3-dose series) 1996 Diabetic Foot Exam 04/22/2022 04/22/2021, 09/23/2019 COVID-19 Vaccine ( season) 2023 04/05/2022, 08/05/2021, 12/12/2020, Additional history exists Albumin/Creatinine Ratio 07/11/2023 07/11/2022, 08/30 HbA1c 07/15/2023 01/12/2023, 04/2022, 11/22/2021, Additional history exists CKD PHOS USE SMARTSET 42560 01/13/2024 01/12/2023, 0 05/04/2021 Depression Screening 04/30/2024 04/30/2023 CKD HGB USE SMARTSET 90998 08/22/202408/22, 08/20/2023, 08/20/2023, Additional history exists DTaP,Tdap,and [...] Documents on File Type Date Recorded 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
--- OUTSIDE RECORDS SUMMARY | 2023-09-23 21:02 | External Medical Summary | Summary of Care ---
Author Name Unknown Organization [facility] Address [address] [place] [address] Phone [phone] Care Team Providers Care Fur Coat Sewer Name Role Phone Jaelyn Pemberton MD Primary Care Prov ider Reason for Visit * Reason Onset Date Comments Shelter Visit 08/06/2023 Encounter Details Date Type Department Care Team Description 08/03/2023 Shelter Visit [facility] [address] [place] [address] Thao Fernandez PA-C [address] [place] [address] Dark urine*; Chronic kidney disease, stage 3b (HCC); Adjustment disorder with depressed mood Allergies No known active allergiesdocumented as of this encounter (statuses as of 08/06/2023) Medications Medication Sig Dispensed Refills Start Date [...] Oral Tablet (Eliquis)Indications:C oronary artery disease involving [place] coronary artery of [place] heart without angina pectoris Take 1 Tablet [...] (blood pressure) < 140/90,Coronary artery disease involving [place] coronary artery of [place] heart without angina pectoris Take 1 Tablet [...] reduced left ventricular function, NYHA class 2 ([facility]),Coronary artery disease involving [place] coronary artery of [place] heart without angina pectoris TAKE 1/2 TAB [...] as of this encounter (statuses as of 08/06/2023) Active Problems Problem Noted Date Iron deficiency anemia 08/06/2023 DNR (do not resuscitate) 07/26/2023 Closed fracture of superior ramus of lef t pubis with routine healing 05/30/2023 Closed fracture of left inferior pubic r amus 05/29/2023 Closed fracture of sacrum with routine h ealing 05/29/2023 Calcification of aortic valve 05/29/2023 Moderate aortic regurgitatio n with left ventricular dilation by prior echocardiogram 05/29/2023 Moderate mitral regurgitation by prior e chocardiogram 05/29/2023 Mild tricuspid regurgitation by prior ec hocardiogram 05/29/2023 Closed nondisplaced fracture of medial w all of left acetabulum 05/28/2023 Calculus of gallbladder without cholecys titis without obstruction 05/28/2023 S/P total left hip arthroplasty 10/11/20 21 S/p left hip fracture 10/11/2021 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 episode 10/11/2021 Persistent atrial fibrillation 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 10/10/2021 Overview: Per CKD protocol Chronic kidney disease, stage 3b 021 Overview: Per CKD protocol Hiatal hernia 09/09/2021 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, NYHA class 2 01/06/2020 Dizziness 09/23/2019 Balance disorder 09/23/2019 B12 deficiency 09/23/2019 Hypertension goal BP (blood pressure) < 140/90 08/20/2019 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 08/20/2019 Blurry vision, left eye 08/20/2019 Cardiac pacemaker in situ 08/20/2019 Falls frequently 08/20/2019 Lightheaded 08/20/2019 Headache, unspecified headache type 07/30 History of brain tumor 08/20/2019 Mitral stenosis Hyperlipidemia Coronary artery disease invo lving [place] coronary artery of [place] heart without angina pectoris Moderate aortic stenosis by prior echoca rdiogram documented as of this encounter (statuses as of 08/06/2023) Resolved Problems Problem Noted Date Resolved Date Type 2 diabetes mellitus wit h stage 3b chronic kidney disease, without long-term current use of insulin 01/12/202301/27 Status post left hip replacement 10/10/2021 12/23/2021 Chronic kidney disease, stage 3a 04/12/2021 10/13/2021 Overview: Per CKD protocol Type 2 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 03/08/2021 10/13/2021 Overview: Per CKD protocol Diabetes mellitus with stage 3 chronic kidney di sease 06/07/2020 03/10/2021 Overview: Per CKD protocol Type 2 diabetes mellitus wit hout complication, without long-term current use of insulin 10/11/2021 Chest pain 11/22/2021 documented as of this encounter (statuses as of 08/06/2023) Immunizations Name Administration Dates Next Due COVID-19 mRNA, LNP-s, No Pre serve, 2-Dose Series ([employer]) 08/05/2021,12/12/2020,11/21/2020 COVID-19, LNP-s, No Preserve , Rashawn-sucrose, [...] = 0.6 oz pur e alcohol) rare Alcohol Habits Answer Date Recorded How often do you have a drink containing alcohol ? Monthly or less 08/20/2019 How many drinks containing a lcohol do you have on a typical day when you are drinking? 1 or 2 08/20/2019 How often do you have six or more drinks on one occasion? Never 08/20/2019 Food Insecurity Answer Date Recorded Within the past 12 months, y ou worried that your food would run out before you got money to buy more. Never true 04/30/2023 Within the past 12 months, t he food you bought just didn't last and you didn't have money to get more. Never true 04/30/2023 Sex Assigned at Date Recorded Male 04/26/2021 2:45 PM E DT Job Start Date Occupation Industry Not on file Not on file Not on file documented as of this encounter Plan of Treatment Upcoming Encounters Date Type Specialty Care Team Description 09/18/2023 Office Visit Cardiology Shorty Rich, DO [address] [place] [address] 09/26/2023 Office Visit Urology Vitaliy Maria MD [address] [place] [address] [place] [address] 12/17/2023 Office Visit Dermatology Keira De Jesus PA-C [address] [place] [address] [place] [address] 05/02/2024 Nurse Only Ancillary Movalley, Nurse Annual Wellness [address] [place] [address] [place] [address] Health Maintenance Due Date Last Done Comments Diabetic Foot Exam 04/22/2022 04/22/2021, 09/23/2019 COVID-19 Vaccine ( season) 2023 04/05/2022, 08/05/2021, 12/12/2020, Additional history exists Influenza Vaccine (FLU shot) (#1) 2023 07/11/2022, 09/09/2021, 07/10/2020, Additional history exists Albumin/Creatinine Ratio 07/11/2023 07/11/2022, 08/30 HbA1c 07/15/2023 01/12/2023, 09/0 04/2022, 11/22/2021, Additional history exists CKD PHOS USE SMARTSET 44519 01/13/2024 01/12/2023, 0 05/04/2021 Depression Screening 04/30/2024 04/30/2023 CKD HGB USE SMARTSET 14988 08/06/202408/06, 08/06/2023, 08/03/2023, Additional history exists DTaP,Tdap,and Td Vaccines (2 - Td or Tdap) 08/23/2030 08/23/2020 Pneumococcal Vaccine: 65+ Years Completed 08/23/2020, 08/20/2019 Zoster Vaccines Completed 04/22/2021, 08/08/2020 GARDASIL-HPV IMMUNIZATION SERIES Aged Out No longer eligible based on patient's age to complete this topic Hepatitis B Aged Out No longer eligi ble based on patient's age to complete this topic MENINGOCOCCAL (MENACTRA/MENVEO) Aged Out No longer eligible based on patient's age to complete this topic documented as of this encounter Medical Devices Not on filedocumented as of this encounter Visit Diagnoses Diagnosis Dark urine- Primary Other nonspecific finding on examination of urine Chronic kidney disease, stage 3b (HCC) Adjustment disorder with depressed mood documented in this encounter Advance Directives Documents on File Type Date Recorded Patient Terminal Supervisor Expl anation Power of Gas Station Clerk 01/13/2019 POWER OF A TTORNEY Healthcare Agents on File Name Relationship Healthcare Agent Relationship Communication Ian Henriquez Other - (no specific identity) Health Care Agent (per Health Care Power of Gas Station Clerk document) Care Teams Fur Coat Sewer Relationship Specialty Start Date End Date Jaelyn Pemberton MD [address] [place] [address] [place] [phone] PCP - General Family Medicine 08/20/19 documented as of this encounter
--- OUTSIDE RECORDS SUMMARY | 2023-09-23 21:02 | External Medical Summary | Summary of Care ---
Author Name Unknown Organization [facility] Address [address] [place] [address] Phone [phone] Care Team Providers Care Director Of Regulatory Affairs Name Role Phone Jaelyn Pemberton MD Primary Care Prov ider Reason for Visit * Reason Comments Outpatient Testing Encounter Details Date Type Department Care Team Description 08/07/2023 Laboratory Laboratory [address] [place] [phone] , Specimen Drop Off [address] [place] [phone] Anemia Allergies No known active allergiesdocumented as of this encounter (statuses as of 08/07/2023) Medications Medication Sig Dispensed Refills Start Date [...] Oral Tablet (Eliquis)Indications:C oronary artery disease involving [place] coronary artery of [place] heart without angina pectoris Take 1 Tablet [...] (blood pressure) < 140/90,Coronary artery disease involving [place] coronary artery of [place] heart without angina pectoris Take 1 Tablet [...] reduced left ventricular function, NYHA class 2 ([facility]),Coronary artery disease involving [place] coronary artery of [place] heart without angina pectoris TAKE 1/2 TAB [...] as of this encounter (statuses as of 08/07/2023) Active Problems Problem Noted Date Iron deficiency [...] stenosis Hyperlipidemia Coronary artery disease invo lving [place] coronary artery of [place] heart without angina pectoris Moderate aortic stenosis by prior echoca rdiogram documented as of this encounter (statuses as of 08/07/2023) Resolved Problems Problem Noted Date Resolved Date [...] as of this encounter (statuses as of 08/07/2023) Immunizations Name Administration Dates Next Due COVID-19 mRNA, LNP-s, No Pre serve, 2-Dose Series ([employer]) 08/05/2021,12/12/2020,11/21/2020 COVID-19, LNP-s, No Preserve , Rashawn-sucrose, [...] Rich, DO [address] [place] [address] 09/26/2023 Office Visit Urology Vitaliy Maria MD [address] [place] [address] [place] [address] 12/17/2023 Office Visit Dermatology Keira De Jesus PA-C [address] [place] [address] [place] [address] 05/02/2024 Nurse Only Ancillary [place]oval[place], Nurse Annual Wellness [address] [place] [address] [place] [phone] Pending Results Name Type Priority Associated Diagnoses Date /Time FECAL OCCULT BLOOD, EIA Lab Routine Anemia 08/07/2023 1:54 PM EDT Health Maintenance Due Date Last Done Comments Diabetic Foot Exam 04/22/2022 04/22/2021, 09/23/2019 COVID-19 Vaccine ( season) 2023 04/05/2022, 08/05/2021, 12/12/2020, Additional history exists Influenza Vaccine (FLU shot) (#1) 2023 07/11/2022, 09/09/2021, 07/10/2020, Additional history exists Albumin/Creatinine Ratio 07/11/2023 07/11/2022, 08/30 HbA1c 07/15/2023 01/12/2023, 0904/2022, 11/22/2021, Additional history exists CKD PHOS USE SMARTSET 13595 01/13/2024 01/12/2023, 0 05/04/2021 Depression Screening 04/30/2024 04/30/2023 CKD HGB USE SMARTSET 59967 08/06/202408/06, 08/06/2023, 08/03/2023, Additional history exists DTaP,Tdap,and [...] as of this encounter Visit Diagnoses Diagnosis Anemia Anemia, unspecified documented in this encounter Advance Directives Documents on File Type Date Recorded Patient Kiln Repairer Expl anation Power of Detasseling Crew Supervisor 01/13/2019 POWER OF A TTORNEY Healthcare Agents on File Name Relationship Healthcare Agent Relationship Communication Ian Henriquez Other - (no specific identity) Health Care Agent (per Health Care Power of Detasseling Crew Supervisor document) Care Teams Director Of Regulatory Affairs Relationship Specialty Start Date End Date Jaelyn Pemberton MD [address] [place] [address] [place] [phone] PCP - General Family Medicine 08/20/19 documented as of this encounter
--- OUTSIDE RECORDS SUMMARY | 2023-09-23 21:02 | External Medical Summary | Summary of Care ---
Author Name Unknown Organization [facility] Address [address] [place] [address] Phone [phone] Care Team Providers Care Event Marketing Coordinator Name Role Phone Jaelyn Pemberton MD Primary Care Prov ider Reason for Visit * Reason Onset Date Comments Appointment 08/02/2023 Encounter Details Date Type Department Care Team Description 08/02/2023 Telephone Cardiology, [facility] [address] [place] [address] [facility] [address] [place] [address] Appointment Allergies No known active allergiesdocumented as of this encounter (statuses as of 08/14/2023) Medications Medication Sig Dispensed Refills Start Date [...] Oral Tablet (Eliquis)Indications:C oronary artery disease involving [place] coronary artery of [place] heart without angina pectoris Take 1 Tablet [...] (blood pressure) < 140/90,Coronary artery disease involving [place] coronary artery of [place] heart without angina pectoris Take 1 Tablet [...] NYHA class 2 (HCC),Coronary artery disease involving [place] coronary artery of [place] heart without angina pectoris TAKE 1/2 TAB [...] as of this encounter (statuses as of 08/14/2023) Active Problems Problem Noted Date Iron deficiency [...] stenosis Hyperlipidemia Coronary artery disease invo lving [place] coronary artery of [place] heart without angina pectoris Moderate aortic stenosis by prior echoca rdiogram documented as of this encounter (statuses as of 08/14/2023) Resolved Problems Problem Noted Date Resolved Date Type 2 diabetes mellitus wit h stage 3b chronic kidney disease, without long-term current use of insulin 01/12/2023 04/12/2022 Status post left hip replacement 10/10/2021 12/23/2021 [...] as of this encounter (statuses as of 08/14/2023) Immunizations Name Administration Dates Next Due COVID-19 mRNA, LNP-s, No Pre serve, 2-Dose Series ([employer]) 08/05/2021,12/12/2020,11/21/2020 COVID-19, LNP-s, No Preserve , Rashawn-sucrose, [...] encounter Miscellaneous Notes * Telephone Encounter - LYNN Bryan - 08/10/2023 10:07 AM EDT Have not heard any follow up to this and did not see pacer check scheduled. I called [facility], left VM for Maritza to return my call so we can get Pt scheduled. * Telephone Encounter - Tami Hogue RN - 08/02/2023 2:09 PM EDT Called, left message for [facility]ila Avendano transport to return call. Patient due for device interrogation. [facility] rep to be present in clinic 09/12/2023. Upon return call, please see if able to bring patient to [facility] clinic on 09/12/23 at 1030AM. documented in this encounter Plan of Treatment Upcoming Encounters Date Type Specialty Care Team Description 09/12/2023 Cardiac Studies Cardiology [place] [address] [place] [address] 09/18/2023 Office Visit Cardiology Shorty Rich DO [address] [place] [address] 09/26/2023 Office Visit Urology Vitaliy Maria MD 27 [facility] [address] [place] [address] 12/17/2023 Office Visit Dermatology Keira De Jesus PA-C [address] [place] [address] [place] [address] 05/02/2024 Nurse Only Ancillary [place] Nurse Annual [facility] [address] [place] [address] [place] [phone] Health Maintenance Due Date Last Done Comments Diabetic Foot Exam 04/22/2022 04/22/2021, 09/23/2019 COVID-19 Vaccine (24 season) 2023 04/05/2022, 08/05/2021, 12/12/2020, Additional history exists Influenza Vaccine (FLU shot) (#1) 2023 07/11/2022, 09/09/2021, 07/10/2020, Additional history exists Albumin/Creatinine Ratio 07/11/2023 07/11/2022, 08/30 HbA1c 07/15/2023 01/12/2023, 09/0 04/2022, 11/22/2021, Additional history exists CKD PHOS USE SMARTSET 96942 01/13/2024 01/12/2023, 0 05/04/2021 Depression Screening 04/30/2024 04/30/2023 CKD HGB USE SMARTSET 05995 08/13/202408/13, 08/13/2023, 08/06/2023, Additional history exists DTaP,Tdap,and Td Vaccines (2 [...] Documents on File Type Date Recorded Patient Commercial Counsel Expl anation Power of Folder Hand 01/13/2019 POWER OF A TTORNEY Healthcare Agents on File Name Relationship Healthcare Agent Relationship Communication Ian Henriquez Other - (no specific identity) Health Care Agent (per Health Care Power of Folder Hand document) Care Teams Event Marketing Coordinator Relationship Specialty Start Date End Date Jaelyn Pemberton MD [address] [place] [address] [place] [phone] PCP - General Family Medicine 08/20/19 documented as of this encounter
--- OUTSIDE RECORDS SUMMARY | 2023-09-23 21:02 | External Medical Summary | Summary of Care ---
Author Name Unknown Organization [facility] Address [address] [place] [address] Phone [phone] Care Team Providers Care Advertising Writer Name Role Phone Jaelyn Pemberton MD Primary Care Prov ider Encounter Details Date Type Department Care Team (Late st Contact Info) Description 08/20/2023 Orders Only Lab [place] [facility] [address] [place] [address] Angel Coronel MD [address] [place] [address] [place] [id number] DM type 2, not at goal (HCC)*; HTN, goal below 140/90; Anemia Allergies No known active allergiesdocumented as of this encounter (statuses as of 08/20/2023) Medications Medication Sig Dispensed Refills Start Date [...] Oral Tablet (Eliquis)Indications:C oronary artery disease involving [place] coronary artery of [place] heart without angina pectoris Take 1 [...] (blood pressure) < 140/90,Coronary artery disease involving [place] coronary artery of [place] heart without angina pectoris Take 1 [...] reduced left ventricular function, NYHA class 2 ([facility]),Coronary artery disease involving [place] coronary artery of [place] heart without angina pectoris TAKE 1/2 [...] as of this encounter (statuses as of 08/20/2023) Active Problems Problem Noted Date Diagnosed Date Iron deficiency anemia 08/06/2023 DNR (do [...] stenosis Hyperlipidemia Coronary artery disease invo lving [place] coronary artery of [place] heart without angina pectoris Moderate aortic stenosis by prior echocardiogram documented as of this encounter (statuses as of 08/20/2023) Resolved Problems Problem Noted Date Diagnosed Date [...] as of this encounter (statuses as of 08/20/2023) Immunizations Name Administration Dates Next Due COVID-19 mRNA, LNP-s, No Pre serve, 2-Dose Series ([employer]) 08/05/2021,12/12/2020,11/21/2020 COVID-19, LNP-s, No Preserve , Rashawn-sucrose, [...] = 0.6 oz pur e alcohol) rare PHQ-2 Answer Date Recorded PHQ Adult Total [...] Care Team (Late st Contact Info) Description 08/20/2023 8:00 AM EDT Laboratory Lab [place] [address] [place] [address] [facility], [address] [place] [address] Arrived 09/12/2023 10:30 AM EST Cardiac Studies Cardiology, [facility] [address] [facility] [place] [address] [facility] [place] [address] 09/18/2023 2:30 PM EST Office Visit Cardiology, [facility] 132 [facility] [place] [address] Shorty Rich, 132 [facility] [place] [address] 09/26/2023 11:15 AM EST Office Visit Urology, [facility] 132 [facility] [place] [address] Vitaliy Maria MD [address] [facility] [address] [place] [address] 12/17/2023 3:20 PM EST Office Visit Dermatology [address] [place] [address] Keira De Jesus PA-C [address] [place] [address] [place] [address] 05/02/2024 2:00 PM EDT Nurse Only Ancillary [address] [place] [address] [place] Nurse [address] [place] [address] Scheduled Orders Name Type Priority Associated Diagnoses Orde r Schedule CBC WITH WBC DIFFERENTIAL Lab Routine DM type 2, not at goal (HCC) HTN, goal below 140/90 Anemia Expected: 08/20/2023, Expires: 08/20/2024 Health Maintenance Due Date Last Done Comments Hepatitis B (1 of 3 - Risk 3-dose series) 1996 Diabetic Foot Exam 04/22/2022 04/22/2021, 09/23/2019 COVID-19 Vaccine ( season) 2023 04/05/2022, 08/05/2021, 12/12/2020, Additional history exists Influenza Vaccine (FLU shot) (#1) 2023 07/11/2022, 09/09/2021, 07/10/2020, Additional history exists Albumin/Creatinine Ratio 07/11/2023 07/11/2022, 08/30 HbA1c 07/15/2023 01/12/2023, 04/2022, 11/22/2021, Additional history exists CKD PHOS USE SMARTSET 71412 01/13/2024 01/12/2023, 0 05/04/2021 Depression Screening 04/30/2024 04/30/2023 CKD HGB USE SMARTSET 37268 08/13/202408/13, 08/13/2023, 08/06/2023, Additional history exists DTaP,Tdap,and [...] mention of complication, not stated as uncontrolled HTN, goal below 140/90 Unspecified essential hypertension Anemia Anemia, unspecified documented in this encounter Advance Directives Documents on File Type Date Recorded Patient Center Rep Expl anation Power of Rn Practitioner 01/13/2019 POWER OF A TTORNEY Healthcare Agents on File Name Relationship Healthcare Agent Relationship Communication Ian Henriquez Other - (no specific identity) Health Care Agent (per Health Care Power of Rn Practitioner document) Care Teams Advertising Writer Relationship Specialty Start Date End Date Jaelyn Pemberton MD [address] [place] [address] [place] [phone] PCP - General Family Medicine 08/20/19 documented as of this encounter
--- OUTSIDE RECORDS SUMMARY | 2023-09-23 21:02 | External Medical Summary ---
Author Name Unknown Address Unknown Organization [id number] [address] [place] [address] Laboratory Report Ordering Provider Test Date Status KALEY KERNS 08/20/2023 05:04:00 Final Observation Date Value Abnormality Reference (Units ) Status WBC, Total 08/20/2023 05:04:00 6.58 4.00-10.8 0 (K/uL) Final RBC 08/20/2023 05:04:00 2.98 4.50-5.25 (M/uL) Final Hemoglobin 08/20/2023 05:04:00 8.9 Below low normal 14 .0-16.8 (g/dL) Final HCT 08/20/2023 05:04:00 28.2 Below low normal 40. 0-48.4 (%) Final MCV 08/20/2023 05:04:00 94.6 82.0-99.5 (fL) Final MCH 08/20/2023 05:04:00 29.9 27.0-34.0 (pg) Final MCHC 08/20/2023 05:04:00 31.6 32.0-36.0 (g/dL) Final RDW 08/20/2023 05:04:00 15.6 11.5-15.5 (%) Final Platelets 08/20/2023 05:04:00 260 140-400 (K /uL) Final MPV 08/20/2023 05:04:00 9.9 6.6-11.1 ( fL) Final Performing Location [facility] 0 - [address] [place] [address]
--- OUTSIDE RECORDS SUMMARY | 2023-09-23 21:02 | External Medical Summary ---
Author Name Unknown Address Unknown Organization [id number] [address] [place] [id number] Laboratory Report Ordering Provider Test Date Status KALEY KERNS 08/20/2023 05:04:00 Final Observation Date Value Abnormality Reference (Units ) Status SYNC LEUKOCYTES IN BLOOD BY AUTOMATED COUNT 08/20/2023 05:04:00 6.58 4.00-10.80 (K/uL) Final Segs 08/20/2023 05:04:00 57.5 40.0-75.0 (%) Final Lymphs % 08/20/2023 05:04:00 24.5 18.0-42.0 (%) Final Monos 08/20/2023 05:04:00 10.2 1.0-11.0 (%) Final Eosinophils 08/20/2023 05:04:00 7.0 Above high normal 0.0-6.0 (%) Final Basos 08/20/2023 05:04:00 0.8 0.0-2.0 (%) Final Absolute Segs 08/20/2023 05:04:00 3.79 1.80-7.70 (K/uL) Final Lymphs, absolute 08/20/2023 05:04:00 1.61 1.00-4.80 (K/ul) Final Monos, Abs 08/20/2023 05:04:00 0.67 0.00-1.10 (K/uL) Final Eos, Abs 08/20/2023 05:04:00 0.46 0.00-0.70 (K/uL) Final Basos, Abs 08/20/2023 05:04:00 0.05 0.00-0.20 (K/uL) Final Performing Location [facility] - [address] [place] [id number]
--- OUTSIDE RECORDS SUMMARY | 2023-09-23 21:02 | External Medical Summary ---
Author Name Unknown Address Unknown Organization [id number]:[facility] [place] [address] [place] [address] Laboratory Report Ordering Provider Test Date Status KALEY KERNS 08/07/2023 13:54:24 Final Observation Date Value Abnormality Reference (Units ) Status Occult Blood (EIA) 08/07/2023 13:54:24 Positive Abnormal N egative Final Performing Location [facility] [place] [address] [place] [address]
--- OUTSIDE RECORDS SUMMARY | 2023-09-23 21:02 | External Medical Summary | Summary of Care ---
Author Name Unknown Organization [facility] Address [address] [place] [address] Phone [phone] Care Team Providers Care Printed Circuit Board Reworker Name Role Phone Jaelyn Pemberton MD Primary Care Prov ider Reason for Visit * Reason Onset Date Comments Complicated Acute Visit 08/20/2023 Encounter Details Date Type Department Care Team (Latest Contact Info) Description 08/20/2023 10:30 AM EDT Custodial Visit [facility] [address] [place] [address] Thao Fernandez PA-C [address] [place] [address] Urinary retention*; BPH with obstruction/lower urinary tract symptoms; Iron deficiency anemia, unspecified iron deficiency anemia type; Chronic kidney disease, stage 3b (HCC) Allergies No known active allergiesdocumented as [...] Oral Tablet (Eliquis)Indications:C oronary artery disease involving [place] coronary artery of [place] heart without angina pectoris Take 1 Tablet [...] (blood pressure) < 140/90,Coronary artery disease involving [place] coronary artery of [place] heart without angina pectoris Take 1 Tablet [...] NYHA class 2 (HCC),Coronary artery disease involving [place] coronary artery of [place] heart without angina pectoris TAKE 1/2 TAB [...] stenosis Hyperlipidemia Coronary artery disease invo lving [place] coronary artery of [place] heart without angina pectoris Moderate aortic stenosis [...] Progress Notes * Thao Fernandez PA-C - 08/20/2023 11:47 AM EDT Name: Delio Padilla Date of :1935 TRANSITION EVENT: Type: Complicated acute visit Date: August 20 Code Status: No Code This note pertains to care provided at [facility]. Please see facility medical record for original note. This note is not to be edited or addended in [employer]. Editing or addending needs to occur in the facilities medical record. Subjective: Delio Padilla is a 88 year old male. Patient being seen for urinary retention Chief Complaint Patient presents with Complicated Acute Visit HPI: I was asked to assess pt for bladder pressure and inability to void on his own since last evening. Pt was noted to have a wet brief late last night. Pt states he feels pressure in his bladder area. Some abdominal bloating and nausea. Vital signs stable. No chills or fever. Pt does have BPH andis currently on Proscar 5mg daily. Pt's BPs do run on the low side frequently. Pt has ongoing iron def anemia which is causing fatigue, lethargy. He is under care of hematology and is being observed at this time and currently on iron orally. FOBT positive. This was discussed with pt's POA and no aggressive GI workup was decided by POA. CBC Results: Results for orders placed or [...] AM POTASSIUM-OUTSIDE LAB 3.7 03/11/2021 12:00 AM Sodium Results: Lab Results Component Value Date/Time [...] I05.0 Hyperlipidemia E78.5 Coronary artery disease involving [place] coronary artery of [place] heart without angina pectoris I25.10 Moderate aortic [...] reduced left ventricular function, NYHA class 2 ([facility]) I50.20 Hiatal hernia K44.9 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 S/p left hip fracture Z87.81 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 episode ([facility]) F32.0 Persistent atrial fibrillation ([facility]) I48.19 Type 2 diabetes mellitus with stage 3b chronic kidney disease ([facility]) E11.22, N18.32 Chronic kidney disease, stage 3b ([facility]) N18.32 Closed nondisplaced fracture of medial wall of left acetabulum ([facility]) S32.475A Calculus of gallbladder without cholecystitis without obstruction K80.20 Closed fracture of left inferior pubic ramus ([facility]) S32.592A Closed fracture of sacrum [...] artery disease) Chest pain DM (diabetes mellitus) (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) 01/06/2020 Past Surgical History: Procedure Laterality Date ADULT ECHOCARDIOGRAM 05/25/2023 moderate LVH, LV systolic function normal. LVEF 50 to 55%. LA moderately dilated. Severe calcification aortic valve. Moderate aortic regurgitation. Moderate . Moderate MR. Mild [facility]. [facility] CABG, ARTERIAL, SINGLE 1999 COLONOSCOPY, DIAGNOSTIC (RECTUM) 09/09/2019 poor prep, repeat / COLONOSCOPY FLEXIBLE PROXIMAL DIAGNOSTIC performed by Filipe Hankins MD [facility] COLONOSCOPY, DIAGNOSTIC (RECTUM) 09/10/2019 normal / COLONOSCOPY FLEXIBLE PROXIMAL DIAGNOSTIC performed by Filipe Hankins MD at ENDOSCOPY [facility] EGD, FLEXIBLE, DIAGNOSTIC 07/21/2021 hiatal hernia / [facility] TOTAL HIP REPLACEMENT & PROSTHESIS Left [...] list as this cannot be edited in [employer]. Review of Systems: Constitutional ROS: No change in weight, unchanged weakness, No change in fatigue and No fevers, sweats, or chills [...] vomiting, diarrhea, or constipation and No dysphagia Skin/Integumentary ROS: No rash and No itching Neurologic ROS: No headaches and No seizures Psychiatric ROS: + depression, No anxiety and No psychosis Sleep: No sleep disorders OBJECTIVE: PHYSICALEXAM: I reviewed the most recent facilities vitals. General: alert, mild distress, frail, looks somewhat fatigued Eye Exam: Conjunctiva are pink and non-injected, sclera clear Nose: no mucosal erythema, no mucosal edema, no purulent discharge Oropharynx: no exudate, no erythema, lips, buccal mucosa, and tongue normal and mucous membranes are moist Neck: supple, no adenopathy, non-tender, neck veins flat, trachea midline Lymph: no palpable lymphadenopathy Heart: irreg irreg rhythm, no murmurs and no gallops Lungs: normal respiratory rate and rhythm, no chest wall tenderness, lungs clear to auscultation Abdomen: abdomen soft, non-tender, normal bowel sounds and no masses or organomegaly. Bladder fullness palpable Extremitiesno edema, no clubbing, no cyanosis Neuro Exam: alert with fluent speech, no focal motor/sensory deficits Skin: skin color, pale, texture, turgor are normal, no rashes or significant lesions ASSESSMENT: Urinary retention (Primary) Will obtain bladder scan now Straight cath prn if pt doesn't void over last shift Will obtain urine dip and C&S if dip is positive BPH with obstruction/lower urinary tract symptoms Continue Proscar 5mg daily Concern regarding starting Flomax with pt's low BP readings Iron deficiency anemia, unspecified iron deficiency anemia type Continue Ferrous Sulfate BID and Vitron C daily Will recehck H/H Chronic kidney disease, stage 3b (HCC) Recheck BMP PLAN: Reviewed CBC, BMP, Lytes and Continue present medication(s):as ordered. [facility] Given: H/H and BMP next lab draw Electronically signed by: Thao Fernandez PA-C Over 45 minutes were spent in this visit more than half the time was spent counselling or coordinating care. documented in this encounter Plan of Treatment Upcoming Encounters Date Type Department Care Team (Late st Contact Info) Description 09/12/2023 10:30 AM EST Cardiac Studies Cardiology, [facility] [address] [facility] [place] [address] [place], [facility] [address] [facility] [place] [address] 09/18/2023 2:30 PM EST Office Visit Cardiology, [facility] [place] [address] Shorty Rich, [address] [facility] [place] [address] 09/26/2023 11:15 AM EST Office Visit Urology, [facility] [address] [place] [address] Vitaliy Maria MD [address] [facility] [address] [place] [address] 12/17/2023 3:20 PM EST Office Visit Dermatology [address] [place] [address] Keira De Jesus PA-C [address] [place] [address] [place] [address] 05/02/2024 2:00 PM EDT Nurse Only Ancillary [address] [place] [address] [place], Nurse Annual [address] [place] [address] Health Maintenance Due Date Last Done Comments Hepatitis B (1 of 3 - Risk 3-dose series) 1996 Diabetic Foot Exam 04/22/2022 04/22/2021, 09/23/2019 COVID-19 Vaccine ( season) 2023 04/05/2022, 08/05/2021, 12/12/2020, Additional history exists Influenza Vaccine (FLU shot) (#1) 2023 07/11/2022, 09/09/2021, 07/10/2020, Additional history exists Albumin/Creatinine Ratio 07/11/2023 07/11/2022, 08/30 HbA1c 07/15/2023 01/12/2023, 04/2022, 11/22/2021, Additional history exists CKD PHOS USE SMARTSET 72827 01/13/2024 01/12/2023, 0 05/04/2021 Depression Screening 04/30/2024 04/30/2023 CKD HGB USE SMARTSET 78702 08/20/202408/20, 08/20/2023, 08/13/2023, Additional history exists DTaP,Tdap,and [...] lower urinary tract symptoms (LUTS) Iron deficiency anemia, unspecified iron deficiency anemia type Chronic kidney disease, stage 3b (HCC) documented in this encounter Advance Directives Documents on File Type Date Recorded Patient University Relations Recruiter Expl anation Power of Rickshaw Driver 01/13/2019 POWER OF A TTORNEY Healthcare Agents on File Name Relationship Healthcare Agent Relationship Communication Ian Henriquez Other - (no specific identity) Health Care Agent (per Health Care Power of Rickshaw Driver document) Care Teams Printed Circuit Board Reworker Relationship Specialty Start Date End Date Jaelyn Pemberton MD [address] [place] [address] [place] [address] PCP - General Family Medicine 08/20/19 documented as of this encounter
--- OUTSIDE RECORDS SUMMARY | 2023-09-23 21:02 | External Medical Summary | Summary of Care ---
Author Name Unknown Organization [facility] Address [address] [place] [address] Phone [phone] Care Team Providers Care Screen Machine Operator Name Role Phone Jaelyn Pemberton MD Primary Care Prov ider Reason for Visit * Reason Onset Date Comments Snf Visit 08/08/2023 Encounter Details Date Type Department Care Team Description 08/08/2023 Snf Visit [facility] [address] [place] [address] Thao Fernandez PA-C [address] [place] [address] Hematest positive stools*; Iron deficiency anemia, unspecified iron deficiency anemia type; History of blood transfusion; On continuous oral anticoagulation; Persistent atrial fibrillation (HCC); 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); Slow transit constipation Allergies No known active allergiesdocumented as of this encounter (statuses as of 08/08/2023) Medications Medication Sig Dispensed Refills Start Date [...] Oral Tablet (Eliquis)Indications:C oronary artery disease involving [place] coronary artery of [place] heart without angina pectoris Take 1 Tablet [...] (blood pressure) < 140/90,Coronary artery disease involving [place] coronary artery of [place] heart without angina pectoris Take 1 Tablet [...] NYHA class 2 (HCC),Coronary artery disease involving [place] coronary artery of [place] heart without angina pectoris TAKE 1/2 TAB [...] as of this encounter (statuses as of 08/08/2023) Active Problems Problem Noted Date Iron deficiency [...] stenosis Hyperlipidemia Coronary artery disease invo lving [place] coronary artery of [place] heart without angina pectoris Moderate aortic stenosis by prior echoca rdiogram documented as of this encounter (statuses as of 08/08/2023) Resolved Problems Problem Noted Date Resolved Date Type 2 diabetes mellitus wit h stage 3b chronic kidney disease, without long-term current use of insulin 01/12/2023 0412/2022 Status post left hip replacement 10/10/2021 12/23/2021 [...] as of this encounter (statuses as of 08/08/2023) Immunizations Name Administration Dates Next Due COVID-19 [...] Progress Notes * Thao Fernandez PA-C - 08/08/2023 1:17 PM EDT Name: Delio Padilla Date of :1935 TRANSITION EVENT: Type: Non-applicable Date: August 08 Code Status: No Code This note pertains to care provided at [facility]. Please see facility medical record for original note. This note is not to be edited or addended in [employer]. Editing or addending needs to occur in the facilities medical record. Subjective: Delio Padilla is a 88 year old male. Patient being seen for anemia and heme positive stools Chief Complaint Patient presents with Snf Visit HPI: Pt is being followed closely for significant drop in hemoglobin to 6.8 requriing two units of PRBCs several weeks ago. Pt has been established with hematology and at recent visit for his ongoingiron deficiency anemia, it was recommended to continue iron orally and IV iron will be considered in the future. Pt's most recent hemoglobin is remaining at 10 range. Vital signs stable. Seems a bit more alert and energetic but still spends much of his time in bed. In May pt had hemoccult testing times 3 and were negative. This past week these were repeated and positive times 3. FOBT confirmed positive. Pt denies any abdominal pains, nausea vomiting. Pt is currently on Eliquis 2.5mg BID and ASA EC 81mg daily for AF. Pt did have UGIE and colonsocopy done 2018 and negative. Pt is currently on Zoloft for depression. He has made negative statements in the past recently. Hisappetite is fair to poor at times. Poor motivation. No sucidal thoughts or plans. Pt recently had his Zoloft increased to 50mg daily from 25mg daily. It is too soon to notice any improvement in mood.Psych consult is pending. Pt has been noted to have constipation. Passage of hard stools. No cramping or pain. No bright red bleeding. Pt is currently on Senna S one daily. Is on iron supplementation. CBC Results: Results for orders placed or performed in visit on 08/06/23 CBC Result Value Ref Range WBC 7.88 4.00 - 10.80 K/uL RBC 3.53 4.50 - 5.25 M/uL HGB 10.6 (L) 14.0 - 16.8 g/dL HCT 34.4 (L) 40.0 - 48.4 % MCV 97.5 82.0 - 99.5 fL MCH 30.0 27.0 - 34.0 pg MCHC 30.8 32.0 - 36.0 g/dL RDW 16.0 11.5 - 15.5 % PLT 315 140 - 400 K/uL MPV 9.7 6.6 - 11.1 fL nRBCs 0 <=0 /100 WBCs Hemoglobin Results: Lab Results Component Value Date/Time HGB - [facility] 10.6 (L) 08/06/2023 04:55 AM HGB - [facility] 10.1 (L) 08/03/2023 06:00 AM HGB - [facility] 6.7 (LL) 07/30/2023 05:07 AM HGB - [facility] 11.6 (L) 05/11/2020 [...] I05.0 Hyperlipidemia E78.5 Coronary artery disease involving [place] coronary artery of [place] heart without angina pectoris I25.10 Moderate aortic [...] left ventricular function, NYHA class 2 ([facility]) I50.20 Hiatal hernia K44.9 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 S/p left hip fracture Z87.81 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 episode ([facility]) F32.0 Persistent atrial fibrillation ([facility]) I48.19 Type 2 diabetes mellitus with stage 3b chronic kidney disease ([facility]) E11.22, N18.32 Chronic kidney disease, stage 3b ([facility]) N18.32 Closed nondisplaced fracture of medial wall of left acetabulum ([facility]) S32.475A Calculus of gallbladder without cholecystitis without obstruction K80.20 Closed fracture of left inferior pubic ramus ([facility]) S32.592A Closed fracture of sacrum with routine healing S32.10XD Calcification of aortic valve I35.9 Moderate aortic regurgitation with left ventricular dilation by prior echocardiogram I35.1, I51.7 Moderate mitral regurgitation by prior echocardiogram I34.0 Mild tricuspid regurgitation by prior echocardiogram I07.1 Closed fracture of superior ramus of left pubis with routine healing S32.512D DNR (do not resuscitate) Z66 Iron deficiency anemia D50.9 Past Medical History: Diagnosis Date Aortic stenosis CAD (coronary artery disease) Chest pain DM (diabetes mellitus) ([facility]) DVT prophylaxis 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 LVEF 50 to 55%. LA moderately dilated. Severe calcification aortic valve. Moderate aortic regurgitation. Moderate . Moderate MR. Mild TR. [facility] CABG, ARTERIAL, SINGLE 1999 COLONOSCOPY, DIAGNOSTIC (RECTUM) 09/09/2019 poor prep, repeat / COLONOSCOPY FLEXIBLE PROXIMAL DIAGNOSTIC performed by Filipe Hankins MD atENDOSCOPY [facility] COLONOSCOPY, DIAGNOSTIC (RECTUM) 09/10/2019 normal / COLONOSCOPY FLEXIBLE PROXIMAL DIAGNOSTIC performed by Filipe Hankins MD at ENDOSCOPY [facility] EGD, FLEXIBLE, DIAGNOSTIC 07/21/2021 hiatal hernia / [facility] TOTAL HIP REPLACEMENT & PROSTHESIS Left 10/07/2021 [...] Smoking status: Former Packs/day: 5.00 Years: 3.00 Pack years: 15.00 Types: Pipe, Cigarettes Quit date: 2018 Years since quittin.7 Smokeless tobacco: Never Tobacco comments: Rarely smokes a pipe, infrequent Vaping Use Vaping Use: Never used Substance and Sexual Activity Alcohol use: Yes Comment: rare Drug use: Never Sexual activity: Not on file Other Topics Concern Not on file Social History Narrative since Oct 11 2018 Social Determinants of Health Financial Resource Strain: Not on file Food Insecurity: No Food Insecurity Worried About Running Out of Food in [...] list as this cannot be edited in [employer]. Review of Systems: Constitutional ROS: No change in weight, No change in weakness, No change in fatigue and No fevers,sweats, or chills Nose ROS: No nasal stuffiness [...] change in appetite, No nausea, vomiting, diarrhea, +constipation and No dysphagia Skin/Integumentary ROS: No rash [...] non-tender, neck veins flat, trachea midline Heart: irreg irreg rhythm, no murmurs and no gallops Lungs: normal respiratory rate and rhythm, no chest wall tenderness, lungs clear to auscultation Abdomen: abdomen soft, non-tender, normal bowel sounds and no masses or organomegaly Extremities: no edema, no clubbing, no cyanosis Neuro Exam: alert with fluent speech, no focal motor/sensory deficits Skin: skin color, texture, turgor are normal, no rashes or significant lesions ASSESSMENT: Hematest positive stools (Primary) I had a lengthy phone conversation with pt's Ian VALENTIN. Discussed pt's anemia and heme positive stools and significance of this. Discussed that pt could have occult lesion in GI tract or have GI bleeding. Pt is also on anticoagulation. Discussed workup that would be required incluiding endoscopy, CT scanning, etc. Discussed risk of stopping anticoagulation POA states that pt is naturally declining and does has told him that he doesn't want aggressive diagnostic studies done. POA requests to closely observe with scheudled CBC's ordered by hematology will monitor vital signs. Iron deficiency anemia, unspecified iron deficiency anemia type Continue with Ferrous Sulfate 325mg BID and Vitron C daily History of blood transfusion Last transfusion two weeks ago. Pt is considering whether he wants to pursue these in the future if needed. On continuous oral anticoagulation Will continue Eiliquis 2.5mg BID and ASA 81mg daily Persistent atrial fibrillation (HCC) Stable rate Will continue Eiliquis 2.5mg BID and ASA 81mg daily 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) Continue Zoloft 50mg daily Awaiting psych consult Slow transit constipation Will increase Senna S to two AM and one HS Will follow PLAN: Reviewed CBC, BMP, Lytes and Continue present medication(s):as ordered. Care Home Home Treatment Given: as above Electronically signed by: Thao Fernandez PA-C Over 45 minutes were spent in this visit more than half the time was spent counselling or coordinating care. documented in this encounter Plan of Treatment Upcoming Encounters Date Type Specialty Care Team Description 09/18/2023 Office Visit Cardiology Shorty Rich, DO [address] [place] [address] 09/26/2023 Office Visit Urology Vitaliy Maria MD [address] [place] [address] 12/17/2023 Office Visit Dermatology Keira De Jesus PA-C [address] [place] [address] [place] [address] 05/02/2024 Nurse Only Ancillary [place], Nurse Annual [facility]ness [address] [place] [address] [place] [address] Health Maintenance Due Date Last Done Comments Diabetic Foot Exam 04/22/2022 04/22/2021, 09/23/2019 COVID-19 Vaccine ( season) 2023 04/05/2022, 08/05/2021, 12/12/2020, Additional history exists Influenza Vaccine (FLU shot) (#1) 2023 07/11/2022, 09/09/2021, 07/10/2020, Additional history exists Albumin/Creatinine Ratio 07/11/2023 07/11/2022, 08/30 HbA1c 07/15/2023 01/12/2023, 09/0 04/2022, 11/22/2021, Additional history exists CKD PHOS USE SMARTSET 05301 01/13/2024 01/12/2023, 0 05/04/2021 Depression Screening 04/30/2024 04/30/2023 CKD HGB USE SMARTSET 72541 08/06/202408/06, 08/06/2023, 08/03/2023, Additional history exists DTaP,Tdap,and [...] as of this encounter Visit Diagnoses Diagnosis Hematest positive stools- Primary Nonspecific abnormal finding in stool contents Iron deficiency anemia, unspecified iron deficiency anemia type History of blood transfusion Other specified personal history presenting hazards to health On continuous oral anticoagulation Persistent atrial fibrillation (HCC) Atrial fibrillation 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) Slow transit constipation documented in this encounter Advance Directives Documents on File Type Date Recorded Patient Aba Tutor Expl anation Power of Educational Guidance Counselor 01/13/2019 POWER OF A TTORNEY Healthcare Agents on File Name Relationship Healthcare Agent Relationship Communication Ian Henriquez Other - (no specific identity) Health Care Agent (per Health Care Power of Educational Guidance Counselor document) Care Teams Screen Machine Operator Relationship Specialty Start Date End Date Jaelyn Pemberton MD [address] [place] [address] [place] [address] PCP - General Family Medicine 08/20/19 documented as of this encounter
--- OUTSIDE RECORDS SUMMARY | 2023-09-23 21:02 | External Medical Summary ---
Author Name Unknown Address Unknown Organization K01:[facility] [place] [address] [place] [address] Laboratory Report Ordering Provider Test Date Status KALEY KERNS 08/06/2023 04:55:00 Final Observation Date Value Abnormality Reference (Units ) Status WBC, Total 08/06/2023 04:55:00 7.88 4.00-10.80 (K/uL) Final RBC 08/06/2023 04:55:00 3.53 4.50-5.25 (M/uL) Final Hemoglobin 08/06/2023 04:55:00 10.6 Below low normal 14.0-16.8 (g/dL) Final HCT 08/06/2023 04:55:00 34.4 Below low normal 40.0-48.4 (%) Final MCV 08/06/2023 04:55:00 97.5 82.0-99.5 (fL) Final MCH 08/06/2023 04:55:00 30.0 27.0-34.0 (pg) Final MCHC 08/06/2023 04:55:00 30.8 32.0-36.0 (g/dL) Final RDW 08/06/2023 04:55:00 16.0 11.5-15.5 (%) Final Platelets 08/06/2023 04:55:00 315 140-400 (K/uL) Final MPV 08/06/2023 04:55:00 9.7 6.6-11.1 (fL) Final Nucleated erythrocytes/100 leukocytes [Ratio] in Blood by Automated count 08/06/2023 04:55:00 0 <=0 (/100 WBCs) Final Performing Location [facility] [place] [address] [place] [address]
--- OUTSIDE RECORDS SUMMARY | 2023-09-23 21:02 | External Medical Summary | Summary of Care ---
Author Name Unknown Organization [facility] Address [address] [place] [address] Phone [phone] Care Team Providers Care Adjunct Psychology Faculty Member Name Role Phone Jaelyn Pemberton MD Primary Care Prov ider Encounter Details Date Type Department Care Team Description 08/05/2023 Orders Only Lab Mobile Phlebotomy [facility] [address] [place] [address] Angel Coronel MD [address] [place] [address] [place] [phone] Anemia* Allergies No known active allergiesdocumented as of this encounter (statuses as of 08/05/2023) Medications Medication Sig Dispensed Refills Start Date [...] Oral Tablet (Eliquis)Indications:C oronary artery disease 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[place] heart without angina pectoris Take 1 Tablet [...] (blood pressure) < 140/90,Coronary artery disease 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[place] heart without angina pectoris Take 1 Tablet [...] reduced left ventricular function, NYHA class 2 ([facility]),Coronary artery disease 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[place] heart without angina pectoris TAKE 1/2 TAB [...] as of this encounter (statuses as of 08/05/2023) Active Problems Problem Noted Date DNR (do not resuscitate) 07/26/2023 Closed fracture [...] stenosis Hyperlipidemia Coronary artery disease invo lving [place] coronary artery of [place] heart without angina pectoris Moderate aortic stenosis by prior echoca rdiogram documented as of this encounter (statuses as of 08/05/2023) Resolved Problems Problem Noted Date Resolved Date [...] as of this encounter (statuses as of 08/05/2023) Immunizations Name Administration Dates Next Due COVID-19 mRNA, LNP-s, No Pre serve, 2-Dose Series ([place]) 08/05/2021,12/12/2020,11/21/2020 COVID-19, LNP-s, No Preserve , Rashawn-sucrose, [...] Encounters Date Type Specialty Care Team Description 08/06/2023 Laboratory Laboratory Processing [address] [place] [id number] 09/18/2023 Office Visit Cardiology Shorty Rich, DO [address] [place] [address] 09/26/2023 Office Visit Urology Vitaliy Maria MD [address] [place] [address] 12/17/2023 Office Visit Dermatology Keira De Jesus PA-C [address] [place] [address] [place] [address] 05/02/2024 Nurse Only Ancillary [place], Nurse Annual Wellness [address] [place] [address] [place] [phone] Scheduled Orders Name Type Priority Associated Diagnoses Orde r Schedule CBC WITH WBC DIFFERENTIAL Lab Routine Anemia Expected: 08/06/2023, Expires: 08/05/2024 BASIC METABOLIC PANEL Lab Routine Anemia Expected: 08/06/2023, Expires: 08/05/2024 Health Maintenance Due Date Last Done Comments Diabetic Foot Exam 04/22/2022 04/22/2021, 09/23/2019 COVID-19 Vaccine ( season) 2023 04/05/2022, 08/05/2021, 12/12/2020, Additional history exists Influenza Vaccine (FLU shot) (#1) 2023 07/11/2022, 09/09/2021, 07/10/2020, Additional history exists Albumin/Creatinine Ratio 07/11/2023 07/11/2022, 08/30 HbA1c 07/15/2023 01/12/2023, 04/2022, 11/22/2021, Additional history exists CKD PHOS USE SMARTSET 32658 01/13/2024 01/12/2023, 0 05/04/2021 Depression Screening 04/30/2024 04/30/2023 CKD HGB USE SMARTSET 07164 08/03/202408/03, 07/30/2023, 07/30/2023, Additional history exists DTaP,Tdap,and Td Vaccines (2 [...] Documents on File Type Date Recorded 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
--- OUTSIDE RECORDS SUMMARY | 2023-09-23 21:02 | External Medical Summary | Summary of Care ---
Author Name Unknown Organization [facility] Address [address] [place] [address] Phone [phone] Care Team Providers Care Assistant Store Manager Operations Name Role Phone Jaelyn Pemberton MD Primary Care Prov ider Reason for Visit * Reason Onset Date Comments Complicated Acute Visit 08/20/2023 Encounter Details Date Type Department Care Team (Latest Contact Info) Description 08/20/2023 10:30 AM EDT Detention Visit [facility] [address] [place] [address] Thao Fernandez PA-C [address] [place] [address] Urinary retention*; BPH with obstruction/lower urinary tract [...] Oral Tablet (Eliquis)Indications:C oronary artery disease involving [place] coronary artery of [place] heart without angina pectoris Take 1 Tablet [...] (blood pressure) < 140/90,Coronary artery disease involving [place] coronary artery of [place] heart without angina pectoris Take 1 Tablet [...] NYHA class 2 (HCC),Coronary artery disease 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. Please see facility medical record for original note. This note is not to be edited or addended in [employer] ([employer]). Editing or addending needs to occur in [...] I05.0 Hyperlipidemia E78.5 Coronary artery disease involving [place] coronary artery of [place] heart without angina pectoris I25.10 Moderate aortic [...] regurgitation. Moderate . Moderate MR. Mild TR. [facility] CABG, ARTERIAL, SINGLE 1999 COLONOSCOPY, DIAGNOSTIC (RECTUM) 09/09/2019 poor prep, repeat / COLONOSCOPY FLEXIBLE PROXIMAL DIAGNOSTIC performed by Filipe Hankins MD [facility] COLONOSCOPY, DIAGNOSTIC (RECTUM) 09/10/2019 normal / COLONOSCOPY FLEXIBLE PROXIMAL DIAGNOSTIC performed by Filipe Hankins MD at ENDOSCOPY [facility] EGD, FLEXIBLE, DIAGNOSTIC 07/21/2021 hiatal hernia / [facility] TOTAL HIP REPLACEMENT & PROSTHESIS Left [...] list as this cannot be edited in [employer]. Review of Systems: Constitutional ROS: No change [...] dip and C&S if dip is positive Will obtain bladder US in facility BPH with obstruction/lower urinary tract symptoms Continue Proscar 5mg daily Concern regarding starting Flomax with pt's low BP readings Iron deficiency anemia, unspecified iron deficiency anemia type Continue Ferrous Sulfate BID and Vitron C daily Will recehck H/H Chronic kidney disease, stage 3b (HCC) Recheck BMP PLAN: Reviewed CBC, BMP, Lytes and Continue present medication(s):as ordered. [facility] Home Treatment Given: H/H and BMP next lab draw Electronically signed by: Thao Fernandez PA-C Over 45 minutes were spent in this visit more than half the time was spent counselling or coordinating care. documented in this encounter Plan of Treatment Upcoming Encounters Date Type Department Care Team (Late st Contact Info) Description 09/12/2023 10:30 AM EST Cardiac Studies Cardiology, [facility] [address] [facility] [place] [address] [facility] [address] [facility] [place] [address] 09/18/2023 2:30 PM EST Office Visit Cardiology, [facility] [address] [place] [address] Shorty Rich, [address] [facility] [place] [address] 09/26/2023 11:15 AM EST Office Visit Urology, [facility] [address] [place] [address] Vitaliy Maria MD [address] [place] [address] 12/17/2023 3:20 PM EST Office Visit Dermatology [address] [place] [address] Keira De Jesus PA-C [address] [place] [address] [place] [phone] 05/02/2024 2:00 PM EDT Nurse Only Ancillary [address] [place] [address] [place], Nurse Annual Wellness [address] [place] [address] [place] [address] Health Maintenance Due Date Last Done Comments Hepatitis B (1 of 3 - Risk 3-dose series) 1996 Diabetic Foot Exam 04/22/2022 04/22/2021, 09/23/2019 COVID-19 Vaccine ( season) 2023 04/05/2022, 08/05/2021, 12/12/2020, Additional history exists Influenza Vaccine (FLU shot) (#1) 2023 07/11/2022, 09/09/2021, 07/10/2020, Additional history exists Albumin/Creatinine Ratio 07/11/2023 07/11/2022, 08/30 HbA1c 07/15/2023 01/12/2023, 04/2022, 11/22/2021, Additional history exists CKD PHOS USE SMARTSET 50929 01/13/2024 01/12/2023, 0 05/04/2021 Depression Screening 04/30/2024 04/30/2023 CKD HGB USE SMARTSET 58803 08/20/202408/20, 08/20/2023, 08/13/2023, Additional history exists DTaP,Tdap,and [...] Documents on File Type Date Recorded 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
--- OUTSIDE RECORDS SUMMARY | 2023-09-23 21:02 | External Medical Summary ---
Author Name Unknown Address Unknown Organization [id number]:[facility] - [address] [facility] [address] Laboratory Report Ordering Provider Test Date Status KALEY KERNS 08/13/2023 06:15:00 Final Observation Date Value Abnormality Reference (Units ) Status SYNC LEUKOCYTES IN BLOOD BY AUTOMATED COUNT 08/13/2023 06:15:00 6.30 4.00-10.80 (K/uL) Final Segs 08/13/2023 06:15:00 56.6 40.0-75.0 (%) Final Lymphs % 08/13/2023 06:15:00 21.1 18.0-42.0 (%) Final Monos 08/13/2023 06:15:00 12.1 Above high normal 1.0-11.0 (%) Final Eosinophils 08/13/2023 06:15:00 8.6 Above high normal 0.0-6.0 (%) Final Basos 08/13/2023 06:15:00 1.3 0.0-2.0 (%) Final Immature Granulocyte, Percent 08/13/2023 06:15:00 0.3 0.0-2.0 (%) Final Absolute Segs 08/13/2023 06:15:00 3.57 1.80-7.70 (K/uL) Final Lymphs, absolute 08/13/2023 06:15:00 1.33 1.00-4.80 (K/ul) Final Monos, Abs 08/13/2023 06:15:00 0.76 0.00-1.10 (K/uL) Final Eos, Abs 08/13/2023 06:15:00 0.54 0.00-0.70 (K/uL) Final Basos, Abs 08/13/2023 06:15:00 0.08 0.00-0.20 (K/uL) Final Immature Granulocytes, Number 08/13/2023 06:15:00 0.02 0.00-0.20 (K/uL) Final Performing Location [facility] - [facility] [place] [address] [facility] [address]
--- OUTSIDE RECORDS SUMMARY | 2023-09-23 21:02 | External Medical Summary | Summary of Care ---
Author Name Unknown Organization [facility] Address [address] [place] [address] Phone [phone] Care Team Providers Care Ad Clerk Name Role Phone Jaelyn Pemberton MD Primary Care Prov ider Reason for Visit * Reason Comments Follow Up Anemia Encounter Details Date Type Department Care Team Description 08/03/2023 Office Visit Hematology/Oncology [facility] [address] [facility] [address] Tez Garcia MD [address] [place] [address] Other iron deficiency anemia*; B12 deficiency Allergies No known active allergiesdocumented as of this encounter (statuses as of 08/03/2023) Medications Medication Sig Dispensed Refills Start Date [...] Oral Tablet (Eliquis)Indications:C oronary artery disease involving [place] coronary artery of [place] heart without angina pectoris Take 1 Tablet [...] (blood pressure) < 140/90,Coronary artery disease involving [place] coronary artery of [place] heart without angina pectoris Take 1 Tablet [...] reduced left ventricular function, NYHA class 2 ([facility]),Coronary artery disease involving [place] coronary artery of [place] heart without angina pectoris TAKE 1/2 TAB [...] as of this encounter (statuses as of 08/03/2023) Active Problems Problem Noted Date DNR (do [...] stenosis Hyperlipidemia Coronary artery disease invo lving [place] coronary artery of [place] heart without angina pectoris Moderate aortic stenosis by prior echoca rdiogram documented as of this encounter (statuses as of 08/03/2023) Resolved Problems Problem Noted Date Resolved Date [...] as of this encounter (statuses as of 08/03/2023) Immunizations Name Administration Dates Next Due COVID-19 mRNA, LNP-s, No Pre serve, 2-Dose Series ([employer]) 08/05/2021,12/12/2020,11/21/2020 COVID-19, LNP-s, No Preserve , Rashawn-sucrose, [...] Q uit: 2019 Pipe Smokeless Tobacco: Never Tobacco Cessation:Counseling Given: Not Answered Comments:Rarely smokes a pipe, infrequent Alcohol Use Standard Drinks/Week Comments Yes [...] Sign Reading Time Taken Comments Blood Pressure 108/53 08/03/2023 10:52 AM EDT Pulse 60 08/03/2023 10:52 AM EDT Temperature 37 C (98.6 F) 08/03/2023 10:52 AM EDT Respiratory Rate 16 08/03/2023 10:52 AM EDT Oxygen Saturation 92% 08/03/2023 10:52 AM EDT Inhaled Oxygen Concentration - - Weight 72.6 kg (160 lb) 08/03/2023 10:52 AM EDT Height 175.3 cm (5' 9") 08/03/2023 10:52 AM EDT Body Mass Index 23.63 08/03/2023 10:52 AM EDT documented in this encounter Progress Notes * Tez Garcia MD - 08/03/2023 11:15 AM EDT RAMONA ZAPATA MR # [id number] :1935 88-year-old male Date of consultation:01/18/2022 DIAGNOSIS: -iron deficiency anemia. Upper and lower GI endoscopic evaluation done earlier in years, no abnormal findings noted. -he had left hip fracture following a fall, had a surgery ( September 2021), postoperatively hemoglobin level dropped down to around 6.8, received 2 units of PRBC. Hiatal hernia, he is also on oral anticoagulant Eliquis for underlying cardiac arrhythmia may be contributing to the bleeding. In late April 2023, he had frequent fall, he was admitted at [facility], left acetabular fracture and the cycles fracture, treated conservatively. Some mild local bleed noted at the fracture site. Also may have abnormal kidney function test causing anemia. Possible chronic low-grade infection, perhaps UTI, he has bladder outlet obstruction. Overall multifactorial causes for anemia. CURRENT TREATMENT: - he will continue oral iron replacement therapy twice a day He is already on Vitamin B12 supplementation. We should check CBCD perhaps every weekly and consider for blood transfusion if the hemoglobin level is less than 7. DIAGNOSTIC WORKUP: He is referred to hematology for anemia: I reviewed his blood workup, he says that he moved to [facility] somewhere in 2018, before that he was info: Area. He had hemoglobin level around 12.8 in 07/2019. Dropped down to around 10 g/dL in March 2020. Colonoscopy in August 2019 --> unremarkable -upper GI Endoscopy (07/18/2021: Unremarkable He had an accidental fall with fracture of the left femoral neck, S/P left anterior hip hemiarthroplasty by Dr. Davila in September 2000 the 21. Subsequently hemoglobin dropped down to around 6.8 g/dL as of 10/14/2021, he received 2 units of PRBC. He is on oral iron replacement therapy for the last several months, 1 tablet a day. Gradual improvement of the hemoglobin level noted to around 10.3 g/dL as of 12/30/2021. - Normal WBC and normal Platelet count. OTHER IMPORTANT HISTORY: -atrial fibrillation, on Eliquis. -hyperlipidemia -S/P pacemaker placement -chronic kidney disease. - moderate mitral regurgitation and aortic regurgitation - DM INTERVAL HISTORY: He has come the clinic for the follow-up, currently he is at [facility] since April 2023 following [facility] hospital discharge. He came to clinic in the wheelchair, does complain of left hip pain, not much ambulating, no leg edema, he is on Eliquis, he takes oral iron twice a day, denies any bleeding from any sites, no nausea, fair appetite, no cardiac or pulmonary symptoms not on oxygen treatment. Has some nonspecific intermittent headaches. 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 LVEF 50 to 55%. LA moderately dilated. Severe calcification aortic valve. Moderate aortic regurgitation. Moderate . Moderate MR. Mild [facility] CABG, ARTERIAL, SINGLE 1999 COLONOSCOPY, DIAGNOSTIC (RECTUM) 09/09/2019 poor prep, repeat / COLONOSCOPY FLEXIBLE PROXIMAL DIAGNOSTIC performed by Filipe Hankins MD [facility] COLONOSCOPY, DIAGNOSTIC (RECTUM) 09/10/2019 normal / COLONOSCOPY FLEXIBLE PROXIMAL DIAGNOSTIC performed by Filipe Hankins MD at ENDOSCOPY [facility] EGD, FLEXIBLE, DIAGNOSTIC 07/21/2021 hiatal hernia / [facility] TOTAL HIP REPLACEMENT & PROSTHESIS Left 10/07/2021 Dr. Davila--left hip fracture Current Outpatient Medications Medication Sig Dispense Refill [...] needed for Pain, Chest. 25 Tablet 1 Furosemide 40 MG Oral Tablet (Lasix) Take by mouth 1 Tablet in the morning. 90 Tablet 3 Finasteride 5 MG Oral Tablet (Proscar) Take 1 Tablet (5 mg) by mouth in the morning. 90 Tablet 3 Apixaban 2.5 MG Oral Tablet (Eliquis) Take 1 Tablet by mouth in the morning and 1 Tablet before bedtime. 180 Tablet 1 Sennosides-Docusate Sodium 8.6-50 MG Oral Tablet (Senna S) Take 1 Tablet by mouth in the morning. 90 Tablet 1 B-12 1000 MCG Oral Tablet Take 1 tablet by mouth daily 90 Tablet 3 Vitron-C 65-125 MG Oral Tablet (Iron-Vitamin C 65-125 mg per tab) Take 1 Tablet by mouth once a dayon Sunday, Sunday, and Sunday only. 40 Tablet 3 Folic Acid 1 MG Oral [...] EYE 3 TIMES DAILY 10 mL 0 Sertraline HCl 25 MG Oral Tablet (Zoloft) Take 2 Tablets by mouth in the morning. No current facility-administered medications for this visit. Family History Problem Relation Age of Onset Heart Disorder Mother Heart disease Mother Cancer Father prostate Prostate cancer Father Social History Socioeconomic History Marital status: Single Spouse name: Not on file Number of children: Not on file Years of education: Not on file Highest education level: Not on file Occupational History Not on file Tobacco Use Smoking status: Former Packs/day: 5.00 Years: 3.00 Pack years: 15.00 Types: Pipe, Cigarettes Quit date: 2019 Years since quittin.7 Smokeless tobacco: Never Tobacco [...] on file Housing Stability: Not on file On Exam: Examination in sitting position. BP 108/53 (BP Site: Left Arm, BP Position: Sitting, BP Cuff Size: Large) | Pulse 60 | Temp 37 C (98.6 F) (Tympanic) | Resp 16 | Ht 1.753 m (5' 9") | Wt 72.6 kg (160 lb) | SpO2 92% | BMI 23.63 kg/m | BSA 1.88 m Constitutional: Patient is alert, cooperative and oriented x 3. Thin built man, Patient is in no acute distress. HEENT:No icterus, pallor, Throat and pharynx normal. Sinuses are non-tender. Neck: Supple and without lymphadenopathy or masses. No JVD. No Palpable supraclavicular lymph nodes. Lungs: Clear to auscultation. Bilateral symmetric air entry. No wheezing or rhonchi. Cardiovascular: Normal heart sounds, no murmurs.Regular rate and rhythm. Abdomen: soft, nontender, Neurological: No gross focal neurological deficit; Extremities: No finger clubbing, No cyanosis. Mild left leg edema Skin:: No skin rash. LABS: Blood workup done on 12/30/2021: -WBC 5016, H&H of 10.3/32, MCV 98.8, Platelet 219,000 -Serum iron: 90, TIBC 354, iron saturation 25% -ferritin level --> 65 HGB Latest Ref Rng 14.0 - 16.8 g/dL 06/06/2023 9.6 (L) 06/08/2023 8.2 (L) 06/11/2023 8.7 (L) 06/15/2023 8.2 (L) 06/29/2023 8.6 (L) 07/13/2023 8.3 (L) 07/25/2023 8.4 (L) 07/27/2023 7.1 (L) 07/30/2023 6.7 (LL) ( 2 Units at [facility]) 08/03/2023 10.1 (L) - WBC and Platelet count has remained normal range. MCV is around 90 by - 100 range. -BUN/Creat: 42/1.2, Calcium 7.9 (07/30/2023) IMAGING: CT scan of chest (April 2021). 1. Small bilateral pleural effusions with scarring at both lung bases. Mild cardiomegaly. 2. Large sliding and paraesophageal hiatal hernia. CT scan of the abdomen and pelvis ( April 2021) 1. Mild prostatic enlargement with asymmetric enlargement of right seminal vesicle. Correlation with serum PSA suggested 2. Thickened trabeculated bladder wall implies underlying chronic outlet obstruction. Small bladder diverticulum is present. 3. Large simple cyst arising from the lower pole left kidney.No further workup recommended. 4. Constipation 5. Left adrenal lipoma/myelolipoma. This is benign and no follow-up is indicated. 6. Cholelithiasis. 7. Cystic lesion in the right ischium. Features suggest benign etiology but clinical correlation suggested. CT abdomen and pelvis ( 03/11/2023) 1. Rectosigmoid colonic thickening may represent proctitis. 2. Moderate hiatal hernia. 3. Small bilateral pleural effusions with underlying atelectasis. 4. Chronic bladder outlet obstruction with associated trabeculation. Superimposed UTI cannot be entirely excluded, correlation with urinalysis is recommended. ASSESSMENT AND PLAN: 88-year-old male, Overall appears to have hemoglobin level around 10 g/dL that could be but he is new baseline but lately for the last few weeks, gradual drop in hemoglobin level to around less than 7, he did receive 2 units of PRBC recently at [facility], now It is around 10 range He is already on oral iron supplementation twice a day. Also on Vitamin B12 supplementation. Ferritin level was around 443 but Serum iron was 20, TIBC was 208, iron saturation about 10%, oral appears to be anemia of chronic disease, he may have intermittent GI bleed, has hiatal hernia, he ese Eliquis. In late April 2023, he had a fall with left acetabular fracture, treated conservatively,may have some local bleeding at the fracture site. Overall he has multifactorial cause for the anemia. May also have some chronic low-grade UTI, has bladder outlet obstruction. Continue oral iron supplements, continue B12 supplementation I would check CBCD every weekly and consider for blood transfusion if the hemoglobin level less than 7 g/dL. Check periodic B12, folic acid Ferritin, iron profile. Please update me with the results with the questions. Will see him back in the clinic as needed Dr. Tez Garcia Hem/Onc (This note was completed using the dictation program Fluency Direct. As such, there may be misspellings, word substitutions, or other variations that should not change the essence of the clinical content of this encounter note. If there is need for further clarification, please direct questions to the provider listed above.) documented in this encounter Nursing Notes * Ramona Blum CMA - 08/03/2023 10:53 AM EDT Patient identifed by name and birthdate Do you have any concerns about pain management for today's visit? No Living Will or Advance Directive for Health Care as noted on the problem list. [employer] [facility] is a way you can talk to your provider on line through e-mail. Would you like to sign up? I can activate it for you? ALREADY ACTIVE Filed Vitals: 08/03/23 1052 BP: 108/53 Pulse: 60 Resp: 16 Temp: 37 C (98.6 F) TempSrc: Tympanic SpO2: 92% Weight: 72.6 kg (160 lb) Height: 1.753 m (5' 9") Patient was instructed to not get up on the exam table/exam chair until directed and assisted by their provider; patient is to remain seated in the chair/ wheelchair/ exam table/ exam chair for fall prevention and safety reasons. Patient is aware to have assistance to step down off exam table/exam chair with personnel. Patient voiced full comprehension of instructions. documented in this encounter Plan of Treatment Upcoming Encounters Date Type Specialty Care Team Description 09/18/2023 Office Visit Cardiology Shorty Rich DO [address] [place] [address] 09/26/2023 Office Visit Urology Vitaliy Maria MD [address] [place] [address] 12/17/2023 Office Visit Dermatology Keira De Jesus PA-C [address] [place] [address] [place] [phone] 05/02/2024 Nurse Only Ancillary [place], Nurse [facility] [address] [place] [address] [place] [phone] Health Maintenance Due Date Last Done Comments Diabetic Foot Exam 04/22/2022 04/22/2021, 09/23/2019 COVID-19 Vaccine ( season) 2023 04/05/2022, 08/05/2021, 12/12/2020, Additional history exists Influenza Vaccine (FLU shot) (#1) 2023 07/11/2022, 09/09/2021, 07/10/2020, Additional history exists Albumin/Creatinine Ratio 07/11/2023 07/11/2022, 08/30 HbA1c 07/15/2023 01/12/2023, 09/0 04/2022, 11/22/2021, Additional history exists CKD PHOS USE SMARTSET 60857 01/13/2024 01/12/2023, 0 05/04/2021 Depression Screening 04/30/2024 04/30/2023 CKD HGB USE SMARTSET 51261 08/03/202408/03, 07/30/2023, 07/30/2023, Additional history exists DTaP,Tdap,and [...] as of this encounter Visit Diagnoses Diagnosis Other iron deficiency anemia- Primary B12 deficiency Other B-complex deficiencies documented in this encounter Advance Directives Documents on File Type Date Recorded 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
--- OUTSIDE RECORDS SUMMARY | 2023-09-23 21:02 | External Medical Summary ---
Author Name Unknown Address Unknown Organization K01:[facility] [place] [address] [place] [address] Laboratory Report Ordering Provider Test Date Status KALEY KERNS 08/06/2023 04:55:00 Final Observation Date Value Abnormality Reference (Units ) Status BUN 08/06/2023 04:55:00 22 Above high normal 6-20 (mg/dL) Final Creatinine 08/06/2023 04:55:00 1.0 0.6-1.2 (mg/dL) Final Glomerular filtration rate/1.73 sq M.predicted [Volume Rate/Area] in Serum, Plasma or Blood by Creatinine-based formula (CKD-EPI) 08/06/2023 04:55:00 76 >=60 (mL/min) Final eGFR is calculated based on the CKD-EPI 2020 equation SODIUM 08/06/2023 04:55:00 138 135-146 (m mol/L) Final Potassium 08/06/2023 04:55:00 4.4 3.5-5.1 (m mol/L) Final Cl 08/06/2023 04:55:00 105 98-107 (mm ol/L) Final CO2 08/06/2023 04:55:00 23 22-32 (mmo l/L) Final Anion gap 08/06/2023 04:55:00 10 7-15 (mmol /L) Final Glucose 08/06/2023 04:55:00 108 70-120 (mg /dL) Final Calcium 08/06/2023 04:55:00 8.4 8.4-10.2 ( mg/dL) Final Performing Location [facility] [place] [address] [place] [address]
--- OUTSIDE RECORDS SUMMARY | 2023-09-23 21:02 | External Medical Summary | Summary of Care ---
Author Name Unknown Organization [facility] Address [address] [place] [address] Phone [phone] Care Team Providers Care Rn Transitional Name Role Phone aJelyn Pemberton MD Primary Care Prov ider Reason for Visit * Reason Onset Date Comments Appointment 08/02/2023 Encounter Details Date Type Department Care Team Description 08/02/2023 Telephone Cardiology, [facility] [address] [place] [address] [facility] [address] [place] [address] Appointment Allergies No known active allergiesdocumented as of this encounter (statuses as of 08/10/2023) Medications Medication Sig Dispensed Refills Start Date [...] Oral Tablet (Eliquis)Indications:C oronary artery disease involving [place] coronary artery of [place] heart without angina pectoris Take 1 Tablet [...] (blood pressure) < 140/90,Coronary artery disease involving [place] coronary artery of [place] heart without angina pectoris Take 1 Tablet [...] NYHA class 2 (HCC),Coronary artery disease involving [place] coronary artery of [place] heart without angina pectoris TAKE 1/2 TAB [...] as of this encounter (statuses as of 08/10/2023) Active Problems Problem Noted Date Iron deficiency [...] stenosis Hyperlipidemia Coronary artery disease invo lving [place] coronary artery of [place] heart without angina pectoris Moderate aortic stenosis by prior echoca rdiogram documented as of this encounter (statuses as of 08/10/2023) Resolved Problems Problem Noted Date Resolved Date [...] as of this encounter (statuses as of 08/10/2023) Immunizations Name Administration Dates Next Due COVID-19 mRNA, LNP-s, No Pre serve, 2-Dose Series ([employer]) 08/05/2021,12/12/2020,11/21/2020 COVID-19, LNP-s, No Preserve , Rashawn-sucrose, [...] Encounters Date Type Specialty Care Team Description 08/10/2023 Care Home Visit Family Medicine Thao Fernandez [facility] [address] [place] [address] 09/18/2023 Office Visit Cardiology Shorty Rich, [address] [place] [address] 09/26/2023 Office Visit Urology Vitaliy Maria MD [address] [facility] [address] [place] [address] 12/17/2023 Office Visit Dermatology Keira De Jesus PA-C [address] [place] [address] [place] [phone] 05/02/2024 Nurse Only Ancillary [place], Nurse [facility] [address] [place] [address] [place] [phone] Health Maintenance Due Date Last Done Comments Diabetic Foot Exam 04/22/2022 04/22/2021, 09/23/2019 COVID-19 Vaccine (24 season) 2023 04/05/2022, 08/05/2021, 12/12/2020, Additional history exists Influenza Vaccine (FLU shot) (#1) 2023 07/11/2022, 09/09/2021, 07/10/2020, Additional history exists Albumin/Creatinine Ratio 07/11/2023 07/11/2022, 08/30 HbA1c 07/15/2023 01/12/2023, 09/0 04/2022, 11/22/2021, Additional history exists CKD PHOS USE SMARTSET 49393 01/13/2024 01/12/2023, 0 05/04/2021 Depression Screening 04/30/2024 04/30/2023 CKD HGB USE SMARTSET 26853 08/06/202408/06, 08/06/2023, 08/03/2023, Additional history exists DTaP,Tdap,and [...] Documents on File Type Date Recorded 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
--- OUTSIDE RECORDS SUMMARY | 2023-09-23 21:02 | External Medical Summary ---
Author Name Unknown Address Unknown Organization K01:[facility] [place] [address] [place] [address] Laboratory Report Ordering Provider Test Date Status KALEY KERNS 08/13/2023 06:15:00 Final Observation Date Value Abnormality Reference (Units ) Status WBC, Total 08/13/2023 06:15:00 6.30 4.00-10.80 (K/uL) Final RBC 08/13/2023 06:15:00 3.30 4.50-5.25 (M/uL) Final Hemoglobin 08/13/2023 06:15:00 9.8 Below low normal 14.0-16.8 (g/dL) Final HCT 08/13/2023 06:15:00 32.4 Below low normal 40.0-48.4 (%) Final MCV 08/13/2023 06:15:00 98.2 82.0-99.5 (fL) Final MCH 08/13/2023 06:15:00 29.7 27.0-34.0 (pg) Final MCHC 08/13/2023 06:15:00 30.2 32.0-36.0 (g/dL) Final RDW 08/13/2023 06:15:00 15.8 11.5-15.5 (%) Final Platelets 08/13/2023 06:15:00 316 140-400 (K/uL) Final MPV 08/13/2023 06:15:00 10.1 6.6-11.1 (fL) Final Nucleated erythrocytes/100 leukocytes [Ratio] in Blood by Automated count 08/13/2023 06:15:00 0 <=0 (/100 WBCs) Final Performing Location [facility] [place] [address] [place] [address]
--- OUTSIDE RECORDS SUMMARY | 2023-09-23 21:02 | External Medical Summary ---
Author Name Unknown Address Unknown Organization K01:[facility] [place] - [address] [address] Laboratory Report Ordering Provider Test Date Status KALEY KERNS 08/06/2023 04:55:00 Final Observation Date Value Abnormality Reference (Units ) Status SYNC LEUKOCYTES IN BLOOD BY AUTOMATED COUNT 08/06/2023 04:55:00 7.88 4.00-10.80 (K/uL) Final Segs 08/06/2023 04:55:00 68.0 40.0-75.0 (%) Final Lymphs % 08/06/2023 04:55:00 15.4 Below low normal 18.0-42.0 (%) Final Monos 08/06/2023 04:55:00 8.5 1.0-11.0 (%) Final Eosinophils 08/06/2023 04:55:00 7.0 Above high normal 0.0-6.0 (%) Final Basos 08/06/2023 04:55:00 0.8 0.0-2.0 (%) Final Immature Granulocyte, Percent 08/06/2023 04:55:00 0.3 0.0-2.0 (%) Final Absolute Segs 08/06/2023 04:55:00 5.37 1.80-7.70 (K/uL) Final Lymphs, absolute 08/06/2023 04:55:00 1.21 1.00-4.80 (K/ul) Final Monos, Abs 08/06/2023 04:55:00 0.67 0.00-1.10 (K/uL) Final Eos, Abs 08/06/2023 04:55:00 0.55 0.00-0.70 (K/uL) Final Basos, Abs 08/06/2023 04:55:00 0.06 0.00-0.20 (K/uL) Final Immature Granulocytes, Number 08/06/2023 04:55:00 0.02 0.00-0.20 (K/uL) Final Performing Location LAB[facility]ORY [facility] [place] - [facility] [place] [address]
--- OUTSIDE RECORDS SUMMARY | 2023-09-23 21:02 | External Medical Summary | Summary of Care ---
Author Name Unknown Organization [facility] Address [address] [place] [address] Phone [phone] Care Team Providers Care Pig Machine Crane Operator Name Role Phone Jaelyn Pemberton MD Primary Care Prov ider Encounter Details Date Type Department Care Team Description 08/12/2023 Orders Only Lab Mobile Phlebotomy [facility] [address] [place] [address] Angel Coronel MD [address] [place] [address] [place] [id number] Anemia* Allergies No known active allergiesdocumented as of this encounter (statuses as of 08/12/2023) Medications Medication Sig Dispensed Refills Start Date [...] Oral Tablet (Eliquis)Indications:C oronary artery disease involving [place] coronary artery of [place] heart without angina pectoris Take 1 Tablet [...] (blood pressure) < 140/90,Coronary artery disease involving [place] coronary artery of [place] heart without angina pectoris Take 1 Tablet [...] ventricular function, NYHA class 2 ([facility]),Coronary artery disease involving [place] coronary artery of [place] heart without angina pectoris TAKE 1/2 TAB [...] as of this encounter (statuses as of 08/12/2023) Active Problems Problem Noted Date Iron deficiency [...] stenosis Hyperlipidemia Coronary artery disease invo lving [place] coronary artery of [place] heart without angina pectoris Moderate aortic stenosis by prior echoca rdiogram documented as of this encounter (statuses as of 08/12/2023) Resolved Problems Problem Noted Date Resolved Date [...] as of this encounter (statuses as of 08/12/2023) Immunizations Name Administration Dates Next Due COVID-19 [...] Encounters Date Type Specialty Care Team Description 08/13/2023 Laboratory Laboratory Processing [address] [place] [address] 09/18/2023 Office Visit Cardiology Shorty Rich, DO [address] [place] [address] 09/26/2023 Office Visit Urology Vitaliy Maria MD [address] [place] [address] 12/17/2023 Office Visit Dermatology Keira De Jesus, [place] Del Rosario [address] [place] [address] [place] [address] 05/02/2024 Nurse Only Ancillary Movalley, Nurse Annual Wellness [address] [place] [address] [place] [phone] Scheduled Orders Name Type Priority Associated Diagnoses Orde r Schedule CBC WITH WBC DIFFERENTIAL Lab Routine Anemia Expected: 08/13/2023, Expires: 08/12/2024 Health Maintenance Due Date Last Done Comments Diabetic Foot Exam 04/22/2022 04/22/2021, 09/23/2019 COVID-19 Vaccine ( season) 2023 04/05/2022, 08/05/2021, 12/12/2020, Additional history exists Influenza Vaccine (FLU shot) (#1) 2023 07/11/2022, 09/09/2021, 07/10/2020, Additional history exists Albumin/Creatinine Ratio 07/11/2023 07/11/2022, 08/30 HbA1c 07/15/2023 01/12/2023, 09/0 04/2022, 11/22/2021, Additional history exists CKD PHOS USE SMARTSET 00382 01/13/2024 01/12/2023, 0 05/04/2021 Depression Screening 04/30/2024 04/30/2023 CKD HGB USE SMARTSET 49048 08/06/202408/06, 08/06/2023, 08/03/2023, Additional history exists DTaP,Tdap,and [...] Documents on File Type Date Recorded 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
--- OUTSIDE RECORDS SUMMARY | 2023-09-23 21:03 | External Medical Summary ---
Author Name Unknown Address Unknown Organization K0G:[facility] [[email or web address]] [address] [place] [id number] Laboratory Report Ordering Provider Test Date Status KALEY KERNS 08/03/2023 06:00:00 Final Observation Date Value Abnormality Reference (Units ) Status WBC, Total 08/03/2023 06:00:00 9.21 4.00-10.8 0 (K/uL) Final RBC 08/03/2023 06:00:00 3.29 4.50-5.25 (M/uL) Final Hemoglobin 08/03/2023 06:00:00 10.1 Below low normal 14 .0-16.8 (g/dL) Final HCT 08/03/2023 06:00:00 32.0 Below low normal 40. 0-48.4 (%) Final MCV 08/03/2023 06:00:00 97.3 82.0-99.5 (fL) Final MCH 08/03/2023 06:00:00 30.7 27.0-34.0 (pg) Final MCHC 08/03/2023 06:00:00 31.6 32.0-36.0 (g/dL) Final RDW 08/03/2023 06:00:00 16.6 11.5-15.5 (%) Final Platelets 08/03/2023 06:00:00 300 140-400 (K /uL) Final MPV 08/03/2023 06:00:00 10.2 6.6-11.1 ( fL) Final Performing Location [facility] [[email or web address]] [place] [address] [place] [id number]
--- OUTSIDE RECORDS SUMMARY | 2023-09-23 21:03 | External Medical Summary ---
Author Name Unknown Address Unknown [facility] [facility] [address] [place] [id number] Laboratory Report Ordering Provider Test Date Status KALEY KERNS 07/30/2023 05:07:00 Final Observation Date Value Abnormality Reference (Units ) Status WBC, Total 07/30/2023 05:07:00 8.66 4.00-10.80 (K/uL) Final RBC 07/30/2023 05:07:00 2.18 4.50-5.25 (M/uL) Final Hemoglobin 07/30/2023 05:07:00 6.7 Below lower panic limits 14.0-16.8 (g/dL) Final HCT 07/30/2023 05:07:00 21.1 Below low normal 40.0-48.4 (%) Final MCV 07/30/2023 05:07:00 96.8 82.0-99.5 (fL) Final MCH 07/30/2023 05:07:00 30.7 27.0-34.0 (pg) Final MCHC 07/30/2023 05:07:00 31.8 32.0-36.0 (g/dL) Final RDW 07/30/2023 05:07:00 15.9 11.5-15.5 (%) Final Platelets 07/30/2023 05:07:00 277 140-400 (K/uL) Final MPV 07/30/2023 05:07:00 10.0 6.6-11.1 (fL) Final Performing Location [facility] [place] [address] [place] [id number]
--- OUTSIDE RECORDS SUMMARY | 2023-09-23 21:03 | External Medical Summary | Summary of Care ---
Author Name Unknown Organization [facility] Address [address] [place] [address] Phone [phone] Care Team Providers Care Fourchette Sewer Name Role Phone Jaelyn Pemberton MD Primary Care Prov ider Reason for Visit * Reason Onset Date Comments Snf Visit 07/30/2023 Encounter Details Date Type Department Care Team Description 07/30/2023 Snf Visit [facility] [address] [place] [address] Thao Fernandez PA-C [address] [place] [address] Symptomatic anemia*; Iron deficiency anemia, unspecified iron deficiency anemia type; Systolic CHF with reduced left ventricular function, NYHA class 2 ([facility]); Type 2 diabetes mellitus with stage 3b chronic kidney disease, without long-term current use of insulin ([facility]); 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 episode ([facility]); Hypertension goal BP (blood pressure) < 140/90; Coronary artery disease involving resighini coronary artery of resighini heart without angina pectoris; Cardiac pacemaker in situ Allergies No known active allergiesdocumented as of this encounter (statuses as of 07/30/2023) Medications Medication Sig Dispensed Refills Start Date [...] Pain, Chest. 25 Tablet 1 11/17/2021 Active Furosemide 40 MG Oral Tablet (Lasix) Take by mouth 1 Tablet in the morning. 90 Tablet 3 08/25/2022 Active Finasteride 5 MG Oral Tablet (Proscar) Take 1 Tablet (5 mg) by mouth in the morning. 90 Tablet 3 09/26/2022 Active Apixaban 2.5 MG Oral Tablet (Eliquis)Indications:C oronary artery disease involving resighini coronary artery of resighini heart without angina pectoris Take 1 Tablet [...] (blood pressure) < 140/90,Coronary artery disease involving res[place] coronary artery of resighini heart without angina pectoris Take 1 Tablet [...] NYHA class 2 (HCC),Coronary artery disease involving resigh[place] coronary artery of resighini heart without angina pectoris TAKE 1/2 TAB BY MOUTH IN THE MORNING *HOLD IF BLOOD PRESSURE IS LESS THAN 110/70 45 Tablet 2 06/15/2023 Active Dorzolamide HCl-Timolol Mal 22.3-6.8 MG/ML Ophthalmic Solution (Cosopt Ocumeter Plus) INSTILL 1 DROP INTO THE LEFT EYE 3 TIMES DAILY 10 mL 0 07/16/2023 Active Sertraline HCl 25 MG Oral Tablet (Zoloft) Two tablets in the morning and one tablet at bedtime 90 Tablet 1 07/27/2023 Active documented as of this encounter (statuses as of 07/30/2023) Active Problems Problem Noted Date DNR (do [...] stenosis Hyperlipidemia Coronary artery disease invo lving resighini coronary artery of resighini heart without angina pectoris Moderate aortic stenosis by prior echoca rdiogram documented as of this encounter (statuses as of 07/30/2023) Resolved Problems Problem Noted Date Resolved Date [...] as of this encounter (statuses as of 07/30/2023) Immunizations Name Administration Dates Next Due COVID-19 mRNA, LNP-s, No Pre serve, 2-Dose Series (CodeRyte) 08/05/2021,12/12/2020,11/21/2020 COVID-19, LNP-s, No Preserve , Rashawn-sucrose, [...] Progress Notes * Thao Fernandez PA-C - 07/30/2023 10:05 AM EDT Name: Delio Padilla Date of :1935 TRANSITION EVENT: Type: Non-applicable Date: July 30 Code Status: No Code This note pertains to care provided at [facility]. Please see facility medical record for original note. This note is not to be edited or addended in [employer]. Editing or addending needs to occur in the facilities medical record. Subjective: Delio Padilla is a 88 year old male. Patient being seen for continued drop in hemoglobin Chief Complaint Patient presents with Snf Visit HPI: Pt, rn long term care care, for falls, CHF, CAD, macular degeneration and s/p pelvis and acetabular fxs Pt with history of iron deficiency anemia (on Ferrous Sulfate BID and Vitron C daily) continues tohave low hemoglobin with today's hemoglobin 6.7. pt has been having easy fatiguability, malaise andepisodes of hypotension. He has had stools for occult blood times 3 performed on two separate occasions since May and negative results. Pt was last seen by hematology one year ago and refused IV iron at that time but was told that he would most likely require this in the future. Pt has upcoming hematology appt end of this week. Pt's ASA currently on hold. Pt has been having increasing depression symptoms over past several weeks with decreased oral intake. Recent increase in his Zoloft from 25mg daily to 50mg daily with some positive effect in mood. CBC Results: Results for orders placed or performed in visit on 07/30/23 CBC Result Value Ref Range WBC 8.66 4.00 - 10.80 K/uL RBC 2.18 4.50 - 5.25 M/uL HGB 6.7 (LL) 14.0 - 16.8 g/dL HCT 21.1 (L) 40.0 - 48.4 % MCV 96.8 82.0 - 99.5 fL MCH 30.7 27.0 - 34.0 pg MCHC 31.8 32.0 - 36.0 g/dL RDW 15.9 11.5 - 15.5 % PLT 277 140 - 400 K/uL MPV 10.0 6.6 - 11.1 fL Hemoglobin Results: Lab Results Component Value Date/Time HGB - [facility] 6.7 (LL) 07/30/2023 05:07 AM HGB - [facility] 7.1 (L) 07/27/2023 05:03 AM HGB - [facility] 8.4 (L) 07/25/2023 11:15 AM HGB - [facility] 11.6 (L) 05/11/2020 03:12 PM HGB - [facility] 11.4 (L) 03/31/2020 01:13 PM HGB - [facility] 12.8 (L) 08/20/2019 04:24 PM Basic Panel Results: Results for orders placed or performed in visit on 07/30/23 BASIC METABOLIC PANEL Result Value Ref Range BUN 42 (H) 6 - 20 mg/dL Creatinine 1.2 0.6 - 1.2 mg/dL Estimated Glomerular Filtration Rate 57 (L) >=60 mL/min Sodium 134 (L) 135 - 146 mmol/L Potassium 5.0 3.5 - 5.1 mmol/L Chloride 102 98 - 107 mmol/L CO2 21 (L) 22 - 32 mmol/L Anion Gap 11 7 - 15 mmol/L Glucose 122 (H) 70 - 120 mg/dL Calcium 7.9 (L) 8.4 - 10.2 mg/dL Creatinine Results: Lab Results Component Value Date/Time CREATININE - [facility] 1.2 07/30/2023 05:07 AM CREATININE - [facility] 1.0 07/27/2023 05:03 AM CREATININE - [facility] 1.1 07/25/2023 11:15 AM CREATININE - [facility] 1.3 (H) 08/10/2020 [...] Results Component Value Date/Time POTASSIUM - [facility] 5.0 07/30/2023 05:07 AM POTASSIUM - [facility] 4.3 07/27/2023 05:03 AM POTASSIUM - [facility] 4.2 07/25/2023 11:15 AM POTASSIUM - [facility] 5.0 08/10/2020 02:34 PM POTASSIUM - [facility] 3.6 05/11/2020 03:12 PM POTASSIUM - [facility] 4.4 03/31/2020 01:13 PM POTASSIUM-OUTSIDE LAB 4.2 05/22/2023 12:00 AM POTASSIUM-OUTSIDE LAB 5.1 10/05/2021 12:00 AM POTASSIUM-OUTSIDE LAB 3.7 03/11/2021 12:00 AM Sodium Results: Lab Results Component Value Date/Time SODIUM - [facility] 134 (L) 07/30/2023 05:07 AM SODIUM - [facility] 137 07/27/2023 05:03 AM SODIUM - [facility] 135 07/25/2023 11:15 AM SODIUM - [facility] 141 08/10/2020 02:34 PM SODIUM - [facility] 139 05/11/2020 03:12 PM SODIUM - [facility] 139 03/31/2020 01:13 PM TSH Results: Lab Results Component Value Date/Time TSH - [facility] 1.31 06/06/2023 05:13 AM TSH - [facility] 2.11 11/22/2021 11:25 AM TSH - [facility] 2.60 03/31/2021 08:48 AM TSH - [facility] 1.79 08/20/2019 04:24 PM TSH - OUTSIDE LAB 0.979 10/05/2021 12:00 AM AST Results: Lab Results Component Value Date/Time AST - [facility] 20 05/30/2023 05:05 AM AST - [facility] 17 03/31/2020 01:13 PM AST - [facility] 16 08/20/2019 04:24 PM ALT Results: Lab Results Component Value Date/Time ALT - [facility] 13 05/30/2023 05:05 AM ALT - [facility] 7 (L) 03/31/2020 01:13 PM ALT - [facility] 6 (L) 08/20/2019 04:24 PM ALT-OUTSIDE LAB 18 05/22/2023 12:00 AM Patient Active Problem List Diagnosis Code Hypertension goal BP (blood pressure) < 140/90 I10 Mitral stenosis I05.0 Hyperlipidemia E78.5 Coronary artery disease involving resighini coronary artery of resighini heart without angina pectoris I25.10 Moderate aortic [...] healing S32.512D DNR (do not resuscitate) Z66 Past Medical History: Diagnosis Date Aortic stenosis CAD (coronary artery disease) Chest pain DM (diabetes mellitus) (HCC) DVT prophylaxis 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 LVEF 50 to 55%. LA moderately dilated. Severe calcification aortic valve. Moderate aortic regurgitation. Moderate . Moderate MR. Mild TR. [facility] CABG, ARTERIAL, SINGLE 2000 COLONOSCOPY, DIAGNOSTIC (RECTUM) 09/09/2019 poor prep, repeat / COLONOSCOPY FLEXIBLE PROXIMAL DIAGNOSTIC performed by Filipe Hankins MD [facility] COLONOSCOPY, DIAGNOSTIC (RECTUM) 09/10/2019 normal / COLONOSCOPY FLEXIBLE PROXIMAL DIAGNOSTIC performed by Filipe Hankins MD at ENDOSCOPY [facility] EGD, FLEXIBLE, DIAGNOSTIC 07/21/2021 hiatal hernia / [facility] TOTAL HIP REPLACEMENT & PROSTHESIS Left [...] list as this cannot be edited in [employer]. Review of Systems: Constitutional ROS: No change in weight, +weakness, +fatigue and No fevers, sweats, or chills Eye ROS: No recent significant change in vision, No eye pain, redness, discharge and No diplopia + macular degeneration Ear ROS: No ear pain, No drainage, No tinnitus + vertigo, and No recent change in hearing Nose ROS: No nasal stuffiness and No [...] vomiting, diarrhea, or constipation and No dysphagia Musculoskeletal/Extremities ROS: DJD see HPI Skin/Integumentary ROS: No rash and No itching Neurologic ROS: No headaches and No seizures Psychiatric ROS: +depression, No anxiety and No psychosis Sleep: No sleep disorders OBJECTIVE: PHYSICALEXAM: I reviewed the most recent facilities vitals. General: alert, easily fatigued, no distress, frail Eye Exam: Conjunctiva are pale and non-injected, sclera clear Ears: External ears normal Nose: no mucosal erythema, no mucosal edema, no purulent discharge Oropharynx: no exudate, no erythema, lips, buccal mucosa, and tongue normal and mucous membranes are moist Neck: supple, no adenopathy, non-tender, neck veins flat, trachea midline Lymph: no palpable lymphadenopathy Heart: regular rate & rhythm, no murmurs and no gallops Lungs: normal respiratory rate and rhythm, no chest wall tenderness, lungs clear to auscultation Abdomen: abdomen soft, non-tender, normal bowel sounds and no masses or organomegaly Extremities: no edema, no clubbing, no cyanosis Neuro Exam: alert with fluent speech, no focal motor/sensory deficits Skin: skin pale, texture, turgor are normal, no rashes or significant lesions Musculoskeletal: moves all extremities with good strength ASSESSMENT: Symptomatic anemia (Primary) Discussed Rx options with pt Pt consented to blood transfusion I called [facility] and arranged for two units PRBC's under service of [facility] Hospitalist through [facility] on 07/31/23 at 7 AM Will obtain type and cross match two units PRBCs today and send to [facility] (pt's name, SS number, ,time, day and individual drawing blood must be on type and cross match ) Iron deficiency anemia, unspecified iron deficiency anemia type Continue current Ferrous Sulfate BID and Vitron C daily Keep upcoming appt with hematology Systolic CHF with reduced left ventricular function, NYHA class 2 (HCC) Stable no active CHF Will continue to hold Lasix for now Type 2 diabetes mellitus with stage 3b chronic kidney disease, without long-term current use of insulin (HCC) Stable glucoses Continue Metformin 500mg daily 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) Stable mood Continue Zoloft 50mg daily Hypertension goal BP (blood pressure) < 140/90 Stable vital signs currently Continue Losartan 12.5mg AM, Coreg 3.125mg BID with parameters Coronary artery disease involving resighini coronary artery of resighini heart without angina pectoris Stable Continue Imdur 30mg daily and Eliquis 2.5mg BID Cardiac pacemaker in situ Stable rate PLAN: Reviewed CBC, BMP, Lytes and Continue present medication(s):as ordered. Detention Home Treatment Given: as above Electronically signed by: Thao Fernandez PA-C Over 45 minutes were spent in this visit more than half the time was spent counselling or coordinating care. documented in this encounter Plan of Treatment Upcoming Encounters Date Type Specialty Care Team Description 07/30/2023 Laboratory Laboratory Processing [address] [place] [id number] Anemia; Chronic kidney disease (CKD) 08/03/2023 Office Visit Hematology Oncology Tez Garcia MD [address] [facility] [place], [place] [id number] 09/18/2023 Office Visit Cardiology Shorty Rich, DO [address] [place] [address] 09/26/2023 Office Visit Urology Vitaliy Maria MD [address] [place] [address] 12/17/2023 Office Visit Dermatology Keira De Jesus PA-C [address] [place] [address] [place] [address] 05/02/2024 Nurse Only Ancillary Movalley, Nurse Annual Wellness [address] [place] [address] [place] [address] Health Maintenance Due Date Last Done Comments Diabetic Foot Exam 04/22/2022 04/22/2021, 09/23/2019 COVID-19 Vaccine (5 - Pfizer series) 05/31/2022 04/05/2022, 08/05/2021, 12/12/2020, Additional history exists Influenza Vaccine (FLU shot) (#1) 2023 07/11/2022, 09/09/2021, 07/10/2020, Additional history exists Albumin/Creatinine Ratio 07/11/2023 07/11/2022, 08/30 HbA1c 07/15/2023 01/12/2023, 04/2022, 11/22/2021, Additional history exists CKD PHOS USE SMARTSET 13813 01/13/2024 01/12/2023, 0 05/04/2021 Depression Screening 04/30/2024 04/30/2023 CKD HGB USE SMARTSET 19527 07/30/202407/30, 07/30/2023, 07/27/2023, Additional history exists DTaP,Tdap,and Td Vaccines (2 [...] encounter Visit Diagnoses Diagnosis Anemia Anemia, unspecified Chronic kidney disease (CKD) Chronic kidney disease, unspecified Symptomatic anemia- Primary Iron deficiency anemia, unspecified iron deficiency anemia type Systolic CHF with reduced left ventricular function, NYHA class 2 (HCC) Unspecified systolic heart failure Type 2 diabetes mellitus with stage 3b chronic kidney disease, without long-term current use of insulin (HCC) 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) Hypertension goal BP (blood pressure) < 140/90 Unspecified essential hypertension Coronary artery disease involving resighini coronary artery of resighini heart without angina pectoris Cardiac pacemaker in situ documented in this encounter Advance Directives Documents on File Type Date Recorded Patient Diplomatic Officer Expl anation Power of Office Machine Service Supervisor 01/13/2019 POWER OF A TTORNEY Healthcare Agents on File Name Relationship Healthcare Agent Relationship Communication Ian Henriquez Other - (no specific identity) Health Care Agent (per Health Care Power of Office Machine Service Supervisor document) Care Teams Fourchette Sewer Relationship Specialty Start Date End Date Jaelyn Pemberton MD [address] [place] [address] [place] [id number] PCP - General Family Medicine 08/20/19 documented as of this encounter
--- OUTSIDE RECORDS SUMMARY | 2023-09-23 21:03 | External Medical Summary | Summary of Care ---
Author Name Unknown Organization [facility] Address [address] [place] [address] Phone [phone] Care Team Providers Care Rubber Molder Name Role Phone Jaelyn Pemberton MD Primary Care Prov ider Reason for Visit * Reason Onset Date Comments Appointment 06/14/2023 PACER CHECK Encounter Details Date Type Department Care Team Description 06/14/2023 Telephone [address] [place] [address] Shorty Rich, DO [address] [place] [address] Appointment (PACER CHECK) Allergies No known active allergiesdocumented as of this encounter (statuses as of 08/02/2023) Medications Medication Sig Dispensed Refills Start Date [...] Oral Tablet (Eliquis)Indication s:Coronary artery disease involving levelock coronary artery of levelock heart without angina pectoris Take 1 Tablet by mouth in the morning and 1 Tablet before bedtime. 180 Tablet 1 3 Active Sennosides-Docusate Sodium 8.6-50 MG Oral Tablet (Senna S) Take 1 Tablet by mouth in the morning. 90 Tablet 1 3 Active B-12 1000 MCG Oral Tablet Take 1 tablet by mouth daily 90 Tablet 3 3 Active Vitron-C 65-125 MG Oral Tablet (Iron-Vitamin C 65-125 mg per tab)Indications:Ane debbie, unspecified type Take 1 Tablet by mouth once a day on Sunday, Sunday, and Sunday only. 40 Tablet 3 3 Active Folic Acid 1 [...] (blood pressure) < 140/90,Coronary artery disease involving levelock coronary artery of levelock heart without angina pectoris Take 1 Tablet [...] NYHA class 2 (HCC),Coronary artery disease involving levelock coronary artery of levelock heart without angina pectoris TAKE 1/2 TAB BY MOUTH IN THE MORNING *HOLD IF BLOOD PRESSURE IS LESS THAN 110/70 45 Tablet 1 3 06/15/20 23 Discontinued Sertraline HCl 25 MG Oral Tablet (Zoloft) Take 1 Tablet by mouth in the morning. 90 Tablet 1 3 07/27/20 23 Discontinued(Ref ill) documented as of this encounter (statuses as of 08/02/2023) Active Problems Problem Noted Date Closed fracture of superior ramus of lef [...] stenosis Hyperlipidemia Coronary artery disease invo lving levelock coronary artery of levelock heart without angina pectoris Moderate aortic stenosis by prior echoca rdiogram documented as of this encounter (statuses as of 08/02/2023) Resolved Problems Problem Noted Date Resolved Date [...] as of this encounter (statuses as of 08/02/2023) Immunizations Name Administration Dates Next Due COVID-19 mRNA, LNP-s, No Pre serve, 2-Dose Series ([employer]) 08/05/2021,12/12/2020,11/21/2020 COVID-19, LNP-s, No Preserve , Rashawn-sucrose, [...] tech being unavailable. Working with [facility] to determine day to come to [facility] to perform device interrogations. Called, left message for transport at [facility] that appointment tomorrow would be cancelled and rescheduled. Attempted to call Ian as below, no answer. Unable to leave a message. * Telephone Encounter - LYNN Grijalva - 06/14/2023 2:48 PM EDT Delio is scheduled for his pacer check here at [place] 06/19. Pt's brother Ian stopped in to let us know, Delio is now in [facility] due to hip injury. Brother Ian would like called to see if Delio stillneeds this appt for the [facility] to bring him down or not. Please call Ian at ph # [phone] to advise. documented in this encounter Plan of Treatment Upcoming Encounters Date Type Specialty Care Team Description 08/03/2023 Office Visit Hematology Oncology Tez Garcia MD [address] [place] [address] 09/18/2023 Office Visit Cardiology Shorty Rich, [address] [place] [address] 09/26/2023 Office Visit Urology Vitaliy Maria MD [address] [place] [address] 12/17/2023 Office Visit Dermatology Keira De Jesus PA-C [address] [place] [address] [place] [address] 05/02/2024 Nurse Only Ancillary Paolo, Nurse Annual Wellness [address] [place] [address] [place] [address] Health Maintenance Due Date Last Done Comments Diabetic Foot Exam 04/22/2022 04/22/2021, 09/23/2019 COVID-19 Vaccine ( season) 2023 04/05/2022, 08/05/2021, 12/12/2020, Additional history exists Influenza Vaccine (FLU shot) (#1) 2023 07/11/2022, 09/09/2021, 07/10/2020, Additional history exists Albumin/Creatinine Ratio 07/11/2023 07/11/2022, 08/30 HbA1c 07/15/2023 01/12/2023, 04/2022, 11/22/2021, Additional history exists CKD PHOS USE SMARTSET 44177 01/13/2024 01/12/2023, 0 05/04/2021 Depression Screening 04/30/2024 04/30/2023 CKD HGB USE SMARTSET 19843 07/30/202407/30, 07/30/2023, 07/27/2023, Additional history exists DTaP,Tdap,and [...] Documents on File Type Date Recorded Patient Inventory Associate Expl anation Power of Assistant Secretary 01/13/2019 POWER OF A TTORNEY Healthcare Agents on File Name Relationship Healthcare Agent Relationship Communication Ian Henriquez Other - (no specific identity) Health Care Agent (per Health Care Power of Assistant Secretary document) Care Teams Rubber Molder Relationship Specialty Start Date End Date Jaelyn Pemberton MD [address] [place] [address] [place] [address] PCP - General Family Medicine 08/20/19 documented as of this encounter
--- OUTSIDE RECORDS SUMMARY | 2023-09-23 21:03 | External Medical Summary | Summary of Care ---
Author Name Unknown Organization [facility] Address [address] [place] [address] Phone [phone] Care Team Providers Care Dentofacial Orthopedics Dentist Name Role Phone Jaelyn Pemberton MD Primary Care Prov ider Reason for Visit * Reason Onset Date Comments Fpc Visit 07/27/2023 Encounter Details Date Type Department Care Team Description 07/27/2023 Fpc Visit [facility] [address] [place] [address] Thao Fernandez PA-C [address] [place] [address] Loss of weight*; Decreased oral intake; Adjustment disorder with depressed mood; Persistent atrial fibrillation (HCC); Iron deficiency anemia, unspecified iron deficiency anemia type Allergies No known active allergiesdocumented as of this encounter (statuses as of 07/27/2023) Medications Medication Sig Dispensed Refills Start Date [...] Oral Tablet (Eliquis)Indications:C oronary artery disease involving havasupai coronary artery of havasupai heart without angina pectoris Take 1 Tablet [...] (blood pressure) < 140/90,Coronary artery disease involving havasupai coronary artery of havasupai heart without angina pectoris Take 1 Tablet [...] NYHA class 2 (HCC),Coronary artery disease involving havasupai coronary artery of havasupai heart without angina pectoris TAKE 1/2 TAB [...] as of this encounter (statuses as of 07/27/2023) Active Problems Problem Noted Date DNR (do [...] stenosis Hyperlipidemia Coronary artery disease invo lving havasupai coronary artery of havasupai heart without angina pectoris Moderate aortic stenosis by prior echoca rdiogram documented as of this encounter (statuses as of 07/27/2023) Resolved Problems Problem Noted Date Resolved Date [...] as of this encounter (statuses as of 07/27/2023) Immunizations Name Administration Dates Next Due COVID-19 mRNA, LNP-s, No Pre serve, 2-Dose Series ([employer]) 08/05/2021,12/12/2020,11/21/2020 COVID-19, LNP-s, No Preserve , Rashawn-sucrose, [...] Hematology Oncology Tez Garcia MD [address] [place] [id number] 09/18/2023 Office Visit Cardiology Shorty Rich, [address] [place] [address] 09/26/2023 Office Visit Urology Vitaliy Maria MD [address] [place] [address] 12/17/2023 Office Visit Dermatology Keira De Jesus PA-C [address] [place] [address] [place] [id number] 05/02/2024 Nurse Only Ancillary Movalley, Nurse Annual Wellness [address] [place] [address] [place] [address] Health Maintenance Due Date Last Done Comments Diabetic Foot Exam 04/22/2022 04/22/2021, 09/23/2019 COVID-19 Vaccine (5 - Pfizer series) 05/31/2022 04/05/2022, 08/05/2021, 12/12/2020, Additional history exists Influenza Vaccine (FLU shot) (#1) 2023 07/11/2022, 09/09/2021, 07/10/2020, Additional history exists Albumin/Creatinine Ratio 07/11/2023 07/11/2022, 08/30 HbA1c 07/15/2023 01/12/2023, 04/2022, 11/22/2021, Additional history exists CKD PHOS USE SMARTSET 61911 01/13/2024 01/12/2023, 0 05/04/2021 Depression Screening 04/30/2024 04/30/2023 CKD HGB USE SMARTSET 48607 07/27/202407/27, 07/27/2023, 07/25/2023, Additional history exists DTaP,Tdap,and Td Vaccines (2 [...] as of this encounter Visit Diagnoses Diagnosis Loss of weight- Primary Decreased oral intake Other symptoms concerning nutrition, metabolism, and development Adjustment disorder with depressed mood Persistent atrial fibrillation (HCC) Atrial fibrillation Iron deficiency anemia, unspecified iron deficiency anemia type documented in this encounter Advance Directives Documents on File Type Date Recorded Patient Mental Hygienist Expl anation Power of Contact Center Consultant 01/13/2019 POWER OF A TTORNEY Healthcare Agents on File Name Relationship Healthcare Agent Relationship Communication Ian Henriquez Other - (no specific identity) Health Care Agent (per Health Care Power of Contact Center Consultant document) Care Teams Dentofacial Orthopedics Dentist Relationship Specialty Start Date End Date Jaelyn Pemberton MD [address] [place] [address] [place] [phone] PCP - General Family Medicine 08/20/19 documented as of this encounter
--- OUTSIDE RECORDS SUMMARY | 2023-09-23 21:03 | External Medical Summary ---
Author Name Unknown Address Unknown Organization [id number] [address] [place] [address] Laboratory Report Ordering Provider Test Date Status KALEY KERNS 07/30/2023 05:07:00 Final Observation Date Value Abnormality Reference (Units ) Status BUN 07/30/2023 05:07:00 42 Above high normal 6-20 (mg/dL) Final Creatinine 07/30/2023 05:07:00 1.2 0.6-1.2 (mg/dL) Final Glomerular filtration rate/1.73 sq M.predicted [Volume Rate/Area] in Serum, Plasma or Blood by Creatinine-based formula (CKD-EPI) 07/30/2023 05:07:00 57 Below low normal >=60 (mL/min) Final eGFR is calculated based on the CKD-EPI 2020 equation SODIUM 07/30/2023 05:07:00 134 Below low normal 135 -146 (mmol/L) Final Potassium 07/30/2023 05:07:00 5.0 3.5-5.1 (m mol/L) Final Cl 07/30/2023 05:07:00 102 98-107 (mm ol/L) Final CO2 07/30/2023 05:07:00 21 Below low normal 22- 32 (mmol/L) Final Anion gap 07/30/2023 05:07:00 11 7-15 (mmol /L) Final Glucose 07/30/2023 05:07:00 122 Above high normal 70 -120 (mg/dL) Final Calcium 07/30/2023 05:07:00 7.9 Below low normal 8.4 -10.2 (mg/dL) Final Performing Location [facility] [place] [address]
--- OUTSIDE RECORDS SUMMARY | 2023-09-23 21:03 | External Medical Summary ---
Author Name Unknown Address Unknown [facility] [address] [place] [address] Laboratory Report Ordering Provider Test Date Status KALEY KERNS 07/30/2023 05:07:00 Final Observation Date Value Abnormality Reference (Units ) Status SYNC LEUKOCYTES IN BLOOD BY AUTOMATED COUNT 07/30/2023 05:07:00 8.66 4.00-10.80 (K/uL) Final Segs 07/30/2023 05:07:00 72.1 40.0-75.0 (%) Final Lymphs % 07/30/2023 05:07:00 14.0 Below low normal 18.0-42.0 (%) Final Monos 07/30/2023 05:07:00 9.0 1.0-11.0 (%) Final Eosinophils 07/30/2023 05:07:00 4.4 0.0-6.0 (%) Final Basos 07/30/2023 05:07:00 0.5 0.0-2.0 (%) Final Absolute Segs 07/30/2023 05:07:00 6.25 1.80-7.70 (K/uL) Final Lymphs, absolute 07/30/2023 05:07:00 1.21 1.00-4.80 (K/ul) Final Monos, Abs 07/30/2023 05:07:00 0.78 0.00-1.10 (K/uL) Final Eos, Abs 07/30/2023 05:07:00 0.38 0.00-0.70 (K/uL) Final Basos, Abs 07/30/2023 05:07:00 0.04 0.00-0.20 (K/uL) Final Performing Location [facility] [address] [place] [address]
--- OUTSIDE RECORDS SUMMARY | 2023-09-23 21:03 | External Medical Summary | Summary of Care ---
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)* Allergies No known active allergiesdocumented as [...] Oral Tablet (Eliquis)Indications:C oronary artery disease involving squaxin coronary artery of squaxin heart without angina pectoris Take 1 Tablet [...] (blood pressure) < 140/90,Coronary artery disease involving squaxin coronary artery of squaxin heart without angina pectoris Take 1 Tablet [...] reduced left ventricular function, NYHA class 2 ([facility]),Coronary artery disease involving squaxin coronary artery of squaxin heart without angina pectoris TAKE 1/2 TAB [...] stenosis Hyperlipidemia Coronary artery disease invo lving squaxin coronary artery of squaxin heart without angina pectoris Moderate aortic stenosis [...] Date Type Specialty Care Team Description 08/03/2023 Laboratory Laboratory Processing [address] [place] [address] Arrived 08/03/2023 Office Visit Hematology Oncology Tez Garcia MD [address] [facility] [place] [address] 09/18/2023 Office Visit Cardiology Shorty Rich DO [address] [place] [address] 09/26/2023 Office Visit Urology Vitaliy Maria MD [address] [place] [phone] 12/17/2023 Office Visit Dermatology Keira De Jesus PA-Maria Del Rosario [address] [place] [address] [place] [address] 05/02/2024 Nurse Only Ancillary Movalley, Nurse Annual Wellness [address] [place] [address] [place] [phone] Scheduled Orders Name Type Priority Associated Diagnoses Orde r Schedule CBC Lab Routine 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) Expected: 08/03/2023, Expires: 08/03/2024 Health Maintenance Due Date Last Done Comments Diabetic Foot Exam 04/22/2022 04/22/2021, 09/23/2019 COVID-19 Vaccine ( season) 2023 04/05/2022, 08/05/2021, 12/12/2020, Additional history exists Influenza Vaccine (FLU shot) (#1) 2023 07/11/2022, 09/09/2021, 07/10/2020, Additional history exists Albumin/Creatinine Ratio 07/11/2023 07/11/2022, 08/30 HbA1c 07/15/2023 01/12/2023, 0904/2022, 11/22/2021, Additional history exists CKD PHOS USE SMARTSET 08112 01/13/2024 01/12/2023, 0 05/04/2021 Depression Screening 04/30/2024 04/30/2023 CKD HGB USE SMARTSET 31628 07/30/202407/30, 07/30/2023, 07/27/2023, Additional history exists DTaP,Tdap,and [...] as of this encounter Visit Diagnoses Diagnosis 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)- Primary Secondary diabetes mellitus with ketoacidosis, not stated as uncontrolled, or unspecified documented in this encounter Advance Directives Documents on File Type Date Recorded Patient Civil Engineering Professional Expl anation Power of Cargo Tank Mechanic 01/13/2019 POWER OF A TTORNEY Healthcare Agents on File Name Relationship Healthcare Agent Relationship Communication Ian Henriquez Other - (no specific identity) Health Care Agent (per Health Care Power of Cargo Tank Mechanic document) Care Teams Chief Cruiser Relationship Specialty Start Date End Date Jaelyn Pemberton MD [address] [place] [address] [place] [phone] PCP - General Family Medicine 08/20/19 documented as of this encounter
--- OUTSIDE RECORDS SUMMARY | 2023-09-23 21:03 | External Medical Summary | Summary of Care ---
Author Name Unknown Organization [facility] Address [address] [place] [address] Phone [phone] Care Team Providers Care Beater Head Name Role Phone Jaelyn Pemberton MD Primary Care Prov ider Encounter Details Date Type Department Care Team Description 07/30/2023 Orders Only Lab Mobile Phlebotomy [facility] [address] [place] [address] Angel Coronel MD [address] [place] [address] [place] [phone] Anemia*; Chronic kidney disease (CKD) Allergies No known active allergiesdocumented as of [...] Oral Tablet (Eliquis)Indications:C oronary artery disease involving chilkat coronary artery of chilkat heart without angina pectoris Take 1 Tablet [...] (blood pressure) < 140/90,Coronary artery disease involving chilkat coronary artery of chilkat heart without angina pectoris Take 1 Tablet [...] NYHA class 2 (HCC),Coronary artery disease involving chilkat coronary artery of chilkat heart without angina pectoris TAKE 1/2 TAB [...] stenosis Hyperlipidemia Coronary artery disease invo lving chilkat coronary artery of chilkat heart without angina pectoris Moderate aortic stenosis [...] as of this encounter Progress Notes * MADISON Crawford - 07/30/2023 12:00 AM EDT CBC documented in this encounter Plan of Treatment Upcoming Encounters Date Type Specialty Care Team Description 07/30/2023 Laboratory Laboratory Processing [address] [place] [address] Arrived 08/03/2023 Office Visit Hematology Oncology Tez Garcia MD [address] [facility] [place] [phone] 09/18/2023 Office Visit Cardiology Shorty Rich, [address] [place] [address] 09/26/2023 Office Visit Urology Vitaliy Maria MD [address] [place] [phone] 12/17/2023 Office Visit Dermatology Keira De Jesus PA-C [address] [place] [address] [place] [address] 05/02/2024 Nurse Only Ancillary Paolo, Nurse Annual Wellness [address] [place] [address] [place] [address] Scheduled Orders Name Type Priority Associated Diagnoses Orde r Schedule CBC WITH WBC DIFFERENTIAL Lab Routine Anemia Chronic kidney disease (CKD) Expected: 07/30/2023, Expires: 07/30/2024 BASIC METABOLIC PANEL Lab Routine Anemia Chronic kidney disease (CKD) Expected: 07/30/2023, Expires: 07/30/2024 Health Maintenance Due Date Last Done Comments Diabetic Foot Exam 04/22/2022 04/22/2021, 09/23/2019 COVID-19 Vaccine (5 - Pfizer series) 05/31/2022 04/05/2022, 08/05/2021, 12/12/2020, Additional history exists Influenza Vaccine (FLU shot) (#1) 2023 07/11/2022, 09/09/2021, 07/10/2020, Additional history exists Albumin/Creatinine Ratio 07/11/2023 07/11/2022, 112 04/2019 HbA1c 07/15/2023 01/12/2023, 09/0 04/2022, 11/22/2021, Additional history exists CKD PHOS USE SMARTSET 66675 01/13/2024 01/12/2023, 0 05/04/2021 Depression Screening 04/30/2024 04/30/2023 CKD HGB USE SMARTSET 41434 07/27/202407/27, 07/27/2023, 07/25/2023, Additional history exists DTaP,Tdap,and [...] Visit Diagnoses Diagnosis Anemia- Primary Anemia, unspecified Chronic kidney disease (CKD) Chronic kidney disease, unspecified documented in this encounter Advance Directives Documents on File Type Date Recorded Patient Splunk Developer Expl anation Power of Physical Director 01/13/2019 POWER OF A TTORNEY Healthcare Agents on File Name Relationship Healthcare Agent Relationship Communication Ian Henriquez Other - (no specific identity) Health Care Agent (per Health Care Power of Physical Director document) Care Teams Beater Head Relationship Specialty Start Date End Date Jaelyn Pemberton MD [address] [place] [address] [place] [phone] PCP - General Family Medicine 08/20/19 documented as of this encounter
--- OUTSIDE RECORDS SUMMARY | 2023-09-23 21:03 | External Medical Summary | Summary of Care ---
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 40 Tablet 3 02/19/2023 Active Folic Acid 1 MG Oral TabletIndications:An [...] (blood pressure) < 140/90,Coronary artery disease involving k[place] coronary artery of k[place] heart without angina pectoris Take 1 Tablet [...] NYHA class 2 (HCC),Coronary artery disease involving kob[place] coronary artery of kob[place] heart without angina pectoris TAKE 1/2 TAB [...] mouth in the morning. 0 08/01/2023 Active Sertraline HCl 25 MG Oral Tablet (Zoloft) Two tablets in the morning and one tablet at bedtime 90 Tablet 1 07/27/2023 3 Discontinue d(Refill) Sertraline HCl 25 MG Oral Tablet (Zoloft) Take 2 Tablets by mouth in the morning. Two tablets in the morning and one tablet at bedtime. 0 08/01/2023 3 Discontinue d(Refill) documented as of this encounter (statuses as of 08/01/2023) Active Problems Problem Noted Date DNR (do [...] stenosis Hyperlipidemia Coronary artery disease invo lving kobuk coronary artery of kobuk heart without angina pectoris Moderate aortic stenosis by prior echoca rdiogram documented as of this encounter (statuses as of 08/01/2023) Resolved Problems Problem Noted Date Resolved Date [...] as of this encounter (statuses as of 08/01/2023) Immunizations Name Administration Dates Next Due COVID-19 mRNA, LNP-s, No Pre serve, 2-Dose Series (Annexon) 08/05/2021,12/12/2020,11/21/2020 COVID-19, LNP-s, No Preserve , Rashawn-sucrose, [...] Progress Notes * Thao Fernandez PA-C - 08/01/2023 12:28 PM EDT Name: Delio Padilla Date of :1935 TRANSITION EVENT: Type: Non-applicable Date: August 01 Code Status: No Code This note pertains to care provided at [facility]. Please see facility medical record for original note. This note is not to be edited or addended in [employer]. Editing or addending needs to occur in the facilities medical record. Subjective: Delio Padilla is a 88 year old male. Patient being seen for post MTU followup Chief Complaint Patient presents with Prison Visit HPI: pt had two units of PRBC's through [facility] yesterday due to symptomatic anemia. Pt has hx of iron def anemia not responding to oral iron supplementation. Has seen hematology in the past and haddiscussion regarding possible need for IV iron infusions in the future. Pt has hematology consultati on this week. Pt states he's feeling less tired and fatigued. Having poor oral intake which is ongoing. Pt states "food tastes bland" pt was recently treated with Paxlovid course due to Covid 19 infection this past month. Pt has hx of depression and recently had his Zoloft increased from 25mg dailyto 50mg daily. Vital signs stable. No abdominal pains, nausea, vomiting. Drinking adequate fluids. CBC Results: Results for orders placed or [...] SODIUM - [facility] 139 03/31/2020 01:13 PM Chloride Results: Lab Results Component Value Date/Time CHLORIDE - [facility] 102 07/30/2023 05:07 AM CHLORIDE - [facility] 106 07/27/2023 05:03 AM CHLORIDE - [facility] 103 07/25/2023 11:15 AM CHLORIDE - [facility] 106 08/10/2020 02:34 PM CHLORIDE - [facility] 101 05/11/2020 03:12 PM CHLORIDE - [facility] 100 03/31/2020 01:13 PM Patient Active Problem List Diagnosis Code Hypertension goal BP (blood pressure) < 140/90 I10 Mitral stenosis I05.0 Hyperlipidemia E78.5 Coronary artery disease involving kobuk coronary artery of kob[place] heart without angina pectoris I25.10 Moderate aortic [...] reduced left ventricular function, NYHA class 2 ([facility]) I50.20 Hiatal hernia K44.9 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 S/p left hip fracture Z87.81 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 episode ([facility]) F32.0 Persistent atrial fibrillation ([facility]) I48.19 Type 2 diabetes mellitus with stage 3b chronic kidney disease ([facility]) E11.22, N18.32 Chronic kidney disease, stage 3b ([facility]) N18.32 Closed nondisplaced fracture of medial wall of left acetabulum ([facility]) S32.475A Calculus of gallbladder without cholecystitis without obstruction K80.20 Closed fracture of left inferior pubic ramus ([facility]) S32.592A Closed fracture of sacrum with routine [...] artery disease) Chest pain DM (diabetes mellitus) ([facility]) DVT prophylaxis 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 LVEF 50 to 55%. LA moderately dilated. Severe calcification aortic valve. Moderate aortic regurgitation. Moderate . Moderate MR. Mild TR. [facility] CABG, ARTERIAL, SINGLE 2000 COLONOSCOPY, DIAGNOSTIC (RECTUM) 09/09/2019 poor prep, repeat / COLONOSCOPY FLEXIBLE PROXIMAL DIAGNOSTIC performed by [facility]ilipe Hankins [facility] COLONOSCOPY, DIAGNOSTIC (RECTUM) 09/10/2019 normal / COLONOSCOPY FLEXIBLE PROXIMAL DIAGNOSTIC performed by Filipe Hankins MD at [facility]OSCOPY [facility] EGD, FLEXIBLE, DIAGNOSTIC 07/21/2021 hiatal hernia / [facility] TOTAL HIP REPLACEMENT & PROSTHESIS Left 10/07/2021 [...] list as this cannot be edited in [employer]. Review of Systems: Constitutional ROS: No change [...] abdominal pain, No change in bowel habits, +significant change in appetite, No nausea, vomiting, diarrhea, or constipation and No dysphagia Skin/Integumentary ROS: No rash and No itching Neurologic ROS: No headaches and No seizures Psychiatric ROS: + depression, No anxiety and No psychosis Sleep: No sleep disorders OBJECTIVE: PHYSICALEXAM: I reviewed the most recent facilities vitals. 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 Long Term Home Treatment Given: as above Electronically signed by: Thao Fernandez PA-C Over 35 minutes were spent in this visit more than half the time was spent counselling or coordinating care. documented in this encounter Plan of Treatment Upcoming Encounters Date Type Specialty Care Team Description 08/03/2023 Office Visit Hematology Oncology Tez Garcia MD [address] [place] [address], [place] [address] 09/18/2023 Office Visit Cardiology Shorty Rich, DO [address] [place] [id number] 09/26/2023 Office Visit Urology Vitaliy Maria MD [address] [place] [address] [place] [id number] 12/17/2023 Office Visit Dermatology Keira De Jesus PA-C [address] [place] [address] [place] [address] 05/02/2024 Nurse Only Ancillary [place], Nurse Annual Wellness [address] [place] [address] [place] [id number] Health Maintenance Due Date Last Done Comments Diabetic Foot Exam 04/22/2022 04/22/2021, 09/23/2019 COVID-19 Vaccine ( season) 2023 04/05/2022, 08/05/2021, 12/12/2020, Additional history exists Influenza Vaccine (FLU shot) (#1) 2023 07/11/2022, 09/09/2021, 07/10/2020, Additional history exists Albumin/Creatinine Ratio 07/11/2023 07/11/2022, 08/30 HbA1c 07/15/2023 01/12/2023, 04/2022, 11/22/2021, Additional history exists CKD PHOS USE SMARTSET 23922 01/13/2024 01/12/2023, 0 05/04/2021 Depression Screening 04/30/2024 04/30/2023 CKD HGB USE SMARTSET 26413 07/30/202407/30, 07/30/2023, 07/27/2023, Additional history exists DTaP,Tdap,and [...] as of this encounter Visit Diagnoses Diagnosis Symptomatic anemia- Primary History of blood transfusion Other specified personal history presenting hazards to health Persistent atrial fibrillation (HCC) Atrial fibrillation 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) documented in this encounter Advance Directives Documents on File Type Date Recorded 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
--- OUTSIDE RECORDS SUMMARY | 2023-09-23 21:03 | External Medical Summary | Summary of Care ---
Author Name Unknown Organization [facility] Address [address] [place] [address] Phone [phone] Care Team Providers Care Doctor Of Pharmacy Name Role Phone Jaelyn Pemberton MD Primary Care Prov ider Reason for Visit * Reason Onset Date Comments Retirement Visit 07/27/2023 Encounter Details Date Type Department Care Team Description 07/27/2023 Retirement Visit [facility] [address] [place] [address] Thao Fernandez PA-C [address] [place] [address] Loss of weight*; Decreased oral intake; Adjustment [...] Oral Tablet (Eliquis)Indications:C oronary artery disease involving [place] coronary artery of [place] heart without angina pectoris Take 1 Tablet [...] (blood pressure) < 140/90,Coronary artery disease involving [place] coronary artery of [place] heart without angina pectoris Take 1 Tablet [...] NYHA class 2 (HCC),Coronary artery disease involving [place] coronary artery of [place] heart without angina pectoris TAKE 1/2 TAB [...] stenosis Hyperlipidemia Coronary artery disease invo lving cher[place] coronary artery of [place] heart without angina pectoris Moderate aortic stenosis [...] Progress Notes * Thao Fernandez PA-C - 07/27/2023 1:04 PM EDT Name: Delio Padilla Date of :1935 TRANSITION EVENT: Type: Non-applicable Date: July 27 Code Status: No Code This note pertains to care provided at [facility]. Please see facility medical record for original note. This note is not to be edited or addended in [employer]. Editing or addending needs to occur in the facilities medical record. Subjective: Delio Padilla is a 88 year old male. Patient being seen for recheck visit Chief Complaint Patient presents with Retirement Visit HPI: pt has been following for ongoing weight loss, weakness, decreased oral intake and increasing depression symptoms. Pt had two liters of IVF this week. He has been seeing in house counsellor for his depression. Currently on Zoloft 25mg BID. No suicidal thoughts or plans but did make statements such as "why don't you just let me !!" Pt's Zoloft was increased to 50mg AM and 25mg PM. Psych consult is pending. Pt's mood is much improved this morning. He is happy that his recent BMP looked good and he is now drinking fluids on his own and drinking his dietary supplement. Eating a bit better. No pain issues.Vital signs stable. Pt has hematology appt next week for consideration of IV iron due to continued low hgb despite oraliron Rx. CBC Results: Results for orders placed or performed in visit on 07/25/23 CBC Result Value Ref Range WBC 11.92 (H) 4.00 - 10.80 K/uL RBC 2.67 4.50 - 5.25 M/uL HGB 8.4 (L) 14.0 - 16.8 g/dL HCT 26.5 (L) 40.0 - 48.4 % MCV 99.3 82.0 - 99.5 fL MCH 31.5 27.0 - 34.0 pg MCHC 31.7 32.0 - 36.0 g/dL RDW 15.7 11.5 - 15.5 % PLT 291 140 - 400 K/uL MPV 10.8 6.6 - 11.1 fL nRBCs 0 <=0 /100 WBCs Hemoglobin Results: Lab Results Component Value Date/Time HGB - [facility] 8.4 (L) 07/25/2023 11:15 AM HGB - [facility] 8.3 (L) 07/13/2023 05:38 AM HGB - [facility] 8.6 (L) 06/29/2023 05:42 AM HGB - [facility] 11.6 (L) 05/11/2020 03:12 PM HGB - [facility] 11.4 (L) 03/31/2020 01:13 PM HGB - [facility] 12.8 (L) 08/20/2019 04:24 PM Basic Panel Results: Results for orders placed or performed in visit on 07/25/23 BASIC METABOLIC PANEL Result Value Ref Range BUN 49 (H) 6 - 20 mg/dL Creatinine 1.1 0.6 - 1.2 mg/dL Estimated Glomerular Filtration Rate 64 >=60 mL/min Sodium 135 135 - 146 mmol/L Potassium 4.2 3.5 - 5.1 mmol/L Chloride 103 98 - 107 mmol/L CO2 20 (L) 22 - 32 mmol/L Anion Gap 12 7 - 15 mmol/L Glucose 183 (H) 70 - 120 mg/dL Calcium 8.4 8.4 - 10.2 mg/dL Creatinine Results: Lab Results Component Value Date/Time CREATININE - [facility] 1.1 07/25/2023 11:15 AM CREATININE - [facility] 1.3 (H) 07/13/2023 05:38 AM CREATININE - [facility] 1.2 06/15/2023 06:45 AM CREATININE - [facility] 1.3 (H) 08/10/2020 [...] Results Component Value Date/Time POTASSIUM - [facility] 4.2 07/25/2023 11:15 AM POTASSIUM - [facility] 4.1 07/13/2023 05:38 AM POTASSIUM - [facility] 4.4 06/15/2023 06:45 AM POTASSIUM - [facility] 5.0 08/10/2020 02:34 PM POTASSIUM - [facility] 3.6 05/11/2020 03:12 PM POTASSIUM - [facility] 4.4 03/31/2020 01:13 PM POTASSIUM-OUTSIDE LAB 4.2 05/22/2023 12:00 AM POTASSIUM-OUTSIDE LAB 5.1 10/05/2021 12:00 AM POTASSIUM-OUTSIDE LAB 3.7 03/11/2021 12:00 AM Sodium Results: Lab Results Component Value Date/Time SODIUM - [facility] 135 07/25/2023 11:15 AM SODIUM - [facility] 136 07/13/2023 05:38 AM SODIUM - [facility] 137 06/15/2023 06:45 AM SODIUM - [facility] 141 08/10/2020 02:34 [...] - OUTSIDE LAB 0.979 10/05/2021 12:00 AM Patient Active Problem List Diagnosis Code Hypertension goal BP (blood pressure) < 140/90 I10 Mitral stenosis I05.0 Hyperlipidemia E78.5 Coronary artery disease involving [place] coronary artery of [place] heart without angina pectoris I25.10 Moderate aortic [...] left ventricular function, NYHA class 2 ([facility]) I50.20 Hiatal hernia K44.9 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 S/p left hip fracture Z87.81 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 episode ([facility]) F32.0 Persistent atrial fibrillation ([facility]) I48.19 Type 2 diabetes mellitus with stage 3b chronic kidney disease ([facility]) E11.22, N18.32 Chronic kidney disease, stage 3b ([facility]) N18.32 Closed nondisplaced fracture of medial wall of left acetabulum ([facility]) S32.475A Calculus of gallbladder without cholecystitis without obstruction K80.20 Closed fracture of left inferior pubic ramus ([facility]) S32.592A Closed fracture of sacrum with routine [...] disease) Chest pain DM (diabetes mellitus) ([facility]) DVT prophylaxis 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 LVEF 50 to 55%. LA moderately dilated. Severe calcification aortic valve. Moderate aortic regurgitation. Moderate . Moderate MR. Mild TR. [facility] CABG, ARTERIAL, SINGLE 2000 COLONOSCOPY, DIAGNOSTIC (RECTUM) 09/09/2019 poor prep, repeat / COLONOSCOPY FLEXIBLE PROXIMAL DIAGNOSTIC performed by Filipe Hankins MD [facility] COLONOSCOPY, DIAGNOSTIC (RECTUM) 09/10/2019 normal / COLONOSCOPY FLEXIBLE PROXIMAL DIAGNOSTIC performed by Filipe Hankins MD at ENDOSCOPY [facility] EGD, FLEXIBLE, DIAGNOSTIC 07/21/2021 hiatal hernia / [facility] TOTAL HIP REPLACEMENT & PROSTHESIS Left 10/07/2021 [...] list as this cannot be edited in [employer]. Review of Systems: Constitutional ROS: No change [...] or constipation and No dysphagia Musculoskeletal/Extremities ROS: No pain, redness or swelling on the joints Skin/Integumentary ROS: No rash and No itching Neurologic ROS: No headaches and No seizures Psychiatric ROS: +depression, No anxiety and No psychosis Sleep: No sleep disorders OBJECTIVE: PHYSICALEXAM: I reviewed the most recent facilities vitals. General: more alert, no distress, frail Eye Exam: Conjunctiva are pink and non-injected, sclera lesli Nose: no mucosal erythema, no mucosal edema, [...] bowel sounds and no masses or organomegaly Extremities no edema, no clubbing, no cyanosis Neuro Exam: alert with fluent speech, no focal motor/sensory deficits Skin: skin color, texture, turgor are normal, no rashes or significant lesions ASSESSMENT: Loss of weight (Primary) Most likely due to depression Continue with current Zoloft dose of 50mg AM and 25mg PM Continue with dietary observation Continue with Psych consult Decreased oral intake Most likely due to depression Continue with current Zoloft dose of 50mg AM and 25mg PM Continue with dietary observation Continue with Psych consult Adjustment disorder with depressed mood Improved mood Continue with current Zoloft dose of 50mg AM and 25mg PM Persistent atrial fibrillation (HCC) Stble rate Continue with Eliquis 2.5mg bid Iron deficiency anemia, unspecified iron deficiency anemia type Has hematolgy appt next week PLAN: Reviewed CBC, BMP and Continue present medication(s):as ordered. [facility] Home Treatment Given: Lab Draw repeat BMP next lab draw Electronically signed by: Thao Fernandez PA-C Over 35 minutes were spent in this visit more than half the time was spent counselling or coordinating care. documented in this encounter Plan of Treatment Upcoming Encounters Date Type Specialty Care Team Description 09/18/2023 Office Visit Cardiology Shorty Rich, DO [address] [place] [phone] 09/26/2023 Office Visit Urology Vitaliy Maria MD [address] [place] [address] 12/17/2023 Office Visit Dermatology Keira De Jesus PA-C [address] [place] [address] [place] [address] 05/02/2024 Nurse Only Ancillary [place], Nurse Annual Wellness [address] [place] [address] [place] [phone] Health Maintenance Due Date Last Done Comments Diabetic Foot Exam 04/22/2022 04/22/2021, 09/23/2019 COVID-19 Vaccine (5 - Pfizer series) 05/31/2022 04/05/2022, 08/05/2021, 12/12/2020, Additional history exists Influenza Vaccine (FLU shot) (#1) 2023 07/11/2022, 09/09/2021, 07/10/2020, Additional history exists Albumin/Creatinine Ratio 07/11/2023 07/11/2022, 08/30 HbA1c 07/15/2023 01/12/2023, 0904/2022, 11/22/2021, Additional history exists CKD PHOS USE SMARTSET 74225 01/13/2024 01/12/2023, 0 05/04/2021 Depression Screening 04/30/2024 04/30/2023 CKD HGB USE SMARTSET 96060 07/25/202407/25, 07/25/2023, 07/13/2023, Additional history exists DTaP,Tdap,and Td Vaccines (2 [...] Documents on File Type Date Recorded 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
--- OUTSIDE RECORDS SUMMARY | 2023-09-23 21:03 | External Medical Summary | Summary of Care ---
Author Name Unknown Organization [facility] Address [address] [place] [address] Phone [phone] Care Team Providers Care Negative Developer Name Role Phone Jaelyn Pemberton MD Primary Care Prov ider Reason for Visit * Reason Onset Date Comments Correction Visit 08/02/2023 Encounter Details Date Type Department Care Team Description 08/02/2023 Correction Visit [facility] [address] [place] [address] Thao Fernandez PA-C [address] [place] [address] Iron deficiency anemia, unspecified iron deficiency anemia type*; History of blood transfusion; Heme positive stool; Systolic CHF with reduced left ventricular function, NYHA class 2 (HCC); Type 2 diabetes mellitus with stage 3b chronic kidney disease, without long-term current use of insulin ([facility]); 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 episode ([facility]) Allergies No known active allergiesdocumented as [...] Oral Tablet (Eliquis)Indications :Coronary artery disease involving [place] coronary artery of [place] heart without angina pectoris Take 1 Tablet [...] (blood pressure) < 140/90,Coronary artery disease involving [place] coronary artery of [place] heart without angina pectoris Take 1 Tablet [...] NYHA class 2 (HCC),Coronary artery disease involving [place] coronary artery of [place] heart without angina pectoris TAKE 1/2 TAB [...] mouth in the morning. 0 08/02/2023 Active Furosemide 40 MG Oral Tablet (Lasix) Take by mouth 1 Tablet in the morning. 90 Tablet 3 08/25/2022 3 Discontinue d(Medicatio n/Dose Changed) documented as of this encounter (statuses as of 08/02/2023) Active Problems Problem Noted Date DNR (do [...] stenosis Hyperlipidemia Coronary artery disease invo lving [place] coronary artery of [place] heart without angina pectoris Moderate aortic stenosis [...] mRNA, LNP-s, No Pre serve, 2-Dose Series ([employer]) 08/05/2021,12/12/2020,11/21/2020 COVID-19, LNP-s, No Preserve , Rashawn-sucrose, [...] Visit Hematology Oncology Tez Garcia MD [address] [facility] [place] [address] 09/18/2023 Office Visit Cardiology Shorty Rich DO [address] [place] [address] 09/26/2023 Office Visit Urology Vitaliy Maria MD [address] [place] [address] [place] [phone] 12/17/2023 Office Visit Dermatology Keira De Jesus PA-C [address] [place] [address] [place] [address] 05/02/2024 Nurse Only Ancillary [place]oval[place], Nurse Annual Wellness [address] [place] [address] [place] [address] Health Maintenance Due Date Last Done Comments Diabetic Foot Exam 04/22/2022 04/22/2021, 09/23/2019 COVID-19 Vaccine ( season) 2023 04/05/2022, 08/05/2021, 12/12/2020, Additional history exists Influenza Vaccine (FLU shot) (#1) 2023 07/11/2022, 09/09/2021, 07/10/2020, Additional history exists Albumin/Creatinine Ratio 07/11/2023 07/11/2022, 08/30 HbA1c 07/15/2023 01/12/2023, 04/2022, 11/22/2021, Additional history exists CKD PHOS USE SMARTSET 33767 01/13/2024 01/12/2023, 0 05/04/2021 Depression Screening 04/30/2024 04/30/2023 CKD HGB USE SMARTSET 15188 07/30/202407/30, 07/30/2023, 07/27/2023, Additional history exists DTaP,Tdap,and [...] as of this encounter Visit Diagnoses Diagnosis Iron deficiency anemia, unspecified iron deficiency anemia type- Primary History of blood transfusion Other specified personal history presenting hazards to health Heme positive stool Nonspecific abnormal finding in stool contents Systolic CHF with reduced left ventricular function, NYHA class 2 (HCC) Unspecified systolic heart failure Type 2 diabetes mellitus with stage 3b chronic kidney disease, without long-term current use of insulin (HCC) 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) documented in this encounter Advance Directives Documents on File Type Date Recorded Patient Neighborhood Coordinator Expl anation Power of Rotary Rig Engine Operator 01/13/2019 POWER OF A TTORNEY Healthcare Agents on File Name Relationship Healthcare Agent Relationship Communication Ian Henriquez Other - (no specific identity) Health Care Agent (per Health Care Power of Rotary Rig Engine Operator document) Care Teams Negative Developer Relationship Specialty Start Date End Date Jaelyn Pemberton MD [address] [place] [address] [place] [phone] PCP - General Family Medicine 08/20/19 documented as of this encounter
--- OUTSIDE RECORDS SUMMARY | 2023-09-23 21:04 | External Medical Summary ---
Author Name Unknown Address Unknown Organization [id number]:LABORATORY [facility] - [facility] [address] [facility] [address] Laboratory Report Ordering Provider Test Date Status KALEY KERNS 07/25/2023 11:15:10 Final Observation Date Value Abnormality Reference (Units ) Status BUN 07/25/2023 11:15:10 49 Above high normal 6-20 (mg/dL) Final Creatinine 07/25/2023 11:15:10 1.1 0.6-1.2 (mg/dL) Final Glomerular filtration rate/1.73 sq M.predicted [Volume Rate/Area] in Serum, Plasma or Blood by Creatinine-based formula (CKD-EPI) 07/25/2023 11:15:10 64 >=60 (mL/min) Final eGFR is calculated based on the CKD-EPI 2020 equation SODIUM 07/25/2023 11:15:10 135 135-146 (m mol/L) Final Potassium 07/25/2023 11:15:10 4.2 3.5-5.1 (m mol/L) Final Cl 07/25/2023 11:15:10 103 98-107 (mm ol/L) Final CO2 07/25/2023 11:15:10 20 Below low normal 22- 32 (mmol/L) Final Anion gap 07/25/2023 11:15:10 12 7-15 (mmol /L) Final Glucose 07/25/2023 11:15:10 183 Above high normal 70 -120 (mg/dL) Final Calcium 07/25/2023 11:15:10 8.4 8.4-10.2 ( mg/dL) Final Performing Location LABORATORY [facility] - [address] [place] [address]
--- OUTSIDE RECORDS SUMMARY | 2023-09-23 21:04 | External Medical Summary ---
Author Name Unknown Address Unknown Organization [id number]:[facility] [place] [facility] [address] [facility] [address] [facility] [address] Laboratory Report Ordering Provider Test Date Status KALEY KERNS 07/25/2023 11:15:10 Final Observation Date Value Abnormality Reference (Units ) Status WBC, Total 07/25/2023 11:15:10 11.92 Above high normal 4.00-10.80 (K/uL) Final RBC 07/25/2023 11:15:10 2.67 4.50-5.25 (M/uL) Final Hemoglobin 07/25/2023 11:15:10 8.4 Below low normal 14.0-16.8 (g/dL) Final HCT 07/25/2023 11:15:10 26.5 Below low normal 40.0-48.4 (%) Final MCV 07/25/2023 11:15:10 99.3 82.0-99.5 (fL) Final MCH 07/25/2023 11:15:10 31.5 27.0-34.0 (pg) Final MCHC 07/25/2023 11:15:10 31.7 32.0-36.0 (g/dL) Final RDW 07/25/2023 11:15:10 15.7 11.5-15.5 (%) Final Platelets 07/25/2023 11:15:10 291 140-400 (K/uL) Final MPV 07/25/2023 11:15:10 10.8 6.6-11.1 (fL) Final Nucleated erythrocytes/100 leukocytes [Ratio] in Blood by Automated count 07/25/2023 11:15:10 0 <=0 (/100 WBCs) Final Performing Location [facility] [place] [address] [place] [address]
--- OUTSIDE RECORDS SUMMARY | 2023-09-23 21:04 | External Medical Summary | Summary of Care ---
Author Name Unknown Organization [facility] Address [address] [place] [address] Phone [phone] Care Team Providers Care Stenotype Machine Operator Name Role Phone Jaelyn Pemberton MD Primary Care Prov ider Reason for Visit * Reason Comments Outpatient Testing Encounter Details Date Type Department Care Team Description 07/25/2023 Laboratory Laboratory [address] [place] [id number] , Specimen Drop Off [address] [place] [phone] Iron deficiency anemia, unspecified iron deficiency anemia type; Encounter for long-term (current) use of medications; Preventative health care; Chronic kidney disease, stage 3b ([facility]); Type 2 diabetes mellitus with stage 3b chronic kidney disease, without long-term current use of insulin ([facility]); Mixed hyperlipidemia; Weight loss; 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 90 Tablet 3 09/26/2022 Active Sertraline HCl 25 MG Oral Tablet (Zoloft) Take 1 Tablet by mouth in the morning. 90 Tablet 1 12/19/2022 Active Apixaban 2.5 MG Oral Tablet (Eliquis)Indications:C oronary artery disease involving [place] coronary artery of [place] heart without angina pectoris Take 1 Tablet [...] (blood pressure) < 140/90,Coronary artery disease involving [place] coronary artery of [place] heart without angina pectoris Take 1 Tablet [...] NYHA class 2 (HCC),Coronary artery disease involving [place] coronary artery of [place] heart without angina pectoris TAKE 1/2 TAB BY MOUTH IN THE MORNING *HOLD IF BLOOD PRESSURE IS LESS THAN 110/70 45 Tablet 2 06/15/2023 Active Dorzolamide HCl-Timolol Mal 22.3-6.8 MG/ML Ophthalmic Solution (Cosopt Ocumeter Plus) INSTILL 1 DROP INTO THE LEFT EYE 3 TIMES DAILY 10 mL 0 07/16/2023 Active documented as of this encounter (statuses as of 07/25/2023) Active Problems Problem Noted Date Closed fracture [...] tricuspid regurgitation by prior ec hocardiogram 05/29/2023 Full code status 05/29/2023 Closed nondisplaced fracture of medial w [...] stenosis Hyperlipidemia Coronary artery disease invo lving [place] coronary artery of [place] heart without angina pectoris Moderate aortic stenosis by prior echoca rdiogram documented as of this encounter (statuses as of 07/25/2023) Resolved Problems Problem Noted Date Resolved Date [...] as of this encounter (statuses as of 07/25/2023) Immunizations Name Administration Dates Next Due COVID-19 mRNA, LNP-s, No Pre serve, 2-Dose Series ([employer]) 08/05/2021,12/12/2020,11/21/2020 COVID-19, LNP-s, No Preserve , Rashawn-sucrose, [...] Rich, DO [address] [place] [address] 09/26/2023 Office Visit Urology Vitaliy Maria MD [address] [place] [address] [place] [address] 12/17/2023 Office Visit Dermatology Keira De Jesus PA-C [address] [place] [address] [place] [address] 05/02/2024 Nurse Only Ancillary [place], Nurse Annual Wellness [address] [place] [address] [place] [phone] Pending Results Name Type Priority Associated Diagnoses Date /Time CBC WITH WBC DIFFERENTIAL AND ANEMIA REFLEX WORKUP Lab Routine Iron deficiency anemia, unspecified iron deficiency anemia type Chronic kidney disease, stage 3b (HCC) 07/25/2023 11:08 AM EDT ANEMIA REFLEX CHEMISTRY HOLD Lab Routine Iron deficiency anemia, unspecified iron deficiency anemia type Chronic kidney disease, stage 3b (HCC) 07/25/2023 11:08 AM EDT Scheduled Orders Name Type Priority Associated Diagnoses Orde r Schedule ANEMIA CBC Lab Routine Iron deficiency anemia, unspecified iron deficiency anemia type Chronic kidney disease, stage 3b (HCC) Ordered: 07/25/2023 DIFFERENTIAL, AUTOMATED Lab Routine Iron deficiency anemia, unspecified iron deficiency anemia type Chronic kidney disease, stage 3b (HCC) Ordered: 07/25/2023 Health Maintenance Due Date Last Done Comments Diabetic Foot Exam 04/22/2022 04/22/2021, 09/23/2019 COVID-19 Vaccine (5 - Pfizer series) 05/31/2022 04/05/2022, 08/05/2021, 12/12/2020, Additional history exists Influenza Vaccine (FLU shot) (#1) 2023 07/11/2022, 09/09/2021, 07/10/2020, Additional history exists Albumin/Creatinine Ratio 07/11/2023 07/11/2022, 08/30 HbA1c 07/15/2023 01/12/2023, 09/0 04/2022, 11/22/2021, Additional history exists CKD PHOS USE SMARTSET 54161 01/13/2024 01/12/2023, 0 05/04/2021 Depression Screening 04/30/2024 04/30/2023 CKD HGB USE SMARTSET 23134 07/13/202407/13, 07/13/2023, 06/29/2023, Additional history exists DTaP,Tdap,and Td Vaccines (2 [...] deficiency anemia, unspecified iron deficiency anemia type Encounter for long-term (current) use of medications Encounter for long-term (current) use of other medications Preventative health care Routine general medical examination at a health care facility Chronic kidney disease, stage 3b (HCC) Type 2 diabetes mellitus with stage 3b chronic kidney disease, without long-term current use of insulin (HCC) Mixed hyperlipidemia Weight loss Loss of weight 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 Heart failure, unspecified documented in this encounter Advance Directives Documents on File Type Date Recorded Patient Engineering Group Manager Expl anation Power of Shafting Cleaner 01/13/2019 POWER OF A TTORNEY Healthcare Agents on File Name Relationship Healthcare Agent Relationship Communication Ian Henriquez Other - (no specific identity) Health Care Agent (per Health Care Power of Shafting Cleaner document) Care Teams Stenotype Machine Operator Relationship Specialty Start Date End Date Jaelyn Pemberton MD [address] [place] [address] [place] [phone] PCP - General Family Medicine 08/20/19 documented as of this encounter
--- OUTSIDE RECORDS SUMMARY | 2023-09-23 21:04 | External Medical Summary ---
Author Name Unknown Address Unknown Organization K01:LAB[facility]ATORY [facility] [place] - [address] [facility] [address] Laboratory Report Ordering Provider Test Date Status KALEY KERNS 07/25/2023 11:15:10 Final Observation Date Value Abnormality Reference (Units ) Status SYNC LEUKOCYTES IN BLOOD BY AUTOMATED COUNT 07/25/2023 11:15:10 11.92 Above high normal 4.00-10.80 (K/uL) Final Segs 07/25/2023 11:15:10 81.9 Above high normal 40.0-75.0 (%) Final Lymphs % 07/25/2023 11:15:10 7.5 Below low normal 18.0-42.0 (%) Final Monos 07/25/2023 11:15:10 6.1 1.0-11.0 (%) Final Eosinophils 07/25/2023 11:15:10 3.5 0.0-6.0 (%) Final Basos 07/25/2023 11:15:10 0.1 0.0-2.0 (%) Final Immature Granulocyte, Percent 07/25/2023 11:15:10 0.9 0.0-2.0 (%) Final Absolute Segs 07/25/2023 11:15:10 9.76 Above high normal 1.80-7.70 (K/uL) Final Lymphs, absolute 07/25/2023 11:15:10 0.89 Below low normal 1.00-4.80 (K/ul) Final Monos, Abs 07/25/2023 11:15:10 0.73 0.00-1.10 (K/uL) Final Eos, Abs 07/25/2023 11:15:10 0.42 0.00-0.70 (K/uL) Final Basos, Abs 07/25/2023 11:15:10 0.01 0.00-0.20 (K/uL) Final Immature Granulocytes, Number 07/25/2023 11:15:10 0.11 0.00-0.20 (K/uL) Final Performing Location LAB[facility]ORY [facility] [place] - [facility] [address] [facility] [phone]
--- OUTSIDE RECORDS SUMMARY | 2023-09-23 21:04 | External Medical Summary | Summary of Care ---
Author Name Unknown Organization [facility] Address [address] [place] [address] Phone [phone] Care Team Providers Care Quad Stayer Name Role Phone Jaelyn Pemberton MD Primary Care Prov ider Reason for Visit * Reason Comments Outpatient Testing Encounter Details Date Type Department Care Team Description 07/25/2023 Laboratory Laboratory [address] [place] [id number] , Specimen Drop Off [address] [place] [phone] Iron deficiency anemia, unspecified iron deficiency anemia type; Encounter for long-term (current) use of medications; Preventative health care; Chronic kidney disease, stage 3b ([facility]); Type 2 diabetes mellitus with stage 3b chronic kidney disease, without long-term current use of insulin ([facility]); Mixed hyperlipidemia; Weight loss; 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[facility]) Allergies No known active allergiesdocumented as [...] Oral Tablet (Eliquis)Indications:C oronary artery disease involving [place] coronary artery of [place] heart without angina pectoris Take 1 Tablet [...] (blood pressure) < 140/90,Coronary artery disease involving [place] coronary artery of [place] heart without angina pectoris Take 1 Tablet [...] NYHA class 2 (HCC),Coronary artery disease involving [place] coronary artery of [place] heart without angina pectoris TAKE 1/2 TAB [...] stenosis Hyperlipidemia Coronary artery disease invo lving [place] coronary artery of [place] heart without angina pectoris Moderate aortic stenosis [...] mRNA, LNP-s, No Pre serve, 2-Dose Series (Float: [place]) 08/05/2021,12/12/2020,11/21/2020 COVID-19, LNP-s, No Preserve , Rashawn-sucrose, [...] Rich, DO [address] [place] [address] 09/26/2023 Office Visit Urology Vitaliy Maria MD [address] [place] [address] [place] [address] 12/17/2023 Office Visit Dermatology Keira De Jesus PA-C [address] [place] [address] [place] [address] 05/02/2024 Nurse Only Ancillary [place]oval[place], Nurse Annual Wellness [address] [place] [address] [place] [address] Scheduled Orders Name Type Priority Associated Diagnoses Orde r Schedule ANEMIA CBC Lab Routine Iron deficiency anemia, unspecified iron deficiency anemia type Chronic kidney disease, stage 3b (HCC) Ordered: 07/25/2023 DIFFERENTIAL, AUTOMATED Lab Routine Iron deficiency anemia, unspecified iron deficiency anemia type Chronic kidney disease, stage 3b (HCC) Ordered: 07/25/2023 ANEMIA REFLEX CHEMISTRY HOLD Lab Routine Iron [...] Additional history exists CKD PHOS USE SMARTSET 33829 01/13/2024 01/12/2023, 0 05/04/2021 Depression Screening 04/30/2024 04/30/2023 CKD HGB USE SMARTSET 60643 07/13/202407/13, 07/13/2023, 06/29/2023, Additional history exists DTaP,Tdap,and [...] Documents on File Type Date Recorded Patient Manager Commodities Expl anation Power of Shaft Mechanic 01/13/2019 POWER OF A TTORNEY Healthcare Agents on File Name Relationship Healthcare Agent Relationship Communication Ian Henriquez Other - (no specific identity) Health Care Agent (per Health Care Power of Shaft Mechanic document) Care Teams Quad Stayer Relationship Specialty Start Date End Date Jaelyn Pemberton MD [address] [place] [address] [place] [phone] PCP - General Family Medicine 08/20/19 documented as of this encounter
--- OUTSIDE RECORDS SUMMARY | 2023-09-23 21:04 | External Medical Summary | Summary of Care ---
Author Name Unknown Organization [facility] Address [address] [place] [address] Phone [phone] Care Team Providers Care Concrete Pump Operator Name Role Phone Jaelyn Pemberton MD Primary Care Prov ider Reason for Visit * Reason Onset Date Comments Care Home Visit 07/25/2023 Encounter Details Date Type Department Care Team Description 07/25/2023 Care Home Visit [facility] [address] [place] [address] Thao Fernandez PA-C [address] [place] [address] Decreased oral intake*; Loss of weight; Systolic CHF with reduced left ventricular function, NYHA class 2 (HCC); 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; Persistent atrial fibrillation (HCC) Allergies No known [...] Oral Tablet (Eliquis)Indications:C oronary artery disease involving sleetmute coronary artery of sleetmute heart without angina pectoris Take 1 Tablet [...] (blood pressure) < 140/90,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 Take 1 Tablet [...] NYHA class 2 (HCC),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 TAKE 1/2 TAB [...] stenosis Hyperlipidemia Coronary artery disease invo lving sleetmute coronary artery of sleetmute heart without angina pectoris Moderate aortic stenosis [...] mRNA, LNP-s, No Pre serve, 2-Dose Series ([employer]) 08/05/2021,12/12/2020,11/21/2020 COVID-19, LNP-s, No Preserve , Rashawn-sucrose, [...] Progress Notes * Thao Fernandez PA-C - 07/25/2023 11:23 AM EDT Name: Delio Padilla Date of :1935 TRANSITION EVENT: Type: Non-applicable Date: July 25 Code Status: No Code This note pertains to care provided at [facility]. Please see facility medical record for original note. This note is not to be edited or addended in [employer]. Editing or addending needs to occur in the facilities medical record. Subjective: Delio Padilla is a 88 year old male. Patient being seen for recheck visit Chief Complaint Patient presents with Care Home Visit HPI: pt has been under assessment for continued weakness, weight loss and decreased oral intake. Makes statements such as "Why don't you just let me ?" Pt now has IVF times one liter so far. Very difficult drawing labs on pt. Multiple attempts made. Pt having no pain issues. No chest pains, dyspnea, palpitations. No diarrhea or voiding issues. Vital signs remain stable. His Lasix is currently on hold. In facility counselling is ongoing. We have not adjusted pt's SSRI yet due to acute issues going on with possible MAKI. He is drinking is supplements. No sucidal thoughts or plans. Pt's POA did change pt's advanced directives from full code to DNR. CBC Results: Results for orders placed or performed in visit on 07/13/23 CBC Result Value Ref Range WBC 7.36 4.00 - 10.80 K/uL RBC 2.60 4.50 - 5.25 M/uL HGB 8.3 (L) 14.0 - 16.8 g/dL HCT 26.1 (L) 40.0 - 48.4 % MCV 100.4 82.0 - 99.5 fL MCH 31.9 27.0 - 34.0 pg MCHC 31.8 32.0 - 36.0 g/dL RDW 14.9 11.5 - 15.5 % PLT 230 140 - 400 K/uL MPV 10.3 6.6 - 11.1 fL nRBCs 0 <=0 /100 WBCs Hemoglobin Results: Lab Results Component Value Date/Time HGB - [facility] 8.3 (L) 07/13/2023 05:38 AM HGB - [facility] 8.6 (L) 06/29/2023 05:42 AM HGB - [facility] 8.2 (L) 06/15/2023 06:45 AM HGB - [facility] 11.6 (L) 05/11/2020 03:12 PM HGB - [facility] 11.4 (L) 03/31/2020 01:13 PM HGB - [facility] 12.8 (L) 08/20/2019 04:24 PM Basic Panel Results: Results for orders placed or performed in visit on 07/13/23 BASIC METABOLIC PANEL Result Value Ref Range BUN 33 (H) 6 - 20 mg/dL Creatinine 1.3 (H) 0.6 - 1.2 mg/dL Estimated Glomerular Filtration Rate 52 (L) >=60 mL/min Sodium 136 135 - 146 mmol/L Potassium 4.1 3.5 - 5.1 mmol/L Chloride 99 98 - 107 mmol/L CO2 24 22 - 32 mmol/L Anion Gap 13 7 - 15 mmol/L Glucose 109 70 - 120 mg/dL Calcium 8.3 (L) 8.4 - 10.2 mg/dL Creatinine Results: Lab Results Component Value Date/Time CREATININE - [facility] 1.3 (H) 07/13/2023 05:38 AM CREATININE - [facility] 1.2 06/15/2023 06:45 AM CREATININE - [facility] 1.1 06/06/2023 05:13 AM CREATININE - [facility] 1.3 (H) 08/10/2020 [...] Results Component Value Date/Time POTASSIUM - [facility] 4.1 07/13/2023 05:38 AM POTASSIUM - [facility] 4.4 06/15/2023 06:45 AM POTASSIUM - [facility] 4.6 06/06/2023 05:13 AM POTASSIUM - [facility] 5.0 08/10/2020 02:34 PM POTASSIUM - [facility] 3.6 05/11/2020 03:12 PM POTASSIUM - [facility] 4.4 03/31/2020 01:13 PM POTASSIUM-[facility] 4.2 05/22/2023 12:00 AM POTASSIUM-[facility] 5.1 10/05/2021 12:00 AM POTASSIUM-[facility] 3.7 03/11/2021 12:00 AM Sodium Results: Lab Results Component Value Date/Time SODIUM - [facility] 136 07/13/2023 05:38 AM SODIUM - [facility] 137 06/15/2023 06:45 AM SODIUM - [facility] 136 06/06/2023 05:13 AM SODIUM - [facility] 141 08/10/2020 02:34 [...] I05.0 Hyperlipidemia E78.5 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 I25.10 Moderate aortic [...] reduced left ventricular function, NYHA class 2 ([facility]) I50.20 Hiatal hernia K44.9 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 S/p left hip fracture Z87.81 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 episode ([facility]) F32.0 Persistent atrial fibrillation ([facility]) I48.19 Type 2 diabetes mellitus with stage 3b chronic kidney disease ([facility]) E11.22, N18.32 Chronic kidney disease, stage 3b ([facility]) N18.32 Closed nondisplaced fracture of medial wall of left acetabulum ([facility]) S32.475A Calculus of gallbladder without cholecystitis without obstruction K80.20 Closed fracture of left inferior pubic ramus ([facility]) S32.592A Closed fracture of sacrum with routine healing S32.10XD Calcification of aortic valve I35.9 Moderate aortic regurgitation with left ventricular dilation by prior echocardiogram I35.1, I51.7 Moderate mitral regurgitation by prior echocardiogram I34.0 Mild tricuspid regurgitation by prior echocardiogram I07.1 Full code status Z78.9 Closed fracture of superior ramus of left pubis with routine healing S32.512D Past Medical History: Diagnosis Date Aortic stenosis CAD (coronary artery disease) Chest pain DM (diabetes mellitus) ([facility]) DVT prophylaxis 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 LVEF 50 to 55%. LA moderately dilated. Severe calcification aortic valve. Moderate aortic regurgitation. Moderate . Moderate MR. Mild [facility] CABG, ARTERIAL, SINGLE 2000 COLONOSCOPY, DIAGNOSTIC (RECTUM) 09/09/2019 poor prep, repeat / COLONOSCOPY FLEXIBLE PROXIMAL DIAGNOSTIC performed by Filipe Hankins MD [facility] [address] COLONOSCOPY, DIAGNOSTIC (RECTUM) 09/10/2019 normal / COLONOSCOPY FLEXIBLE PROXIMAL DIAGNOSTIC performed by Filipe Hankins MD at ENDOSCOPY [facility] [address] EGD, FLEXIBLE, DIAGNOSTIC 07/21/2021 hiatal hernia / [facility] TOTAL HIP REPLACEMENT & PROSTHESIS [...] list as this cannot be edited in [employer]. Review of Systems: Constitutional ROS: + change in weight, + weakness, + fatigue and No fevers, sweats, or chills [...] reviewed the most recent facilities vitals. General: alert,bur looks fatigued no distress, well nourished and well developed [...] normal, no rashes or significant lesions ASSESSMENT: Decreased oral intake (Primary) IVF ongoing Will give another liter of IVF Obtrained CBC, BMP this morning. Awaiting results. Continue to hold lasix for now Dietary involved Loss of weight IVF ongoing Will give another liter of IVF Obtrained CBC, BMP this morning. Awaiting results. Continue to hold lasix for now Dietary involved Systolic CHF with reduced left ventricular function, NYHA class 2 (HCC) No acitve CHF at this time Continue to hold Lasix for now 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 Stable no chest pain Continue ASA 81mg daily and Lipitor 40mg HS Persistent atrial fibrillation (HCC) Stable rate Continue Eliquis 2.5mg BID PLAN: Reviewed cBC, BMP, Lytes and Continue present medication(s):as ordered. Long-Term Home Treatment Given: IVF as directed Electronically signed by: Thao Fernandez PA-C Over 45 minutes were spent in this visit more than half the time was spent counselling or coordinating care. documented in this encounter Plan of Treatment Upcoming Encounters Date Type Specialty Care Team Description 09/18/2023 Office Visit Cardiology Shorty Rich, DO [address] [place] [address] 09/26/2023 Office Visit Urology Vitaliy Maria MD [address] [place] [address] [place] [address] 12/17/2023 Office Visit Dermatology Keira De Jesus PA-C [address] [place] [address] [place] [phone] 05/02/2024 Nurse Only Ancillary [place], Nurse [facility] [address] [place] [address] [place] [id number] Health Maintenance Due Date Last Done Comments Diabetic Foot Exam 04/22/2022 04/22/2021, 09/23/2019 COVID-19 Vaccine (5 - Pfizer series) 05/31/2022 04/05/2022, 08/05/2021, 12/12/2020, Additional history exists Influenza Vaccine (FLU shot) (#1) 2023 07/11/2022, 09/09/2021, 07/10/2020, Additional history exists Albumin/Creatinine Ratio 07/11/2023 07/11/2022, 08/30 HbA1c 07/15/2023 01/12/2023, 04/2022, 11/22/2021, Additional history exists CKD PHOS USE SMARTSET 04415 01/13/2024 01/12/2023, 0 05/04/2021 Depression Screening 04/30/2024 04/30/2023 CKD HGB USE SMARTSET 87110 07/13/202407/13, 07/13/2023, 06/29/2023, Additional history exists DTaP,Tdap,and [...] as of this encounter Visit Diagnoses Diagnosis Decreased oral intake- Primary Other symptoms concerning nutrition, metabolism, and development Loss of weight Systolic CHF with reduced left ventricular function, NYHA class 2 (HCC) Unspecified systolic heart failure 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 Persistent atrial fibrillation (HCC) Atrial fibrillation documented in this encounter Advance Directives Documents on File Type Date Recorded Patient Associate Sales Manager Expl anation Power of Hand Glove Cleaner 01/13/2019 POWER OF A TTORNEY Healthcare Agents on File Name Relationship Healthcare Agent Relationship Communication Ian Henriquez Other - (no specific identity) Health Care Agent (per Health Care Power of Hand Glove Cleaner document) Care Teams Concrete Pump Operator Relationship Specialty Start Date End Date Jaelyn Pemberton MD [address] [place] [address] [place] [phone] PCP - General Family Medicine 08/20/19 documented as of this encounter
--- OUTSIDE RECORDS SUMMARY | 2023-09-23 21:04 | External Medical Summary ---
Author Name Unknown Address Unknown Organization K01:[facility] [place] [address] [place] [address] Laboratory Report Ordering Provider Test Date Status KALEY KERNS 07/27/2023 05:03:00 Final Observation Date Value Abnormality Reference (Units ) Status BUN 07/27/2023 05:03:00 40 Above high normal 6-20 (mg/dL) Final Creatinine 07/27/2023 05:03:00 1.0 0.6-1.2 (mg/dL) Final Glomerular filtration rate/1.73 sq M.predicted [Volume Rate/Area] in Serum, Plasma or Blood by Creatinine-based formula (CKD-EPI) 07/27/2023 05:03:00 69 >=60 (mL/min) Final eGFR is calculated based on the CKD-EPI 2020 equation SODIUM 07/27/2023 05:03:00 137 135-146 (m mol/L) Final Potassium 07/27/2023 05:03:00 4.3 3.5-5.1 (m mol/L) Final Cl 07/27/2023 05:03:00 106 98-107 (mm ol/L) Final CO2 07/27/2023 05:03:00 20 Below low normal 22- 32 (mmol/L) Final Anion gap 07/27/2023 05:03:00 11 7-15 (mmol /L) Final Glucose 07/27/2023 05:03:00 105 70-120 (mg /dL) Final Calcium 07/27/2023 05:03:00 7.9 Below low normal 8.4 -10.2 (mg/dL) Final Performing Location [facility] [place] [address] [place] [address]
--- OUTSIDE RECORDS SUMMARY | 2023-09-23 21:04 | External Medical Summary | Summary of Care ---
Author Name Unknown Organization [facility] Address [address] [place] [address] Phone [phone] Care Team Providers Care Security Professional Name Role Phone Jaelyn Pemberton MD Primary Care Prov ider Reason for Visit * Reason Comments Outpatient Testing Encounter Details Date Type Department Care Team Description 07/25/2023 Laboratory Laboratory [address] [place] [id number] , Specimen Drop Off [address] [place] [id number] Iron deficiency anemia, unspecified iron deficiency anemia type; Encounter for long-term (current) use of medications; Preventative health care; Chronic kidney disease, stage 3b (HCC); Type 2 diabetes mellitus with stage 3b chronic kidney disease, without long-term current use of insulin ([facility]); Mixed hyperlipidemia; Weight loss; 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[facility]); Loss of weight Allergies No known active allergiesdocumented as of [...] Oral Tablet (Eliquis)Indications:C oronary artery disease involving kas[place] coronary artery of kas[place] heart without angina pectoris Take 1 Tablet [...] (blood pressure) < 140/90,Coronary artery disease involving [place] coronary artery of [place] heart without angina pectoris Take 1 Tablet [...] NYHA class 2 (HCC),Coronary artery disease involving [place] coronary artery of kas[place] heart without angina pectoris TAKE 1/2 TAB [...] stenosis Hyperlipidemia Coronary artery disease invo lving [place] coronary artery of [place] heart without angina pectoris Moderate aortic stenosis [...] mRNA, LNP-s, No Pre serve, 2-Dose Series ([employer]) 08/05/2021,12/12/2020,11/21/2020 COVID-19, LNP-s, No Preserve , Rashawn-sucrose, [...] Cardiology Shorty Rich, DO [address] [place] [address] 09/26/2023 Office Visit Urology Vitaliy Maria MD [address] [place] [address] 12/17/2023 Office Visit Dermatology Keira De Jesus PA-C [address] [place] [address] [place] [phone] 05/02/2024 Nurse Only Ancillary [place], Nurse Annual [facility] [address] [place] [address] [place] [phone] Pending Results Name Type Priority Associated Diagnoses Date /Time BASIC METABOLIC PANEL Lab Routine Loss of weight 07/25/2023 11:15 AM EDT CBC WITH WBC DIFFERENTIAL Lab Routine Loss of weight 07/25/2023 11:15 AM EDT CBC Lab Routine Loss of weight 07/25/2023 11:15 AM EDT DIFFERENTIAL, AUTOMATED Lab Routine Loss of weight 07/25/2023 11:15 AM EDT Scheduled Orders Name Type Priority [...] Additional history exists Albumin/Creatinine Ratio 07/11/2023 07/11/2022, /2 04/2019 HbA1c 07/15/2023 01/12/2023, 09/0 04/2022, 11/22/2021, Additional history exists CKD PHOS USE SMARTSET 33186 01/13/2024 01/12/2023, 0 05/04/2021 Depression Screening 04/30/2024 04/30/2023 CKD HGB USE SMARTSET 84117 07/13/202407/13, 07/13/2023, 06/29/2023, Additional history exists DTaP,Tdap,and [...] to congenital heart disease Heart failure, unspecified Loss of weight documented in this encounter Advance Directives Documents on File Type Date Recorded Patient Software Integration Developer Expl anation Power of Telegraphic Typewriter Operator 01/13/2019 POWER OF A TTORNEY Healthcare Agents on File Name Relationship Healthcare Agent Relationship Communication Ian Henriquez Other - (no specific identity) Health Care Agent (per Health Care Power of Telegraphic Typewriter Operator document) Care Teams Security Professional Relationship Specialty Start Date End Date Jaelyn Pemberton MD [address] [place] [address] [place] [phone] PCP - General Family Medicine 08/20/19 documented as of this encounter
--- OUTSIDE RECORDS SUMMARY | 2023-09-23 21:04 | External Medical Summary | Summary of Care ---
Author Name Unknown Organization [facility] Address [address] [place] [address] Phone [phone] Care Team Providers Care Supervisor Stripping Name Role Phone Jaelyn Pemberton MD Primary Care Prov ider Reason for Visit * Reason Onset Date Comments [facility] Visit 07/26/2023 Encounter Details Date Type Department Care Team Description 07/26/2023 [facility] Visit [facility] [address] [place] [address] Thao Fernandez PA-C [address] [place] [address] Loss of weight*; Decreased oral intake; Systolic CHF with reduced left ventricular function, NYHA class 2 (HCC); Hypertension goal BP (blood pressure) < 140/90; Adjustment disorder with depressed mood; Leukocytosis, unspecified type Allergies No known active allergiesdocumented as of this encounter (statuses as of 07/26/2023) Medications Medication Sig Dispensed Refills Start Date [...] Oral Tablet (Eliquis)Indications:C oronary artery disease involving [place] coronary artery of [place] heart without angina pectoris Take 1 Tablet [...] (blood pressure) < 140/90,Coronary artery disease involving [place] coronary artery of [place] heart without angina pectoris Take 1 Tablet [...] NYHA class 2 (HCC),Coronary artery disease involving [place] coronary artery of [place] heart without angina pectoris TAKE 1/2 TAB BY MOUTH IN THE MORNING *HOLD IF BLOOD PRESSURE IS LESS THAN 110/70 45 Tablet 2 06/15/2023 Active Dorzolamide HCl-Timolol Mal 22.3-6.8 MG/ML Ophthalmic Solution (Cosopt Ocumeter Plus) INSTILL 1 DROP INTO THE LEFT EYE 3 TIMES DAILY 10 mL 0 07/16/2023 Active documented as of this encounter (statuses as of 07/26/2023) Active Problems Problem Noted Date DNR (do [...] stenosis Hyperlipidemia Coronary artery disease invo lving [place] coronary artery of [place] heart without angina pectoris Moderate aortic stenosis by prior echoca rdiogram documented as of this encounter (statuses as of 07/26/2023) Resolved Problems Problem Noted Date Resolved Date [...] as of this encounter (statuses as of 07/26/2023) Immunizations Name Administration Dates Next Due COVID-19 [...] Progress Notes * Thao Fernandez PA-C - 07/26/2023 11:24 AM EDT Name: Delio Padilla Date of :1935 TRANSITION EVENT: Type: Non-applicable Date: July 26 Code Status: No Code This note pertains to care provided at [facility]. Please see facility medical record for original note. This note is not to be edited or addended in [employer]. Editing or addending needs to occur in the facilities medical record. Subjective: Delio Padilla is a 88 year old male. Patient being seen for recheck visit Chief Complaint Patient presents with [facility] Visit HPI: Pt has been under assessment for significant weight loss, decreased oral intake and fatigue with malaise over past two weeks. Dietary has been actively involved as has in facility counsellor. Heis drinking his dietary supplements. Pt is having no pain issues. Has been more irritable. Having more difficuilty participating in Therapy. Has had low BP readings with some dizziness despite BP meds with parameters. Pt's Lasix is currently held. Pt had two liters of IVF over past day and a half. Actually appears more alert. More conversant but does have depressed affect. He is currently on Zoloft 25mg daily. Pt has hematology appt next week to discuss IV iron infusions for his persistent irondeficiency anemia despite oral iron Rx. Vital signs currently stable. Pt having no diarrhea, UTI signs or symptoms. CBC Results: Results for orders placed or [...] Results Component Value Date/Time [facility] 103 07/25/2023 11:15 AM [facility] 99 07/13/2023 05:38 AM [facility] 105 06/15/2023 06:45 AM [facility] 106 08/10/2020 02:34 PM [facility] 101 05/11/2020 03:12 PM [facility] 100 03/31/2020 01:13 PM . Patient Active Problem List Diagnosis Code Hypertension goal BP (blood pressure) < 140/90 I10 Mitral stenosis I05.0 Hyperlipidemia E78.5 Coronary artery disease involving [place] coronary artery of [place] heart without angina pectoris I25.10 Moderate aortic [...] NYHA class 2 ([facility]) I50.20 Hiatal hernia K44.9 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 S/p left hip fracture Z87.81 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 episode ([facility]) F32.0 Persistent atrial fibrillation ([facility]) I48.19 Type 2 diabetes mellitus with stage 3b chronic kidney disease ([facility]) E11.22, N18.32 Chronic kidney disease, stage 3b ([facility]) N18.32 Closed nondisplaced fracture of medial wall of left acetabulum ([facility]) S32.475A Calculus of gallbladder without cholecystitis without obstruction K80.20 Closed fracture of left inferior pubic ramus ([facility]) S32.592A Closed fracture of sacrum [...] artery disease) Chest pain DM (diabetes mellitus) ([facility]) DVT prophylaxis 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 LVEF 50 to 55%. LA moderately dilated. Severe calcification aortic valve. Moderate aortic regurgitation. Moderate . Moderate MR. Mild TR. [facility] CABG, ARTERIAL, SINGLE 2000 COLONOSCOPY, DIAGNOSTIC (RECTUM) 09/09/2019 poor prep, repeat / COLONOSCOPY FLEXIBLE PROXIMAL DIAGNOSTIC performed by Filipe Hankins MD [facility] COLONOSCOPY, DIAGNOSTIC (RECTUM) 09/10/2019 normal / COLONOSCOPY FLEXIBLE PROXIMAL DIAGNOSTIC performed by Filipe Hankins MD at ENDOSCOPY [facility] EGD, FLEXIBLE, DIAGNOSTIC 07/21/2021 hiatal hernia / [facility] TOTAL HIP REPLACEMENT & PROSTHESIS [...] list as this cannot be edited in CloudJay. Review of Systems: Constitutional ROS: No change in weight, slight less weakness, slight less atigue and No fevers, sweats, or chills Nose [...] Conjunctiva are pale and non-injected, sclera clear Nose: no mucosal [...] and no masses or organomegaly Extremities: no joint deformities, effusion, or inflammation, no edema, no clubbing, no cyanosis Neuro Exam: alert with fluent speech, no focal motor/sensory deficits Skin: skin color, texture, turgor are normal, no rashes or significant lesions ASSESSMENT: Loss of weight (Primary) Could be due to depression Discussed with pt Will increase Zoloft to 50mg daily Continue to follow with dietary Weights every other day Decreased oral intake Could be due to depression Discussed with pt Will increase Zoloft to 50mg daily Continue to follow with dietary Weights every other day Contniue to be followed by dietary Systolic CHF with reduced left ventricular function, NYHA class 2 (HCC) Stable no active CHF Will continue to hold Lasix for now Will obtain weights QOD Hypertension goal BP (blood pressure) < 140/90 At goal Continue Losartan 25mg daily and Coreg 3.125mg BID with parameters Adjustment disorder with depressed mood Pt appears depressed Discussed with pt Will increase Zoloft to 50mg daily Will place Psych consult Leukocytosis, unspecified type Will obtain urine dip and C&S if dip is positive Repeat CBC in AM PLAN: Reviewed CBC, BMP, Lytes and Continue present medication(s):as ordered. [facility] Home Treatment Given: as above Electronically signed by: Thao Fernandez PA-C Over 45 minutes were spent in this visit more than half the time was spent counselling or coordinating care. documented in this encounter Plan of Treatment Upcoming Encounters Date Type Specialty Care Team Description 08/03/2023 Office Visit Hematology Oncology Tez Garcia MD [address] [place], [place] [id number] 09/18/2023 Office Visit Cardiology Shorty Rich, [address] [place] [address] 09/26/2023 Office Visit Urology Vitaliy Maria MD [address] [place] [address] [place] [address] 12/17/2023 Office Visit Dermatology Keira De Jesus PA-C [address] [place] [address] [place] [address] 05/02/2024 Nurse Only Ancillary Movalley, Nurse Annual Wellness [address] [place] [address] [place] [address] Health Maintenance Due Date Last Done Comments Diabetic Foot Exam 04/22/2022 04/22/2021, 09/23/2019 COVID-19 Vaccine (5 - Pfizer series) 05/31/2022 04/05/2022, 08/05/2021, 12/12/2020, Additional history exists Influenza Vaccine (FLU shot) (#1) 2023 07/11/2022, 09/09/2021, 07/10/2020, Additional history exists Albumin/Creatinine Ratio 07/11/2023 07/11/2022, 08/30 HbA1c 07/15/2023 01/12/2023, 0904/2022, 11/22/2021, Additional history exists CKD PHOS USE SMARTSET 31506 01/13/2024 01/12/2023, 0 05/04/2021 Depression Screening 04/30/2024 04/30/2023 CKD HGB USE SMARTSET 46344 07/25/202407/25, 07/25/2023, 07/13/2023, Additional history exists DTaP,Tdap,and [...] Other symptoms concerning nutrition, metabolism, and development Systolic CHF with reduced left ventricular function, NYHA class 2 (HCC) Unspecified systolic heart failure Hypertension goal BP (blood pressure) < 140/90 Unspecified essential hypertension Adjustment disorder with depressed mood Leukocytosis, unspecified type documented in this encounter Advance Directives Documents on File Type Date Recorded Patient Client Services Account Manager Expl anation Power of Key Entry Operator 01/13/2019 POWER OF A TTORNEY Healthcare Agents on File Name Relationship Healthcare Agent Relationship Communication Ian Henriquez Other - (no specific identity) Health Care Agent (per Health Care Power of Key Entry Operator document) Care Teams Supervisor Stripping Relationship Specialty Start Date End Date Jaelyn Pemberton MD [address] [place] [address] [place] [address] PCP - General Family Medicine 08/20/19 documented as of this encounter
--- OUTSIDE RECORDS SUMMARY | 2023-09-23 21:04 | External Medical Summary ---
Author Name Unknown Address Unknown Organization K01:[facility] - [address] [facility] [place] [address] Laboratory Report Ordering Provider Test Date Status KALEY KERNS 07/27/2023 05:03:00 Final Observation Date Value Abnormality Reference (Units ) Status SYNC LEUKOCYTES IN BLOOD BY AUTOMATED COUNT 07/27/2023 05:03:00 9.40 4.00-10.80 (K/uL) Final Segs 07/27/2023 05:03:00 74.2 40.0-75.0 (%) Final Lymphs % 07/27/2023 05:03:00 13.7 Below low normal 18.0-42.0 (%) Final Monos 07/27/2023 05:03:00 7.3 1.0-11.0 (%) Final Eosinophils 07/27/2023 05:03:00 3.8 0.0-6.0 (%) Final Basos 07/27/2023 05:03:00 0.1 0.0-2.0 (%) Final Immature Granulocyte, Percent 07/27/2023 05:03:00 0.9 0.0-2.0 (%) Final Absolute Segs 07/27/2023 05:03:00 6.97 1.80-7.70 (K/uL) Final Lymphs, absolute 07/27/2023 05:03:00 1.29 1.00-4.80 (K/ul) Final Monos, Abs 07/27/2023 05:03:00 0.69 0.00-1.10 (K/uL) Final Eos, Abs 07/27/2023 05:03:00 0.36 0.00-0.70 (K/uL) Final Basos, Abs 07/27/2023 05:03:00 0.01 0.00-0.20 (K/uL) Final Immature Granulocytes, Number 07/27/2023 05:03:00 0.08 0.00-0.20 (K/uL) Final Performing Location [facility] - [facility] [place] [address]
--- OUTSIDE RECORDS SUMMARY | 2023-09-23 21:04 | External Medical Summary | Summary of Care ---
Author Name Unknown Organization [facility] Address [address] [place] [address] Phone [phone] Care Team Providers Care Brands Editor Name Role Phone Jaelyn Pemberton MD Primary Care Prov ider Reason for Visit * Reason Comments Outpatient Testing Encounter Details Date Type Department Care Team Description 07/25/2023 Laboratory Laboratory [address] [place] [id number] , Specimen Drop Off [address] [place] [phone] Iron deficiency anemia, unspecified iron deficiency anemia type; Encounter for long-term (current) use of medications; Preventative health care; Chronic kidney disease, stage 3b ([facility]); Type 2 diabetes mellitus with stage 3b chronic kidney disease, without long-term current use of insulin ([facility]); Mixed hyperlipidemia; Weight loss; 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[facility]) Allergies No known active allergiesdocumented as [...] Oral Tablet (Eliquis)Indications:C oronary artery disease involving platinum coronary artery of platinum heart without angina pectoris Take 1 Tablet [...] (blood pressure) < 140/90,Coronary artery disease involving platinum coronary artery of platinum heart without angina pectoris Take 1 Tablet [...] NYHA class 2 (HCC),Coronary artery disease involving platinum coronary artery of platinum heart without angina pectoris TAKE 1/2 TAB [...] stenosis Hyperlipidemia Coronary artery disease invo lving platinum coronary artery of platinum heart without angina pectoris Moderate aortic stenosis [...] mRNA, LNP-s, No Pre serve, 2-Dose Series (Fuzz) 08/05/2021,12/12/2020,11/21/2020 COVID-19, LNP-s, No Preserve , Rashawn-sucrose, [...] Rich, DO [address] [place] [address] 09/26/2023 Office Visit Urology Vitaliy Maria MD [address] [place] [address] [place] [address] 12/17/2023 Office Visit Dermatology Keira De Jesus PA-C [address] [place] [address] [place] [address] 05/02/2024 Nurse Only Ancillary Movalley, Nurse Annual Wellness [address] [place] [address] [place] [address] Scheduled Orders Name Type Priority Associated Diagnoses [...] Additional history exists CKD PHOS USE SMARTSET 81545 01/13/2024 01/12/2023, 0 05/04/2021 Depression Screening 04/30/2024 04/30/2023 CKD HGB USE SMARTSET 43152 07/13/202407/13, 07/13/2023, 06/29/2023, Additional history exists DTaP,Tdap,and [...] Documents on File Type Date Recorded Patient Digital Design 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
--- OUTSIDE RECORDS SUMMARY | 2023-09-23 21:04 | External Medical Summary | Summary of Care ---
Author Name Unknown Organization [facility] Address [address] [place] [address] Phone [phone] Care Team Providers Care Line Construction Superintendent Name Role Phone Jaelyn Pemberton MD Primary Care Prov ider Reason for Visit * Reason Comments Outpatient Testing Encounter Details Date Type Department Care Team Description 07/25/2023 Laboratory Laboratory [address] [place] [id number] , Specimen Drop Off [address] [place] [phone] Iron deficiency anemia, unspecified iron deficiency anemia type; Encounter for long-term (current) use of medications; Preventative health care; Chronic kidney disease, stage 3b ([facility]); Type 2 diabetes mellitus with stage 3b chronic kidney disease, without long-term current use of insulin ([facility]); Mixed hyperlipidemia; Weight loss; 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[facility]) Allergies No known active allergiesdocumented as of [...] Oral Tablet (Eliquis)Indications:C oronary artery disease involving [place] coronary artery of [place] heart without angina pectoris Take 1 Tablet [...] (blood pressure) < 140/90,Coronary artery disease involving [place] coronary artery of [place] heart without angina pectoris Take 1 Tablet [...] NYHA class 2 (HCC),Coronary artery disease involving [place] coronary artery of [place] heart without angina pectoris TAKE 1/2 TAB [...] stenosis Hyperlipidemia Coronary artery disease invo lving [place] coronary artery of [place] heart without angina pectoris Moderate aortic stenosis [...] mRNA, LNP-s, No Pre serve, 2-Dose Series ([employer]) 08/05/2021,12/12/2020,11/21/2020 COVID-19, LNP-s, No Preserve , Rashawn-sucrose, [...] Rich, DO [address] [place] [address] 09/26/2023 Office Visit Urology Vitaliy Maria MD [address] [place] [address] [place] [address] 12/17/2023 Office Visit Dermatology Keira De Jesus PA-C [address] [place] [address] [place] [address] 05/02/2024 Nurse Only Ancillary Movalley, Nurse Annual Wellness [address] [place] [address] [place] [address] Pending Results Name Type Priority Associated Diagnoses Date /Time IRON SCREEN, INCLUDING TIBC Lab Routine Iron deficiency anemia, unspecified iron deficiency anemia type Encounter for long-term (current) use of medications 07/25/2023 11:08 AM EDT FERRITIN Lab Routine Iron deficiency anemia, unspecified iron deficiency anemia type Encounter for long-term (current) use of medications 07/25/2023 11:08 AM EDT VITAMIN B12 Lab Routine Encounter for long-term (current) use of medications Preventative health care 07/25/2023 11:08 AM EDT RENAL FUNCTION PANEL Lab Routine Chronic kidney disease, stage 3b (HCC) Type 2 diabetes mellitus with stage 3b chronic kidney disease, without long-term current use of insulin (HCC) 07/25/2023 11:08 AM EDT LDL CHOLESTEROL (DIRECT MEASURE) Lab Routine Mixed hyperlipidemia 07/25/2023 11:08 AM EDT CBC WITH WBC DIFFERENTIAL AND ANEMIA REFLEX [...] Additional history exists CKD PHOS USE SMARTSET 96515 01/13/2024 01/12/2023, 0 05/04/2021 Depression Screening 04/30/2024 04/30/2023 CKD HGB USE SMARTSET 86901 07/13/202407/13, 07/13/2023, 06/29/2023, Additional history exists DTaP,Tdap,and [...] Documents on File Type Date Recorded Patient Boat Pilot Expl anation Power of Over The Road Driver 01/13/2019 POWER OF A TTORNEY Healthcare Agents on File Name Relationship Healthcare Agent Relationship Communication Ian Henriquez Other - (no specific identity) Health Care Agent (per Health Care Power of Over The Road Driver document) Care Teams Line Construction Superintendent Relationship Specialty Start Date End Date Jaelyn Pemberton MD [address] [place] [address] [place] [address] PCP - General Family Medicine 08/20/19 documented as of this encounter
--- OUTSIDE RECORDS SUMMARY | 2023-09-23 21:04 | External Medical Summary | Summary of Care ---
Author Name Unknown Organization [facility] Address [address] [place] [address] Phone [phone] Care Team Providers Care Television Agent Name Role Phone Jaelyn Pemberton MD Primary Care Prov ider Reason for Visit * Reason Comments Outpatient Testing Encounter Details Date Type Department Care Team Description 07/25/2023 Laboratory Laboratory [address] [place] [id number] , Specimen Drop Off [address] [place] [phone] Iron deficiency anemia, unspecified iron deficiency anemia type; Encounter for long-term (current) use of medications; Preventative health care; Chronic kidney disease, stage 3b ([facility]); Type 2 diabetes mellitus with stage 3b chronic kidney disease, without long-term current use of insulin ([facility]); Mixed hyperlipidemia; Weight loss; 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[facility]) Allergies No known active allergiesdocumented as of [...] Oral Tablet (Eliquis)Indications:C oronary artery disease involving hughes coronary artery of hughes heart without angina pectoris Take 1 Tablet [...] (blood pressure) < 140/90,Coronary artery disease involving hughes coronary artery of hughes heart without angina pectoris Take 1 Tablet [...] NYHA class 2 (HCC),Coronary artery disease involving [place] coronary artery of hughes heart without angina pectoris TAKE 1/2 TAB [...] stenosis Hyperlipidemia Coronary artery disease invo lving [place]hes coronary artery of hughes heart without angina pectoris Moderate aortic stenosis [...] mRNA, LNP-s, No Pre serve, 2-Dose Series ([employer]) 08/05/2021,12/12/2020,11/21/2020 COVID-19, LNP-s, No Preserve , Rashawn-sucrose, [...] Rich, DO [address] [place] [address] 09/26/2023 Office Visit Urology Vitaliy Maria MD [address] [place] [address] [place] [address] 12/17/2023 Office Visit Dermatology Keira De Jesus PA-C [address] [place] [address] [place] [address] 05/02/2024 Nurse Only Ancillary Movalley, Nurse Annual Wellness [address] [place] [address] [place] [phone] Pending Results Name Type Priority Associated Diagnoses [...] disease, without long-term current use of insulin ([facility]) 07/25/2023 11:08 AM EDT LDL CHOLESTEROL (DIRECT MEASURE) Lab Routine Mixed hyperlipidemia 07/25/2023 11:08 AM EDT HEMOGLOBIN A1C Lab Routine Type 2 diabetes mellitus with stage 3b chronic kidney disease, without long-term current use of insulin (HCC) 07/25/2023 11:08 AM EDT CBC WITH WBC DIFFERENTIAL AND ANEMIA REFLEX WORKUP Lab Routine Iron deficiency anemia, unspecified iron deficiency anemia type Chronic kidney disease, stage 3b (HCC) 07/25/2023 11:08 AM EDT ANEMIA CBC Lab Routine Iron deficiency anemia, unspecified iron deficiency anemia type Chronic kidney disease, stage 3b (HCC) 07/25/2023 11:08 AM EDT DIFFERENTIAL, AUTOMATED Lab Routine Iron deficiency anemia, unspecified iron deficiency anemia type Chronic kidney disease, stage 3b (HCC) 07/25/2023 11:08 AM EDT ANEMIA REFLEX CHEMISTRY HOLD Lab Routine Iron deficiency anemia, unspecified iron deficiency anemia type Chronic kidney disease, stage 3b (HCC) 07/25/2023 11:08 AM EDT Health Maintenance Due Date Last Done Comments Diabetic Foot Exam 04/22/2022 04/22/2021, 09/23/2019 COVID-19 Vaccine (5 - Pfizer series) 05/31/2022 04/05/2022, 08/05/2021, 12/12/2020, Additional history exists Influenza Vaccine (FLU shot) (#1) 2023 07/11/2022, 09/09/2021, 07/10/2020, Additional history exists Albumin/Creatinine Ratio 07/11/2023 07/11/2022, 08/30 HbA1c 07/15/2023 01/12/2023, 09/0 04/2022, 11/22/2021, Additional history exists CKD PHOS USE SMARTSET 74480 01/13/2024 01/12/2023, 0 05/04/2021 Depression Screening 04/30/2024 04/30/2023 CKD HGB USE SMARTSET 09448 07/13/202407/13, 07/13/2023, 06/29/2023, Additional history exists DTaP,Tdap,and [...] Documents on File Type Date Recorded Patient Handbag Operator Expl anation Power of Project Construction Manager 01/13/2019 POWER OF A TTORNEY Healthcare Agents on File Name Relationship Healthcare Agent Relationship Communication Ian Henriquez Other - (no specific identity) Health Care Agent (per Health Care Power of Project Construction Manager document) Care Teams Television Agent Relationship Specialty Start Date End Date Jaelyn Pemberton MD [address] [place] [address] [place] [address] PCP - General Family Medicine 08/20/19 documented as of this encounter
--- OUTSIDE RECORDS SUMMARY | 2023-09-23 21:04 | External Medical Summary | Summary of Care ---
Author Name Unknown Organization [facility] Address [address] [place] [address] Phone [phone] Care Team Providers Care Tap Builder Name Role Phone Jaelyn Pemberton MD Primary Care Prov ider Reason for Visit * Reason Comments Outpatient Testing Encounter Details Date Type Department Care Team Description 07/25/2023 Laboratory Laboratory [address] [place] [phone] , Specimen Drop Off [address] [place] [id number] Iron deficiency anemia, unspecified iron deficiency anemia type; Encounter for long-term (current) use of medications; Preventative health care; Chronic kidney disease, stage 3b (HCC); Type 2 diabetes mellitus with stage 3b chronic kidney disease, without long-term current use of insulin ([facility]); Mixed hyperlipidemia; Weight loss; 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[facility]); Loss of weight Allergies No known [...] Oral Tablet (Eliquis)Indications:C oronary artery disease involving [place] coronary artery of [place] heart without angina pectoris Take 1 Tablet [...] (blood pressure) < 140/90,Coronary artery disease involving [place] coronary artery of [place] heart without angina pectoris Take 1 Tablet [...] NYHA class 2 (HCC),Coronary artery disease involving [place] coronary artery of [place] heart without angina pectoris TAKE 1/2 TAB [...] stenosis Hyperlipidemia Coronary artery disease invo lving [place] coronary artery of [place] heart without angina pectoris Moderate aortic stenosis [...] mRNA, LNP-s, No Pre serve, 2-Dose Series ([employer]) 08/05/2021,12/12/2020,11/21/2020 COVID-19, LNP-s, No Preserve , Rashawn-sucrose, [...] Cardiology Shorty Rich, DO [address] [place] [address] 09/26/2023 Office Visit Urology Vitaliy Maria MD [address] [place] [address] [place] [address] 12/17/2023 Office Visit Dermatology Keira De Jesus PA-C [address] [place] [address] [place] [address] 05/02/2024 Nurse Only Ancillary [place], Nurse Annual Wellness [address] [place] [address] [place] [phone] Pending Results Name Type Priority Associated Diagnoses [...] Additional history exists CKD PHOS USE SMARTSET 92851 01/13/2024 01/12/2023, 0 05/04/2021 Depression Screening 04/30/2024 04/30/2023 CKD HGB USE SMARTSET 05890 07/13/202407/13, 07/13/2023, 06/29/2023, Additional history exists DTaP,Tdap,and [...] Documents on File Type Date Recorded Patient 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
--- OUTSIDE RECORDS SUMMARY | 2023-09-23 21:04 | External Medical Summary ---
Author Name Unknown Address Unknown Organization K01:[facility] [place] - [address] [place] [address] Laboratory Report Ordering Provider Test Date Status KALEY KERNS 07/27/2023 05:03:00 Final Observation Date Value Abnormality Reference (Units ) Status WBC, Total 07/27/2023 05:03:00 9.40 4.00-10.80 (K/uL) Final RBC 07/27/2023 05:03:00 2.30 4.50-5.25 (M/uL) Final Hemoglobin 07/27/2023 05:03:00 7.1 Below low normal 14.0-16.8 (g/dL) Final HCT 07/27/2023 05:03:00 23.0 Below low normal 40.0-48.4 (%) Final MCV 07/27/2023 05:03:00 100.0 82.0-99.5 (fL) Final MCH 07/27/2023 05:03:00 30.9 27.0-34.0 (pg) Final MCHC 07/27/2023 05:03:00 30.9 32.0-36.0 (g/dL) Final RDW 07/27/2023 05:03:00 15.7 11.5-15.5 (%) Final Platelets 07/27/2023 05:03:00 278 140-400 (K/uL) Final MPV 07/27/2023 05:03:00 10.3 6.6-11.1 (fL) Final Nucleated erythrocytes/100 leukocytes [Ratio] in Blood by Automated count 07/27/2023 05:03:00 0 <=0 (/100 WBCs) Final Performing Location [facility] [place] - [address] [place] [address]
--- OUTSIDE RECORDS SUMMARY | 2023-09-23 21:04 | External Medical Summary | Summary of Care ---
Author Name Unknown Organization [facility] Address [address] [place] [address] Phone [phone] Care Team Providers Care Wiring Technician Name Role Phone Jaelyn Pemberton MD Primary Care Prov ider Encounter Details Date Type Department Care Team Description 07/27/2023 Orders Only Lab Mobile Phlebotomy [facility] [address] [place] [address] Angel Coronel MD [address] [place] [address] [place] [phone] Leukocytosis*; Chronic kidney disease (CKD); Loss of weight Allergies No known active [...] Oral Tablet (Eliquis)Indications:C oronary artery disease involving [place] coronary artery of [place] heart without angina pectoris Take 1 Tablet [...] (blood pressure) < 140/90,Coronary artery disease involving [place] coronary artery of [place] heart without angina pectoris Take 1 Tablet [...] NYHA class 2 (HCC),Coronary artery disease involving [place] coronary artery of [place] heart without angina pectoris TAKE 1/2 TAB [...] stenosis Hyperlipidemia Coronary artery disease invo lving [place] coronary artery of [place] heart without angina pectoris Moderate aortic stenosis [...] Encounters Date Type Specialty Care Team Description 07/27/2023 Laboratory Laboratory Processing [address] [place] [address] Arrived 08/03/2023 Office Visit Hematology Oncology Tez Garcia MD [address] [facility] [place] [address] 09/18/2023 Office Visit Cardiology Shorty Rich, [address] [place] [address] 09/26/2023 Office Visit Urology Vitaliy Maria MD [address] [place] [phone] 12/17/2023 Office Visit Dermatology Keira De Jesus PA-Maria Del Rosario [address] [place] [address] [place] [phone] 05/02/2024 Nurse Only Ancillary [place], Nurse Annual Wellness [address] [place] [address] [place] [address] Scheduled Orders Name Type Priority Associated Diagnoses Orde r Schedule CBC WITH WBC DIFFERENTIAL Lab Routine Leukocytosis Chronic kidney disease (CKD) Loss of weight Expected: 07/27/2023, Expires: 07/27/2024 BASIC METABOLIC PANEL Lab Routine Leukocytosis Chronic kidney disease (CKD) Loss of weight Expected: 07/27/2023, Expires: 07/27/2024 Health Maintenance Due Date Last Done Comments Diabetic Foot Exam 04/22/2022 04/22/2021, 09/23/2019 COVID-19 Vaccine (5 - Pfizer series) 05/31/2022 04/05/2022, 08/05/2021, 12/12/2020, Additional history exists Influenza Vaccine (FLU shot) (#1) 2023 07/11/2022, 09/09/2021, 07/10/2020, Additional history exists Albumin/Creatinine Ratio 07/11/2023 07/11/2022, 08/30 HbA1c 07/15/2023 01/12/2023, 0904/2022, 11/22/2021, Additional history exists CKD PHOS USE SMARTSET 33055 01/13/2024 01/12/2023, 0 05/04/2021 Depression Screening 04/30/2024 04/30/2023 CKD HGB USE SMARTSET 74234 07/25/202407/25, 07/25/2023, 07/13/2023, Additional history exists DTaP,Tdap,and [...] as of this encounter Visit Diagnoses Diagnosis Leukocytosis- Primary Leukocytosis, unspecified Chronic kidney disease (CKD) Chronic kidney disease, unspecified Loss of weight documented in this encounter Advance Directives Documents on File Type Date Recorded Patient Platen Builder Up Expl anation Power of Medical Attendant 01/13/2019 POWER OF A TTORNEY Healthcare Agents on File Name Relationship Healthcare Agent Relationship Communication Ian Henriquez Other - (no specific identity) Health Care Agent (per Health Care Power of Medical Attendant document) Care Teams Wiring Technician Relationship Specialty Start Date End Date Jaelyn Pemberton MD [address] [place] [address] [place] [address] PCP - General Family Medicine 08/20/19 documented as of this encounter
--- OUTSIDE RECORDS SUMMARY | 2023-09-23 21:05 | External Medical Summary | Continuity Of Care Document ---
Author Name Unknown Address [address] [place] [address] Organization [facility] ( ) Care Team Providers Care Auto Mechanic Apprentice Name Role Phone Angel Croonel Primary Care Provider [phone] Problems Code Description Start Date End Date [...] weight Temperature SpO2 Blood Sugar Pulse Respirations 4 92124 0 68.00 mm[Hg] - Sitting 137.00 mm[Hg] - Sitting 96.70 Ear 98.00 % 64.00/ min 814 73386 3 156.00 NI 814 97240 9 155.50 NI 814 17606 2 67.00 mm[Hg] - Sitting 101.00 mm[Hg] - Sitting 97.10 Oral 96.00 % 60.00/ min 5 36384 3 70.00 mm[Hg] - Sitting 130.00 mm[Hg] - Sitting 96.20 Oral 97.00 % 60.00/ min 815 76575 4 55.00 mm[Hg] - Sitting 96.00 mm[Hg] - Sitting 97.20 Ear 95.00 % 62.00/ min 816 52705 2 68.00 mm[Hg] - Sitting 124.00 mm[Hg] - Sitting 97.80 Ear 95.00 % 60.00/ min 7 60904 2 61.00 mm[Hg] - Sitting 143.00 mm[Hg] - Sitting 98.00 Oral 96.00 % 60.00/ min 817 87134 8 54.00 mm[Hg] - Sitting 126.00 mm[Hg] - Sitting 97.60 Oral 97.00 % 59.00/ min 817 56027 3 72.00 mm[Hg] - Sitting 109.00 mm[Hg] - Sitting 98.00 Oral 96.00 % 60.00/ min 8 01379 4 70.00 mm[Hg] - Sitting 135.00 mm[Hg] - Sitting 98.10 Ear 95.00 % 61.00/ min 818 49050 3 70.00 mm[Hg] - Sitting 129.00 mm[Hg] - Sitting 98.20 Ear 96.00 % 60.00/ min 819 34148 5 52.00 mm[Hg] - Sitting 113.00 mm[Hg] - Sitting 97.90 Ear 98.00 % 60.00/ min 819 74289 3 51.00 mm[Hg] - Sitting 108.00 mm[Hg] - Sitting 97.20 Oral 95.00 % 60.00/ min 96374 820 77973 8 68.00 mm[Hg] - Sitting 125.00 mm[Hg] - Sitting 97.40 Oral 92.00 % 60.00/ min 45146 821 57898 2 52.00 mm[Hg] - Sitting 103.00 mm[Hg] - Sitting 97.70 Oral 95.00 % 60.00/ min 08432 821 10460 3 63.00 mm[Hg] - Sitting 124.00 mm[Hg] - Sitting 98.00 Oral 94.00 % 60.00/ min 81772 821 83444 3 148.00 NI 44660 821 22467 1 52.00 mm[Hg] - Sitting 105.00 mm[Hg] - Sitting 98.60 Ear 95.00 % 61.00/ min 89965 823 37419 0 150.00 NI 80897 825 04150 4 99.20 Oral 92226 825 75246 5 68.00 mm[Hg] - Sitting 166.00 mm[Hg] - Sitting 99.70 Ear 94.00 % 61.00/ min 77125 825 65462 4 99.90 Ear 74811 825 31774 1 99.30 Ear 53657 825 46711 3 78.00 mm[Hg] - Sitting 130.00 mm[Hg] - Sitting 99.60 Oral 96.00 % 84.00/ min 47383 826 11934 8 97.00 Ear 84729 826 39575 2 97.40 Ear 13102 826 71451 2 97.40 Ear 45443 828 55477 6 98.70 Oral 69918 829 29253 1 97.80 Oral 52458 829 55037 0 98.60 Ear 25067 830 50191 1 97.60 Ear 23119 830 91307 6 98.60 Ear 94700 831 83852 5 97.50 Ear 77611 831 35948 6 98.30 Oral 11295 901 67449 3 97.80 Oral 73708 902 09400 8 97.40 Oral 47074 902 64974 8 97.90 Oral 51980 903 15441 2 97.30 Oral 04887 905 38796 7 61.00 mm[Hg] - Sitting 147.00 mm[Hg] - Sitting 97.40 Ear 79.00/ min 14855 907 08136 0 148.00 NI Immunizations Vaccine Date Status COVID-19 11/21/2020 Completed COVID-19 12/12/2020 Completed COVID-19 08/05/2021 Completed COVID-19 04/05/2022 Completed Influenza 09/09/2021 Completed Influenza 07/11/2022 Completed (PCV13)Pneumococcal 08/20/2019 Completed (PPSV23)Pneumococcal 08/23/2020 Completed Shingles 08/08/2020 Completed TDaP 08/23/2020 Completed Shingles 2 04/22/2021 Completed
--- OUTSIDE RECORDS SUMMARY | 2023-09-23 21:05 | External Medical Summary | Summary of Care ---
Author Name Unknown Organization [facility] Address [address] [place] [address] Phone [phone] Care Team Providers Care Immigration Coordinator Name Role Phone Jaelyn Pemberton MD Primary Care Prov ider Reason for Visit * Reason Onset Date Comments Retirement Visit 07/13/2023 Encounter Details Date Type Department Care Team Description 07/13/2023 Retirement Visit [facility] [address] [place] [address] Thao Fernandez PA-C [address] [place] [address] History of 2019 novel coronavirus disease (COVID-19)*; Systolic CHF with reduced left ventricular function, NYHA class 2 (HCC); Type 2 diabetes mellitus with stage 3b chronic kidney disease, without long-term current use of insulin (HCC); Coronary artery disease involving [place]ut[place] coronary artery of alutiiq heart without angina pectoris; Persistent atrial fibrillation (HCC) Allergies No known active allergiesdocumented as of this encounter (statuses as of 07/13/2023) Medications Medication Sig Dispensed Refills Start Date [...] a day. 5 mL 0 11/17/2021 Active Dorzolamide HCl-Timolol Mal 22.3-6.8 MG/ML Ophthalmic Solution (Cosopt Ocumeter Plus) Instill 1 Drop into eye 2 times a day. 10 mL 0 11/17/2021 Active Lumigan 0.01 % [...] Oral Tablet (Eliquis)Indications:C oronary artery disease involving [place] coronary artery of [place]ut[place] heart without angina pectoris Take 1 Tablet [...] (blood pressure) < 140/90,Coronary artery disease involving [place] coronary artery of [place] heart without angina pectoris Take 1 Tablet [...] NYHA class 2 (HCC),Coronary artery disease involving [place]utiiq coronary artery of alutiiq heart without angina pectoris TAKE 1/2 TAB BY MOUTH IN THE MORNING *HOLD IF BLOOD PRESSURE IS LESS THAN 110/70 45 Tablet 2 06/15/2023 Active documented as of this encounter (statuses as of 07/13/2023) Active Problems Problem Noted Date Closed fracture [...] stenosis Hyperlipidemia Coronary artery disease invo lving alutiiq coronary artery of alutiiq heart without angina pectoris Moderate aortic stenosis by prior echoca rdiogram documented as of this encounter (statuses as of 07/13/2023) Resolved Problems Problem Noted Date Resolved Date [...] as of this encounter (statuses as of 07/13/2023) Immunizations Name Administration Dates Next Due COVID-19 mRNA, LNP-s, No Pre serve, 2-Dose Series ([employer]) 08/05/2021,12/12/2020,11/21/2020 COVID-19, LNP-s, No Preserve , Rashawn-sucrose, [...] Progress Notes * Thao Fernandez PA-C - 07/13/2023 12:12 PM EDT Name: Delio Padilla Date of :1935 TRANSITION EVENT: Type: Non-applicable Date: July 13 Code Status: Full Code This note pertains to care provided at [facility]. Please see facility medical record for original note. This note is not to be edited or addended in [employer]. Editing or addending needs to occur in the facilities medical record. Subjective: Delio Padilla is a 88 year old male. Patient being seen for recheck visit Chief Complaint Patient presents with Retirement Visit HPI: pt tested positive for Covid 19 infection on 06/21/23 and recovered well with Paxlovid and supportive therapy. Early this week, pt began having increase cough, some clear to white sputum production, wheezing and more dyspnea and fatigue. Remained afebrile. Vital signs stable. CXR done the otherday showed no pneumonia or CHF changes. Begun on Siltussin prn and Duonebs routine and prn with good response. Pt states he still feels congested in his chest and having some dyspnea. No diarrhea. Eating and drinking ok. CBC Results: Results for orders placed or performed in visit on 06/29/23 CBC Result Value Ref Range WBC 4.95 4.00 - 10.80 K/uL RBC 2.80 4.50 - 5.25 M/uL HGB 8.6 (L) 14.0 - 16.8 g/dL HCT 27.2 (L) 40.0 - 48.4 % MCV 97.1 82.0 - 99.5 fL MCH 30.7 27.0 - 34.0 pg MCHC 31.6 32.0 - 36.0 g/dL RDW 14.7 11.5 - 15.5 % PLT 204 140 - 400 K/uL MPV 10.0 6.6 - 11.1 fL Hemoglobin Results: Lab Results Component Value Date/Time HGB - [facility] 8.6 (L) 06/29/2023 05:42 AM HGB - [facility] 8.2 (L) 06/15/2023 06:45 AM HGB - [facility] 8.7 (L) 06/11/2023 05:35 AM HGB - [facility] 11.6 (L) 05/11/2020 03:12 PM HGB - [facility] 11.4 (L) 03/31/2020 01:13 PM HGB - [facility] 12.8 (L) 08/20/2019 04:24 PM Basic Panel Results: Results for orders placed or performed in visit on 06/15/23 BASIC METABOLIC PANEL Result Value Ref Range BUN 22 (H) 6 - 20 mg/dL Creatinine 1.2 0.6 - 1.2 mg/dL Estimated Glomerular Filtration Rate 58 (L) >=60 mL/min Sodium 137 135 - 146 mmol/L Potassium 4.4 3.5 - 5.1 mmol/L Chloride 105 98 - 107 mmol/L CO2 24 22 - 32 mmol/L Anion Gap 8 7 - 15 mmol/L Glucose 85 70 - 120 mg/dL Calcium 8.2 (L) 8.4 - 10.2 mg/dL Creatinine Results: Lab Results Component Value Date/Time CREATININE - [facility] 1.2 06/15/2023 06:45 AM CREATININE - [facility] 1.1 06/06/2023 05:13 AM CREATININE - [facility] 1.0 05/30/2023 05:05 AM CREATININE - [facility] 1.3 (H) 08/10/2020 [...] Component Value Date/Time POTASSIUM - [facility] 4.4 06/15/2023 06:45 AM POTASSIUM - [facility] 4.6 06/06/2023 05:13 AM POTASSIUM - [facility] 3.8 05/30/2023 05:05 AM POTASSIUM - [facility] 5.0 08/10/2020 02:34 PM POTASSIUM - [facility] 3.6 05/11/2020 03:12 PM POTASSIUM - [facility] 4.4 03/31/2020 01:13 PM POT[facility]SIUM[facility] 4.2 05/22/2023 12:00 AM [facility] 5.1 10/05/2021 12:00 AM [facility] 3.7 03/11/2021 12:00 AM Sodium Results: Lab Results Component Value Date/Time SODIUM - [facility] 137 06/15/2023 06:45 AM SODIUM - [facility] 136 06/06/2023 05:13 AM SODIUM - [facility] 140 05/30/2023 05:05 AM SODIUM - [facility] 141 08/10/2020 02:34 PM SODIUM - [facility] 139 05/11/2020 03:12 PM SODIUM - [facility] 139 03/31/2020 01:13 PM Has labs pending for today Patient Active Problem List Diagnosis Code Hypertension goal BP (blood pressure) < 140/90 I10 Mitral stenosis I05.0 Hyperlipidemia E78.5 Coronary artery disease involving alutiiq coronary artery of alutiiq heart without angina pectoris I25.10 Moderate aortic [...] reduced left ventricular function, NYHA class 2 ([facility]) I50.20 Hiatal hernia K44.9 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 S/p left hip fracture Z87.81 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 episode ([facility]) F32.0 Persistent atrial fibrillation (HCC) I48.19 Type 2 diabetes mellitus with stage 3b chronic kidney disease (HCC) E11.22, N18.32 Chronic kidney disease, stage 3b (HCC) N18.32 Closed nondisplaced fracture of medial wall of left acetabulum ([facility]) S32.475A Calculus of gallbladder without cholecystitis without obstruction K80.20 Closed fracture of left inferior pubic ramus ([facility]) S32.592A Closed fracture of sacrum [...] artery disease) Chest pain DM (diabetes mellitus) ([facility]) DVT prophylaxis 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 LVEF 50 to 55%. LA moderately dilated. Severe calcification aortic valve. Moderate aortic regurgitation. Moderate . Moderate MR. Mild TR. [facility] CABG, ARTERIAL, SINGLE 2000 COLONOSCOPY, DIAGNOSTIC (RECTUM) 09/09/2019 poor prep, repeat / COLONOSCOPY FLEXIBLE PROXIMAL DIAGNOSTIC [facility] COLONOSCOPY, DIAGNOSTIC (RECTUM) 09/10/2019 normal / COLONOSCOPY FLEXIBLE PROXIMAL DIAGNOSTIC performed by Filipe Hankins MD at [facility] EGD, FLEXIBLE, DIAGNOSTIC 07/21/2021 hiatal hernia / [facility] TOTAL HIP REPLACEMENT & PROSTHESIS [...] list as this cannot be edited in [employer]. Review of Systems: Constitutional ROS: No change in weight, less weakness, less fatigue and No fevers, sweats, or chills Nose ROS: No nasal stuffiness and No significant epistaxis Mouth/Throat ROS: No thrush or No sore throat Neck ROS: No lumps or masses, No swollen glands, No recent swelling in thyroid area and No significant pain in neck Pulmonary ROS: see HPI Cardiovascular ROS: No chest pain, No shortness of breath, No edema, No palpitations and No syncope Gastrointestinal ROS: No abdominal pain, No change in bowel habits, No significant change in appetite, No nausea, vomiting, diarrhea, or constipation and No dysphagia Skin/Integumentary ROS: No rash and No itching Neurologic ROS: No headaches and No seizures Psychiatric ROS: No depression, No anxiety and No psychosis OBJECTIVE: PHYSICALEXAM: I reviewed the most recent facilities vitals. General: more alert, less distress, well nourished and well developed Eye [...] and rhythm, no chest wall tenderness, lungs less coarse sounds audible Abdomen: abdomen soft, non-tender, normal bowel sounds and no masses or organomegaly Extremities: no edema, no clubbing, no cyanosis Skin: skin color, texture, turgor are normal, no rashes or significant lesions ASSESSMENT: History of 2019 novel coronavirus disease (COVID-19) (Primary) Stable Still recovering Will begin Prednisone 30mg daily times 5 days Will continue Siltussin prn and Duonebs prn Reviewed recent CXR Systolic CHF with reduced left ventricular function, NYHA class 2 (HCC) Stable no active CHF at this time Continue Lasix 40mg daily Type 2 diabetes mellitus with stage 3b chronic kidney disease, without long-term current use of insulin (HCC) Stable glucoses Continue Metforin 500mg daily Coronary artery disease involving alutiiq coronary artery of alutiiq heart without angina pectoris Stable no angina Continue NTG sl prn, Lipitor 40mg daily Persistent atrial fibrillation (HCC) Stable rate Continue Eliquis 2.5mg bid and ASA 81mg daily PLAN: Awating CBC, BMP done today and Continue present medication(s):as ordered. Residential Home Treatment Given: as above Electronically signed by: Thao Fernandez PA-C Over 35 minutes were spent in this visit more than half the time was spent counselling or coordinating care. documented in this encounter Plan of Treatment Upcoming Encounters Date Type Specialty Care Team Description 09/18/2023 Office Visit Cardiology Shorty Rich DO [address] [place] [address] 09/26/2023 Office Visit Urology Vitaliy Maria MD [address] [place] [address] 12/17/2023 Office Visit Dermatology Keira De Jesus PA-C [address] [place] [address] [place] [address] 05/02/2024 Nurse Only Ancillary [place], Nurse Annual Wellness [address] [place] [address] [place] [address] Health Maintenance Due Date Last Done Comments Diabetic Foot Exam 04/22/2022 04/22/2021, 09/23/2019 COVID-19 Vaccine (5 - Pfizer series) 05/31/2022 04/05/2022, 08/05/2021, 12/12/2020, Additional history exists Influenza Vaccine (FLU shot) (#1) 2023 07/11/2022, 09/09/2021, 07/10/2020, Additional history exists Albumin/Creatinine Ratio 07/11/2023 07/11/2022, 08/30 HbA1c 07/15/2023 01/12/2023, 0904/2022, 11/22/2021, Additional history exists CKD PHOS USE SMARTSET 11231 01/13/2024 01/12/2023, 0 05/04/2021 Depression Screening 04/30/2024 04/30/2023 CKD HGB USE SMARTSET 16188 07/13/202407/13, 07/13/2023, 06/29/2023, Additional history exists DTaP,Tdap,and [...] as of this encounter Visit Diagnoses Diagnosis History of 2019 novel coronavirus disease (COVID-19)- Primary Systolic CHF with reduced left ventricular function, NYHA class 2 (HCC) Unspecified systolic heart failure Type 2 diabetes mellitus with stage 3b chronic kidney disease, without long-term current use of insulin (HCC) Coronary artery disease involving alutiiq coronary artery of alutiiq heart without angina pectoris Persistent atrial fibrillation (HCC) Atrial fibrillation documented in this encounter Advance Directives Documents on File Type Date Recorded Patient It Admin Expl anation Power of Gas Compressor Operator 01/13/2019 POWER OF A TTORNEY Healthcare Agents on File Name Relationship Healthcare Agent Relationship Communication Ian Henriquez Other - (no specific identity) Health Care Agent (per Health Care Power of Gas Compressor Operator document) Care Teams Immigration Coordinator Relationship Specialty Start Date End Date Jaelyn Pemberton MD [address] [place] [address] [place] [phone] PCP - General Family Medicine 08/20/19 documented as of this encounter
--- OUTSIDE RECORDS SUMMARY | 2023-09-23 21:05 | External Medical Summary | Summary of Care ---
Author Name Unknown Organization [facility] Address [address] [place] [address] Phone [phone] Care Team Providers Care Caser In Name Role Phone Jaelyn Pemberton MD Primary Care Prov ider Reason for Visit * Reason Onset Date Comments Intermediate Visit 07/16/2023 Encounter Details Date Type Department Care Team Description 07/16/2023 Intermediate Visit [facility] [address] [place] [address] Thao Fernandez PA-C [address] [place] [address] Iron deficiency anemia, unspecified iron deficiency anemia type*; Persistent atrial fibrillation (HCC); Type 2 diabetes mellitus with stage 3b chronic kidney disease, without long-term current use of insulin (HCC); Hypertension goal BP (blood pressure) < 140/90; History of 2019 novel coronavirus disease (COVID-19) Allergies No known active allergiesdocumented as of this encounter (statuses as of 07/16/2023) Medications Medication Sig Dispensed Refills Start Date [...] Oral Tablet (Eliquis)Indications:C oronary artery disease involving [place] coronary artery of [place] heart without angina pectoris Take 1 Tablet [...] (blood pressure) < 140/90,Coronary artery disease involving [place] coronary artery of [place] heart without angina pectoris Take 1 Tablet [...] NYHA class 2 (HCC),Coronary artery disease involving [place] coronary artery of [place] heart without angina pectoris TAKE 1/2 TAB BY MOUTH IN THE MORNING *HOLD IF BLOOD PRESSURE IS LESS THAN 110/70 45 Tablet 2 06/15/2023 Active Dorzolamide HCl-Timolol Mal 22.3-6.8 MG/ML Ophthalmic Solution (Cosopt Ocumeter Plus) INSTILL 1 DROP INTO THE LEFT EYE 3 TIMES DAILY 10 mL 0 07/16/2023 Active documented as of this encounter (statuses as of 07/16/2023) Active Problems Problem Noted Date Closed fracture [...] stenosis Hyperlipidemia Coronary artery disease invo lving [place] coronary artery of [place] heart without angina pectoris Moderate aortic stenosis by prior echoca rdiogram documented as of this encounter (statuses as of 07/16/2023) Resolved Problems Problem Noted Date Resolved Date [...] as of this encounter (statuses as of 07/16/2023) Immunizations Name Administration Dates Next Due COVID-19 mRNA, LNP-s, No Pre serve, 2-Dose Series ([employer]) 08/05/2021,12/12/2020,11/21/2020 COVID-19, LNP-s, No Preserve , Rashawn-sucrose, [...] Description 09/18/2023 Office Visit Cardiology Shorty Rich, [address] [place] [address] 09/26/2023 Office Visit Urology Vitaliy Maria MD [address] [place] [address] [place] [address] 12/17/2023 Office Visit Dermatology Keira De Jesus PA-C [address] [place] [address] [place] [address] 05/02/2024 Nurse Only Ancillary Movalley, Nurse Annual Wellness [address] [place] [address] [place] [address] Health Maintenance Due Date Last Done Comments Diabetic Foot Exam 04/22/2022 04/22/2021, 09/23/2019 COVID-19 Vaccine (5 - Pfizer series) 05/31/2022 04/05/2022, 08/05/2021, 12/12/2020, Additional history exists Influenza Vaccine (FLU shot) (#1) 2023 07/11/2022, 09/09/2021, 07/10/2020, Additional history exists Albumin/Creatinine Ratio 07/11/2023 07/11/2022, 08/30 HbA1c 07/15/2023 01/12/2023, 09/0 04/2022, 11/22/2021, Additional history exists CKD PHOS USE SMARTSET 44622 01/13/2024 01/12/2023, 0 05/04/2021 Depression Screening 04/30/2024 04/30/2023 CKD HGB USE SMARTSET 66444 07/13/202407/13, 07/13/2023, 06/29/2023, Additional history exists DTaP,Tdap,and [...] anemia, unspecified iron deficiency anemia type- Primary Persistent atrial fibrillation (HCC) Atrial fibrillation Type 2 diabetes mellitus with stage 3b chronic kidney disease, without long-term current use of insulin (HCC) Hypertension goal BP (blood pressure) < 140/90 Unspecified essential hypertension History of 2019 novel coronavirus disease (COVID-19) documented in this encounter Advance Directives Documents on File Type Date Recorded 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
--- OUTSIDE RECORDS SUMMARY | 2023-09-23 21:05 | External Medical Summary | Summary of Care ---
Author Name Unknown Organization [facility] Address [address] [place] [address] Phone [phone] Care Team Providers Care School Guard Name Role Phone Jaelyn Pemberton MD Primary Care Prov ider Encounter Details Date Type Department Care Team Description 07/25/2023 Orders Only Lab Mobile Phlebotomy [facility] [address] [place] [address] Angel Coronel MD [address] [place] [address] [place] [phone] Loss of weight*; Congestive heart failure (CHF) (HCC); Hypotension due to drugs; Hypotension Allergies No known active allergiesdocumented as of [...] Oral Tablet (Eliquis)Indications:C oronary artery disease involving [place] coronary artery of [place] heart without angina pectoris Take 1 Tablet [...] (blood pressure) < 140/90,Coronary artery disease involving [place] coronary artery of [place] heart without angina pectoris Take 1 Tablet [...] NYHA class 2 (HCC),Coronary artery disease involving [place] coronary artery of [place] heart without angina pectoris TAKE 1/2 TAB [...] stenosis Hyperlipidemia Coronary artery disease invo lving [place] coronary artery of [place] heart without angina pectoris Moderate aortic stenosis [...] encounter Progress Notes * MADISON Crawford - 07/25/2023 12:05 AM EDT C documented in this encounter Plan of Treatment Upcoming Encounters Date Type Specialty Care Team Description 07/25/2023 Laboratory Laboratory Processing [address] [place] [address] Arrived 09/18/2023 Office Visit Cardiology Shorty Rich, DO [address] [place] [address] 09/26/2023 Office Visit Urology Vitaliy Maria MD [address] [place] [address] 12/17/2023 Office Visit Dermatology Keira De Jesus PA-C [address] [place] [address] [place] [address] 05/02/2024 Nurse Only Ancillary [place]oval[place], Nurse Annual Wellness [address] [place] [address] [place] [address] Scheduled Orders Name Type Priority Associated Diagnoses Orde r Schedule CBC WITH WBC DIFFERENTIAL Lab Routine Loss of weight Congestive heart failure (CHF) (HCC) Hypotension Expected: 07/25/2023, Expires: 07/25/2024 BASIC METABOLIC PANEL Lab Routine Loss of weight Congestive heart failure (CHF) (HCC) Hypotension Expected: 07/25/2023, Expires: 07/25/2024 Health Maintenance Due Date Last Done Comments Diabetic Foot Exam 04/22/2022 04/22/2021, 09/23/2019 COVID-19 Vaccine (5 - Pfizer series) 05/31/2022 04/05/2022, 08/05/2021, 12/12/2020, Additional history exists Influenza Vaccine (FLU shot) (#1) 2023 07/11/2022, 09/09/2021, 07/10/2020, Additional history exists Albumin/Creatinine Ratio 07/11/2023 07/11/2022, 08/30 HbA1c 07/15/2023 01/12/2023, 09/0 04/2022, 11/22/2021, Additional history exists CKD PHOS USE SMARTSET 64607 01/13/2024 01/12/2023, 0 05/04/2021 Depression Screening 04/30/2024 04/30/2023 CKD HGB USE SMARTSET 53408 07/13/202407/13, 07/13/2023, 06/29/2023, Additional history exists DTaP,Tdap,and [...] Visit Diagnoses Diagnosis Loss of weight- Primary Congestive heart failure (CHF) (HCC) Congestive heart failure, unspecified Hypotension due to drugs Other iatrogenic hypotension Hypotension Hypotension, unspecified documented in this encounter Advance Directives Documents on File Type Date Recorded 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
--- OUTSIDE RECORDS SUMMARY | 2023-09-23 21:05 | External Medical Summary ---
Author Name Unknown Address Unknown Organization K0G:[facility] [address] [place] [address] Laboratory Report Ordering Provider Test Date Status KALEY KERNS 06/29/2023 05:42:00 Final Observation Date Value Abnormality Reference (Units ) Status WBC, Total 06/29/2023 05:42:00 4.95 4.00-10.8 0 (K/uL) Final RBC 06/29/2023 05:42:00 2.80 4.50-5.25 (M/uL) Final Hemoglobin 06/29/2023 05:42:00 8.6 Below low normal 14 .0-16.8 (g/dL) Final HCT 06/29/2023 05:42:00 27.2 Below low normal 40. 0-48.4 (%) Final MCV 06/29/2023 05:42:00 97.1 82.0-99.5 (fL) Final MCH 06/29/2023 05:42:00 30.7 27.0-34.0 (pg) Final MCHC 06/29/2023 05:42:00 31.6 32.0-36.0 (g/dL) Final RDW 06/29/2023 05:42:00 14.7 11.5-15.5 (%) Final Platelets 06/29/2023 05:42:00 204 140-400 (K /uL) Final MPV 06/29/2023 05:42:00 10.0 6.6-11.1 ( fL) Final Performing Location [facility] [address] [place] [address]
--- OUTSIDE RECORDS SUMMARY | 2023-09-23 21:05 | External Medical Summary | Summary of Care ---
Author Name Unknown Organization [facility] Address [address] [place] [address] Phone [phone] Care Team Providers Care Medical Equipment Repairer Name Role Phone Jaelyn Pemberton MD Primary Care Prov ider Encounter Details Date Type Department Care Team Description 07/13/2023 Orders Only Lab Mobile Phlebotomy [facility] [address] [place] [address] Angel Coronel MD [address] [place] [address] [place] [id number] CKD (chronic kidney disease), symptom management only* Allergies No known active allergiesdocumented as of [...] Oral Tablet (Eliquis)Indications:C oronary artery disease involving [place] coronary artery of [place] heart without angina pectoris Take 1 Tablet [...] (blood pressure) < 140/90,Coronary artery disease involving [place] coronary artery of [place] heart without angina pectoris Take 1 Tablet [...] NYHA class 2 (HCC),Coronary artery disease involving [place] coronary artery of [place] heart without angina pectoris TAKE 1/2 TAB [...] stenosis Hyperlipidemia Coronary artery disease invo lving [place] coronary artery of [place] heart without angina pectoris Moderate aortic stenosis [...] Encounters Date Type Specialty Care Team Description 07/13/2023 Skilled Nursing Visit Family Medicine Thao Fernandez PA-C [address] [place] [address] 07/13/2023 Laboratory Laboratory Processing [facility] [address] [place] [address] 07/18/2023 Office Visit Family Medicine Jaelyn Pemberton MD [address] [place] [address] [place] [address] 09/18/2023 Office Visit Cardiology Shorty Rich, [address] [place] [address] 09/26/2023 Office Visit Urology Vitaliy Maria MD [address] [place] [address] 12/17/2023 Office Visit Dermatology Keira De Jesus PA-C [address] [place] [address] [place] [address] 05/02/2024 Nurse Only Ancillary [place]oval[place], Nurse Annual Wellness [address] [place] [address] [place] [address] Scheduled Orders Name Type Priority Associated Diagnoses Orde r Schedule BASIC METABOLIC PANEL Lab Routine CKD (chronic kidney disease), symptom management only Expected: 07/13/2023, Expires: 07/13/2024 CBC WITH WBC DIFFERENTIAL Lab Routine CKD (chronic kidney disease), symptom management only Expected: 07/13/2023, Expires: 07/13/2024 Health Maintenance Due Date Last Done Comments Diabetic Foot Exam 04/22/2022 04/22/2021, 09/23/2019 COVID-19 Vaccine (5 - Pfizer series) 05/31/2022 04/05/2022, 08/05/2021, 12/12/2020, Additional history exists Influenza Vaccine (FLU shot) (#1) 2023 07/11/2022, 09/09/2021, 07/10/2020, Additional history exists Albumin/Creatinine Ratio 07/11/2023 07/11/2022, 11/2 04/2019 HbA1c 07/15/2023 01/12/2023, 09/0 04/2022, 11/22/2021, Additional history exists CKD PHOS USE SMARTSET 16116 01/13/2024 01/12/2023, 0 05/04/2021 Depression Screening 04/30/2024 04/30/2023 CKD HGB USE SMARTSET 04317 06/29/202406/29, 06/15/2023, 06/11/2023, Additional history exists DTaP,Tdap,and Td Vaccines (2 [...] as of this encounter Visit Diagnoses Diagnosis CKD (chronic kidney disease), symptom management only- Primary Chronic kidney disease, unspecified documented in this encounter Advance Directives Documents on File Type Date Recorded 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
--- OUTSIDE RECORDS SUMMARY | 2023-09-23 21:05 | External Medical Summary | Summary of Care ---
Author Name Unknown Organization [facility] Address [address] [place] [address] Phone [phone] Care Team Providers Care Professor Of Exercise Science Name Role Phone Jaelyn Pemberton MD Primary Care Prov ider Reason for Visit * Reason Onset Date Comments Residential Visit 07/24/2023 Encounter Details Date Type Department Care Team Description 07/24/2023 Residential Visit [facility] [address] [place] [address] Thao Fernandez PA-C [address] [place] [address] Loss of weight*; Decreased oral intake; Persistent atrial fibrillation (HCC); Type 2 diabetes mellitus with stage 3b chronic kidney disease, without long-term current use of insulin (HCC); Systolic CHF with reduced left ventricular function, NYHA class 2 ([facility]); Hypotension, unspecified hypotension type; Adjustment disorder with depressed mood Allergies No known active allergiesdocumented as of this encounter (statuses as of 07/24/2023) Medications Medication Sig Dispensed Refills Start Date [...] Oral Tablet (Eliquis)Indications:C oronary artery disease involving [place] coronary artery of [place] heart without angina pectoris Take 1 Tablet [...] (blood pressure) < 140/90,Coronary artery disease involving [place] coronary artery of [place] heart without angina pectoris Take 1 Tablet [...] NYHA class 2 (HCC),Coronary artery disease involving [place] coronary artery of [place] heart without angina pectoris TAKE 1/2 TAB BY MOUTH IN THE MORNING *HOLD IF BLOOD PRESSURE IS LESS THAN 110/70 45 Tablet 2 06/15/2023 Active Dorzolamide HCl-Timolol Mal 22.3-6.8 MG/ML Ophthalmic Solution (Cosopt Ocumeter Plus) INSTILL 1 DROP INTO THE LEFT EYE 3 TIMES DAILY 10 mL 0 07/16/2023 Active documented as of this encounter (statuses as of 07/24/2023) Active Problems Problem Noted Date Closed fracture [...] stenosis Hyperlipidemia Coronary artery disease invo lving [place] coronary artery of [place] heart without angina pectoris Moderate aortic stenosis by prior echoca rdiogram documented as of this encounter (statuses as of 07/24/2023) Resolved Problems Problem Noted Date Resolved Date [...] as of this encounter (statuses as of 07/24/2023) Immunizations Name Administration Dates Next Due COVID-19 mRNA, LNP-s, No Pre serve, 2-Dose Series ([employer]) 08/05/2021,12/12/2020,11/21/2020 COVID-19, LNP-s, No Preserve , Rashawn-sucrose, [...] Shorty Rich, [address] [place] [address] 09/26/2023 Office Visit Urology Vitaliy Maria MD [address] [place] [address] 12/17/2023 Office Visit Dermatology Keira De Jesus PA-C [address] [place] [address] [place] [address] 05/02/2024 Nurse Only Ancillary Movalley, Nurse Annual Wellness [address] [place] [address] [place] [address] Health Maintenance Due Date Last Done Comments Diabetic Foot Exam 04/22/2022 04/22/2021, 09/23/2019 COVID-19 Vaccine (5 - Pfizer series) 05/31/2022 04/05/2022, 08/05/2021, 12/12/2020, Additional history exists Influenza Vaccine (FLU shot) (#1) 2023 07/11/2022, 09/09/2021, 07/10/2020, Additional history exists Albumin/Creatinine Ratio 07/11/2023 07/11/2022, 08/30 HbA1c 07/15/2023 01/12/2023, 09/0 04/2022, 11/22/2021, Additional history exists CKD PHOS USE SMARTSET 38543 01/13/2024 01/12/2023, 0 05/04/2021 Depression Screening 04/30/2024 04/30/2023 CKD HGB USE SMARTSET 24505 07/13/202407/13, 07/13/2023, 06/29/2023, Additional history exists DTaP,Tdap,and [...] Other symptoms concerning nutrition, metabolism, and development Persistent atrial fibrillation (HCC) Atrial fibrillation Type 2 diabetes mellitus with stage 3b chronic kidney disease, without long-term current use of insulin (HCC) Systolic CHF with reduced left ventricular function, NYHA class 2 (HCC) Unspecified systolic heart failure Hypotension, unspecified hypotension type Adjustment disorder with depressed mood documented in this encounter Advance Directives Documents on File Type Date Recorded 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
--- OUTSIDE RECORDS SUMMARY | 2023-09-23 21:05 | External Medical Summary | Summary of Care ---
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 180 Tablet 1 12/18/2022 Active Sennosides-Docusate Sodium 8.6-50 MG Oral Tablet (Senna S) Take 1 Tablet by mouth in the morning. 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 S/p left hip fracture 10/11/2021 Current mild [...] stenosis Hyperlipidemia Coronary artery disease invo lving [place] coronary artery of [place] heart without angina pectoris Moderate aortic stenosis by prior echoca rdiogram documented as of this encounter (statuses as of 07/06/2023) Resolved Problems Problem Noted Date Resolved Date [...] as of this encounter (statuses as of 07/06/2023) Immunizations Name Administration Dates Next Due COVID-19 mRNA, LNP-s, No Pre serve, 2-Dose Series ([employer]) 08/05/2021,12/12/2020,11/21/2020 COVID-19, LNP-s, No Preserve , Rashawn-sucrose, [...] drink = 0.6 oz pur e alcohol) wine once in awhile Alcohol Habits Answer Date Recorded How often [...] encounter Miscellaneous Notes * Telephone Encounter - Janiya Norman RN - 01/22/2023 2:26 PM EDT Patient's DMPOA, Ian Henriquez, asking for assistance paying for patient's Lumigan and Eliquis. Reports patient has already met the required 'spend-down' for the year? I am not sure what that means, but obviously you will. Thank you. documented in this encounter Plan of Treatment Upcoming Encounters Date Type Specialty Care Team Description 07/18/2023 Office Visit Family Medicine Jaelyn Pemberton MD [address] [place] [address] [place] [address] 09/18/2023 Office Visit Cardiology Shorty Rich, DO [address] [place] [address] 09/26/2023 Office Visit Urology Vitaliy Maria MD [address] [place] [address] 12/17/2023 Office Visit Dermatology Keira De Jesus PA-C [address] [place] [address] [place] [address] 05/02/2024 Nurse Only Ancillary Movalley, Nurse Annual Wellness [address] [place] [address] [place] [address] Health Maintenance Due Date Last Done Comments Diabetic Foot Exam 04/22/2022 04/22/2021, 09/23/2019 COVID-19 Vaccine (5 - Pfizer series) 05/31/2022 04/05/2022, 08/05/2021, 12/12/2020, Additional history exists Influenza Vaccine (FLU shot) (#1) 2023 07/11/2022, 09/09/2021, 07/10/2020, Additional history exists Albumin/Creatinine Ratio 07/11/2023 07/11/2022, 08/30 HbA1c 07/15/2023 01/12/2023, 04/2022, 11/22/2021, Additional history exists CKD PHOS USE SMARTSET 97476 01/13/2024 01/12/2023, 0 05/04/2021 Depression Screening 04/30/2024 04/30/2023 CKD HGB USE SMARTSET 68496 06/29/202406/29, 06/15/2023, 06/11/2023, Additional history exists DTaP,Tdap,and [...] on File Type Date Recorded 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
--- OUTSIDE RECORDS SUMMARY | 2023-09-23 21:05 | External Medical Summary | Summary of Care ---
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) Allergies No known active allergiesdocumented as [...] Oral Tablet (Eliquis)Indications:C oronary artery disease involving [place] coronary artery of [place] heart without angina pectoris Take 1 Tablet [...] (blood pressure) < 140/90,Coronary artery disease involving [place] coronary artery of [place] heart without angina pectoris Take 1 Tablet [...] NYHA class 2 (HCC),Coronary artery disease involving [place] coronary artery of [place] heart without angina pectoris TAKE 1/2 TAB [...] stenosis Hyperlipidemia Coronary artery disease invo lving [place] coronary artery of [place] heart without angina pectoris Moderate aortic stenosis [...] Encounters Date Type Specialty Care Team Description 07/24/2023 Laboratory Laboratory Processing [address] [place], [place] [address] 09/18/2023 Office Visit Cardiology Shorty Rich, DO [address] [place] [address] 09/26/2023 Office Visit Urology Vitaliy Maria MD [address] [place] [address] [place] [address] 12/17/2023 Office Visit Dermatology Keira De Jesus PA-C [address] [place] [address] [place] [address] 05/02/2024 Nurse Only Ancillary Moval[place], Nurse Annual Wellness [address] [place] [address] [place] [phone] Scheduled Orders Name Type Priority Associated Diagnoses Orde r Schedule BASIC METABOLIC PANEL Lab Routine Weight loss 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) Expected: 07/24/2023, Expires: 07/24/2024 CBC WITH WBC DIFFERENTIAL Lab Routine Weight loss 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) Expected: 07/24/2023, Expires: 07/24/2024 Health Maintenance Due Date Last Done Comments Diabetic Foot Exam 04/22/2022 04/22/2021, 09/23/2019 COVID-19 Vaccine (5 - Pfizer series) 05/31/2022 04/05/2022, 08/05/2021, 12/12/2020, Additional history exists Influenza Vaccine (FLU shot) (#1) 2023 07/11/2022, 09/09/2021, 07/10/2020, Additional history exists Albumin/Creatinine Ratio 07/11/2023 07/11/2022, 08/30 HbA1c 07/15/2023 01/12/2023, 04/2022, 11/22/2021, Additional history exists CKD PHOS USE SMARTSET 74651 01/13/2024 01/12/2023, 0 05/04/2021 Depression Screening 04/30/2024 04/30/2023 CKD HGB USE SMARTSET 53015 07/13/202407/13, 07/13/2023, 06/29/2023, Additional history exists DTaP,Tdap,and [...] as of this encounter Visit Diagnoses Diagnosis Weight loss- Primary Loss of weight 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 Heart failure, unspecified documented in this encounter Advance Directives Documents on File Type Date Recorded Patient 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
--- OUTSIDE RECORDS SUMMARY | 2023-09-23 21:05 | External Medical Summary | Summary of Care ---
Author Name Unknown Organization [facility] Address [address] [place] [address] Phone [phone] Care Team Providers Care Die Storage Clerk Name Role Phone Jaelyn Pemberton MD Primary Care Prov ider Reason for Visit * Reason Onset Date Comments Complicated Acute Visit 07/23/2023 Encounter Details Date Type Department Care Team Description 07/23/2023 Correction Visit [facility] [address] [place] [address] Thao Fernandez PA-C [address] [place] [address] Loss of weight*; Hypotension, unspecified hypotension type; Moderate aortic regurgitation with left ventricular dilation by prior echocardiogram; Moderate mitral regurgitation by prior echocardiogram; Type 2 diabetes mellitus with stage 3b chronic kidney disease, without long-term current use of insulin ([facility]); Systolic CHF with reduced left ventricular function, NYHA class 2 ([facility]); 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 episode ([facility]); Persistent atrial fibrillation ([facility]); Iron deficiency anemia, unspecified iron deficiency anemia type Allergies No known active allergiesdocumented as of this encounter (statuses as of 07/23/2023) Medications Medication Sig Dispensed Refills Start Date [...] Oral Tablet (Eliquis)Indications:C oronary artery disease involving [place] coronary artery of [place] heart without angina pectoris Take 1 Tablet [...] (blood pressure) < 140/90,Coronary artery disease involving [place] coronary artery of [place] heart without angina pectoris Take 1 Tablet [...] NYHA class 2 (HCC),Coronary artery disease involving [place] coronary artery of [place] heart without angina pectoris TAKE 1/2 TAB BY MOUTH IN THE MORNING *HOLD IF BLOOD PRESSURE IS LESS THAN 110/70 45 Tablet 2 06/15/2023 Active Dorzolamide HCl-Timolol Mal 22.3-6.8 MG/ML Ophthalmic Solution (Cosopt Ocumeter Plus) INSTILL 1 DROP INTO THE LEFT EYE 3 TIMES DAILY 10 mL 0 07/16/2023 Active documented as of this encounter (statuses as of 07/23/2023) Active Problems Problem Noted Date Closed fracture [...] stenosis Hyperlipidemia Coronary artery disease invo lving [place] coronary artery of [place] heart without angina pectoris Moderate aortic stenosis by prior echoca rdiogram documented as of this encounter (statuses as of 07/23/2023) Resolved Problems Problem Noted Date Resolved Date [...] as of this encounter (statuses as of 07/23/2023) Immunizations Name Administration Dates Next Due COVID-19 mRNA, LNP-s, No Pre serve, 2-Dose Series ([employer]) 08/05/2021,12/12/2020,11/21/2020 COVID-19, LNP-s, No Preserve , Rashawn-sucrose, [...] Cardiology Shorty Rich, DO [address] [place] [address] 09/26/2023 Office Visit Urology Vitaliy Maria MD [address] [place] [address] [place] [address] 12/17/2023 Office Visit Dermatology Keira De Jesus PA-C [address] [place] [address] [place] [address] 05/02/2024 Nurse Only Ancillary [place]oval[place], Nurse Annual Wellness [address] [place] [address] [place] [phone] Health Maintenance Due Date Last Done Comments Diabetic Foot Exam 04/22/2022 04/22/2021, 09/23/2019 COVID-19 Vaccine (5 - Pfizer series) 05/31/2022 04/05/2022, 08/05/2021, 12/12/2020, Additional history exists Influenza Vaccine (FLU shot) (#1) 2023 07/11/2022, 09/09/2021, 07/10/2020, Additional history exists Albumin/Creatinine Ratio 07/11/2023 07/11/2022, 08/30 HbA1c 07/15/2023 01/12/2023, 04/2022, 11/22/2021, Additional history exists CKD PHOS USE SMARTSET 32022 01/13/2024 01/12/2023, 0 05/04/2021 Depression Screening 04/30/2024 04/30/2023 CKD HGB USE SMARTSET 65253 07/13/202407/13, 07/13/2023, 06/29/2023, Additional history exists DTaP,Tdap,and [...] Visit Diagnoses Diagnosis Loss of weight- Primary Hypotension, unspecified hypotension type Moderate aortic regurgitation with left ventricular dilation by prior echocardiogram Aortic valve disorders Moderate mitral regurgitation by prior echocardiogram Mitral valve disorders Type 2 diabetes mellitus with stage 3b chronic kidney disease, without long-term current use of insulin (HCC) Systolic CHF with reduced left ventricular function, NYHA class 2 (HCC) Unspecified systolic heart failure 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) Persistent atrial fibrillation (HCC) Atrial fibrillation Iron deficiency anemia, unspecified iron deficiency anemia type documented in this encounter Advance Directives Documents on File Type Date Recorded Patient Society Editor Expl anation Power of Spool Salvager 01/13/2019 POWER OF A TTORNEY Healthcare Agents on File Name Relationship Healthcare Agent Relationship Communication Ian Henriquez Other - (no specific identity) Health Care Agent (per Health Care Power of Spool Salvager document) Care Teams Die Storage Clerk Relationship Specialty Start Date End Date Jaelyn Pemberton MD [address] [place] [address] [place] [phone] PCP - General Family Medicine 08/20/19 documented as of this encounter
--- OUTSIDE RECORDS SUMMARY | 2023-09-23 21:05 | External Medical Summary ---
Author Name Unknown Address Unknown Organization K01:LABORATORY [facility] [place] - [address] [place] [address] Laboratory Report Ordering Provider Test Date Status KALEY KERNS 07/13/2023 05:38:00 Final Observation Date Value Abnormality Reference (Units ) Status WBC, Total 07/13/2023 05:38:00 7.36 4.00-10.80 (K/uL) Final RBC 07/13/2023 05:38:00 2.60 4.50-5.25 (M/uL) Final Hemoglobin 07/13/2023 05:38:00 8.3 Below low normal 14.0-16.8 (g/dL) Final HCT 07/13/2023 05:38:00 26.1 Below low normal 40.0-48.4 (%) Final MCV 07/13/2023 05:38:00 100.4 82.0-99.5 (fL) Final MCH 07/13/2023 05:38:00 31.9 27.0-34.0 (pg) Final MCHC 07/13/2023 05:38:00 31.8 32.0-36.0 (g/dL) Final RDW 07/13/2023 05:38:00 14.9 11.5-15.5 (%) Final Platelets 07/13/2023 05:38:00 230 140-400 (K/uL) Final MPV 07/13/2023 05:38:00 10.3 6.6-11.1 (fL) Final Nucleated erythrocytes/100 leukocytes [Ratio] in Blood by Automated count 07/13/2023 05:38:00 0 <=0 (/100 WBCs) Final Performing Location LABORATORY [facility] [place] - [address] [place] [address]
--- OUTSIDE RECORDS SUMMARY | 2023-09-23 21:05 | External Medical Summary | Continuity Of Care Document ---
Author Name Unknown Address [address] [place] [address] Organization [facility] ( ) Care Team Providers Care Beader Name Role Phone Angel Coronel Primary Care Provider [phone] Problems Code Description Start Date End Date [...] weight Temperature SpO2 Blood Sugar Pulse Respirations 816 15912 2 68.00 mm[Hg] - Sitting 124.00 mm[Hg] - Sitting 97.80 Ear 95.00 % 60.00/ min 817 55796 2 61.00 mm[Hg] - Sitting 143.00 mm[Hg] - Sitting 98.00 Oral 96.00 % 60.00/ min 817 02029 8 54.00 mm[Hg] - Sitting 126.00 mm[Hg] - Sitting 97.60 Oral 97.00 % 59.00/ min 817 33721 3 72.00 mm[Hg] - Sitting 109.00 mm[Hg] - Sitting 98.00 Oral 96.00 % 60.00/ min 818 73076 4 70.00 mm[Hg] - Sitting 135.00 mm[Hg] - Sitting 98.10 Ear 95.00 % 61.00/ min 818 14786 3 70.00 mm[Hg] - Sitting 129.00 mm[Hg] - Sitting 98.20 Ear 96.00 % 60.00/ min 819 24690 5 52.00 mm[Hg] - Sitting 113.00 mm[Hg] - Sitting 97.90 Ear 98.00 % 60.00/ min 819 80150 3 51.00 mm[Hg] - Sitting 108.00 mm[Hg] - Sitting 97.20 Oral 95.00 % 60.00/ min 820 89826 8 68.00 mm[Hg] - Sitting 125.00 mm[Hg] - Sitting 97.40 Oral 92.00 % 60.00/ min 821 29431 2 52.00 mm[Hg] - Sitting 103.00 mm[Hg] - Sitting 97.70 Oral 95.00 % 60.00/ min 821 80877 3 63.00 mm[Hg] - Sitting 124.00 mm[Hg] - Sitting 98.00 Oral 94.00 % 60.00/ min 821 50435 3 148.00 NI 821 81689 1 52.00 mm[Hg] - Sitting 105.00 mm[Hg] - Sitting 98.60 Ear 95.00 % 61.00/ min 66502 823 84822 0 150.00 NI Immunizations Vaccine Date Status COVID-19 11/21/2020 Completed COVID-19 12/12/2020 Completed COVID-19 08/05/2021 Completed COVID-19 04/05/2022 Completed Influenza 09/09/2021 Completed Influenza 07/11/2022 Completed (PCV13)Pneumococcal 08/20/2019 Completed (PPSV23)Pneumococcal 08/23/2020 Completed Shingles 08/08/2020 Completed TDaP 08/23/2020 Completed Shingles 2 04/22/2021 Completed
--- OUTSIDE RECORDS SUMMARY | 2023-09-23 21:05 | External Medical Summary | Continuity Of Care Document ---
Author Name Unknown Address [address] [place] [address] Organization [facility] ( ) Care Team Providers Care Hand Plug Shaper Name Role Phone Angel Coronel Primary Care Provider [phone] Problems Code Description Start Date End Date [...] weight Temperature SpO2 Blood Sugar Pulse Respirations 2 22638 8 71.00 mm[Hg] - Sitting 127.00 mm[Hg] - Sitting 98.50 Ear 99.00 % 67.00/ min 813 38235 6 68.00 mm[Hg] - Sitting 149.00 mm[Hg] - Sitting 98.10 Ear 94.00 % 64.00/ min 813 20254 1 68.00 mm[Hg] - Sitting 128.00 mm[Hg] - Sitting 98.00 Oral 98.00 % 60.00/ min 814 31765 0 68.00 mm[Hg] - Sitting 137.00 mm[Hg] - Sitting 96.70 Ear 98.00 % 64.00/ min 814 00453 3 156.00 NI [address] 814 73396 9 155.50 NI 814 27825 2 67.00 mm[Hg] - Sitting 101.00 mm[Hg] - Sitting 97.10 Oral 96.00 % 60.00/ min 5 43226 3 70.00 mm[Hg] - Sitting 130.00 mm[Hg] - Sitting 96.20 Oral 97.00 % 60.00/ min 815 70104 4 55.00 mm[Hg] - Sitting 96.00 mm[Hg] - Sitting 97.20 Ear 95.00 % 62.00/ min 816 02555 2 68.00 mm[Hg] - Sitting 124.00 mm[Hg] - Sitting 97.80 Ear 95.00 % 60.00/ min 817 55411 2 61.00 mm[Hg] - Sitting 143.00 mm[Hg] - Sitting 98.00 Oral 96.00 % 60.00/ min 817 98969 8 54.00 mm[Hg] - Sitting 126.00 mm[Hg] - Sitting 97.60 Oral 97.00 % 59.00/ min 817 69762 3 72.00 mm[Hg] - Sitting 109.00 mm[Hg] - Sitting 98.00 Oral 96.00 % 60.00/ min 818 66292 4 70.00 mm[Hg] - Sitting 135.00 mm[Hg] - Sitting 98.10 Ear 95.00 % 61.00/ min 27918 818 48249 3 70.00 mm[Hg] - Sitting 129.00 mm[Hg] - Sitting 98.20 Ear 96.00 % 60.00/ min 34911 819 04845 5 52.00 mm[Hg] - Sitting 113.00 mm[Hg] - Sitting 97.90 Ear 98.00 % 60.00/ min 39266 819 53491 3 51.00 mm[Hg] - Sitting 108.00 mm[Hg] - Sitting 97.20 Oral 95.00 % 60.00/ min 32268 820 11343 8 68.00 mm[Hg] - Sitting 125.00 mm[Hg] - Sitting 97.40 Oral 92.00 % 60.00/ min 66963 821 24486 2 52.00 mm[Hg] - Sitting 103.00 mm[Hg] - Sitting 97.70 Oral 95.00 % 60.00/ min 99016 821 13940 3 63.00 mm[Hg] - Sitting 124.00 mm[Hg] - Sitting 98.00 Oral 94.00 % 60.00/ min 39753 821 68564 3 148.00 NI 65772 821 86296 1 52.00 mm[Hg] - Sitting 105.00 mm[Hg] - Sitting 98.60 Ear 95.00 % 61.00/ min 00486 823 95935 0 150.00 NI 91840 825 77728 4 99.20 Oral 47933 825 82207 5 68.00 mm[Hg] - Sitting 166.00 mm[Hg] - Sitting 99.70 Ear 94.00 % 61.00/ min 88576 825 23633 4 99.90 Ear 61282 825 06417 1 99.30 Ear 09589 825 72029 3 78.00 mm[Hg] - Sitting 130.00 mm[Hg] - Sitting 99.60 Oral 96.00 % 84.00/ min 50094 826 63409 8 97.00 Ear 83198 826 35533 2 97.40 Ear 14150 826 81822 2 97.40 Ear 89336 828 03473 6 98.70 Oral 61057 829 62310 1 97.80 Oral 51042 829 90718 0 98.60 Ear 06016 830 62073 1 97.60 Ear 22566 830 62632 6 98.60 Ear 53257 831 75865 5 97.50 Ear 20206 831 98719 6 98.30 Oral 35018 901 24867 3 97.80 Oral 12030 902 49726 8 97.40 Oral 48530 902 33237 8 97.90 Oral 39151 903 51701 2 97.30 Oral 35606 905 45692 7 61.00 mm[Hg] - Sitting 147.00 mm[Hg] - Sitting 97.40 Ear 79.00/ min 48630 907 28662 0 148.00 NI Immunizations Vaccine Date Status COVID-19 11/21/2020 Completed COVID-19 12/12/2020 Completed COVID-19 08/05/2021 Completed COVID-19 04/05/2022 Completed Influenza 09/09/2021 Completed Influenza 07/11/2022 Completed (PCV13)Pneumococcal 08/20/2019 Completed (PPSV23)Pneumococcal 08/23/2020 Completed Shingles 08/08/2020 Completed TDaP 08/23/2020 Completed Shingles 2 04/22/2021 Completed
--- OUTSIDE RECORDS SUMMARY | 2023-09-23 21:05 | External Medical Summary | Summary of Care ---
Author Name Unknown Organization [facility] Address [address] [place] [address] Phone [phone] Care Team Providers Care Bead Picker Name Role Phone Jaelyn Pemberton MD Primary Care Prov ider Reason for Visit * Reason Onset Date Comments Alf Visit 07/16/2023 Encounter Details Date Type Department Care Team Description 07/16/2023 Alf Visit [facility] [address] [place] [address] Thao Fernandez PA-C [address] [place] [address] Iron deficiency anemia, unspecified iron deficiency anemia [...] Oral Tablet (Eliquis)Indications:C oronary artery disease involving [place] coronary artery of [place] heart without angina pectoris Take 1 [...] (blood pressure) < 140/90,Coronary artery disease involving [place] coronary artery of [place] heart without angina pectoris Take 1 [...] NYHA class 2 (HCC),Coronary artery disease involving [place] coronary artery of [place] heart without angina pectoris TAKE 1/2 [...] stenosis Hyperlipidemia Coronary artery disease invo lving [place] coronary artery of [place] heart without angina pectoris Moderate aortic [...] mRNA, LNP-s, No Pre serve, 2-Dose Series ([employer]) 08/05/2021,12/12/2020,11/21/2020 COVID-19, LNP-s, No Preserve , Rashawn-sucrose, [...] Shorty Rich, [address] [place] [address] 09/26/2023 Office Visit Urology Vitaliy Maria MD [address] [place] [address] 12/17/2023 Office Visit Dermatology Keira De Jesus PA-C [address] [place] [address] [place] [address] 05/02/2024 Nurse Only Ancillary Movalley, Nurse Annual Wellness [address] [place] [address] [place] [address] Health Maintenance Due Date Last Done Comments Diabetic Foot Exam 04/22/2022 04/22/2021, 09/23/2019 COVID-19 Vaccine (5 - Pfizer series) 05/31/2022 04/05/2022, 08/05/2021, 12/12/2020, Additional history exists Influenza Vaccine (FLU shot) (#1) 2023 07/11/2022, 09/09/2021, 07/10/2020, Additional history exists Albumin/Creatinine Ratio 07/11/2023 07/11/2022, 08/30 HbA1c 07/15/2023 01/12/2023, 09/0 04/2022, 11/22/2021, Additional history exists CKD PHOS USE SMARTSET 41405 01/13/2024 01/12/2023, 0 05/04/2021 Depression Screening 04/30/2024 04/30/2023 CKD HGB USE SMARTSET 81309 07/13/202407/13, 07/13/2023, 06/29/2023, Additional history exists DTaP,Tdap,and [...] Documents on File Type Date Recorded 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
--- OUTSIDE RECORDS SUMMARY | 2023-09-23 21:05 | External Medical Summary ---
Author Name Unknown Address Unknown Organization K01:[facility] [place] [facility] [address] [place] [address] Laboratory Report Ordering Provider Test Date Status KALEY KERNS 07/13/2023 05:38:00 Final Observation Date Value Abnormality Reference (Units ) Status BUN 07/13/2023 05:38:00 33 Above high normal 6-20 (mg/dL) Final Creatinine 07/13/2023 05:38:00 1.3 Above high normal 0.6-1.2 (mg/dL) Final Glomerular filtration rate/1.73 sq M.predicted [Volume Rate/Area] in Serum, Plasma or Blood by Creatinine-based formula (CKD-EPI) 07/13/2023 05:38:00 52 Below low normal >=60 (mL/min) Final eGFR is calculated based on the CKD-EPI 2020 equation SODIUM 07/13/2023 05:38:00 136 135-146 (m mol/L) Final Potassium 07/13/2023 05:38:00 4.1 3.5-5.1 (m mol/L) Final Cl 07/13/2023 05:38:00 99 98-107 (mm ol/L) Final CO2 07/13/2023 05:38:00 24 22-32 (mmo l/L) Final Anion gap 07/13/2023 05:38:00 13 7-15 (mmol /L) Final Glucose 07/13/2023 05:38:00 109 70-120 (mg /dL) Final Calcium 07/13/2023 05:38:00 8.3 Below low normal 8.4 -10.2 (mg/dL) Final Performing Location [facility] [place] [address] [place] [address]
--- OUTSIDE RECORDS SUMMARY | 2023-09-23 21:05 | External Medical Summary | Summary of Care ---
Author Name Unknown Organization [facility] Address [address] [place] [address] Phone [phone] Care Team Providers Care Registered Vascular Technologist (Rvt) Name Role Phone Jaelyn Pemberton MD Primary Care Prov ider Reason for Visit * Reason Onset Date Comments Senior Care Visit 07/12/2023 Encounter Details Date Type Department Care Team Description 07/12/2023 Senior Care Visit [facility] [address] [place] [address] Thao Fernandez PA-C [address] [place] [address] Subacute cough*; Chest congestion; History of 2019 novel coronavirus disease (COVID-19); Persistent atrial fibrillation (HCC); Type 2 diabetes mellitus with stage 3b chronic kidney disease, without long-term current use of insulin (HCC); Coronary artery disease involving king salmon coronary artery of king salmon heart without angina pectoris Allergies No known active allergiesdocumented as of this encounter (statuses as of 07/12/2023) Medications Medication Sig Dispensed Refills Start Date [...] Tablet (Eliquis)Indications:C oronary artery disease involving king salmon coronary artery of king salmon heart without angina pectoris Take 1 Tablet [...] pressure) < 140/90,Coronary artery disease involving king salmon coronary artery of king salmon heart without angina pectoris Take 1 Tablet [...] class 2 (HCC),Coronary artery disease involving king salmon coronary artery of king salmon heart without angina pectoris TAKE 1/2 TAB BY MOUTH IN THE MORNING *HOLD IF BLOOD PRESSURE IS LESS THAN 110/70 45 Tablet 2 06/15/2023 Active documented as of this encounter (statuses as of 07/12/2023) Active Problems Problem Noted Date Closed fracture [...] Hyperlipidemia Coronary artery disease invo lving king salmon coronary artery of king salmon heart without angina pectoris Moderate aortic stenosis by prior echoca rdiogram documented as of this encounter (statuses as of 07/12/2023) Resolved Problems Problem Noted Date Resolved Date [...] as of this encounter (statuses as of 07/12/2023) Immunizations Name Administration Dates Next Due COVID-19 [...] Team Description 07/18/2023 Office Visit Family Medicine Vineet Haney, Jaelyn Rutherford MD [address] [place] [address] [place] [address] 09/18/2023 Office Visit Cardiology Shorty Rich, [address] [place] [address] 09/26/2023 Office Visit Urology Vitaliy Maria MD [address] [place] [address] [place] [phone] 12/17/2023 Office Visit Dermatology Keira De Jesus PA-C [address] [place] [address] [place] [address] 05/02/2024 Nurse Only Ancillary [place], Nurse Annual Wellness [address] [place] [address] [place] [address] Health Maintenance Due Date Last Done Comments Diabetic Foot Exam 04/22/2022 04/22/2021, 09/23/2019 COVID-19 Vaccine (5 - Pfizer series) 05/31/2022 04/05/2022, 08/05/2021, 12/12/2020, Additional history exists Influenza Vaccine (FLU shot) (#1) 2023 07/11/2022, 09/09/2021, 07/10/2020, Additional history exists Albumin/Creatinine Ratio 07/11/2023 07/11/2022, 08/30 HbA1c 07/15/2023 01/12/2023, 09/04/2022, 11/22/2021, Additional history exists CKD PHOS USE SMARTSET 23907 01/13/2024 01/12/2023, 0 05/04/2021 Depression Screening 04/30/2024 04/30/2023 CKD HGB USE SMARTSET 31637 06/29/202406/29, 06/15/2023, 06/11/2023, Additional history exists DTaP,Tdap,and [...] as of this encounter Visit Diagnoses Diagnosis Subacute cough- Primary Cough Chest congestion Other symptoms involving respiratory system and chest History of 2019 novel coronavirus disease (COVID-19) Persistent atrial fibrillation (HCC) Atrial fibrillation Type 2 diabetes mellitus with stage 3b chronic kidney disease, without long-term current use of insulin (HCC) Coronary artery disease involving king salmon coronary artery of king salmon heart without angina pectoris documented in this encounter Advance Directives Documents on File Type Date Recorded 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
--- OUTSIDE RECORDS SUMMARY | 2023-09-23 21:05 | External Medical Summary ---
Author Name Unknown Address Unknown Organization [id number]:LABORATORY [facility] - [address] [place] [address] Laboratory Report Ordering Provider Test Date Status KALEY KERNS 06/29/2023 05:42:00 Final Deficient: <20 ng/mL
Ins ufficient: 20-29 ng/mL
Recommended/Optimum:30-50 ng/mL

Vitamin D intoxication is rare. If suspicious of Vitamin D toxicity, evaluation of serum Calcium and PTH is recommended. Observation Date Value Abnormality Reference (Units ) Status 25-OH Vitamin D total 06/29/2023 05:42:00 30 >19 (ng/mL) Final Performing Location LABORATORY C - [address] [place] [address]
--- OUTSIDE RECORDS SUMMARY | 2023-09-23 21:05 | External Medical Summary ---
Author Name Unknown Address Unknown Organization [id number]:LABORATORY [facility] - [address] [facility] [address] Laboratory Report Ordering Provider Test Date Status KALEY KERNS 07/13/2023 05:38:00 Final Observation Date Value Abnormality Reference (Units ) Status SYNC LEUKOCYTES IN BLOOD BY AUTOMATED COUNT 07/13/2023 05:38:00 7.36 4.00-10.80 (K/uL) Final Segs 07/13/2023 05:38:00 73.4 40.0-75.0 (%) Final Lymphs % 07/13/2023 05:38:00 11.0 Below low normal 18.0-42.0 (%) Final Monos 07/13/2023 05:38:00 11.3 Above high normal 1.0-11.0 (%) Final Eosinophils 07/13/2023 05:38:00 2.9 0.0-6.0 (%) Final Basos 07/13/2023 05:38:00 0.7 0.0-2.0 (%) Final Immature Granulocyte, Percent 07/13/2023 05:38:00 0.7 0.0-2.0 (%) Final Absolute Segs 07/13/2023 05:38:00 5.41 1.80-7.70 (K/uL) Final Lymphs, absolute 07/13/2023 05:38:00 0.81 Below low normal 1.00-4.80 (K/ul) Final Monos, Abs 07/13/2023 05:38:00 0.83 0.00-1.10 (K/uL) Final Eos, Abs 07/13/2023 05:38:00 0.21 0.00-0.70 (K/uL) Final Basos, Abs 07/13/2023 05:38:00 0.05 0.00-0.20 (K/uL) Final Immature Granulocytes, Number 07/13/2023 05:38:00 0.05 0.00-0.20 (K/uL) Final Performing Location LABORATORY [facility] - [facility] [address] [facility] [address]
--- OUTSIDE RECORDS SUMMARY | 2023-09-23 21:06 | External Medical Summary | Continuity Of Care Document ---
Author Name Unknown Address [address] [place] [address] Organization [facility] ( ) Care Team Providers Care Appraiser Land Name Role Phone Angel Coronel Primary Care Provider [phone] Problems Code Description Start Date End Date [...] Weakness 05/30/2023 Active M62.81 Muscle weakness (generalized) 05/30/2023 Active Z74.1 Need for assistance with personal care 05/30/20 Active VITAL SIGNS Date Time Diastolic blood pressure Systolic blood pressure Body height Body weight Temperature SpO2 Blood Sugar Pulse Respirations 731 12592 9 52.00 mm[Hg] - Sitting 116.00 mm[Hg] - Sitting 69 NI 160.00 NI 98.50 Oral 97.00 % 18.00/min 731 93004 4 52.00 mm[Hg] - Lying Down 116.00 mm[Hg] - Lying Down 98.50 Ear 64.00/ min 18.00/min 95252 801 68467 3 73.00 mm[Hg] - Sitting 137.00 mm[Hg] - Sitting 160.00 NI 98.10 Oral 93.00 % 18.00/min 39274 801 95516 6 76727 801 91928 5 50.00 mm[Hg] - Sitting 118.00 mm[Hg] - Sitting 96.80 Oral 96.00 % 60.00/ min 801 18026 0 162.00 NI 801 03368 8 161.00 NI 801 54170 9 56.00 mm[Hg] - Sitting 95.00 mm[Hg] - Sitting 96.00 Ear 61.00/ min 18.00/min 80993 802 97364 3 56.00 mm[Hg] - Sitting 95.00 mm[Hg] - Sitting 96.00 Ear 61.00/ min 18.00/min 87276 802 96354 6 89525 802 93495 6 56.00 mm[Hg] - Sitting 95.00 mm[Hg] - Sitting 96.00 Ear 61.00/ min 18.00/min 45063 802 30903 1 161.00 NI 22079 802 29940 5 161.00 NI 99632 803 28513 5 69.00 mm[Hg] - Sitting 154.00 mm[Hg] - Sitting 98.60 Ear 91.00 % 64.00/ min 55820 803 22259 7 64.00 mm[Hg] - Sitting 113.00 mm[Hg] - Sitting 97.20 Oral 94.00 % 71.00/ min 09546 804 09070 3 67.00 mm[Hg] - Sitting 173.00 mm[Hg] - Sitting 97.20 Ear 93.00 % 62.00/ min 02433 804 22911 5 157.00 NI 30561 804 77730 6 161.00 NI 73126 804 20743 1 68.00 mm[Hg] - Sitting 178.00 mm[Hg] - Sitting 99.00 Ear 93.00 % 66.00/ min 805 77028 9 65.00 mm[Hg] - Sitting 165.00 mm[Hg] - Sitting 97.30 Oral 96.00 % 60.00/ min 805 91123 0 68.00 mm[Hg] - Sitting 172.00 mm[Hg] - Sitting 96.20 Ear 95.00 % 60.00/ min 806 63317 7 63.00 mm[Hg] - Lying Down 140.00 mm[Hg] - Lying Down 97.80 Ear 96.00 % 63.00/ min 806 98451 7 62.00 mm[Hg] - Sitting 147.00 mm[Hg] - Sitting 97.20 Oral 96.00 % 60.00/ min 807 23715 9 69.00 mm[Hg] - Sitting 142.00 mm[Hg] - Sitting 98.60 Ear 97.00 % 68.00/ min 807 69841 2 64.00 mm[Hg] - Sitting 106.00 mm[Hg] - Sitting 96.00 Oral 96.00 % 60.00/ min 808 12148 5 59.00 mm[Hg] - Sitting 143.00 mm[Hg] - Sitting 100.00 Ear 97.00 % 64.00/ min 809 35942 2 157.00 NI 809 60384 8 48.00 mm[Hg] - Sitting 88.00 mm[Hg] - Sitting 97.80 Ear 96.00 % 60.00/ min 809 87175 8 157.00 NI 809 15743 0 62.00 mm[Hg] - Sitting 112.00 mm[Hg] - Sitting 97.50 Oral 97.00 % 60.00/ min 810 91998 8 56.00 mm[Hg] - Sitting 141.00 mm[Hg] - Sitting 97.00 Oral 98.00 % 60.00/ min 810 70782 9 63.00 mm[Hg] - Sitting 115.00 mm[Hg] - Sitting 97.70 Ear 96.00 % 60.00/ min 811 33307 6 69.00 mm[Hg] - Sitting 122.00 mm[Hg] - Sitting 98.50 Ear 100.0 0% 61.00/ min 811 52628 9 156.00 NI 51417 811 96284 4 156.00 NI 811 18377 4 55.00 mm[Hg] - Sitting 106.00 mm[Hg] - Sitting 96.50 Ear 97.00 % 60.00/ min 812 52390 8 71.00 mm[Hg] - Sitting 127.00 mm[Hg] - Sitting 98.50 Ear 99.00 % 67.00/ min 813 05881 6 68.00 mm[Hg] - Sitting 149.00 mm[Hg] - Sitting 98.10 Ear 94.00 % 64.00/ min 813 50495 1 68.00 mm[Hg] - Sitting 128.00 mm[Hg] - Sitting 98.00 Oral 98.00 % 60.00/ min 4 62797 0 68.00 mm[Hg] - Sitting 137.00 mm[Hg] - Sitting 96.70 Ear 98.00 % 64.00/ min 814 23057 3 156.00 NI 814 96420 9 155.50 NI 814 24861 2 67.00 mm[Hg] - Sitting 101.00 mm[Hg] - Sitting 97.10 Oral 96.00 % 60.00/ min 5 15196 3 70.00 mm[Hg] - Sitting 130.00 mm[Hg] - Sitting 96.20 Oral 97.00 % 60.00/ min 815 65143 4 55.00 mm[Hg] - Sitting 96.00 mm[Hg] - Sitting 97.20 Ear 95.00 % 62.00/ min 816 26708 2 68.00 mm[Hg] - Sitting 124.00 mm[Hg] - Sitting 97.80 Ear 95.00 % 60.00/ min 88596 817 46006 2 61.00 mm[Hg] - Sitting 143.00 mm[Hg] - Sitting 98.00 Oral 96.00 % 60.00/ min 817 65246 8 54.00 mm[Hg] - Sitting 126.00 mm[Hg] - Sitting 97.60 Oral 97.00 % 59.00/ min 74672 817 44577 3 72.00 mm[Hg] - Sitting 109.00 mm[Hg] - Sitting 98.00 Oral 96.00 % 60.00/ min 18824 818 93820 4 70.00 mm[Hg] - Sitting 135.00 mm[Hg] - Sitting 98.10 Ear 95.00 % 61.00/ min 38500 818 08592 3 70.00 mm[Hg] - Sitting 129.00 mm[Hg] - Sitting 98.20 Ear 96.00 % 60.00/ min 84078 819 51345 5 52.00 mm[Hg] - Sitting 113.00 mm[Hg] - Sitting 97.90 Ear 98.00 % 60.00/ min 03677 819 85815 3 51.00 mm[Hg] - Sitting 108.00 mm[Hg] - Sitting 97.20 Oral 95.00 % 60.00/ min 16318 820 29149 8 68.00 mm[Hg] - Sitting 125.00 mm[Hg] - Sitting 97.40 Oral 92.00 % 60.00/ min 821 77192 2 52.00 mm[Hg] - Sitting 103.00 mm[Hg] - Sitting 97.70 Oral 95.00 % 60.00/ min 821 51175 3 63.00 mm[Hg] - Sitting 124.00 mm[Hg] - Sitting 98.00 Oral 94.00 % 60.00/ min 821 01399 3 148.00 NI 821 72862 1 52.00 mm[Hg] - Sitting 105.00 mm[Hg] - Sitting 98.60 Ear 95.00 % 61.00/ min Immunizations Vaccine Date Status COVID-19 11/21/2020 Completed COVID-19 12/12/2020 Completed COVID-19 08/05/2021 Completed COVID-19 04/05/2022 Completed Influenza 09/09/2021 Completed (PCV13)Pneumococcal 08/20/2019 Completed (PPSV23)Pneumococcal 08/23/2020 Completed Shingles 08/08/2020 Completed TDaP 08/23/2020 Completed Shingles 2 04/22/2021 Completed
--- OUTSIDE RECORDS SUMMARY | 2023-09-23 21:06 | External Medical Summary ---
Author Name Unknown Address Unknown Organization K0G:[facility] - [address] [place] [address] Laboratory Report Ordering Provider Test Date Status KALEY KERNS 06/15/2023 06:45:00 Final Observation Date Value Abnormality Reference (Units ) Status HCT 06/15/2023 06:45:00 25.9 Below low normal 40. 0-48.4 (%) Final Performing Location [facility] 0 - [address] [place] [address]
--- OUTSIDE RECORDS SUMMARY | 2023-09-23 21:06 | External Medical Summary ---
Author Name Unknown Address Unknown Organization K0G:LABORATORY [facility] 57-[address] - [address] [place] [address] Laboratory Report Ordering Provider Test Date Status KALEY KERNS 06/15/2023 06:45:00 Final Observation Date Value Abnormality Reference (Units ) Status BUN 06/15/2023 06:45:00 22 Above high normal 6-20 (mg/dL) Final Creatinine 06/15/2023 06:45:00 1.2 0.6-1.2 (mg/dL) Final Glomerular filtration rate/1.73 sq M.predicted [Volume Rate/Area] in Serum, Plasma or Blood by Creatinine-based formula (CKD-EPI) 06/15/2023 06:45:00 58 Below low normal >=60 (mL/min) Final eGFR is calculated based on the CKD-EPI 2020 equation SODIUM 06/15/2023 06:45:00 137 135-146 (m mol/L) Final Potassium 06/15/2023 06:45:00 4.4 3.5-5.1 (m mol/L) Final Cl 06/15/2023 06:45:00 105 98-107 (mm ol/L) Final CO2 06/15/2023 06:45:00 24 22-32 (mmo l/L) Final Anion gap 06/15/2023 06:45:00 8 7-15 (mmol /L) Final Glucose 06/15/2023 06:45:00 85 70-120 (mg /dL) Final Calcium 06/15/2023 06:45:00 8.2 Below low normal 8.4 -10.2 (mg/dL) Final Performing Location LABORATORY [place] 57-1 0 - [address] [place] [address]
--- OUTSIDE RECORDS SUMMARY | 2023-09-23 21:06 | External Medical Summary | Summary of Care ---
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 Allergies No known active allergiesdocumented as of this encounter (statuses as of 06/15/2023) Medications Medication Sig Dispensed Refills Start Date [...] 12/19/2022 Active Apixaban 2.5 MG Oral Tablet (Eliquis)Indication s:Coronary artery disease involving sleetmute coronary artery of [...] 02/19/2023 Active Folic Acid 1 MG Oral TabletIndications:A nemia, unspecified type TAKE 1 TABLET BY MOUTH EVERY DAY IN THE MORNING 90 Tablet 1 03/05/2023 Active Atorvastatin Calcium 40 MG Oral Tablet (Lipitor)Indication s:Hyperlipidemia, unspecified hyperlipidemia type TAKE 1 TABLET BY MOUTH EVERYDAY AT BEDTIME 90 Tablet 1 04/07/2023 Active Carvedilol 3.125 MG Oral Tablet (Coreg)Indications: [...] THAN 110/70 45 Tablet 2 06/15/2023 Active Losartan Potassium 25 MG Oral Tablet (Cozaar)Indications :Hypertension goal BP (blood pressure) < 140/90,Systolic CHF with reduced left ventricular function, NYHA class 2 (HCC),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.] encounter Miscellaneous Notes * Telephone Encounter - Rito Mejia [facility] - 06/15/2023 12:41 PM EDTSigned Prescriptions: Disp Refills Losartan Potassium 25 MG Oral Tablet (Coza*45 Tab*2 Sig: TAKE 1/2 TAB BY MOUTH IN THE MORNING *HOLD IF BLOOD PRESSURE IS LESS THAN 110/70Authorizing Provider: SHANTE STEELE User: RITO MEJIA documented in this encounter Plan of Treatment Upcoming Encounters Date Type Specialty Care Team Description 06/19/2023 Cardiac Studies Cardiology [facility] [address] [place] [address] 07/18/2023 Office Visit Family Medicine Shante Pemberton MD [address] [place] [address] [place] [address] 08/02/2023 Office Visit Cardiology Shorty Rich DO [address] [place] [address] 09/18/2023 Office Visit Cardiology Shorty Rich DO [address] [place] [address] 09/26/2023 Office Visit Urology Vitaliy Maria MD [address] [place] [address] [place] [id number] 12/17/2023 Office Visit Dermatology Keira De Jesus PA-C [address] [place] [address] [place] [address] 05/02/2024 Nurse Only Ancillary [place], Nurse Annual Wellness [address] [place] [address] [place] [address] Health Maintenance Due Date Last Done Comments COVID-19 Vaccine (5 - Pfizer series) 05/31/2022 04/05/2022, 08/05/2021, 12/12/2020, Additional history exists Influenza Vaccine (FLU shot) (#1) 2023 07/11/2022, 09/09/2021, 07/10/2020, Additional history exists Albumin/Creatinine Ratio 07/11/2023 07/11/2022, 08/30 HbA1c 07/15/2023 01/12/2023, 04/2022, 11/22/2021, Additional history exists CKD PHOS USE SMARTSET 34619 01/13/2024 01/12/2023, 0 05/04/2021 Depression Screening, Annual for Pts 12 and Over 04/30/2024 04/30/2023 CKD HGB USE SMARTSET 37112 06/15/202406/15, 06/11/2023, 06/08/2023, Additional history exists DTaP,Tdap,and Td Vaccines (2 [...] as of this encounter Visit Diagnoses Diagnosis Hypertension goal BP (blood pressure) < 140/90 Unspecified essential hypertension Systolic CHF with reduced left ventricular function, NYHA class 2 (HCC) Unspecified systolic heart failure 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 documented in this encounter Advance Directives Documents on File Type Date Recorded Patient Field Party Manager Expl anation Power of Design Maintenance Engineer 01/13/2019 POWER OF A TTORNEY Healthcare Agents on File Name Relationship Healthcare Agent Relationship Communication Ian Henriquez Other - (no specific identity) Health Care Agent (per Health Care Power of Design Maintenance Engineer document) Care Teams Drama Teacher Relationship Specialty Start Date End Date Shante Pemberton MD [address] [place] [address] [place] [phone] PCP - General Family Medicine 08/20/19 documented as of this encounter
--- OUTSIDE RECORDS SUMMARY | 2023-09-23 21:06 | External Medical Summary | Summary of Care ---
Author Name Unknown Organization [facility] Address [address] [place] [address] Phone [phone] Care Team Providers Care Museum Librarian Name Role Phone Jaelyn Pemberton MD Primary Care Prov ider Encounter Details Date Type Department Care Team Description 06/26/2023 Orders Only Lab Mobile Phlebotomy [facility] [address] [place], [place] [id number] Angel Coronel MD [address] [place] [address] [place] [phone] COVID-19*; Anemia; Vitamin D deficiency Allergies No known active allergiesdocumented as of this encounter (statuses as of 06/26/2023) Medications Medication Sig Dispensed Refills Start Date [...] Oral Tablet (Eliquis)Indications:C oronary artery disease involving tulalip coronary artery of tulalip heart without angina pectoris Take 1 Tablet [...] (blood pressure) < 140/90,Coronary artery disease involving tulalip coronary artery of tulalip heart without angina pectoris Take 1 Tablet [...] NYHA class 2 (HCC),Coronary artery disease involving tulalip coronary artery of tulalip heart without angina pectoris TAKE 1/2 TAB BY MOUTH IN THE MORNING *HOLD IF BLOOD PRESSURE IS LESS THAN 110/70 45 Tablet 2 06/15/2023 Active documented as of this encounter (statuses as of 06/26/2023) Active Problems Problem Noted Date Closed fracture [...] stenosis Hyperlipidemia Coronary artery disease invo lving tulalip coronary artery of tulalip heart without angina pectoris Moderate aortic stenosis by prior echoca rdiogram documented as of this encounter (statuses as of 06/26/2023) Resolved Problems Problem Noted Date Resolved Date [...] as of this encounter (statuses as of 06/26/2023) Immunizations Name Administration Dates Next Due COVID-19 [...] Encounters Date Type Specialty Care Team Description 06/27/2023 Laboratory Laboratory Processing [address] [place] [address] 07/18/2023 Office Visit Family Medicine Jaelyn Pemberton MD [address] [place] [address] [place] [address] 09/18/2023 Office Visit Cardiology Shorty Rich, [address] [place] [address] 09/26/2023 Office Visit Urology Vitaliy Maria MD [address] [place] [address] [place] [address] 12/17/2023 Office Visit Dermatology Keira De Jesus PA-C [address] [place] [address] [place] [address] 05/02/2024 Nurse Only Ancillary [place], Nurse Annual Wellness [address] [place] [address] [place] [address] Scheduled Orders Name Type Priority Associated Diagnoses Orde r Schedule CBC Lab Routine COVID-19 Anemia Vitamin D deficiency Expected: 06/27/2023, Expires: 06/26/2024 25-HYDROXY VITAMIN D Lab Routine COVID-19 Anemia Vitamin D deficiency Expected: 06/27/2023, Expires: 06/26/2024 Health Maintenance Due Date Last Done Comments COVID-19 Vaccine (5 - Pfizer series) 05/31/2022 04/05/2022, 08/05/2021, 12/12/2020, Additional history exists Influenza Vaccine (FLU shot) (#1) 2023 07/11/2022, 09/09/2021, 07/10/2020, Additional history exists Albumin/Creatinine Ratio 07/11/2023 07/11/2022, 08/30 HbA1c 07/15/2023 01/12/2023, 09/0 04/2022, 11/22/2021, Additional history exists CKD PHOS USE SMARTSET 57382 01/13/2024 01/12/2023, 0 05/04/2021 Depression Screening, Annual for Pts 12 and Over 04/30/2024 04/30/2023 CKD HGB USE SMARTSET 38570 06/15/202406/15, 06/11/2023, 06/08/2023, Additional history exists DTaP,Tdap,and [...] as of this encounter Visit Diagnoses Diagnosis COVID-19- Primary Anemia Anemia, unspecified Vitamin D deficiency Unspecified vitamin D deficiency documented in this encounter Advance Directives Documents on File Type Date Recorded Patient Commissioner Public Works Expl anation Power of Dive Superintendent 01/13/2019 POWER OF A TTORNEY Healthcare Agents on File Name Relationship Healthcare Agent Relationship Communication Ian Henriquez Other - (no specific identity) Health Care Agent (per Health Care Power of Dive Superintendent document) Care Teams Museum Librarian Relationship Specialty Start Date End Date Jaelyn Pemberton MD [address] [place] [address] [place] [phone] PCP - General Family Medicine 08/20/19 documented as of this encounter
--- OUTSIDE RECORDS SUMMARY | 2023-09-23 21:06 | External Medical Summary | Summary of Care ---
Author Name Unknown Organization [facility] Address [address] [place] [address] Phone [phone] Care Team Providers Care Recovery Coordinator Name Role Phone Jaelyn Pemberton MD Primary Care Prov ider Reason for Visit * Reason Onset Date Comments Fdc Visit 06/25/2023 Regulatory Encounter Details Date Type Department Care Team Description 06/25/2023 Fdc Visit [facility] [address] [place] [address] Thao Fernandez PA-C [address] [place] [address] Closed fracture of left inferior pubic ramus with routine healing, subsequent encounter*; Closed nondisplaced fracture of medial wall of left acetabulum with routine healing, subsequent encounter; Closed nondisplaced zone III fracture of sacrum with routine healing, subsequent encounter; COVID-19 virus infection; Coronary artery disease involving grindstone coronary artery of grindstone heart without angina pectoris; Systolic CHF with reduced left ventricular function, NYHA class 2 (HCC); Type 2 diabetes mellitus with stage 3b chronic kidney disease, without long-term current use of insulin (HCC); Persistent atrial fibrillation (HCC) Allergies No known active allergiesdocumented as of this encounter (statuses as of 06/25/2023) Medications Medication Sig Dispensed Refills Start Date [...] Oral Tablet (Eliquis)Indications:C oronary artery disease involving grindstone coronary artery of grindstone heart without angina pectoris Take 1 Tablet [...] (blood pressure) < 140/90,Coronary artery disease involving grindstone coronary artery of grindstone heart without angina pectoris Take 1 Tablet [...] NYHA class 2 (HCC),Coronary artery disease involving grindstone coronary artery of grindstone heart without angina pectoris TAKE 1/2 TAB BY MOUTH IN THE MORNING *HOLD IF BLOOD PRESSURE IS LESS THAN 110/70 45 Tablet 2 06/15/2023 Active documented as of this encounter (statuses as of 06/25/2023) Active Problems Problem Noted Date Closed fracture [...] stenosis Hyperlipidemia Coronary artery disease invo lving grindstone coronary artery of grindstone heart without angina pectoris Moderate aortic stenosis by prior echoca rdiogram documented as of this encounter (statuses as of 06/25/2023) Resolved Problems Problem Noted Date Resolved Date [...] as of this encounter (statuses as of 06/25/2023) Immunizations Name Administration Dates Next Due COVID-19 mRNA, LNP-s, No Pre serve, 2-Dose Series (WoofRadar) 08/05/2021,12/12/2020,11/21/2020 COVID-19, LNP-s, No Preserve , Rashawn-sucrose, [...] Office Visit Family Medicine Jaelyn Pemberton MD [address] [place] [address] [place] [address] 09/18/2023 Office Visit Cardiology Shorty Rich, [address] [place] [address] 09/26/2023 Office Visit Urology Vitaliy Maria MD [address] [place] [address] [place] [address] 12/17/2023 Office Visit Dermatology Keira De Jesus PA-C [address] [place] [address] [place] [address] 05/02/2024 Nurse Only Ancillary Paolo, Nurse Annual Wellness [address] [place] [address] [place] [phone] Health Maintenance Due Date Last Done Comments COVID-19 Vaccine (5 - Pfizer series) 05/31/2022 04/05/2022, 08/05/2021, 12/12/2020, Additional history exists Influenza Vaccine (FLU shot) (#1) 2023 07/11/2022, 09/09/2021, 07/10/2020, Additional history exists Albumin/Creatinine Ratio 07/11/2023 07/11/2022, 08/30 HbA1c 07/15/2023 01/12/2023, 090 04/2022, 11/22/2021, Additional history exists CKD PHOS USE SMARTSET 20526 01/13/2024 01/12/2023, 0 05/04/2021 Depression Screening, Annual for Pts 12 and Over 04/30/2024 04/30/2023 CKD HGB USE SMARTSET 55577 06/15/202406/15, 06/11/2023, 06/08/2023, Additional history exists DTaP,Tdap,and [...] of this encounter Visit Diagnoses Diagnosis Closed fracture of left inferior pubic ramus with routine healing, subsequent encounter- Primary Closed nondisplaced fracture of medial wall of left acetabulum with routine healing, subsequent encounter Closed nondisplaced zone III fracture of sacrum with routine healing, subsequent encounter COVID-19 virus infection Coronary artery disease involving grindstone coronary artery of grindstone heart without angina pectoris Systolic CHF with reduced left ventricular function, NYHA class 2 (HCC) Unspecified systolic heart failure Type 2 diabetes mellitus with stage 3b chronic kidney disease, without long-term current use of insulin (HCC) Persistent atrial fibrillation (HCC) Atrial fibrillation documented in this encounter Advance Directives Documents on File Type Date Recorded Patient Commercial Assistant Expl anation Power of Unit Tender 01/13/2019 POWER OF A TTORNEY Healthcare Agents on File Name Relationship Healthcare Agent Relationship Communication Ian Henriquez Other - (no specific identity) Health Care Agent (per Health Care Power of Unit Tender document) Care Teams Recovery Coordinator Relationship Specialty Start Date End Date Jaelyn Pemberton MD [address] [place] [address] [place] [phone] PCP - General Family Medicine 08/20/19 documented as of this encounter
--- OUTSIDE RECORDS SUMMARY | 2023-09-23 21:06 | External Medical Summary | Continuity Of Care Document ---
Author Name Unknown Address [address] [place] [address] Organization [facility] ( ) Care Team Providers Care Home Health Care Respiratory Therapist Name Role Phone Angel Coronel Primary Care Provider [phone] Problems Code Description Start Date End Date [...] Temperature SpO2 Blood Sugar Pulse Respirations 731 20338 9 52.00 mm[Hg] - Sitting 116.00 mm[Hg] - Sitting 69 NI 160.00 NI 98.50 Oral 97.00 % 18.00/min 731 21772 4 52.00 mm[Hg] - Lying Down 116.00 mm[Hg] - Lying Down 98.50 Ear 64.00/ min 18.00/min 36203 801 51536 3 73.00 mm[Hg] - Sitting 137.00 mm[Hg] - Sitting 160.00 NI 98.10 Oral 93.00 % 18.00/min 43692 801 03521 6 86776 801 91665 5 50.00 mm[Hg] - Sitting 118.00 mm[Hg] - Sitting 96.80 Oral 96.00 % 60.00/ min 801 31874 0 162.00 NI 801 19643 8 161.00 NI 801 81094 9 56.00 mm[Hg] - Sitting 95.00 mm[Hg] - Sitting 96.00 Ear 61.00/ min 18.00/min 70891 802 55297 3 56.00 mm[Hg] - Sitting 95.00 mm[Hg] - Sitting 96.00 Ear 61.00/ min 18.00/min 37210 802 67690 6 18118 802 84715 6 56.00 mm[Hg] - Sitting 95.00 mm[Hg] - Sitting 96.00 Ear 61.00/ min 18.00/min 31863 802 60245 1 161.00 NI 35637 802 56117 5 161.00 NI 57442 803 39267 5 69.00 mm[Hg] - Sitting 154.00 mm[Hg] - Sitting 98.60 Ear 91.00 % 64.00/ min 20201 803 93981 7 64.00 mm[Hg] - Sitting 113.00 mm[Hg] - Sitting 97.20 Oral 94.00 % 71.00/ min 91718 804 93258 3 67.00 mm[Hg] - Sitting 173.00 mm[Hg] - Sitting 97.20 Ear 93.00 % 62.00/ min 51688 804 66071 5 157.00 NI 77942 804 67002 6 161.00 NI 37175 804 45172 1 68.00 mm[Hg] - Sitting 178.00 mm[Hg] - Sitting 99.00 Ear 93.00 % 66.00/ min 805 98508 9 65.00 mm[Hg] - Sitting 165.00 mm[Hg] - Sitting 97.30 Oral 96.00 % 60.00/ min 805 58530 0 68.00 mm[Hg] - Sitting 172.00 mm[Hg] - Sitting 96.20 Ear 95.00 % 60.00/ min 806 26302 7 63.00 mm[Hg] - Lying Down 140.00 mm[Hg] - Lying Down 97.80 Ear 96.00 % 63.00/ min 806 61235 7 62.00 mm[Hg] - Sitting 147.00 mm[Hg] - Sitting 97.20 Oral 96.00 % 60.00/ min 807 66371 9 69.00 mm[Hg] - Sitting 142.00 mm[Hg] - Sitting 98.60 Ear 97.00 % 68.00/ min 807 42273 2 64.00 mm[Hg] - Sitting 106.00 mm[Hg] - Sitting 96.00 Oral 96.00 % 60.00/ min 808 43002 5 59.00 mm[Hg] - Sitting 143.00 mm[Hg] - Sitting 100.00 Ear 97.00 % 64.00/ min 809 33531 2 157.00 NI 809 72246 8 48.00 mm[Hg] - Sitting 88.00 mm[Hg] - Sitting 97.80 Ear 96.00 % 60.00/ min 809 54396 8 157.00 NI 809 49113 0 62.00 mm[Hg] - Sitting 112.00 mm[Hg] - Sitting 97.50 Oral 97.00 % 60.00/ min 810 93223 8 56.00 mm[Hg] - Sitting 141.00 mm[Hg] - Sitting 97.00 Oral 98.00 % 60.00/ min 810 39363 9 63.00 mm[Hg] - Sitting 115.00 mm[Hg] - Sitting 97.70 Ear 96.00 % 60.00/ min 811 77283 6 69.00 mm[Hg] - Sitting 122.00 mm[Hg] - Sitting 98.50 Ear 100.0 0% 61.00/ min 811 49149 9 156.00 NI 65898 811 08142 4 156.00 NI 811 39710 4 55.00 mm[Hg] - Sitting 106.00 mm[Hg] - Sitting 96.50 Ear 97.00 % 60.00/ min 812 45667 8 71.00 mm[Hg] - Sitting 127.00 mm[Hg] - Sitting 98.50 Ear 99.00 % 67.00/ min 813 42219 6 68.00 mm[Hg] - Sitting 149.00 mm[Hg] - Sitting 98.10 Ear 94.00 % 64.00/ min 813 60802 1 68.00 mm[Hg] - Sitting 128.00 mm[Hg] - Sitting 98.00 Oral 98.00 % 60.00/ min 4 97197 0 68.00 mm[Hg] - Sitting 137.00 mm[Hg] - Sitting 96.70 Ear 98.00 % 64.00/ min 814 62905 3 156.00 NI 814 46226 9 155.50 NI 814 94447 2 67.00 mm[Hg] - Sitting 101.00 mm[Hg] - Sitting 97.10 Oral 96.00 % 60.00/ min 5 43212 3 70.00 mm[Hg] - Sitting 130.00 mm[Hg] - Sitting 96.20 Oral 97.00 % 60.00/ min 815 90544 4 55.00 mm[Hg] - Sitting 96.00 mm[Hg] - Sitting 97.20 Ear 95.00 % 62.00/ min 816 36225 2 68.00 mm[Hg] - Sitting 124.00 mm[Hg] - Sitting 97.80 Ear 95.00 % 60.00/ min 58927 817 68550 2 61.00 mm[Hg] - Sitting 143.00 mm[Hg] - Sitting 98.00 Oral 96.00 % 60.00/ min 817 30425 8 54.00 mm[Hg] - Sitting 126.00 mm[Hg] - Sitting 97.60 Oral 97.00 % 59.00/ min 87490 817 78681 3 72.00 mm[Hg] - Sitting 109.00 mm[Hg] - Sitting 98.00 Oral 96.00 % 60.00/ min 14924 818 47243 4 70.00 mm[Hg] - Sitting 135.00 mm[Hg] - Sitting 98.10 Ear 95.00 % 61.00/ min 26696 818 52494 3 70.00 mm[Hg] - Sitting 129.00 mm[Hg] - Sitting 98.20 Ear 96.00 % 60.00/ min 07431 819 19982 5 52.00 mm[Hg] - Sitting 113.00 mm[Hg] - Sitting 97.90 Ear 98.00 % 60.00/ min 90433 819 31830 3 51.00 mm[Hg] - Sitting 108.00 mm[Hg] - Sitting 97.20 Oral 95.00 % 60.00/ min 80018 820 74642 8 68.00 mm[Hg] - Sitting 125.00 mm[Hg] - Sitting 97.40 Oral 92.00 % 60.00/ min 821 15947 2 52.00 mm[Hg] - Sitting 103.00 mm[Hg] - Sitting 97.70 Oral 95.00 % 60.00/ min 821 95463 3 63.00 mm[Hg] - Sitting 124.00 mm[Hg] - Sitting 98.00 Oral 94.00 % 60.00/ min 821 59612 3 148.00 NI 821 89240 1 52.00 mm[Hg] - Sitting 105.00 mm[Hg] - Sitting 98.60 Ear 95.00 % 61.00/ min Immunizations Vaccine Date Status COVID-19 11/21/2020 Completed COVID-19 12/12/2020 Completed COVID-19 08/05/2021 Completed COVID-19 04/05/2022 Completed Influenza 09/09/2021 Completed (PCV13)Pneumococcal 08/20/2019 Completed (PPSV23)Pneumococcal 08/23/2020 Completed Shingles 08/08/2020 Completed TDaP 08/23/2020 Completed Shingles 2 04/22/2021 Completed
--- OUTSIDE RECORDS SUMMARY | 2023-09-23 21:06 | External Medical Summary | Summary of Care ---
Author Name Unknown Organization [facility] Address [address] [place] [facility] [place] [address] Phone [phone] Care Team Providers Care Licensed Reactor Operator Name Role Phone Jaelyn Pemberton MD Primary Care Prov ider Reason for Visit * Reason Onset Date Comments Appointment 06/14/2023 PACER CHECK Encounter Details Date Type Department Care Team Description 06/14/2023 Telephone Cardiology [address] [place] [address] Shorty Rich, DO [address] [place] [address] Appointment (PACER CHECK) Allergies No known active allergiesdocumented as of this encounter (statuses as of 06/18/2023) Medications Medication Sig Dispensed Refills Start Date [...] Oral Tablet (Eliquis)Indication s:Coronary artery disease involving king salmon coronary artery [...] as of this encounter (statuses as of 06/18/2023) Active Problems Problem Noted Date Closed fracture [...] as of this encounter (statuses as of 06/18/2023) Resolved Problems Problem Noted Date Resolved Date [...] as of this encounter (statuses as of 06/18/2023) Immunizations Name Administration Dates Next Due COVID-19 mRNA, LNP-s, No Pre serve, 2-Dose Series (Game[employer]) 08/05/2021,12/12/2020,11/21/2020 COVID-19, LNP-s, No Preserve , Rashawn-sucrose, [...] chadwick to determine day to come to [facility] to perform device interrogations. Called, left message for transport at [facility] that appointment tomorrow would be cancelled [...] if Delio stillneeds this appt for the [facility] to bring him down or not. Please call Ian at ph # [phone] to advise. documented in this encounter Plan of Treatment Upcoming Encounters Date Type Specialty Care Team Description 07/18/2023 Office Visit Family Medicine Jaelyn Pemberton MD [address] [place] [address] [place] [address] 08/02/2023 Office Visit Cardiology Shorty Rich, DO [address] [place] [address] 09/18/2023 Office Visit Cardiology Shorty Rich, DO [address] [place] [address] 09/26/2023 Office Visit Urology Vitaliy Maria MD [address] [place] [address] 12/17/2023 Office Visit Dermatology Keira De Jesus PA-C [address] [place] [address] [place] [address] 05/02/2024 Nurse Only Ancillary Paolo Nurse Annual Wellness [address] [place] [address] [place] [address] Health Maintenance Due Date Last Done Comments COVID-19 Vaccine (5 - Pfizer series) 05/31/2022 04/05/2022, 08/05/2021, 12/12/2020, Additional history exists Influenza Vaccine (FLU shot) (#1) 2023 07/11/2022, 09/09/2021, 07/10/2020, Additional history exists Albumin/Creatinine Ratio 07/11/2023 07/11/2022, 08/30 HbA1c 07/15/2023 01/12/2023, 09/0 04/2022, 11/22/2021, Additional history exists CKD PHOS USE SMARTSET 19018 01/13/2024 01/12/2023, 0 05/04/2021 Depression Screening, Annual for Pts 12 and Over 04/30/2024 04/30/2023 CKD HGB USE SMARTSET 29098 06/15/202406/15, 06/11/2023, 06/08/2023, Additional history exists DTaP,Tdap,and [...] Documents on File Type Date Recorded 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
--- OUTSIDE RECORDS SUMMARY | 2023-09-23 21:06 | External Medical Summary ---
Author Name Unknown Address Unknown Organization [id number]:[facility] - [address] [place] [address] Laboratory Report Ordering Provider Test Date Status KALEY KERNS 06/15/2023 06:45:00 Final Observation Date Value Abnormality Reference (Units ) Status Hemoglobin 06/15/2023 06:45:00 8.2 Below low normal 14 .0-16.8 (g/dL) Final Performing Location [facility] 0 - [address] [place] [address]
--- OUTSIDE RECORDS SUMMARY | 2023-09-23 21:07 | External Medical Summary | Summary of Care ---
Author Name Unknown Organization [facility] Address [address] [place] [address] Phone [phone] Care Team Providers Care Combat Control Name Role Phone Jaelyn Pemberton MD Primary Care Prov ider Reason for Visit * Reason Comments Outpatient Testing Encounter Details Date Type Department Care Team Description 06/05/2023 Laboratory Laboratory, [facility] [address] [place] [address] [facility] [address] [place] [address] Arrived Allergies No known active allergiesdocumented as of this encounter (statuses as of 06/05/2023) Medications Medication Sig Dispensed Refills Start Date [...] the morning. 90 Tablet 3 09/26/2022 Active Losartan Potassium 25 MG Oral Tablet (Cozaar)Indications:H ypertension goal BP (blood pressure) < 140/90,Systolic CHF with reduced left ventricular function, NYHA class 2 (HCC),Coronary artery disease involving osage coronary artery of osage heart without angina pectoris TAKE 1/2 TAB BY MOUTH IN THE MORNING *HOLD IF BLOOD PRESSURE IS LESS THAN 110/70 45 Tablet 1 12/18/2022 Active Sertraline HCl 25 MG Oral Tablet (Zoloft) Take 1 Tablet by mouth in the morning. 90 Tablet 1 12/19/2022 Active Apixaban 2.5 MG Oral Tablet (Eliquis)Indications: Coronary artery disease involving osage coronary artery of osage heart without angina pectoris Take 1 Tablet [...] Oral Tablet (Iron-Vitamin C 65-125 mg per tab)Indications:Anemi a, unspecified type Take 1 Tablet by mouth once a day on Sunday, Sunday, and Sunday only. 40 Tablet 3 02/19/2023 Active Folic Acid 1 MG Oral TabletIndications:Ane debbie, unspecified type TAKE 1 TABLET BY MOUTH EVERY DAY IN THE MORNING 90 Tablet 1 03/05/2023 Active Atorvastatin Calcium 40 MG Oral Tablet (Lipitor)Indications: Hyperlipidemia, unspecified hyperlipidemia type TAKE 1 TABLET BY MOUTH EVERYDAY AT BEDTIME 90 Tablet 1 04/07/2023 Active Carvedilol 3.125 MG Oral Tablet (Coreg)Indications:Sy stolic CHF with reduced left ventricular function, NYHA class 2 (HCC),Hypertension goal BP (blood pressure) < 140/90,Coronary artery disease involving osage coronary artery of osage heart without angina pectoris Take 1 Tablet by mouth 2 times a day with morning and evening meals. 180 Tablet 1 04/16/2023 Active Ferrous Sulfate 325 (65 Fe) MG Oral Tablet (Feosol)Indications:I tian deficiency anemia, unspecified iron deficiency anemia type TAKE 1 TABLET BY MOUTH EVERY DAY IN THE MORNING WITH BREAKFAST 90 Tablet 0 05/02/2023 Active metFORMIN HCl ER 500 MG Oral [...] the morning. 90 Capsule 1 05/28/2023 Active documented as of this encounter (statuses as of 06/05/2023) Active Problems Problem Noted Date Closed fracture [...] stenosis Hyperlipidemia Coronary artery disease invo lving osage coronary artery of osage heart without angina pectoris Moderate aortic stenosis by prior echoca rdiogram documented as of this encounter (statuses as of 06/05/2023) Resolved Problems Problem Noted Date Resolved Date [...] as of this encounter (statuses as of 06/05/2023) Immunizations Name Administration Dates Next Due COVID-19 mRNA, LNP-s, No Pre serve, 2-Dose Series (Pfizer) 08/05/2021,12/12/2020,11/21/2020 COVID-19, LNP-s, No Preserve , Rashawn-sucrose, Ages 12+ (Pfizer) 04/05/2022 Pneumococcal Conjugate Vacc, 13 Valent (Prevnar) 08/20/2019 Pneumococcal Polysaccharide PPV23 (Pneumovax) 08/23/2020 Seasonal Influenza Virus Vac cine, Unspecified Formulation 08/20/2019 Seasonal Influenza, Quadriva lent Hd (Fluzone Hd) 07/11/2022,09/09/2021 Seasonal Influenza, Quadriva lent, No Preserve, Adjuvanted, 65+ Yrs, IM 07/10/2020 Seasonal Influenza, Trivalen t, Adjuvanted, 65+ yrs [...] Care Team Description 06/19/2023 Cardiac Studies Cardiology [facility] [address] [place] [id number] 07/18/2023 Office Visit Family Medicine Jaelyn Pemberton MD [address] [place] [address] [place] [address] 08/02/2023 Office Visit Cardiology Shorty Rich, DO [address] [place] [address] 09/18/2023 Office Visit Cardiology Shorty Rich, DO [address] [place] [address] 09/26/2023 Office Visit Urology Vitaliy Maria MD [address] [place] [address] 12/17/2023 Office Visit Dermatology Keira De Jesus PA-C [address] [place] [address] [place] [address] 05/02/2024 Nurse Only Ancillary [place], Nurse Annual Wellness [address] [place] [address] [place] [address] Health Maintenance Due Date Last Done Comments COVID-19 Vaccine (5 - Pfizer series) 05/31/2022 04/05/2022, 08/05/2021, 12/12/2020, Additional history exists Influenza Vaccine (FLU shot) (#1) 2023 07/11/2022, 09/09/2021, 07/10/2020, Additional history exists Albumin/Creatinine Ratio 07/11/2023 07/11/2022, 08/30 HbA1c 07/15/2023 01/12/2023, 09/0 04/2022, 11/22/2021, Additional history exists CKD PHOS USE SMARTSET 35114 01/13/2024 01/12/2023, 0 05/04/2021 Depression Screening, Annual for Pts 12 and Over 04/30/2024 04/30/2023 CKD HGB USE SMARTSET 28337 06/04/202406/04, 05/30/2023, 05/30/2023, Additional history exists DTaP,Tdap,and Td Vaccines (2 [...] Documents on File Type Date Recorded 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
--- OUTSIDE RECORDS SUMMARY | 2023-09-23 21:07 | External Medical Summary ---
Author Name Unknown Address Unknown Organization [id number] [place] [address] [place] [address] Laboratory Report Ordering Provider Test Date Status KALEY KERNS 06/06/2023 05:13:00 Final Observation Date Value Abnormality Reference (Units ) Status Vitamin B12 06/06/2023 05:13:00 >2000 Above high normal 232-1245 (pg/mL) Final Performing Location [facility] - [address] [place] [address]
--- OUTSIDE RECORDS SUMMARY | 2023-09-23 21:07 | External Medical Summary ---
Author Name Unknown Address Unknown Organization [id number] - [address] [place] [address] Laboratory Report Ordering Provider Test Date Status KALEY KERNS 06/11/2023 05:35:00 Final Observation Date Value Abnormality Reference (Units ) Status HCT 06/11/2023 05:35:00 27.3 Below low normal 40. 0-48.4 (%) Final Performing Location [facility] 0 - [address] [place] [address]
--- OUTSIDE RECORDS SUMMARY | 2023-09-23 21:07 | External Medical Summary ---
Author Name Unknown Address Unknown Organization K01:[facility] [place] - [address] [place] [address] Laboratory Report Ordering Provider Test Date Status KALEY KERNS 06/06/2023 05:13:00 Final Observation Date Value Abnormality Reference (Units ) Status Iron 06/06/2023 05:13:00 20 Below low normal 45-176 (ug/dL) Final Iron-binding capacity 06/06/2023 05:13:00 208 Below low normal 250-425 (ug/dL) Final Transferrin Sat % 06/06/2023 05:13:00 10 Below low normal 15-55 (%) Final Performing Location [facility] [place] - [address] [place] [address]
--- OUTSIDE RECORDS SUMMARY | 2023-09-23 21:07 | External Medical Summary ---
Author Name Unknown Address Unknown Organization [id number]:[facility] [place] - [address] [facility] [address] Laboratory Report Ordering Provider Test Date Status KALEY KERNS 06/06/2023 05:13:00 Final Observation Date Value Abnormality Reference (Units ) Status SYNC LEUKOCYTES IN BLOOD BY AUTOMATED COUNT 06/06/2023 05:13:00 13.89 Above high normal 4.00-10.80 (K/uL) Final Segs 06/06/2023 05:13:00 83.6 Above high normal 40.0-75.0 (%) Final Lymphs % 06/06/2023 05:13:00 6.0 Below low normal 18.0-42.0 (%) Final Monos 06/06/2023 05:13:00 8.6 1.0-11.0 (%) Final Eosinophils 06/06/2023 05:13:00 1.2 0.0-6.0 (%) Final Basos 06/06/2023 05:13:00 0.1 0.0-2.0 (%) Final Immature Granulocyte, Percent 06/06/2023 05:13:00 0.5 0.0-2.0 (%) Final Absolute Segs 06/06/2023 05:13:00 11.60 Above high normal 1.80-7.70 (K/uL) Final Lymphs, absolute 06/06/2023 05:13:00 0.84 Below low normal 1.00-4.80 (K/ul) Final Monos, Abs 06/06/2023 05:13:00 1.20 Above high normal 0.00-1.10 (K/uL) Final Eos, Abs 06/06/2023 05:13:00 0.16 0.00-0.70 (K/uL) Final Basos, Abs 06/06/2023 05:13:00 0.02 0.00-0.20 (K/uL) Final Immature Granulocytes, Number 06/06/2023 05:13:00 0.07 0.00-0.20 (K/uL) Final Performing Location [facility] [place] - [facility] [address] [facility] [address]
--- OUTSIDE RECORDS SUMMARY | 2023-09-23 21:07 | External Medical Summary ---
Author Name Unknown Address Unknown Organization [id number] [address] [place] [address] Laboratory Report Ordering Provider Test Date Status KALEY KERNS 06/08/2023 04:45:00 Final Observation Date Value Abnormality Reference (Units ) Status WBC, Total 06/08/2023 04:45:00 11.56 Above high normal 4 .00-10.80 (K/uL) Final RBC 06/08/2023 04:45:00 2.59 4.50-5.25 (M/uL) Final Hemoglobin 06/08/2023 04:45:00 8.2 Below low normal 14 .0-16.8 (g/dL) Final HCT 06/08/2023 04:45:00 25.8 Below low normal 40. 0-48.4 (%) Final MCV 06/08/2023 04:45:00 99.6 82.0-99.5 (fL) Final MCH 06/08/2023 04:45:00 31.7 27.0-34.0 (pg) Final MCHC 06/08/2023 04:45:00 31.8 32.0-36.0 (g/dL) Final RDW 06/08/2023 04:45:00 14.3 11.5-15.5 (%) Final Platelets 06/08/2023 04:45:00 262 140-400 (K /uL) Final MPV 06/08/2023 04:45:00 10.3 6.6-11.1 ( fL) Final Performing Location LABORATORY [facility] [address] - [address] [place] [address]
--- OUTSIDE RECORDS SUMMARY | 2023-09-23 21:07 | External Medical Summary | Summary of Care ---
Author Name Unknown Organization [facility] Address [address] [place] [address] Phone [phone] Care Team Providers Care Medical Sales Representative Name Role Phone Jaelyn Pemberton MD Primary Care Prov ider Reason for Visit * Reason Onset Date Comments Skilled Visit 06/07/2023 Encounter Details Date Type Department Care Team Description 06/07/2023 Mcfp Visit [facility] [address] [place] [address] Thao Fernandez PA-C [address] [place] [address] Closed fracture of superior ramus of left pubis with routine healing*; Closed nondisplaced fracture of medial wall of left acetabulum with routine healing, subsequent encounter; Persistent atrial fibrillation (HCC); Acute prostatitis; Iron deficiency anemia, unspecified iron deficiency anemia type; Leukocytosis, unspecified type Allergies No known active allergiesdocumented as of this encounter (statuses as of 06/07/2023) Medications Medication Sig Dispensed Refills Start Date [...] NYHA class 2 (HCC),Coronary artery disease involving telida coronary artery of telida heart without angina pectoris TAKE 1/2 TAB BY MOUTH IN THE MORNING *HOLD IF BLOOD PRESSURE IS LESS THAN 110/70 45 Tablet 1 12/18/2022 Active Sertraline HCl 25 MG Oral Tablet (Zoloft) Take 1 Tablet by mouth in the morning. 90 Tablet 1 12/19/2022 Active Apixaban 2.5 MG Oral Tablet (Eliquis)Indications: Coronary artery disease involving telida coronary artery of telida heart without angina pectoris Take 1 Tablet [...] (blood pressure) < 140/90,Coronary artery disease involving telida coronary artery of telida heart without angina pectoris Take 1 Tablet [...] as of this encounter (statuses as of 06/07/2023) Active Problems Problem Noted Date Closed fracture [...] stenosis Hyperlipidemia Coronary artery disease invo lving telida coronary artery of telida heart without angina pectoris Moderate aortic stenosis by prior echoca rdiogram documented as of this encounter (statuses as of 06/07/2023) Resolved Problems Problem Noted Date Resolved Date [...] as of this encounter (statuses as of 06/07/2023) Immunizations Name Administration Dates Next Due COVID-19 [...] Description 06/19/2023 Cardiac Studies [facility]iology [facility] [address] [place] [address] 07/18/2023 Office Visit Family Medicine Jaelyn Pemberton MD [address] [place] [address] [place] [address] 08/02/2023 Office Visit Cardiology Shorty Rich DO [address] [place] [address] 09/18/2023 Office Visit Cardiology Shorty Rich DO [address] [place] [address] 09/26/2023 Office Visit Urology Vitalyi Maria MD [address] [place] [id number] 12/17/2023 Office Visit Dermatology Keira De Jesus PA-C [address] [place] [address] [place] [address] 05/02/2024 Nurse Only Ancillary Nurse Paolo [facility] [address] [place] [address] [place] [address] Health Maintenance Due Date Last Done Comments COVID-19 Vaccine (5 - Pfizer series) 05/31/2022 04/05/2022, 08/05/2021, 12/12/2020, Additional history exists Influenza Vaccine (FLU shot) (#1) 2023 07/11/2022, 09/09/2021, 07/10/2020, Additional history exists Albumin/Creatinine Ratio 07/11/2023 07/11/2022, 08/30 HbA1c 07/15/2023 01/12/2023, 09/0 04/2022, 11/22/2021, Additional history exists CKD PHOS USE SMARTSET 94735 01/13/2024 01/12/2023, 0 05/04/2021 Depression Screening, Annual for Pts 12 and Over 04/30/2024 04/30/2023 CKD HGB USE SMARTSET 11675 06/06/202406/06, 06/06/2023, 06/04/2023, Additional history exists DTaP,Tdap,and Td Vaccines (2 [...] encounter Visit Diagnoses Diagnosis Closed fracture of superior ramus of left pubis with routine healing- Primary Closed nondisplaced fracture of medial wall of left acetabulum with routine healing, subsequent encounter Persistent atrial fibrillation (HCC) Atrial fibrillation Acute prostatitis Iron deficiency anemia, unspecified iron deficiency anemia type Leukocytosis, unspecified type documented in this encounter Advance Directives Documents on File Type Date Recorded 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
--- OUTSIDE RECORDS SUMMARY | 2023-09-23 21:07 | External Medical Summary | Continuity Of Care Document ---
Author Name Unknown Address [address] [place] [address] Organization [facility] ( ) Care Team Providers Care Crime Prevention Police Officer Name Role Phone Angel Coronel Primary Care Provider [phone] Problems Code Description Start Date End Date [...] chemistry 05/28/2023 Active I50.9 Heart failure, unspecified 05/28/202300/ 0 Active Z95.0 Presence of cardiac pacemaker 05/28/2023 Active R42. Dizziness and giddiness 05/28/2023 A ctive VITAL SIGNS Date Time Diastolic blood pressure Systolic blood pressure Body height Body weight Temperature SpO2 Blood Sugar Pulse Respirations 731 44325 9 52.00 mm[Hg] - Sitting 116.00 mm[Hg] - Sitting 69 NI 160.00 NI 98.50 Oral 97.00 % 18.00/min 63338 731 31463 4 52.00 mm[Hg] - Lying Down 116.00 mm[Hg] - Lying Down 98.50 Ear 64.00/ min 18.00/min 801 75274 3 73.00 mm[Hg] - Sitting 137.00 mm[Hg] - Sitting 160.00 NI 98.10 Oral 93.00 % 18.00/min 801 67742 6 801 53036 5 50.00 mm[Hg] - Sitting 118.00 mm[Hg] - Sitting 96.80 Oral 96.00 % 60.00/ min 801 21128 0 162.00 NI 801 05729 8 161.00 NI 801 92074 9 56.00 mm[Hg] - Sitting 95.00 mm[Hg] - Sitting 96.00 Ear 61.00/ min 18.00/min 15962 802 21714 3 56.00 mm[Hg] - Sitting 95.00 mm[Hg] - Sitting 96.00 Ear 61.00/ min 18.00/min 63401 802 97793 6 09884 802 07468 6 56.00 mm[Hg] - Sitting 95.00 mm[Hg] - Sitting 96.00 Ear 61.00/ min 18.00/min 28987 802 90515 1 161.00 NI 66149 802 59563 5 161.00 NI 28189 803 14689 5 69.00 mm[Hg] - Sitting 154.00 mm[Hg] - Sitting 98.60 Ear 91.00 % 64.00/ min 00490 803 25101 7 64.00 mm[Hg] - Sitting 113.00 mm[Hg] - Sitting 97.20 Oral 94.00 % 71.00/ min 05665 804 97975 3 67.00 mm[Hg] - Sitting 173.00 mm[Hg] - Sitting 97.20 Ear 93.00 % 62.00/ min 22480 804 03695 5 157.00 NI 08965 804 07043 6 161.00 NI 62772 804 84755 1 68.00 mm[Hg] - Sitting 178.00 mm[Hg] - Sitting 99.00 Ear 93.00 % 66.00/ min 67884 805 04359 9 65.00 mm[Hg] - Sitting 165.00 mm[Hg] - Sitting 97.30 Oral 96.00 % 60.00/ min 05299 805 89751 0 68.00 mm[Hg] - Sitting 172.00 mm[Hg] - Sitting 96.20 Ear 95.00 % 60.00/ min 48184 806 77611 7 63.00 mm[Hg] - Lying Down 140.00 mm[Hg] - Lying Down 97.80 Ear 96.00 % 63.00/ min 806 58863 7 62.00 mm[Hg] - Sitting 147.00 mm[Hg] - Sitting 97.20 Oral 96.00 % 60.00/ min 807 04527 9 69.00 mm[Hg] - Sitting 142.00 mm[Hg] - Sitting 98.60 Ear 97.00 % 68.00/ min 807 62443 2 64.00 mm[Hg] - Sitting 106.00 mm[Hg] - Sitting 96.00 Oral 96.00 % 60.00/ min Immunizations Vaccine Date Status COVID-19 11/21/2020 Completed COVID-19 12/12/2020 Completed COVID-19 08/05/2021 Completed COVID-19 04/05/2022 Completed Influenza 09/09/2021 Completed (PCV13)Pneumococcal 08/20/2019 Completed (PPSV23)Pneumococcal 08/23/2020 Completed Shingles 08/08/2020 Completed TDaP 08/23/2020 Completed Shingles 2 04/22/2021 Completed
--- OUTSIDE RECORDS SUMMARY | 2023-09-23 21:07 | External Medical Summary ---
Author Name Unknown Address Unknown Organization [id number]:LABORATORY [facility] - [address] [place] [address] Laboratory Report Ordering Provider Test Date Status KALEY KERNS 06/06/2023 05:13:00 Final Observation Date Value Abnormality Reference (Units ) Status Retic, % (auto) 06/06/2023 05:13:00 2.22 Above high normal 0.80-1.90 (%) Final Reticulocytes, Absolute 06/06/2023 05:13:00 66.6 31.3-100.1 (K/uL) Final Reticulocyte fraction, immature 06/06/2023 05:13:00 27.5 Above high normal 2.5-20.6 (%) Final Reticulocyte HGB 06/06/2023 05:13:00 29.2 Below low normal 29.7-37.4 (pg) Final Performing Location LABORATORY [facility] - [address] [place] [address]
--- OUTSIDE RECORDS SUMMARY | 2023-09-23 21:07 | External Medical Summary ---
Author Name Unknown Address Unknown Organization [id number]:LABORATORY C - [address] [place] [address] Laboratory Report Ordering Provider Test Date Status KALEY KERNS 06/06/2023 05:13:00 Final Observation Date Value Abnormality Reference (Units ) Status TSH 06/06/2023 05:13:00 1.31 0.27-4.20 (uIU/mL) Final Performing Location LABORATORY [facility] - [address] [place] [address]
--- OUTSIDE RECORDS SUMMARY | 2023-09-23 21:07 | External Medical Summary ---
Author Name Unknown Address Unknown Organization K01:LABORATORY [facility] - [address] [place] [address] Laboratory Report Ordering Provider Test Date Status KALEY KERNS 06/06/2023 05:13:00 Final Observation Date Value Abnormality Reference (Units ) Status Ferritin 06/06/2023 05:13:00 443 Above high normal 30 -400 (ng/mL) Final Performing Location LABORATORY [facility] - [address] [place] [address]
--- OUTSIDE RECORDS SUMMARY | 2023-09-23 21:07 | External Medical Summary | Summary of Care ---
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 [address] [place] [address] 07/18/2023 Office Visit Family Medicine Jaelyn Pemberton MD [address] [place] [address] [place] [address] 08/02/2023 Office Visit Cardiology Shorty Rich, DO [address] [place] [address] 09/18/2023 Office Visit Cardiology Shorty Rich, DO [address] [place] [address] 09/26/2023 Office Visit Urology Vitaliy Maria MD [address] [place] [address] [address] [place] [address] 12/17/2023 Office Visit Dermatology Keira De Jesus PA-C [address] [place] [address] [place] [address] 05/02/2024 Nurse Only Ancillary Paolo, Nurse [facility] [address] [place] [address] [place] [address] Scheduled Orders Name Type Priority Associated Diagnoses Orde r Schedule BASIC METABOLIC PANEL Lab Routine Anemia CKD (chronic kidney disease), symptom management only Expected: 06/06/2023, Expires: 06/05/2024 CBC WITH WBC DIFFERENTIAL AND ANEMIA REFLEX WORKUP Lab Routine Anemia CKD (chronic kidney disease), symptom management only Expected: 06/06/2023, Expires: 06/05/2024 Health Maintenance Due Date Last Done Comments COVID-19 Vaccine (5 - Pfizer series) 05/31/2022 04/05/2022, 08/05/2021, 12/12/2020, Additional history exists Influenza Vaccine (FLU shot) (#1) 2023 07/11/2022, 09/09/2021, 07/10/2020, Additional history exists Albumin/Creatinine Ratio 07/11/2023 07/11/2022, 08/30 HbA1c 07/15/2023 01/12/2023, 09/0 04/2022, 11/22/2021, Additional history exists CKD PHOS USE SMARTSET 61803 01/13/2024 01/12/2023, 0 05/04/2021 Depression Screening, Annual for Pts 12 and Over 04/30/2024 04/30/2023 CKD HGB USE SMARTSET 12633 06/04/202406/04, 05/30/2023, 05/30/2023, Additional history exists DTaP,Tdap,and [...] Visit Diagnoses Diagnosis Anemia- Primary Anemia, unspecified CKD (chronic kidney disease), symptom management only Chronic kidney disease, unspecified documented in this encounter Advance Directives Documents on File Type Date Recorded Patient Research Test Engine Operator Expl anation Power of Paramedical Aide 01/13/2019 POWER OF A TTORNEY Healthcare Agents on File Name Relationship Healthcare Agent Relationship Communication Ian Henriquez Other - (no specific identity) Health Care Agent (per Health Care Power of Paramedical Aide document) Care Teams Ladies Underwear Operator Relationship Specialty Start Date End Date Jaelyn Pemberton MD [address] [place] [address] [place] [phone] PCP - General Family Medicine 08/20/19 documented as of this encounter
--- OUTSIDE RECORDS SUMMARY | 2023-09-23 21:07 | External Medical Summary ---
Author Name Unknown Address Unknown Organization K0G:[facility]ORY [facility] - [address] [place] [address] Laboratory Report Ordering Provider Test Date Status KALEY KERNS 06/08/2023 04:45:00 Final Observation Date Value Abnormality Reference (Units ) Status SYNC LEUKOCYTES IN BLOOD BY AUTOMATED COUNT 06/08/2023 04:45:00 11.56 Above high normal 4.00-10.80 (K/uL) Final Segs 06/08/2023 04:45:00 78.7 Above high normal 40.0-75.0 (%) Final Lymphs % 06/08/2023 04:45:00 8.7 Below low normal 18.0-42.0 (%) Final Monos 06/08/2023 04:45:00 8.7 1.0-11.0 (%) Final Eosinophils 06/08/2023 04:45:00 3.8 0.0-6.0 (%) Final Basos 06/08/2023 04:45:00 0.1 0.0-2.0 (%) Final Absolute Segs 06/08/2023 04:45:00 9.10 Above high normal 1.80-7.70 (K/uL) Final Lymphs, absolute 06/08/2023 04:45:00 1.00 1.00-4.80 (K/ul) Final Monos, Abs 06/08/2023 04:45:00 1.01 0.00-1.10 (K/uL) Final Eos, Abs 06/08/2023 04:45:00 0.44 0.00-0.70 (K/uL) Final Basos, Abs 06/08/2023 04:45:00 0.01 0.00-0.20 (K/uL) Final [facility] - [address] [place] [address]
--- OUTSIDE RECORDS SUMMARY | 2023-09-23 21:07 | External Medical Summary ---
Author Name Unknown Address Unknown Organization K01:LABORATORY [facility] - [address] [place] [address] Laboratory Report Ordering Provider Test Date Status KALEY KERNS 06/06/2023 05:13:00 Final Observation Date Value Abnormality Reference (Units ) Status Folic Acid 06/06/2023 05:13:00 >20.0 >4.5 (ng/ mL) Final Performing Location LABORATORY [facility] - [address] [place] [address]
--- OUTSIDE RECORDS SUMMARY | 2023-09-23 21:07 | External Medical Summary | Summary of Care ---
Author Name Unknown Organization [facility] Address [address] [place] [address] Phone [phone] Care Team Providers Care Digital Experience Manager Name Role Phone Jaelyn Pemberton MD Primary Care Prov ider Encounter Details Date Type Department Care Team Description 06/14/2023 Orders Only Lab Mobile Phlebotomy [facility] [address] [place] [address] Angel Coronel MD [address] [place] [address] [place] [id number] Anemia*; Chronic kidney disease (CKD) Allergies No known active allergiesdocumented as of this encounter (statuses as of 06/14/2023) Medications Medication Sig Dispensed Refills Start Date [...] NYHA class 2 (HCC),Coronary artery disease involving [place] coronary artery of [place] heart without angina pectoris TAKE 1/2 TAB BY MOUTH IN THE MORNING *HOLD IF BLOOD PRESSURE IS LESS THAN 110/70 45 Tablet 1 12/18/2022 Active Sertraline HCl 25 MG Oral Tablet (Zoloft) Take 1 Tablet by mouth in the morning. 90 Tablet 1 12/19/2022 Active Apixaban 2.5 MG Oral Tablet (Eliquis)Indications:C oronary artery disease involving [place] coronary artery of [place] heart without angina pectoris Take 1 Tablet [...] (blood pressure) < 140/90,Coronary artery disease involving [place] coronary artery of [place] heart without angina pectoris Take 1 Tablet [...] Tablet in the evening. 0 06/11/2023 Active documented as of this encounter (statuses as of 06/14/2023) Active Problems Problem Noted Date Closed fracture [...] stenosis Hyperlipidemia Coronary artery disease invo lving [place] coronary artery of [place] heart without angina pectoris Moderate aortic stenosis by prior echoca rdiogram documented as of this encounter (statuses as of 06/14/2023) Resolved Problems Problem Noted Date Resolved Date [...] as of this encounter (statuses as of 06/14/2023) Immunizations Name Administration Dates Next Due COVID-19 [...] Encounters Date Type Specialty Care Team Description 06/15/2023 Laboratory Laboratory Processing [address] [place] [address] 06/19/2023 Cardiac Studies [facility]iology [facility] [address] [place] [address] 07/18/2023 Office Visit Family Medicine Jaelyn Pemberton MD [address] [place] [address] [place] [address] 08/02/2023 Office Visit Cardiology Shorty Rich, DO [address] [place] [address] 09/18/2023 Office Visit Cardiology Shorty Rich, DO [address] [place] [address] 09/26/2023 Office Visit Urology Vitaliy Maria MD [facility] [address] [place] [address] 12/17/2023 Office Visit Dermatology Keira De Jesus PA-C [address] [place] [address] [place] [address] 05/02/2024 Nurse Only Ancillary Paolo Nurse [facility] [address] [place] [address] [place] [address] Scheduled Orders Name Type Priority Associated Diagnoses Orde r Schedule BASIC METABOLIC PANEL Lab Routine Anemia Chronic kidney disease (CKD) Expected: 06/15/2023, Expires: 06/14/2024 HGB Lab Routine Anemia Chronic kidney disease (CKD) Expected: 06/15/2023, Expires: 06/14/2024 HCT Lab Routine Anemia Chronic kidney disease (CKD) Expected: 06/15/2023, Expires: 06/14/2024 Health Maintenance Due Date Last Done Comments COVID-19 Vaccine (5 - Pfizer series) 05/31/2022 04/05/2022, 08/05/2021, 12/12/2020, Additional history exists Influenza Vaccine (FLU shot) (#1) 2023 07/11/2022, 09/09/2021, 07/10/2020, Additional history exists Albumin/Creatinine Ratio 07/11/2023 07/11/2022, 08/30 HbA1c 07/15/2023 01/12/2023, 09/0 04/2022, 11/22/2021, Additional history exists CKD PHOS USE SMARTSET 84688 01/13/2024 01/12/2023, 0 05/04/2021 Depression Screening, Annual for Pts 12 and Over 04/30/2024 04/30/2023 CKD HGB USE SMARTSET 29403 06/11/202406/11, 06/08/2023, 06/08/2023, Additional history exists DTaP,Tdap,and Td Vaccines [...] Documents on File Type Date Recorded 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
--- OUTSIDE RECORDS SUMMARY | 2023-09-23 21:07 | External Medical Summary ---
Author Name Unknown Address Unknown Organization K01:LABORATORY [facility] - [address] [place] [id number] Laboratory Report Ordering Provider Test Date Status KALEY KERNS 06/04/2023 21:00:00 Final Observation Date Value Abnormality Reference (Units) Status Bacteria identified in Unspecified specimen by Culture 06/04/2023 21:00:00 No significant growth Final Test: Culture, Urine, Quanti tative
Specimen Source: Urine, Clean Catch
Specimen Type: Urine
Specimen Date: 06/04/2023 9:00 PM
Result Date: 06/06/2023 8:59 AM
Result Status: Final result
Resulting Lab: LABORATORY [facility]
[address]
[place] [address]

CULTURE

No significant growth

null Performing Location LABORATORY [facility] - [address] [facility] [address]
--- OUTSIDE RECORDS SUMMARY | 2023-09-23 21:07 | External Medical Summary | Summary of Care ---
Author Name Unknown Organization [facility] Address [address] [place] [address] Phone [phone] Care Team Providers Care Uniform Attendant Name Role Phone Jaelyn Pemberton MD Primary Care Prov ider Encounter Details Date Type Department Care Team Description 06/08/2023 Orders Only Lab Mobile Phlebotomy [facility] [address] [place] [address] Angel Coronel MD [address] [place] [address] [place] [id number] Anemia* Allergies No known active allergiesdocumented as of this encounter (statuses as of 06/08/2023) Medications Medication Sig Dispensed Refills Start Date [...] NYHA class 2 (HCC),Coronary artery disease involving [place] coronary artery of [place] heart without angina pectoris TAKE 1/2 TAB BY MOUTH IN THE MORNING *HOLD IF BLOOD PRESSURE IS LESS THAN 110/70 45 Tablet 1 12/18/2022 Active Sertraline HCl 25 MG Oral Tablet (Zoloft) Take 1 Tablet by mouth in the morning. 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 artery of [place] heart without angina pectoris Moderate aortic stenosis by prior echoca rdiogram documented as of this encounter (statuses as of 06/08/2023) Resolved Problems Problem Noted Date Resolved Date [...] as of this encounter (statuses as of 06/08/2023) Immunizations Name Administration Dates Next Due COVID-19 [...] Encounters Date Type Specialty Care Team Description 06/08/2023 Laboratory Laboratory Processing [address] [place] [id number] Arrived 06/19/2023 Cardiac Studies Cardiology [facility] [address] [place] [address] 07/18/2023 Office Visit Family Medicine Jaelyn Pemberton MD [address] [place] [address] [place] [address] 08/02/2023 Office Visit Cardiology Shorty Rich, DO [address] [place] [address] 09/18/2023 Office Visit Cardiology Shorty Rich, [address] [place] [address] 09/26/2023 Office Visit Urology Vitaliy Maria MD [address] [place] [address] 12/17/2023 Office Visit Dermatology Keira De Jesus PA-C [address] [place] [address] [place] [address] 05/02/2024 Nurse Only Ancillary Paolo, Nurse [facility] [address] [place] [address] [place] [phone] Scheduled Orders Name Type Priority Associated Diagnoses Orde r Schedule CBC WITH WBC DIFFERENTIAL Lab Routine Anemia Expected: 06/08/2023, Expires: 06/08/2024 Health Maintenance Due Date Last Done Comments COVID-19 Vaccine (5 - Pfizer series) 05/31/2022 04/05/2022, 08/05/2021, 12/12/2020, Additional history exists Influenza Vaccine (FLU shot) (#1) 2023 07/11/2022, 09/09/2021, 07/10/2020, Additional history exists Albumin/Creatinine Ratio 07/11/2023 07/11/2022, 08/30 HbA1c 07/15/2023 01/12/2023, 09/0 04/2022, 11/22/2021, Additional history exists CKD PHOS USE SMARTSET 81427 01/13/2024 01/12/2023, 0 05/04/2021 Depression Screening, Annual for Pts 12 and Over 04/30/2024 04/30/2023 CKD HGB USE SMARTSET 72121 06/06/202406/06, 06/06/2023, 06/04/2023, Additional history exists DTaP,Tdap,and [...] Documents on File Type Date Recorded 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
--- OUTSIDE RECORDS SUMMARY | 2023-09-23 21:07 | External Medical Summary ---
Author Name Unknown Address Unknown Organization [facility] [address] [place] [id number] Laboratory Report Ordering Provider Test Date Status KALEY KERNS 06/11/2023 05:35:00 Final Observation Date Value Abnormality Reference (Units ) Status Hemoglobin 06/11/2023 05:35:00 8.7 Below low normal 14 .0-16.8 (g/dL) Final Performing Location [facility] [place] [id number]
--- OUTSIDE RECORDS SUMMARY | 2023-09-23 21:07 | External Medical Summary | Summary of Care ---
Author Name Unknown Organization [facility] Address [address] [place] [address] Phone [phone] Care Team Providers Care Briquetting Machine Operator Name Role Phone Jaelyn Pemberton MD Primary Care Prov ider Reason for Visit * Reason Onset Date Comments Skilled Visit 06/11/2023 Encounter Details Date Type Department Care Team Description 06/11/2023 Snf Visit [facility] [address] [place] [address] Thao Fernandez PA-C [address] [place] [address] Closed fracture of superior ramus of left pubis with routine healing*; Closed fracture of left inferior pubic ramus with routine healing, subsequent encounter; Closed nondisplaced zone III fracture of sacrum with routine healing, subsequent encounter; Acute prostatitis; Persistent atrial fibrillation (HCC); 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; Coronary artery disease involving [place] coronary artery of [place] heart without angina pectoris; Type 2 diabetes mellitus with stage 3b chronic kidney disease, without long-term current use of insulin (HCC); Iron deficiency anemia, unspecified iron deficiency anemia type Allergies No known active allergiesdocumented as of this encounter (statuses as of 06/11/2023) Medications Medication Sig Dispensed Refills Start Date [...] NYHA class 2 (HCC),Coronary artery disease involving [place] coronary artery of [place] heart without angina pectoris TAKE 1/2 TAB BY MOUTH IN THE MORNING *HOLD IF BLOOD PRESSURE IS LESS THAN 110/70 45 Tablet 1 12/18/2022 Active Sertraline HCl 25 MG Oral Tablet (Zoloft) Take 1 Tablet by mouth in the morning. 90 Tablet 1 12/19/2022 Active Apixaban 2.5 MG Oral Tablet (Eliquis)Indication s:Coronary artery disease involving [place] coronary artery of [place] heart without angina pectoris Take 1 Tablet [...] (blood pressure) < 140/90,Coronary artery disease involving [place] coronary artery of [place] heart without angina pectoris Take 1 Tablet [...] Tablet in the evening. 0 06/11/2023 Active Ferrous Sulfate 325 (65 Fe) MG Oral Tablet (Feosol)Indications :Iron deficiency anemia, unspecified iron deficiency anemia type TAKE 1 TABLET BY MOUTH EVERY DAY IN THE MORNING WITH BREAKFAST 90 Tablet 0 05/02/2023 06/11/20 23 Discontinued documented as of this encounter (statuses as of 06/11/2023) Active Problems Problem Noted Date Closed fracture [...] stenosis Hyperlipidemia Coronary artery disease invo lving [place] coronary artery of [place] heart without angina pectoris Moderate aortic stenosis by prior echoca rdiogram documented as of this encounter (statuses as of 06/11/2023) Resolved Problems Problem Noted Date Resolved Date [...] as of this encounter (statuses as of 06/11/2023) Immunizations Name Administration Dates Next Due COVID-19 mRNA, LNP-s, No Pre serve, 2-Dose Series ([employer]) 08/05/2021,12/12/2020,11/21/2020 COVID-19, LNP-s, No Preserve , [...] Description 06/19/2023 Cardiac Studies Cardiology [facility] [address] [place] [address] 07/18/2023 Office Visit Family Medicine Jaelyn Pemberton MD [address] [place] [address] [place] [phone] 08/02/2023 Office Visit Cardiology Shorty Rich, DO [address] [place] [address] 09/18/2023 Office Visit Cardiology Shorty Rich, DO [address] [place] [address] 09/26/2023 Office Visit Urology Vitaliy Maria MD [address] [place] [address] 12/17/2023 Office Visit Dermatology Keira De Jesus PA-C [address] [place] [address] [place] [address] 05/02/2024 Nurse Only Ancillary Nurse Paolo [facility] [address] [place] [address] [place] [id number] Health Maintenance Due Date Last Done Comments COVID-19 Vaccine (5 - Pfizer series) 05/31/2022 04/05/2022, 08/05/2021, 12/12/2020, Additional history exists Influenza Vaccine (FLU shot) (#1) 2023 07/11/2022, 09/09/2021, 07/10/2020, Additional history exists Albumin/Creatinine Ratio 07/11/2023 07/11/2022, 08/30 HbA1c 07/15/2023 01/12/2023, 09/0 04/2022, 11/22/2021, Additional history exists CKD PHOS USE SMARTSET 11637 01/13/2024 01/12/2023, 0 05/04/2021 Depression Screening, Annual for Pts 12 and Over 04/30/2024 04/30/2023 CKD HGB USE SMARTSET 32453 06/11/202406/11, 06/08/2023, 06/08/2023, Additional history exists DTaP,Tdap,and [...] left pubis with routine healing- Primary Closed fracture of left inferior pubic ramus with routine healing, subsequent encounter Closed nondisplaced zone III fracture of sacrum with routine healing, subsequent encounter Acute prostatitis Persistent atrial fibrillation (HCC) Atrial fibrillation 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 Profound, moderate or severe vision impairment, not further specified Coronary artery disease involving [place] coronary artery of [place] heart without angina pectoris Type 2 diabetes mellitus with stage 3b chronic kidney disease, without long-term current use of insulin (HCC) Iron deficiency anemia, unspecified iron deficiency anemia type documented in this encounter Advance Directives Documents on File Type Date Recorded Patient 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
--- OUTSIDE RECORDS SUMMARY | 2023-09-23 21:07 | External Medical Summary | Summary of Care ---
Author Name Unknown Organization [facility] Address [address] [place] [address] Phone [phone] Care Team Providers Care Vocal Artist Name Role Phone Jaelyn Pemberton MD Primary Care Prov ider Encounter Details Date Type Department Care Team Description 06/05/2023 Orders Only Lab Mobile Phlebotomy [facility] [address] [place] [address] Angel Coronel MD [address] [place] [address] [place] [phone] Dysuria*; Leukocytosis Allergies No known active allergiesdocumented as of [...] NYHA class 2 (HCC),Coronary artery disease involving [place] coronary artery of [place] heart without angina pectoris TAKE 1/2 TAB BY MOUTH IN THE MORNING *HOLD IF BLOOD PRESSURE IS LESS THAN 110/70 45 Tablet 1 12/18/2022 Active Sertraline HCl 25 MG Oral Tablet (Zoloft) Take 1 Tablet by mouth in the morning. 90 Tablet 1 12/19/2022 Active Apixaban 2.5 MG Oral Tablet (Eliquis)Indications: Coronary artery disease involving [place] coronary artery of [place] heart without angina pectoris Take 1 Tablet [...] (blood pressure) < 140/90,Coronary artery disease involving [place] coronary artery of [place] heart without angina pectoris Take 1 Tablet [...] stenosis Hyperlipidemia Coronary artery disease invo lving [place] coronary artery of [place] heart without angina pectoris Moderate aortic stenosis [...] mRNA, LNP-s, No Pre serve, 2-Dose Series ([employer]) 08/05/2021,12/12/2020,11/21/2020 COVID-19, LNP-s, No Preserve , Rashawn-sucrose, [...] Description 06/19/2023 Cardiac Studies Cardiology [facility] [address] [place] [address] 07/18/2023 Office Visit Family Medicine Jaelyn Pemberton MD [address] [place] [address] [place] [address] 08/02/2023 Office Visit Cardiology Shorty Rich, DO [address] [place] [address] 09/18/2023 Office Visit Cardiology Shorty Rich, DO [address] [place] [address] 09/26/2023 Office Visit Urology Vitaliy Maria MD [address] [place] [address] 12/17/2023 Office Visit Dermatology Keira De Jesus, [place]-C [address] [place] [address] [place] [address] 05/02/2024 Nurse Only Ancillary [employer], Nurse [facility] [address] [place] [address] [place] [phone] Pending Results Name Type Priority Associated Diagnoses Date /Time CULTURE, URINE, QUANTITATIVE Lab Routine Dysuria Leukocytosis 06/04/2023 9:00 PM EDT Scheduled Orders Name Type Priority Associated Diagnoses Orde r Schedule CULTURE, URINE, QUANTITATIVE Lab Routine Dysuria Leukocytosis Expected: 06/05/2023, Expires: 06/05/2024 Health Maintenance Due Date Last Done Comments COVID-19 Vaccine (5 - Pfizer series) 05/31/2022 04/05/2022, 08/05/2021, 12/12/2020, Additional history exists Influenza Vaccine (FLU shot) (#1) 2023 07/11/2022, 09/09/2021, 07/10/2020, Additional history exists Albumin/Creatinine Ratio 07/11/2023 07/11/2022, 08/30 HbA1c 07/15/2023 01/12/2023, 09/0 04/2022, 11/22/2021, Additional history exists CKD PHOS USE SMARTSET 23936 01/13/2024 01/12/2023, 0 05/04/2021 Depression Screening, Annual for Pts 12 and Over 04/30/2024 04/30/2023 CKD HGB USE SMARTSET 74702 06/04/202406/04, 05/30/2023, 05/30/2023, Additional history exists DTaP,Tdap,and [...] this encounter Visit Diagnoses Diagnosis Dysuria- Primary Leukocytosis Leukocytosis, unspecified documented in this encounter Advance Directives Documents on File Type Date Recorded Patient Commercial Front Load Operator Expl anation Power of Manager Decision Support 01/13/2019 POWER OF A TTORNEY Healthcare Agents on File Name Relationship Healthcare Agent Relationship Communication Ian Henriquez Other - (no specific identity) Health Care Agent (per Health Care Power of Manager Decision Support document) Care Teams Vocal Artist Relationship Specialty Start Date End Date Jaelyn Pemberton MD [address] [place] [address] [place] [phone] PCP - General Family Medicine 08/20/19 documented as of this encounter
--- OUTSIDE RECORDS SUMMARY | 2023-09-23 21:07 | External Medical Summary | Summary of Care ---
Author Name Unknown Organization [facility] Address [address] [place] [address] Phone [phone] Care Team Providers Care Sheet Metal Fabricator Name Role Phone Jaelyn Pemberton MD Primary Care Prov ider Reason for Visit * Reason Onset Date Comments Skilled Visit 06/05/2023 Encounter Details Date Type Department Care Team Description 06/05/2023 Mcfp Visit [facility] [address] [place] [address] Thao Fernandez PA-C [address] [place] [address] Closed fracture of superior ramus of left pubis with routine healing*; Closed nondisplaced fracture of medial wall of left acetabulum with routine healing, subsequent encounter; Closed nondisplaced zone III fracture of sacrum with routine healing, subsequent encounter; Type 2 diabetes mellitus with stage 3b chronic kidney disease, without long-term current use of insulin (HCC); Persistent atrial fibrillation (HCC); Acute cystitis without hematuria; Acute prostatitis Allergies No known active allergiesdocumented as of [...] Oral Tablet (Eliquis)Indications: Coronary artery disease involving [place] coronary artery of [...] Progress Notes * Thao Fernandez PA-C - 06/05/2023 11:12 AM EDT Name: Delio Padilla Date of :1935 TRANSITION EVENT: Type: Skilled visit Date: June 05 Code Status: Full Code This note pertains to care provided at [facility]. Please see facility medical record for original note. This note is not to be edited or addended in [employer]. [facility]. Subjective: Delio Padilla is a 88 year old male. Patient being seen for skilled visit Chief Complaint Patient presents with Skilled Visit HPI: here for rehabilitation with possible LTC due to fx pubic rami and sacrum due to recurrent falls. No specific hip or back pain which is not controlled with Tylenol mostly. Pt was having urinary pressure, burning. Has BPH on Rx. Urinalysis showed moderate to large leukocytes. Had leukocytosisof 14,000 on yesterday's CBC. CXR showed NAD. Urine C&S pending. Pt is afebrile. No chills, bodyaches, change in weakness or fatigue. Pt is having issues understanding his ambulation program with PT. Having difficulty following commands. Safety precautions in place. Having normal BMs. CBC Results: Results for orders placed or performed in visit on 06/04/23 CBC Result Value Ref Range WBC 14.67 (H) 4.00 - 10.80 K/uL RBC 2.82 4.50 - 5.25 M/uL HGB 9.2 (L) 14.0 - 16.8 g/dL HCT 28.2 (L) 40.0 - 48.4 % MCV 100.0 82.0 - 99.5 fL MCH 32.6 27.0 - 34.0 pg MCHC 32.6 32.0 - 36.0 g/dL RDW 14.8 11.5 - 15.5 % PLT 229 140 - 400 K/uL MPV 10.7 6.6 - 11.1 fL Hemoglobin Results: Lab Results Component Value Date/Time HGB - [facility] 9.2 (L) 06/04/2023 05:10 AM HGB - [facility] 9.7 (L) 05/30/2023 05:05 AM HGB - [facility] 10.7 (L) 01/12/2023 02:45 PM HGB - [facility] 11.6 (L) 05/11/2020 03:12 PM HGB - [facility] 11.4 (L) 03/31/2020 01:13 PM HGB - [facility] 12.8 (L) 08/20/2019 04:24 PM Creatinine Results: Lab Results Component Value Date/Time CREATININE - [facility] 1.0 05/30/2023 05:05 AM CREATININE - [facility] 1.2 01/12/2023 02:45 PM CREATININE - [facility] 1.3 (H) 07/05/2022 11:25 AM CREATININE - [facility] 1.3 (H) 08/10/2020 [...] Results Component Value Date/Time POTASSIUM - [facility] 3.8 05/30/2023 05:05 AM POTASSIUM - [facility] 4.5 01/12/2023 02:45 PM POTASSIUM - [facility] 4.5 07/05/2022 11:25 AM POTASSIUM - [facility] 5.0 08/10/2020 02:34 PM POTASSIUM - [facility] 3.6 05/11/2020 03:12 PM POTASSIUM - [facility] 4.4 03/31/2020 01:13 PM POTASSIUM-[facility] 4.2 05/22/2023 12:00 AM POTASSIUM[facility] 5.1 10/05/2021 12:00 AM P[facility]UM[facility] 3.7 03/11/2021 12:00 AM . Sodium Results: Lab Results Component Value Date/Time SODIUM - [facility] 140 05/30/2023 05:05 AM SODIUM - [facility] 139 01/12/2023 02:45 PM SODIUM - [facility] 138 07/05/2022 11:25 AM SODIUM - [facility] 141 08/10/2020 02:34 PM SODIUM - [facility] 139 05/11/2020 03:12 PM SODIUM - [facility] 139 03/31/2020 01:13 PM Patient Active Problem List Diagnosis Code Hypertension goal BP (blood pressure) < 140/90 I10 Mitral stenosis I05.0 Hyperlipidemia E78.5 Coronary artery disease involving [place] coronary artery of [place] heart without angina pectoris I25.10 Moderate aortic [...] reduced left ventricular function, NYHA class 2 ([facility]) I50.20 Hiatal hernia K44.9 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 S/p left hip fracture Z87.81 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 episode ([facility]) F32.0 Persistent atrial fibrillation ([facility]) I48.19 Type 2 diabetes mellitus with stage 3b chronic kidney disease ([facility]) E11.22, N18.32 Chronic kidney disease, stage 3b ([facility]) N18.32 Closed nondisplaced fracture of medial wall of left acetabulum ([facility]) S32.475A Calculus of gallbladder without cholecystitis without obstruction K80.20 Closed fracture of left inferior pubic ramus ([facility]) S32.592A Closed fracture of [...] artery disease) Chest pain DM (diabetes mellitus) ([facility]) DVT prophylaxis Failed CABG [...] Moderate . Moderate MR. Mild TR. [facility] CABG, ARTERIAL, SINGLE 1999 COLONOSCOPY, DIAGNOSTIC (RECTUM) 09/09/2019 poor prep, repeat / COLONOSCOPY FLEXIBLE PROXIMAL DIAGNOSTIC performed by Filipe Hankins MD atEND[facility]COPY [facility] COLONOSCOPY, DIAGNOSTIC (RECTUM) 09/10/2019 normal / COLONOSCOPY FLEXIBLE PROXIMAL DIAGNOSTIC performed by Filipe Hankins MD at ENDOSCOPY [facility] EGD, FLEXIBLE, DIAGNOSTIC 07/21/2021 hiatal hernia / [facility] TOTAL HIP REPLACEMENT & PROSTHESIS Left [...] Pipe, Cigarettes Quit date: 2018 Years since quittin.6 Smokeless tobacco: Never Tobacco comments: Rarely smokes [...] list as this cannot be edited in [employer]. Review of Systems: Constitutional ROS: No change in weight, continued weakness, continued fatigue and No fevers, sweats, or chills [...] or constipation and No dysphagia Musculoskeletal/Extremities ROS: see HPI : see HPI Skin/Integumentary ROS: No rash and No itching Neurologic ROS: No headaches and No seizures Psychiatric ROS: No depression, No anxiety and No psychosis Sleep: [...] lungs clear to auscultation Abdomen: abdomen soft, suprapubic tenderness, normal bowel sounds and no masses or organomegaly Extremities: , no edema, no clubbing, no cyanosis Neuro Exam: alert with fluent speech, no focal motor/sensory deficits Skin: skin color, texture, turgor are normal, no rashes or significant lesions ASSESSMENT: Closed fracture of superior ramus of left pubis with routine healing (Primary) Pain controlled with tylenol prn and Tramadol 50mg Q 6 hours prn Very slow progress with Therapy. Will continue Closed nondisplaced fracture of medial wall of left acetabulum with routine healing, subsequent encounter Pain controlled with tylenol prn and Tramadol 50mg Q 6 hours prn Very slow progress with Therapy. Will continue Closed nondisplaced zone III fracture of sacrum with routine healing, subsequent encounter Pain controlled with tylenol prn and Tramadol 50mg Q 6 hours prn Very slow progress with Therapy. Will continue Type 2 diabetes mellitus with stage 3b chronic kidney disease, without long-term current use of insulin (HCC) Glucoses controlled/stable Continue Metformin 500mg daily Continue to monitor Persistent atrial fibrillation (HCC) Stable rate Continue with Coreg 3.125mg BID, Eliquis 2.5mg BID Acute cystitis without hematuria Reviewed urinalysis with pt Will begin Cipro 500mg BID times 10 days due to pt having symptoms and leukocytosis Awaiting C&S results Acute prostatitis Reviewed urinalysis with pt Will begin Cipro 500mg BID times 10 days due to pt having symptoms and leukocytosis Awaiting urine C&S results PLAN: reviewed CBC, BMP, Lytes. and Continue present medication(s):as ordered. [facility] Home Treatment Given: Lab Draw CBC with diff, BMP in AM Electronically signed by: Thao Fernandez PA-C Over 45 minutes were spent in this visit more than half the time was spent counselling or coordinating care. documented in this encounter Plan of Treatment Upcoming Encounters Date Type Specialty Care Team Description 06/19/2023 Cardiac Studies Cardiology Paolo, [facility] [address] [place] [address] 07/18/2023 Office Visit Family Medicine Jaelyn Pemberton MD [address] [place] [address] [place] [address] 08/02/2023 Office Visit Cardiology Shorty Rich DO [address] [place] [address] 09/18/2023 Office Visit Cardiology Shorty Rich, DO [address] [place] [address] 09/26/2023 Office Visit Urology Vitaliy Maria MD [address] [place] [address] [place] [id number] 12/17/2023 Office Visit Dermatology Keira De Jesus PA-C [address] [place] [address] [place] [address] 05/02/2024 Nurse Only Ancillary [place], Nurse [facility] [address] [place] [address] [place] [address] Health Maintenance Due Date Last Done Comments COVID-19 Vaccine (5 - Pfizer series) 05/31/2022 04/05/2022, 08/05/2021, 12/12/2020, Additional history exists Influenza Vaccine (FLU shot) (#1) 2023 07/11/2022, 09/09/2021, 07/10/2020, Additional history exists Albumin/Creatinine Ratio 07/11/2023 07/11/2022, 2 04/2019 HbA1c 07/15/2023 01/12/2023, 09/0 04/2022, 11/22/2021, Additional history exists CKD PHOS USE SMARTSET 38349 01/13/2024 01/12/2023, 0 05/04/2021 Depression Screening, Annual for Pts 12 and Over 04/30/2024 04/30/2023 CKD HGB USE SMARTSET 34664 06/04/202406/04, 05/30/2023, 05/30/2023, Additional history exists DTaP,Tdap,and [...] of sacrum with routine healing, subsequent encounter Type 2 diabetes mellitus with stage 3b chronic kidney disease, without long-term current use of insulin (HCC) Persistent atrial fibrillation (HCC) Atrial fibrillation Acute cystitis without hematuria Acute cystitis Acute prostatitis documented in this encounter Advance Directives Documents on File Type Date Recorded Patient Equal Opportunity Assistant Expl anation Power of Compression Molding Machine Setter 01/13/2019 POWER OF A TTORNEY Healthcare Agents on File Name Relationship Healthcare Agent Relationship Communication Ian Henriquez Other - (no specific identity) Health Care Agent (per Health Care Power of Compression Molding Machine Setter document) Care Teams Sheet Metal Fabricator Relationship Specialty Start Date End Date Jaelyn Pemberton MD [address] [place] [address] [place] [phone] PCP - General Family Medicine 08/20/19 documented as of this encounter
--- OUTSIDE RECORDS SUMMARY | 2023-09-23 21:07 | External Medical Summary | Summary of Care ---
Author Name Unknown Organization [facility] Address [address] [place] [address] Phone [phone] Care Team Providers Care Hub Cutter Apprentice Name Role Phone Jaelyn Pemberton MD Primary Care Prov ider Encounter Details Date Type Department Care Team Description 06/10/2023 Orders Only Lab Mobile Phlebotomy [facility] [address] [place] [address] Angel Coronel MD [address] [place] [address] [place] [phone] Anemia* Allergies No known active allergiesdocumented as of this encounter (statuses as of 06/10/2023) Medications Medication Sig Dispensed Refills Start Date [...] NYHA class 2 (HCC),Coronary artery disease involving [place] coronary artery of [place] heart without angina pectoris TAKE 1/2 TAB BY MOUTH IN THE MORNING *HOLD IF BLOOD PRESSURE IS LESS THAN 110/70 45 Tablet 1 12/18/2022 Active Sertraline HCl 25 MG Oral Tablet (Zoloft) Take 1 Tablet by mouth in the morning. 90 Tablet 1 12/19/2022 Active Apixaban 2.5 MG Oral Tablet (Eliquis)Indications: Coronary artery disease involving [place] coronary artery of [place] heart without angina pectoris Take 1 Tablet [...] (blood pressure) < 140/90,Coronary artery disease involving [place] coronary artery of [place] heart without angina pectoris Take 1 Tablet [...] as of this encounter (statuses as of 06/10/2023) Active Problems Problem Noted Date Closed fracture [...] stenosis Hyperlipidemia Coronary artery disease invo lving [place] coronary artery of [place] heart without angina pectoris Moderate aortic stenosis by prior echoca rdiogram documented as of this encounter (statuses as of 06/10/2023) Resolved Problems Problem Noted Date Resolved Date [...] as of this encounter (statuses as of 06/10/2023) Immunizations Name Administration Dates Next Due COVID-19 [...] Encounters Date Type Specialty Care Team Description 06/11/2023 Laboratory Laboratory Processing [address] [place] [address] 06/19/2023 Cardiac Studies [facility]iology [facility] [address] [place] [address] 07/18/2023 Office Visit Family Medicine Jaelyn Pemberton MD [address] [place] [address] [place] [phone] 08/02/2023 Office Visit Cardiology Shorty Rich, DO [address] [place] [address] 09/18/2023 Office Visit Cardiology Shorty Rich, [address] [place] [address] 09/26/2023 Office Visit Urology Vitaliy aMria MD [address] [place] [address] [place] [address] 12/17/2023 Office Visit Dermatology Keira De Jesus PA-C [address] [place] [address] [place] [address] 05/02/2024 Nurse Only Ancillary Paolo, Nurse [facility] [address] [place] [address] [place] [phone] Scheduled Orders Name Type Priority Associated Diagnoses Orde r Schedule HGB Lab Routine Anemia Expected: 06/11/2023, Expires: 4 HCT Lab Routine Anemia Expected: 06/11/2023, Expires: 4 Health Maintenance Due Date Last Done Comments COVID-19 Vaccine (5 - Pfizer series) 05/31/2022 04/05/2022, 08/05/2021, 12/12/2020, Additional history exists Influenza Vaccine (FLU shot) (#1) 2023 07/11/2022, 09/09/2021, 07/10/2020, Additional history exists Albumin/Creatinine Ratio 07/11/2023 07/11/2022, 08/30 HbA1c 07/15/2023 01/12/2023, 09/0 04/2022, 11/22/2021, Additional history exists CKD PHOS USE SMARTSET 29379 01/13/2024 01/12/2023, 0 05/04/2021 Depression Screening, Annual for Pts 12 and Over 04/30/2024 04/30/2023 CKD HGB USE SMARTSET 56351 06/08/202406/08, 06/08/2023, 06/06/2023, Additional history exists DTaP,Tdap,and Td Vaccines (2 [...] Documents on File Type Date Recorded Patient Medical Coding Technician Expl anation Power of Orchestra Teacher 01/13/2019 POWER OF A TTORNEY Healthcare Agents on File Name Relationship Healthcare Agent Relationship Communication Ian Henriquez Other - (no specific identity) Health Care Agent (per Health Care Power of Orchestra Teacher document) Care Teams Hub Cutter Apprentice Relationship Specialty Start Date End Date Jaelyn Pemberton MD [address] [place] [address] [place] [phone] PCP - General Family Medicine 08/20/19 documented as of this encounter
--- OUTSIDE RECORDS SUMMARY | 2023-09-23 21:07 | External Medical Summary ---
Author Name Unknown Address Unknown Organization [facility] [address] [place] [address] Laboratory Report Ordering Provider Test Date Status KALEY KERNS 06/06/2023 05:13:00 Final Observation Date Value Abnormality Reference (Units ) Status BUN 06/06/2023 05:13:00 35 Above high normal 6-20 (mg/dL) Final Creatinine 06/06/2023 05:13:00 1.1 0.6-1.2 (mg/dL) Final Glomerular filtration rate/1.73 sq M.predicted [Volume Rate/Area] in Serum, Plasma or Blood by Creatinine-based formula (CKD-EPI) 06/06/2023 05:13:00 66 >=60 (mL/min) Final eGFR is calculated based on the CKD-EPI 2020 equation SODIUM 06/06/2023 05:13:00 136 135-146 (m mol/L) Final Potassium 06/06/2023 05:13:00 4.6 3.5-5.1 (m mol/L) Final Cl 06/06/2023 05:13:00 100 98-107 (mm ol/L) Final CO2 06/06/2023 05:13:00 23 22-32 (mmo l/L) Final Anion gap 06/06/2023 05:13:00 13 7-15 (mmol /L) Final Glucose 06/06/2023 05:13:00 101 70-120 (mg /dL) Final Calcium 06/06/2023 05:13:00 8.5 8.4-10.2 ( mg/dL) Final Performing Location [facility] [address] [place] [address]
--- OUTSIDE RECORDS SUMMARY | 2023-09-23 21:07 | External Medical Summary | Continuity Of Care Document ---
Author Name Unknown Address [address] [place] [address] Organization [facility] ( ) Care Team Providers Care Picker Machine Operator Name Role Phone Angel Coronel Primary Care Provider [phone] Problems Code Description Start Date End Date [...] Temperature SpO2 Blood Sugar Pulse Respirations 731 25663 9 52.00 mm[Hg] - Sitting 116.00 mm[Hg] - Sitting 69 NI 160.00 NI 98.50 Oral 97.00 % 18.00/min 40413 731 91501 4 52.00 mm[Hg] - Lying Down 116.00 mm[Hg] - Lying Down 98.50 Ear 64.00/ min 18.00/min 801 36863 3 73.00 mm[Hg] - Sitting 137.00 mm[Hg] - Sitting 160.00 NI 98.10 Oral 93.00 % 18.00/min 801 03205 6 801 08020 5 50.00 mm[Hg] - Sitting 118.00 mm[Hg] - Sitting 96.80 Oral 96.00 % 60.00/ min 801 48189 0 162.00 NI 801 23191 8 161.00 NI 801 23512 9 56.00 mm[Hg] - Sitting 95.00 mm[Hg] - Sitting 96.00 Ear 61.00/ min 18.00/min 97304 802 61041 3 56.00 mm[Hg] - Sitting 95.00 mm[Hg] - Sitting 96.00 Ear 61.00/ min 18.00/min 19852 802 79254 6 62386 802 27368 6 56.00 mm[Hg] - Sitting 95.00 mm[Hg] - Sitting 96.00 Ear 61.00/ min 18.00/min 77724 802 69268 1 161.00 [place] [address]109 802 57002 5 161.00 NI 98883 803 05931 5 69.00 mm[Hg] - Sitting 154.00 mm[Hg] - Sitting 98.60 Ear 91.00 % 64.00/ min 02905 803 47265 7 64.00 mm[Hg] - Sitting 113.00 mm[Hg] - Sitting 97.20 Oral 94.00 % 71.00/ min 39251 804 69124 3 67.00 mm[Hg] - Sitting 173.00 mm[Hg] - Sitting 97.20 Ear 93.00 % 62.00/ min 03790 804 81282 5 157.00 NI 75503 804 72295 6 161.00 NI 81056 804 53541 1 68.00 mm[Hg] - Sitting 178.00 mm[Hg] - Sitting 99.00 Ear 93.00 % 66.00/ min 33485 805 63266 9 65.00 mm[Hg] - Sitting 165.00 mm[Hg] - Sitting 97.30 Oral 96.00 % 60.00/ min 90022 805 98797 0 68.00 mm[Hg] - Sitting 172.00 mm[Hg] - Sitting 96.20 Ear 95.00 % 60.00/ min 81075 806 79782 7 63.00 mm[Hg] - Lying Down 140.00 mm[Hg] - Lying Down 97.80 Ear 96.00 % 63.00/ min 806 82346 7 62.00 mm[Hg] - Sitting 147.00 mm[Hg] - Sitting 97.20 Oral 96.00 % 60.00/ min 807 45334 9 69.00 mm[Hg] - Sitting 142.00 mm[Hg] - Sitting 98.60 Ear 97.00 % 68.00/ min 807 34974 2 64.00 mm[Hg] - Sitting 106.00 mm[Hg] - Sitting 96.00 Oral 96.00 % 60.00/ min Immunizations Vaccine Date Status COVID-19 11/21/2020 Completed COVID-19 12/12/2020 Completed COVID-19 08/05/2021 Completed COVID-19 04/05/2022 Completed Influenza 09/09/2021 Completed (PCV13)Pneumococcal 08/20/2019 Completed (PPSV23)Pneumococcal 08/23/2020 Completed Shingles 08/08/2020 Completed TDaP 08/23/2020 Completed Shingles 2 04/22/2021 Completed
--- OUTSIDE RECORDS SUMMARY | 2023-09-23 21:08 | External Medical Summary | Summary of Care ---
Author Name Unknown Organization [facility] Address [address] [place] [address] Phone [phone] Care Team Providers Care Copy Chaser Name Role Phone Jaelyn Pemberton MD Primary Care Prov ider Reason for Visit * Reason Onset Date Comments Skilled Visit 05/29/2023 Encounter Details Date Type Department Care Team Description 05/29/2023 Longterm Visit [facility] [address] [place] [address] Thao Fernandez PA-C [address] [place] [address] Frequent falls*; Closed nondisplaced fracture of left acetabulum with routine healing, unspecified portion of acetabulum, subsequent encounter; Acute metabolic encephalopathy; Persistent atrial fibrillation (HCC); Type 2 diabetes mellitus with stage 3b chronic kidney disease, without long-term current use of insulin (HCC); Systolic CHF with reduced left ventricular function, NYHA class 2 ([facility]) Allergies No known active allergiesdocumented as of this encounter (statuses as of 05/29/2023) Medications Medication Sig Dispensed Refills Start Date [...] NYHA class 2 (HCC),Coronary artery disease involving seminole coronary artery of seminole heart without angina pectoris TAKE 1/2 TAB BY MOUTH IN THE MORNING *HOLD IF BLOOD PRESSURE IS LESS THAN 110/70 45 Tablet 1 12/18/2022 Active Sertraline HCl 25 MG Oral Tablet (Zoloft) Take 1 Tablet by mouth in the morning. 90 Tablet 1 12/19/2022 Active Apixaban 2.5 MG Oral Tablet (Eliquis)Indications: Coronary artery disease involving seminole coronary artery of seminole heart without angina pectoris Take 1 Tablet [...] (blood pressure) < 140/90,Coronary artery disease involving seminole coronary artery of seminole heart without angina pectoris Take 1 Tablet [...] Chloride ER 10 MEQ Oral Capsule Extended ReleaseIndications:Sy stolic CHF with reduced left ventricular function, NYHA class 2 (HCC) Take 1 Capsule by mouth in the morning. One tablet in the morning. 90 Capsule 1 05/28/2023 Active documented as of this encounter (statuses as of 05/29/2023) Active Problems Problem Noted Date Closed fracture of left acetabulum with routine healing 05/28/2023 Calculus of gallbladder without cholecys titis [...] stenosis Hyperlipidemia Coronary artery disease invo lving seminole coronary artery of seminole heart without angina pectoris Aortic stenosis documented as of this encounter (statuses as of 05/29/2023) Resolved Problems Problem Noted Date Resolved Date [...] as of this encounter (statuses as of 05/29/2023) Immunizations Name Administration Dates Next Due COVID-19 mRNA, LNP-s, No Pre serve, 2-Dose Series ([employer]) 08/05/2021,12/12/2020,11/21/2020 COVID-19, LNP-s, No Preserve , Rashawn-sucrose, [...] Progress Notes * Thao Fernandez PA-C - 05/29/2023 12:23 PM EDT Name: Delio Padilla Date of :1935 TRANSITION EVENT: Type: Skilled visit Date: May 29 Code Status: No Code This note pertains to care provided at [facility]. Please see facility medical record for original note. This note is not to be edited or addended in [employer]. [facility]. Subjective: Delio Padilla is a 88 year old male. Patient being seen for skilled visit Chief Complaint Patient presents with Skilled Visit HPI: pt here for rehabilitation following [facility] admission for frequent falls and sustaining fx left acetabulum and acute metabolic encephalopathy. Pt is back to his baseline in mentation. Vital signs stable. Slept well last night. Pt states "I did poorly" when asked how Therapy is going. No significant pelvis pain but has Tylenol and Tramadol prn on order. Eating and drinking ok. Had BM this morning. Voiding ok. No abdominal pains nausea or vomiting. 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, H54.50 Blurry vision, left eye H53.8 Cardiac pacemaker in situ Z95.0 Falls frequently R29.6 Lightheaded R42 Headache, unspecified headache type R51.9 History of brain tumor Z87.898 Dizziness R42 Balance disorder R26.89 B12 deficiency E53.8 Systolic CHF with reduced left ventricular function, NYHA class 2 ([facility]) I50.20 Hiatal hernia K44.9 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 S/p left hip fracture Z87.81 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 episode ([facility]) F32.0 Persistent atrial fibrillation (HCC) I48.19 Type 2 diabetes mellitus with stage 3b chronic kidney disease (HCC) E11.22, N18.32 Chronic kidney disease, stage 3b (HCC) N18.32 Closed fracture of left acetabulum with routine healing S32.402D Calculus of gallbladder without cholecystitis without obstruction K80.20 Past Medical History: Diagnosis Date Aortic stenosis [...] 01/06/2020 Past Surgical History: Procedure Laterality Date CABG, ARTERIAL, SINGLE 2000 COLONOSCOPY, DIAGNOSTIC (RECTUM) 09/09/2019 poor prep, repeat / COLONOSCOPY FLEXIBLE PROXIMAL DIAGNOSTIC performed by Filipe Hankins MD [facility] COLONOSCOPY, DIAGNOSTIC (RECTUM) 09/10/2019 normal / COLONOSCOPY FLEXIBLE PROXIMAL DIAGNOSTIC performed by Filipe Hankins MD at ENDOSCOPY [facility] EGD, FLEXIBLE, DIAGNOSTIC 07/21/2021 hiatal hernia / [facility] TOTAL HIP REPLACEMENT & PROSTHESIS [...] Pipe, Cigarettes Quit date: 2019 Years since quittin.5 Smokeless tobacco: Never Tobacco comments: Rarely smokes [...] list as this cannot be edited in [employer]. Review of Systems: Constitutional ROS: No change [...] and No dysphagia Musculoskeletal/Extremities ROS: see HPI Skin/Integumentary ROS: No rash and [...] moves all extremities with good strength ASSESSMENT: Frequent falls (Primary) Safety precautions in place Therapy as directed Closed nondisplaced fracture of left acetabulum with routine healing, unspecified portion of acetabulum, subsequent encounter Pain pretty well controlled Continue Tylenol and Tramadol 50mg Q six hours prn Continue with Therapy as directed Acute metabolic encephalopathy Back to baseline in mentation Labs for tomorrow Persistent atrial fibrillation (HCC) Stable rate Continue Corge 3.125mg BID, Eliquis 2.5mg BID Type 2 diabetes mellitus with stage 3b chronic kidney disease, without long-term current use of insulin (HCC) accuchecks three days weekly Systolic CHF with reduced left ventricular function, NYHA class 2 (HCC) Stable. No active CHF Continue losartan 12.5mg daily and Lasix 40mg daily PLAN: Continue present medication(s):as ordered. [facility] Home Treatment Given: as above Electronically signed by: Thao Fernandez PA-C Over 45 minutes were spent in this visit more than half the time was spent counselling or coordinating care. documented in this encounter Plan of Treatment Upcoming Encounters Date Type Specialty Care Team Description 05/30/2023 Longterm Visit Family Medicine Angel Coronel MD [address] [place] [address] [place] [id number] 06/19/2023 Cardiac Studies Cardiology [place], [facility] [address] [place] [address] 07/18/2023 Office Visit Family Medicine Jaelyn Pemberton MD [address] [place] [address] [place] [address] 08/02/2023 Office Visit Cardiology Shorty Rich, [address] [place] [address] 09/18/2023 Office Visit Cardiology Shorty Rich, [address] [place] [address] 09/26/2023 Office Visit Urology Vitaliy Maria MD [address] [place] [address] 12/17/2023 Office Visit Dermatology Keira De Jesus PA-C [address] [place] [address] [place] [address] 05/02/2024 Nurse Only Ancillary [place] Nurse [facility] [address] [place] [address] [place] [address] Health Maintenance Due Date Last Done Comments COVID-19 Vaccine (5 - Pfizer series) 05/31/2022 04/05/2022, 08/05/2021, 12/12/2020, Additional history exists Influenza Vaccine (FLU shot) (#1) 2023 07/11/2022, 09/09/2021, 07/10/2020, Additional history exists Albumin/Creatinine Ratio 07/11/2023 07/11/2022, 08/30 HbA1c 07/15/2023 01/12/2023, 04/2022, 11/22/2021, Additional history exists CKD PHOS USE SMARTSET 47339 01/13/2024 01/12/2023, 0 05/04/2021 Depression Screening, Annual for Pts 12 and Over 04/30/2024 04/30/2023 CKD HGB USE SMARTSET 96753 05/22/202405/22, 01/12/2023, 12/30/2021, Additional history exists DTaP,Tdap,and Td Vaccines (2 [...] as of this encounter Visit Diagnoses Diagnosis Frequent falls- Primary Personal history of fall Closed nondisplaced fracture of left acetabulum with routine healing, unspecified portion of acetabulum, subsequent encounter Acute metabolic encephalopathy Persistent atrial fibrillation (HCC) Atrial fibrillation Type 2 diabetes mellitus with stage 3b chronic kidney disease, without long-term current use of insulin (HCC) Systolic CHF with reduced left ventricular function, NYHA class 2 (HCC) Unspecified systolic heart failure documented in this encounter Advance Directives Documents on File Type Date Recorded 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
--- OUTSIDE RECORDS SUMMARY | 2023-09-23 21:08 | External Medical Summary ---
Author Name Unknown Address Unknown Organization [facility] [address] [place] [address] Laboratory Report Ordering Provider Test Date Status KALEY KERNS 06/04/2023 05:10:00 Final Observation Date Value Abnormality Reference (Units ) Status WBC, Total 06/04/2023 05:10:00 14.67 Above high normal 4 .00-10.80 (K/uL) Final RBC 06/04/2023 05:10:00 2.82 4.50-5.25 (M/uL) Final Hemoglobin 06/04/2023 05:10:00 9.2 Below low normal 14 .0-16.8 (g/dL) Final HCT 06/04/2023 05:10:00 28.2 Below low normal 40. 0-48.4 (%) Final MCV 06/04/2023 05:10:00 100.0 82.0-99.5 (fL) Final MCH 06/04/2023 05:10:00 32.6 27.0-34.0 (pg) Final MCHC 06/04/2023 05:10:00 32.6 32.0-36.0 (g/dL) Final RDW 06/04/2023 05:10:00 14.8 11.5-15.5 (%) Final Platelets 06/04/2023 05:10:00 229 140-400 (K /uL) Final MPV 06/04/2023 05:10:00 10.7 6.6-11.1 ( fL) Final Performing Location LABORATORY [facility] [address] [place] [address]
--- OUTSIDE RECORDS SUMMARY | 2023-09-23 21:08 | External Medical Summary ---
Author Name Unknown Address Unknown Organization [facility] [address] [facility] [address] Laboratory Report Ordering Provider Test Date Status KALEY KERNS 05/30/2023 05:05:00 Final Observation Date Value Abnormality Reference (Units ) Status SYNC LEUKOCYTES IN BLOOD BY AUTOMATED COUNT 05/30/2023 05:05:00 7.90 4.00-10.80 (K/uL) Final Segs 05/30/2023 05:05:00 62.8 40.0-75.0 (%) Final Lymphs % 05/30/2023 05:05:00 17.7 Below low normal 18.0-42.0 (%) Final Monos 05/30/2023 05:05:00 8.6 1.0-11.0 (%) Final Eosinophils 05/30/2023 05:05:00 10.4 Above high normal 0.0-6.0 (%) Final Basos 05/30/2023 05:05:00 0.5 0.0-2.0 (%) Final Absolute Segs 05/30/2023 05:05:00 4.96 1.80-7.70 (K/uL) Final Lymphs, absolute 05/30/2023 05:05:00 1.40 1.00-4.80 (K/ul) Final Monos, Abs 05/30/2023 05:05:00 0.68 0.00-1.10 (K/uL) Final Eos, Abs 05/30/2023 05:05:00 0.82 Above high normal 0.00-0.70 (K/uL) Final Basos, Abs 05/30/2023 05:05:00 0.04 0.00-0.20 (K/uL) Final Performing Location [facility] [place] [address]
--- OUTSIDE RECORDS SUMMARY | 2023-09-23 21:08 | External Medical Summary | Summary of Care ---
Author Name Unknown Organization [facility] Address [address] [place] [address] Phone [phone] Care Team Providers Care Processing Manager Name Role Phone Jaelyn Pemberton MD Primary Care Prov ider Reason for Visit * Reason Onset Date Comments Skilled Visit 05/31/2023 Encounter Details Date Type Department Care Team Description 05/31/2023 Fdc Visit [facility] [address] [place] [address] Thao Fernandez PA-C [address] [place] [address] Closed fracture of superior ramus of left pubis with routine healing*; Closed nondisplaced zone III fracture of sacrum with routine healing, subsequent encounter; Closed fracture of left inferior pubic ramus with routine healing, subsequent encounter; Closed nondisplaced fracture of medial wall of left acetabulum with routine healing, subsequent encounter; Type 2 diabetes mellitus with stage 3b chronic kidney disease, without long-term current use of insulin (HCC); Coronary artery disease involving quartz [place] coronary artery of quartz valley heart without angina pectoris; Persistent atrial fibrillation (HCC) Allergies No known active allergiesdocumented as of this encounter (statuses as of 05/31/2023) Medications Medication Sig Dispensed Refills Start Date [...] NYHA class 2 (HCC),Coronary artery disease involving [place] coronary artery of [place] heart without angina pectoris TAKE 1/2 TAB BY MOUTH IN THE MORNING *HOLD IF BLOOD PRESSURE IS LESS THAN 110/70 45 Tablet 1 12/18/2022 Active Sertraline HCl 25 MG Oral Tablet (Zoloft) Take 1 Tablet by mouth in the morning. 90 Tablet 1 12/19/2022 Active Apixaban 2.5 MG Oral Tablet (Eliquis)Indications: Coronary artery disease involving [place] coronary artery of [place] heart without angina pectoris Take 1 [...] (blood pressure) < 140/90,Coronary artery disease involving [place] coronary artery of quartz [place] heart without angina pectoris Take 1 [...] as of this encounter (statuses as of 05/31/2023) Active Problems Problem Noted Date Closed fracture [...] stenosis Hyperlipidemia Coronary artery disease invo lving [place] coronary artery of [place] heart without angina pectoris Moderate aortic stenosis by prior echoca rdiogram documented as of this encounter (statuses as of 05/31/2023) Resolved Problems Problem Noted Date Resolved Date [...] as of this encounter (statuses as of 05/31/2023) Immunizations Name Administration Dates Next Due COVID-19 mRNA, LNP-s, No Pre serve, 2-Dose Series ([employer]) 08/05/2021,12/12/2020,11/21/2020 COVID-19, LNP-s, No Preserve , Rashawn-sucrose, [...] Studies Cardiology [facility] [address] [place] [address] 07/18/2023 Office Visit Family Medicine Jaelyn Pemberton MD [address] [place] [address] [place] [address] 08/02/2023 Office Visit Cardiology Shorty Rich DO [address] [place] [address] 09/18/2023 Office Visit Cardiology Shorty Rich, [address] [place] [address] 09/26/2023 Office Visit Urology Vitaliy Maria MD [address] [place] [address] 12/17/2023 Office Visit Dermatology Keira De Jesus PA-C [address] [place] [address] [place] [address] 05/02/2024 Nurse Only Ancillary [place] Nurse [facility] [address] [place] [address] [place] [address] Health Maintenance Due Date Last Done Comments COVID-19 Vaccine (5 - Pfizer series) 05/31/2022 04/05/2022, 08/05/2021, 12/12/2020, Additional history exists Influenza Vaccine (FLU shot) (#1) 2023 07/11/2022, 09/09/2021, 07/10/2020, Additional history exists Albumin/Creatinine Ratio 07/11/2023 07/11/2022, 08/30 HbA1c 07/15/2023 01/12/2023, 09/0 04/2022, 11/22/2021, Additional history exists CKD PHOS USE SMARTSET 37934 01/13/2024 01/12/2023, 0 05/04/2021 Depression Screening, Annual for Pts 12 and Over 04/30/2024 04/30/2023 CKD HGB USE SMARTSET 81829 05/30/202405/30, 05/30/2023, 05/22/2023, Additional history exists DTaP,Tdap,and Td Vaccines (2 [...] pubis with routine healing- Primary Closed nondisplaced zone III fracture of sacrum with routine healing, subsequent encounter Closed fracture of left inferior pubic ramus with routine healing, subsequent encounter Closed nondisplaced fracture of medial wall of left acetabulum with routine healing, subsequent encounter Type 2 diabetes mellitus with stage 3b chronic kidney disease, without long-term current use of insulin (HCC) Coronary artery disease involving quartz [place] coronary artery of [place] heart without angina pectoris Persistent atrial fibrillation (HCC) Atrial fibrillation documented in this encounter Advance Directives Documents on File Type Date Recorded Patient Elevator Supervisor Expl anation Power of Behavioral Health Director 01/13/2019 POWER OF A TTORNEY Healthcare Agents on File Name Relationship Healthcare Agent Relationship Communication Ian Henriquez Other - (no specific identity) Health Care Agent (per Health Care Power of Behavioral Health Director document) Care Teams Processing Manager Relationship Specialty Start Date End Date Jaelyn Pemberton MD [address] [place] [address] [place] [phone] PCP - General Family Medicine 08/20/19 documented as of this encounter
--- OUTSIDE RECORDS SUMMARY | 2023-09-23 21:08 | External Medical Summary | Continuity Of Care Document ---
Author Name Unknown Address [address] [place] [address] Organization [facility] ( ) Care Team Providers Care Chemical Analytical Sampler Name Role Phone Angel Coronel Primary Care Provider [phone] VITAL SIGNS Date Time Diastolic blood pressure Systolic blood pressure Body height Body weight Temperature SpO2 Blood Sugar Pulse Respirations 731 33325 9 52.00 mm[Hg] - Sitting 116.00 mm[Hg] - Sitting 69 NI 160.00 NI 98.50 Oral 97.00 % 18.00/min 88835 731 00764 4 52.00 mm[Hg] - Lying Down 116.00 mm[Hg] - Lying Down 98.50 Ear 64.00/ min 18.00/min 39187 801 09902 3 73.00 mm[Hg] - Sitting 137.00 mm[Hg] - Sitting 160.00 NI 98.10 Oral 93.00 % 18.00/min 95517 801 69293 6 17468 801 19136 5 50.00 mm[Hg] - Sitting 118.00 mm[Hg] - Sitting 96.80 Oral 96.00 % 60.00/ min 88926 801 25605 0 162.00 NI 69261 801 67635 8 161.00 NI 42614 801 33472 9 56.00 mm[Hg] - Sitting 95.00 mm[Hg] - Sitting 96.00 Ear 61.00/ min 18.00/min 38216 802 00759 3 56.00 mm[Hg] - Sitting 95.00 mm[Hg] - Sitting 96.00 Ear 61.00/ min 18.00/min 06220 802 86456 6 62441 802 12818 6 56.00 mm[Hg] - Sitting 95.00 mm[Hg] - Sitting 96.00 Ear 61.00/ min 18.00/min 60501 802 93584 1 161.00 NI 57409 802 22759 5 161.00 NI 09157 803 53430 5 69.00 mm[Hg] - Sitting 154.00 mm[Hg] - Sitting 98.60 Ear 91.00 % 64.00/ min 803 44363 7 64.00 mm[Hg] - Sitting 113.00 mm[Hg] - Sitting 97.20 Oral 94.00 % 71.00/ min 804 14406 3 67.00 mm[Hg] - Sitting 173.00 mm[Hg] - Sitting 97.20 Ear 93.00 % 62.00/ min 804 56346 5 157.00 NI 804 78448 6 161.00 NI 804 18008 1 68.00 mm[Hg] - Sitting 178.00 mm[Hg] - Sitting 99.00 Ear 93.00 % 66.00/ min 93491 805 46873 9 65.00 mm[Hg] - Sitting 165.00 mm[Hg] - Sitting 97.30 Oral 96.00 % 60.00/ min Immunizations Vaccine Date Status COVID-19 11/21/2020 Completed COVID-19 12/12/2020 Completed COVID-19 08/05/2021 Completed COVID-19 04/05/2022 Completed Influenza 09/09/2021 Completed (PCV13)Pneumococcal 08/20/2019 Completed (PPSV23)Pneumococcal 08/23/2020 Completed Shingles 08/08/2020 Completed TDaP 08/23/2020 Completed Shingles 2 04/22/2021 Completed
--- OUTSIDE RECORDS SUMMARY | 2023-09-23 21:08 | External Medical Summary ---
Author Name Unknown Address Unknown Organization [facility] [address] - [address] [place] [address] Laboratory Report Ordering Provider Test Date Status KALEY KERNS 05/30/2023 05:05:00 Final Observation Date Value Abnormality Reference (Units ) Status WBC, Total 05/30/2023 05:05:00 7.90 4.00-10.8 0 (K/uL) Final RBC 05/30/2023 05:05:00 2.99 4.50-5.25 (M/uL) Final Hemoglobin 05/30/2023 05:05:00 9.7 Below low normal 14 .0-16.8 (g/dL) Final HCT 05/30/2023 05:05:00 29.9 Below low normal 40. 0-48.4 (%) Final MCV 05/30/2023 05:05:00 100.0 82.0-99.5 (fL) Final MCH 05/30/2023 05:05:00 32.4 27.0-34.0 (pg) Final MCHC 05/30/2023 05:05:00 32.4 32.0-36.0 (g/dL) Final RDW 05/30/2023 05:05:00 14.1 11.5-15.5 (%) Final Platelets 05/30/2023 05:05:00 193 140-400 (K /uL) Final MPV 05/30/2023 05:05:00 10.3 6.6-11.1 ( fL) Final Performing Location LABORATORY [facility] [address] [place] [address]
--- OUTSIDE RECORDS SUMMARY | 2023-09-23 21:08 | External Medical Summary | Summary of Care ---
Author Name Unknown Organization [facility] Address [address] [place] [address] Phone [phone] Care Team Providers Care Plastic Welder Name Role Phone Jaelyn Pemberton MD Primary Care Prov ider Encounter Details Date Type Department Care Team Description 06/04/2023 Orders Only Lab Mobile Phlebotomy [facility] [place] [address] [place] [address] Angel Coronel MD [address] [place] [address] [place] [phone] Anemia* Allergies No known active allergiesdocumented as of this encounter (statuses as of 06/04/2023) Medications Medication Sig Dispensed Refills Start Date [...] NYHA class 2 (HCC),Coronary artery disease involving nikolai coronary artery of nikolai heart without angina pectoris TAKE 1/2 TAB BY MOUTH IN THE MORNING *HOLD IF BLOOD PRESSURE IS LESS THAN 110/70 45 Tablet 1 12/18/2022 Active Sertraline HCl 25 MG Oral Tablet (Zoloft) Take 1 Tablet by mouth in the morning. 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 Moderate aortic stenosis by prior echoca rdiogram documented as of this encounter (statuses as of 06/04/2023) Resolved Problems Problem Noted Date Resolved Date [...] as of this encounter (statuses as of 06/04/2023) Immunizations Name Administration Dates Next Due COVID-19 [...] Encounters Date Type Specialty Care Team Description 06/04/2023 Laboratory Laboratory Processing [address] [place] [id number] Arrived 06/19/2023 Cardiac Studies [facility]iology [facility] [address] [place] [id number] 07/18/2023 Office Visit Family Medicine Jaelyn Pemberton MD [address] [place] [address] [place] [id number] 08/02/2023 Office Visit Cardiology Shorty Rich, DO [address] [place] [phone] 09/18/2023 Office Visit Cardiology Shorty Rich, [address] [place] [phone] 09/26/2023 Office Visit Urology Vitaliy Maria MD [address] [place] [id number] 12/17/2023 Office Visit Dermatology Keira De Jesus PA-C [address] [place] [address] [place] [id number] 05/02/2024 Nurse Only Ancillary Paolo, Nurse Annual Wellness [address] [place] [address] [place] [id number] Scheduled Orders Name Type Priority Associated Diagnoses Orde r Schedule CBC Lab Routine Anemia Expected: 06/04/2023, Expires: Health Maintenance Due Date Last Done Comments COVID-19 Vaccine (5 - Pfizer series) 05/31/2022 04/05/2022, 08/05/2021, 12/12/2020, Additional history exists Influenza Vaccine (FLU shot) (#1) 2023 07/11/2022, 09/09/2021, 07/10/2020, Additional history exists Albumin/Creatinine Ratio 07/11/2023 07/11/2022, 08/30 HbA1c 07/15/2023 01/12/2023, 09/0 04/2022, 11/22/2021, Additional history exists CKD PHOS USE SMARTSET 86623 01/13/2024 01/12/2023, 0 05/04/2021 Depression Screening, Annual for Pts 12 and Over 04/30/2024 04/30/2023 CKD HGB USE SMARTSET 59129 05/30/202405/30, 05/30/2023, 05/22/2023, Additional history exists DTaP,Tdap,and [...] Documents on File Type Date Recorded Patient Seat Pack Inspector Expl anation Power of Braille And Talking Books Clerk 01/13/2019 POWER OF A TTORNEY Healthcare Agents on File Name Relationship Healthcare Agent Relationship Communication Ian Henriquez Other - (no specific identity) Health Care Agent (per Health Care Power of Braille And Talking Books Clerk document) Care Teams Plastic Welder Relationship Specialty Start Date End Date Jaelyn Pemberton MD [address] [place] [address] [place] [phone] PCP - General Family Medicine 08/20/19 documented as of this encounter
--- OUTSIDE RECORDS SUMMARY | 2023-09-23 21:08 | External Medical Summary | Summary of Care ---
Author Name Unknown Organization [facility] Address [address] [place] [address] Phone [phone] Care Team Providers Care Sales Director Name Role Phone Jaelyn Pemberton MD Primary Care Prov ider Reason for Visit * Reason Onset Date Comments Retirement Visit 05/29/2023 Encounter Details Date Type Department Care Team Description 05/28/2023 Retirement Visit [facility] [address] [place] [address] Thao Fernandez PA-C [address] [place] [address] Frequent falls*; Closed nondisplaced fracture of medial wall of left acetabulum, initial encounter ([facility]); Closed fracture of superior ramus of left pubis, initial encounter ([facility]); Closed fracture of left inferior pubic ramus, initial encounter ([facility]); Closed fracture of sacrum, unspecified portion of sacrum, initial encounter ([facility]); Acute metabolic encephalopathy; Persistent atrial fibrillation ([facility]); S/P total left hip arthroplasty; Coronary artery disease involving nansemond indian tribe coronary artery of nansem[place] indian tribe heart without angina pectoris; Type 2 diabetes mellitus with stage 3b chronic kidney disease, without long-term current use of insulin ([facility]); 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 episode ([facility]); Systolic CHF with reduced left ventricular function, NYHA class 2 ([facility]); B12 deficiency Allergies No known active allergiesdocumented as of this encounter (statuses as of 05/29/2023) Medications Medication Sig Dispensed Refills Start Date End Date Status Acetaminophen 325 MG Oral Tablet (Tylenol) Take 2 Tablets by mouth every 4 hours as needed for Fever >38C(100.5F) or Pain, Breakthrough. 100 Tablet 0 1 Active Aspirin EC 81 MG Oral Tablet Delayed Release Take 1 Tablet by mouth daily. 100 Tablet 3 2 Active Brimonidine Tartrate 0.2 % Ophthalmic Solution (Alphagan) Instill 1 Drop into the left eye 3 times a day. 5 mL 0 2 Active Dorzolamide HCl-Timolol Mal 22.3-6.8 MG/ML Ophthalmic Solution (Cosopt Ocumeter Plus) Instill 1 Drop into eye 2 times a day. 10 mL 0 2 Active Lumigan 0.01 % Ophthalmic Solution (Bimatoprost) Instill 1 Drop into both eyes at bedtime. 3 mL 0 2 Active Nitroglycerin 0.4 MG Sublingual Tablet Sublingual (Nitrostat) Place 1 Tablet under the tongue every 5 minutes as needed for Pain, Chest. 25 Tablet 1 2 Active Furosemide 40 MG Oral Tablet (Lasix) Take by mouth 1 Tablet in the morning. 90 Tablet 3 2 Active Finasteride 5 MG Oral Tablet (Proscar) Take 1 Tablet (5 mg) by mouth in the morning. 90 Tablet 3 2 Active Losartan Potassium 25 MG Oral Tablet (Cozaar)Indication s:Hypertension goal BP (blood pressure) < 140/90,Systolic CHF with reduced left ventricular function, NYHA class 2 (HCC),Coronary artery disease involving nansemond indian tribe coronary artery of nansem[place] indian tribe heart without angina pectoris TAKE 1/2 TAB BY MOUTH IN THE MORNING *HOLD IF BLOOD PRESSURE IS LESS THAN 110/70 45 Tablet 1 3 Active Sertraline HCl 25 MG Oral Tablet (Zoloft) Take 1 Tablet by mouth in the morning. 90 Tablet 1 3 Active Apixaban 2.5 MG Oral Tablet (Eliquis)Indicatio ns:Coronary artery disease involving nansem[place] indian tribe coronary artery of nansem[place] indian tribe heart without angina pectoris Take 1 Tablet by mouth in the morning and 1 Tablet before bedtime. 180 Tablet 1 3 Active Sennosides-Docusat e Sodium 8.6-50 MG Oral Tablet (Senna S) Take 1 Tablet by mouth in the morning. 90 Tablet 1 3 Active B-12 1000 MCG Oral Tablet Take 1 tablet by mouth daily 90 Tablet 3 3 Active Vitron-C 65-125 MG Oral Tablet (Iron-Vitamin C 65-125 mg per tab)Indications:An emia, unspecified type Take 1 Tablet by mouth once a day on Sunday, Sunday, and Sunday only. 40 Tablet 3 3 Active Folic Acid 1 MG Oral TabletIndications: Anemia, unspecified type TAKE 1 TABLET BY MOUTH EVERY DAY IN THE MORNING 90 Tablet 1 3 Active Atorvastatin Calcium 40 MG Oral Tablet (Lipitor)Indicatio ns:Hyperlipidemia, unspecified hyperlipidemia type TAKE 1 TABLET BY MOUTH EVERYDAY AT BEDTIME 90 Tablet 1 3 Active Carvedilol 3.125 MG Oral Tablet (Coreg)Indications :Systolic CHF with reduced left ventricular function, NYHA class 2 (HCC),Hypertension goal BP (blood pressure) < 140/90,Coronary artery disease involving nansem[place] indian tribe coronary artery of nansem[place] indian tribe heart without angina pectoris Take 1 Tablet by mouth 2 times a day with morning and evening meals. 180 Tablet 1 3 Active Ferrous Sulfate 325 (65 Fe) MG Oral Tablet (Feosol)Indication s:Iron deficiency anemia, unspecified iron deficiency anemia type TAKE 1 TABLET BY MOUTH EVERY DAY IN THE MORNING WITH BREAKFAST 90 Tablet 0 3 Active metFORMIN HCl ER 500 MG [...] the morning. 90 Capsule 1 3 Active Boost Oral Liquid Take by mouth 2 times a day . Use 3-4 times daily when not able to eat due to tooth extraction recently 0 2 07/31/20 23 Discontinued(Nh dication List Clean Up) Isosorbide Mononitrate ER 30 MG Oral Tablet Extended Release 24 Hour (Imdur) Take 0.5 Tablets by mouth in the morning. 90 Tablet 1 3 05/28/20 23 Discontinued Potassium Chloride ER 10 MEQ Oral Capsule Extended ReleaseIndications :Systolic CHF with reduced left ventricular function, NYHA class 2 (HCC) One tablet in the morning 90 Capsule 1 3 05/28/20 23 Discontinued documented as of this encounter (statuses as of 05/29/2023) Active Problems Problem Noted Date Closed fracture of left inferior pubic r [...] without prior episode 10/11/2021 Persistent atrial fibrillation 1 Type 2 diabetes mellitus with stage 3b [...] mRNA, LNP-s, No Pre serve, 2-Dose Series (Flatora) 08/05/2021,12/12/2020,11/21/2020 COVID-19, LNP-s, No Preserve , Rashawn-sucrose, [...] Notes * Thao Fernandez PA-C - 05/29/2023 1:39 PM EDT ON SERVICE NOTE Name: Delio Padilla Date of : 1935 This note pertains to care provided at [facility]. Please see facility medical record for original note. This note is not to be edited or addended in [employer]. Editing or addending needs to occur in the facilities medical record. Subjective: Delio Padilla is a 88 year old male. Pt is seen today for admission to this facility. Prior to admission at this facility yes, 2020 for rehabiliation following left total hip arthroplasty. Inpatient hospital records, labs, and imaging were reviewed, According to the hospital discharge summary: " 88 year old male, patient of Dr Jaelyn Haney, is admitted to [facility] from [facility] on05/28/23 for rehabilitation. 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 Pt fell on 05/22/23, crawled to the phone and called his brother in law who helps tend to patient. His brother in law went to pt's apartment and helped him off the floor. On 05/23/23, pt was found on the floor again by staff who checked in on patient when he didn't answer the door for his delivered meal. He was taken to [facility] ED. He had CT scan of brain which was negative and assessment and discharged back home. Pt again fell that evening and was found on the floor by his neighbor and was brought to [facility] ED. Pt's brother in law states pt has been more confused over the past week and has been missing his routine medication doses. Due to pt's visual problems, he cannot see his medications and forgets to take them. Concern was expressed that pt may need a higher level of care than living alone in an apartment. In the ED, pt was oriented to person, but not time or place. He stated his last fall was several months ago. T: 36.3 C. HR: 60 , RR: 18, BP: 129/55mmHg. Pt c/o bilateral hip pain in the ED. CT scan of brain showed no acute intracranial abnormalities. Xray of bilateral hips and pelvis showed left total hip arthroplasty with subacute left acetabular fracture, moderate right hip arthritis.Chest xray showed cardiomegaly without overt pulmonary edema, trace pleural effusions, cholelithiasis. CT scan of pelvis showed left inferior pubic ring fracture, left superior pubic ring fracture extending to acetabulum, sacral fracture. Trace hemorrhage around fracture site with no large hematoma noted. Left larger than right inguinal hernias with left inguinal hernia containing a nonobstructed loop of bowel. Chronic bladder outlet obstruction. Echocardiogram showed moderate LVH, LV systolic function normal. LVEF 50 to 55%. LA moderately dilated. Severe calcification aortic valve. Moderate aortic regurgitation. Moderate . Moderate MR. Mild TR. CBC: WBC: 8.69. H/H: 10.3 and 30.6. PLT: 163,000. Sodium mildly low at 135. K+ 3.8. creatinine 1.22(baseline 1.2). Troponin elevated 85.1. CK high at 394. Glucose 168mg%. Calcium low at 8.3. Mg+ , lactate and procalcitonin normal. A1C: 6.4%. Total bilirubin mildly elevated at 1.3. direct bilitrubin mildly elevated at 0.4. Blood C&S no growth. Urinalysis unremarkable. EKG showed ventricular pa antonella rhythm with no acute changes. Pt was admitted and begun on IVF. Orthopedic consult was obtained. No surgical intervention recommended. Pt will be treated conservatively with pain control and begin toe touching ambulation to E with walker. He is to followup as an an outpatient in 3 to 4 weeks Pt's pain remained pretty well controlled. His mentation returned back to his baseline. Discharge hemoglobin 10.7. discharge creatinine 0.87. Discussion was held with family concerning pt's polypharmacy, missing his medication doses and needfor a higher level of care than living at home alone. Pt is now admitted to [facility] on 05/28/23 for rehabilitation and possible LTC. Code status is Full Code . This was discussed in full. Patient Active Problem List Diagnosis Code Hypertension goal BP (blood pressure) < 140/90 I10 Mitral stenosis I05.0 Hyperlipidemia E78.5 Coronary artery disease involving nansem[place] ind[place] tribe coronary artery of nansemond indian tribe heart without angina pectoris I25.10 Aortic stenosis [...] left ventricular function, NYHA class 2 (HCC) I50.20 Hiatal hernia K44.9 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 S/p left hip fracture Z87.81 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) F32.0 Persistent atrial fibrillation (HCC) I48.19 Type 2 diabetes mellitus with stage 3b chronic kidney disease (HCC) E11.22, N18.32 Chronic kidney disease, stage 3b ([facility]) N18.32 Closed nondisplaced fracture of medial wall of left acetabulum ([facility]) S32.475A Calculus of gallbladder without cholecystitis without obstruction K80.20 Past Medical History: Diagnosis Date Aortic stenosis CAD (coronary artery disease) Chest pain DM (diabetes mellitus) ([facility]) DVT prophylaxis 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 HTN (hypertension) Hyperlipidemia Hypertension Mitral regurgitation Mitral stenosis S/P cardiac pacemaker procedure S/P total left hip arthroplasty 10/11/2021 Systolic CHF with reduced left ventricular function, NYHA class 2 ([facility]) 01/06/2020 Past Surgical History: Procedure Laterality Date CABG, ARTERIAL, SINGLE 2000 COLONOSCOPY, DIAGNOSTIC (RECTUM) 09/09/2019 poor prep, repeat / COLONOSCOPY FLEXIBLE PROXIMAL DIAGNOSTIC [facility]ONOS[facility], DIAGNOSTIC (RECTUM) 09/10/2019 normal / COLONOSCOPY FLEXIBLE PROXIMAL DIAGNOSTIC performed by Filipe Hankins MD at [facility] EGD, FLEXIBLE, DIAGNOSTIC 07/21/2021 hiatal hernia / [facility] TOTAL HIP REPLACEMENT & PROSTHESIS [...] facility's medical record forthe most up-to-date medication list. Review of Systems: Constitutional ROS: No change in weight, + weakness, + fatigue and No fevers, sweats, or chills Eye ROS:blindness right eye with poor vision in left eye Ear ROS: No ear pain, No drainage, No tinnitus or vertigo and No recent change in hearing Nose [...] no distress, well nourished and well developed Head: Normocephalic, No masses, lesions, tenderness or abnormalities Eye Exam: Conjunctiva are pink and non-injected, sclera clear Ears: External ears [...] normal, no rashes or significant lesions ASSESSMENT: Frequent falls (Primary) Reviewed [facility] notes at length Safety precautions in place PT/OT as directed Closed nondisplaced fracture of medial wall of left acetabulum, initial encounter (HCC) Pain currently controlled with prn Tylenol and prn Tramadol Continue with above and begin PT/OT as directed Follow up with orthopedics in 10 to 14 days Closed fracture of superior ramus of left pubis, initial encounter ([facility]) Pain currently controlled with prn Tylenol and prn Tramadol Continue with above and begin PT/OT as directed Follow up with orthopedics in 10 to 14 days Closed fracture of left inferior pubic ramus, initial encounter ([facility]) Pain currently controlled with prn Tylenol and prn Tramadol Continue with above and begin PT/OT as directed Follow up with orthopedics in 10 to 14 days Closed fracture of sacrum, unspecified portion of sacrum, initial encounter ([facility]) Pain currently controlled with prn Tylenol and prn Tramadol Continue with above and begin PT/OT as directed Follow up with orthopedics in 3 to 4 weeks Acute metabolic encephalopathy At baseline currently Repeat CBC, CMP tomorrow Persistent atrial fibrillation (HCC) Stable rate Continue Eliquis 2.5mg BID and ASA 81mg daily S/P total left hip arthroplasty Coronary artery disease involving nansem[place] indian tribe coronary artery of nansem[place] indian tribe heart without angina pectoris Stable no chest pain Continue ASA 81mg daily and Lipitor 40mg HS and Imdur 30mg daily Type 2 diabetes mellitus with stage 3b chronic kidney disease, without long-term current use of insulin ([facility]) A1C 6.4% This afternoon's glucose 342mg%. AM glucose 123mg% Will follow closely May consider stopping Metformin 500mg daily 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) Stable mood and mentation Continue Sertraline 25mg daily Systolic CHF with reduced left ventricular function, NYHA class 2 (HCC) Stable No active CHF at this time Continue lasix 40mg daily, Losartan 12.5mg daily, Coreg 3.125mg BID B12 deficiency Continue Vitamin B12 1000mcg daily - Admission studies: CBC and CMP - - Reviewed and approved medication list. Medications are now as follows: Current Outpatient Medications Medication Sig Dispense Refill Isosorbide Mononitrate ER 30 MG Oral Tablet Extended Release 24 Hour (Imdur) Take 1 Tablet by mouth in the morning. 90 Tablet 1 Potassium Chloride ER 10 MEQ Oral Capsule Extended Release Take 1 Capsule by mouth in the morning. One tablet in the morning. 90 Capsule 1 Acetaminophen 325 MG Oral Tablet (Tylenol) Take 2 Tablets by mouth every 4 hours as needed for Fever >38C(100.5F) or Pain, Breakthrough. 100 Tablet 0 Aspirin EC 81 MG Oral Tablet Delayed Release Take 1 Tablet by mouth daily. 100 Tablet 3 Brimonidine Tartrate 0.2 % Ophthalmic Solution (Alphagan) Instill 1 Drop into the left eye 3 times a day. 5 mL 0 Dorzolamide HCl-Timolol Mal 22.3-6.8 MG/ML Ophthalmic Solution (Cosopt Ocumeter Plus) Instill 1Drop into eye 2 times a day. 10 mL 0 Lumigan 0.01 % Ophthalmic Solution (Bimatoprost) Instill 1 Drop into both eyes at bedtime. 3 mL0 Nitroglycerin 0.4 MG Sublingual Tablet Sublingual (Nitrostat) Place 1 Tablet under the tongue every 5 minutes as needed for Pain, Chest. 25 Tablet 1 Furosemide 40 MG Oral Tablet (Lasix) Take by mouth 1 Tablet in the morning. 90 Tablet 3 Finasteride 5 MG Oral Tablet (Proscar) Take 1 Tablet (5 mg) by mouth in the morning. 90 Tablet 3 Losartan Potassium 25 MG Oral Tablet (Cozaar) TAKE 1/2 TAB BY MOUTH IN THE MORNING *HOLD IF BLOOD PRESSURE IS LESS THAN 110/70 45 Tablet 1 Sertraline HCl 25 MG Oral Tablet (Zoloft) Take 1 Tablet by mouth in the morning. 90 Tablet 1 Apixaban 2.5 MG Oral Tablet (Eliquis) Take 1 Tablet by mouth in the morning and 1 Tablet beforebedtime. 180 Tablet 1 Sennosides-Docusate Sodium 8.6-50 MG Oral Tablet (Senna S) Take 1 Tablet by mouth in the morning. 90 Tablet 1 B-12 1000 MCG Oral Tablet Take 1 tablet by mouth daily 90 Tablet 3 Vitron-C 65-125 MG Oral Tablet (Iron-Vitamin C 65-125 mg per tab) Take 1 Tablet by mouth once aday on Sunday, Sunday, and Sunday only. 40 [...] morning and evening meals. 180 Tablet 1 Ferrous Sulfate 325 (65 Fe) MG Oral Tablet (Feosol) TAKE 1 TABLET BY MOUTH EVERY DAY IN THE MORNING WITH BREAKFAST 90 Tablet 0 metFORMIN HCl ER 500 MG Oral Tablet Extended Release 24 Hour (Glucophage XR) Take 1 Tablet by mouth in the morning. 90 Tablet 3 traMADol HCl 50 MG Oral Tablet (Ultram) Take 1 Tablet by mouth every 6 hours as needed for Pain, Moderate or Pain, Severe. 60 Tablet 0 No current facility-administered medications for this visit. -Follow facility bowel protocol. -Speech therapy, PT/OT, nutrition services, social science professor for discharge as necessary. - Discussed all this with both pt and staff. - Will continue to follow. Nursing Home Home Treatment Given: Orthopedics followup 3 to 4 weeks Electronically signed by: Thao Fernandez PA-C 05/29/2023 documented in this encounter Plan of Treatment Upcoming Encounters Date Type Specialty Care Team Description 05/30/2023 Retirement Visit Family Medicine Angel Coronel MD [address] [place] [address] [place] [id number] 06/19/2023 Cardiac Studies Cardiology [facility], Pacer [facility] [address] [place] [phone] 07/18/2023 Office Visit Family Medicine Jaelyn Pemberton MD [address] [place] [address] [place] [id number] 08/02/2023 Office Visit Cardiology Shorty Rich DO [address] [place] [phone] 09/18/2023 Office Visit Cardiology Shorty Rich DO [address] [place] [address] 09/26/2023 Office Visit Urology Vitaliy Maria MD [address] [place] [id number] 12/17/2023 Office Visit Dermatology Keiar De Jesus PA-C [address] [place] [address] [place] [id number] 05/02/2024 Nurse Only Ancillary Paolo, Nurse Annual Wellness [address] [place] [address] [place] [id number] Health Maintenance Due Date Last Done Comments COVID-19 Vaccine (5 - Pfizer series) 05/31/2022 04/05/2022, 08/05/2021, 12/12/2020, Additional history exists Influenza Vaccine (FLU shot) (#1) 2023 07/11/2022, 09/09/2021, 07/10/2020, Additional history exists Albumin/Creatinine Ratio 07/11/2023 07/11/2022, 08/30 HbA1c 07/15/2023 01/12/2023, 090 04/2022, 11/22/2021, Additional history exists CKD PHOS USE SMARTSET 59182 01/13/2024 01/12/2023, 0 05/04/2021 Depression Screening, Annual for Pts 12 and Over 04/30/2024 04/30/2023 CKD HGB USE SMARTSET 45922 05/22/202405/22, 01/12/2023, 12/30/2021, Additional history exists DTaP,Tdap,and [...] history of fall Closed nondisplaced fracture of medial wall of left acetabulum, initial encounter ([facility]) Closed fracture of superior ramus of left pubis, initial encounter ([facility]) Closed fracture of left inferior pubic ramus, initial encounter ([facility]) Closed fracture of sacrum, unspecified portion of sacrum, initial encounter ([facility]) Acute metabolic encephalopathy Persistent atrial fibrillation ([facility]) Atrial fibrillation S/P total left hip arthroplasty Coronary artery disease involving nansem[place] indian tribe coronary artery of nansem[place] indian tribe heart without angina pectoris Type 2 diabetes mellitus with stage 3b chronic kidney disease, without long-term current use of insulin ([facility]) 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 episode ([facility]) Systolic CHF with reduced left ventricular function, NYHA class 2 ([facility]) Unspecified systolic heart failure B12 deficiency Other B-complex deficiencies documented in this encounter Advance Directives Documents on File Type Date Recorded Patient 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
--- OUTSIDE RECORDS SUMMARY | 2023-09-23 21:08 | External Medical Summary | Summary of Care ---
Author Name Unknown Organization [facility] Address [address] [place] [address] Phone [phone] Care Team Providers Care Ruffling Machine Operator Name Role Phone Jaelyn Pemberton MD Primary Care Prov ider Reason for Visit * Reason Onset Date Comments Skilled Visit 06/04/2023 Encounter Details Date Type Department Care Team Description 06/04/2023 Usp Visit [facility] [address] [place] [address] Thao Fernandez PA-C [address] [place] [address] Leukocytosis, unspecified type*; Dysuria; Closed fracture of superior ramus of left pubis with routine healing; Closed fracture of left inferior pubic ramus with routine healing, subsequent encounter; Closed nondisplaced fracture of medial wall of left acetabulum with routine healing, subsequent encounter; Closed nondisplaced zone III fracture of sacrum with routine healing, subsequent encounter; Type 2 diabetes mellitus with stage 3b chronic kidney disease, without long-term current use of insulin ([facility]); 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 90 Tablet 1 12/19/2022 Active Apixaban 2.5 MG Oral Tablet (Eliquis)Indications: Coronary artery disease involving siletz tribe coronary artery of s[place] tribe heart without angina pectoris Take 1 [...] (blood pressure) < 140/90,Coronary artery disease involving siletz tribe coronary artery of [place] tribe heart without angina pectoris Take 1 [...] stenosis Hyperlipidemia Coronary artery disease invo lving siletz tribe coronary artery of s[place]tz tribe heart without angina pectoris Moderate aortic [...] Progress Notes * Thao Fernandez PA-C - 06/04/2023 12:41 PM EDT Name: Delio Padilla Date of :1935 TRANSITION EVENT: Type: Skilled visit Date: June 04 Code Status: Full Code This note pertains to care provided at [facility]. Please see facility medical record for original note. This note is not to be edited or addended in [email or web address]. Editing or addending [facility]. Subjective: Delio Padilla is a 88 year old male. Patient being seen for skilled visit Chief Complaint Patient presents with Skilled Visit HPI: Here for rehabilitation following fall with fx pubic rami and sacrum. Pain pretty well controlled with current Rx of Tylenol prn and Tramadol Q six hours prn. Tolerating Therapy but progressing very slowly. Eating, drinking and sleeping ok. Pt noted to have elevated WBC ct at 14,000. Pt having no chills or fever. No cough, change in breathing, wheezing. When questioned pt does admit to having some dysuria but no frequency, urgency, gross hematuria or nocturia. No abdominal pains nausea, vomiting or diarrhea. CBC Results: Results for orders placed or [...] orders placed or performed in visit on 07/05/22 BASIC METABOLIC PANEL Result Value Ref Range BUN 30 (H) 6 - 20 mg/dL Creatinine 1.3 (H) 0.6 - 1.2 mg/dL Estimated Glomerular Filtration Rate 55 (L) >=60 mL/min Sodium 138 135 - 146 mmol/L Potassium 4.5 3.5 - 5.1 mmol/L Chloride 103 98 - 107 mmol/L CO2 26 22 - 32 mmol/L Anion Gap 9 7 - 15 mmol/L Glucose 167 (H) 70 - 120 mg/dL Calcium 9.0 8.4 - 10.2 mg/dL Creatinine Results: Lab [...] SODIUM - [facility] 139 03/31/2020 01:13 PM ALT Results: Lab Results Component Value Date/Time ALT - [facility] 13 05/30/2023 05:05 AM ALT - [facility] 7 (L) 03/31/2020 01:13 PM ALT - [facility] 6 (L) 08/20/2019 04:24 PM ALT-OUTSIDE LAB 18 05/22/2023 12:00 AM AST Results: Lab Results Component Value Date/Time AST - [facility] 20 05/30/2023 05:05 AM AST - [facility] 17 03/31/2020 01:13 PM AST - [facility] 16 08/20/2019 04:24 PM Hepatic Panel Results: Results for orders placed or performed in visit on 03/31/20 HEP FUNCTION PANEL Result Value Ref Range Albumin 4.1 3.8 - 5.0 g/dL AST 17 10 - 50 U/L Alkaline Phosphatase 61 0 - 153 U/L ALT 7 (L) 10 - 50 U/L Bilirubin, Total 0.4 0 - 1.2 mg/dL Bilirubin, Direct <0.2 0 - 0.3 mg/dL Protein 6.2 6.0 - 8.3 g/dL Patient Active Problem List Diagnosis Code Hypertension goal BP (blood pressure) < 140/90 I10 Mitral stenosis I05.0 Hyperlipidemia E78.5 Coronary artery disease involving siletz tribe coronary artery of siletz tribe heart without angina pectoris I25.10 Moderate aortic [...] reduced left ventricular function, NYHA class 2 ([facility]) I50.20 Hiatal hernia K44.9 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 S/p left hip fracture Z87.81 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 episode ([facility]) F32.0 Persistent atrial fibrillation ([facility]) I48.19 Type 2 diabetes mellitus with stage 3b chronic kidney disease ([facility]) E11.22, N18.32 Chronic kidney disease, stage 3b ([facility]) N18.32 Closed nondisplaced fracture of medial wall of left acetabulum ([facility]) S32.475A Calculus of gallbladder without cholecystitis without obstruction K80.20 Closed fracture of left inferior pubic ramus ([facility]) S32.592A Closed fracture of sacrum with [...] artery disease) Chest pain DM (diabetes mellitus) ([facility]) DVT prophylaxis 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 LVEF 50 to 55%. LA moderately dilated. Severe calcification aortic valve. Moderate aortic regurgitation. Moderate . Moderate MR. Mild TR. [facility] CABG, ARTERIAL, SINGLE 1999 COLONOSCOPY, DIAGNOSTIC (RECTUM) 09/09/2019 poor prep, repeat / COLONOSCOPY FLEXIBLE PROXIMAL DIAGNOSTIC performed by Filipe Hankins MD atENDOSCOPY [facility] COLONOSCOPY, DIAGNOSTIC (RECTUM) 09/10/2019 normal / COLONOSCOPY FLEXIBLE PROXIMAL DIAGNOSTIC performed by Filipe Hankins MD at ENDOSCOPY [facility] EGD, FLEXIBLE, DIAGNOSTIC 07/21/2021 hiatal hernia / [facility] TOTAL HIP REPLACEMENT & PROSTHESIS Left [...] Pipe, Cigarettes Quit date: 2019 Years since quittin.6 Smokeless tobacco: Never Tobacco [...] list as this cannot be edited in [employer]. Review of Systems: Constitutional ROS: No change in weight, No change in weakness, No change in fatigue and No fevers,sweats, or chills Eye ROS: blind right eye, vision loss OS Nose ROS: No nasal stuffiness and No [...] Normocephalic, No masses, lesions, tenderness or abnormalities Nose: no mucosal erythema, no mucosal edema, [...] moves all extremities with good strength ASSESSMENT: Leukocytosis, unspecified type (Primary) wBC ct 14,000 Will check urine dip and C&S Will obtain CXR to rule out pneumonia Will repeat CBC with anemia panel on Sunday Will follow closely Dysuria Check urine dip and C&S Closed fracture of superior ramus of left pubis with routine healing Pain well controlled Continue Tylenol prn and Tramadol 50mg Q six hours prn mod to severe pain Closed fracture of left inferior pubic ramus with routine healing, subsequent encounter Pain well controlled Continue Tylenol prn and Tramadol 50mg Q six hours prn mod to severe pain Closed nondisplaced fracture of medial wall of left acetabulum with routine healing, subsequent encounter Pain well controlled Continue Tylenol prn and Tramadol 50mg Q six hours prn mod to severe pain Closed nondisplaced zone III fracture of sacrum with routine healing, subsequent encounter Pain well controlled Continue Tylenol prn and Tramadol 50mg Q six hours prn mod to severe pain Type 2 diabetes mellitus with stage 3b chronic kidney disease, without long-term current use of insulin (HCC) Glucoses stable Will reduce accuchecks to fasting and two hours post prandial two days weekly 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 Long Term Home Treatment Given: as above Electronically signed by: Thao Fernandez PA-C Over 45 minutes were spent in this visit more than half the time was spent counselling or coordinating care. documented in this encounter Plan of Treatment Upcoming Encounters Date Type Specialty Care Team Description 06/19/2023 Cardiac Studies Cardiology [facility] [address] [place] [address] 07/18/2023 Office Visit Family Medicine Jaelyn Pemberton MD [address] [place] [address] [place] [id number] 08/02/2023 Office Visit Cardiology Shorty Rich, [address] [place] [address] 09/18/2023 Office Visit Cardiology Shorty Rich, [address] [place] [address] 09/26/2023 Office Visit Urology Vitaliy Maria MD [address] [place] [address] 12/17/2023 Office Visit Dermatology Keira De Jesus PA-C [address] [place] [address] [place] [address] 05/02/2024 Nurse Only Ancillary [place], Nurse [facility] [address] [place] [address] [place] [address] Health Maintenance Due Date Last Done Comments COVID-19 Vaccine (5 - Pfizer series) 05/31/2022 04/05/2022, 08/05/2021, 12/12/2020, Additional history exists Influenza Vaccine (FLU shot) (#1) 2023 07/11/2022, 09/09/2021, 07/10/2020, Additional history exists Albumin/Creatinine Ratio 07/11/2023 07/11/2022, 08/30 HbA1c 07/15/2023 01/12/2023, 0904/2022, 11/22/2021, Additional history exists CKD PHOS USE SMARTSET 87674 01/13/2024 01/12/2023, 0 05/04/2021 Depression Screening, Annual for Pts 12 and Over 04/30/2024 04/30/2023 CKD HGB USE SMARTSET 28143 06/04/202406/04, 05/30/2023, 05/30/2023, Additional history exists DTaP,Tdap,and [...] as of this encounter Visit Diagnoses Diagnosis Leukocytosis, unspecified type- Primary Dysuria Closed fracture of superior ramus of left pubis with routine healing Closed fracture of left inferior pubic ramus with routine healing, subsequent encounter Closed nondisplaced fracture of medial wall of left acetabulum with routine healing, subsequent encounter Closed nondisplaced zone III fracture of sacrum with routine healing, subsequent encounter Type 2 diabetes mellitus with stage 3b chronic kidney disease, without long-term current use of insulin ([facility]) 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 Profound, moderate or severe vision impairment, not further specified Systolic CHF with reduced left ventricular function, NYHA class 2 ([facility]) Unspecified systolic heart failure documented in this encounter Advance Directives Documents on File Type Date Recorded Patient Instruction Librarian Expl anation Power of Middle School Band Teacher 01/13/2019 POWER OF A TTORNEY Healthcare Agents on File Name Relationship Healthcare Agent Relationship Communication Ian Henriquez Other - (no specific identity) Health Care Agent (per Health Care Power of Middle School Band Teacher document) Care Teams Ruffling Machine Operator Relationship Specialty Start Date End Date Jaelyn Pemberton MD [address] [place] [address] [place] [address] PCP - General Family Medicine 08/20/19 documented as of this encounter
--- OUTSIDE RECORDS SUMMARY | 2023-09-23 21:08 | External Medical Summary | Continuity Of Care Document ---
Author Name Unknown Address [address] [place] [address] Organization [facility] ( ) Care Team Providers Care Fretted String Instrument Repairer Name Role Phone Mansoor Coronelrogerkishor Primary Care Provider [phone] VITAL SIGNS Date Time Diastolic blood pressure Systolic blood pressure Body height Body weight Temperature SpO2 Blood Sugar Pulse Respirations 731 06671 9 52.00 mm[Hg] - Sitting 116.00 mm[Hg] - Sitting 69 NI 160.00 NI 98.50 Oral 97.00 % 18.00/min 04984 731 50331 4 52.00 mm[Hg] - Lying Down 116.00 mm[Hg] - Lying Down 98.50 Ear 64.00/ min 18.00/min 23058 801 98801 3 73.00 mm[Hg] - Sitting 137.00 mm[Hg] - Sitting 160.00 NI 98.10 Oral 93.00 % 18.00/min 47199 801 18179 6 Immunizations Vaccine Date Status COVID-19 11/21/2020 Completed COVID-19 12/12/2020 Completed COVID-19 08/05/2021 Completed COVID-19 04/05/2022 Completed Influenza 09/09/2021 Completed (PCV13)Pneumococcal 08/20/2019 Completed (PPSV23)Pneumococcal 08/23/2020 Completed Shingles 08/08/2020 Completed TDaP 08/23/2020 Completed Shingles 2 04/22/2021 Completed
--- OUTSIDE RECORDS SUMMARY | 2023-09-23 21:08 | External Medical Summary | Summary of Care ---
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)*; Acetabular fracture (HCC); DM foot ulcer (HCC); CKD (chronic kidney disease), symptom management only; Elevated LFTs Allergies No known active allergiesdocumented as of this encounter (statuses as of 05/30/2023) Medications Medication Sig Dispensed Refills Start Date [...] Oral Tablet (Eliquis)Indications: Coronary artery disease involving chilkat coronary artery of [...] as of this encounter (statuses as of 05/30/2023) Active Problems Problem Noted Date Closed fracture [...] as of this encounter (statuses as of 05/30/2023) Resolved Problems Problem Noted Date Resolved Date [...] as of this encounter (statuses as of 05/30/2023) Immunizations Name Administration Dates Next Due COVID-19 [...] Date Type Specialty Care Team Description 05/30/2023 Laboratory Laboratory Processing [address] [place], [place] [address] Arrived 05/30/2023 Retirement Visit Family Medicine Angel Coronel MD [address] [place] [address] [place] [address] 06/19/2023 Cardiac Studies Cardiology [facility] [address] [place] [address] 07/18/2023 Office Visit Family Medicine Jaelyn Pemberton MD [address] [place] [address] [place] [address] 08/02/2023 Office Visit Cardiology Shorty Rich DO [address] [place] [address] 09/18/2023 Office Visit Cardiology Shorty Rich DO [address] [place] [address] 09/26/2023 Office Visit Urology Vitaliy Maria MD [address] [address] [place] [address] 12/17/2023 Office Visit Dermatology Keira De Jesus PA-C [address] [place] [address] [place] [address] 05/02/2024 Nurse Only Ancillary Nurse Paolo [facility] [address] [place] [address] [place] [address] Scheduled Orders Name Type Priority Associated Diagnoses Orde r Schedule COMPREHENSIVE METABOLIC PANEL Lab Routine 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) Acetabular fracture (HCC) DM foot ulcer (HCC) CKD (chronic kidney disease), symptom management only Elevated LFTs Expected: 05/30/2023, Expires: 05/30/2024 CBC WITH WBC DIFFERENTIAL Lab Routine 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) Acetabular fracture (HCC) DM foot ulcer (HCC) CKD (chronic kidney disease), symptom management only Elevated LFTs Expected: 05/30/2023, Expires: 05/30/2024 Health Maintenance Due Date Last Done Comments COVID-19 Vaccine (5 - Pfizer series) 05/31/2022 04/05/2022, 08/05/2021, 12/12/2020, Additional history exists Influenza Vaccine (FLU shot) (#1) 2023 07/11/2022, 09/09/2021, 07/10/2020, Additional history exists Albumin/Creatinine Ratio 07/11/2023 07/11/2022, 08/30 HbA1c 07/15/2023 01/12/2023, 04/2022, 11/22/2021, Additional history exists CKD PHOS USE SMARTSET 81154 01/13/2024 01/12/2023, 0 05/04/2021 Depression Screening, Annual for Pts 12 and Over 04/30/2024 04/30/2023 CKD HGB USE SMARTSET 44109 05/22/202405/22, 01/12/2023, 12/30/2021, Additional history exists DTaP,Tdap,and [...] as of this encounter Visit Diagnoses Diagnosis 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)- Primary Heart failure, unspecified Acetabular fracture (HCC) Closed fracture of acetabulum DM foot ulcer (HCC) Type II or unspecified type diabetes mellitus with other specified manifestations, not stated as uncontrolled CKD (chronic kidney disease), symptom management only Chronic kidney disease, unspecified Elevated LFTs Other abnormal blood chemistry documented in this encounter Advance Directives Documents on File Type Date Recorded Patient Research Consultant Expl anation Power of [place]per 01/13/2019 POWER OF A TTORNEY Healthcare Agents on File Name Relationship Healthcare Agent Relationship Communication Ian Henriquez Other - (no specific identity) Health Care Agent (per Health Care Power of Typer document) Care Teams Inward Toll Operator Relationship Specialty Start Date End Date Jaelyn Pemberton MD [address] [place] [address] [place] [address] PCP - General Family Medicine 08/20/19 documented as of this encounter
--- OUTSIDE RECORDS SUMMARY | 2023-09-23 21:08 | External Medical Summary | Continuity Of Care Document ---
Author Name Unknown Address [address] [place] [address] Organization [facility] ( ) Care Team Providers Care Tester Food Products Name Role Phone Angel Coronel Primary Care Provider [phone] VITAL SIGNS Date Time Diastolic blood pressure Systolic blood pressure Body height Body weight Temperature SpO2 Blood Sugar Pulse Respirations 731 98405 9 52.00 mm[Hg] - Sitting 116.00 mm[Hg] - Sitting 69 NI 160.00 NI 98.50 Oral 97.00 % 18.00/min 78490 731 73517 4 52.00 mm[Hg] - Lying Down 116.00 mm[Hg] - Lying Down 98.50 Ear 64.00/ min 18.00/min 71335 801 36298 3 73.00 mm[Hg] - Sitting 137.00 mm[Hg] - Sitting 160.00 NI 98.10 Oral 93.00 % 18.00/min 15169 801 93367 6 28321 801 98511 5 50.00 mm[Hg] - Sitting 118.00 mm[Hg] - Sitting 96.80 Oral 96.00 % 60.00/ min 59764 801 95437 0 162.00 NI 12414 801 12799 8 161.00 NI 69057 801 29843 9 56.00 mm[Hg] - Sitting 95.00 mm[Hg] - Sitting 96.00 Ear 61.00/ min 18.00/min 10175 802 94984 3 56.00 mm[Hg] - Sitting 95.00 mm[Hg] - Sitting 96.00 Ear 61.00/ min 18.00/min 85886 802 10042 6 95244 802 73430 6 56.00 mm[Hg] - Sitting 95.00 mm[Hg] - Sitting 96.00 Ear 61.00/ min 18.00/min 63974 802 92927 1 161.00 NI 42301 802 84040 5 161.00 NI 83965 803 00221 5 69.00 mm[Hg] - Sitting 154.00 mm[Hg] - Sitting 98.60 Ear 91.00 % 64.00/ min 803 37163 7 64.00 mm[Hg] - Sitting 113.00 mm[Hg] - Sitting 97.20 Oral 94.00 % 71.00/ min 804 17465 3 67.00 mm[Hg] - Sitting 173.00 mm[Hg] - Sitting 97.20 Ear 93.00 % 62.00/ min 804 24280 5 157.00 NI 804 79436 6 161.00 NI 804 52592 1 68.00 mm[Hg] - Sitting 178.00 mm[Hg] - Sitting 99.00 Ear 93.00 % 66.00/ min Immunizations Vaccine Date Status COVID-19 11/21/2020 Completed COVID-19 12/12/2020 Completed COVID-19 08/05/2021 Completed COVID-19 04/05/2022 Completed Influenza 09/09/2021 Completed (PCV13)Pneumococcal 08/20/2019 Completed (PPSV23)Pneumococcal 08/23/2020 Completed Shingles 08/08/2020 Completed TDaP 08/23/2020 Completed Shingles 2 04/22/2021 Completed
--- OUTSIDE RECORDS SUMMARY | 2023-09-23 21:08 | External Medical Summary | Summary of Care ---
Author Name Unknown Organization [facility] Address [address] [place] [address] Phone [phone] Care Team Providers Care Laboratory Operations Coordinator Name Role Phone Jaelyn Pemberton MD Primary Care Prov ider Reason for Visit * Reason Onset Date Comments Group Home Visit - Admission 05/30/2023 Encounter Details Date Type Department Care Team Description 05/30/2023 Group Home Visit [address] [place] [address] Angel Coronel MD [address] [place] [address] [place] [address] Closed nondisplaced fracture of medial wall of left acetabulum with routine healing, subsequent encounter*; Closed nondisplaced zone III fracture of sacrum with routine healing, subsequent encounter; Closed fracture of left inferior pubic ramus with routine healing, subsequent encounter; Falls frequently; Closed fracture of superior ramus of left pubis with routine healing; Persistent atrial fibrillation ([facility]); Type 2 diabetes mellitus with stage 3b chronic kidney disease, without long-term current use of insulin ([facility]); 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 episode ([facility]); Systolic CHF with reduced left ventricular function, NYHA class 2 ([facility]); Nonrheumatic mitral valve stenosis; Coronary artery disease involving [place] coronary artery of [place] heart without angina pectoris; Neoplasm of uncertain behavior of skin; 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 90 Tablet 1 12/19/2022 Active Apixaban 2.5 MG Oral Tablet (Eliquis)Indications: Coronary artery disease involving [place] coronary artery of [place] heart without angina pectoris Take 1 Tablet [...] (blood pressure) < 140/90,Coronary artery disease involving [place] coronary artery of [place] heart without angina pectoris Take 1 Tablet [...] stenosis Hyperlipidemia Coronary artery disease invo lving [place] coronary artery of [place] heart without angina pectoris Moderate aortic stenosis [...] mRNA, LNP-s, No Pre serve, 2-Dose Series ([email or web address]) 08/05/2021,12/12/2020,11/21/2020 COVID-19, LNP-s, No Preserve , Rashawn-sucrose, [...] Progress Notes * Angel Coronel MD - 05/30/2023 10:24 AM EDT ADMISSION HISTORY and PHYSICAL TRANSITION EVENT: Type: SNF admission Date: May 28 Code Status: Full Code Name: Delio Padilla Date of : 1935 This note pertains to care provided at [facility]. Please see facility medical record for original note. This note is not to be edited or addended in [facility]. Editing or addending needs to occur in the facilities medical record. S: Delio Padilla had been admitted to [facility] from [facility] for PT and OT. Recently admitted to [facility] on 05/24/23 because of falls with left acetabular fracture, left superior and inferior pubic rami fractures, and horizontal sacral fracture and was transferred here and admitted on 05/28/2023. Patient of Dr. Andujar with PMH of chronic atrial fibrillation on Eliquis, s/p pacemaker, hypertension, dyslipidemia, type 2 diabetes mellitus with stage 3b CKD, blind right eye with low vision in left, CAD, chronic systolic CHF, mitral stenosis, aortic regurgitation, depression, and h/o left hip fracture s/p arthroplasty 09/2021 who presented to [facility] with multiple falls over the past few days prior to admission. Patient lives in independent living apartments at [facility] but had multiple falls the week of admission. His tiskaoi-cg-cwa, Ian, helped get him up after one fall when patientmanaged to call him for help. He fell again the day prior to admission and staff found him down in his apartment after he did not order picker/assembler his meal and he was taken to [facility], where head CT was negative and he was discharged back home. He fell again the day of admission and neighbor found him and he was brought to [facility] ED. Mmsytbg-ge-wuu states patient had been confused over the last week and his pillbox did not have any medications taken out of it for the last 2 days. Patient had head CT, which was negative for acute changes. CXR showed cardiomegaly without pulmonary edema, tracepleural effusions, and cholelithiasis. CT of the pelvis showed a left inferior pubic ring fracture,left superior pubic ring fracture extending to the acetabulum, and horizontal fracture of the sacrum through the S3-4 levels. Patient does have prior hip arthroplasty from left hip fracture 09/2021. T roponin was slightly elevated at 65 and peaked at 118 before reducing to 85. EKG with paced rhythm and no change from previous. Echo showed no wall motion abnormality, EF of 50% and unchanged from prior. Pacemaker was interrogated without any events. He also had mild rhabdomyolysis and treated withIV fluids. His Eliquis was continued and recommended to discuss in future with cardiology if shouldbe continued due to falls. Patient was seen by orthopedics who recommended toe-touch weight bearing to the left lower extremity but no surgical intervention. He is to follow-up with Dr. Davila in 3-4 weeks after discharge. Hewas started on Tramadol for pain control and Senna for bowel regimen. Kidney function remained stable around 1.22 on admission and improved to 0.87 on discharge. Hemoglobin was 9.2 on admission and 10.7 on discharge. He is on iron chronically for anemia. His A1C was 6.4. His metformin was held while admitted and treated with sliding scale insulin and metformin resumed on discharge. Patient is now admitted for PT/OT. He reports he is having left hip pain with movement and therapy but the Tramadol and tylenol do help the pain for a while. Appetite is good and he reports eating all of his meals. States his bowels are moving OK. He denies chest pain, palpitations, or shortness ofbreath. He is noted to have large scabbed lesion on his lower chin. Patient states he cut his chin shaving about 2 years ago and it never healed. Has never seen dermatology for it. Past Medical History: Patient Active Problem List Diagnosis Code Hypertension goal BP (blood pressure) < 140/90 I10 Mitral stenosis I05.0 Hyperlipidemia E78.5 Coronary artery disease involving [place] coronary artery of [place] heart without angina pectoris I25.10 Moderate aortic [...] ventricular function, NYHA class 2 ([facility]) I50.20 Hiatal hernia K44.9 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 S/p left hip fracture Z87.81 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 episode ([facility]) F32.0 Persistent atrial fibrillation ([facility]) I48.19 Type 2 diabetes mellitus with stage 3b chronic kidney disease ([facility]) E11.22, N18.32 Chronic kidney disease, stage 3b ([facility]) N18.32 Closed nondisplaced fracture of medial wall of left acetabulum ([facility]) S32.475A Calculus of gallbladder without cholecystitis without obstruction K80.20 Closed fracture of left inferior pubic ramus ([facility]) S32.592A Closed fracture of sacrum with routine healing S32.10XD Calcification of aortic valve I35.9 Moderate aortic regurgitation with left ventricular dilation by prior echocardiogram I35.1, I51.7 Moderate mitral regurgitation by prior echocardiogram I34.0 Mild tricuspid regurgitation by prior echocardiogram I07.1 Full code status Z78.9 Closed fracture of superior ramus of left pubis with routine healing S32.512D Current Outpatient Medications Medication Sig Dispense Refill [...] tablet in the morning. 90 Capsule 1 No current facility-administered medications for this visit. Review of patient's allergies indicates: No Known Allergies Social History Tobacco Use Smoking status: Former Packs/day: 5.00 Years: 3.00 Pack years: 15.00 Types: Pipe, Cigarettes Quit date: 2018 Years since quittin.5 Smokeless tobacco: Never Tobacco comments: Rarely smokes a pipe, infrequent Substance Use Topics Alcohol use: Yes Comment: rare Vaping/E-Cigarette Use Vaping/E-Cigarette Use Never User Vaping/E-Cigarette Substances Vaping/E-Cigarette Devices Past Surgical History: Procedure Laterality Date ADULT ECHOCARDIOGRAM 05/25/2023 moderate LVH, LV systolic function normal. LVEF 50 to 55%. LA moderately dilated. Severe calcification aortic valve. Moderate aortic regurgitation. Moderate . Moderate MR. Mild TR. [facility] CABG, ARTERIAL, SINGLE 1999 COLONOSCOPY, DIAGNOSTIC (RECTUM) 09/09/2019 poor prep, repeat / COLONOSCOPY FLEXIBLE PROXIMAL DIAGNOSTIC performed by Filipe Hankins MD [facility] COLONOSCOPY, DIAGNOSTIC (RECTUM) 09/10/2019 normal / COLONOSCOPY FLEXIBLE PROXIMAL DIAGNOSTIC performed by Filipe Hankins MD at ENDOSCOPY [facility] EGD, FLEXIBLE, DIAGNOSTIC 07/21/2021 hiatal hernia / [facility] TOTAL HIP REPLACEMENT & PROSTHESIS Left 10/07/2021 Dr. Davila--left hip fracture Family History Problem Relation Age of Onset Heart Disorder Mother Heart disease Mother Cancer Father prostate Prostate cancer Father Family Status Relation Status Mo Fa Son Alive Son Alive Results for orders placed or performed in visit on 05/30/23 COMPREHENSIVE METABOLIC PANEL Result Value Ref Range BUN 24 (H) 6 - 20 mg/dL Creatinine 1.0 0.6 - 1.2 mg/dL Estimated Glomerular Filtration Rate 70 >=60 mL/min Sodium 140 135 - 146 mmol/L Potassium 3.8 3.5 - 5.1 mmol/L Chloride 107 98 - 107 mmol/L CO2 24 22 - 32 mmol/L Anion Gap 9 7 - 15 mmol/L Glucose 106 70 - 120 mg/dL Albumin 3.1 (L) 3.8 - 5.0 g/dL AST 20 10 - 50 U/L Alkaline Phosphatase 65 35 - 130 U/L Bilirubin, Total 0.5 <=1.2 mg/dL Calcium 8.4 8.4 - 10.2 mg/dL Protein 5.4 (L) 6.0 - 8.3 g/dL ALT 13 10 - 50 U/L CBC Result Value Ref Range WBC 7.90 4.00 - 10.80 K/uL RBC 2.99 4.50 - 5.25 M/uL HGB 9.7 (L) 14.0 - 16.8 g/dL HCT 29.9 (L) 40.0 - 48.4 % MCV 100.0 82.0 - 99.5 fL MCH 32.4 27.0 - 34.0 pg MCHC 32.4 32.0 - 36.0 g/dL RDW 14.1 11.5 - 15.5 % PLT 193 140 - 400 K/uL MPV 10.3 6.6 - 11.1 fL DIFFERENTIAL, AUTOMATED Result Value Ref Range WBC 7.90 4.00 - 10.80 K/uL Neutrophils % 62.8 40.0 - 75.0 % Lymphocytes % 17.7 (L) 18.0 - 42.0 % Monocytes % 8.6 1.0 - 11.0 % Eosinophils % 10.4 (H) 0.0 - 6.0 % Basophils % 0.5 0.0 - 2.0 % Absolute Neutrophils 4.96 1.80 - 7.70 K/uL Absolute Lymphocytes 1.40 1.00 - 4.80 K/ul Absolute Monocytes 0.68 0.00 - 1.10 K/uL Absolute Eosinophils 0.82 (H) 0.00 - 0.70 K/uL Absolute Basophils 0.04 0.00 - 0.20 K/uL Review of Systems: Constitutional ROS: No change in weight, No fatigue, No fevers, sweats, or chills and +generalized weakness Eye ROS: No eye pain, redness, discharge and +blind right eye and poor vision in left eye Ear ROS: No ear pain, No drainage, No tinnitus or vertigo and No recent change in hearing Nose ROS: No history of frequent colds or sinusitis, No nasal stuffiness, No history of Hay Fever and No significant epistaxis Mouth/Throat ROS: No bleeding gums, No thrush or No sore throat Pulmonary ROS: No cough, sputum, or hemoptysis, No wheezing, No shortness of breath and No recent change in breathing Cardiovascular ROS: No chest pain, No shortness of breath, No dyspnea on exertion, No orthopnea, Noparoxysmal nocturnal dyspnea, No edema, No palpitations and No syncope Gastrointestinal ROS: No abdominal pain, No change in bowel habits, No significant heartburn, No significant change in appetite, No nausea, vomiting, diarrhea, or constipation, No hematemesis, No blood in stools or black tarry stools and No abdominal bloating or early satiety Genito-Urinary Male ROS: No dysuria and No frequency Musculoskeletal/Extremities ROS: +as per HPI Hematologic/Lymphatic ROS: No coagulation disorder, No abnormal bleeding, No chills and +iron deficiency anemia Skin/Integumentary ROS: No rash Neurologic ROS: No headaches, No seizures and +frequent falls and intermittent confusion Endocrine ROS: No thyroid trouble and +type 2 diabetes Psychiatric ROS: +depression ADL skills: dependent Ambulates toe touch to LLE with walker OBJECTIVE: PHYSICAL EXAM: I reviewed the most recent facilities vitals. Refer to vital signs flowsheet in prison chart.General: alert, no distress, well nourished and well developed Head: Normocephalic, No masses, lesions, tenderness or abnormalities Eye Exam: +cloudy, deviated right eye Ears: External ears normal Nose: no mucosal erythema, no mucosal edema, no purulent discharge Oropharynx: no exudate, no erythema, lips, buccal mucosa, and tongue normal and mucous membranes are moist Neck: supple, no adenopathy, no bruits Heart: regular rate & rhythm, no gallops and 3/6 holosystolic low pitched harsh murmur aortic area Lungs: chest symmetric with normal AP diameter, no chest deformities noted, no chest wall tenderness, lungs clear to auscultation Abdomen: abdomen soft, non-tender, normal bowel sounds and no masses or organomegaly Extremities: no edema, no clubbing, no cyanosis Neuro Exam: alert & oriented x 3 with fluent speech, no focal motor/sensory deficits Skin: large scabbed/ulcerated lesion of right lower chin ASSESSMENT: Closed nondisplaced fracture of medial wall of left acetabulum with routine healing, subsequent encounter (Primary)--here for PT/OT. To follow-up with Dr. Davila in 3-4 weeks and remain toe touch weight bearing until that time. Continue Tramadol and Tylenol for pain control. Closed nondisplaced zone III fracture of sacrum with routine healing, subsequent encounter--as above Closed fracture of left inferior pubic ramus with routine healing, subsequent encounter--as above Falls frequently--here for PT/OT. ?if he may need to remain in higher level of care. Was falling frequently living alone at his apartment. Closed fracture of superior ramus of left pubis with routine healing--as above Persistent atrial fibrillation (HCC)--rate controlled with carvedilol 3.125 mg twice daily. Has pacemaker. Anticoagulated with Eliquis. Type 2 diabetes mellitus with stage 3b chronic kidney disease, without long-term current use of insulin ([facility])--controlled with metformin 500 mg daily. 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 episode ([facility])--controlled with sertraline 25 mg daily. Systolic CHF with reduced left ventricular function, NYHA class 2 ([facility])--continue furosemide 40 mg daily. Appears euvolemic. Nonrheumatic mitral valve stenosis--stable Coronary artery disease involving [place] coronary artery of [place] heart without angina pectoris--stable. Continue aspirin 81 mg daily, atorvastatin 40 mg daily, isosorbide ER 30 mg daily, and losartan 12.5 mg daily Neoplasm of uncertain behavior of skin--referral to dermatology. Patient reports has been present for 2 years. 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 PLAN: 1. Continue present medication(s): Referral(s) to: Dermatology for evaluation of suspicious non-healing skin lesion of right chin. Referral to Dr. Davila in 3-4 weeks to f/u left acetabular fracture. F/U with cardiology as directed. Schedule labs: H&H on 06/04/23 2. Admission orders, medications, labs, hospital records and care plan reviewed. 3. [employer] Liaison Officer consult, Physical Therapy, Occupational Therapy and Speech Therapy ordered. 4. Care plan reviewed. 5. Advance Directives were discussed: Full Code 6. Senior Care Home Treatment Given: N/A Electronically signed by: Angel Coronel MD I spent a total of 45 minutes coordinating, documenting, and providing care for this patient excluding time spent in the performance of separately billed services or time spent by another provider/QHP. documented in this encounter Plan of Treatment Upcoming Encounters Date Type Specialty Care Team Description 06/19/2023 Cardiac Studies [facility]iology [facility] [address] [place] [address] 07/18/2023 Office Visit Family Medicine Jaelyn Pemberton MD [address] [place] [address] [place] [phone] 08/02/2023 Office Visit Cardiology Shorty Rich DO [address] [place] [address] 09/18/2023 Office Visit Cardiology Shorty Rich DO [address] [place] [address] 09/26/2023 Office Visit Urology Vitaliy Maria MD [address] [place] [address] 12/17/2023 Office Visit Dermatology Keira De Jesus PA-C [address] [place] [address] [place] [address] 05/02/2024 Nurse Only Ancillary Nurse [facility] [address] [place] [address] [place] [address] Health Maintenance Due Date Last Done Comments COVID-19 Vaccine (5 - Pfizer series) 05/31/2022 04/05/2022, 08/05/2021, 12/12/2020, Additional history exists Influenza Vaccine (FLU shot) (#1) 2023 07/11/2022, 09/09/2021, 07/10/2020, Additional history exists Albumin/Creatinine Ratio 07/11/2023 07/11/2022, 112 04/2019 HbA1c 07/15/2023 01/12/2023, 09/0 04/2022, 11/22/2021, Additional history exists CKD PHOS USE SMARTSET 87037 01/13/2024 01/12/2023, 0 05/04/2021 Depression Screening, Annual for Pts 12 and Over 04/30/2024 04/30/2023 CKD HGB USE SMARTSET 23640 05/30/202405/30, 05/30/2023, 05/22/2023, Additional history exists DTaP,Tdap,and [...] acetabulum with routine healing, subsequent encounter- Primary Closed nondisplaced zone III fracture of sacrum with routine healing, subsequent encounter Closed fracture of left inferior pubic ramus with routine healing, subsequent encounter Falls frequently Personal history of fall Closed fracture of superior ramus of left pubis with routine healing Persistent atrial fibrillation (HCC) Atrial fibrillation Type 2 diabetes mellitus with stage 3b chronic kidney disease, without long-term current use of insulin (HCC) 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) Systolic CHF with reduced left ventricular function, NYHA class 2 (HCC) Unspecified systolic heart failure Nonrheumatic mitral valve stenosis Coronary artery disease involving [place] coronary artery of [place] heart without angina pectoris 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 Profound, moderate or severe vision impairment, not further specified documented in this encounter Advance Directives Documents on File Type Date Recorded Patient Doctor Of Podiatric Medicine Expl anation Power of Care Director 01/13/2019 POWER OF A TTORNEY Healthcare Agents on File Name Relationship Healthcare Agent Relationship Communication Ian Henriquez Other - (no specific identity) Health Care Agent (per Health Care Power of Care Director document) Care Teams Laboratory Operations Coordinator Relationship Specialty Start Date End Date Jaelyn Pemberton MD [address] [place] [address] [place] [id number] PCP - General Family Medicine 08/20/19 documented as of this encounter
--- OUTSIDE RECORDS SUMMARY | 2023-09-23 21:09 | External Medical Summary | Summary of Care ---
Author Name Unknown Organization [facility] Address [address] [place] [address] Phone [phone] Care Team Providers Care Surface Grinder Name Role Phone Jaelyn Pemberton MD Primary Care Prov ider Encounter Details Date Type Department Care Team Description 05/24/2023 Orders Only [facility] Medicine [address] [id number] Jaelyn Pemberton MD [address] [place] [address] [id number] Allergies No known active allergiesdocumented as of this encounter (statuses as of 05/24/2023) Medications Medication Sig Dispensed Refills Start Date [...] Pain, Chest. 25 Tablet 1 11/17/2021 Active Boost Oral Liquid Take by mouth 2 times a day . Use 3-4 times daily when not able to eat due to tooth extraction recently 0 12/02/2021 Active Furosemide 40 MG Oral Tablet (Lasix) [...] NYHA class 2 (HCC),Coronary artery disease involving [place] coronary artery of [place] heart without angina pectoris TAKE 1/2 TAB BY MOUTH IN THE MORNING *HOLD IF BLOOD PRESSURE IS LESS THAN 110/70 45 Tablet 1 12/18/2022 Active Sertraline HCl 25 MG Oral Tablet (Zoloft) Take 1 Tablet by mouth in the morning. 90 Tablet 1 12/19/2022 Active Apixaban 2.5 MG Oral Tablet (Eliquis)Indications: Coronary artery disease involving [place] coronary artery of [place] heart without angina pectoris Take 1 Tablet by mouth in the morning and 1 Tablet before bedtime. 180 Tablet 1 12/18/2022 Active Sennosides-Docusate Sodium 8.6-50 MG Oral Tablet (Senna S) Take 1 Tablet by mouth in the morning. 90 Tablet 1 01/01/2023 Active Isosorbide Mononitrate ER 30 MG Oral Tablet Extended Release 24 Hour (Imdur) Take 0.5 Tablets by mouth in the morning. 90 Tablet 1 01/22/2023 Active B-12 1000 MCG Oral Tablet Take 1 tablet by mouth daily 90 Tablet 3 02/07/2023 Active Vitron-C 65-125 MG Oral Tablet (Iron-Vitamin C 65-125 mg per tab)Indications:Anemi a, unspecified type Take 1 Tablet by mouth once a day on Sunday, Sunday, and Sunday only. 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 90 Tablet 3 05/08/2023 Active documented as of this encounter (statuses as of 05/24/2023) Active Problems Problem Noted Date S/P total left hip arthroplasty 10/11/20 21 [...] stenosis Hyperlipidemia Coronary artery disease invo lving [place] coronary artery of [place] heart without angina pectoris Aortic stenosis documented as of this encounter (statuses as of 05/24/2023) Resolved Problems Problem Noted Date Resolved Date [...] as of this encounter (statuses as of 05/24/2023) Immunizations Name Administration Dates Next Due COVID-19 mRNA, LNP-s, No Pre serve, 2-Dose Series ([employer]) 08/05/2021,12/12/2020,11/21/2020 COVID-19, LNP-s, No Preserve , Rashawn-sucrose, [...] Description 06/19/2023 Cardiac Studies Cardiology [facility] [address] [place] [address] 07/18/2023 Office Visit Family Medicine Jaelyn Pemberton MD [address] [place] [address] [place] [address] 08/02/2023 Office Visit Cardiology Shorty Rich DO [address] [place] [address] 09/26/2023 Office Visit Urology Vitaliy Maria MD [facility] [address] [place] [address] 12/17/2023 Office Visit Dermatology Keira De Jesus PA-C [address] [place] [address] [place] [address] 05/02/2024 Nurse Only Ancillary Paolo, Nurse [facility] [address] [place] [address] [place] [address] Health Maintenance Due Date Last Done Comments COVID-19 Vaccine (5 - Pfizer series) 05/31/2022 04/05/2022, 08/05/2021, 12/12/2020, Additional history exists Influenza Vaccine (FLU shot) (#1) 2023 07/11/2022, 09/09/2021, 07/10/2020, Additional history exists Albumin/Creatinine Ratio 07/11/2023 07/11/2022, 2 04/2019 HbA1c 07/15/2023 01/12/2023, 090 04/2022, 11/22/2021, Additional history exists CKD PHOS USE SMARTSET 85702 01/13/2024 01/12/2023, 0 05/04/2021 Depression Screening, Annual for Pts 12 and Over 04/30/2024 04/30/2023 CKD HGB USE SMARTSET 25637 05/22/202405/22, 01/12/2023, 12/30/2021, Additional history exists DTaP,Tdap,and [...] Not on filedocumented as of this encounter Procedures Procedure Name Priority Date/Time Associated Diagnosis Comments COMPREHENSIVE METABOLIC PANEL Routine 05/22/2023 CBC WITH WBC DIFFERENTIAL Routine 05/22/2023 documented in this encounter Results * (ABNORMAL) CBC WITH WBC DIFFERENTIAL (05/22/2023) HEMOGLOBIN-OUT SIDE LAB 9.9(A) 13.5 - 18.0 G/DL OUTSIDE LAB (SEE SCANNED REPORT) Blood Venous blood specimen / Unknown 05/22/2023 Abigail Yañez MD LAB BLOOD ORDERABLES Performing Organization Address [facility] Co de Phone Number OUTSIDE LAB (SEE SCANNED REPORT) * (ABNORMAL) COMPREHENSIVE METABOLIC PANEL (05/22/2023) Pathologist [facility] CREATININE-OUT SIDE LAB 1.41(A) 0.70 - 1.30 MG/DL OUTSIDE LAB (SEE SCANNED REPORT) EGFR-OUTSIDE LAB 48(A) >60 ML/MIN OUTSIDE LAB (SEE SCANNED REPORT) POTASSIUM-OUTS CAROLANN LAB 4.2 3.5 - 5.1 MMOL/L OUTSIDE LAB (SEE SCANNED REPORT) GLUCOSE-OUTSID E LAB 135(A) 70 - 110 MG/DL OUTSIDE LAB (SEE SCANNED REPORT) ALT-OUTSIDE LAB 18 16 - 61 U/L OUTSIDE LAB (SEE SCANNED REPORT) Blood Venous blood specimen / Unknown 05/22/2023 Abigail Yañez MD LAB BLOOD ORDERABLES Performing Organization Address [facility] Co de Phone Number OUTSIDE LAB (SEE SCANNED REPORT) documented in this encounter Advance Directives Documents on File Type Date Recorded Patient Supervisor Engraving Expl anation Power of It Investment/Portfolio Manager 01/13/2019 POWER OF A TTORNEY Healthcare Agents on File Name Relationship Healthcare Agent Relationship Communication Ian Henriquez Other - (no specific identity) Health Care Agent (per Health Care Power of It Investment/Portfolio Manager document) Care Teams Surface Grinder Relationship Specialty Start Date End Date Jaelyn Pemberton MD [address] [place] [address] [place] [address] PCP - General Family Medicine 08/20/19 documented as of this encounter
--- OUTSIDE RECORDS SUMMARY | 2023-09-23 21:09 | External Medical Summary | Summary of Care ---
Author Name Unknown Organization [facility] Address [address] [place] [address] Phone [phone] Care Team Providers Care Billboard Poster Name Role Phone Jaelyn Contreras MD Primary Care Prov ider Reason for Visit * Reason Comments eRx-Medication Refill Encounter Details Date Type Department Care Team Description 05/01/2023 Refill Family Medicine [address] [place] [address] Jaelyn Contreras MD [address] [place] [address] [place] [address] Chronic kidney disease, stage 3b (HCC)*; Iron deficiency anemia, unspecified iron deficiency anemia type; Mixed hyperlipidemia; Type 2 diabetes mellitus with stage 3b chronic kidney disease, without long-term current use of insulin (HCC) Allergies No known active allergiesdocumented as of this encounter (statuses as of 05/02/2023) Medications Medication Sig Dispensed Refills Start Date [...] Pain, Chest. 25 Tablet 1 2 Active Boost Oral Liquid Take by mouth 2 times a day . Use 3-4 times daily when not able to eat due to tooth extraction recently 0 2 Active Furosemide 40 MG Oral Tablet [...] NYHA class 2 (HCC),Coronary artery disease involving [place] coronary artery of [place] heart without angina pectoris TAKE 1/2 TAB BY MOUTH IN THE MORNING *HOLD IF BLOOD PRESSURE IS LESS THAN 110/70 45 Tablet 1 3 Active Sertraline HCl 25 MG Oral Tablet (Zoloft) Take 1 Tablet by mouth in the morning. 90 Tablet 1 3 Active Apixaban 2.5 MG Oral Tablet (Eliquis)Indication s:Coronary artery disease involving [place] coronary artery of [place] heart without angina pectoris Take 1 Tablet by mouth in the morning and 1 Tablet before bedtime. 180 Tablet 1 3 Active Sennosides-Docusate Sodium 8.6-50 MG Oral Tablet (Senna S) Take 1 Tablet by mouth in the morning. 90 Tablet 1 3 Active Isosorbide Mononitrate ER 30 MG Oral Tablet Extended Release 24 Hour (Imdur) Take 0.5 Tablets by mouth in the morning. 90 Tablet 1 3 Active B-12 1000 MCG Oral Tablet Take 1 tablet by mouth daily 90 Tablet 3 3 Active metFORMIN HCl ER 500 MG Oral Tablet Extended Release 24 Hour (Glucophage XR) Take 1 Tablet by mouth in the morning. 30 Tablet 11 3 Active Vitron-C 65-125 MG Oral Tablet (Iron-Vitamin C 65-125 mg per tab)Indications:Ane debbie, unspecified type Take 1 Tablet by mouth once a day on Sunday, Sunday, and Sunday only. 40 Tablet 3 3 Active Potassium Chloride ER 10 MEQ Oral Capsule Extended ReleaseIndications: Systolic CHF with reduced left ventricular function, NYHA class 2 (HCC) One tablet in the morning 90 Capsule 1 3 Active Folic Acid 1 MG Oral [...] (blood pressure) < 140/90,Coronary artery disease involving [place] coronary artery of [place] heart without angina pectoris Take 1 Tablet by mouth 2 times a day with morning and evening meals. 180 Tablet 1 3 Active Ferrous Sulfate 325 (65 Fe) MG Oral Tablet (Feosol)Indications :Iron deficiency anemia, unspecified iron deficiency anemia type TAKE 1 TABLET BY MOUTH EVERY DAY IN THE MORNING WITH BREAKFAST 90 Tablet 0 3 Active Ferrous Sulfate 325 (65 Fe) MG Oral Tablet (Feosol)Indications :Iron deficiency anemia, unspecified iron deficiency anemia type TAKE 1 TABLET (325 MG) DAILY WITH BREAKFAST BY MOUTH. 90 Tablet 0 3 05/02/20 23 Discontinued documented as of this encounter (statuses as of 05/02/2023) Active Problems Problem Noted Date S/P total [...] stenosis Hyperlipidemia Coronary artery disease invo lving [place] coronary artery of [place] heart without angina pectoris Aortic stenosis documented as of this encounter (statuses as of 05/02/2023) Resolved Problems Problem Noted Date Resolved Date [...] as of this encounter (statuses as of 05/02/2023) Immunizations Name Administration Dates Next Due COVID-19 mRNA, LNP-s, No Pre serve, 2-Dose Series ([employer]) 08/05/2021,12/12/2020,11/21/2020 COVID-19, LNP-s, No Preserve , Rashawn-sucrose, Ages 12+ ([employer]) 04/05/2022 Pneumococcal Conjugate Vacc, 13 Valent (Prevnar) [...] encounter Miscellaneous Notes * Telephone Encounter - Geena Andujar, clinical trial manager - 05/02/2023 11:54 AM EDT Received message from [facility] regarding patient needing labs. Placed call to patient to advise. Pt was agreeable to have labs drawn but would prefer to walk-in at their convenience. Thank you, Geena Andujar [employer]ing [employer] [facility] 05/02/2023, 11:54 AM * Telephone Encounter - Radha Kelley RPh - 05/02/2023 11:29 AM EDTSigned Prescriptions: Disp Refills Ferrous Sulfate 325 (65 Fe) MG Oral Tablet*90 Tab*0 Sig: TAKE 1 TABLET BY MOUTH EVERY DAY IN THE MORNING WITH BREAKFAST Authorizing Provider: JAELYN CONTRERAS Ordering User: RADHA KELLEY * Telephone Encounter - Radha Kelley RPh - 05/02/2023 11:25 AM EDT Provided 90 days supply with 0 refill(s) until upcoming appointment. Reviewed AMP report, Care Gaps/Health Maintenance, medications list, and for any routine labs typically ordered for this patient. Lab orders placed 02-06-23, 05-02-23. Please contact patient to advise of labs ordered for blood draw AND URINE specimen (patient will have to be able to void to provide sample). Fasting is not required. Advise to obtain labs before his scheduled office visit 07/18/2023. Thanks, Rubina Godwin.Ph. Clinical Pharmacist [facility] [phone] ext [phone] 05/02/2023,11:27 AM documented in this encounter Plan of Treatment Upcoming Encounters Date Type Specialty Care Team Description 06/19[facility] [address] [place] [address] 07/18/2023 Office Visit Family Medicine Jaelyn Contreras MD [address] [place] [address] [place] [address] 08/02/2023 Office Visit Cardiology Shorty Rich, DO [address] [place] [address] 09/26/2023 Office Visit Urology Vitaliy Maria MD [address] [place] [address] [place] [address] 12/17/2023 Office Visit Dermatology Keira De Jesus PA-C [address] [place] [address] [place] [address] 05/02/2024 Nurse Only Ancillary [place], Nurse Annual [facility] [address] [place] [address] [place] [address] Scheduled Orders Name Type Priority Associated Diagnoses Orde r Schedule RENAL FUNCTION PANEL Lab Routine Chronic kidney disease, stage 3b (HCC) Type 2 diabetes mellitus with stage 3b chronic kidney disease, without long-term current use of insulin (HCC) Expected: 05/03/2023 (Approximate), Expires: 05/02/2024 LDL CHOLESTEROL (DIRECT MEASURE) Lab Routine Mixed hyperlipidemia Expected: 05/03/2023 (Approximate), Expires: 05/02/2024 ALBUMIN / CREATININE RATIO, URINE Lab Routine Chronic kidney disease, stage 3b (HCC) Type 2 diabetes mellitus with stage 3b chronic kidney disease, without long-term current use of insulin (HCC) Expected: 05/03/2023 (Approximate), Expires: 05/02/2024 HEMOGLOBIN A1C Lab Routine Type 2 diabetes mellitus with stage 3b chronic kidney disease, without long-term current use of insulin (HCC) Expected: 05/03/2023 (Approximate), Expires: 05/02/2024 CBC WITH WBC DIFFERENTIAL AND ANEMIA REFLEX WORKUP Lab Routine Iron deficiency anemia, unspecified iron deficiency anemia type Chronic kidney disease, stage 3b (HCC) Expected: 05/03/2023 (Approximate), Expires: 05/02/2024 Health Maintenance Due Date Last Done Comments COVID-19 Vaccine (5 - Pfizer series) 05/31/2022 04/05/2022, 08/05/2021, 12/12/2020, Additional history exists Influenza Vaccine (FLU shot) (#1) 2023 07/11/2022, 09/09/2021, 07/10/2020, Additional history exists Albumin/Creatinine Ratio 07/11/2023 07/11/2022, 08/30 HbA1c 07/15/2023 01/12/2023, 09/0 04/2022, 11/22/2021, Additional history exists CKD HGB USE SMARTSET 51779 01/13/202401/12, 12/30/2021, 12/30/2021, Additional history exists CKD PHOS USE SMARTSET 68387 01/13/2024 01/12/2023, 0 05/04/2021 Depression Screening, Annual for Pts 12 and Over 04/30/2024 04/30/2023 DTaP,Tdap,and Td Vaccines (2 - Td or [...] of this encounter Visit Diagnoses Diagnosis Chronic kidney disease, stage 3b (HCC)- Primary Iron deficiency anemia, unspecified iron deficiency anemia type Mixed hyperlipidemia Type 2 diabetes mellitus with stage 3b chronic kidney disease, without long-term current use of insulin (HCC) documented in this encounter Advance Directives Documents on File Type Date Recorded Patient Quality Compliance Manager Expl anation Power of Test Boring Crew Chief 01/13/2019 POWER OF A TTORNEY Healthcare Agents on File Name Relationship Healthcare Agent Relationship Communication Ian Henriquez Other - (no specific identity) Health Care Agent (per Health Care Power of Test Boring Crew Chief document) Care Teams Billboard Poster Relationship Specialty Start Date End Date Jaelyn Contreras MD [address] [place] [address] [place] [address] PCP - General Family Medicine 08/20/19 documented as of this encounter
--- OUTSIDE RECORDS SUMMARY | 2023-09-23 21:09 | External Medical Summary | Summary of Care ---
Author Name Unknown Organization [facility] Address [address] [place] [address] Phone [phone] Care Team Providers Care Surveillance Observer Name Role Phone Jaelyn Pemberton MD Primary Care Prov ider Encounter Details Date Type Department Care Team Description 05/22/2023 Result Scan Unspecified Department <No scans attached> Allergies No known active allergiesdocumented as of [...] NYHA class 2 (HCC),Coronary artery disease involving [place] coronary artery of [place] heart without angina pectoris TAKE 1/2 TAB BY MOUTH IN THE MORNING *HOLD IF BLOOD PRESSURE IS LESS THAN 110/70 45 Tablet 1 12/18/2022 Active Sertraline HCl 25 MG Oral Tablet (Zoloft) Take 1 Tablet by mouth in the morning. 90 Tablet 1 12/19/2022 Active Apixaban 2.5 MG Oral Tablet (Eliquis)Indications: Coronary artery disease involving [place] coronary artery of [place] heart without angina pectoris Take 1 Tablet [...] (blood pressure) < 140/90,Coronary artery disease involving [place] coronary artery of [place] heart without angina pectoris Take 1 Tablet [...] stenosis Hyperlipidemia Coronary artery disease invo lving [place] coronary artery of [place] heart without angina pectoris Aortic stenosis documented [...] mRNA, LNP-s, No Pre serve, 2-Dose Series ([employer]) 08/05/2021,12/12/2020,11/21/2020 COVID-19, LNP-s, No Preserve , Rashawn-sucrose, [...] Care Team Description 06/19/[address] [facility] [address] [place] [address] 07/18/2023 Office Visit Family Medicine Jaelyn Pemberton MD [address] [place] [address] [place] [address] 08/02/2023 Office Visit Cardiology Shorty Rich DO [address] [place] [address] 09/26/2023 Office Visit Urology Vitaliy Maria MD 27 [facility] [address] [place] [address] 12/17/2023 Office Visit Dermatology Keira De Jesus PA-C [address] [place] [address] [place] [address] 05/02/2024 Nurse Only Ancillary Nurse Paolo [facility] [address] [place] [address] [place] [address] Health Maintenance Due Date Last Done Comments COVID-19 Vaccine (5 - Pfizer series) 05/31/2022 04/05/2022, 08/05/2021, 12/12/2020, Additional history exists Influenza Vaccine (FLU shot) (#1) 2023 07/11/2022, 09/09/2021, 07/10/2020, Additional history exists Albumin/Creatinine Ratio 07/11/2023 07/11/2022, 08/30 HbA1c 07/15/2023 01/12/2023, 04/2022, 11/22/2021, Additional history exists CKD HGB USE SMARTSET 29628 01/13/202401/12, 12/30/2021, 12/30/2021, Additional history exists CKD PHOS USE SMARTSET 99710 01/13/2024 01/12/2023, 0 05/04/2021 Depression Screening, Annual [...] Procedure Name Priority Date/Time Associated Diagnosis Comments RADIOLOGY SCANNED RESULT 05/22/2023 RADIOLOGY SCANNED RESULT 05/22/2023 RADIOLOGY SCANNED RESULT 05/22/2023 RADIOLOGY SCANNED RESULT 05/22/2023 documented in this encounter Results * RADIOLOGY SCANNED RESULT (05/22/2023) 05/22/2023 No Physician Data Unknown DIAGNOSTIC RAD IOLOGY SERVICES * RADIOLOGY SCANNED RESULT (05/22/2023) 05/22/2023 No Physician Data Unknown DIAGNOSTIC RAD IOLOGY SERVICES * RADIOLOGY SCANNED RESULT (05/22/2023) 05/22/2023 No Physician Data Unknown DIAGNOSTIC RAD IOLOGY SERVICES * RADIOLOGY SCANNED RESULT (05/22/2023) 05/22/2023 No Physician Data Unknown DIAGNOSTIC RAD IOLOGY SERVICES documented in this encounter Advance Directives Documents on File Type Date Recorded Patient Vp Treasurer Expl anation Power of Skin Carver 01/13/2019 POWER OF A TTORNEY Healthcare Agents on File Name Relationship Healthcare Agent Relationship Communication Ian Henriquez Other - (no specific identity) Health Care Agent (per Health Care Power of Skin Carver document) Care Teams Surveillance Observer Relationship Specialty Start Date End Date Jaelyn Pemberton MD [address] [place] [address] [place] [phone] PCP - General Family Medicine 08/20/19 documented as of this encounter
--- OUTSIDE RECORDS SUMMARY | 2023-09-23 21:09 | External Medical Summary | Summary of Care ---
Author Name Unknown Organization [facility] Address [address] [place] [address] Phone [phone] Care Team Providers Care Athletic Director Name Role Phone Shante Contreras MD Primary Care Prov ider Reason for Visit * Reason Comments eRx-Medication Refill Encounter Details Date Type Department Care Team Description 04/06/2023 Refill Family [address] [phone] Shante Contreras MD [address] [place] [address] [place] [id number] Hyperlipidemia, unspecified hyperlipidemia type Allergies No known active allergiesdocumented as of this encounter (statuses as of 04/07/2023) Medications Medication Sig Dispensed Refills Start Date [...] the morning. 90 Tablet 3 2 Active Carvedilol 3.125 MG Oral Tablet (Coreg)Indications: Systolic CHF with reduced left ventricular function, NYHA class 2 (HCC),Hypertension goal BP (blood pressure) < 140/90,Coronary artery disease involving [place] coronary artery of [place] heart without angina pectoris Take 1 Tablet by mouth 2 times a day with morning and evening meals. 180 Tablet 1 3 Active Losartan Potassium 25 MG Oral Tablet (Cozaar)Indications :Hypertension goal BP (blood pressure) < 140/90,Systolic CHF with reduced left ventricular function, NYHA class 2 (HCC),Coronary artery disease involving [place] coronary artery of [place] heart without angina pectoris TAKE 1/2 TAB BY MOUTH IN THE MORNING *HOLD IF BLOOD PRESSURE IS LESS THAN 110/70 45 Tablet 1 3 Active Sertraline HCl 25 MG Oral Tablet (Zoloft) Take 1 Tablet by mouth in the morning. 90 Tablet 1 3 Active Apixaban 2.5 MG Oral Tablet (Eliquis)Indication s:Coronary artery disease involving [place] coronary artery of [place] heart without angina pectoris Take 1 Tablet [...] the morning. 90 Tablet 1 3 Active Ferrous Sulfate 325 (65 Fe) MG Oral Tablet (Feosol)Indications :Iron deficiency anemia, unspecified iron deficiency anemia type TAKE 1 TABLET (325 MG) DAILY WITH BREAKFAST BY MOUTH. 90 Tablet 0 3 Active B-12 1000 MCG Oral Tablet [...] AT BEDTIME 90 Tablet 1 3 Active Atorvastatin Calcium 40 MG Oral Tablet (Lipitor)Indication s:Hyperlipidemia, unspecified hyperlipidemia type TAKE 1 TABLET BY MOUTH EVERYDAY AT BEDTIME 90 Tablet 1 2 04/07/20 23 Discontinued Hospital, Clinic, or Other Facility Administered Medication Ordered Dose Route Frequency Start Date End Date Status vitamin b-12 (Cyanocobalamin) inj 1,000 mcgIndications:B12 deficiency 1000 mcg IM [id number] 01/12/2023 12/14/2023 Active documented as of this encounter (statuses as of 04/07/2023) Active Problems Problem Noted Date S/P total [...] stenosis Hyperlipidemia Coronary artery disease invo lving [place] coronary artery of [place] heart without angina pectoris Aortic stenosis documented as of this encounter (statuses as of 04/07/2023) Resolved Problems Problem Noted Date Resolved Date [...] as of this encounter (statuses as of 04/07/2023) Immunizations Name Administration Dates Next Due COVID-19 mRNA, LNP-s, No Pre serve, 2-Dose Series ([employer] 08/05/2021,12/12/2020,11/21/2020 COVID-19, LNP-s, No Preserve , Rashawn-sucrose, Ages 12+ ([employer] 04/05/2022 Pneumococcal Conjugate Vacc, 13 Valent (Prevnar) [...] got money to buy more. Never true 01/12/2023 Within the past 12 months, t he food you bought just didn't last and you didn't have money to get more. Never true 01/12/2023 Sex Assigned at Date Recorded Male 04/26/2021 2:45 PM E DT Job Start Date Occupation Industry Not on file Not on file Not on file documented as of this encounter Miscellaneous Notes * Telephone Encounter - Meek Kelley RPh - 04/07/2023 9:57 AM EDTSigned Prescriptions: Disp Refills Atorvastatin Calcium 40 MG Oral Tablet (Li*90 Tab*1 Sig: TAKE 1 TABLET BY MOUTH EVERYDAY AT BEDTIMEAuthorizing Provider: SHANTE CONTRERAS User: MEEK KELLEY documented in this encounter Plan of Treatment Upcoming Encounters Date Type Specialty Care Team Description 04/30/2023 Nurse Only Ancillary Nurse Paolo Annual [address] [place] [id number] 06/19/2023 Cardiac Studies Cardiology Paolo [facility] [address] [place] [id number] 07/18/2023 Office Visit Family Medicine Shante Contreras MD [address] [place] [address] [place] [phone] 08/02/2023 Office Visit Cardiology Shorty Rich DO [address] [place] [phone] 09/26/2023 Office Visit Urology Vitaliy Maria MD [address] [facility] [address] [place] [phone] Health Maintenance Due Date Last Done Comments COVID-19 Vaccine (5 - Booster for Pfizer series) 05/31/2022 04/05/2022, 08/05/2021, 12/12/2020, Additional history exists Depression Screening, Annual for Pts 12 and Over 04/27/2023 04/27/2022 Albumin/Creatinine Ratio 07/11/2023 07/11/2022, 11/2 04/2019 HbA1c 07/15/2023 01/12/2023, 09/0 04/2022, 11/22/2021, Additional history exists CKD HGB USE SMARTSET 35524 01/13/202401/12, 12/30/2021, 12/30/2021, Additional history exists CKD PHOS USE SMARTSET 73607 01/13/2024 01/12/2023, 0 05/04/2021 DTaP,Tdap,and Td Vaccines (2 - Td or Tdap) 08/23/2030 08/23/2020 Pneumococcal Vaccine: 65+ Years Completed 08/23/2020, 08/20/2019 Zoster Vaccines Completed 04/22/2021, 08/08/2020 Influenza Vaccine (FLU shot) Completed , 09/09/2021, 07/10/2020, Additional history exists GARDASIL-HPV IMMUNIZATION SERIES Aged [...] as of this encounter Visit Diagnoses Diagnosis Hyperlipidemia, unspecified hyperlipidemia type documented in this encounter Advance Directives Documents on File Type Date 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
--- OUTSIDE RECORDS SUMMARY | 2023-09-23 21:09 | External Medical Summary | Summary of Care ---
Author Name Unknown Organization [facility] Address [address] [place] [address] Phone [phone] Care Team Providers Care Nurse Outreach Case Manager Name Role Phone Jaelyn Pemberton MD Primary Care Prov ider Encounter Details Date Type Department Care Team Description 05/11/2023 Result Scan Unspecified Department Shorty Rich, DO [address] [place] [address] <No scans attached> Allergies No known active allergiesdocumented as of this encounter (statuses as of 05/11/2023) Medications Medication Sig Dispensed Refills Start Date [...] NYHA class 2 (HCC),Coronary artery disease involving stebbins coronary artery of steb[place] heart without angina pectoris TAKE 1/2 TAB BY MOUTH IN THE MORNING *HOLD IF BLOOD PRESSURE IS LESS THAN 110/70 45 Tablet 1 12/18/2022 Active Sertraline HCl 25 MG Oral Tablet (Zoloft) Take 1 Tablet by mouth in the morning. 90 Tablet 1 12/19/2022 Active Apixaban 2.5 MG Oral Tablet (Eliquis)Indications: Coronary artery disease involving [place] coronary artery of steb[place] heart without angina pectoris Take 1 Tablet [...] (blood pressure) < 140/90,Coronary artery disease involving stebbins coronary artery of stebbins heart without angina pectoris Take 1 Tablet [...] as of this encounter (statuses as of 05/11/2023) Active Problems Problem Noted Date S/P total [...] stenosis Hyperlipidemia Coronary artery disease invo lving stebbins coronary artery of stebbins heart without angina pectoris Aortic stenosis documented as of this encounter (statuses as of 05/11/2023) Resolved Problems Problem Noted Date Resolved Date [...] as of this encounter (statuses as of 05/11/2023) Immunizations Name Administration Dates Next Due COVID-19 mRNA, LNP-s, No Pre serve, 2-Dose Series ([employer]) 08/05/2021,12/12/2020,11/21/2020 COVID-19, LNP-s, No Preserve , Rashawn-sucrose, [...] Description 06/19/2023 Cardiac Studies Cardiology [facility] [address] [place] [address] 07/18/2023 Office Visit Family Medicine Jaelyn Pemberton MD [address] [place] [address] [place] [phone] 08/02/2023 Office Visit Cardiology Shorty Rich DO [address] [place] [address] 09/26/2023 Office Visit Urology Vitaliy Maria MD [address] [place] [address] [place] [address] 12/17/2023 Office Visit Dermatology Keira De Jesus PA-C [address] [place] [address] [place] [phone] 05/02/2024 Nurse Only Ancillary Paolo, Nurse [facility] [address] [place] [address] [place] [phone] Health Maintenance Due Date Last Done Comments COVID-19 Vaccine (5 - Pfizer series) 05/31/2022 04/05/2022, 08/05/2021, 12/12/2020, Additional history exists Influenza Vaccine (FLU shot) (#1) 2023 07/11/2022, 09/09/2021, 07/10/2020, Additional history exists Albumin/Creatinine Ratio 07/11/2023 07/11/2022, 08/30 HbA1c 07/15/2023 01/12/2023, 09/0 04/2022, 11/22/2021, Additional history exists CKD HGB USE SMARTSET 72621 01/13/202401/12, 12/30/2021, 12/30/2021, Additional history exists CKD PHOS USE SMARTSET 89525 01/13/2024 01/12/2023, 0 05/04/2021 Depression Screening, Annual [...] Procedure Name Priority Date/Time Associated Diagnosis Comments CARDIOLOGY SCANNED RESULT 05/11/2023 documented in this encounter Results * CARDIOLOGY SCANNED RESULT (05/11/2023) 05/11/2023 Shorty Rich DO OTHER documented in this encounter Advance Directives Documents on File Type Date Recorded 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
--- OUTSIDE RECORDS SUMMARY | 2023-09-23 21:09 | External Medical Summary | Summary of Care ---
Author Name Unknown Organization [facility] Address [address] [place] [address] Phone [phone] Care Team Providers Care Ship'S Surveyor Name Role Phone Jaelyn Pemberton MD Primary Care Prov ider Reason for Referral * Evaluate & Treat - Unlimited Visits (Within 30 days (routine)) - Authorized Specialty Diagnoses / Procedures Referred By Contsydnee t Referred To Contact Dermatology Diagnoses Non-healing skin lesion Jaelyn Pemberton MD [address] [place] [address] [place] Felder [phone] Referral ID Status Reason Start Date Expiration Date Visits Requested Visits Authorized [id number] Authorized Specialty Services Required 04/30/2023 999 999 Question Answer Referral Priority Within 30 days (routine) Are you referring the patient for Mohs Surgery and have a current positive skin cancer biopsy result? No What is the reason for the patient referral? Rash/Skin Check/Eval of Lesion or Mole Comments Non healing lesion on chin x 2yrs Reason for Visit * Reason Comments Adult Annual Wellness Visit, Subsequent Visit Encounter Details Date Type Department Care Team Description 04/30/2023 Nurse Only Ancillary Brian Maki [address] [place] [phone] [facility] Nurse Annual Wellness [address] [place] [address] [place] Fel[place] [phone] Adult Annual Wellness Visit, Subsequent Visit Allergies No known active allergiesdocumented as of this encounter (statuses as of 04/30/2023) Medications Medication Sig Dispensed Refills Start Date [...] NYHA class 2 (HCC),Coronary artery disease involving [place] coronary artery of [place] heart without angina pectoris TAKE 1/2 TAB BY MOUTH IN THE MORNING *HOLD IF BLOOD PRESSURE IS LESS THAN 110/70 45 Tablet 1 12/18/2022 Active Sertraline HCl 25 MG Oral Tablet (Zoloft) Take 1 Tablet by mouth in the morning. 90 Tablet 1 12/19/2022 Active Apixaban 2.5 MG Oral Tablet (Eliquis)Indications: Coronary artery disease involving [place] coronary artery of [place] heart without angina pectoris Take 1 [...] the morning. 90 Tablet 1 01/22/2023 Active Ferrous Sulfate 325 (65 Fe) MG Oral Tablet (Feosol)Indications:I tian deficiency anemia, unspecified iron deficiency anemia type TAKE 1 TABLET (325 MG) DAILY WITH BREAKFAST BY MOUTH. 90 Tablet 0 02/06/2023 Active B-12 1000 MCG Oral Tablet Take 1 tablet by mouth daily 90 Tablet 3 02/07/2023 Active metFORMIN HCl ER 500 MG Oral Tablet Extended Release 24 Hour (Glucophage XR) Take 1 Tablet by mouth in the morning. 30 Tablet 11 02/12/2023 Active Vitron-C 65-125 MG Oral Tablet (Iron-Vitamin [...] (blood pressure) < 140/90,Coronary artery disease involving blue [place] coronary artery of [place] heart without angina pectoris Take 1 Tablet by mouth 2 times a day with morning and evening meals. 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 Aortic stenosis documented as of this encounter (statuses as of 04/30/2023) Resolved Problems Problem Noted Date Resolved Date [...] as of this encounter (statuses as of 04/30/2023) Immunizations Name Administration Dates Next Due COVID-19 [...] Sign Reading Time Taken Comments Blood Pressure 126/80 04/30/2023 2:08 PM EDT Pulse 72 04/30/2023 2:08 PM EDT Temperature 35.7 C (96.2 F) 04/30/2023 2:08 PM ED T Respiratory Rate - - Oxygen Saturation 93% 04/30/2023 2:08 PM EDT Inhaled Oxygen Concentration - - Weight 71.2 kg (157 lb) 04/30/2023 2:08 PM EDT Height 172.7 cm (5' 8") 04/30/2023 2:08 PM EDT Body Mass Index 23.87 04/30/2023 2:08 PM EDT documented in this encounter Patient Instructions * Patient Instructions* Johnna Bauer RN - 04/30/2023 2:05 PM EDT Patient Instructions - Fall Prevention (This education is for all patients over 65 regardless of symptoms) Remember to take your current medications as prescribed. In order to prevent falls, you are encouraged to: Exercise Utilize assistive/adaptive devices Avoid multifocal lenses when walking Avoid hazards in home Maintain a regular toileting schedule Any questions please contact our office. Preventing Falls in the Home (This education is for all patients over 65 regardless of symptoms) As you get older, falls are more likely. Thats because your reaction time slows. Your muscles and joints may also get stiffer, making them less flexible. Illness, medications, and vision changes can also affect your balance. A fall could leave you unable to live on your own. To make your home safer, follow these tips: Floors Put nonskid pads under area rugs Remove throw rugs Replace worn floor coverings Tack carpets firmly to each step on carpeted stairs. Put nonskid strips on the edges of uncarpeted stairs Keep floors and stairs free of clutter and cords Arrange furniture so there are clear pathways Clean up any spills right away Bathrooms Install grab bars in the tub or shower Apply nonskid strips or put a nonskid rubber mat in the tub or shower Sit on a bath chair to bathe Use bathmats with nonskid backing Lighting Keep a flashlight in each room Put a nightlight along the pathway between the bedroom and the bathroom Charlieashli Patient Education Copyright 2008 - 2010 Misty except where otherwise noted Preventing Falls: Exercises to Improve Balance, Flexibility, Strength, and Staying Power (This education is for all patients over 65 regardless of symptoms) Certain types of exercises may help make you less likely to fall. Try the ones below. Or do other exercises that your healthcare provider suggests. Depending on your health, you may need to start slowly. Dont let that stop you. Even small amounts of exercise can help you. Be sure to talk to yourhealthcare provider before starting any exercise program. Improve Balance Many types of exercise can help improve balance. Aubrey chi and yoga are good examples. Heres another one to try. You can do it anytime and almost anywhere. Stand next to a counter or solid support. Push yourself up onto your tiptoes. Hold for 5 seconds. If you start to lose your balance, hold on to the counter. Rest and repeat 5 times. Work up to holding for 20 to 30 seconds, if you can. Increase Flexibility Being more flexible makes it easier for you to move around safely. Try exercises like the seated hamstring stretch. Sit in a chair and put one foot on a stool. Straighten your leg and reach with both hands down either side of your leg. Reach as far down your leg as you can. Hold for about 20 seconds. Go back to the starting position. Then repeat 5 times. Switch legs. Build Strength Resistance exercises help build strength. You can do them without equipment. Or you can use weights, elastic bands, or special machines. One such exercise is called the biceps curl. You can hold a 1 pound weight or even a can of soup. Do this exercise at least 3 times a week. Strive for everyday. Sit up straight in a chair. Keep your elbow close to your body and your wrist straight. Bend your arm, moving your hand up to your shoulder. Then slowly lower your arm. Repeat 5 times. Switch to the other arm. Build Your Staying Power Aerobic exercises make your heart and lungs stronger so you can keep moving longer. Walking and swimming are two of the best types of exercises you can do. Using a stationary bike is great, too. Find an aerobic exercise that you enjoy. Start slowly and build up. Even 5 minutes is helpful. Aimfor a goal of 30 minutes, at least 3 times a week. You dont have to do 30 minutes in one session. Break it up and walk a little throughout the day. More Helpful Tips Start easy. Slowly work up to doing more. Talk with your healthcare provider about the best exercises for you. Call senior centers or health clubs about exercise programs. If needed, have a family member watch you walk every so often to check your stability. Exercise with a friend. Choose an activity you both enjoy. Try exercises that you can do anytime, anywhere. Here are two examples. Have someone with you when you first try these: Practice walking by placing one foot right in front of the other. Stand up and sit down 10 times. Repeat this throughout the day. Misty Patient Education Copyright 2008 - 2010 Misty except where otherwise noted. Preventing Falls: Moving Safely Using a Cane or Walker (This education is for all patients over 65 regardless of symptoms) Keep the cane away from your feet so you dont trip. A walking aid, such as a cane or walker, can help you stay more independent and avoid falls. Remember to keep your walking aid within easy reach when youre in a chair or in bed. And learn how to use it safely so you dont injure yourself. Using a Cane If you have a stronger side, hold the cane on that side. 17. Get your balance. 18. Move the cane and your weaker leg forward. 19. Support your weight on both the cane and your weaker side. 20. Step with your stronger leg. 21. Start again from step 1. If youre using a folding walker, be sure you know how to lock it open. Check that its locked open before each use. Using a Walker 7. Roll the walker (or lift it, if youre using one without wheels) forward about 12 inches. 8. Step forward with your weaker leg first. 9. Use the walker to help keep your balance. 10. Bring your other foot forward to the center of the walker. 11. Start again from step 1. Helpful Tips Check with your healthcare provider about the right walking aid to use. Ask about a walker with a seat attached. Check the tips of your cane or walker to make sure they have nonskid covers. Move slowly from room to room. Dont chang. Sit down to get dressed. Use a aric pack or backpack to keep your hands free. Get help for jobs that mean climbing, even on a stepstool. Charlieashli Patient Education Copyright 2008 - 2010 Misty except where otherwise noted. Treating Urinary Incontinence in Men (This education is for all patients over 65 regardless of symptoms) You can't always control the release of urine. You may leak urine. Or you may not be able to hold your urine until you can get to a bathroom. This is called urinary incontinence. The problem can be managed. Talk to your doctor about your treatment options. Taking Medications Prescription medications may help you. They may: Help the sphincter to work better. (This is the muscle that closes to keep urine from leaking out of the bladder.) Help stop the bladder from alex too often to push urine out. Help the bladder muscles contract with more force. Help relax the sphincter muscle and allow urine to flow more freely. Making Changes to Your Routine Certain changes in your daily routine may help. These include: Avoiding caffeine and alcohol. Using timed voiding. This is following a schedule for drinking fluids and urinating. Doing Kegel exercises daily. These exercises involve tightening the muscles in your sphincter and around your bladder to help strengthen them. Your doctor can explain how to do them. Using a Catheter A catheter is a narrow tube that is inserted through the urethra into the bladder. It drains urine.A condom catheter covers the penis. It channels urine into a collection bag. It is worn most of thetime. Intermittent catheterization means inserting a catheter to drain the bladder, then removing it. This is done on a regular schedule. Having Surgery If other options don't work, surgery may be recommended. If surgery is an option, your healthcare provider can discuss it with you and explain its risks and benefits. Healing After Prostate Surgery Surgery on the prostate gland can cause incontinence. Most often, the incontinence is only for a short time. It clears up when healing is complete. Very rarely, prostate surgery can result in permanent incontinence. Hi Mr. Padilla, As your primary care physician, I know that regular visits with my patients who have several chronic conditions can go a long way in helping you stay healthy. Many times, the clinic team and I are in touch with you and/or other care team members between office visits to adjust medications, discuss any changes in your health, and review our care plan to make sure it is still meeting your needs. I am dedicated to helping you take a more active role in your overall care. It is important that there are resources available to you, so I created a personalized plan of care with a Health Calendar for you, which is included on the next page of this letter. Below is a list that summarizes your electronic health record: Health Maintenance Due: Health Maintenance Due Topic Date Due COVID-19 Vaccine (5 - Pfizer series) 05/31/2022 Depression Screening, Annual for Pts 12 and Over 04/27/2023 Albumin/Creatinine Ratio 07/11/2023 Current Medication List: (as of Visit date not found (in office), Visit date not found (telemedicine) ) Current Outpatient Medications Medication Sig Dispense Refill Aspirin EC 81 MG Oral Tablet Delayed [...] into both eyes at bedtime. 3 mL0 Boost Oral Liquid Take by mouth 2 times a day . Use 3-4 times daily when not able to eat due totooth extraction recently Furosemide 40 MG Oral Tablet (Lasix) Take [...] and 1 Tablet beforebedtime. 180 Tablet 1 Ferrous Sulfate 325 (65 Fe) MG Oral Tablet (Feosol) TAKE 1 TABLET (325 MG) DAILY WITH BREAKFASTBY MOUTH. 90 Tablet 0 B-12 1000 MCG Oral Tablet Take 1 tablet by mouth daily 90 Tablet 3 metFORMIN HCl ER 500 MG Oral Tablet Extended Release 24 Hour (Glucophage XR) Take 1 Tablet by mouth in the morning. 30 Tablet 11 Vitron-C 65-125 MG Oral Tablet (Iron-Vitamin C 65-125 mg per tab) Take 1 Tablet by mouth once aday on Sunday, Sunday, and Sunday only. 40 Tablet 3 Potassium Chloride ER 10 MEQ Oral Capsule Extended Release One tablet in the morning 90 Capsule1 Folic Acid 1 MG Oral Tablet TAKE 1 TABLET BY MOUTH EVERY DAY IN THE MORNING 90 Tablet 1 Atorvastatin Calcium 40 MG Oral Tablet (Lipitor) TAKE 1 TABLET BY MOUTH EVERYDAY AT BEDTIME 90 Tablet 1 Carvedilol 3.125 MG Oral Tablet (Coreg) Take 1 Tablet by mouth 2 times a day with morning and evening meals. 180 Tablet 1 Acetaminophen 325 MG Oral Tablet (Tylenol) Take 2 Tablets by mouth every 4 hours as needed for Fever >38C(100.5F) or Pain, Breakthrough. 100 Tablet 0 Nitroglycerin 0.4 MG Sublingual Tablet Sublingual (Nitrostat) Place 1 Tablet under the tongue every 5 minutes as needed for Pain, Chest. 25 Tablet 1 Sennosides-Docusate Sodium 8.6-50 MG Oral Tablet (Senna S) Take 1 Tablet by mouth in the morning. 90 Tablet 1 Isosorbide Mononitrate ER 30 MG Oral Tablet Extended Release 24 Hour (Imdur) Take 0.5 Tablets by mouth in the morning. 90 Tablet 1 No current facility-administered medications for this visit. Current List of Allergies: (as of Visit date not found (in office), Visit date not found (telemedicine) ) Review of patient's allergies indicates: No Known Allergies Most Recent Lab Results: Results for orders placed or performed in visit on 01/12/23 RENAL FUNCTION PANEL Result Value Ref Range BUN 27 (H) 6 - 20 mg/dL Creatinine 1.2 0.6 - 1.2 mg/dL Estimated Glomerular Filtration Rate 59 (L) >=60 mL/min Sodium 139 135 - 146 mmol/L Potassium 4.5 3.5 - 5.1 mmol/L Chloride 103 98 - 107 mmol/L CO2 26 22 - 32 mmol/L Anion Gap 10 7 - 15 mmol/L Glucose 230 (H) 70 - 120 mg/dL Calcium 8.9 8.4 - 10.2 mg/dL Albumin 4.1 3.8 - 5.0 g/dL Phosphorus 3.8 2.5 - 4.8 mg/dL HEMOGLOBIN A1C Result Value Ref Range Hemoglobin A1C 7.0 (H) 4.0 - 5.6 % Estimated Average Glucose 154 (H) <126 mg/dL CBC Result Value Ref Range WBC 6.49 4.00 - 10.80 K/uL RBC 3.34 4.50 - 5.25 M/uL HGB 10.7 (L) 14.0 - 16.8 g/dL HCT 34.1 (L) 40.0 - 48.4 % MCV 102.1 82.0 - 99.5 fL MCH 32.0 27.0 - 34.0 pg MCHC 31.4 32.0 - 36.0 g/dL RDW 13.8 11.5 - 15.5 % PLT 213 140 - 400 K/uL MPV 10.4 6.6 - 11.1 fL nRBCs 0 <=0 /100 WBCs Sincerely, Jaelyn Andujar MD 04/30/2023 [facility] Calendar (as of Visit date not found (in office), Visit date not found (telemedicine) ) Care needs Care needs Last completed Due next COVID-19 Vaccine (5 - Pfizer series) 04/05/2022 05/31/2022 Urine albumin/creatinine test 07/11/2022 07/11/2023 Flu vaccine (recommended) (1) 07/11/2022 06/29/2023 A1C blood sugar test 01/12/2023 07/15/2023 Diphtheria, tetanus & pertussis vaccines (2 - Td or Tdap) 08/23/2020 08/23/2030 As you look over the recommended services, be sure to check with your insurance company to determine what's covered. [employer] is a great tool that helps you review your medical record online, including test results, doctor notes and your health summary. You can also schedule appointments with me and other members of your care team, request prescription refills and ask for advice related to your medical conditions at [email or web address]. Hi Mr. Padilla, As your primary care physician, I know that regular visits with my patients who have several chronic conditions can go a long way in helping you stay healthy. Many times, the clinic team and I are in touch with you and/or other care team members between office visits to adjust medications, discuss any changes in your health, and review our care plan to make sure it is still meeting your needs. I am dedicated to helping you take a more active role in your overall care. It is important that there are resources available to you, so I created a personalized plan of care with a Health Calendar for you, which is included on the next page of this letter. Below is a list that summarizes your electronic health record: Health Maintenance Due: Health Maintenance Due Topic Date Due COVID-19 Vaccine (5 - Pfizer series) 05/31/2022 Depression Screening, Annual for Pts 12 and Over 04/27/2023 Albumin/Creatinine Ratio 07/11/2023 Current Medication List: (as of Visit date not found (in office), Visit date not found (telemedicine) ) Current Outpatient Medications Medication Sig Dispense Refill Aspirin EC 81 MG Oral Tablet Delayed [...] into both eyes at bedtime. 3 mL0 Boost Oral Liquid Take by mouth 2 times a day . Use 3-4 times daily when not able to eat due totooth extraction recently Furosemide 40 MG Oral Tablet (Lasix) Take [...] and 1 Tablet beforebedtime. 180 Tablet 1 Ferrous Sulfate 325 (65 Fe) MG Oral Tablet (Feosol) TAKE 1 TABLET (325 MG) DAILY WITH BREAKFASTBY MOUTH. 90 Tablet 0 B-12 1000 MCG Oral Tablet Take 1 tablet by mouth daily 90 Tablet 3 metFORMIN HCl ER 500 MG Oral Tablet Extended Release 24 Hour (Glucophage XR) Take 1 Tablet by mouth in the morning. 30 Tablet 11 Vitron-C 65-125 MG Oral Tablet (Iron-Vitamin C 65-125 mg per tab) Take 1 Tablet by mouth once aday on Sunday, Sunday, and Sunday only. 40 Tablet 3 Potassium Chloride ER 10 MEQ Oral Capsule Extended Release One tablet in the morning 90 Capsule1 Folic Acid 1 MG Oral Tablet TAKE 1 TABLET BY MOUTH EVERY DAY IN THE MORNING 90 Tablet 1 Atorvastatin Calcium 40 MG Oral Tablet (Lipitor) TAKE 1 TABLET BY MOUTH EVERYDAY AT BEDTIME 90 Tablet 1 Carvedilol 3.125 MG Oral Tablet (Coreg) Take 1 Tablet by mouth 2 times a day with morning and evening meals. 180 Tablet 1 Acetaminophen 325 MG Oral Tablet (Tylenol) Take 2 Tablets by mouth every 4 hours as needed for Fever >38C(100.5F) or Pain, Breakthrough. 100 Tablet 0 Nitroglycerin 0.4 MG Sublingual Tablet Sublingual (Nitrostat) Place 1 Tablet under the tongue every 5 minutes as needed for Pain, Chest. 25 Tablet 1 Sennosides-Docusate Sodium 8.6-50 MG Oral Tablet (Senna S) Take 1 Tablet by mouth in the morning. 90 Tablet 1 Isosorbide Mononitrate ER 30 MG Oral Tablet Extended Release 24 Hour (Imdur) Take 0.5 Tablets by mouth in the morning. 90 Tablet 1 No current facility-administered medications for this visit. Current List of Allergies: (as of Visit date not found (in office), Visit date not found (telemedicine) ) Review of patient's allergies indicates: No Known Allergies Most Recent Lab Results: Results for orders placed or performed in visit on 01/12/23 RENAL FUNCTION PANEL Result Value Ref Range BUN 27 (H) 6 - 20 mg/dL Creatinine 1.2 0.6 - 1.2 mg/dL Estimated Glomerular Filtration Rate 59 (L) >=60 mL/min Sodium 139 135 - 146 mmol/L Potassium 4.5 3.5 - 5.1 mmol/L Chloride 103 98 - 107 mmol/L CO2 26 22 - 32 mmol/L Anion Gap 10 7 - 15 mmol/L Glucose 230 (H) 70 - 120 mg/dL Calcium 8.9 8.4 - 10.2 mg/dL Albumin 4.1 3.8 - 5.0 g/dL Phosphorus 3.8 2.5 - 4.8 mg/dL HEMOGLOBIN A1C Result Value Ref Range Hemoglobin A1C 7.0 (H) 4.0 - 5.6 % Estimated Average Glucose 154 (H) <126 mg/dL CBC Result Value Ref Range WBC 6.49 4.00 - 10.80 K/uL RBC 3.34 4.50 - 5.25 M/uL HGB 10.7 (L) 14.0 - 16.8 g/dL HCT 34.1 (L) 40.0 - 48.4 % MCV 102.1 82.0 - 99.5 fL MCH 32.0 27.0 - 34.0 pg MCHC 31.4 32.0 - 36.0 g/dL RDW 13.8 11.5 - 15.5 % PLT 213 140 - 400 K/uL MPV 10.4 6.6 - 11.1 fL nRBCs 0 <=0 /100 WBCs Sincerely, Jaelyn Andujar MD 04/30/2023 [facility] Calendar (as of Visit date not found (in office), Visit date not found (telemedicine) ) Care needs Care needs Last completed Due next COVID-19 Vaccine (5 - Pfizer series) 04/05/2022 05/31/2022 Urine albumin/creatinine test 07/11/2022 07/11/2023 Flu vaccine (recommended) (1) 07/11/2022 06/29/2023 A1C blood sugar test 01/12/2023 07/15/2023 Diphtheria, tetanus & pertussis vaccines (2 - Td or Tdap) 08/23/2020 08/23/2030 As you look over the recommended services, be sure to check with your insurance company to determine what's covered. [employer] is a great tool that helps you review your medical record online, including test results, doctor notes and your health summary. You can also schedule appointments with me and other members of your care team, request prescription refills and ask for advice related to your medical conditions at [email or web address]. documented in this encounter Progress Notes * Johnna Bauer RN - 04/30/2023 2:05 PM EDT Fall Risk Plan of Care Documentation: - Current medications reconciled Patient encouraged to: - Exercise - Provide education materials for Core strengthening - Utilize assistive/adaptive devices - Provide education materials - Avoid multifocal lenses when walking - Avoid hazards in home - Provide education materials - Maintain a regular toileting schedule Johnna Bauer RN 04/30/2023 Adult Annual Wellness Visit: Delio Padilla is a 88 year old male who presents for an Adult Annual Wellness Visit. Depression Screening: Did the patient complete the screening questionnaire for Depression? Yes Is the patient's total score for Depression 15 or greater? No, no further intervention needed, unless requested by patient. Did the patient answer positively to the suicide question? No, no further intervention needed, unless requested by patient. In general, compared to other people your age, what would you say that your health is? Fair Ht Readings from Last 1 Encounters: 04/30/23 1.727 m (5' 8") Wt Readings from Last 1 Encounters: 04/30/23 71.2 kg (157 lb) Body Mass Index: BMI Less than 30 Body mass index is 23.87 kg/m. BP Readings from Last 1 Encounters: 04/30/23 126/80 Medical/Surgical/Family History Reviewed: Yes Past Medical History: Diagnosis Date Aortic stenosis [...] [facility] (RECTUM) 09/10/2019 normal / COLONOSCOPY FLEXIBLE PROXIMAL DIAGNOSTIC performed by Filipe Hankins MD at ENDOSCOPY [facility] EGD, FLEXIBLE, DIAGNOSTIC 07/21/2021 hiatal hernia / [facility] TOTAL HIP REPLACEMENT & PROSTHESIS Left 10/07/2021 Dr. Davila--left hip fracture Family History Problem Relation Age of Onset Heart Disorder Mother Heart disease Mother Cancer Father prostate Prostate cancer Father Has patient ever had cancer? No Social History Tobacco Use Smoking status: Former Packs/day: 5.00 Years: 3.00 Pack years: 15.00 Types: Pipe, Cigarettes Quit date: 2019 Years since quittin.5 Smokeless tobacco: Never Tobacco comments: Rarely smokes a pipe, infrequent Substance Use Topics Alcohol use: Yes Comment: rare Vaping/E-Cigarette Use Vaping/E-Cigarette Use Never User Vaping/E-Cigarette Substances Vaping/E-Cigarette Devices Tobacco/Alcohol screening completed today? Yes Hospital Care: Admissions (within the last year): Not Applicable ER within 30 days: No Does the patient have an Advance Directives/Living Will? Yes Last Physical Exam: Last physical exam: Does patient see primary provider regularly? Yes Does patient see other providers? Yes, Specialist Patient Care Team updated? Yes Review of patient's allergies indicates: No Known Allergies Immunization History Administered Date(s) Administered COVID-19 mRNA, LNP-s, No Preserve, 2-Dose Series ([employer]) 11/21/2020, 12/12/2020, 08/05/2021 COVID-19, LNP-s, No Preserve, Rashawn-sucrose, Ages 12+ (Pfizer) 04/05/2022 Pneumococcal Conjugate Vacc, 13 Valent (Prevnar) 08/20/2019 Pneumococcal Polysaccharide PPV23 (Pneumovax) 08/23/2020 Seasonal Influenza Virus Vaccine, Unspecified Formulation 08/20/2019 Seasonal Influenza, Quadrivalent Hd (Fluzone Hd) 09/09/2021, 07/11/2022 Seasonal Influenza, Quadrivalent, No Preserve, Adjuvanted, 65+ Yrs, IM 07/10/2020 Seasonal Influenza, Trivalent, Adjuvanted, 65+ yrs 08/20/2019 TDAP (age 10 and older)(Boostrix) 08/23/2020 Zoster Vaccine Recombinant (Shingrix) 08/08/2020, 04/22/2021 Current Outpatient Medications Medication Sig Dispense Refill Aspirin EC 81 MG Oral Tablet Delayed [...] into both eyes at bedtime. 3 mL0 Boost Oral Liquid Take by mouth 2 times a day . Use 3-4 times daily when not able to eat due totooth extraction recently Furosemide 40 MG Oral Tablet (Lasix) Take [...] and 1 Tablet beforebedtime. 180 Tablet 1 Ferrous Sulfate 325 (65 Fe) MG Oral Tablet (Feosol) TAKE 1 TABLET (325 MG) DAILY WITH BREAKFASTBY MOUTH. 90 Tablet 0 B-12 1000 MCG Oral Tablet Take 1 tablet by mouth daily 90 Tablet 3 metFORMIN HCl ER 500 MG Oral Tablet Extended Release 24 Hour (Glucophage XR) Take 1 Tablet by mouth in the morning. 30 Tablet 11 Vitron-C 65-125 MG Oral Tablet (Iron-Vitamin C 65-125 mg per tab) Take 1 Tablet by mouth once aday on Sunday, Sunday, and Sunday only. 40 Tablet 3 Potassium Chloride ER 10 MEQ Oral Capsule Extended Release One tablet in the morning 90 Capsule1 Folic Acid 1 MG Oral Tablet TAKE 1 TABLET BY MOUTH EVERY DAY IN THE MORNING 90 Tablet 1 Atorvastatin Calcium 40 MG Oral Tablet (Lipitor) TAKE 1 TABLET BY MOUTH EVERYDAY AT BEDTIME 90 Tablet 1 Carvedilol 3.125 MG Oral Tablet (Coreg) Take 1 Tablet by mouth 2 times a day with morning and evening meals. 180 Tablet 1 Acetaminophen 325 MG Oral Tablet (Tylenol) Take 2 Tablets by mouth every 4 hours as needed for Fever >38C(100.5F) or Pain, Breakthrough. 100 Tablet 0 Nitroglycerin 0.4 MG Sublingual Tablet Sublingual (Nitrostat) Place 1 Tablet under the tongue every 5 minutes as needed for Pain, Chest. 25 Tablet 1 Sennosides-Docusate Sodium 8.6-50 MG Oral Tablet (Senna S) Take 1 Tablet by mouth in the morning. 90 Tablet 1 Isosorbide Mononitrate ER 30 MG Oral Tablet Extended Release 24 Hour (Imdur) Take 0.5 Tablets by mouth in the morning. 90 Tablet 1 No current facility-administered medications for this visit. 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 Yes Patient takes medications as prescribed? Yes Patient manages own medications: No Patient uses a pill box? Yes, refill(s) completed by brother in law Dental Exam: Not Applicable full Eye Screening: Yes: Every yearly Are you having trouble with hearing? No Do you use an assistive device to help your hearing? No Exercise Screening: does not exercise regularly Nutrition Assessment: three meals a day, and ladies bring meals, meals on wheels. Twice on the weekend Pain Screening: Are you having any pain? No Sleep Screening Tool 'STOP': 1. Do you snore? No 2. Do you feel fatigued during the day? No 3. Do you wake up feeling like you haven't slept? Yes 4. Have you been told you stop breathing at night? No 5. Do you gasp for air or choke while sleeping? No 6. Have you been told you have Sleep Apnea? No 7. Do you have high blood pressure or are on medication(s) to control high blood pressure? Yes SCORE: If you check YES to two or more questions, make a referral for Obstructive Sleep Apnea No concerns Patient and Caregiver Support System: Patient lives alone Means of Transportation: Family transports Patient [facility], [facility] Community Resources: Meals on Wheels Functional Status and ADL Skills: Has patient ever had an amputation? No Functional Assessment: 90- Able to carry on normal activity, minor symptoms of disease Ambulation: Patient ambulates with assistive device. Walker Dressing: Gets clothes and dresses without any assistance: Independent Able to move freely in chair or bed including turning over: Independent Repositioning (bed or chair): Not applicable Transfers: Independent Toileting: Goes to bathroom, uses toilet, arranges clothes and returns without any assistance: Independent Toileting: continent of bladder and continent of bowel Feeding: Self Bathing: Self; Shower Chair, walk in and grab bars Requires minimal assistance with ADLs. Instrumental ADL's: Shopping: Minimal Assistance Housekeeping: Minimal Assistance Handling Finances: Minimal Assistance DME Vendor Name: Not Applicable Fall Risk Assessment: Can the patient demonstrate that he can stand from a sitting position? Yes Has the patient had a fall within the last 6 months? Yes Does the patient have a problem with his gait or balance? Yes Does the patient take 4 or more prescription medicines? Yes Does the patient use sedatives or narcotics? No Fall Risk Factors Present: Uses more than 4 medications Uses assistive devices Balance or gait disturbances Lower extremity weakness Visually impaired Older than age 70 Fnh-Ss-tab-Go Test: Time began at 200. Patient stood from sitting position and walked approximately 10 feet, returned and sat down. Total time for ajx-rx-hdx-go test was 11 seconds. Tuw-Fr-udu-Go Test completed? Yes Gender Specific Preventative Plan: Health Maintenance Topic Date Due COVID-19 Vaccine (5 - Pfizer series) 05/31/2022 Depression Screening, Annual for Pts 12 and Over 04/27/2023 Albumin/Creatinine Ratio 07/11/2023 Influenza Vaccine (FLU shot) (1) 06/29/2023 HbA1c 07/15/2023 CKD HGB USE SMARTSET 30373 01/13/2024 CKD PHOS USE SMARTSET 84742 01/13/2024 DTaP,Tdap,and Td Vaccines (2 - Td or Tdap) 08/23/2030 Zoster Vaccines Completed Pneumococcal Vaccine: 65+ Years Completed Hepatitis B Aged Out MENINGOCOCCAL (MENACTRA/MENVEO) Aged Out GARDASIL-HPV IMMUNIZATION SERIES Aged Out Follow Up/ Referrals/Handouts: Depression screening - completed, 2 sons don't speak to him for years Functional assessment - doing ok, pt has to use the walker all the time Falls Risk screening - discussed and encouraged to use walker Exercise screening - If poor exercise habits, provide exercise handouts Nutrition assessment -. Education Provided Pain screening - none Incontinence screening - no concerns Patient has been verbally educated on the need or importance of Cholesterol, Hemoglobin A1c and Immunizations: flu,covid,shingles Pt has completed the covid vaccines: No, declined bivalent, will wait for the fall to discuss with pcp Risk and functional assessment (Primary) Routine general medical examination at a health care facility Non-healing skin lesion - DERMATOLOGY REFERRAL OP Aortic stenosis - Med reconciliation completed and compliance discussed. - pt to continue present medications. B12 deficiency - Med reconciliation completed and compliance discussed. - pt to continue present medications. 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 - pt to continue present medications. Pt fell into the closest and hit eye on a broom handle a couple weeks ago and lost vision in his good eye for a few days, no complaints today Cardiac pacemaker in situ -pt does follow up with cardiology Chronic kidney disease, stage 3b (HCC) Component Latest Ref Rng 01/12/2023 BUN 6 - 20 mg/dL 27 (H) Creatinine 0.6 - 1.2 mg/dL 1.2 Estimated Glomerular Filtration Rate >=60 mL/min 59 (L) (H) High (L) Low Persistent atrial fibrillation (HCC) - Med reconciliation completed and compliance discussed. - pt to continue present medications. Type 2 diabetes mellitus with stage 3b chronic kidney disease (HCC) - Med reconciliation completed and compliance discussed. - pt to continue present medications. Follow Up: Return in 1 year (on 04/30/2024) for 12 month Subsequent Adult Wellness Visit. | For: 12 month Subsequent Adult Wellness Visit | Check-out note: 12 month Subsequent Adult Wellness Visit Would patient like to schedule next AWV visit? Yes Johnna Bauer RN AD8 Dementia Screening Interview Person answering questions: patient Remember, "Yes, a change" indicates that there has been a change in the last several years caused by cognitive (thinking and memory) problems 1. Problems with judgement (eg: problems making decisions, bad financial decisions, problems with thinking). No (0) 2. Less interest in hobbies/activities. No (0) 3. Repeats the same things over and over (questions, stories, or statements). No (0) 4. Trouble learning how to use a tool, appliance, or gadget (eg: VCR, computer, microwave, remote control). No (0) 5. Forgets correct month or year. No (0) 6. Trouble handling complicated financial affairs (eg: balancing checkbook, income taxes, paying bills). N/A 7. Trouble remembering appointments. N/A 8. Daily problems with thinking and/or memory. Yes (1) TOTAL AD8: 1 - AD8 Dementia Screening Score Johnna Bauer RN documented in this encounter Plan of Treatment Upcoming Encounters Date Type Specialty Care Team Description 06/19/2023 Cardiac Studies [facility] [address] [place] [address] 07/18/2023 Office Visit Family Medicine Jaelyn Pemberton MD [address] [place] [address] [place] [phone] 08/02/2023 Office Visit Cardiology Shorty Rich DO [address] [place] [address] 09/26/2023 Office Visit Urology Vitaliy Maria MD [address] [facility] [address] [place] [address] 12/17/2023 Office Visit Dermatology Keira De Jesus PA-C [address] [place] [address] [place] [address] 05/02/2024 Nurse Only Ancillary Paolo, Nurse Annual [facility] [address] [place] [address] [place] [phone] Scheduled Referrals Name Type Priority Associated Diagnoses Orde r Schedule DERMATOLOGY REFERRAL OP Referral Within 30 days (routine) Non-healing skin lesion Ordered: 04/30/2023 Health Maintenance Due Date Last Done Comments COVID-19 Vaccine (5 - Pfizer series) 05/31/2022 04/05/2022, 08/05/2021, 12/12/2020, Additional history exists Depression Screening, Annual for Pts 12 and Over 04/27/2023 04/27/2022 Influenza Vaccine (FLU shot) (#1) 2023 07/11/2022, 09/09/2021, 07/10/2020, Additional history exists Albumin/Creatinine Ratio 07/11/2023 07/11/2022, 08/30 HbA1c 07/15/2023 01/12/2023, 09/0 04/2022, 11/22/2021, Additional history exists CKD HGB USE SMARTSET 13203 01/13/202401/12, 12/30/2021, 12/30/2021, Additional history exists CKD PHOS USE SMARTSET 96203 01/13/2024 01/12/2023, 0 05/04/2021 DTaP,Tdap,and Td Vaccines [...] as of this encounter Visit Diagnoses Diagnosis Risk and functional assessment- Primary Screening for unspecified condition Routine general medical examination at a health care facility Non-healing skin lesion Unspecified disorder of skin and subcutaneous tissue Aortic stenosis Aortic valve disorders B12 deficiency Other B-complex deficiencies Balance disorder Other symptoms involving nervous and musculoskeletal systems 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 Profound, moderate or severe vision impairment, not further specified Cardiac pacemaker in situ Chronic kidney disease, stage 3b (HCC) Persistent atrial fibrillation (HCC) Atrial fibrillation Type 2 diabetes mellitus with stage 3b chronic kidney disease (HCC) documented in this encounter Advance Directives Documents on File Type Date Recorded 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
--- OUTSIDE RECORDS SUMMARY | 2023-09-23 21:09 | External Medical Summary | Summary of Care ---
Author Name Unknown Organization [facility] Address [address] [place] [address] Phone [phone] Care Team Providers Care Toy Maker Name Role Phone Jaelyn Contreras MD Primary Care Prov ider Reason for Visit * Reason Onset Date Comments Medication Refill 05/07/2023 Encounter Details Date Type Department Care Team Description 05/07/2023 Refill Family [address] [phone] Jaelyn Contreras MD [address] [place] [address] [place] [address] Allergies No known active allergiesdocumented as of this encounter (statuses as of 05/08/2023) Medications Medication Sig Dispensed Refills Start Date [...] NYHA class 2 (HCC),Coronary artery disease involving [place] coronary artery of [place] heart without angina pectoris TAKE 1/2 TAB BY MOUTH IN THE MORNING *HOLD IF BLOOD PRESSURE IS LESS THAN 110/70 45 Tablet 1 12/18/2022 Active Sertraline HCl 25 MG Oral Tablet (Zoloft) Take 1 Tablet by mouth in the morning. 90 Tablet 1 12/19/2022 Active Apixaban 2.5 MG Oral Tablet (Eliquis)Indication s:Coronary artery disease involving [place] coronary artery of [place] heart without angina pectoris Take 1 Tablet [...] 03/05/2023 Active Folic Acid 1 MG Oral TabletIndications:A [...] (blood pressure) < 140/90,Coronary artery disease involving [place] coronary artery of [place] heart without angina pectoris Take 1 Tablet [...] the morning. 90 Tablet 3 05/08/2023 Active metFORMIN HCl ER 500 MG Oral Tablet Extended Release 24 Hour (Glucophage XR) Take 1 Tablet by mouth in the morning. 30 Tablet 11 02/12/2023 3 Discontinue d(Refill) documented as of this encounter (statuses as of 05/08/2023) Active Problems Problem Noted Date S/P total [...] stenosis Hyperlipidemia Coronary artery disease invo lving [place] coronary artery of [place] heart without angina pectoris Aortic stenosis documented as of this encounter (statuses as of 05/08/2023) Resolved Problems Problem Noted Date Resolved Date [...] as of this encounter (statuses as of 05/08/2023) Immunizations Name Administration Dates Next Due COVID-19 mRNA, LNP-s, No Pre serve, 2-Dose Series ([employer]) 08/05/2021,12/12/2020,11/21/2020 COVID-19, LNP-s, No Preserve , Rashawn-sucrose, [...] encounter Miscellaneous Notes * Telephone Encounter - Jaelyn Haney MD - 05/08/2023 1:02 PM EDT Signed Prescriptions: Disp Refills metFORMIN HCl ER 500 MG Oral Tablet Extend*90 Tab*3 Sig: Take 1 Tablet by mouth in the morning. Authorizing Provider: JAELYN CONTRERAS * Telephone Encounter - Lilia Martins RN - 05/07/2023 1:36 PM EDTPending Prescriptions: Disp Refills metFORMIN HCl ER 500 MG Oral Tablet Extend*90 Tab*3 Sig: Take 1 Tablet by mouth in the morning. * Telephone Encounter - Lenore Mriza - 05/07/2023 1:08 PM EDT Did you pend patient's preferred pharmacy and medication before forwarding?yes Pharmacy: [id number] Pending Prescriptions: Disp Refills metFORMIN HCl ER 500 MG Oral Tablet Exten*30 Tab*11 Sig: Take 1 Tablet by mouth in the morning. Last Visit: 01/12/2023 (in office), Visit date not found (telemedicine) Next Visit: 07/18/2023 If no future appointments scheduled, and last appointment is greater than a year ago, please schedule patient for a follow-up appointment Last date the medication was ordered: 02/12/2023 90 DAY SUPPLY PER [facility] Is this request for a controlled substance?No Urine Drug Screen:No results found for this or any previous visit. Patient Phone Numbers Labs: Lab Results Component Value Date/Time CREAT 1.2 01/12/2023 02:45 PM CREAT 1.66 (A) 10/05/2021 12:00 AM CREAT 1.3 (H) 08/10/2020 02:34 PM POTASSIUM 4.5 01/12/2023 02:45 PM POTASSIUM 5.1 10/05/2021 12:00 AM POTASSIUM 5.0 08/10/2020 02:34 PM TSH 2.11 11/22/2021 11:25 AM TSH 0.979 10/05/2021 12:00 AM TSH 1.79 08/20/2019 04:24 PM LDLCALC 68 06/23/2021 02:37 PM LDLCALC 156 (H) 08/20/2019 04:24 PM LDLDIRECT 51 07/05/2022 11:25 AM LDLDIRECT 77 03/31/2020 01:13 PM ALT 7 (L) 03/31/2020 01:13 PM HGBA1C 7.0 (H) 01/12/2023 02:45 PM HGBA1C 6.9 (H) 03/31/2020 01:13 PM documented in this encounter Plan of Treatment Upcoming Encounters Date Type Specialty Care Team Description 06/19/2023 Cardiac Studies Cardiology [facility] [address] [place] [address] 07/18/2023 Office Visit Family Medicine Jaelyn Contreras MD [address] [place] [address] [place] [phone] 08/02/2023 Office Visit Cardiology Shorty Rich DO [address] [place] [address] 09/26/2023 Office Visit Urology Vitaliy Maria MD [address] [place] [address] 12/17/2023 Office Visit Dermatology Keira De Jesus PA-C [address] [place] [address] [place] [phone] 05/02/2024 Nurse Only Ancillary Nurse Paolo Annual [address] [place] [address] Health Maintenance Due Date Last Done Comments COVID-19 Vaccine (5 - Pfizer series) 05/31/2022 04/05/2022, 08/05/2021, 12/12/2020, Additional history exists Influenza Vaccine (FLU shot) (#1) 2023 07/11/2022, 09/09/2021, 07/10/2020, Additional history exists Albumin/Creatinine Ratio 07/11/2023 07/11/2022, /2 04/2019 HbA1c 07/15/2023 01/12/2023, 09/0 04/2022, 11/22/2021, Additional history exists CKD HGB USE SMARTSET 59068 01/13/202401/12, 12/30/2021, 12/30/2021, Additional history exists CKD PHOS USE SMARTSET 97521 01/13/2024 01/12/2023, 0 05/04/2021 Depression Screening, Annual [...] Documents on File Type Date Recorded Patient Diorama Model Maker Expl anation Power of [place] Commissioner 01/13/2019 POWER OF A TTORNEY Healthcare Agents on File Name Relationship Healthcare Agent Relationship Communication Ian Henriquez Other - (no specific identity) Health Care Agent (per Health Care Power of U.[place]. Commissioner document) Care Teams Toy Maker Relationship Specialty Start Date End Date Jaelyn Contreras MD [address] [place] [address] [place] [address] PCP - General Family Medicine 08/20/19 documented as of this encounter
--- OUTSIDE RECORDS SUMMARY | 2023-09-23 21:09 | External Medical Summary | Summary of Care ---
Author Name Unknown Organization [facility] Address [address] [place] [address] Phone [phone] Care Team Providers Care Loan Representative Name Role Phone Jaelyn Pemberton MD Primary Care Prov ider Reason for Visit * Reason Onset Date Comments Medication Refill 05/28/2023 Encounter Details Date Type Department Care Team Description 05/28/2023 Refill [facility] [address] [place] [address] Thao Fernandez PA-C [address] [place] [address] Allergies No known active allergiesdocumented as of this encounter (statuses as of 05/28/2023) Medications Medication Sig Dispensed Refills Start Date [...] NYHA class 2 (HCC),Coronary artery disease involving [place] coronary artery of [place] heart without angina pectoris TAKE 1/2 TAB BY MOUTH IN THE MORNING *HOLD IF BLOOD PRESSURE IS LESS THAN 110/70 45 Tablet 1 3 Active Sertraline HCl 25 MG Oral Tablet (Zoloft) Take 1 Tablet by mouth in the morning. 90 Tablet 1 3 Active Apixaban 2.5 MG Oral Tablet (Eliquis)Mortio ns:Coronary artery disease involving [place] coronary artery of [place] heart without angina pectoris Take 1 Tablet [...] (blood pressure) < 140/90,Coronary artery disease involving [place] coronary artery of [place] heart without angina pectoris Take 1 Tablet [...] Pain, Severe. 60 Tablet 0 3 Active Boost Oral Liquid Take by mouth 2 times a day . Use 3-4 times daily when not able to eat due to tooth extraction recently 0 2 05/28/20 23 Discontinued(Ok dication List Clean Up) Isosorbide Mononitrate ER [...] as of this encounter (statuses as of 05/28/2023) Active Problems Problem Noted Date S/P total [...] stenosis Hyperlipidemia Coronary artery disease invo lving [place] coronary artery of [place] heart without angina pectoris Aortic stenosis documented as of this encounter (statuses as of 05/28/2023) Resolved Problems Problem Noted Date Resolved Date [...] as of this encounter (statuses as of 05/28/2023) Immunizations Name Administration Dates Next Due COVID-19 mRNA, LNP-s, No Pre serve, 2-Dose Series ([facility]) 08/05/2021,12/12/2020,11/21/2020 COVID-19, LNP-s, No Preserve , Rashawn-sucrose, [...] encounter Miscellaneous Notes * Telephone Encounter - Thao Fernandez PA-C - 05/28/2023 3:26 PM EDT RX TRAMADOL 50MG Q SIX HOURS PRN MOD TO SEVERE PAIN #60 R0 SENT ELECTRONICALLY TO [facility] documented in this encounter Plan of Treatment Upcoming Encounters Date Type Specialty Care Team Description 05/29/2023 Snf Visit Family Medicine Thao Fernandez PA-C [address] [place] [address] 05/30/2023 Snf Visit Family Medicine Angel Coronel MD [address] [place] [address] [place] [address] 06/19/2023 Cardiac Studies Cardiology [facility] [address] [place] [address] 07/18/2023 Office Visit Family Medicine Jaelyn Pemberton MD [address] [place] [address] [place] [address] 08/02/2023 Office Visit Cardiology Shorty Rich DO [address] [place] [address] 09/26/2023 Office Visit Urology Vitaliy Maria MD [address] [place] [address] 12/17/2023 Office Visit Dermatology Keira De Jesus PA-C [address] [place] [address] [place] [phone] 05/02/2024 Nurse Only Ancillary Nurse [facility] [address] [place] [address] [place] [address] Health Maintenance Due Date Last Done Comments COVID-19 Vaccine (5 - Pfizer series) 05/31/2022 04/05/2022, 08/05/2021, 12/12/2020, Additional history exists Influenza Vaccine (FLU shot) (#1) 2023 07/11/2022, 09/09/2021, 07/10/2020, Additional history exists Albumin/Creatinine Ratio 07/11/2023 07/11/2022, 08/30 HbA1c 07/15/2023 01/12/2023, 09/0 04/2022, 11/22/2021, Additional history exists CKD PHOS USE SMARTSET 40798 01/13/2024 01/12/2023, 0 05/04/2021 Depression Screening, Annual for Pts 12 and Over 04/30/2024 04/30/2023 CKD HGB USE SMARTSET 69977 05/22/202405/22, 01/12/2023, 12/30/2021, Additional history exists DTaP,Tdap,and [...] Documents on File Type Date Recorded 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
--- OUTSIDE RECORDS SUMMARY | 2023-09-23 21:09 | External Medical Summary | Summary of Care ---
Author Name Unknown Organization [facility] Address [address] [place] [address] Phone [phone] Care Team Providers Care Home Care Assistant Name Role Phone Shante Contreras MD Primary Care Prov ider Reason for Visit * Reason Onset Date Comments Medication Refill 04/16/2023 Encounter Details Date Type Department Care Team Description 04/16/2023 Refill Family [address] [phone] Shante Contreras MD [address] [place], [place] [address] [address] Systolic CHF with reduced left ventricular function, NYHA class 2 (HCC); Hypertension goal BP (blood pressure) < 140/90; Coronary artery disease involving [place] coronary artery of [place] heart without angina pectoris Allergies No known active allergiesdocumented as of this encounter (statuses as of 04/16/2023) Medications Medication Sig Dispensed Refills Start Date [...] NYHA class 2 (HCC),Coronary artery disease involving [place] coronary artery of [place] heart without angina pectoris TAKE 1/2 TAB BY MOUTH IN THE MORNING *HOLD IF BLOOD PRESSURE IS LESS THAN 110/70 45 Tablet 1 12/18/2022 Active Sertraline HCl 25 MG Oral Tablet (Zoloft) Take 1 Tablet by mouth in the morning. 90 Tablet 1 12/19/2022 Active Apixaban 2.5 MG Oral Tablet (Eliquis)Indication s:Coronary artery disease involving [place] coronary artery of [place] heart without angina pectoris Take 1 Tablet [...] (blood pressure) < 140/90,Coronary artery disease involving [place] coronary artery of [place] heart without angina pectoris Take 1 Tablet by mouth 2 times a day with morning and evening meals. 180 Tablet 1 04/16/2023 Active Carvedilol 3.125 MG Oral Tablet (Coreg)Indications: Systolic CHF with reduced left ventricular function, NYHA class 2 (HCC),Hypertension goal BP (blood pressure) < 140/90,Coronary artery disease involving [place] coronary artery of [place] heart without angina pectoris Take 1 Tablet by mouth 2 times a day with morning and evening meals. 180 Tablet 1 11/01/2022 3 Discontinue d(Refill) Hospital, Clinic, or Other Facility Administered Medication Ordered Dose Route Frequency Start Date End Date Status vitamin b-12 (Cyanocobalamin) inj 1,000 mcgIndications:B12 deficiency 1000 mcg IM [id number] 01/12/2023 12/14/2023 Active documented as of this encounter (statuses as of 04/16/2023) Active Problems Problem Noted Date S/P total [...] stenosis Hyperlipidemia Coronary artery disease invo lving [place] coronary artery of [place] heart without angina pectoris Aortic stenosis documented as of this encounter (statuses as of 04/16/2023) Resolved Problems Problem Noted Date Resolved Date [...] as of this encounter (statuses as of 04/16/2023) Immunizations Name Administration Dates Next Due COVID-19 [...] encounter Miscellaneous Notes * Telephone Encounter - Shante Haney MD - 04/16/2023 4:10 PM EDT Signed Prescriptions: Disp Refills Carvedilol 3.125 MG Oral Tablet (Coreg) 180 Ta*1 Sig: Take 1 Tablet by mouth 2 times a day with morning and evening meals. Authorizing Provider: SHANTE CONTRERAS * Telephone Encounter - Lilia Martins RN - 04/16/2023 3:02 PM EDTPending Prescriptions: Disp Refills Carvedilol 3.125 MG Oral Tablet (Coreg) 180 Ta*1 Sig: Take 1 Tablet by mouth 2 times a day with morning and evening meals. * Telephone Encounter - Lilia Martins RN - 04/16/2023 3:01 PM EDT Pending Prescriptions: Disp Refills Carvedilol 3.125 MG Oral Tablet (Coreg) 180 Ta*1 Sig: Take 1 Tablet by mouth 2 times a day with morning and evening meals. 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 S/p left hip fracture Z87.81 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 episode ([facility]) F32.0 Persistent atrial fibrillation ([facility]) I48.19 Type 2 diabetes mellitus with stage 3b chronic kidney disease ([facility]) E11.22, N18.32 Chronic kidney disease, stage 3b ([facility]) N18.32 Labs: Lab Results Component Value Date/Time CREATININE - [facility] 1.2 01/12/2023 02:45 PM CREATININE - [facility] 1.3 (H) 08/10/2020 02:34 PM CREATININE, RANDOM URINE - [facility] 36 07/11/2022 12:33 PM CREATININE, RANDOM URINE - [facility] 109 09/24/2019 02:08 PM CREATININE-OU[facility]IDE [facility] 1.66 (A) 10/05/2021 12:00 AM Lab Results Component Value Date/Time POTASSIUM - [facility] 4.5 01/12/2023 02:45 PM POTASSIUM - [facility] 5.0 08/10/2020 02:34 PM POTASSIUM-[facility] 5.1 10/05/2021 12:00 AM Lab Results Component Value Date/Time TSH - [facility] 2.11 11/22/2021 11:25 AM TSH - [facility] 1.79 08/20/2019 04:24 PM TSH - OUTSIDE LAB 0.979 10/05/2021 12:00 AM Lab Results Component Value Date/Time LDL CHOLESTEROL (CALCULATED) - [facility] 68 06/23/2021 02:37 PM LDL CHOLESTEROL (CALCULATED) - [facility] 156 (H) 08/20/2019 04:24 PM LDL CHOLESTEROL (DIRECT MEASURE) - [facility] 51 07/05/2022 11:25 AM LDL CHOLESTEROL (DIRECT MEASURE) - [facility] 77 03/31/2020 01:13 PM LDL CHOLESTEROL (DIRECT MEASURE) - [facility] NOT APPLICABLE 08/20/2019 04:24 PM Lab Results Component Value Date/Time ALT - [facility] 7 (L) 03/31/2020 01:13 PM Hemoglobin AIC Results: Lab Results Component Value Date/Time HEMOGLOBIN A1C - [facility] 7.0 (H) 01/12/2023 02:45 PM HEMOGLOBIN A1C - [facility] 6.5 (H) 07/05/2022 11:25 AM HEMOGLOBIN A1C - [facility] 5.9 (H) 11/22/2021 11:14 AM HEMOGLOBIN A1C - [facility] 6.9 (H) 03/31/2020 01:13 PM HEMOGLOBIN A1C - [facility] 6.3 (H) 11/11/2019 02:06 PM HEMOGLOBIN A1C - [facility] 5.7 (H) 08/20/2019 04:24 PM documented in this encounter Plan of Treatment Upcoming Encounters Date Type Specialty Care Team Description 04/30/2023 Nurse Only Ancillary Nurse [facility] [address] [place] [address] [place] [phone] 06/19/2023 Cardiac Studies Cardiology [facility] [address] [place] [address] 07/18/2023 Office Visit Family Medicine Shante Contreras MD [address] [place] [address] [place] [address] 08/02/2023 Office Visit Cardiology Shorty Rich DO [address] [place] [address] 09/26/2023 Office Visit Urology Vitaliy Maria MD [address] [place] [address] Health Maintenance Due Date Last Done Comments COVID-19 Vaccine (5 - Pfizer series) 05/31/2022 04/05/2022, 08/05/2021, 12/12/2020, Additional history exists Depression Screening, Annual for Pts 12 and Over 04/27/2023 04/27/2022 Albumin/Creatinine Ratio 07/11/2023 07/11/2022, 11/2 04/2019 HbA1c 07/15/2023 01/12/2023, 09/0 04/2022, 11/22/2021, Additional history exists CKD HGB USE SMARTSET 25397 01/13/202401/12, 12/30/2021, 12/30/2021, Additional history exists CKD PHOS USE SMARTSET 31427 01/13/2024 01/12/2023, 0 05/04/2021 DTaP,Tdap,and Td Vaccines [...] as of this encounter Visit Diagnoses Diagnosis Systolic CHF with reduced left ventricular function, NYHA class 2 (HCC) Unspecified systolic heart failure Hypertension goal BP (blood pressure) < 140/90 Unspecified essential hypertension Coronary artery disease involving [place] coronary artery of [place] heart without angina pectoris documented in this encounter Advance Directives Documents on File Type Date Recorded 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
--- OUTSIDE RECORDS SUMMARY | 2023-09-23 21:09 | External Medical Summary | Summary of Care ---
Author Name Unknown Organization [facility] Address [address] [place] [address] Phone [phone] Care Team Providers Care Distance Learning Technician Name Role Phone Jaelyn Pemberton MD Primary Care Prov ider Reason for Visit * Reason Onset Date Comments Encounter Created in Error 01/26/2023 Encounter Details Date Type Department Care Team Description 01/26/2023 Telephone Care Coordination [address] [place] [address] [facility] [address] [place] [address] Encounter Created in Error Allergies No known active allergiesdocumented as of this encounter (statuses as of 04/19/2023) Medications Medication Sig Dispensed Refills Start Date [...] NYHA class 2 (HCC),Coronary artery disease involving [place] coronary artery of [place] heart without angina pectoris TAKE 1/2 TAB BY MOUTH IN THE MORNING *HOLD IF BLOOD PRESSURE IS LESS THAN 110/70 45 Tablet 1 12/18/2022 Active Sertraline HCl 25 MG Oral Tablet (Zoloft) Take 1 Tablet by mouth in the morning. 90 Tablet 1 12/19/2022 Active Apixaban 2.5 MG Oral Tablet (Eliquis)Indication s:Coronary artery disease involving [place] coronary artery of [place] heart without angina pectoris Take 1 Tablet [...] the morning. 90 Tablet 1 01/22/2023 Active Hospital, Clinic, or Other Facility Administered Medication Ordered Dose Route Frequency Start Date End Date Status vitamin b-12 (Cyanocobalamin) inj 1,000 mcgIndications:B12 deficiency 1000 mcg IM [id number] 01/12/2023 12/14/2023 Active documented as of this encounter (statuses as of 04/19/2023) Active Problems Problem Noted Date S/P total [...] stenosis Hyperlipidemia Coronary artery disease invo lving [place] coronary artery of [place] heart without angina pectoris Aortic stenosis documented as of this encounter (statuses as of 04/19/2023) Resolved Problems Problem Noted Date Resolved Date [...] as of this encounter (statuses as of 04/19/2023) Immunizations Name Administration Dates Next Due COVID-19 [...] encounter Miscellaneous Notes * Telephone Encounter - Oxana Bean - 04/19/2023 12:55 PM EDT Encounter created in error. documented in this encounter Plan of Treatment Upcoming Encounters Date Type Specialty Care Team Description 04/30/2023 Nurse Only Ancillary Nurse [facility] [address] [place] [address] [place] [address] 06/19/2023 Cardiac Studies Cardiology Paolo, Pacer [facility] [address] [place] [address] 07/18/2023 Office Visit Family Medicine Jaelyn Pemberton MD [address] [place] [address] [place] [address] 08/02/2023 Office Visit Cardiology Shorty Rich, [address] [place] [address] 09/26/2023 Office Visit Urology Vitaliy Maria MD [address] [place] [address] [place] [phone] Health Maintenance Due Date Last Done Comments COVID-19 Vaccine (5 - Pfizer series) 05/31/2022 04/05/2022, 08/05/2021, 12/12/2020, Additional history exists Depression Screening, Annual for Pts 12 and Over 04/27/2023 04/27/2022 Albumin/Creatinine Ratio 07/11/2023 07/11/2022, 08/30 HbA1c 07/15/2023 01/12/2023, 0904/2022, 11/22/2021, Additional history exists CKD HGB USE SMARTSET 17468 01/13/202401/12, 12/30/2021, 12/30/2021, Additional history exists CKD PHOS USE SMARTSET 85707 01/13/2024 01/12/2023, 0 05/04/2021 DTaP,Tdap,and Td Vaccines [...] Documents on File Type Date Recorded 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
[2023-09-23 21:50] LABS: Basophils # (auto) 0.06 K/uL (0.00-0.20); Basophils % (auto) 0.5 %; Eosinophils # (auto) 0.47 K/uL (0.00-0.50); Eosinophils % (auto) 3.9 %; Hematocrit (blood only) 31.9 % (42.0-52.0); Hemoglobin 9.9 g/dl (14.0-18.0); Immature Granulocytes # (auto) 0.05 K/uL (0.01-0.20); Immature Granulocytes % (auto) 0.4 %; Lymphocytes # (auto) 1.44 K/uL (1.20-3.40); Mean Corpuscular Hemoglobin 29.7 pg (25.0-34.0); Mean Corpuscular Volume 95.8 fL (80.0-100.0); Neutrophils # (auto) 9.36 K/uL (1.40-6.50); Neutrophils % (auto) 78.2 %; Platelet Count 324 K/uL (130-400); RDW Coefficient of Variation 18.1 % (11.5-14.5); Red Blood Count 3.33 M/uL (4.70-6.10); White Blood Count 11.98 K/ul (4.8-10.8)
[2023-09-23 21:57] LABS: Albumin Globulin Ratio 0.8 (0.9-2); Albumin Level 3.1 gm/dl (3.4-5.0); Bilirubin,Total 0.6 mg/dl (0.2-1.0); Creatinine Clr Calc Pharmacy 34.4 ml/min; Est GFR (African American) 54.3 ml/min; Est GFR (Non-African American) 46.9 ml/min; Globulin 3.8 gm/dl (2.5-4.0); Total Protein 6.9 gm/dl (6.0-8.3)
[2023-09-23 22:04] LABS: Troponin I High Sensitivity 28.9 pg/ml (0-20)
[2023-09-23] MEDS ORDERED: ONDANSETRON INJ 2 MG/ML 2 ML VIAL IV STA (22:04)
--- NOTE | 2023-09-23 22:09 | Emergency Department Note ---
Impression & Plan Acute hypoxic respiratory failure, Acute systolic heart failure, Abdominal pain, Pleural effusion, Pneumonia ED Provider Note Provider: Carlos Falk MD DATE OF SERVICE: 09/23/2023 CHIEF COMPLAINT: Shortness of breath, intermittent chest pain, left lower abdominal pain HISTORY OF PRESENT ILLNESS: Patient is a 88-year-old gentleman past medical history including persistent atrial fibrillation on Eliquis, CKD, pacemaker, CHF, hypertension, CAD, and history of falls presenting here today from [facility] due to shortness of breath this evening as well as some intermittent chest pain throughout the day. Reports some pain also in the left lower abdomen. Reports has been nauseous for a day or 2. Losing weight not eating so much. Was noted to be hypoxic on room air to the 80s at [facility] and not normally on oxygen. Reports some congestion. Unsure if fever. Denies significant leg swelling and states has been losing some weight. Vomited this morning. PAST MEDICAL HISTORY: As noted above MEDICATIONS: Reviewed medication list from the facility SOCIAL HISTORY: Lives at [facility], very distant smoker. PHYSICAL EXAM: GENERAL: alert and oriented in no acute distress on stretcher fatigued in appearance Head: normocephalic and atraumatic EYES: No injection, discharge or icterus. Gaze disconjugate. NECK: Trachea midline. Supple. ENT: Mucous membranes pink and moist. LUNGS: Airway patent. No retractions mildly tachypneic with some transmitted upper airway sounds and diminished bases HEART: Regular rate and rhythm. No chest wall tenderness ABDOMEN: Soft some tenderness towards the left lower quadrant of the abdomen. No guarding. Appreciable abdominal wall hernia here mildly tender but easily reducible. SKIN: Acyanotic, warm, dry, without rashes EXTREMITIES: Without swelling, tenderness or deformity NEUROLOGICAL: No focal deficits. No aphasia. No facial droop or slurred speech. EK bpm. Ventricular paced rhythm occasional PVC. Interventricular conduction delay consistent with his QTc of 507. No Sgarbossa criteria acute ST segment elevation noted. CONTINUOUS CARDIAC MONITORING: was ordered and showed a heart rate of 60s bpm in ventricular paced rhythm occasional PVC 1 view chest x-ray per interpretation: Prior CABG as well as pacemaker leads in place. Complete opacification of the left cardiac border with what appears to be pleural effusion on the side and slightly on the right lower base. Patient's laboratory studies and imaging reviewed. Differential includes pneumonia, CHF, pneumothorax, ACS, PE, aortic dissection, aspiration, appendicitis, infections, diverticulitis, UTI, obstruction, mesenteric ischemia, aortic pathology, inflammatory bowel disease, renal colic, PUD, pancreatitis, biliary pathology, hernia, volvulus, constipation, as well as other pathologies. IMPRESSION/MEDICAL DECISION MAKING: Patient with several complaints. Chronically ill with multiple medical morbidities and advanced age. Patient new oxygen requirement now at 6 L. Patient history of heart failure present. Significantly swollen in the extremities. Wet sounding lungs with diminished bases. Some left lower abdominal pain and states he did vomit earlier and had some nausea. Given some Zofran. Intermittent chest pain but denies currently. Shortness of breath just this afternoon. Question if he could have aspirated causing the shortness of breath. Question if there could be some occult fluid overload or possible pneumonia. Endorses some URI symptoms as well and respiratory viral panel sent. Anticoagulated however PE given his limited mobility status is question as well. Blood work with stable mild anemia and leukocytosis and new of almost 12. No severe electrolyte abnormalities or significant acute renal dysfunction. Troponin minimally elevated but better than previous. No evidence of acute hepatitis. Lipase sent to exclude pancreatitis. Chest x-ray questions pleural effusion and parenchymal opacification predominantly on the left. Given his abdominal tenderness CT obtained here and further evaluation of the lung parenchyma will obtain a CT of the chest as well for further differentiation. CT of the chest per radiology with a large pleural effusion of the left lobe as well as some infiltrative left upper lobe and right perihilar and lung base. There is some hiatal hernia and possible esophagitis noted without evidence of aortic aneurysm or dissection. The radiologist does not note any pulmonary embolisms and questions some component of CHF. CT of the abdomen pelvis per radiology shows what appears to be a stool ball and some constipation without inflammatory findings of the left inguinal hernia. Large gallstone without evidence of cholecystitis noted. Large simple cyst of left kidney noted per radiologist. Discussed with the patient requires further care at the hospital. Some component of CHF would likely benefit with possible thoracentesis. BNP is mildly elevated at 483. While some component of CHF given some tenuous blood pressures will not aggressively diurese at this point discussed the patient and hospitalist contacted. DIAGNOSIS: Hypoxic respiratory failure, CHF, left pleural effusion, pneumonia DISPOSITION: Hospitalist will evaluate Patient was agreeable with this plan. Critical Care I have personally spent 33 minutes of critical care time in the direct management of this patient. This includes bedside care, interpretation of diagnostic studies, and testing, discussion with consultants, patient, and other required patient management activities. These 33 minutes is in excess of all separately billable procedures. Past Med/Surg History Medical History Acute dehydration Acute UTI (urinary tract infection) Anemia Aortic stenosis Atrial fibrillation Bradycardia CAD (coronary artery disease) CHF (congestive heart failure) CKD (chronic kidney disease), stage III Dizziness Elevated troponin I level Glaucoma Head trauma HLD (hyperlipidemia) HTN (hypertension) Mitral regurgitation Neuropathy On anticoagulant therapy Walker as ambulation aid Surgical History History of bilateral cataract extraction History of colonoscopy History of coronary artery bypass graft History of open reduction and internal fixation (ORIF) procedure S/P cardiac pacemaker procedure Family History Mother Heart disease Father Prostate cancer Other No family history of adverse response to anesthesia Social History Smoking Status: Former smoker Tobacco Type: Pipe Second Hand Exposure: Yes; Do You Dip or Chew Tobacco: No; Hx Alcohol Use: Yes Alcohol type: wine Alcohol Intake Frequency: Monthly or Less Hx Substance Use: No Preferred Language: Romanian Communication Ability: Effective Communication Ability Comment: pt does sign own consents Home Office Claims Examiner Required: No Beliefs That Will Affect Care: None marital status: Single Current Living Situation: Alone and Personal Care Facility Current Living Situation Comment: [facility] Independent living How many Children do You have: 0 Feels Safe at Home: Yes Assistive Devices: Walker Allergies Allergies Allergy/AdvReac Type Severity Reaction Status Date / Time No Known Allergies Allergy Verified 07/31/23 07:32 Home Meds Home Medications Medication Instructions Recorded Confirmed bimatoprost 0.01 % eye drops 1 drp OPB HS 12/31/19 07/31/23 (Lumigan) brimonidine 0.2 % eye drops 1 drp OPL TID 12/31/19 07/31/23 carvedilol 3.125 mg tablet 3.125 mg PO BID 02/04/21 07/31/23 cyanocobalamin (vitamin B-12) 1,000 mcg PO QAM 02/04/21 07/31/23 1,000 mcg tablet apixaban 2.5 mg tablet (Eliquis) 2.5 mg PO BID 05/23/21 07/31/23 folic acid 1 mg tablet 1 mg PO HS 05/23/21 07/31/23 iron,carbonyl 65 mg-vitamin C 125 1 tab PO 3XWK 05/23/21 07/31/23 mg tablet,delayed release (Vitron-C) atorvastatin 40 mg tablet 40 mg PO QAM 07/14/21 07/31/23 nitroglycerin 0.4 mg sublingual 0.4 mg sublingual UD PRN Angina 07/14/21 07/31/23 tablet potassium chloride 10 mEq 10 meq PO HS 07/14/21 07/31/23 tablet,extended release (Klor-Con) ferrous sulfate 325 mg (65 mg 65 mg PO QAM 05/24/23 07/31/23 iron) tablet finasteride 5 mg tablet 5 mg PO QAM 05/24/23 07/31/23 losartan 25 mg tablet 12.5 mg PO QAM 05/24/23 07/31/23 metformin 500 mg tablet,extended 500 mg PO QAM 05/24/23 07/31/23 release 24 hr sertraline 25 mg tablet 25 mg PO QAM 05/24/23 07/31/23 Previous Rx's Medication Instructions Recorded isosorbide mononitrate 30 mg 30 mg PO QAM #30 tabs 03/11/21 tablet,extended release 24 hr Results & Data (ED) Vital Signs Vital Signs - 24 hr 09/23/23 21:10 09/23/23 21:21 09/23/23 21:21 Temperature 36.4 C L Temperature Source Oral Pulse Rate 60 60 Pulse Rate [Apical] Respiratory Rate 25 H Respiratory Effort / Characteristics Short of Breath Respiratory Depth Shallow Respiratory Pattern Tachypnea Blood Pressure 149/56 H Blood Pressure [Right Arm] Blood Pressure Mean 87 Blood Pressure Mean [Right Arm] Pulse Oximetry 90 Oxygen Delivery Method Nasal Cannula Nasal Cannula Oxygen Flow Rate 4 4 Sepsis Recent Fever Within 48 Hours No Sepsis New/Unexplained Change in Mental Status No Sepsis Action Taken by Nursing No Action Required Oxygen Flow Rate - Titration Pulse Oximetry Post Tiitration 09/23/23 21:21 09/23/23 21:33 09/23/23 22:50 Temperature Temperature Source Pulse Rate Pulse Rate [Apical] 60 Respiratory Rate 23 Respiratory Effort / Characteristics Respiratory Depth Respiratory Pattern Blood Pressure Blood Pressure [Right Arm] 93/44 L Blood Pressure Mean Blood Pressure Mean [Right Arm] 60 Pulse Oximetry 90 94 93 Oxygen Delivery Method Nasal Cannula Nasal Cannula Nasal Cannula Oxygen Flow Rate 4 6 6 Sepsis Recent Fever Within 48 Hours Sepsis New/Unexplained Change in Mental Status Sepsis Action Taken by Nursing Oxygen Flow Rate - Titration 6 Pulse Oximetry Post Tiitration 94 Laboratory Data 09/23/23 Unknown 09/23/23 Unknown Lab Results 09/23/23 09/23/23 Range/Units 22:29 Unknown WBC 11.98 H (4.8-10.8) K/ul RBC 3.33 L (4.70-6.10) M/uL Hgb 9.9 L (14.0-18.0) g/dl Hct 31.9 L (42.0-52.0) % MCV 95.8 (80.0-100.0) fL MCH 29.7 (25.0-34.0) pg MCHC 31.0 L (32.0-36.0) g/dL RDW Std Deviation 63.0 H (36.4-46.3) fL RDW Coeff of [place] 18.1 H (11.5-14.5) % Plt Count 324 (130-400) K/uL MPV 10.0 (9.4-12.4) fL Immature Gran % (Auto) 0.4 % Neut % (Auto) 78.2 % Lymph % (Auto) 12.0 % [place] % (Auto) 5.0 % Eos % (Auto) 3.9 % Baso % (Auto) 0.5 % Neut # (Auto) 9.36 H (1.40-6.50) K/uL Lymph # (Auto) 1.44 (1.20-3.40) K/uL [place] # (Auto) 0.60 H (0.11-0.59) K/uL Eos # (Auto) 0.47 (0.00-0.50) K/uL Baso # (Auto) 0.06 (0.00-0.20) K/uL Immature Gran # (Auto) 0.05 (0.01-0.20) K/uL PT 13.0 H (9.0-12.0) Seconds INR 1.2 H (0.9-1.1) APTT 29.6 (21.0-31.0) Seconds PTT Ratio 1.0 Sodium 140 (136-145) mmol/L Potassium 4.0 (3.5-5.1) mmol/L Chloride 107 (98-107) mmol/L Carbon Dioxide 25 (21-32) mmol/L Anion Gap 8 (3-11) BUN 31 H (6-23) mg/dl Creatinine 1.35 (0.6-1.4) mg/dl Est Cr Clr Drug Dosing 34.4 ml/min Est GFR ( Amer) 54.3 ml/min Est GFR (Non-Af Amer) 46.9 ml/min BUN/Creatinine Ratio 23.0 H (10-20) Glucose 192 H (70-99(Fasting)) mg/dl Calcium 9.0 (8.6-10.3) mg/dl Total Bilirubin 0.6 (0.2-1.0) mg/dl AST 18 (13-39) U/L ALT 9 (7-52) U/L Alkaline Phosphatase 68 (34-104) U/L Troponin I High Sens 28.9 H (0-20) pg/ml B-Natriuretic Peptide 483 H (0-100) pg/ml Total Protein 6.9 (6.0-8.3) gm/dl Albumin 3.1 L (3.4-5.0) gm/dl Globulin 3.8 (2.5-4.0) gm/dl Albumin/Globulin Ratio 0.8 L (0.9-2) Lipase 30 (11-82) U/L Adenovirus (PCR) Not Detected (NotDetected) B. pertussis DNA (PCR) Not Detected (NotDetected) B.parapertussis DNA PCR Not Detected (NotDetected) C. pneumoniae DNA (PCR) Not Detected (NotDetected) Coronavirus OC43 (PCR) Not Detected (NotDetected) Coronavirus HKU1 (PCR) Not Detected (NotDetected) Coronavirus 229E (PCR) Not Detected (NotDetected) SARS-CoV-2 (PCR) Not Detected (NotDetected) Coronavirus NL63 (PCR) Not Detected (NotDetected) Human Metapneumovir PCR Not Detected (NotDetected) Influenza Type A (PCR) Not Detected (NotDetected) Influenza Type B (PCR) Not Detected (NotDetected) M. pneumoniae (PCR) Not Detected (NotDetected) Parainfluenza 1 (PCR) Not Detected (NotDetected) Parainfluenza 2 (PCR) Not Detected (NotDetected) Parainfluenza 3 (PCR) Not Detected (NotDetected) Parainfluenza 4 (PCR) Not Detected (NotDetected) RSV (PCR) Not Detected (NotDetected) Entero/Rhino (PCR) Not Detected (NotDetected) Administered Medications Discontinued Medications Piperacillin Sod/Tazobactam Sod (Zosyn) 4.5 gm in 100 mls @ 200 mls/hr IV NOW ONE Stop: 09/23/23 23:20 Last Admin: 09/23/23 23:07 Dose: 200 mls/hr Documented By: DIPAK Ioversol (Optiray 320 125ml) 119 ml IV ONCE ONE Stop: 09/23/23 22:41 Last Admin: 09/23/23 22:40 Dose: 119 ml Documented By: WARREN Ondansetron HCl (Ondansetron Inj 2 Mg/Ml 2 Ml Vial) 4 mg IV NOW STA Stop: 09/23/23 22:05 Last Admin: 09/23/23 22:24 Dose: 4 mg Documented By: Imaging Data Radiologist's Impression: Abdomen/Pelvis CT 09/23/23 22:01 Exam(s): CT ABDOMEN + PELVIS With Contrast IV Amt: 119 ml optiray 320 EXAM: CT Abdomen and Pelvis With Intravenous Contrast CLINICAL HISTORY: Reason for exam: lower left pain. TECHNIQUE: Axial computed tomography images of the abdomen and pelvis with intravenous contrast. CTDI is 93 mGy and DLP is 1842.99 mGy-cm. Automated exposure control was utilized for the study. A dose lowering technique was utilized adhering to the principles of ALARA. CONTRAST: Patient received 119 ml optiray 320 of IV contrast COMPARISON: Mar 11 2023 FINDINGS: Lung bases: Unremarkable. No mass. No consolidation. ABDOMEN: Liver: Unremarkable. No mass. Gallbladder and bile ducts: There is a 3.7 cm rim calcified stones within a nondilated gallbladder. No pericholecystic inflammation or biliary duct dilation is seen. Pancreas: Unremarkable. No mass. No ductal dilation. Spleen: Unremarkable. No splenomegaly. Adrenals: Unremarkable. No mass. Kidneys and ureters: There is an 11 cm simple cyst extending off the lower pole of the left kidney. No follow-up is required. No hydronephrosis. Stomach and bowel: 6.5 cm of stool in the rectum suggesting constipation. No dilated bowel loops are identified. No acute inflammatory process is seen. There is a left inguinal hernia measuring 4.1 cm in diameter containing loops of small bowel without signs of obstruction or incarceration. No mucosal thickening. PELVIS: Appendix: No findings to suggest acute appendicitis. Bladder: Unremarkable. No mass. Reproductive: Unremarkable as visualized. ABDOMEN and PELVIS: Intraperitoneal space: Unremarkable. No free air. No significant fluid collection. Bones/joints: Moderate degenerative changes throughout the spine. No acute fracture or subluxation is seen. Metallic artifact from a left hip arthroplasty. No acute fracture or dislocation is seen. Soft tissues: See above. Vasculature: The abdominal aorta is severely calcified but nondilated. There is no aneurysm or dissection. Lymph nodes: Unremarkable. No enlarged lymph nodes. IMPRESSION: 1. 6.5 cm of stool in the rectum suggesting constipation. No dilated bowel loops are identified. No acute inflammatory process is seen. There is a left inguinal hernia measuring 4.1 cm in diameter containing loops of small bowel without signs of obstruction or incarceration. 2. There is a 3.7 cm rim calcified stones within a nondilated gallbladder. No pericholecystic inflammation or biliary duct dilation is seen. Electronically signed by: Carlos uRssell MD 09/23/23 23:29 PM Chest CTA 09/23/23 22:04 Exam(s): CTA CHEST IV Amt: 119 ml optiray 320 EXAM: CT Angiography Chest With Intravenous Contrast CLINICAL HISTORY: Reason for exam: PE, hypoxia, abd pain, SOB. TECHNIQUE: Axial computed tomographic angiography images of the chest with intravenous contrast. CTDI is test is 93 mGy and DLP is 1842.99 mGy-cm. Automated exposure control was utilized for the study. A dose lowering technique was utilized adhering to the principles of ALARA. MIP reconstructed images were created and reviewed. COMPARISON: Chest x-ray from September 23, [address] abdomen and pelvis from March 11, 2023 FINDINGS: Pulmonary arteries: See below. Aorta: The thoracic aorta is severely calcified but nondilated. There is no aneurysm or dissection. Lungs: The pulmonary arterial tree is adequately opacified with contrast. There is motion blur obscuring the distal right lower lobe branches and relatively slow flow in the left lower lobe due to atelectasis. No pulmonary emboli are identified. There is patchy infiltrate or edema throughout the left upper lobe as well as the right perihilar and right basilar lung as well. Consider pneumonia versus pulmonary edema. The heart is not enlarged. There is severe coronary calcification. There is reflux of contrast into the IVC and hepatic veins suggesting CHF. Pleural space: Large left pleural effusion layering the 5 cm thick with complete left lower lobe atelectasis and atelectasis of portions of the lingula and left upper lobe. No pneumothorax. Heart: Unremarkable. No cardiomegaly. No significant pericardial effusion. No evidence of RV dysfunction. Mediastinum: There is a 8 cm hiatal hernia. There is diffuse wall thickening involving the esophagus suggesting esophagitis. Bones/joints: Multilevel osteophytosis ankylosing the thoracic spine. No acute fracture or destructive bone lesion is seen. No dislocation. Soft tissues: Unremarkable. Lymph nodes: Unremarkable. No enlarged lymph nodes. IMPRESSION: 1. Large left pleural effusion layering the 5 cm thick with complete left lower lobe atelectasis and atelectasis of portions of the lingula and left upper lobe. 2. There is patchy infiltrate or edema throughout the left upper lobe as well as the right perihilar and right basilar lung as well. Consider pneumonia versus pulmonary edema. 3. There is a 8 cm hiatal hernia. There is diffuse wall thickening involving the esophagus suggesting esophagitis. 4. The thoracic aorta is severely calcified but nondilated. There is no aneurysm or dissection. 5. The pulmonary arterial tree is adequately opacified with contrast. There is motion blur obscuring the distal right lower lobe branches and relatively slow flow in the left lower lobe due to atelectasis. No pulmonary emboli are identified. 6. The heart is not enlarged. There is severe coronary calcification. There is reflux of contrast into the IVC and hepatic veins suggesting CHF. Electronically signed by: Carlos Russell MD 09/23/23 23:26 PM Discharge Plan Visit Data Chief Complaint: Shortness of Breath/Dyspnea Stated Complaint: SHORT OF BREATH / CHEST PAIN ED Provider: Carlos Falk Discharge Problem: Acute hypoxic respiratory failure, Acute systolic heart failure, Abdominal pain, Pleural effusion, Pneumonia Patient Disposition: Being Evaluated by Hospitalist Condition: Serious Forms Stand Alone Forms: [facility] Prescriptions Prescriptions: No Action Lumigan 0.01 % Drops 1 drp OPB HS brimonidine 0.2 % drops 1 drp OPL TID Vitron-C 65 mg iron- 125 mg tablet,delayed release (DR/EC) 1 tab PO 3XWK Rx Instructions: take once a day on mon,wed,fri only folic acid 1 mg tablet 1 mg PO HS Eliquis 2.5 mg tablet 2.5 mg PO BID cyanocobalamin (vitamin B-12) 1,000 mcg tablet 1,000 mcg PO QAM carvedilol 3.125 mg tablet 3.125 mg PO BID isosorbide mononitrate 30 mg Tablet Extended Release 24 Hr 30 mg PO QAM Qty: 30 0RF potassium chloride [Klor-Con 10] 10 mEq Tablet Extended Release 10 meq PO HS atorvastatin 40 mg tablet 40 mg PO QAM nitroglycerin 0.4 mg Tablet, Sublingual 0.4 mg sublingual UD PRN (Reason: Angina) ferrous sulfate 325 mg (65 mg iron) tablet 65 mg PO QAM sertraline 25 mg tablet 25 mg PO QAM metformin 500 mg tablet extended release 24 hr 500 mg PO QAM finasteride 5 mg tablet 5 mg PO QAM losartan 25 mg tablet 12.5 mg PO QAM Referrals Referrals: Cady Russell PA-C [Primary Care Provider] -
[2023-09-23 22:19] LABS: INR 1.2 (0.9-1.1); Partial Thromboplastin Time 29.6 Seconds (21.0-31.0)
[2023-09-23] MEDS ORDERED: OPTIRAY 320 125ml IV ONE (22:40)
[2023-09-23] MEDS ORDERED: PIPERACILLIN/TAZOBACTAM 4.5 GM/100 ML BAG IV ONE (22:51)
--- NOTE | 2023-09-23 23:27 | CT Scan Report ---
Exam(s): CTA CHEST IV Amt: 119 ml optiray 320 EXAM: CT Angiography Chest With Intravenous Contrast CLINICAL HISTORY: Reason for exam: PE, hypoxia, abd pain, SOB. TECHNIQUE: Axial computed tomographic angiography images of the chest with intravenous contrast. CTDI is test is 93 mGy and DLP is 1842.99 mGy-cm. Automated exposure control was utilized for the study. A dose lowering technique was utilized adhering to the principles of ALARA. MIP reconstructed images were created and reviewed. COMPARISON: Chest x-ray from September 23, [address] abdomen and pelvis from March 11, 2023 FINDINGS: Pulmonary arteries: See below. Aorta: The thoracic aorta is severely calcified but nondilated. There is no aneurysm or dissection. Lungs: The pulmonary arterial tree is adequately opacified with contrast. There is motion blur obscuring the distal right lower lobe branches and relatively slow flow in the left lower lobe due to atelectasis. No pulmonary emboli are identified. There is patchy infiltrate or edema throughout the left upper lobe as well as the right perihilar and right basilar lung as well. Consider pneumonia versus pulmonary edema. The heart is not enlarged. There is severe coronary calcification. There is reflux of contrast into the IVC and hepatic veins suggesting CHF. Pleural space: Large left pleural effusion layering the 5 cm thick with complete left lower lobe atelectasis and atelectasis of portions of the lingula and left upper lobe. No pneumothorax. Heart: Unremarkable. No cardiomegaly. No significant pericardial effusion. No evidence of RV dysfunction. Mediastinum: There is a 8 cm hiatal hernia. There is diffuse wall thickening involving the esophagus suggesting esophagitis. Bones/joints: Multilevel osteophytosis ankylosing the thoracic spine. No acute fracture or destructive bone lesion is seen. No dislocation. Soft tissues: Unremarkable. Lymph nodes: Unremarkable. No enlarged lymph nodes. IMPRESSION: 1. Large left pleural effusion layering the 5 cm thick with complete left lower lobe atelectasis and atelectasis of portions of the lingula and left upper lobe. 2. There is patchy infiltrate or edema throughout the left upper lobe as well as the right perihilar and right basilar lung as well. Consider pneumonia versus pulmonary edema. 3. There is a 8 cm hiatal hernia. There is diffuse wall thickening involving the esophagus suggesting esophagitis. 4. The thoracic aorta is severely calcified but nondilated. There is no aneurysm or dissection. 5. The pulmonary arterial tree is adequately opacified with contrast. There is motion blur obscuring the distal right lower lobe branches and relatively slow flow in the left lower lobe due to atelectasis. No pulmonary emboli are identified. 6. The heart is not enlarged. There is severe coronary calcification. There is reflux of contrast into the IVC and hepatic veins suggesting CHF. Electronically signed by: Carlos Russell MD 09/23/23 23:26 PM
--- NOTE | 2023-09-23 23:29 | CT Scan Report ---
Exam(s): CT ABDOMEN + PELVIS With Contrast IV Amt: 119 ml optiray 320 EXAM: CT Abdomen and Pelvis With Intravenous Contrast CLINICAL HISTORY: Reason for exam: lower left pain. TECHNIQUE: Axial computed tomography images of the abdomen and pelvis with intravenous contrast. CTDI is 93 mGy and DLP is 1842.99 mGy-cm. Automated exposure control was utilized for the study. A dose lowering technique was utilized adhering to the principles of ALARA. CONTRAST: Patient received 119 ml optiray 320 of IV contrast COMPARISON: Mar 11 2023 FINDINGS: Lung bases: Unremarkable. No mass. No consolidation. ABDOMEN: Liver: Unremarkable. No mass. Gallbladder and bile ducts: There is a 3.7 cm rim calcified stones within a nondilated gallbladder. No pericholecystic inflammation or biliary duct dilation is seen. Pancreas: Unremarkable. No mass. No ductal dilation. Spleen: Unremarkable. No splenomegaly. Adrenals: Unremarkable. No mass. Kidneys and ureters: There is an 11 cm simple cyst extending off the lower pole of the left kidney. No follow-up is required. No hydronephrosis. Stomach and bowel: 6.5 cm of stool in the rectum suggesting constipation. No dilated bowel loops are identified. No acute inflammatory process is seen. There is a left inguinal hernia measuring 4.1 cm in diameter containing loops of small bowel without signs of obstruction or incarceration. No mucosal thickening. PELVIS: Appendix: No findings to suggest acute appendicitis. Bladder: Unremarkable. No mass. Reproductive: Unremarkable as visualized. ABDOMEN and PELVIS: Intraperitoneal space: Unremarkable. No free air. No significant fluid collection. Bones/joints: Moderate degenerative changes throughout the spine. No acute fracture or subluxation is seen. Metallic artifact from a left hip arthroplasty. No acute fracture or dislocation is seen. Soft tissues: See above. Vasculature: The abdominal aorta is severely calcified but nondilated. There is no aneurysm or dissection. Lymph nodes: Unremarkable. No enlarged lymph nodes. IMPRESSION: 1. 6.5 cm of stool in the rectum suggesting constipation. No dilated bowel loops are identified. No acute inflammatory process is seen. There is a left inguinal hernia measuring 4.1 cm in diameter containing loops of small bowel without signs of obstruction or incarceration. 2. There is a 3.7 cm rim calcified stones within a nondilated gallbladder. No pericholecystic inflammation or biliary duct dilation is seen. Electronically signed by: Carlos Russell MD 09/23/23 23:29 PM
[2023-09-23 23:30] LABS: Adenovirus PCR Not Detected (NotDetected); Bordetella parapertussis PCR Not Detected (NotDetected); Bordetella pertussis PCR Not Detected (NotDetected); Chlamydia pneumoniae PCR Not Detected (NotDetected); Coronavirus 229E PCR Not Detected (NotDetected); Coronavirus CoV-2 (COVID19)PCR Not Detected (NotDetected); Coronavirus HKU1 PCR Not Detected (NotDetected); Coronavirus NL63 PCR Not Detected (NotDetected); Coronavirus OC43PCR Not Detected (NotDetected); Human Metapneumovirus PCR Not Detected (NotDetected); Influenza A PCR Not Detected (NotDetected); Influenza B PCR Not Detected (NotDetected); Mycoplasma pneumoniae PCR Not Detected (NotDetected); Parainfluenza Virus 1 PCR Not Detected (NotDetected); Parainfluenza Virus 2 PCR Not Detected (NotDetected); Parainfluenza Virus 3 PCR Not Detected (NotDetected); Parainfluenza Virus 4 PCR Not Detected (NotDetected); Respiratory Syncytial VirusPCR Not Detected (NotDetected); Rhinovirus/Enterovirus PCR Not Detected (NotDetected)
--- NOTE | 2023-09-24 00:52 | History & Physical Report ---
Date of Service September 24, 2023 Assessment & Plan (1) Acute hypoxic respiratory failure: Plan: 88-year-old male with past medical history significant for type 2 diabetes, hyperlipidemia, hiatal hernia, chronic systolic CHF, hypertension, moderate aortic stenosis, moderate aortic and mitral regurgitation, history of CAD s/p CABG, persistent atrial fibrillation, s/p pacemaker, vitamin B12 deficiency, BPH, iron deficiency anemia, depression, blindness of right eye, blurry vision left eye, frequent falls frequently, balance disorder, who lives at [facility] presents with shortness of breath and requiring 6 L oxygen and found to have pleural effusions, CHF and possible pneumonia.Not on home oxygen. Acute hypoxic respiratory failure From acute on chronic systolic and diastolic CHF. EF 50 to 55% on echo in April 2023 and moderate aortic stenosis and moderate aortic regurgitation and moderate mitral regurgitation Pleural effusions Possible pneumonia Possible aspiration Respiratory bio fire negative Empiric Zosyn and doxycycline Blood pressure is soft could not give IV Lasix. For now holding home p.o. Lasix and kcl supplement Will get echo Close monitor on telemetry Speech evaluation Consult cardiology and pulmonary in a.m. Chest pain On and off Mild elevation of troponin We will follow serial enzymes and echo and repeat EKG Cardio consulted. Diabetes Sliding scale We will monitor Hypertension On Coreg and Imdur and losartan All will be held because of hypotension Restart when able History of CAD s/p CABG On aspirin and statin Holding beta-indigo and Imdur for hypotension and restart when able Type 2 diabetes Holding metformin Insulin sliding scale Will monitor Atrial fibrillation History of symptomatic bradycardia S/p pacemaker On aspirin Eliquis stopped because of falls Currently Coreg held for hypotension Close monitor DVT prophylaxis SCDs and heparin subcu Disposition Telemetry floor CODE STATUS DNR/DNI as per discussion with the snf and also with his [id number] History of Present Illness Chief Complaint: Shortness of breath and chest pain Primary Care Provider: Cady Russell PA-C 88-year-old male with past medical history significant for type 2 diabetes, hyperlipidemia, hiatal hernia, chronic systolic CHF, hypertension, moderate aortic stenosis, moderate aortic and mitral regurgitation, history of CAD s/p CABG, persistent atrial fibrillation, s/p pacemaker, vitamin B12 deficiency, BPH, iron deficiency anemia, depression, blindness of right eye, blurry vision left eye, frequent falls , balance disorder, who lives at [facility] presents with shortness of breath. Patient is currently oriented to name states he gets on and off chest pain but currently no chest pain. Denies any belly pain. Denies any headache. Denies nausea. Patient currently seems to be get getting confused. As per nursing staff he was okay earlier but got confused later. As per snf he complained of shortness of breath around 5 PM felt like he was drowning. Has some cough. No fevers. At the time he also complains of some chest pain. No nausea no nausea vomiting. No diarrhea. He is on regular diet and thin liquids. He ambulates with walker with assistance.. Past medical history. As mentioned above Past surgical history. CABG, colonoscopy, EGD, total left hip replacement. Social history. Currently living at [facility]. Quit smoking 2018. Smoked 5 pack a day for 3 years. Alcohol rare. No drug use. Family history. Father had prostate cancer. Mother had heart disorder. Allergies Allergy/AdvReac Type Severity Reaction Status Date / Time No Known Allergies Allergy Verified 09/24/23 01:22 Home Medications Medication Instructions Recorded Confirmed Type bimatoprost 0.01 % eye drops 1 drp OPB HS 12/31/19 09/24/23 History (Rosibel) brimonidine 0.2 % eye drops 1 drp OPL TID 12/31/19 09/24/23 History carvedilol 3.125 mg tablet 3.125 mg PO AMHS 02/04/21 09/24/23 History cyanocobalamin (vitamin B-12) 1,000 mcg PO QAM 02/04/21 09/24/23 History 1,000 mcg tablet isosorbide mononitrate 30 mg 30 mg PO QAM #30 tabs 03/11/21 09/24/23 Rx tablet,extended release 24 hr folic acid 1 mg tablet 1 mg PO HS 05/23/21 09/24/23 History atorvastatin 40 mg tablet 40 mg PO QAM 07/14/21 09/24/23 History nitroglycerin 0.4 mg sublingual 0.4 mg sublingual UD PRN Angina 07/14/21 09/24/23 History tablet potassium chloride 10 mEq 10 meq PO HS 07/14/21 09/24/23 History tablet,extended release (Klor-Con) ferrous sulfate 325 mg (65 mg 65 mg PO BID 05/24/23 09/24/23 History iron) tablet finasteride 5 mg tablet 5 mg PO QAM 05/24/23 09/24/23 History losartan 25 mg tablet 12.5 mg PO QAM 05/24/23 09/24/23 History metformin 500 mg tablet,extended 500 mg PO QAM 05/24/23 09/24/23 History release 24 hr Magic Cup 1 ea PO HS 09/24/23 09/24/23 History acetaminophen 325 mg tablet 650 mg PO Q4 PRN Fever Or Pain 09/24/23 09/24/23 History (Tylenol) aspirin 81 mg tablet,delayed 81 mg PO DAILY 09/24/23 09/24/23 History release dorzolamide 22.3 mg-timolol 6.8 1 drp OPL TID 09/24/23 09/24/23 History mg/mL eye drops food supplemt, lactose-reduced 1 ea PO TID 09/24/23 09/24/23 History furosemide 20 mg tablet (Lasix) 20 mg PO DAILY 09/24/23 09/24/23 History mirtazapine 15 mg tablet 15 mg PO HS 09/24/23 09/24/23 History sennosides 8.6 mg-docusate sodium 1 tab-cap PO HS 09/24/23 09/24/23 History 50 mg tablet (Senna with Docusate Sodium) sennosides 8.6 mg-docusate sodium 2 tab-cap PO DAILY 09/24/23 09/24/23 History 50 mg tablet (Senna-S) tramadol 50 mg tablet 50 mg PO Q6H PRN Pain 09/24/23 09/24/23 History Past Med/Surg History Medical History Acute dehydration Acute UTI (urinary tract infection) Anemia Aortic stenosis Atrial fibrillation Bradycardia CAD (coronary artery disease) CHF (congestive heart failure) CKD (chronic kidney disease), stage III Dizziness Elevated troponin I level Glaucoma Head trauma HLD (hyperlipidemia) HTN (hypertension) Mitral regurgitation Neuropathy On anticoagulant therapy Walker as ambulation aid Surgical History History of bilateral cataract extraction History of colonoscopy History of coronary artery bypass graft History of open reduction and internal fixation (ORIF) procedure S/P cardiac pacemaker procedure Family History Mother Heart disease Father Prostate cancer Other No family history of adverse response to anesthesia Social History Smoking Status: Never smoker Tobacco Type: Pipe Second Hand Exposure: No; Do You Dip or Chew Tobacco: No; Tobacco Cessation Education Requested by Patient: No Hx Alcohol Use: No Hx Substance Use: No Preferred Language: Bruneian Communication Ability: Effective Communication Ability Comment: pt does sign own consents Program Or Project Administrator Required: No Beliefs That Will Affect Care: None marital status: Single Current Living Situation: [facility] Current Living Situation Comment: [facility] Independent living How many Children do You have: 0 Other Information That Helps Us Care for You: No Feels Safe at Home: Yes Safety Concerns: Feels Safe At This Time Assistive Devices: None Review of Systems Review of Systems: Unobtainable due to cognitive status Physical Exam Physical Exam: General- Not in distress Head- atraumatic Eyes- PERRL., ENT- oropharynx clear Neck- supple, no JVD Lungs- clear to auscultation b/l mild ronchi. Heart- regular rhythm; ESM , no gallop, Abdomen- normal bowel sounds, soft, nontender, no distension. Extremities- trace pretibial edema, no erythema seen. Neuro- alert, oriented x 1; PERRL, no facial palsy; no dysarthria; moves extremities Skin- warm & dry Results & Data Results & Data Vital Signs (Past 12 Hours) Vital Signs Temp Pulse Pulse Resp BP BP Pulse Ox 09/24/23 00:00 80 22 117/54 L 98 09/23/23 22:50 60 23 93/44 L 93 09/23/23 21:33 94 09/23/23 21:21 90 09/23/23 21:21 09/23/23 21:21 36.4 C L 60 25 H 149/56 H 90 09/23/23 21:10 60 O2 Del Method O2 Flow Rate 09/24/23 00:00 Nasal Cannula 6 09/23/23 22:50 Nasal Cannula 6 09/23/23 21:33 Nasal Cannula 6 09/23/23 21:21 Nasal Cannula 4 09/23/23 21:21 Nasal Cannula 4 09/23/23 21:21 Nasal Cannula 4 09/23/23 21:10 Diagnostic Findings Laboratory Results WBC 11.98 K/ul (4.8-10.8) H 09/23/23 Unknown RBC 3.33 M/uL (4.70-6.10) L 09/23/23 Unknown Hgb 9.9 g/dl (14.0-18.0) L 09/23/23 Unknown Hct 31.9 % (42.0-52.0) L 09/23/23 Unknown MCV 95.8 fL (80.0-100.0) 09/23/23 Unknown MCH 29.7 pg (25.0-34.0) 09/23/23 Unknown MCHC 31.0 g/dL (32.0-36.0) L 09/23/23 Unknown RDW Std Deviation 63.0 fL (36.4-46.3) H 09/23/23 Unknown RDW Coeff of [place] 18.1 % (11.5-14.5) H 09/23/23 Unknown Plt Count 324 K/uL (130-400) 09/23/23 Unknown MPV 10.0 fL (9.4-12.4) 09/23/23 Unknown Immature Gran % (Auto) 0.4 % 09/23/23 Unknown Neut % (Auto) 78.2 % 09/23/23 Unknown Lymph % (Auto) 12.0 % 09/23/23 Unknown Walsh % (Auto) 5.0 % 09/23/23 Unknown Eos % (Auto) 3.9 % 09/23/23 Unknown Baso % (Auto) 0.5 % 09/23/23 Unknown Neut # (Auto) 9.36 K/uL (1.40-6.50) H 09/23/23 Unknown Lymph # (Auto) 1.44 K/uL (1.20-3.40) 09/23/23 Unknown Walsh # (Auto) 0.60 K/uL (0.11-0.59) H 09/23/23 Unknown Eos # (Auto) 0.47 K/uL (0.00-0.50) 09/23/23 Unknown Baso # (Auto) 0.06 K/uL (0.00-0.20) 09/23/23 Unknown Immature Gran # (Auto) 0.05 K/uL (0.01-0.20) 09/23/23 Unknown PT 13.0 Seconds (9.0-12.0) H 09/23/23 Unknown INR 1.2 (0.9-1.1) H 09/23/23 Unknown APTT 29.6 Seconds (21.0-31.0) 09/23/23 Unknown PTT Ratio 1.0 09/23/23 Unknown Sodium 140 mmol/L (136-145) 09/23/23 Unknown Potassium 4.0 mmol/L (3.5-5.1) 09/23/23 Unknown Chloride 107 mmol/L (98-107) 09/23/23 Unknown Carbon Dioxide 25 mmol/L (21-32) 09/23/23 Unknown Anion Gap 8 (3-11) 09/23/23 Unknown BUN 31 mg/dl (6-23) H 09/23/23 Unknown Creatinine 1.35 mg/dl (0.6-1.4) 09/23/23 Unknown Est Cr Clr Drug Dosing 34.4 ml/min 09/23/23 Unknown Est GFR ( Amer) 54.3 ml/min 09/23/23 Unknown Est GFR (Non-Af Amer) 46.9 ml/min 09/23/23 Unknown BUN/Creatinine Ratio 23.0 (10-20) H 09/23/23 Unknown Glucose 192 mg/dl (70-99(Fasting)) H 09/23/23 Unknown Calcium 9.0 mg/dl (8.6-10.3) 09/23/23 Unknown Total Bilirubin 0.6 mg/dl (0.2-1.0) 09/23/23 Unknown AST 18 U/L (13-39) 09/23/23 Unknown ALT 9 U/L (7-52) 09/23/23 Unknown Alkaline Phosphatase 68 U/L (34-104) 09/23/23 Unknown Troponin I High Sens 28.9 pg/ml (0-20) H 09/23/23 Unknown B-Natriuretic Peptide 483 pg/ml (0-100) H 09/23/23 Unknown Total Protein 6.9 gm/dl (6.0-8.3) 09/23/23 Unknown Albumin 3.1 gm/dl (3.4-5.0) L 09/23/23 Unknown Globulin 3.8 gm/dl (2.5-4.0) 09/23/23 Unknown Albumin/Globulin Ratio 0.8 (0.9-2) L 09/23/23 Unknown Lipase 30 U/L (11-82) 09/23/23 Unknown Adenovirus (PCR) Not Detected (NotDetected) 09/23/23 22:29 B. pertussis DNA (PCR) Not Detected (NotDetected) 09/23/23 22:29 B.parapertussis DNA PCR Not Detected (NotDetected) 09/23/23 22:29 C. pneumoniae DNA (PCR) Not Detected (NotDetected) 09/23/23 22:29 Coronavirus OC43 (PCR) Not Detected (NotDetected) 09/23/23 22:29 Coronavirus HKU1 (PCR) Not Detected (NotDetected) 09/23/23 22:29 Coronavirus 229E (PCR) Not Detected (NotDetected) 09/23/23 22:29 SARS-CoV-2 (PCR) Not Detected (NotDetected) 09/23/23 22:29 Coronavirus NL63 (PCR) Not Detected (NotDetected) 09/23/23 22:29 Human Metapneumovir PCR Not Detected (NotDetected) 09/23/23 22:29 Influenza Type A (PCR) Not Detected (NotDetected) 09/23/23 22:29 Influenza Type B (PCR) Not Detected (NotDetected) 09/23/23 22:29 M. pneumoniae (PCR) Not Detected (NotDetected) 09/23/23 22:29 Parainfluenza 1 (PCR) Not Detected (NotDetected) 09/23/23 22:29 Parainfluenza 2 (PCR) Not Detected (NotDetected) 09/23/23 22:29 Parainfluenza 3 (PCR) Not Detected (NotDetected) 09/23/23 22:29 Parainfluenza 4 (PCR) Not Detected (NotDetected) 09/23/23 22:29 RSV (PCR) Not Detected (NotDetected) 09/23/23 22:29 Entero/Rhino (PCR) Not Detected (NotDetected) 09/23/23 22:29 Impressions Abdomen/Pelvis CT 09/23/23 22:01 Exam(s): CT ABDOMEN + PELVIS With Contrast IV Amt: 119 ml optiray 320 EXAM: CT Abdomen and Pelvis With Intravenous Contrast CLINICAL HISTORY: Reason for exam: lower left pain. TECHNIQUE: Axial computed tomography images of the abdomen and pelvis with intravenous contrast. CTDI is 93 mGy and DLP is 1842.99 mGy-cm. Automated exposure control was utilized for the study. A dose lowering technique was utilized adhering to the principles of ALARA. CONTRAST: Patient received 119 ml optiray 320 of IV contrast COMPARISON: Mar 11 2023 FINDINGS: Lung bases: Unremarkable. No mass. No consolidation. ABDOMEN: Liver: Unremarkable. No mass. Gallbladder and bile ducts: There is a 3.7 cm rim calcified stones within a nondilated gallbladder. No pericholecystic inflammation or biliary duct dilation is seen. Pancreas: Unremarkable. No mass. No ductal dilation. Spleen: Unremarkable. No splenomegaly. Adrenals: Unremarkable. No mass. Kidneys and ureters: There is an 11 cm simple cyst extending off the lower pole of the left kidney. No follow-up is required. No hydronephrosis. Stomach and bowel: 6.5 cm of stool in the rectum suggesting constipation. No dilated bowel loops are identified. No acute inflammatory process is seen. There is a left inguinal hernia measuring 4.1 cm in diameter containing loops of small bowel without signs of obstruction or incarceration. No mucosal thickening. PELVIS: Appendix: No findings to suggest acute appendicitis. Bladder: Unremarkable. No mass. Reproductive: Unremarkable as visualized. ABDOMEN and PELVIS: Intraperitoneal space: Unremarkable. No free air. No significant fluid collection. Bones/joints: Moderate degenerative changes throughout the spine. No acute fracture or subluxation is seen. Metallic artifact from a left hip arthroplasty. No acute fracture or dislocation is seen. Soft tissues: See above. Vasculature: The abdominal aorta is severely calcified but nondilated. There is no aneurysm or dissection. Lymph nodes: Unremarkable. No enlarged lymph nodes. IMPRESSION: 1. 6.5 cm of stool in the rectum suggesting constipation. No dilated bowel loops are identified. No acute inflammatory process is seen. There is a left inguinal hernia measuring 4.1 cm in diameter containing loops of small bowel without signs of obstruction or incarceration. 2. There is a 3.7 cm rim calcified stones within a nondilated gallbladder. No pericholecystic inflammation or biliary duct dilation is seen. Electronically signed by: Carlos Russell MD 09/23/23 23:29 PM Chest CTA 09/23/23 22:04 Exam(s): CTA CHEST IV Amt: 119 ml optiray 320 EXAM: CT Angiography Chest With Intravenous Contrast CLINICAL HISTORY: Reason for exam: PE, hypoxia, abd pain, SOB. TECHNIQUE: Axial computed tomographic angiography images of the chest with intravenous contrast. CTDI is test is 93 mGy and DLP is 1842.99 mGy-cm. Automated exposure control was utilized for the study. A dose lowering technique was utilized adhering to the principles of ALARA. MIP reconstructed images were created and reviewed. COMPARISON: Chest x-ray from September 23, [address] abdomen and pelvis from March 11, 2023 FINDINGS: Pulmonary arteries: See below. Aorta: The thoracic aorta is severely calcified but nondilated. There is no aneurysm or dissection. Lungs: The pulmonary arterial tree is adequately opacified with contrast. There is motion blur obscuring the distal right lower lobe branches and relatively slow flow in the left lower lobe due to atelectasis. No pulmonary emboli are identified. There is patchy infiltrate or edema throughout the left upper lobe as well as the right perihilar and right basilar lung as well. Consider pneumonia versus pulmonary edema. The heart is not enlarged. There is severe coronary calcification. There is reflux of contrast into the IVC and hepatic veins suggesting CHF. Pleural space: Large left pleural effusion layering the 5 cm thick with complete left lower lobe atelectasis and atelectasis of portions of the lingula and left upper lobe. No pneumothorax. Heart: Unremarkable. No cardiomegaly. No significant pericardial effusion. No evidence of RV dysfunction. Mediastinum: There is a 8 cm hiatal hernia. There is diffuse wall thickening involving the esophagus suggesting esophagitis. Bones/joints: Multilevel osteophytosis ankylosing the thoracic spine. No acute fracture or destructive bone lesion is seen. No dislocation. Soft tissues: Unremarkable. Lymph nodes: Unremarkable. No enlarged lymph nodes. IMPRESSION: 1. Large left pleural effusion layering the 5 cm thick with complete left lower lobe atelectasis and atelectasis of portions of the lingula and left upper lobe. 2. There is patchy infiltrate or edema throughout the left upper lobe as well as the right perihilar and right basilar lung as well. Consider pneumonia versus pulmonary edema. 3. There is a 8 cm hiatal hernia. There is diffuse wall thickening involving the esophagus suggesting esophagitis. 4. The thoracic aorta is severely calcified but nondilated. There is no aneurysm or dissection. 5. The pulmonary arterial tree is adequately opacified with contrast. There is motion blur obscuring the distal right lower lobe branches and relatively slow flow in the left lower lobe due to atelectasis. No pulmonary emboli are identified. 6. The heart is not enlarged. There is severe coronary calcification. There is reflux of contrast into the IVC and hepatic veins suggesting CHF. Electronically signed by: Carlos Russell MD 09/23/23 23:26 PM ECG Additional Comments: ECG. Ventricular paced rhythm with occasional PVCs at a rate of 65
[2023-09-24] MEDS ORDERED: GLUCOSE 10 TAB/TUBE PO PRN (03:32)
[2023-09-24] MEDS ORDERED: NITROGLYCERIN SL 0.4 MG/TAB TAB SL PRN (03:32)
[2023-09-24] MEDS ORDERED: ACETAMINOPHEN 325 MG TAB PO PRN (03:32)
[2023-09-24] MEDS ORDERED: GLUCAGON FOR INJ 1 MG VIAL SQ PRN (03:32)
[2023-09-24] MEDS ORDERED: CARBOHYDRATES FOR HYPOGLYCEMIA PO PRN (03:32)
[2023-09-24] MEDS ORDERED: GLUCOSE 40% GEL 15 GM TUBE PO PRN (03:32)
[2023-09-24] MEDS ORDERED: POLYETHYLENE (MIRALAX) 17 GM PACK PO PRN (03:32)
[2023-09-24] MEDS ORDERED: DEXTROSE 50% 50 ML SYRINGE IV PRN (03:32)
--- OUTSIDE RECORDS SUMMARY | 2023-09-24 03:34 | External Medical Summary | Summary of Care ---
Author Name Unknown Organization [facility] Address [address] [place] [address] Phone [phone] Care Team Providers Care Human Resources Generalist Name Role Phone Jaelyn Pemberton MD Primary Care Prov ider Encounter Details Date Type Department Care Team (Late st Contact Info) Description 09/24/2023 Orders Only Lab Mobile Phlebotomy [facility] [address] [place] [address] Angel Coronel MD [address] [place] [address] [place] [id number] DM type 2, not at goal (HCC)* Allergies No known active allergiesdocumented as of this encounter (statuses as of 09/24/2023) Medications Medication Sig Dispensed Refills Start Date [...] (blood pressure) < 140/90,Coronary artery disease involving tazlina coronary artery of tazlina heart without angina pectoris Take 1 Tablet [...] NYHA class 2 (HCC),Coronary artery disease involving tazlina coronary artery of tazlina heart without angina pectoris TAKE 1/2 TAB [...] as of this encounter (statuses as of 09/24/2023) Active Problems Problem Noted Date Diagnosed Date [...] stenosis Hyperlipidemia Coronary artery disease invo lving tazlina coronary artery of tazlina heart without angina pectoris Moderate aortic stenosis by prior echocardiogram documented as of this encounter (statuses as of 09/24/2023) Resolved Problems Problem Noted Date Diagnosed Date [...] as of this encounter (statuses as of 09/24/2023) Immunizations Name Administration Dates Next Due COVID-19 mRNA, LNP-s, No Pre serve, 2-Dose Series (Localo) 08/05/2021,12/12/2020,11/21/2020 COVID-19, LNP-s, No Preserve , Rashawn-sucrose, [...] Care Team (Late st Contact Info) Description 09/24/2023 8:00 AM EST Laboratory Lab Mobile Phlebotomy [facility] [address] [facility] [place] [id number] [place] [id number] 09/26/2023 11:15 AM EST Office Visit Urology, [facility] [address] [facility] [place] [id number] Vitaliy Maria MD [address] [facility] [address] [place] [id number] 12/17/2023 3:20 PM EST Office Visit Dermatology [address] [place] [phone] Keira De Jesus PA-C [address] [place] [address] [place] [id number] 03/14/2024 9:00 AM EDT Cardiac Studies Cardiology, [facility] [address] [facility] [place] [address] [place], Pacer Clinic [facility] [address] [facility] [place] [id number] 05/02/2024 2:00 PM EDT Nurse Only Ancillary [address] [place] [address] Pa[place], Nurse Annual [address] [place] [id number] Scheduled Orders Name Type Priority Associated Diagnoses Orde r Schedule CBC WITH WBC DIFFERENTIAL Lab Routine DM type 2, not at goal (HCC) Expected: 09/24/2023, Expires: 09/24/2024 BASIC METABOLIC PANEL Lab Routine DM type 2, not at goal (HCC) Expected: 09/24/2023, Expires: 09/24/2024 Health Maintenance Due Date Last Done Comments Hepatitis B (1 of 3 - Risk 3-dose series) 1996 Diabetic Foot Exam 04/22/2022 04/22/2021, 09/23/2019 COVID-19 Vaccine ( season) 2023 04/05/2022, 08/05/2021, 12/12/2020, Additional history exists Albumin/Creatinine Ratio 07/11/2023 07/11/2022, 08/30 HbA1c 07/15/2023 01/12/2023, 09/0 04/2022, 11/22/2021, Additional history exists CKD PHOS USE SMARTSET 99876 01/13/2024 01/12/2023, 0 05/04/2021 Diabetic Eye Exam 03/15/2024 03/15/2023, , 06/20/2022, Additional history exists Depression Screening 04/30/2024 04/30/2023 CKD HGB USE SMARTSET 76740 09/17/202409/17, 09/17/2023, 09/10/2023, Additional history exists DTaP,Tdap,and [...] Documents on File Type Date Recorded Patient Orthopaedic Physician Assistant Expl anation Power of Pipe Layer Helper 01/13/2019 POWER OF A TTORNEY Healthcare Agents on File Name Relationship Healthcare Agent Relationship Communication Ian Henriquez Other - (no specific identity) Health Care Agent (per Health Care Power of Pipe Layer Helper document) Care Teams Human Resources Generalist Relationship Specialty Start Date End Date Jaelyn Pemberton MD [address] [place] [address] [place] [id number] PCP - General Family Medicine 08/20/19 documented as of this encounter
[2023-09-24 04:26] LABS: Basophils # (auto) 0.02 K/uL (0.00-0.20); Basophils % (auto) 0.2 %; Eosinophils # (auto) 0.01 K/uL (0.00-0.50); Eosinophils % (auto) 0.1 %; Hematocrit (blood only) 29.3 % (42.0-52.0); Hemoglobin 9.4 g/dl (14.0-18.0); Immature Granulocytes # (auto) 0.04 K/uL (0.01-0.20); Immature Granulocytes % (auto) 0.3 %; Lymphocytes # (auto) 0.69 K/uL (1.20-3.40); Mean Corpuscular Hemoglobin 29.9 pg (25.0-34.0); Mean Corpuscular Hgb Conc 32.1 g/dL (32.0-36.0); Mean Corpuscular Volume 93.3 fL (80.0-100.0); Mean Platelet Volume 9.9 fL (9.4-12.4); Monocytes % (auto) 6.1 %; Neutrophils # (auto) 10.09 K/uL (1.40-6.50); Neutrophils % (auto) 87.3 %; Platelet Count 240 K/uL (130-400); RDW Coefficient of Variation 18.1 % (11.5-14.5); RDW Standard Deviation 61.1 fL (36.4-46.3); Red Blood Count 3.14 M/uL (4.70-6.10); White Blood Count 11.55 K/ul (4.8-10.8)
[2023-09-24 04:41] LABS: BUN Creatinine Ratio 22.6 (10-20); Calcium 8.9 mg/dl (8.6-10.3); Creatinine Clr Calc Pharmacy 33.9 ml/min; Est GFR (African American) 53.4 ml/min; Potassium 4.4 mmol/L (3.5-5.1)
[2023-09-24 04:48] LABS: Troponin I High Sensitivity 36.1 pg/ml (0-20)
[2023-09-24] MEDS ORDERED: DOXYCYCLINE HYCLATE 100 MG in DEXTROSE 5% MINI-B 100 ML IV SCH (06:00)
--- NOTE | 2023-09-24 06:46 | XRay Report ---
XR chest 1V not portable HISTORY: 88 years-old Male Chest pain, nonspecific acute chest pain COMPARISON: CTA chest of same day TECHNIQUE: AP view of the chest FINDINGS: Cardiac silhouette is enlarged. Sternotomy wires are present along with a left subclavian pacer. Smal l right and large left pleural effusions. No pneumothorax. Left lung volume loss with bilateral airsp stephon opacities and pulmonary vascular congestion. Degenerative changes of the shoulders and spine. IMPRESSION: 1. Cardiomegaly with pulmonary vascular congestion, small right and large left pleural effusions. 2. Left lung volume loss is noted along with bilateral airspace opacities, better evaluated on the sa day CTA of the chest. ACT 112: Negative or not required by law. The above report was generated using voice recognition software. It may contain grammatical, syntax o r spelling errors. Electronically signed by: Bon Alfonso M.D. 09/24/2023 6:44 AM
[2023-09-24] MEDS: PIPERACILLIN/TAZOBACTAM 4.5 GM in DEXTROSE 5% MINI-B 100 ML IV SCH ×3 (07:27→22:12)
[2023-09-24] MEDS ORDERED: VANCOMYCIN CONSULT ACTIVE PRN (07:34)
[2023-09-24] MEDS ORDERED: VANCOMYCIN HCL 1,250 MG in SODIUM CHLORIDE 0.9% 500 ML IV ONE (07:45)
[2023-09-24 07:49] LABS: Estimated Average Glucose 146 mg/dl; Hemoglobin A1C 6.7 % (4.5-5.6)
--- NOTE | 2023-09-24 08:22 | Cardiology Consultation ---
Date of Consultation September 24, 2023 Assessment & Plan (1) Acute hypoxic respiratory failure: (2) Acute on chronic combined systolic (congestive) and diastolic (congestive) heart failure: Ischemic heart disease status post CABG in [place], 2007 LVEF 50 to 55% per echo 02/2021 (3) Pleural effusion: (4) Permanent atrial fibrillation: (5) S/P cardiac pacemaker procedure: Symptomatic bradycardia, status post [employer] permanent pacemaker, 06/05/2016--per Dr. Rich only 8 months of battery life per office visit note 08/2023 Permanent atrial fibrillation, Eliquis discontinued due to falls 09/18/[address] Rich (6) Aortic stenosis: Moderate per echo dated 03/04/2021 in outpatient records. Moderate AI and MR also noted at this time. Plan IMPRESSION: Medically complex 88-year-old male who presented to [facility] emergency department due to acute hypoxic respiratory failure. Found to have a large left pleural effusion and possible aspiration pneumonia. Known history of permanent atrial fibrillation status post permanent pacemaker. PLAN: Acute on chronic CHF/Left pleural effusion: Hypoxia likely multifactorial secondary to possible aspiration pneumonia with superimposed acute on chronic CHF. Large left pleural effusion noted on CT and chest x-ray--unable to diurese with Lasix due to borderline hypotension. Appreciate pulmonary recommendations. Possible aspiration pneumonia, antibiotics per primary team. NPO until evaluated by speech. Echocardiogram pending, harsh systolic murmur heard on auscultation--will reassess aortic valve gradients, possible severe aortic stenosis Permanent atrial fibrillation/permanent pacemaker ([employer]): Patient ventricular paced in the 60s with an underlying rhythm of atrial fibr illation--outpatient records suggest device approaching NED--device interrogation ordered for further evaluation Not on anticoagulation due to frequent falls--Eliquis discontinued 09/18/2023 Carvedilol on hold due to hypotension. Ischemic heart disease: Goal-directed medical therapy with carvedilol, losartan, and Imdur on hold due to hypotension. Continue aspirin and statin. Case discussed with Dr. eFrrari-- will follow. I spent a total of 40 minutes on the date of service in preparation, delivery, and documentation of the care provided to this patient, excluding any time spent in the performance of separately billed services. Supervising Physician Co-Signing Physician Notes 88-year-old patient admitted with multifactorial acute respiratory failure with hypoxia. Chest x-ray revealing large left-sided pleural effusion. Concerns regarding aspiration/URI. He is a poor historian due to underlying dementia. Notes mild, chest discomfort associated with cough. Minimal sputum production. PE: VSS. Borderline hypotensive. General: NAD, awake and alert. Heart: Irregular rhythm, normal S1-S2, 2/6 systolic ejection murmur heard best at the right second costal space. Pulmonary: Bilateral rhonchi with diminished breath sounds on the left side. Extremities: No edema. A/P: Agree with above DEAN OF [employer]UDENT [employer] history, physical exam, assessment and plan. 88-year-old patient with multifactorial respiratory failure. Attempt diuresis as blood pressure allows. Await pulmonary recommendations regarding possible thoracentesis. Rate controlled atrial fibrillation on telemetry. Anticoagulation discontinued due to fall risk. Continue rate control strategy. Carvedilol on hold due to hypotension. Consider transition to low-dose metoprolol during hospitalization. Continue aspirin and statin. Antibiotics and aspiration precautions as per internal medicine. Thank you for allow me to participate in the care of your patient. History of Present Illness Reason for Consultation: Acute on chronic CHF Requesting Physician: Emmie hospitalist Attending Physician: Bernabe Phillips MD History of Present Illness 88-year-old male who initially presented from [facility] to the [facility] emergency department due acute hypoxic respiratory failure requiring 6 L of supplemental O2. CTA of the chest showed a small right and large left pleural effusion and possible pneumonia. No PE. Started on IV antibiotics. Dilated IVC however, due to hypotensive BP-- Lasix held. Normally maintains on 20 mg of Lasix daily. Labs: Renal function stable. Electrolytes within normal limits. High- sensitivity troponin mildly elevated (25.8>>28.9>>36.1). Respiratory panel negative. Echo pending. Upon entrance into the room patient resting in bed. Hard of hearing and a poor historian. Notes dyspnea and a moist productive cough. Bedside swallow study done by nursing, notes significant coughing during test. Patient made NPO. Patient declining any chest pain. No palpitations. No lightheadedness or dizziness. Upon chart review patient has noted to have frequent falls and Eliquis was discontinued earlier in the month. Tele: V-paced in the 60s, underlying rhythm of permanent atrial fibrillation. I&O: +300 mL Weight: 63 kg Primary residence: [facility] Primary outpatient payroll representative: Dr. 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 Rich only 8 months of battery life per office visit note 08/2023 Permanent atrial fibrillation, Eliquis discontinued due to falls 09/18/[address] Rich Chronic anemia Type 2 diabetes Cardiac Home medications include (PER EPIC) : Furosemide 20 mg daily Losartan 12.5 mg daily Imdur 30 mg daily Potassium 10 MEQ daily Carvedilol 3.125 mg twice daily Atorvastatin 40 mg daily Aspirin 81 mg daily Eliquis discontinued 09/18/2023 due to frequent falls Allergies Allergy/AdvReac Type Severity Reaction Status Date / Time No Known Allergies Allergy Verified 09/24/23 01:22 Home Medications Medication Instructions Recorded Confirmed Type bimatoprost 0.01 % eye drops 1 drp OPB HS 12/31/19 09/24/23 History (Rosibel) brimonidine 0.2 % eye drops 1 drp OPL TID 12/31/19 09/24/23 History carvedilol 3.125 mg tablet 3.125 mg PO AMHS 02/04/21 09/24/23 History cyanocobalamin (vitamin B-12) 1,000 mcg PO QAM 02/04/21 09/24/23 History 1,000 mcg tablet isosorbide mononitrate 30 mg 30 mg PO QAM #30 tabs 03/11/21 09/24/23 Rx tablet,extended release 24 hr folic acid 1 mg tablet 1 mg PO HS 05/23/21 09/24/23 History atorvastatin 40 mg tablet 40 mg PO QAM 07/14/21 09/24/23 History nitroglycerin 0.4 mg sublingual 0.4 mg sublingual UD PRN Angina 07/14/21 09/24/23 History tablet potassium chloride 10 mEq 10 meq PO HS 07/14/21 09/24/23 History tablet,extended release (Klor-Con) ferrous sulfate 325 mg (65 mg 65 mg PO BID 05/24/23 09/24/23 History iron) tablet finasteride 5 mg tablet 5 mg PO QAM 05/24/23 09/24/23 History losartan 25 mg tablet 12.5 mg PO QAM 05/24/23 09/24/23 History metformin 500 mg tablet,extended 500 mg PO QAM 05/24/23 09/24/23 History release 24 hr Magic Cup 1 ea PO HS 09/24/23 09/24/23 History acetaminophen 325 mg tablet 650 mg PO Q4 PRN Fever Or Pain 09/24/23 09/24/23 History (Tylenol) aspirin 81 mg tablet,delayed 81 mg PO DAILY 09/24/23 09/24/23 History release dorzolamide 22.3 mg-timolol 6.8 1 drp OPL TID 09/24/23 09/24/23 History mg/mL eye drops food supplemt, lactose-reduced 1 ea PO TID 09/24/23 09/24/23 History furosemide 20 mg tablet (Lasix) 20 mg PO DAILY 09/24/23 09/24/23 History mirtazapine 15 mg tablet 15 mg PO HS 09/24/23 09/24/23 History sennosides 8.6 mg-docusate sodium 1 tab-cap PO HS 09/24/23 09/24/23 History 50 mg tablet (Senna with Docusate Sodium) sennosides 8.6 mg-docusate sodium 2 tab-cap PO DAILY 09/24/23 09/24/23 History 50 mg tablet (Senna-S) tramadol 50 mg tablet 50 mg PO Q6H PRN Pain 09/24/23 09/24/23 History Patient History Medical History Acute dehydration Acute UTI (urinary tract infection) Anemia Aortic stenosis Atrial fibrillation Bradycardia CAD (coronary artery disease) CHF (congestive heart failure) CKD (chronic kidney disease), stage III Dizziness Elevated troponin I level Glaucoma Head trauma HLD (hyperlipidemia) HTN (hypertension) Mitral regurgitation Neuropathy On anticoagulant therapy Walker as ambulation aid Surgical History History of bilateral cataract extraction History of colonoscopy History of coronary artery bypass graft History of open reduction and internal fixation (ORIF) procedure S/P cardiac pacemaker procedure Family History Mother Heart disease Father Prostate cancer Other No family history of adverse response to anesthesia Social History Smoking Status: Never smoker Tobacco Type: Pipe Second Hand Exposure: No; Do You Dip or Chew Tobacco: No; Tobacco Cessation Education Requested by Patient: No Hx Alcohol Use: No Hx Substance Use: No Preferred Language: Belarusian Communication Ability: Effective Communication Ability Comment: pt does sign own consents Rn Emergency Room Required: No Beliefs That Will Affect Care: None marital status: Single Current Living Situation: [facility] Current Living Situation Comment: [facility] How many Children do You have: 0 Other Information That Helps Us Care for You: No Feels Safe at Home: Yes Safety Concerns: Feels Safe At This Time Assistive Devices: Walker Review of Systems Review of Systems: All systems reviewed & are unremarkable except as noted in HPI & below (Limited due to being a poor historian) Physical Exam Constitutional: + ill appearing and + thin; no acute dis tress Neck: normal visual inspection and trachea midline Respiratory: + cough (Moist productive); no labored b reathing and not tachypneic Auscultation: + crackles, + rales, + rhonchi and + wheezes Cardiovascular: Heart Sounds: normal S1, normal S2 and + murmur (+2/6 systolic, distant heart sounds ) Vessels: no JVD Extremities: no edema Chest (Breasts): Chest: + pacemaker (left chest ) Gastrointestinal (Abdomen): normal bowel sounds, soft, nontender, no hepatosplenomegaly Skin: no rashes, warm and dry Psychiatric: Orientation: alert, oriented to person and cooperative Results & Data Vital Signs (Past 12 Hours) Vital Signs Temp Pulse Pulse Resp BP BP Pulse Ox 09/24/23 07:59 61 09/24/23 05:00 60 17 100/38 L 97 09/24/23 04:20 09/24/23 04:20 36.8 C 68 20 101/43 L 94 09/24/23 04:20 62 20 100/40 L 95 09/24/23 03:32 60 20 79/50 L 96 09/24/23 03:32 09/24/23 03:05 109 H 09/24/23 03:00 60 20 84/48 L 96 09/24/23 01:30 90 22 100/41 L 98 09/24/23 01:00 60 09/24/23 00:00 80 22 117/54 L 98 09/23/23 22:50 60 23 93/44 L 93 09/23/23 21:33 94 09/23/23 21:21 90 09/23/23 21:21 09/23/23 21:21 36.4 C L 60 25 H 149/56 H 90 09/23/23 21:10 60 Pulse Ox O2 Del Method O2 Del Method O2 Flow Rate O2 Flow Rate 09/24/23 07:59 09/24/23 05:00 Nasal Cannula 3 09/24/23 04:20 Nasal Cannula 3 09/24/23 04:20 Nasal Cannula 3 09/24/23 04:20 Nasal Cannula 3 09/24/23 03:32 Nasal Cannula 3 09/24/23 03:32 95 Nasal Cannula 3 09/24/23 03:05 09/24/23 03:00 Nasal Cannula 3 09/24/23 01:30 Nasal Cannula 3 09/24/23 01:00 09/24/23 00:00 Nasal Cannula 6 09/23/23 22:50 Nasal Cannula 6 09/23/23 21:33 Nasal Cannula 6 09/23/23 21:21 Nasal Cannula 4 09/23/23 21:21 Nasal Cannula 4 09/23/23 21:21 Nasal Cannula 4 09/23/23 21:10 Laboratory Results Cardiac Enzymes 09/23/23 09/23/23 09/24/23 Range/Units 23:27 Unknown 04:09 AST 18 (13-39) U/L Troponin I High Sens 25.8 H 28.9 H 36.1 H D (0-20) pg/ml B-Natriuretic Peptide 483 H (0-100) pg/ml Coagulation 09/23/23 Range/Units Unknown PT 13.0 H (9.0-12.0) Seconds APTT 29.6 (21.0-31.0) Seconds B-Natriuretic Peptide 483 H (0-100) pg/ml CBC 09/23/23 09/24/23 Range/Units Unknown 04:09 WBC 11.98 H 11.55 H (4.8-10.8) K/ul RBC 3.33 L 3.14 L (4.70-6.10) M/uL Hgb 9.9 L 9.4 L (14.0-18.0) g/dl Hct 31.9 L 29.3 L (42.0-52.0) % Plt Count 324 240 (130-400) K/uL Neut # (Auto) 9.36 H 10.09 H (1.40-6.50) K/uL Lymph # (Auto) 1.44 0.69 L (1.20-3.40) K/uL [place] # (Auto) 0.60 H 0.70 H (0.11-0.59) K/uL Eos # (Auto) 0.47 0.01 (0.00-0.50) K/uL Baso # (Auto) 0.06 0.02 (0.00-0.20) K/uL Comprehensive Metabolic Panel 09/23/23 09/24/23 Range/Units Unknown 04:09 Sodium 140 142 (136-145) mmol/L Potassium 4.0 4.4 (3.5-5.1) mmol/L Chloride 107 110 H (98-107) mmol/L Carbon Dioxide 25 21 (21-32) mmol/L BUN 31 H 31 H (6-23) mg/dl Creatinine 1.35 1.37 (0.6-1.4) mg/dl Glucose 192 H 123 H (70-99(Fasting)) mg/dl Calcium 9.0 8.9 (8.6-10.3) mg/dl AST 18 (13-39) U/L ALT 9 (7-52) U/L Alkaline Phosphatase 68 (34-104) U/L Total Protein 6.9 (6.0-8.3) gm/dl Albumin 3.1 L (3.4-5.0) gm/dl Intake and Output 09/23/23 09/24/23 09/24/23 22:59 06:59 14:59 Intake Total 200 / 200 100 / 100 Balance 200 / 200 100 / 100 Intake: IV 100 / 100 100 / 100 Doxycycline Hyclate 100 mg In 100 / 100 Dextrose 5% Mini-B 100 ml @ 50 mls/hr IV Q12H [facility] Rx#:[id number] Piperacillin/Tazobactam 4.5 gm 100 / 100 In 100 ml @ 200 mls/hr IV NOW ONE Rx#:[id number] Oral 100 / 100 Other: Weight 63 kg 63 kg Weight Measurement Method Chair Scale Built in [facility] (6) Aortic stenosis Cardiac valve disease etiology: nonrheumatic Qualified Code(s): I35.0 - Nonrheumatic aortic (valve) stenosis
[2023-09-24] MEDS ORDERED: NON-FORMULARY MEDICATION (Food Supplemt, Lactose-Reduced Liquid) PO SCH (09:00)
[2023-09-24] MEDS: ATORVASTATIN 40 MG TAB PO SCH (09:48)
[2023-09-24] MEDS: CYANOCOBALAMIN (B-12) 500 MCG TABLET PO SCH (09:48)
[2023-09-24] MEDS: ASPIRIN 81 MG ECTAB PO SCH (09:48)
[2023-09-24] MEDS: FERROUS SULFATE 325 MG TAB PO SCH ×2 (09:49→20:54)
[2023-09-24] MEDS: FINASTERIDE 5 MG TAB PO SCH (09:49)
[2023-09-24] MEDS: DOCUSATE SODIUM/SENNA 50/8.6MG TAB PO SCH ×2 (09:49→20:54)
[2023-09-24] MEDS: INSULIN ASPART PER UNIT CHARGE SC SCH ×4 (10:11→20:56)
[2023-09-24] MEDS: BRIMONIDINE TARTRATE 0.2% 5ML OPL SCH ×3 (10:12→20:55)
[2023-09-24] MEDS: DORZOLAMIDE/TIMOLOL 22.3/6.8MG/ML 10 ML BTL OPL SCH ×3 (10:12→20:55)
--- NOTE | 2023-09-24 12:31 | Pharmacy Report ---
Pharmacy PK ABX Note - Date of Service September 24, 2023 - Assessment and Plan Assessment 88 year old M receiving vancomycin/Zosyn for treatment of pnuemonia. Pertinent microbiologic data includes: Positive MRSA Nasal Swab, Day # 2 of antimicrobial therapy. Plan Vancomycin * Loading dose: 1250 mg IV x 1 * Regimen is predicted to achieve target AUC/CLAUDY of 400-600 mg/L.hr * Random level ordered for: 09/25 with AM labs * Will draw level tomorrow AM to better access pharmacokinetics due difficulty in determining adequate maintenance dosing (advanced age, small body weight, slightly above baseline creatinine). Pharmacy will continue to follow and will adjust dose/frequency as necessary. Thank you. Pharmacy has transitioned to AUC monitoring for vancomycin. AUC/CLAUDY is the preferred PK/PD target and is associated with decreased risk of nephrotoxicity compared to traditional trough targets.
--- NOTE | 2023-09-24 14:30 | Pulmonary Consultation ---
Date of Consultation September 24, 2023 Assessment & Plan (1) Acute on chronic combined systolic (congestive) and diastolic (congestive) heart failure: (2) Permanent atrial fibrillation: (3) Pleural effusion: (4) Acute hypoxic respiratory failure: Plan CT chest 09/23/2023 personally reviewed: Patchy alveolar opacities appreciated bilaterally Bilateral pleural effusion, larger on the left, small on the right Compression atelectasis of the left lower lobe, questionable consolidative process of the lingula Moderate hiatal hernia No significant mediastinal lymphadenopathy -- Acute hypoxic respiratory failure Likely secondary to pleural effusion, L>R Respiratory bio fire negative for everything Nasal MRSA positive, procalcitonin 0.08 BNP 483 QTc 507 with paced rhythm --Aspiration pneumonia Appreciated on videofluoroscopic evaluation Continue with antibiotic -- History of A-fib Plan: Continue with Will try to get in touch with family and see if you are able to do thoracentesis later today or tomorrow Please note the above document was generated using voice recognition software. It may contain grammatical, syntax or spelling errors.Any formal questions or concerns about the content, text or information contained within the body of this dictation should be directly addressed to the provider for clarification., History of Present Illness Attending Physician: Bernabe Phillips MD History of Present Illness 88-year-old male present to the hospital with complaints of shortness of breath Past medical history: Diabetes, dyslipidemia, systolic CHF, hypertension, aortic stenosis, coronary artery disease s/p CABG, A-fib status post pacemaker Pulmonary consulted for pleural effusion At the time of examination patient was saturating 96-97% on 2 L nasal cannula He was not in any respiratory distress Please make note he is hard to hear. Denied any headache, no nausea, no vomiting Occasional cough. He is unsure what color is the phlegm Denies any fever or chills at home No dysuria, no diarrhea. No nausea vomiting He is unsure when was the last time he took his blood thinner Social history: Used to smoke pipes, quit long time ago No history of lung cancer in the family Allergies Allergy/AdvReac Type Severity Reaction Status Date / Time No Known Allergies Allergy Verified 09/24/23 01:22 Home Medications Medication Instructions Recorded Confirmed Type bimatoprost 0.01 % eye drops 1 drp OPB HS 12/31/19 09/24/23 History (Rosibel) brimonidine 0.2 % eye drops 1 drp OPL TID 12/31/19 09/24/23 History carvedilol 3.125 mg tablet 3.125 mg PO AMHS 02/04/21 09/24/23 History cyanocobalamin (vitamin B-12) 1,000 mcg PO QAM 02/04/21 09/24/23 History 1,000 mcg tablet isosorbide mononitrate 30 mg 30 mg PO QAM #30 tabs 03/11/21 09/24/23 Rx tablet,extended release 24 hr folic acid 1 mg tablet 1 mg PO HS 05/23/21 09/24/23 History atorvastatin 40 mg tablet 40 mg PO QAM 07/14/21 09/24/23 History nitroglycerin 0.4 mg sublingual 0.4 mg sublingual UD PRN Angina 07/14/21 09/24/23 History tablet potassium chloride 10 mEq 10 meq PO HS 07/14/21 09/24/23 History tablet,extended release (Klor-Con) ferrous sulfate 325 mg (65 mg 65 mg PO BID 05/24/23 09/24/23 History iron) tablet finasteride 5 mg tablet 5 mg PO QAM 05/24/23 09/24/23 History losartan 25 mg tablet 12.5 mg PO QAM 05/24/23 09/24/23 History metformin 500 mg tablet,extended 500 mg PO QAM 05/24/23 09/24/23 History release 24 hr Magic Cup 1 ea PO HS 09/24/23 09/24/23 History acetaminophen 325 mg tablet 650 mg PO Q4 PRN Fever Or Pain 09/24/23 09/24/23 History (Tylenol) aspirin 81 mg tablet,delayed 81 mg PO DAILY 09/24/23 09/24/23 History release dorzolamide 22.3 mg-timolol 6.8 1 drp OPL TID 09/24/23 09/24/23 History mg/mL eye drops food supplemt, lactose-reduced 1 ea PO TID 09/24/23 09/24/23 History furosemide 20 mg tablet (Lasix) 20 mg PO DAILY 09/24/23 09/24/23 History mirtazapine 15 mg tablet 15 mg PO HS 09/24/23 09/24/23 History sennosides 8.6 mg-docusate sodium 1 tab-cap PO HS 09/24/23 09/24/23 History 50 mg tablet (Senna with Docusate Sodium) sennosides 8.6 mg-docusate sodium 2 tab-cap PO DAILY 09/24/23 09/24/23 History 50 mg tablet (Senna-S) tramadol 50 mg tablet 50 mg PO Q6H PRN Pain 09/24/23 09/24/23 History Patient History Medical History Acute dehydration Acute UTI (urinary tract infection) Anemia Aortic stenosis Atrial fibrillation Bradycardia CAD (coronary artery disease) CHF (congestive heart failure) CKD (chronic kidney disease), stage III Dizziness Elevated troponin I level Glaucoma Head trauma HLD (hyperlipidemia) HTN (hypertension) Mitral regurgitation Neuropathy On anticoagulant therapy Walker as ambulation aid Surgical History History of bilateral cataract extraction History of colonoscopy History of coronary artery bypass graft History of open reduction and internal fixation (ORIF) procedure S/P cardiac pacemaker procedure Family History Mother Heart disease Father Prostate cancer Other No family history of adverse response to anesthesia Social History Smoking Status: Never smoker Tobacco Type: Pipe Second Hand Exposure: No; Do You Dip or Chew Tobacco: No; Tobacco Cessation Education Requested by Patient: No Hx Alcohol Use: No Hx Substance Use: No Preferred Language: Tanzanian Communication Ability: Effective Communication Ability Comment: pt does sign own consents Director Of Blood Required: No Beliefs That Will Affect Care: None marital status: Single Current Living Situation: [facility] Current Living Situation Comment: [facility] Independent living How many Children do You have: 0 Other Information That Helps Us Care for You: No Feels Safe at Home: Yes Safety Concerns: Feels Safe At This Time Assistive Devices: None Review of Systems 2 Review of Systems: All systems reviewed & are unremarkable except as noted in HPI & below Physical Exam 2 Physical Exam: Constitutional: No acute distress HEENT: EOMI, PERRLA Respiratory system: Decreased air entry on the left side, no wheeze, no rhonchi, positive crackles bilateral lower lobes CVS: S1-S2 positive, positive 3 out of 6 systolic murmur appreciated best at the aorta Abdomen: Soft, nontender, nondistended, positive bowel sounds x4 Extremities: +2 pulses bilaterally radialis/ dorsalis pedis, no cyanosis, minimal pitting edema bilateral lower extremity Neuro: Awake alert oriented x3 Psych: Normal mood and affect G/U: No Martinez Skin: no rashes, warm and dry Lymphatic: no cervical or axillary lymphadenopathy Results & Data Results & Data Vital Signs (Past 12 Hours) Vital Signs Temp Pulse Pulse Resp BP Pulse Ox Pulse Ox 09/24/23 07:59 61 09/24/23 05:00 60 17 100/38 L 97 09/24/23 04:20 09/24/23 04:20 36.8 C 68 20 101/43 L 94 09/24/23 04:20 62 20 100/40 L 95 09/24/23 03:32 60 20 79/50 L 96 09/24/23 03:32 95 09/24/23 03:05 109 H 09/24/23 03:00 60 20 84/48 L 96 O2 Del Method O2 Del Method O2 Flow Rate O2 Flow Rate 09/24/23 07:59 09/24/23 05:00 Nasal Cannula 3 09/24/23 04:20 Nasal Cannula 3 09/24/23 04:20 Nasal Cannula 3 09/24/23 04:20 Nasal Cannula 3 09/24/23 03:32 Nasal Cannula 3 09/24/23 03:32 Nasal Cannula 3 09/24/23 03:05 09/24/23 03:00 Nasal Cannula 3 Laboratory Results 09/24/23 04:09 09/24/23 04:09 PG Care Time/CCT Total # of Minutes Spent Total Time Spent with Patient: Total time spent is greater than 50% in coordination of care (as documented) at patient's floor/unit and/or counseling patient: Coding Level of Care Code 94001 INT INP/OBS CARE 3/75MIN Diagnoses Acute on chronic combined systolic (congestive) and diastolic (congestive) heart failure I50.43 Permanent atrial fibrillation I48.21 Pleural effusion J90 Acute hypoxic respiratory failure J96.01
[2023-09-24] MEDS: BIMATOPROST 0.01% OP SOLN 2.5 ML BTL OPB SCH (15:16)
--- NOTE | 2023-09-24 15:27 | Fluoroscopy Report ---
VIDEO SWALLOW STUDY CLINICAL HISTORY: Aspiration. COMPARISON STUDY: Video swallow study dated 05/04/2022. FLUOROSCOPY TIME: 2.1 minutes. Ka,r: 22.4 mGy FINDINGS: Fluoroscopic guidance was provided to the department of speech pathology. The patient consu med barium impregnated pudding, thickened liquids, and thin barium while the swallowing mechanism was observed real-time. Silent aspiration was seen with thin barium and the nectar thick liquid textures . No penetration was seen with the pudding texture. Disordered swallowing was observed in the examina tion. IMPRESSION: Aspiration was seen with thin barium and the nectar thick liquid textures. See dedicated speech pathology report for detailed findings and recommendations. Dictated: 09/24/2023 2:50 PM Transcribed: 09/24/2023 3:03 PM Nicolasa [id number] [email or web address] [id number] Electronically signed by: Eros العلي M.D. 09/24/2023 3:24 PM
--- NOTE | 2023-09-24 15:57 | Communication Note ---
Date of Service: September 24, 2023 Patient presented from [facility] with shortness of breath. Chest x-ray shows left-sided pleural effusion and lung trapping Started on antibiotics. Oxygen requirement downtrending. Pulmonology on board; appreciate recommendation. Constitutional: Awake, oriented to self. Not in distress Respiratory: No breath sounds on left lung base. No wheezes or crackles present Cardiovascular: RRR, no murmur, no edema Vessels: no JVD or carotid bruit Chest: normal inspection of chest Abdomen: Soft nontender Musculoskeletal: no cyanosis or clubbing, extremities motor strength 5/5 Skin: no rashes, warm and dry normal turgor Neurologic: Grossly intact Psychiatric: A+Ox1, euthymic affect
--- NOTE | 2023-09-24 19:28 | Electrocardiogram Report ---
Test Reason : Blood Pressure : / mmHG Vent. Rate : 065 BPM Atrial Rate : 065 BPM P-R Int : 000 ms QRS Dur : 152 ms QT Int : 488 ms P-R-T Axes : 000 -61 099 degrees QTc Int : 507 ms Ventricular-paced rhythm with occasional Premature ventricular complexes Abnormal ECG When compared with ECG of 24-MAY-2023 10:14, Premature ventricular complexes are now Present Vent. rate has increased BY 4 BPM Confirmed by Conner Gallegos ([id number]) on 09/24/2023 7:28:49 PM Referred By: REFERRED SELF Confirmed By:Basilio Gallegos
[2023-09-24] MEDS: POTASSIUM CHLORIDE 10 MEQ TABCR PO SCH (20:54)
[2023-09-24] MEDS: MIRTAZAPINE TAB 15 MG TAB PO SCH (20:54)
[2023-09-24] MEDS: FOLIC ACID 1 MG TAB PO SCH (20:54)
[2023-09-25 05:57] LABS: Basophils # (auto) 0.02 K/uL (0.00-0.20); Basophils % (auto) 0.2 %; Eosinophils % (auto) 0.8 %; Hematocrit (blood only) 25.8 % (42.0-52.0); Hemoglobin 8.2 g/dl (14.0-18.0); Immature Granulocytes # (auto) 0.09 K/uL (0.01-0.20); Immature Granulocytes % (auto) 0.7 %; Lymphocytes # (auto) 1.43 K/uL (1.20-3.40); Lymphocytes % (auto) 11.1 %; Mean Corpuscular Hemoglobin 29.9 pg (25.0-34.0); Mean Corpuscular Hgb Conc 31.8 g/dL (32.0-36.0); Mean Corpuscular Volume 94.2 fL (80.0-100.0); Mean Platelet Volume 10.1 fL (9.4-12.4); Monocytes % (auto) 5.4 %; Neutrophils # (auto) 10.56 K/uL (1.40-6.50); Neutrophils % (auto) 81.8 %; Platelet Count 220 K/uL (130-400); RDW Coefficient of Variation 18.6 % (11.5-14.5); RDW Standard Deviation 62.9 fL (36.4-46.3); Red Blood Count 2.74 M/uL (4.70-6.10)
[2023-09-25] MEDS: PIPERACILLIN/TAZOBACTAM 4.5 GM in DEXTROSE 5% MINI-B 100 ML IV SCH ×2 (06:22→14:21)
[2023-09-25 06:25] LABS: BUN Creatinine Ratio 20.6 (10-20); Calcium 8.4 mg/dl (8.6-10.3); Creatinine Clr Calc Pharmacy 24.3 ml/min; Est GFR (African American) 36.2 ml/min; Est GFR (Non-African American) 31.2 ml/min; Potassium 4.5 mmol/L (3.5-5.1)
[2023-09-25] MEDS ORDERED: VANCOMYCIN HCL 1,000 MG in SODIUM CHLORIDE 0.9% 250 ML IV ONE (08:15)
--- NOTE | 2023-09-25 08:17 | Pulmonology Progress Note ---
Date of Service September 25, 2023 Assessment & Plan (1) Acute on chronic combined systolic (congestive) and diastolic (congestive) heart failure: (2) Permanent atrial fibrillation: (3) Pleural effusion: (4) Acute hypoxic respiratory failure: Plan CT chest 09/23/2023 personally reviewed: Patchy alveolar opacities appreciated bilaterally Bilateral pleural effusion, larger on the left, small on the right Compression atelectasis of the left lower lobe, questionable consolidative process of the lingula Moderate hiatal hernia No significant mediastinal lymphadenopathy -- Acute hypoxic respiratory failure Likely secondary to pleural effusion, L>R Respiratory bio fire negative for everything Nasal MRSA positive, procalcitonin 0.08 BNP 483 QTc 507 with paced rhythm --Aspiration pneumonia Appreciated on videofluoroscopic evaluation Continue with antibiotic -- History of A-fib Last dose of apixaban was 09/18/2023 Plan: I spoke with patient's [id number] who has the POA. He is agreeable to have thoracentesis done for the patient. Risk and benefit of the procedure were explained to Martinez Sosa [phone], he is agreeable to the procedure. Please note the above document was generated using voice recognition software. It may contain grammatical, syntax or spelling errors.Any formal questions or concerns about the content, text or information contained within the body of this dictation should be directly addressed to the provider for clarification., Admission and Anticipated Discharge Date Admission Date: September 24, 2023 Subjective Patient seen and examined at bedside. No acute distress, no adverse events overnight He was denied any chest discomfort. Denied any shortness of breath No headache, no nausea, no vomiting He is hard to hear Fair appetite Review of Systems 2 Review of Systems: All systems reviewed & are unremarkable except as noted in Subjective Physical Exam 2 Physical Exam: Constitutional: No acute distress HEENT: EOMI, PERRLA, hard to hear Respiratory system: Decreased air entry on the left side, no wheeze, no rhonchi, positive crackles bilateral lower lobes CVS: S1-S2 positive, positive 3 out of 6 systolic murmur appreciated best at the aorta Abdomen: Soft, nontender, nondistended, positive bowel sounds x4 Extremities: +2 pulses bilaterally radialis/ dorsalis pedis, no cyanosis, minimal pitting edema bilateral lower extremity Neuro: Awake alert oriented to self Psych: Normal mood and affect G/U: No Martinez Skin: no rashes, warm and dry Lymphatic: no cervical or axillary lymphadenopathy Results & Data Results & Data Vital Signs (Past 12 Hours) Vital Signs Temp Pulse Pulse Resp BP Pulse Ox Pulse Ox 09/25/23 08:00 36.7 C 65 18 124/61 96 09/25/23 07:19 60 09/25/23 03:32 94 09/25/23 02:35 36.6 C 64 16 110/52 L 95 09/24/23 22:32 36.8 C 61 18 110/54 L 93 09/24/23 22:01 60 O2 Del Method O2 Del Method O2 Flow Rate O2 Flow Rate 09/25/23 08:00 Nasal Cannula 2 09/25/23 07:19 09/25/23 03:32 Nasal Cannula 3 09/25/23 02:35 Nasal Cannula 2 09/24/23 22:32 Nasal Cannula 2 09/24/23 22:01 Laboratory Results 09/25/23 05:26 09/25/23 05:26 PG Care Time/CCT Total # of Minutes Spent Total Time Spent with Patient: Total time spent is greater than 50% in coordination of care (as documented) at patient's floor/unit and/or counseling patient: Coding Level of Care Code 41466 SUB INP/OBS CARE 3/50MIN Diagnoses Acute on chronic combined systolic (congestive) and diastolic (congestive) heart failure I50.43 Permanent atrial fibrillation I48.21 Pleural effusion J90 Acute hypoxic respiratory failure J96.01
[2023-09-25] MEDS: INSULIN ASPART PER UNIT CHARGE SC SCH ×4 (08:57→20:32)
--- NOTE | 2023-09-25 09:18 | Pharmacy Report ---
Pharmacy PK ABX Note - Date of Service September 25, 2023 - Assessment and Plan Assessment 88 year old M receiving vancomycin/Zosyn for treatment of pneumonia. Pertinent microbiologic data includes: Positive MRSA Nasal Swab. SCr trending up (1.33 -->1.89mg/dL). Day # 2 of antimicrobial therapy. Plan Vancomycin * Loading dose: 1250 mg IV x 1 * Random level this AM, 9.8mcg/mL (~20h level), subtherapeutic. * Re-dose with 1gm (~15mg/kg) IV X 1. Repeat level in AM. Will continue to dose by level d/t worsening renal function. Pharmacy will continue to follow and will adjust dose/frequency as necessary. Thank you.
[2023-09-25] MEDS: ATORVASTATIN 40 MG TAB PO SCH (10:43)
[2023-09-25] MEDS: ASPIRIN 81 MG ECTAB PO SCH (10:43)
[2023-09-25] MEDS: DOCUSATE SODIUM/SENNA 50/8.6MG TAB PO SCH ×2 (10:43→20:30)
[2023-09-25] MEDS: FERROUS SULFATE 325 MG TAB PO SCH ×2 (10:43→20:28)
[2023-09-25] MEDS: CYANOCOBALAMIN (B-12) 500 MCG TABLET PO SCH (10:43)
[2023-09-25] MEDS: DORZOLAMIDE/TIMOLOL 22.3/6.8MG/ML 10 ML BTL OPL SCH ×3 (10:43→20:25)
[2023-09-25] MEDS: BRIMONIDINE TARTRATE 0.2% 5ML OPL SCH ×3 (10:43→20:26)
[2023-09-25] MEDS: FINASTERIDE 5 MG TAB PO SCH (10:44)
--- NOTE | 2023-09-25 12:25 | Cardiology Progress Note ---
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 Rich only 8 months of battery life per office visit note 08/2023 Permanent atrial fibrillation, Eliquis discontinued due to falls 09/18/[address] Rich (6) Aortic stenosis: Plan: Moderate per echo dated 03/04/2021 Plan IMPRESSION: Medically complex 88-year-old male who presented to [facility] emergency department due to acute hypoxic respiratory failure. Found to have a large left pleural effusion and possible aspiration pneumonia. Known history of permanent atrial fibrillation status post permanent pacemaker. PLAN: Acute on chronic CHF/Left pleural effusion: Hypoxia likely multifactorial secondary to possible aspiration pneumonia with superimposed acute on chronic CHF. Large left pleural effusion noted on CT and chest x-ray. Pulm consulted and po ssible thoracentesis later today or tomorrow. Consider resuming low dose furosemide if BP allows today Possible aspiration pneumonia, antibiotics per primary team. NPO until evaluated by speech. Permanent atrial fibrillation/permanent pacemaker ([employer]): Patient ventricular paced in the 60s with an underlying rhythm of atrial fibrillation--outpatient records suggest device approaching NED--device interrogation ordered for further evaluation (Pending) Not on anticoagulation due to frequent falls--Eliquis discontinued 09/18/2023 Carvedilol on hold due to hypotension. Ischemic heart disease: Goal-directed medical therapy with carvedilol, losartan, and Imdur on hold due to hypotension. Continue aspirin and statin. Moderate to possible severe aortic stenosis per echo during this admission -Would recommend conservative medical management given multiple comorbidities Case discussed with Dr. Ferrari-- will follow. I spent a total of 35 minutes on the date of service in preparation, delivery, and documentation of the care provided to this patient, excluding any time spent in the performance of separately billed services. Admission and Anticipated Discharge Date Admission Date: September 24, 2023 Supervising Physician Co-Signing Physician Notes 88-year-old patient admitted with multifactorial acute respiratory failure with hypoxia. Left-sided thoracentesis performed today with removal of 1200 cc fluid. Patient clinically improved. Poor historian. Offers no complaints. PE: VSS. General: NAD, awake and alert. Hearing impaired. Heart: Irregular rhythm, normal S1-S2, 2/6 systolic ejection murmur heard best at the right second costal space. Pulmonary: No rhonchi or wheeze. Diminished breath sounds at the left base. Extremities: No edema. A/P: Agree with above PA-C history, physical exam, assessment and plan. Clinically improved status post thoracentesis. Consider resume low-dose furosemide in a.m. Rate controlled atrial fibrillation on telemetry. Anticoagulation discontinued due to fall risk. Carvedilol carvedilol discontinued in favor of Toprol-XL due to borderline hypotension. Pacemaker possibly approaching NED per outpatient records. Await interrogation. Continue aspirin and statin. Antibiotics and aspiration precautions as per internal medicine. Subjective Patient resting in bed comfortably. Patient hard of hearing and not able to communicate well. Poor historian. Appears comfortable. Review of Systems Review of Systems: Unobtainable due to cognitive status Physical Exam Constitutional: + ill appearing and + thin; no acute dis tress Neck: normal visual inspection and trachea midline Respiratory: no labored breathing Auscultation: + crackles and + rhonchi Cardiovascular: Heart Sounds: normal S1, normal S2 and + murmur (+2/6 systolic, distant heart sounds ) Vessels: no JVD Extremities: no edema Chest (Breasts): Chest: + pacemaker (left chest ) Gastrointestinal (Abdomen): normal bowel sounds, soft, nontender, no hepatosplenomegaly Skin: no rashes, warm and dry Psychiatric: Orientation: alert, oriented to person and cooperative Results & Data Vital Signs (Past 12 Hours) Vital Signs Temp Pulse Pulse Resp BP Pulse Ox Pulse Ox 09/25/23 11:30 36.8 C 74 20 112/64 97 09/25/23 08:12 09/25/23 08:00 36.7 C 65 18 124/61 96 09/25/23 07:19 60 09/25/23 03:32 94 09/25/23 02:35 36.6 C 64 16 110/52 L 95 O2 Del Method O2 Del Method O2 Flow Rate O2 Flow Rate 09/25/23 11:30 Nasal Cannula 2 09/25/23 08:12 Room Air 09/25/23 08:00 Nasal Cannula 2 09/25/23 07:19 09/25/23 03:32 Nasal Cannula 3 09/25/23 02:35 Nasal Cannula 2 Laboratory Results Cardiac Enzymes 09/24/23 Range/Units 18:55 Troponin I High Sens 35.1 H (0-20) pg/ml CBC 09/25/23 Range/Units 05:26 WBC 12.90 H (4.8-10.8) K/ul RBC 2.74 L (4.70-6.10) M/uL Hgb 8.2 L (14.0-18.0) g/dl Hct 25.8 L (42.0-52.0) % Plt Count 220 (130-400) K/uL Neut # (Auto) 10.56 H (1.40-6.50) K/uL Lymph # (Auto) 1.43 (1.20-3.40) K/uL Menard # (Auto) 0.70 H (0.11-0.59) K/uL Eos # (Auto) 0.10 (0.00-0.50) K/uL Baso # (Auto) 0.02 (0.00-0.20) K/uL Comprehensive Metabolic Panel 09/25/23 Range/Units 05:26 Sodium 141 (136-145) mmol/L Potassium 4.5 (3.5-5.1) mmol/L Chloride 109 H (98-107) mmol/L Carbon Dioxide 22 (21-32) mmol/L BUN 39 H (6-23) mg/dl Creatinine 1.89 H D (0.6-1.4) mg/dl Glucose 101 H (70-99(Fasting)) mg/dl Calcium 8.4 L (8.6-10.3) mg/dl Intake and Output 09/24/23 09/25/23 09/25/23 22:59 06:59 14:59 Intake Total 320 / 1185 140 / 1185 370 / 370 Output Total 50 / 50 Balance 270 / 1135 140 / 1135 370 / 370 Intake: IV 100 / 925 100 / 925 370 / 370 Piperacillin/Tazobactam 4.5 gm 100 / 300 100 / 300 100 / 100 In Dextrose 5% Mini-B 100 ml @ 25 mls/hr IV Q8H [facility] Rx#: [id number] Vancomycin HCl 1,000 mg In 270 / 270 Sodium Chloride 0.9% 250 ml @ 200 mls/hr IV NOW ONE Rx#: [id number] Oral 220 / 260 40 / 260 Output: Urine 50 / 50 Other: # Unmeasured Voids 1 1 Weight 63 kg 62 kg Weight Measurement Method Built in [facility] Diagnostic Findings Telemetry reviewed: afib with underlying ventricular pacing in the 60's. Echo reviewed from 09/24/23: Normal LVEF at 55-60% Mild concentric LVH aortic valve is calcified. Moderate is suspected mild AI Moderate to severe MR Estimated systolic pulm pressure is 57 mmHg Large left pleural effusion. Medications Administered Current Inpatient Medications Acetaminophen (Acetaminophen 325 Mg Tab) 650 mg PO Q4H PRN PRN Reason: Pain or Fever Stop: 10/24/23 03:31 Aspirin (Aspirin 81 Mg Ectab) 81 mg PO DAILY [facility] Stop: 10/24/23 08:59 Last Admin: 09/25/23 10:43 Dose: Not Given Atorvastatin Calcium (Atorvastatin 40 Mg Tab) 40 mg PO QAM [facility] Stop: 10/24/23 08:59 Last Admin: 09/25/23 10:43 Dose: Not Given Bimatoprost (Bimatoprost 0.01% Op Soln 2.5 Ml Btl) 1 drops OPB HS [facility] Stop: 10/24/23 20:59 Last Admin: 09/24/23 15:16 Dose: 1 drops Brimonidine Tartrate (Brimonidine Tartrate 0.2% 5ml) 1 drops OPL TID [facility] Stop: 10/24/23 08:59 Last Admin: 09/25/23 10:43 Dose: Not Given Cyanocobalamin (Cyanocobalamin (B-12) 500 Mcg Tablet) 1,000 mcg PO QAM [facility] Stop: 10/24/23 08:59 Last Admin: 09/25/23 10:43 Dose: Not Given Dextrose (Dextrose 50% 50 Ml Syringe) 25 - 50 ml IV UD PRN; Protocol PRN Reason: Hypoglycemia Protocol Stop: 10/24/23 03:31 Dorzolamide/Timolol (Dorzolamide/Timolol 22.3/6.8mg/Ml 10 Ml Btl) 1 drops OPL TID [facility] Stop: 10/24/23 08:59 Last Admin: 09/25/23 10:43 Dose: Not Given Ferrous Sulfate (Ferrous Sulfate 325 Mg Tab) 325 mg PO BID [facility] Stop: 10/24/23 08:59 Last Admin: 09/25/23 10:43 Dose: Not Given Finasteride (Finasteride 5 Mg Tab) 5 mg PO QAM [facility] Stop: 10/24/23 08:59 Last Admin: 09/25/23 10:44 Dose: Not Given Folic Acid (Folic Acid 1 Mg Tab) 1 mg PO HS [facility] Stop: 10/24/23 20:59 Last Admin: 09/24/23 20:54 Dose: 1 mg Glucagon (Glucagon For Inj 1 Mg Vial) 1 mg SQ UD PRN; Protocol PRN Reason: Hypoglycemia Protocol Stop: 10/24/23 03:31 Glucose (Glucose 10 Tab/Tube) 4 - 8 tab PO UD PRN; Protocol PRN Reason: Hypoglycemia Treatment Stop: 10/24/23 03:31 Glucose (Glucose 40% Gel 15 Gm Tube) 15 - 30 gm PO UD PRN; Protocol PRN Reason: Hypoglycemia Protocol Stop: 10/24/23 03:31 Piperacillin Sod/Tazobactam (Sod 4.5 gm/ Dextrose) 100 mls @ 25 mls/hr IV Q8H [facility]; Protocol Stop: 10/01/23 05:59 Last Infusion: 09/25/23 11:09 Dose: Infused Insulin Aspart (Insulin Aspart Per Unit Charge) 0 units SC ACHS [facility] Stop: 10/24/23 07:29 Last Admin: 09/25/23 11:53 Dose: Not Given Mirtazapine (Mirtazapine Tab 15 Mg Tab) 15 mg PO HS [facility] Stop: 10/24/23 20:59 Last Admin: 09/24/23 20:54 Dose: 15 mg Miscellaneous (Carbohydrates For Hypoglycemia ) 15 - 30 gm PO UD PRN PRN Reason: Hypoglycemia Protocol Stop: 10/24/23 03:31 Miscellaneous Information (Vancomycin Consult Active) 1 each N/A UD PRN PRN Reason: Consult Stop: 10/24/23 07:33 Nitroglycerin (Nitroglycerin Sl 0.4 Mg/Tab Tab) 0.4 mg SL Q5M PRN PRN Reason: Chest Pain Stop: 10/24/23 03:31 Polyethylene Glycol (Polyethylene (Miralax) 17 Gm Pack) 17 gm PO DAILY PRN PRN Reason: Constipation Stop: 10/24/23 03:31 Potassium Chloride (Potassium Chloride 10 Meq Tabcr) 10 meq PO HS [facility] Stop: 10/24/23 20:59 Last Admin: 09/24/23 20:54 Dose: 10 meq Senna/Docusate Sodium (Docusate Sodium/Senna 50/8.6mg Tab) 2 tab PO DAILY [facility] Stop: 10/24/23 08:59 Last Admin: 09/25/23 10:43 Dose: Not Given Senna/Docusate Sodium (Docusate Sodium/Senna 50/8.6mg Tab) 1 tab PO HS [facility] Stop: 10/24/23 20:59 Last Admin: 09/24/23 20:54 Dose: 1 tab Tramadol HCl (Tramadol Hcl 50 Mg Tablet) 50 mg PO Q6H PRN PRN Reason: Pain Stop: 10/24/23 03:31 (6) Aortic stenosis Cardiac valve disease etiology: nonrheumatic Qualified Code(s): I35.0 - Nonrheumatic aortic (valve) stenosis
--- NOTE | 2023-09-25 14:34 | Hospitalist Progress Note ---
Date of Service September 25, 2023 Assessment & Plan (1) Acute hypoxic respiratory failure: Plan: 88-year-old male with past medical history significant for type 2 diabetes, hyperlipidemia, hiatal hernia, chronic systolic CHF, hypertension, moderate aortic stenosis, moderate aortic and mitral regurgitation, history of CAD s/p CABG, persistent atrial fibrillation, s/p pacemaker, vitamin B12 deficiency, BPH, iron deficiency anemia, depression, blindness of right eye, blurry vision left eye, frequent falls frequently, balance disorder, who lives at [facility] presents with shortness of breath and requiring 6 L oxygen and found to have pleural effusions, CHF and possible pneumonia.Not on home oxygen. Acute hypoxic respiratory failure Acute on chronic systolic and diastolic CHF. Left-sided pleural effusion Possible aspiration pneumonia Patient presented from [facility] with shortness of breath. Respiratory bio fire negative CTA chest personally reviewed; large pleural effusion seen on the left side. Hiatal hernia present. No PE. His chest x-ray from April of this year did not show any pleural effusion. MRSA nares positive VFSS done; has aspiration of multiple consistencies. Echocardiogram shows EF of 55 to 60% with mild concentric LVH. Large left-sided pleural effusion. Started on Lasix 20 mg IV twice daily. Strict input and output monitoring, daily weights Plan for thoracentesis as per pulmonology. On ceftriaxone and vancomycin. We will transition him to Augmentin and doxycycline at discharge. Course of antibiotic will depend on pleural fluid analysis. Wean oxygen as tolerated Aspiration precautions Demand ischemia Mild elevation of troponin Cardiology on board; Coreg and Imdur on hold due to hypotension. will start him on metoprolol 25 mg from today as per recommendation by cardiology. Consider adding Imdur if blood pressure allows Type 2 diabetes mellitus Sliding scale We will monitor Hypertension On Coreg and Imdur and losartan at home Imdur and losartan on hold. Coreg changed to metoprolol History of CAD s/p CABG On aspirin and statin On metoprolol and Imdur for hypotension and restart when able Atrial fibrillation History of symptomatic bradycardia S/p pacemaker On aspirin Eliquis stopped because of falls on metoprolol DVT prophylaxis SCDs and heparin subcu CODE STATUS DNR/DNI as per discussion with the [facility]dc and also with his [id number] Disposition:; admitted to telemetry floor for acute hypoxic respiratory failure, acute on chronic CHF. Possible thoracentesis today/tomorrow. [facility]. Time spent evaluating patient, direct bedside care, chart review, placing orders, interpretation of diagnostic studies, discussion with consultants, patient, and family members, as well as other required patient management activities is 60 minutes Please note the above document was generated using voice recognition software. It may contain grammatical, syntax or spelling errors. Any formal questions or concerns about the content, text or information contained within the body of this dictation should be directly addressed to the provider for clarification Admission and Anticipated Discharge Date Admission Date: September 24, 2023 Subjective Patient seen and examined at bedside. He is lying on the bed comfortably; not in any distress. He is saturating well on room air. He reports tiredness and fatigue. He denies any pain or discomfort. Review of Systems Review of Systems: All systems reviewed & are unremarkable except as noted in Subjective Physical Exam Physical Exam: General- Not in distress Lungs-decreased breath sound on left mid and lower lung field. Heart- regular rhythm; ESM , no gallop, Abdomen- normal bowel sounds, soft, nontender, no distension. Extremities- trace pretibial edema, no erythema seen. Neuro- alert, oriented x 1; PERRL, no facial palsy; no dysarthria; moves extremities Skin- warm & dry Results & Data Results & Data Vital Signs (Past 12 Hours) Vital Signs Temp Pulse Pulse Resp BP Pulse Ox Pulse Ox 09/25/23 11:30 36.8 C 74 20 112/64 97 09/25/23 08:12 09/25/23 08:00 36.7 C 65 18 124/61 96 09/25/23 07:19 60 09/25/23 03:32 94 09/25/23 02:35 36.6 C 64 16 110/52 L 95 O2 Del Method O2 Del Method O2 Flow Rate O2 Flow Rate 09/25/23 11:30 Nasal Cannula 2 09/25/23 08:12 Room Air 09/25/23 08:00 Nasal Cannula 2 09/25/23 07:19 09/25/23 03:32 Nasal Cannula 3 09/25/23 02:35 Nasal Cannula 2 Laboratory Results Laboratory Results WBC 12.90 K/ul (4.8-10.8) H 09/25/23 05:26 RBC 2.74 M/uL (4.70-6.10) L 09/25/23 05:26 Hgb 8.2 g/dl (14.0-18.0) L 09/25/23 05:26 Hct 25.8 % (42.0-52.0) L 09/25/23 05:26 MCV 94.2 fL (80.0-100.0) 09/25/23 05:26 MCH 29.9 pg (25.0-34.0) 09/25/23 05:26 MCHC 31.8 g/dL (32.0-36.0) L 09/25/23 05:26 RDW Std Deviation 62.9 fL (36.4-46.3) H 09/25/23 05:26 RDW Coeff of [place] 18.6 % (11.5-14.5) H 09/25/23 05:26 Plt Count 220 K/uL (130-400) 09/25/23 05:26 MPV 10.1 fL (9.4-12.4) 09/25/23 05:26 Immature Gran % (Auto) 0.7 % 09/25/23 05:26 Neut % (Auto) 81.8 % 09/25/23 05:26 Lymph % (Auto) 11.1 % 09/25/23 05:26 Summit % (Auto) 5.4 % 09/25/23 05:26 Eos % (Auto) 0.8 % 09/25/23 05:26 Baso % (Auto) 0.2 % 09/25/23 05:26 Neut # (Auto) 10.56 K/uL (1.40-6.50) H 09/25/23 05:26 Lymph # (Auto) 1.43 K/uL (1.20-3.40) 09/25/23 05:26 Summit # (Auto) 0.70 K/uL (0.11-0.59) H 09/25/23 05:26 Eos # (Auto) 0.10 K/uL (0.00-0.50) 09/25/23 05:26 Baso # (Auto) 0.02 K/uL (0.00-0.20) 09/25/23 05:26 Immature Gran # (Auto) 0.09 K/uL (0.01-0.20) 09/25/23 05:26 PT 13.0 Seconds (9.0-12.0) H 09/23/23 Unknown INR 1.2 (0.9-1.1) H 09/23/23 Unknown APTT 29.6 Seconds (21.0-31.0) 09/23/23 Unknown PTT Ratio 1.0 09/23/23 Unknown Sodium 141 mmol/L (136-145) 09/25/23 05:26 Potassium 4.5 mmol/L (3.5-5.1) 09/25/23 05:26 Chloride 109 mmol/L (98-107) H 09/25/23 05:26 Carbon Dioxide 22 mmol/L (21-32) 09/25/23 05:26 Anion Gap 10 (3-11) 09/25/23 05:26 BUN 39 mg/dl (6-23) H 09/25/23 05:26 Creatinine 1.89 mg/dl (0.6-1.4) H D 09/25/23 05:26 Est Cr Clr Drug Dosing 24.3 ml/min 09/25/23 05:26 Est GFR ( Amer) 36.2 ml/min 09/25/23 05:26 Est GFR (Non-Af Amer) 31.2 ml/min 09/25/23 05:26 BUN/Creatinine Ratio 20.6 (10-20) H 09/25/23 05:26 Glucose 101 mg/dl (70-99(Fasting)) H 09/25/23 05:26 POC Glucose 115 mg/dl (70-99) H 09/25/23 11:25 Estimat Average Glucose 146 mg/dl 09/24/23 04:09 Hemoglobin A1c 6.7 % (4.5-5.6) H 09/24/23 04:09 Calcium 8.4 mg/dl (8.6-10.3) L 09/25/23 05:26 Magnesium 2.0 mg/dl (1.7-2.4) 09/24/23 04:09 Total Bilirubin 0.6 mg/dl (0.2-1.0) 09/23/23 Unknown AST 18 U/L (13-39) 09/23/23 Unknown ALT 9 U/L (7-52) 09/23/23 Unknown Alkaline Phosphatase 68 U/L (34-104) 09/23/23 Unknown Troponin I High Sens 35.1 pg/ml (0-20) H 09/24/23 18:55 B-Natriuretic Peptide 483 pg/ml (0-100) H 09/23/23 Unknown Total Protein 6.9 gm/dl (6.0-8.3) 09/23/23 Unknown Albumin 3.1 gm/dl (3.4-5.0) L 09/23/23 Unknown Globulin 3.8 gm/dl (2.5-4.0) 09/23/23 Unknown Albumin/Globulin Ratio 0.8 (0.9-2) L 09/23/23 Unknown Lipase 30 U/L (11-82) 09/23/23 Unknown Procalcitonin 0.08 ng/ml (0-0.5) 09/24/23 Unknown Nasal Screen MRSA (PCR) Positive (Negative) A 09/24/23 04:44 Random Vancomycin 9.8 mcg/ml (10-20) L 09/25/23 05:26 Adenovirus (PCR) Not Detected (NotDetected) 09/23/23 22:29 B. pertussis DNA (PCR) Not Detected (NotDetected) 09/23/23 22:29 B.parapertussis DNA PCR Not Detected (NotDetected) 09/23/23 22:29 C. pneumoniae DNA (PCR) Not Detected (NotDetected) 09/23/23 22:29 Coronavirus OC43 (PCR) Not Detected (NotDetected) 09/23/23 22:29 Coronavirus HKU1 (PCR) Not Detected (NotDetected) 09/23/23 22:29 Coronavirus 229E (PCR) Not Detected (NotDetected) 09/23/23 22:29 SARS-CoV-2 (PCR) Not Detected (NotDetected) 09/23/23 22:29 Coronavirus NL63 (PCR) Not Detected (NotDetected) 09/23/23 22:29 Human Metapneumovir PCR Not Detected (NotDetected) 09/23/23 22:29 Influenza Type A (PCR) Not Detected (NotDetected) 09/23/23 22:29 Influenza Type B (PCR) Not Detected (NotDetected) 09/23/23 22:29 M. pneumoniae (PCR) Not Detected (NotDetected) 09/23/23 22:29 Parainfluenza 1 (PCR) Not Detected (NotDetected) 09/23/23 22:29 Parainfluenza 2 (PCR) Not Detected (NotDetected) 09/23/23 22:29 Parainfluenza 3 (PCR) Not Detected (NotDetected) 09/23/23 22:29 Parainfluenza 4 (PCR) Not Detected (NotDetected) 09/23/23 22:29 RSV (PCR) Not Detected (NotDetected) 09/23/23 22:29 Entero/Rhino (PCR) Not Detected (NotDetected) 09/23/23 22:29 Impressions Chest X-Ray 09/23/23 21:32 XR chest 1V not portable HISTORY: 88 years-old Male Chest pain, nonspecific acute chest pain COMPARISON: CTA chest of same day TECHNIQUE: AP view of the chest FINDINGS: Cardiac silhouette is enlarged. Sternotomy wires are present along with a left subclavian pacer. Small right and large left pleural effusions. No pneumothorax. Left lung volume loss with bilateral airspace opacities and pulmonary vascular congestion. Degenerative changes of the shoulders and spine. IMPRESSION: 1. Cardiomegaly with pulmonary vascular congestion, small right and large left pleural effusions. 2. Left lung volume loss is noted along with bilateral airspace opacities, better evaluated on the same day CTA of the chest. ACT 112: Negative or not required by law. The above report was generated using voice recognition software. It may contain grammatical, syntax or spelling errors. Electronically signed by: Bon Alfonso M.D. 09/24/2023 6:44 AM Abdomen/Pelvis CT 09/23/23 22:01 Exam(s): CT ABDOMEN + PELVIS With Contrast IV Amt: 119 ml optiray 320 EXAM: CT Abdomen and Pelvis With Intravenous Contrast CLINICAL HISTORY: Reason for exam: lower left pain. TECHNIQUE: Axial computed tomography images of the abdomen and pelvis with intravenous contrast. CTDI is 93 mGy and DLP is 1842.99 mGy-cm. Automated exposure control was utilized for the study. A dose lowering technique was utilized adhering to the principles of ALARA. CONTRAST: Patient received 119 ml optiray 320 of IV contrast COMPARISON: Mar 11 2023 FINDINGS: Lung bases: Unremarkable. No mass. No consolidation. ABDOMEN: Liver: Unremarkable. No mass. Gallbladder and bile ducts: There is a 3.7 cm rim calcified stones within a nondilated gallbladder. No pericholecystic inflammation or biliary duct dilation is seen. Pancreas: Unremarkable. No mass. No ductal dilation. Spleen: Unremarkable. No splenomegaly. Adrenals: Unremarkable. No mass. Kidneys and ureters: There is an 11 cm simple cyst extending off the lower pole of the left kidney. No follow-up is required. No hydronephrosis. Stomach and bowel: 6.5 cm of stool in the rectum suggesting constipation. No dilated bowel loops are identified. No acute inflammatory process is seen. There is a left inguinal hernia measuring 4.1 cm in diameter containing loops of small bowel without signs of obstruction or incarceration. No mucosal thickening. PELVIS: Appendix: No findings to suggest acute appendicitis. Bladder: Unremarkable. No mass. Reproductive: Unremarkable as visualized. ABDOMEN and PELVIS: Intraperitoneal space: Unremarkable. No free air. No significant fluid collection. Bones/joints: Moderate degenerative changes throughout the spine. No acute fracture or subluxation is seen. Metallic artifact from a left hip arthroplasty. No acute fracture or dislocation is seen. Soft tissues: See above. Vasculature: The abdominal aorta is severely calcified but nondilated. There is no aneurysm or dissection. Lymph nodes: Unremarkable. No enlarged lymph nodes. IMPRESSION: 1. 6.5 cm of stool in the rectum suggesting constipation. No dilated bowel loops are identified. No acute inflammatory process is seen. There is a left inguinal hernia measuring 4.1 cm in diameter containing loops of small bowel without signs of obstruction or incarceration. 2. There is a 3.7 cm rim calcified stones within a nondilated gallbladder. No pericholecystic inflammation or biliary duct dilation is seen. Electronically signed by: Carlos Russell MD 09/23/23 23:29 PM Chest CTA 09/23/23 22:04 Exam(s): CTA CHEST IV Amt: 119 ml optiray 320 EXAM: CT Angiography Chest With Intravenous Contrast CLINICAL HISTORY: Reason for exam: PE, hypoxia, abd pain, SOB. TECHNIQUE: Axial computed tomographic angiography images of the chest with intravenous contrast. CTDI is test is 93 mGy and DLP is 1842.99 mGy-cm. Automated exposure control was utilized for the study. A dose lowering technique was utilized adhering to the principles of ALARA. MIP reconstructed images were created and reviewed. COMPARISON: Chest x-ray from September 23, [address] abdomen and pelvis from March 11, 2023 FINDINGS: Pulmonary arteries: See below. Aorta: The thoracic aorta is severely calcified but nondilated. There is no aneurysm or dissection. Lungs: The pulmonary arterial tree is adequately opacified with contrast. There is motion blur obscuring the distal right lower lobe branches and relatively slow flow in the left lower lobe due to atelectasis. No pulmonary emboli are identified. There is patchy infiltrate or edema throughout the left upper lobe as well as the right perihilar and right basilar lung as well. Consider pneumonia versus pulmonary edema. The heart is not enlarged. There is severe coronary calcification. There is reflux of contrast into the IVC and hepatic veins suggesting CHF. Pleural space: Large left pleural effusion layering the 5 cm thick with complete left lower lobe atelectasis and atelectasis of portions of the lingula and left upper lobe. No pneumothorax. Heart: Unremarkable. No cardiomegaly. No significant pericardial effusion. No evidence of RV dysfunction. Mediastinum: There is a 8 cm hiatal hernia. There is diffuse wall thickening involving the esophagus suggesting esophagitis. Bones/joints: Multilevel osteophytosis ankylosing the thoracic spine. No acute fracture or destructive bone lesion is seen. No dislocation. Soft tissues: Unremarkable. Lymph nodes: Unremarkable. No enlarged lymph nodes. IMPRESSION: 1. Large left pleural effusion layering the 5 cm thick with complete left lower lobe atelectasis and atelectasis of portions of the lingula and left upper lobe. 2. There is patchy infiltrate or edema throughout the left upper lobe as well as the right perihilar and right basilar lung as well. Consider pneumonia versus pulmonary edema. 3. There is a 8 cm hiatal hernia. There is diffuse wall thickening involving the esophagus suggesting esophagitis. 4. The thoracic aorta is severely calcified but nondilated. There is no aneurysm or dissection. 5. The pulmonary arterial tree is adequately opacified with contrast. There is motion blur obscuring the distal right lower lobe branches and relatively slow flow in the left lower lobe due to atelectasis. No pulmonary emboli are identified. 6. The heart is not enlarged. There is severe coronary calcification. There is reflux of contrast into the IVC and hepatic veins suggesting CHF. Electronically signed by: Carlos Russell MD 09/23/23 23:26 PM Videofluoroscopic Swallow 09/24/23 13:30 VIDEO SWALLOW STUDY CLINICAL HISTORY: Aspiration. COMPARISON STUDY: Video swallow study dated 05/04/2022. FLUOROSCOPY TIME: 2.1 minutes. Ka,r: 22.4 mGy FINDINGS: Fluoroscopic guidance was provided to the department of speech pathology. The patient consumed barium impregnated pudding, thickened liquids, and thin barium while the swallowing mechanism was observed real-time. Silent aspiration was seen with thin barium and the nectar thick liquid textures. No penetration was seen with the pudding texture. Disordered swallowing was observed in the examination. IMPRESSION: Aspiration was seen with thin barium and the nectar thick liquid textures. See dedicated speech pathology report for detailed findings and recommendations. Dictated: 09/24/2023 2:50 PM Transcribed: 09/24/2023 3:03 PM Nicolasa [id number] [email or web address]_Jad [id number] Electronically signed by: Eros العلي M.D. 09/24/2023 3:24 PM
[2023-09-25] MEDS ORDERED: cefTRIAXone SODIUM 2,000 MG in DEXTROSE 5 % MINI-B 50 ML IV SCH (15:00)
--- NOTE | 2023-09-25 15:10 | Procedure Note ---
Procedure Note Date of Service September 25, 2023 Note Procedure: Diagnostic therapeutic ultrasound-guided catheter thoracentesis Audio Production Engineer: Dr. Malorie Steele Indication: Left pleural effusion Consent: Signed by patient and verified with timeout prior to procedure Anesthesia: 1% lidocaine without epinephrine local. Procedure: Consent was verified and timeout performed. Appropriate imaging studies were reviewed prior to the procedure. Patient was placed in a seated position and limited thoracic ultrasound was performed of the left chest. See separate imaging. Appropriate site above the diaphragm for thoracentesis was selected. The skin was prepped and draped in normal sterile fashion. Lidocaine was used for local analgesia. Fluid was aspirated via the finder needle. A small skin joaquin was made with the scalpel and the catheter over the needle apparatus was advanced over the rib into the pleural space. Using the syringe one-way valve system, a total of 1250 mL's of serous fluid was removed. Procedure was terminated due to chest discomfort. The catheter was removed and observed to be intact. A sterile dressing was applied. Post procedure chest x-ray was ordered. Fluid was sent for labs, culture and cytology. Complications: None Blood loss: Less than 1 cc Coding CPT Codes Pulmonary/Thoracic - Pulmonary and Thoracic: 11454 Thoracentesis w imaging ([id number]) [facility] [place]odes [place]Charges) Pulmonary/Thoracic Procedure 1: Pulmonary and Thoracic: 56415 Thoracentesis w imaging
[2023-09-25 15:47] LABS: Appearance Pleural Fluid Clear; Color Pleural Fluid Yellow; RBC Pleural Fluid Auto < 2000 /uL; Source Pleural Fluid Left Lung; WBC Pleural Fluid Auto 64 /uL
[2023-09-25 15:49] LABS: Amylase Pleural Fluid 35 U/L
[2023-09-25 15:54] LABS: Glucose Pleural Fluid 117 mg/dl; LDH Pleural Fluid 55 U/L; Total Protein Pleural Fluid < 3.0 gm/dl
[2023-09-25 15:56] LABS: Albumin Level 2.7 gm/dl (3.4-5.0); Bilirubin,Total 0.9 mg/dl (0.2-1.0); Total Protein 5.8 gm/dl (6.0-8.3)
[2023-09-25 15:57] LABS: Eosinophils, Fluid 1 %; Lymphocytes, Fluid 31 %; Mono,Macrophage,Mesothelial 28 %; Neutrophils, Fluid 40 %
[2023-09-25] MEDS: FUROSEMIDE INJ 20 MG/2 ML VIAL IV SCH (15:59)
--- NOTE | 2023-09-25 16:03 | XRay Report ---
XR chest 1V portable HISTORY: 88 years-old Male S/P Thoracentesis follow-up study in a patient with left pleural effusion COMPARISON: 09/23/2023 TECHNIQUE: AP view of the chest FINDINGS: Cardiac silhouette is enlarged. Median sternotomy with left subclavian pacer. Contrast noted within t he colon. Pulmonary vascular congestion with interstitial coarsening, midlung and bibasilar opacities , progressed on the right. Small pleural effusions, decreased on the left status post thoracentesis. No postprocedural pneumothorax identified. IMPRESSION: 1. Decreased size of the left pleural effusion status post thoracentesis. 2. No postprocedural pneumothorax identified. 3. Progressive right lung airspace opacities. ACT 112: Negative or not required by law. The above report was generated using voice recognition software. It may contain grammatical, syntax o r spelling errors. Electronically signed by: Bon Alfonso M.D. 09/25/2023 4:01 PM
[2023-09-25] MEDS: METOPROLOL SUCC 25MG EXT REL TAB PO SCH (17:57)
[2023-09-25] MEDS: BIMATOPROST 0.01% OP SOLN 2.5 ML BTL OPB SCH (20:26)
[2023-09-25] MEDS: FOLIC ACID 1 MG TAB PO SCH (20:29)
[2023-09-25] MEDS: MIRTAZAPINE TAB 15 MG TAB PO SCH (20:29)
[2023-09-25] MEDS: POTASSIUM CHLORIDE 10 MEQ TABCR PO SCH (20:35)
[2023-09-26 05:56] LABS: Basophils # (auto) 0.04 K/uL (0.00-0.20); Basophils % (auto) 0.3 %; Eosinophils # (auto) 0.42 K/uL (0.00-0.50); Eosinophils % (auto) 3.5 %; Hematocrit (blood only) 29.4 % (42.0-52.0); Hemoglobin 9.3 g/dl (14.0-18.0); Immature Granulocytes # (auto) 0.07 K/uL (0.01-0.20); Immature Granulocytes % (auto) 0.6 %; Lymphocytes # (auto) 1.36 K/uL (1.20-3.40); Lymphocytes % (auto) 11.4 %; Mean Corpuscular Hemoglobin 29.7 pg (25.0-34.0); Mean Corpuscular Hgb Conc 31.6 g/dL (32.0-36.0); Mean Corpuscular Volume 93.9 fL (80.0-100.0); Mean Platelet Volume 9.9 fL (9.4-12.4); Monocytes # (auto) 0.43 K/uL (0.11-0.59); Monocytes % (auto) 3.6 %; Neutrophils # (auto) 9.57 K/uL (1.40-6.50); Neutrophils % (auto) 80.6 %; Platelet Count 221 K/uL (130-400); RDW Standard Deviation 64.7 fL (36.4-46.3); Red Blood Count 3.13 M/uL (4.70-6.10); White Blood Count 11.89 K/ul (4.8-10.8)
[2023-09-26] MEDS: FUROSEMIDE INJ 20 MG/2 ML VIAL IV SCH ×2 (06:05→13:08)
[2023-09-26 06:07] LABS: BUN Creatinine Ratio 22.2 (10-20); Calcium 8.2 mg/dl (8.6-10.3); Creatinine Clr Calc Pharmacy 23.5 ml/min; Est GFR (Non-African American) 30.2 ml/min; Potassium 4.2 mmol/L (3.5-5.1)
[2023-09-26] MEDS: FERROUS SULFATE 325 MG TAB PO SCH (07:35)
[2023-09-26] MEDS: METOPROLOL SUCC 25MG EXT REL TAB PO SCH (07:35)
[2023-09-26] MEDS: ATORVASTATIN 40 MG TAB PO SCH (07:35)
[2023-09-26] MEDS: FINASTERIDE 5 MG TAB PO SCH (07:35)
[2023-09-26] MEDS: CYANOCOBALAMIN (B-12) 500 MCG TABLET PO SCH (07:35)
[2023-09-26] MEDS: BRIMONIDINE TARTRATE 0.2% 5ML OPL SCH ×3 (07:36→20:49)
[2023-09-26] MEDS: ASPIRIN 81 MG ECTAB PO SCH (07:36)
--- NOTE | 2023-09-26 07:36 | XRay Report ---
XR chest 1V portable CLINICAL HISTORY: f/u COMPARISON STUDY: Chest CT September 23, 2023. Chest radiograph September 25, 2023. FINDINGS: There are median sternotomy wires and a left subclavian pacer. Oral contrast within the col on is from recent video swallow. There is no pneumothorax. Small left pleural effusion is similar to prior chest radiograph and significantly decreased in size since CT of September 23, 2023. There is a trace right pleural effusion. Left basilar retrocardiac opacity persists. Patchy bilateral airspace o pacities and interstitial thickening persists. IMPRESSION: 1. No significant change in appearance of the chest. Small left pleural effusion with persistent left basilar retrocardiac opacity which could reflect pneumonia or atelectasis. Radiographic follow-up to ensure resolution is recommended. 2. Reticulonodular interstitial thickening. This could reflect pulmonary edema or an infectious proce ss. ACT 112: Negative or not required by law. Electronically signed by: Parish Hooks M.D. 09/26/2023 7:34 AM
[2023-09-26] MEDS: DORZOLAMIDE/TIMOLOL 22.3/6.8MG/ML 10 ML BTL OPL SCH ×3 (07:37→20:48)
--- NOTE | 2023-09-26 07:40 | Pulmonology Progress Note ---
Date of Service September 26, 2023 Assessment & Plan (1) Acute on chronic combined systolic (congestive) and diastolic (congestive) heart failure: (2) Permanent atrial fibrillation: (3) Pleural effusion: (4) Acute hypoxic respiratory failure: Plan CT chest 09/23/2023 personally reviewed: Patchy alveolar opacities appreciated bilaterally Bilateral pleural effusion, larger on the left, small on the right Compression atelectasis of the left lower lobe, questionable consolidative process of the lingula Moderate hiatal hernia No significant mediastinal lymphadenopathy -- Acute hypoxic respiratory failure --> Resolved Likely secondary to pleural effusion, L>R Respiratory bio fire negative for everything Nasal MRSA positive, procalcitonin 0.08 BNP 483 QTc 507 with paced rhythm S/p thoracentesis 09/25/2023, 1250 serous fluid removed, transudative as per lights criteria Pleural fluid: LDH 55, protein less than 3, glucose 117, pH 7.47 Serum: LDH 230, protein 5.8 --Aspiration pneumonia Appreciated on videofluoroscopic evaluation Continue with antibiotic -- History of A-fib Last dose of apixaban was 09/18/2023 Plan: Chest x-ray from today shows small left-sided pleural effusion, no pneumothorax No further recommendation from pulmonary perspective, will sign off Please call directly with any questions Martinez Sosa [phone], patient's brother in law who is POA Please note the above document was generated using voice recognition software. It may contain grammatical, syntax or spelling errors.Any formal questions or concerns about the content, text or information contained within the body of this dictation should be directly addressed to the provider for clarification., Admission and Anticipated Discharge Date Admission Date: September 24, 2023 Subjective Patient seen and examined at bedside. No acute distress, notable symptoms overnight He was saturating well on room air He was sleeping. Was not in any respiratory distress. Denied any headache, no nausea, no vomiting Fair appetite Requesting not to disturb him while he is sleeping. Review of Systems 2 Review of Systems: All systems reviewed & are unremarkable except as noted in Subjective Physical Exam 2 Physical Exam: Constitutional: No acute distress HEENT: EOMI, PERRLA, hard to hear Respiratory system: Decreased air entry on the left side, no wheeze, no rhonchi, positive crackles bilateral lower lobes CVS: S1-S2 positive, positive 3 out of 6 systolic murmur appreciated best at the aorta Abdomen: Soft, nontender, nondistended, positive bowel sounds x4 Extremities: +2 pulses bilaterally radialis/ dorsalis pedis, no cyanosis, minimal pitting edema bilateral lower extremity Neuro: Awake alert oriented to self Psych: Normal mood and affect G/U: No Martinez Skin: no rashes, warm and dry Lymphatic: no cervical or axillary lymphadenopathy Results & Data Results & Data Vital Signs (Past 12 Hours) Vital Signs Temp Pulse Pulse Resp BP Pulse Ox Pulse Ox 09/26/23 03:00 96 09/26/23 02:48 37 C 60 20 126/67 96 09/26/23 00:20 60 09/25/23 22:28 36.8 C 68 18 121/55 L 95 O2 Del Method O2 Del Method 09/26/23 03:00 Room Air 09/26/23 02:48 Room Air 09/26/23 00:20 09/25/23 22:28 Room Air Laboratory Results 09/26/23 05:32 09/26/23 05:32 PG Care Time/CCT Total # of Minutes Spent Total Time Spent with Patient: Total time spent is greater than 50% in coordination of care (as documented) at patient's floor/unit and/or counseling patient: Coding Level of Care Code 05485 SUB INP/OBS CARE 2/35MIN Diagnoses Acute on chronic combined systolic (congestive) and diastolic (congestive) heart failure I50.43 Permanent atrial fibrillation I48.21 Pleural effusion J90 Acute hypoxic respiratory failure J96.01
[2023-09-26] MEDS: DOCUSATE SODIUM/SENNA 50/8.6MG TAB PO SCH ×2 (07:45→23:54)
[2023-09-26] MEDS ORDERED: VANCOMYCIN HCL 750 MG in SODIUM CHLORIDE 0.9% 250 ML IV ONE (08:00)
--- NOTE | 2023-09-26 08:02 | Hospitalist Progress Note ---
Date of Service September 26, 2023 Assessment & Plan (1) Acute hypoxic respiratory failure: (2) Permanent atrial fibrillation: (3) Pleural effusion: (4) Acute heart failure with preserved ejection fraction (HFpEF): Plan 88-year-old male with past medical history significant for type 2 diabetes, hyperlipidemia, hiatal hernia, chronic systolic CHF, hypertension, moderate aortic stenosis, moderate aortic and mitral regurgitation, history of CAD s/p CABG, persistent atrial fibrillation, s/p pacemaker, vitamin B12 deficiency, BPH, iron deficiency anemia, depression, blindness of right eye, blurry vision left eye, frequent falls frequently, balance disorder, who lives at [facility] presents with shortness of breath and requiring 6 L oxygen and found to have pleural effusions, CHF and possible pneumonia. Not on home oxygen. Acute hypoxic respiratory failure Acute on chronic systolic and diastolic CHF. Left-sided pleural effusion Possible aspiration pneumonia Patient presented from [facility] with shortness of breath. Respiratory bio fire negative CTA chest personally reviewed; large pleural effusion seen on the left side. Hiatal hernia present. No PE. His chest x-ray from April of this year did not show any pleural effusion. MRSA nares positive VFSS done; has aspiration of multiple consistencies. Echocardiogram shows EF of 55 to 60% with mild concentric LVH. Large left-sided pleural effusion. Started on Lasix 20 mg IV twice daily-held for worsening creatinine. Strict input and output monitoring, daily weights Thoracentesis on 09/25 with 1250cc out. On ceftriaxone and vancomycin-transitioned him to Augmentin/doxy today Wean oxygen as tolerated-on room air today. Aspiration precautions Demand ischemia Mild elevation of troponin Cardiology on board; Coreg and Imdur on hold due to hypotension. will start him on metoprolol 25 mg from today as per recommendation by cardiology. Restart home Imdur now. Type 2 diabetes mellitus chronic, well controlled. will use short acting insulin for correction only as needed. Hypertension On Coreg and Imdur and losartan at home Imdur and losartan on hold. Coreg changed to metoprolol-BP at goal History of CAD s/p CABG chronic, stable. On aspirin and statin, BB Atrial fibrillation chronic, stable. EKG with V -paced rhythm. History of symptomatic bradycardia S/p pacemaker On aspirin Eliquis stopped because of falls Continues on metoprolol DVT prophylaxis SCDs and heparin subcu CODE STATUS DNR/DNI as per discussion with the shelter and also with his [id number] Disposition: to rehab after medically optimized per cardiology from a volume standpoint. DO Emmie Grijalva Hospitalist Admission and Anticipated Discharge Date Admission Date: September 24, 2023 Subjective 88-year-old man admitted for acute respiratory failure with hypoxia status post left-sided thoracentesis on 09/25 with removal of 1200 cc of fluid. Today he reports no pain and feels his breathing is improved He is asking for potato chips ice cream and soda Denies any other complaints/concerns Physical Exam Physical Exam: CONSTITUTIONAL: thin, frail, elderly, vitals as above, NAD EYES: normal conjunctivae, ENT: external ear and nose normal, oropharynx clear, NECK: trachea midline, RESPIRATORY: clear to auscultation bilaterally, no crackles, rales or wheezes, normal respiratory effort CARDIOVASCULAR: regular rate and rhythm, S1 and 2 heard without murmurs, gallops or rubs, no JVD, no peripheral edema, CHEST: inspection of chest was normal GASTROINTESTINAL: normal bowel sounds, soft, nontender, ND, no guarding MUSCULOSKELETAL: strength 5/5 throughout, head is normocephalic and atraumatic, SKIN: warm and dry NEUROLOGIC: CN 2-12 grossly intact, no sensory deficit, normal cognition, normal speech, no tremor PSYCHIATRIC: alert cooperative and oriented to person, place and time. Euthymic mood, makes good eye contact, language grossly intact, recent and remote memory grossly intact. Results & Data Results & Data Vital Signs (Past 12 Hours) Vital Signs Temp Pulse Pulse Resp BP Pulse Ox Pulse Ox 09/26/23 03:00 96 09/26/23 02:48 37 C 60 20 126/67 96 09/26/23 00:20 60 09/25/23 22:28 36.8 C 68 18 121/55 L 95 O2 Del Method O2 Del Method 09/26/23 03:00 Room Air 09/26/23 02:48 Room Air 09/26/23 00:20 09/25/23 22:28 Room Air Laboratory Results Short CBC 09/26/23 Range/Units 05:32 WBC 11.89 H (4.8-10.8) K/ul Hgb 9.3 L (14.0-18.0) g/dl Hct 29.4 L (42.0-52.0) % Plt Count 221 (130-400) K/uL BMP 09/26/23 05:32 Sodium 141 Potassium 4.2 Chloride 110 H Carbon Dioxide 21 BUN 43 H Creatinine 1.94 H Glucose 95 Calcium 8.2 L Liver Function 09/25/23 Range/Units 15:15 Total Bilirubin 0.9 (0.2-1.0) mg/dl Albumin 2.7 L (3.4-5.0) gm/dl Diagnostic Findings Chest X-Ray 09/26/23 07:00 XR chest 1V portable CLINICAL HISTORY: f/u COMPARISON STUDY: Chest CT September 23, 2023. Chest radiograph September 25, 2023. FINDINGS: There are median sternotomy wires and a left subclavian pacer. Oral contrast within the colon is from recent video swallow. There is no pneumothorax. Small left pleural effusion is similar to prior chest radiograph and significantly decreased in size since CT of September 23, 2023. There is a trace right pleural effusion. Left basilar retrocardiac opacity persists. Patchy bilateral airspace opacities and interstitial thickening persists. IMPRESSION: 1. No significant change in appearance of the chest. Small left pleural effusion with persistent left basilar retrocardiac opacity which could reflect pneumonia or atelectasis. Radiographic follow-up to ensure resolution is recommended. 2. Reticulonodular interstitial thickening. This could reflect pulmonary edema or an infectious process. ACT 112: Negative or not required by law. Electronically signed by: Parish Hooks M.D. 09/26/2023 7:34 AM Medications Administered Current Inpatient Medications Acetaminophen (Acetaminophen 325 Mg Tab) 650 mg PO Q4H PRN PRN Reason: Pain or Fever Stop: 10/24/23 03:31 Aspirin (Aspirin 81 Mg Ectab) 81 mg PO DAILY [facility] Stop: 10/24/23 08:59 Last Admin: 09/26/23 07:36 Dose: 81 mg Atorvastatin Calcium (Atorvastatin 40 Mg Tab) 40 mg PO QAM [facility] Stop: 10/24/23 08:59 Last Admin: 09/26/23 07:35 Dose: 40 mg Bimatoprost (Bimatoprost 0.01% Op Soln 2.5 Ml Btl) 1 drops OPB HS [facility] Stop: 10/24/23 20:59 Last Admin: 09/25/23 20:26 Dose: 1 drops Brimonidine Tartrate (Brimonidine Tartrate 0.2% 5ml) 1 drops OPL TID [facility] Stop: 10/24/23 08:59 Last Admin: 09/26/23 07:36 Dose: 1 drops Cyanocobalamin (Cyanocobalamin (B-12) 500 Mcg Tablet) 1,000 mcg PO QAM [facility] Stop: 10/24/23 08:59 Last Admin: 09/26/23 07:35 Dose: 1,000 mcg Dextrose (Dextrose 50% 50 Ml Syringe) 25 - 50 ml IV UD PRN; Protocol PRN Reason: Hypoglycemia Protocol Stop: 10/24/23 03:31 Dorzolamide/Timolol (Dorzolamide/Timolol 22.3/6.8mg/Ml 10 Ml Btl) 1 drops OPL TID [facility] Stop: 10/24/23 08:59 Last Admin: 09/26/23 07:37 Dose: 1 drops Ferrous Sulfate (Ferrous Sulfate 325 Mg Tab) 325 mg PO BID [facility] Stop: 10/24/23 08:59 Last Admin: 09/26/23 07:35 Dose: 325 mg Finasteride (Finasteride 5 Mg Tab) 5 mg PO QAM [facility] Stop: 10/24/23 08:59 Last Admin: 09/26/23 07:35 Dose: 5 mg Folic Acid (Folic Acid 1 Mg Tab) 1 mg PO HS [facility] Stop: 10/24/23 20:59 Last Admin: 09/25/23 20:29 Dose: 1 mg Furosemide (Furosemide Inj 20 Mg/2 Ml Vial) 20 mg IV [id number] [facility] Stop: 10/25/23 14:49 Last Admin: 09/26/23 06:05 Dose: 20 mg Glucagon (Glucagon For Inj 1 Mg Vial) 1 mg SQ UD PRN; Protocol PRN Reason: Hypoglycemia Protocol Stop: 10/24/23 03:31 Glucose (Glucose 10 Tab/Tube) 4 - 8 tab PO UD PRN; Protocol PRN Reason: Hypoglycemia Treatment Stop: 10/24/23 03:31 Glucose (Glucose 40% Gel 15 Gm Tube) 15 - 30 gm PO UD PRN; Protocol PRN Reason: Hypoglycemia Protocol Stop: 10/24/23 03:31 Ceftriaxone Sodium 2,000 mg/ (Dextrose) 50 mls @ 100 mls/hr IV Q24H [facility]; Pr otocol Stop: 10/02/23 14:59 Last Infusion: 09/25/23 17:59 Dose: Infused Vancomycin HCl 750 mg/ Sodium (Chloride) 265 mls @ 200 mls/hr IV ONE ONE Stop: 09/26/23 09:19 Insulin Aspart (Insulin Aspart Per Unit Charge) 0 units SC ACHS [facility] Stop: 10/24/23 07:29 Last Admin: 09/25/23 20:32 Dose: Not Given Metoprolol Succinate (Metoprolol Succ 25mg Ext Rel Tab) 25 mg PO QAM [facility] Stop: 10/25/23 14:59 Last Admin: 09/26/23 07:35 Dose: 25 mg Mirtazapine (Mirtazapine Tab 15 Mg Tab) 15 mg PO HS [facility] Stop: 10/24/23 20:59 Last Admin: 09/25/23 20:29 Dose: 15 mg Miscellaneous (Carbohydrates For Hypoglycemia ) 15 - 30 gm PO UD PRN PRN Reason: Hypoglycemia Protocol Stop: 10/24/23 03:31 Miscellaneous Information (Vancomycin Consult Active) 1 each N/A UD PRN PRN Reason: Consult Stop: 10/24/23 07:33 Nitroglycerin (Nitroglycerin Sl 0.4 Mg/Tab Tab) 0.4 mg SL Q5M PRN PRN Reason: Chest Pain Stop: 10/24/23 03:31 Polyethylene Glycol (Polyethylene (Miralax) 17 Gm Pack) 17 gm PO DAILY PRN PRN Reason: Constipation Stop: 10/24/23 03:31 Potassium Chloride (Potassium Chloride 10 Meq Tabcr) 10 meq PO HS [facility] Stop: 10/24/23 20:59 Last Admin: 09/25/23 20:35 Dose: 10 meq Senna/Docusate Sodium (Docusate Sodium/Senna 50/8.6mg Tab) 2 tab PO DAILY [facility] Stop: 10/24/23 08:59 Last Admin: 09/26/23 07:45 Dose: Not Given Senna/Docusate Sodium (Docusate Sodium/Senna 50/8.6mg Tab) 1 tab PO HS [facility] Stop: 10/24/23 20:59 Last Admin: 09/25/23 20:30 Dose: 1 tab Tramadol HCl (Tramadol Hcl 50 Mg Tablet) 50 mg PO Q6H PRN PRN Reason: Pain Stop: 10/24/23 03:31
[2023-09-26] MEDS: INSULIN ASPART PER UNIT CHARGE SC SCH ×4 (08:23→20:48)
[2023-09-26] MEDS: AMOXICILLIN/CLAVULANATE 500 MG TAB PO SCH ×2 (11:05→18:20)
[2023-09-26] MEDS: DOXYCYCLINE HYCLATE 100 MG CAP PO SCH ×2 (11:05→20:48)
--- NOTE | 2023-09-26 11:33 | Electrocardiogram Report ---
Test Reason : Blood Pressure : / mmHG Vent. Rate : 060 BPM Atrial Rate : 053 BPM P-R Int : 000 ms QRS Dur : 156 ms QT Int : 502 ms P-R-T Axes : 000 -60 082 degrees QTc Int : 502 ms Ventricular-paced rhythm Abnormal ECG When compared with ECG of 23-SEP-2023 21:08, Premature ventricular complexes are no longer Present Vent. rate has decreased BY 5 BPM Confirmed by Conner Gallegos ([id number]) on 09/26/2023 11:33:05 AM Referred By: REFERRED SELF Confirmed By:Basilio Gallegos
--- NOTE | 2023-09-26 14:20 | Cardiology Progress Note ---
Date of Service September 26, 2023 Assessment & Plan (1) Acute hypoxic respiratory failure: (2) Acute on chronic combined systolic (congestive) and diastolic (congestive) heart failure: Plan: Ischemic heart disease status post CABG in [place], 2007 LVEF 50 to 55% per echo 02/2021 (3) Pleural effusion: (4) Permanent atrial fibrillation: (5) S/P cardiac pacemaker procedure: Plan: Symptomatic bradycardia, status post [employer] permanent pacemaker, 06/05/2016--per Dr. Rich only 8 months of battery life per office visit note 08/2023 Permanent atrial fibrillation, Eliquis discontinued due to falls 09/18/[address] Rich (6) Aortic stenosis: Plan: Moderate per echo dated 03/04/2021 Plan IMPRESSION: Medically complex 88-year-old male who presented to [facility] emergency department due to acute hypoxic respiratory failure. Found to have a large left pleural effusion and possible aspiration pneumonia. Known history of permanent atrial fibrillation status post permanent pacemaker. PLAN: Acute on chronic CHF/Left pleural effusion: Hypoxia likely multifactorial secondary to possible aspiration pneumonia with superimposed acute on chronic CHF. Large left pleural effusion noted on CT and chest x-ray. Pulm consulted and un derwent left sided thoracentesis on 09/25 removing 1250 cc of serous fluid. Improved chest xray and respiratory status today. IV furosemide was resumed, but unfortunately creatinine increased from baseline (1.1-1.3) to 1.9. Hold additional doses this afternoon. Possible aspiration pneumonia, antibiotics per primary team. NPO until evaluated by speech. Permanent atrial fibrillation/permanent pacemaker ([employer]): Patient ventricular paced in the 60s with an underlying rhythm of atrial fibrillation--outpatient records suggest device approaching NED--device interrog ation ordered for further evaluation (Pending?) Not on anticoagulation due to frequent falls--Eliquis discontinued 09/18/2023 Carvedilol was on hold due to hypotension. BP now improved. Metoprolol initiated due to afib and low BP Ischemic heart disease: Goal-directed medical therapy with carvedilol, losartan, and Imdur. Many antihypertensives on hold. Resume as able. Carvedilol changed to metoprolol 25 mg daily Continue aspirin and statin. Moderate to possible severe aortic stenosis per echo during this admission -Would recommend conservative medical management given multiple comorbidities Case discussed with Dr. Ferrari-- will follow. I spent a total of 35 minutes on the date of service in preparation, delivery, and documentation of the care provided to this patient, excluding any time spent in the performance of separately billed services. Admission and Anticipated Discharge Date Admission Date: September 24, 2023 Supervising Physician Co-Signing Physician Notes 88-year-old patient admitted with multifactorial acute respiratory failure with hypoxia. Left-sided thoracentesis performed 09/25/23 with removal of 1200 cc fluid. Creatinine trending upward. Received AM dose lasix today. Poor historian. Offers no complaints. PE: VSS. General: NAD, awake and alert. Hearing impaired. Heart: Irregular rhythm, normal S1-S2, 2/6 systolic ejection murmur heard best at the right second costal space. Pulmonary: No rhonchi or wheeze. Diminished breath sounds at the left base. Extremities: No edema. A/P: Agree with above PA-C history, physical exam, assessment and plan. Clinically improved status post thoracentesis. Hold diuretic therapy with acute renal insufficiency. Repeat basic metabolic panel in AM. Rate controlled atrial fibrillation on telemetry. Anticoagulation discontinued due to fall risk. Carvedilol discontinued in favor of Toprol-XL due to borderline hypotension. Pacemaker possibly approaching NED per outpatient records. Await interrogation. Continue aspirin and statin. Antibiotics and aspiration precautions as per internal medicine. Subjective Patient resting in bed comfortably. He reports feeling "great". No SOB. Laying supine. Appears comfortable. No chest pain reported. Underwent thoracentesis yesterday with 1200 cc removed. Tolerated procedure without issue. Improved xray appearance. Review of Systems Review of Systems: All systems reviewed & are unremarkable except as noted in HPI & below Physical Exam Constitutional: + ill appearing and + thin; no acute dis tress Neck: normal visual inspection and trachea midline Respiratory: no labored breathing Auscultation: + rhonchi Cardiovascular: Heart Sounds: normal S1, normal S2 and + murmur (+2/6 systolic, distant heart sounds ) Vessels: no JVD Extremities: no edema Chest (Breasts): Chest: + pacemaker (left chest ) Gastrointestinal (Abdomen): normal bowel sounds, soft, nontender, no hepatosplenomegaly Skin: no rashes, warm and dry Psychiatric: Orientation: alert, oriented to person and cooperative Results & Data Vital Signs (Past 12 Hours) Vital Signs Temp Pulse Resp BP BP Pulse Ox Pulse Ox 09/26/23 11:56 37.0 C 79 20 131/54 L 97 09/26/23 08:00 09/26/23 08:00 36.8 C 66 18 134/60 97 09/26/23 03:00 96 09/26/23 02:48 37 C 60 20 126/67 96 O2 Del Method O2 Del Method 09/26/23 11:56 Room Air 09/26/23 08:00 Room Air 09/26/23 08:00 Room Air 09/26/23 03:00 Room Air 09/26/23 02:48 Room Air Laboratory Results Cardiac Enzymes 09/25/23 Range/Units 15:15 Lactate Dehydrogenase 230 (86-244) U/L CBC 09/26/23 Range/Units 05:32 WBC 11.89 H (4.8-10.8) K/ul RBC 3.13 L (4.70-6.10) M/uL Hgb 9.3 L (14.0-18.0) g/dl Hct 29.4 L (42.0-52.0) % Plt Count 221 (130-400) K/uL Neut # (Auto) 9.57 H (1.40-6.50) K/uL Lymph # (Auto) 1.36 (1.20-3.40) K/uL [place] # (Auto) 0.43 (0.11-0.59) K/uL Eos # (Auto) 0.42 (0.00-0.50) K/uL Baso # (Auto) 0.04 (0.00-0.20) K/uL Comprehensive Metabolic Panel 09/25/23 09/26/23 Range/Units 15:15 05:32 Sodium 141 (136-145) mmol/L Potassium 4.2 (3.5-5.1) mmol/L Chloride 110 H (98-107) mmol/L Carbon Dioxide 21 (21-32) mmol/L BUN 43 H (6-23) mg/dl Creatinine 1.94 H (0.6-1.4) mg/dl Glucose 95 (70-99(Fasting)) mg/dl Calcium 8.2 L (8.6-10.3) mg/dl Total Protein 5.8 L (6.0-8.3) gm/dl Albumin 2.7 L (3.4-5.0) gm/dl Intake and Output 09/25/23 09/26/23 09/26/23 22:59 06:59 14:59 Intake Total 150 / 520 585 / 585 Output Total 101 / 101 Balance 150 / 419 -101 / 419 585 / 585 Intake: IV 150 / 520 265 / 265 Piperacillin/Tazobactam 4.5 gm 100 / 200 In Dextrose 5% Mini-B 100 ml @ 25 mls/hr IV Q8H [facility] Rx#: [id number] Vancomycin HCl 750 mg In Sodium 265 / 265 Chloride 0.9% 250 ml @ 200 mls /hr IV ONE ONE Rx#:[id number] cefTRIAXone SODIUM 2,000 mg In 50 / 50 Dextrose 5 % Mini-B 50 ml @ 100 mls/hr IV Q24H [facility] Rx#: [id number] Oral 320 / 320 Output: Urine 100 / 100 # Bowel Movements Other: # Unmeasured Voids 1 10 29 Weight 61 kg Weight Measurement Method Built in [facility] Diagnostic Findings Telemetry reviewed - Underlying atrial fibrillation with chronic ventricular pacing in the 's. Chest xray this morning: IMPRESSION: 1. No significant change in appearance of the chest. Small left pleural effusion with persistent left basilar retrocardiac opacity which could reflect pneumonia or atelectasis. Radiographic follow-up to ensure resolution is recommended. 2. Reticulonodular interstitial thickening. This could reflect pulmonary edema or an infectious process. Medications Administered Current Inpatient Medications Acetaminophen (Acetaminophen 325 Mg Tab) 650 mg PO Q4H PRN PRN Reason: Pain or Fever Stop: 10/24/23 03:31 Amoxicillin/Clavulanate Potassium (Amoxicillin/Clavulanate 500 Mg Tab) 1 tab PO BIDM [facility]; Protocol Stop: 10/03/23 09:59 Last Admin: 09/26/23 11:05 Dose: 1 tab Aspirin (Aspirin 81 Mg Ectab) 81 mg PO DAILY [facility] Stop: 10/24/23 08:59 Last Admin: 09/26/23 07:36 Dose: 81 mg Atorvastatin Calcium (Atorvastatin 40 Mg Tab) 40 mg PO QAM [facility] Stop: 10/24/23 08:59 Last Admin: 09/26/23 07:35 Dose: 40 mg Bimatoprost (Bimatoprost 0.01% Op Soln 2.5 Ml Btl) 1 drops OPB HS [facility] Stop: 10/24/23 20:59 Last Admin: 09/25/23 20:26 Dose: 1 drops Brimonidine Tartrate (Brimonidine Tartrate 0.2% 5ml) 1 drops OPL TID [facility] Stop: 10/24/23 08:59 Last Admin: 09/26/23 13:08 Dose: 1 drops Cyanocobalamin (Cyanocobalamin (B-12) 500 Mcg Tablet) 1,000 mcg PO QAM [facility] Stop: 10/24/23 08:59 Last Admin: 09/26/23 07:35 Dose: 1,000 mcg Dextrose (Dextrose 50% 50 Ml Syringe) 25 - 50 ml IV UD PRN; Protocol PRN Reason: Hypoglycemia Protocol Stop: 10/24/23 03:31 Dorzolamide/Timolol (Dorzolamide/Timolol 22.3/6.8mg/Ml 10 Ml Btl) 1 drops OPL TID [facility] Stop: 10/24/23 08:59 Last Admin: 09/26/23 13:08 Dose: 1 drops Doxycycline Hyclate (Doxycycline Hyclate 100 Mg Cap) 100 mg PO BID [facility] Stop: 10/03/23 09:59 Last Admin: 09/26/23 11:05 Dose: 100 mg Ferrous Sulfate (Ferrous Sulfate 325 Mg Tab) 325 mg PO BID@0630,1800 [facility] Stop: 10/24/23 08:59 Finasteride (Finasteride 5 Mg Tab) 5 mg PO QAM [facility] Stop: 10/24/23 08:59 Last Admin: 09/26/23 07:35 Dose: 5 mg Folic Acid (Folic Acid 1 Mg Tab) 1 mg PO HS [facility] Stop: 10/24/23 20:59 Last Admin: 09/25/23 20:29 Dose: 1 mg Furosemide (Furosemide Inj 20 Mg/2 Ml Vial) 20 mg IV [id number] [facility] Stop: 10/25/23 14:49 Last Admin: 09/26/23 13:08 Dose: 20 mg Glucagon (Glucagon For Inj 1 Mg Vial) 1 mg SQ UD PRN; Protocol PRN Reason: Hypoglycemia Protocol Stop: 10/24/23 03:31 Glucose (Glucose 10 Tab/Tube) 4 - 8 tab PO UD PRN; Protocol PRN Reason: Hypoglycemia Treatment Stop: 10/24/23 03:31 Glucose (Glucose 40% Gel 15 Gm Tube) 15 - 30 gm PO UD PRN; Protocol PRN Reason: Hypoglycemia Protocol Stop: 10/24/23 03:31 Insulin Aspart (Insulin Aspart Per Unit Charge) 0 units SC ACHS [facility] Stop: 10/24/23 07:29 Last Admin: 09/26/23 11:51 Dose: Not Given Metoprolol Succinate (Metoprolol Succ 25mg Ext Rel Tab) 25 mg PO QAM [facility] Stop: 10/25/23 14:59 Last Admin: 09/26/23 07:35 Dose: 25 mg Mirtazapine (Mirtazapine Tab 15 Mg Tab) 15 mg PO HS [facility] Stop: 10/24/23 20:59 Last Admin: 09/25/23 20:29 Dose: 15 mg Miscellaneous (Carbohydrates For Hypoglycemia ) 15 - 30 gm PO UD PRN PRN Reason: Hypoglycemia Protocol Stop: 10/24/23 03:31 Nitroglycerin (Nitroglycerin Sl 0.4 Mg/Tab Tab) 0.4 mg SL Q5M PRN PRN Reason: Chest Pain Stop: 10/24/23 03:31 Polyethylene Glycol (Polyethylene (Miralax) 17 Gm Pack) 17 gm PO DAILY PRN PRN Reason: Constipation Stop: 10/24/23 03:31 Potassium Chloride (Potassium Chloride 10 Meq Tabcr) 10 meq PO HS [facility] Stop: 10/24/23 20:59 Last Admin: 09/25/23 20:35 Dose: 10 meq Senna/Docusate Sodium (Docusate Sodium/Senna 50/8.6mg Tab) 2 tab PO DAILY [facility] Stop: 10/24/23 08:59 Last Admin: 09/26/23 07:45 Dose: Not Given Senna/Docusate Sodium (Docusate Sodium/Senna 50/8.6mg Tab) 1 tab PO HS [facility] Stop: 10/24/23 20:59 Last Admin: 09/25/23 20:30 Dose: 1 tab Tramadol HCl (Tramadol Hcl 50 Mg Tablet) 50 mg PO Q6H PRN PRN Reason: Pain Stop: 10/24/23 03:31 (6) Aortic stenosis Cardiac valve disease etiology: nonrheumatic Qualified Code(s): I35.0 - Nonrheumatic aortic (valve) stenosis
[2023-09-26] MEDS ORDERED: FERROUS SULFATE 325 MG TAB PO SCH (18:00)
[2023-09-26] MEDS: FOLIC ACID 1 MG TAB PO SCH (20:49)
[2023-09-26] MEDS: BIMATOPROST 0.01% OP SOLN 2.5 ML BTL OPB SCH (20:49)
[2023-09-26] MEDS: MIRTAZAPINE TAB 15 MG TAB PO SCH (21:10)
[2023-09-26] MEDS: POTASSIUM CHLORIDE 10 MEQ TABCR PO SCH (21:10)
[2023-09-27 06:35] LABS: BUN Creatinine Ratio 22.9 (10-20); Calcium 7.9 mg/dl (8.6-10.3); Creatinine Clr Calc Pharmacy 24.3 ml/min; Est GFR (African American) 38.6 ml/min; Est GFR (Non-African American) 33.3 ml/min; Phosphorus 2.7 mg/dl (2.5-4.9); Potassium 3.5 mmol/L (3.5-5.1)
[2023-09-27] MEDS: INSULIN ASPART PER UNIT CHARGE SC SCH ×4 (08:06→21:19)
[2023-09-27] MEDS: DORZOLAMIDE/TIMOLOL 22.3/6.8MG/ML 10 ML BTL OPL SCH ×3 (08:09→21:38)
[2023-09-27] MEDS: AMOXICILLIN/CLAVULANATE 500 MG TAB PO SCH ×2 (08:13→16:47)
[2023-09-27] MEDS: ATORVASTATIN 40 MG TAB PO SCH (08:14)
[2023-09-27] MEDS: DOXYCYCLINE HYCLATE 100 MG CAP PO SCH ×2 (08:14→21:38)
[2023-09-27] MEDS: CYANOCOBALAMIN (B-12) 500 MCG TABLET PO SCH (08:15)
[2023-09-27] MEDS: FINASTERIDE 5 MG TAB PO SCH (08:15)
[2023-09-27] MEDS: ASPIRIN 81 MG ECTAB PO SCH (08:16)
[2023-09-27] MEDS: METOPROLOL SUCC 25MG EXT REL TAB PO SCH (08:16)
[2023-09-27] MEDS: ISOSORBIDE MONO EXTENDED REL 30 MG TABCR PO SCH (08:17)
[2023-09-27] MEDS: DOCUSATE SODIUM/SENNA 50/8.6MG TAB PO SCH ×2 (08:21→21:38)
[2023-09-27] MEDS: BRIMONIDINE TARTRATE 0.2% 5ML OPL SCH ×3 (08:21→21:38)
[2023-09-27] MEDS: traMADol HCL 50 MG TABLET PO PRN (08:38)
--- NOTE | 2023-09-27 09:34 | Hospitalist Progress Note ---
Date of Service September 27, 2023 Assessment & Plan (1) Acute hypoxic respiratory failure: (2) Permanent atrial fibrillation: (3) Pleural effusion: (4) Acute heart failure with preserved ejection fraction (HFpEF): Plan 88-year-old male with past medical history significant for type 2 diabetes, hyperlipidemia, hiatal hernia, chronic systolic CHF, hypertension, moderate aortic stenosis, moderate aortic and mitral regurgitation, history of CAD s/p CABG, persistent atrial fibrillation, s/p pacemaker, vitamin B12 deficiency, BPH, iron deficiency anemia, depression, blindness of right eye, blurry vision left eye, frequent falls frequently, balance disorder, who lives at [facility] presents with shortness of breath and requiring 6 L oxygen and found to have pleural effusions, CHF and possible pneumonia. Not on home oxygen. Acute hypoxic respiratory failure Acute on chronic systolic and diastolic CHF. Left-sided pleural effusion Possible aspiration pneumonia Patient presented from [facility] with shortness of breath. Respiratory bio fire negative CTA chest personally reviewed; large pleural effusion seen on the left side. Hiatal hernia present. No PE. His chest x-ray from April of this year did not show any pleural effusion. MRSA nares positive VFSS done; has aspiration of multiple consistencies. Echocardiogram shows EF of 55 to 60% with mild concentric LVH. Large left-sided pleural effusion. Started on Lasix 20 mg IV twice daily-held for worsening creatinine. Strict input and output monitoring, daily weights Thoracentesis on 09/25 with 1250cc out. On ceftriaxone and vancomycin-transitioned him to Augmentin/doxy Hypoxia has resolved and he is clinically improved but remains very weak. Cont aspiration precautions Acute kidney injury Creatinine still elevated to 1.8 today. Cont holding Lasix. Will give a small amt of IVF overnight and repeat BMP in am. Will resume Lasix 20mg PO daily per cardiology when creatinine has returned to baseline. Cont to monitor on PCU for now. Demand ischemia Mild elevation of troponin Cardiology on board; Coreg and Imdur on hold due to hypotension. Cont metoprolol 25 mg from today as per recommendation by cardiology. Coreg discontinued. Cont home Imdur. Type 2 diabetes mellitus chronic, well controlled. will use short acting insulin for correction only as needed. Hypertension On Coreg and Imdur and losartan at home Imdur and losartan on hold. Coreg changed to metoprolol-BP at goal History of CAD s/p CABG chronic, stable. On aspirin and statin, BB Atrial fibrillation chronic, stable. EKG with V -paced rhythm. History of symptomatic bradycardia S/p pacemaker On aspirin Eliquis stopped because of falls Continues on metoprolol DVT prophylaxis SCDs and heparin subcu CODE STATUS DNR/DNI as per discussion with the correction and also with his [id number] Disposition: to rehab after resolution of creatinine to baseline. Poss 1-2 days. DO Emmie Grijalva Hospitalist Admission and Anticipated Discharge Date Admission Date: September 24, 2023 Subjective 88-year-old man admitted for acute respiratory failure with hypoxia status post left-sided thoracentesis on 09/25 with removal of 1200 cc of fluid. Today he reports no pain and feels his breathing is improved Denies any other complaints/concerns Tolerating PO States he doesn't ambulate at baseline and hasn't gotten out of bed today. Physical Exam Physical Exam: CONSTITUTIONAL: thin, frail, elderly, vitals as above, NAD EYES: normal conjunctivae, ENT: external ear and nose normal, oropharynx clear, NECK: trachea midline, RESPIRATORY: clear to auscultation bilaterally, no crackles, rales or wheezes, normal respiratory effort CARDIOVASCULAR: regular rate and rhythm, S1 and 2 heard without murmurs, gallops or rubs, no JVD, no peripheral edema, CHEST: inspection of chest was normal GASTROINTESTINAL: normal bowel sounds, soft, nontender, ND, no guarding MUSCULOSKELETAL: strength 5/5 throughout, head is normocephalic and atraumatic, SKIN: warm and dry NEUROLOGIC: CN 2-12 grossly intact, no sensory deficit, normal cognition, normal speech, no tremor PSYCHIATRIC: alert cooperative and oriented to person, place and time. Euthymic mood, makes good eye contact, language grossly intact, recent and remote memory grossly intact. Results & Data Results & Data Vital Signs (Past 12 Hours) Vital Signs Temp Pulse Pulse Resp BP Pulse Ox O2 Del Method 09/27/23 07:26 64 09/27/23 07:24 36.7 C 60 19 166/67 H 98 Room Air 09/27/23 03:10 36.3 C L 60 18 154/68 H 99 Room Air 09/26/23 23:03 36.3 C L 60 18 124/61 97 Room Air 09/26/23 22:00 60 Laboratory Results [facility] 09/27/23 05:27 Sodium 139 Potassium 3.5 Chloride 108 H Carbon Dioxide 23 BUN 41 H Creatinine 1.79 H Glucose 76 Calcium 7.9 L Medications Administered Current Inpatient Medications Acetaminophen (Acetaminophen 325 Mg Tab) 650 mg PO Q4H PRN PRN Reason: Pain or Fever Stop: 10/24/23 03:31 Amoxicillin/Clavulanate Potassium (Amoxicillin/Clavulanate 500 Mg Tab) 1 tab PO BIDM [facility]; Protocol Stop: 10/03/23 09:59 Last Admin: 09/27/23 08:13 Dose: 1 tab Aspirin (Aspirin 81 Mg Ectab) 81 mg PO DAILY [facility] Stop: 10/24/23 08:59 Last Admin: 09/27/23 08:16 Dose: 81 mg Atorvastatin Calcium (Atorvastatin 40 Mg Tab) 40 mg PO QAM [facility] Stop: 10/24/23 08:59 Last Admin: 09/27/23 08:14 Dose: 40 mg Bimatoprost (Bimatoprost 0.01% Op Soln 2.5 Ml Btl) 1 drops OPB HS [facility] Stop: 10/24/23 20:59 Last Admin: 09/26/23 20:49 Dose: 1 drops Brimonidine Tartrate (Brimonidine Tartrate 0.2% 5ml) 1 drops OPL TID [facility] Stop: 10/24/23 08:59 Last Admin: 09/27/23 08:21 Dose: 1 drops Cyanocobalamin (Cyanocobalamin (B-12) 500 Mcg Tablet) 1,000 mcg PO QAM [facility] Stop: 10/24/23 08:59 Last Admin: 09/27/23 08:15 Dose: 1,000 mcg Dextrose (Dextrose 50% 50 Ml Syringe) 25 - 50 ml IV UD PRN; Protocol PRN Reason: Hypoglycemia Protocol Stop: 10/24/23 03:31 Dorzolamide/Timolol (Dorzolamide/Timolol 22.3/6.8mg/Ml 10 Ml Btl) 1 drops OPL TID [facility] Stop: 10/24/23 08:59 Last Admin: 09/27/23 08:09 Dose: 1 drops Doxycycline Hyclate (Doxycycline Hyclate 100 Mg Cap) 100 mg PO BID [facility] Stop: 10/03/23 09:59 Last Admin: 09/27/23 08:14 Dose: 100 mg Ferrous Sulfate (Ferrous Sulfate 325 Mg Tab) 325 mg PO BID@0630,1800 [facility] Stop: 10/24/23 08:59 Finasteride (Finasteride 5 Mg Tab) 5 mg PO QAM [facility] Stop: 10/24/23 08:59 Last Admin: 09/27/23 08:15 Dose: 5 mg Folic Acid (Folic Acid 1 Mg Tab) 1 mg PO HS [facility] Stop: 10/24/23 20:59 Last Admin: 09/26/23 20:49 Dose: 1 mg Furosemide (Furosemide Inj 20 Mg/2 Ml Vial) 20 mg IV [id number] [facility] Stop: 10/25/23 14:49 Last Admin: 09/26/23 13:08 Dose: 20 mg Glucagon (Glucagon For Inj 1 Mg Vial) 1 mg SQ UD PRN; Protocol PRN Reason: Hypoglycemia Protocol Stop: 10/24/23 03:31 Glucose (Glucose 10 Tab/Tube) 4 - 8 tab PO UD PRN; Protocol PRN Reason: Hypoglycemia Treatment Stop: 10/24/23 03:31 Glucose (Glucose 40% Gel 15 Gm Tube) 15 - 30 gm PO UD PRN; Protocol PRN Reason: Hypoglycemia Protocol Stop: 10/24/23 03:31 Insulin Aspart (Insulin Aspart Per Unit Charge) 0 units SC ACHS [facility] Stop: 10/24/23 07:29 Last Admin: 09/27/23 08:06 Dose: Not Given Isosorbide Mononitrate (Isosorbide [place] Extended Rel 30 Mg Tabcr) 30 mg PO QAM [facility] Stop: 10/27/23 08:59 Last Admin: 09/27/23 08:17 Dose: 30 mg Metoprolol Succinate (Metoprolol Succ 25mg Ext Rel Tab) 25 mg PO QAM [facility] Stop: 10/25/23 14:59 Last Admin: 09/27/23 08:16 Dose: 25 mg Mirtazapine (Mirtazapine Tab 15 Mg Tab) 15 mg PO HS [facility] Stop: 10/24/23 20:59 Last Admin: 09/26/23 21:10 Dose: 15 mg Miscellaneous (Carbohydrates For Hypoglycemia ) 15 - 30 gm PO UD PRN PRN Reason: Hypoglycemia Protocol Stop: 10/24/23 03:31 Nitroglycerin (Nitroglycerin Sl 0.4 Mg/Tab Tab) 0.4 mg SL Q5M PRN PRN Reason: Chest Pain Stop: 10/24/23 03:31 Polyethylene Glycol (Polyethylene (Miralax) 17 Gm Pack) 17 gm PO DAILY PRN PRN Reason: Constipation Stop: 10/24/23 03:31 Potassium Chloride (Potassium Chloride 10 Meq Tabcr) 10 meq PO HS [facility] Stop: 10/24/23 20:59 Last Admin: 09/26/23 21:10 Dose: 10 meq Senna/Docusate Sodium (Docusate Sodium/Senna 50/8.6mg Tab) 2 tab PO DAILY [facility] Stop: 10/24/23 08:59 Last Admin: 09/27/23 08:21 Dose: 2 tab Senna/Docusate Sodium (Docusate Sodium/Senna 50/8.6mg Tab) 1 tab PO HS [facility] Stop: 10/24/23 20:59 Last Admin: 09/26/23 23:54 Dose: Not Given Tramadol HCl (Tramadol Hcl 50 Mg Tablet) 50 mg PO Q6H PRN PRN Reason: Pain Stop: 10/24/23 03:31 Last Admin: 09/27/23 08:38 Dose: 50 mg
--- NOTE | 2023-09-27 11:57 | Cardiology Progress Note ---
Date of Service September 27, 2023 Assessment & Plan (1) Acute hypoxic respiratory failure: (2) Acute on chronic combined systolic (congestive) and diastolic (congestive) heart failure: Plan: Ischemic heart disease status post CABG in [place], 2007 LVEF 50 to 55% per echo 02/2021 (3) Pleural effusion: (4) Permanent atrial fibrillation: (5) S/P cardiac pacemaker procedure: Plan: Symptomatic bradycardia, status post [place] permanent pacemaker, 06/05/2016--per Dr. Rich only 8 months of battery life per office visit note 08/2023 Permanent atrial fibrillation, Eliquis discontinued due to falls 09/18/[address] Rich (6) Aortic stenosis: Plan: Moderate per echo dated 03/04/2021 Plan IMPRESSION: Medically complex 88-year-old male who presented to [facility] emergency department due to acute hypoxic respiratory failure. Found to have a large left pleural effusion and possible aspiration pneumonia. Known history of permanent atrial fibrillation status post permanent pacemaker. PLAN: Acute on chronic CHF/Left pleural effusion: Hypoxia likely multifactorial secondary to possible aspiration pneumonia with superimposed acute on chronic CHF. Large left pleural effusion noted on CT and chest x-ray. Pulm consulted and un derwent left sided thoracentesis on 09/25 removing 1250 cc of serous fluid. Improved chest xray and respiratory status post thoracentesis. IV furosemide was resumed, but unfortunately creatinine increased from baseline (1.1-1.3) to 1.9. Creatinine 1.79 this morning. Hold additional diuretics. Possible aspiration pneumonia, antibiotics per primary team. NPO until evaluated by speech. Permanent atrial fibrillation/permanent pacemaker ([place]): Patient ventricular paced in the 60s with an underlying rhythm of atrial fibrillation Not on anticoagulation due to frequent falls--Eliquis discontinued 09/18/2023 Carvedilol was on hold due to hypotension. BP now improved. Metoprolol initiated due to afib and low BP Pacemaker interrogation this morning with appropriate function and battery longevity of 10.4 months. No concerning findings. Ischemic heart disease: Goal-directed medical therapy with carvedilol, losartan, and Imdur. Many an tihypertensives on hold. Resume as able. Carvedilol changed to metoprolol 25 mg daily Continue aspirin and statin. Moderate to possible severe aortic stenosis per echo during this admission -Would recommend conservative medical management given multiple comorbidities Case discussed with Dr. Ferrari-- will follow. I spent a total of 35 minutes on the date of service in preparation, delivery, and documentation of the care provided to this patient, excluding any time spent in the performance of separately billed services. Admission and Anticipated Discharge Date Admission Date: September 24, 2023 Supervising Physician Co-Signing Physician Notes 88-year-old patient admitted with multifactorial acute respiratory failure with hypoxia. Left-sided thoracentesis performed 09/25/23 with removal of 1200 cc fluid. Creatinine trending down from 1.9-1.79 today. IV diuretics on hold since 09/26/2023. Poor historian. Offers no complaints. PE: VSS. General: NAD, awake and alert. Hearing impaired. Heart: Irregular rhythm, normal S1-S2, 2/6 systolic ejection murmur heard best at the right second costal space. Pulmonary: No rhonchi or wheeze. Diminished breath sounds at the left base. Extremities: No edema. A/P: Agree with above PA-C history, physical exam, assessment and plan. Clinically improved status post thoracentesis. Hold diuretic therapy with acute renal insufficiency. Repeat basic metabolic panel in AM. Resume Lasix 20 mg p.o. daily when renal function has returned to baseline. Rate controlled atrial fibrillation on telemetry. Anticoagulation discontinued due to fall risk. Carvedilol discontinued in favor of Toprol-XL due to borderline hypotension. Pacemaker interrogation reveals 10 months battery life. Continue aspirin and statin. Antibiotics and aspiration precautions as per internal medicine. No further inpatient cardiac testing or intervention recommended. Outpatient follow-up as scheduled. Cardiology will sign off. Please call with additional concerns/questions. Subjective Patient resting in bed. Reports feeling "ok". Denies acute complaints. Review of Systems Review of Systems: All systems reviewed & are unremarkable except as noted in HPI & below Physical Exam Constitutional: + ill appearing and + thin; no acute dis tress Neck: normal visual inspection and trachea midline Respiratory: no labored breathing Auscultation: no diminished lung sounds Cardiovascular: Heart Sounds: normal S1, normal S2 and + murmur (+2/6 systolic, distant heart sounds ) Vessels: no JVD Extremities: no edema Chest (Breasts): Chest: + pacemaker (left chest ) Gastrointestinal (Abdomen): normal bowel sounds, soft, nontender, no hepatosplenomegaly Skin: no rashes, warm and dry Psychiatric: Orientation: alert, oriented to person and cooperative Results & Data Vital Signs (Past 12 Hours) Vital Signs Temp Pulse Pulse Resp BP Pulse Ox O2 Del Method 09/27/23 11: 36.3 C L 90 18 116/56 L 95 Room Air 09/27/23 07:30 Room Air 09/27/23 07:26 64 09/27/23 07:24 36.7 C 60 19 166/67 H 98 Room Air 09/27/23 03:10 36.3 C L 60 18 154/68 H 99 Room Air Laboratory Results Comprehensive Metabolic Panel 09/27/23 Range/Units 05:27 Sodium 139 (136-145) mmol/L Potassium 3.5 (3.5-5.1) mmol/L Chloride 108 H (98-107) mmol/L Carbon Dioxide 23 (21-32) mmol/L BUN 41 H (6-23) mg/dl Creatinine 1.79 H (0.6-1.4) mg/dl Glucose 76 (70-99(Fasting)) mg/dl Calcium 7.9 L (8.6-10.3) mg/dl Intake and Output 09/26/23 09/27/23 09/27/23 22:59 06:59 14:59 Intake Total 100 / 885 Output Total 100 / 100 Balance 100 / 885 -100 / -100 Intake: Oral 100 / 620 Output: Urine 100 / 100 Other: Other Intake Source sips # Unmeasured Voids 1 1 Weight 59 kg Weight Measurement Method Built in [facility] Diagnostic Findings Telemetry reviewed: Underlying atrial fibrillation, ventricular paced. Device interrogation reviewed from today: Appropriate function and battery longevity of approx 10.4 months. No ventricular high rate episodes. Medications Administered Current Inpatient Medications Acetaminophen (Acetaminophen 325 Mg Tab) 650 mg PO Q4H PRN PRN Reason: Pain or Fever Stop: 10/24/23 03:31 Amoxicillin/Clavulanate Potassium (Amoxicillin/Clavulanate 500 Mg Tab) 1 tab PO BIDM [facility]; Protocol Stop: 10/03/23 09:59 Last Admin: 09/27/23 08:13 Dose: 1 tab Aspirin (Aspirin 81 Mg Ectab) 81 mg PO DAILY [facility] Stop: 10/24/23 08:59 Last Admin: 09/27/23 08:16 Dose: 81 mg Atorvastatin Calcium (Atorvastatin 40 Mg Tab) 40 mg PO QAM [facility] Stop: 10/24/23 08:59 Last Admin: 09/27/23 08:14 Dose: 40 mg Bimatoprost (Bimatoprost 0.01% Op Soln 2.5 Ml Btl) 1 drops OPB HS [facility] Stop: 10/24/23 20:59 Last Admin: 09/26/23 20:49 Dose: 1 drops Brimonidine Tartrate (Brimonidine Tartrate 0.2% 5ml) 1 drops OPL TID [facility] Stop: 10/24/23 08:59 Last Admin: 09/27/23 08:21 Dose: 1 drops Cyanocobalamin (Cyanocobalamin (B-12) 500 Mcg Tablet) 1,000 mcg PO QAM [facility] Stop: 10/24/23 08:59 Last Admin: 09/27/23 08:15 Dose: 1,000 mcg Dextrose (Dextrose 50% 50 Ml Syringe) 25 - 50 ml IV UD PRN; Protocol PRN Reason: Hypoglycemia Protocol Stop: 10/24/23 03:31 Dorzolamide/Timolol (Dorzolamide/Timolol 22.3/6.8mg/Ml 10 Ml Btl) 1 drops OPL TID [facility] Stop: 10/24/23 08:59 Last Admin: 09/27/23 08:09 Dose: 1 drops Doxycycline Hyclate (Doxycycline Hyclate 100 Mg Cap) 100 mg PO BID [facility] Stop: 10/03/23 09:59 Last Admin: 09/27/23 08:14 Dose: 100 mg Ferrous Sulfate (Ferrous Sulfate 325 Mg Tab) 325 mg PO BID@0630,1800 [facility] Stop: 10/24/23 08:59 Finasteride (Finasteride 5 Mg Tab) 5 mg PO QAM [facility] Stop: 10/24/23 08:59 Last Admin: 09/27/23 08:15 Dose: 5 mg Folic Acid (Folic Acid 1 Mg Tab) 1 mg PO HS [facility] Stop: 10/24/23 20:59 Last Admin: 09/26/23 20:49 Dose: 1 mg Furosemide (Furosemide Inj 20 Mg/2 Ml Vial) 20 mg IV [id number] [facility] Stop: 10/25/23 14:49 Last Admin: 09/26/23 13:08 Dose: 20 mg Glucagon (Glucagon For Inj 1 Mg Vial) 1 mg SQ UD PRN; Protocol PRN Reason: Hypoglycemia Protocol Stop: 10/24/23 03:31 Glucose (Glucose 10 Tab/Tube) 4 - 8 tab PO UD PRN; Protocol PRN Reason: Hypoglycemia Treatment Stop: 10/24/23 03:31 Glucose (Glucose 40% Gel 15 Gm Tube) 15 - 30 gm PO UD PRN; Protocol PRN Reason: Hypoglycemia Protocol Stop: 10/24/23 03:31 Insulin Aspart (Insulin Aspart Per Unit Charge) 0 units SC ACHS [facility] Stop: 10/24/23 07:29 Last Admin: 09/27/23 08:06 Dose: Not Given Isosorbide Mononitrate (Isosorbide [place] Extended Rel 30 Mg Tabcr) 30 mg PO QAM [facility] Stop: 10/27/23 08:59 Last Admin: 09/27/23 08:17 Dose: 30 mg Metoprolol Succinate (Metoprolol Succ 25mg Ext Rel Tab) 25 mg PO QAM [facility] Stop: 10/25/23 14:59 Last Admin: 09/27/23 08:16 Dose: 25 mg Mirtazapine (Mirtazapine Tab 15 Mg Tab) 15 mg PO HS [facility] Stop: 10/24/23 20:59 Last Admin: 09/26/23 21:10 Dose: 15 mg Miscellaneous (Carbohydrates For Hypoglycemia ) 15 - 30 gm PO UD PRN PRN Reason: Hypoglycemia Protocol Stop: 10/24/23 03:31 Nitroglycerin (Nitroglycerin Sl 0.4 Mg/Tab Tab) 0.4 mg SL Q5M PRN PRN Reason: Chest Pain Stop: 10/24/23 03:31 Polyethylene Glycol (Polyethylene (Miralax) 17 Gm Pack) 17 gm PO DAILY PRN PRN Reason: Constipation Stop: 10/24/23 03:31 Potassium Chloride (Potassium Chloride 10 Meq Tabcr) 10 meq PO HS [facility] Stop: 10/24/23 20:59 Last Admin: 09/26/23 21:10 Dose: 10 meq Senna/Docusate Sodium (Docusate Sodium/Senna 50/8.6mg Tab) 2 tab PO DAILY [facility] Stop: 10/24/23 08:59 Last Admin: 09/27/23 08:21 Dose: 2 tab Senna/Docusate Sodium (Docusate Sodium/Senna 50/8.6mg Tab) 1 tab PO HS [facility] Stop: 10/24/23 20:59 Last Admin: 09/26/23 23:54 Dose: Not Given Tramadol HCl (Tramadol Hcl 50 Mg Tablet) 50 mg PO Q6H PRN PRN Reason: Pain Stop: 10/24/23 03:31 Last Admin: 09/27/23 08:38 Dose: 50 mg (6) Aortic stenosis Cardiac valve disease etiology: nonrheumatic Qualified Code(s): I35.0 - Nonrheumatic aortic (valve) stenosis
[2023-09-27] MEDS: SODIUM CHLORIDE 0.9% 1,000 ML IV SCH ×2 (18:27→21:29)
[2023-09-27] MEDS: BIMATOPROST 0.01% OP SOLN 2.5 ML BTL OPB SCH (21:37)
[2023-09-27] MEDS: FOLIC ACID 1 MG TAB PO SCH (21:38)
[2023-09-27] MEDS: POTASSIUM CHLORIDE 10 MEQ TABCR PO SCH (21:38)
[2023-09-27] MEDS: MIRTAZAPINE TAB 15 MG TAB PO SCH (21:39)
[2023-09-28 07:20] LABS: Hematocrit (blood only) 29.2 % (42.0-52.0); Mean Corpuscular Hemoglobin 29.3 pg (25.0-34.0); Mean Corpuscular Hgb Conc 30.8 g/dL (32.0-36.0); Mean Corpuscular Volume 95.1 fL (80.0-100.0); Mean Platelet Volume 10.2 fL (9.4-12.4); Platelet Count 231 K/uL (130-400); RDW Coefficient of Variation 18.6 % (11.5-14.5); RDW Standard Deviation 62.9 fL (36.4-46.3); Red Blood Count 3.07 M/uL (4.70-6.10); White Blood Count 6.45 K/ul (4.8-10.8)
[2023-09-28 07:30] LABS: Calcium 7.8 mg/dl (8.6-10.3); Potassium 3.5 mmol/L (3.5-5.1)
[2023-09-28 07:36] LABS: Creatinine Clr Calc Pharmacy 28.3 ml/min; Est GFR (African American) 44.2 ml/min; Est GFR (Non-African American) 38.2 ml/min
[2023-09-28] MEDS: INSULIN ASPART PER UNIT CHARGE SC SCH ×4 (08:04→20:54)
--- NOTE | 2023-09-28 08:58 | Hospitalist Progress Note ---
Date of Service September 28, 2023 Assessment & Plan (1) Acute hypoxic respiratory failure: (2) Permanent atrial fibrillation: (3) Pleural effusion: (4) Acute heart failure with preserved ejection fraction (HFpEF): Plan 88-year-old male with past medical history significant for type 2 diabetes, hyperlipidemia, hiatal hernia, chronic systolic CHF, hypertension, moderate aortic stenosis, moderate aortic and mitral regurgitation, history of CAD s/p CABG, persistent atrial fibrillation, s/p pacemaker, vitamin B12 deficiency, BPH, iron deficiency anemia, depression, blindness of right eye, blurry vision left eye, frequent falls frequently, balance disorder, who lives at [facility] presents with shortness of breath and requiring 6 L oxygen and found to have pleural effusions, CHF and possible pneumonia. Not on home oxygen. Acute hypoxic respiratory failure Acute on chronic systolic and diastolic CHF. Left-sided pleural effusion Possible aspiration pneumonia Patient presented from [facility] with shortness of breath. Respiratory bio fire negative CTA chest personally reviewed; large pleural effusion seen on the left side. Hiatal hernia present. No PE. His chest x-ray from April of this year did not show any pleural effusion. MRSA nares positive VFSS done; has aspiration of multiple consistencies. Echocardiogram shows EF of 55 to 60% with mild concentric LVH. Large left-sided pleural effusion. Started on Lasix 20 mg IV twice daily-held for worsening creatinine. Strict input and output monitoring, daily weights Thoracentesis on 09/25 with 1250cc out. On ceftriaxone and vancomycin-transitioned him to Augmentin/doxy (intermittently required transition back to IV bc patient was refusing oral meds, changed back to oral later bc he lost IV access) Hypoxia has resolved and he is clinically improved but remains very weak. Cont aspiration precautions Acute kidney injury Creatinine still elevated to 1.7 today. Cont holding Lasix. IVF overnight didn't improve creatinine much but he was found to be retaining today and this may be better as long as retention doesn't persist. Cont bladder scans as above. Repeat BMP in am. Will resume Lasix 20mg PO daily per cardiology when creatinine has returned to baseline. Cont to monitor on PCU for now. Demand ischemia Mild elevation of troponin Cardiology on board; Coreg and Imdur on hold due to hypotension. Cont metoprolol 25 mg from today as per recommendation by cardiology. Coreg discontinued. Cont home Imdur. Type 2 diabetes mellitus chronic, well controlled. will use short acting insulin for correction only as needed. Hypertension On Coreg and Imdur and losartan at home Imdur and losartan on hold. Coreg changed to metoprolol-BP at goal History of CAD s/p CABG chronic, stable. On aspirin and statin, BB Atrial fibrillation chronic, stable. EKG with V -paced rhythm. History of symptomatic bradycardia S/p pacemaker On aspirin Eliquis stopped because of falls Continues on metoprolol DVT prophylaxis SCDs and heparin subcu CODE STATUS DNR/DNI as per discussion with the [facility] and also with his [id number] Disposition: to rehab after resolution of creatinine to baseline. Poss 1-2 days. [facility] Hospital[facility] Admission and Anticipated Discharge Date Admission Date: September 24, 2023 Subjective 88-year-old man admitted for acute respiratory failure with hypoxia status post left-sided thoracentesis on 09/25 with removal of 1200 cc of fluid. Fussy this morning with mood improved after straight cath provided some relief continue to bladder scan to monitor for additional urinary retention Denies any other complaints/concerns Tolerating PO Remains weak and not getting out of bed PT/OT consults placed. Physical Exam Physical Exam: CONSTITUTIONAL: thin, frail, elderly, vitals as above, NAD EYES: normal conjunctivae, ENT: external ear and nose normal, oropharynx clear, NECK: trachea midline, RESPIRATORY: clear to auscultation bilaterally, no crackles, rales or wheezes, normal respiratory effort CARDIOVASCULAR: regular rate and rhythm, S1 and 2 heard without murmurs, gallops or rubs, no JVD, no peripheral edema, CHEST: inspection of chest was normal GASTROINTESTINAL: normal bowel sounds, soft, nontender, ND, no guarding MUSCULOSKELETAL: strength 5/5 throughout, head is normocephalic and atraumatic, SKIN: warm and dry NEUROLOGIC: CN 2-12 grossly intact, no sensory deficit, normal cognition, normal speech, no tremor PSYCHIATRIC: alert cooperative and oriented to person, place and time. Euthymic mood, makes good eye contact, language grossly intact, recent and remote memory grossly intact. Results & Data Results & Data Vital Signs (Past 12 Hours) Vital Signs Temp Pulse Pulse Resp BP Pulse Ox O2 Del Method 09/28/23 07:21 63 09/28/23 03:00 36.4 C L 60 14 146/58 H 96 Room Air 09/27/23 22:43 36.7 C 60 16 127/53 L 97 Room Air 09/27/23 22:00 60 Laboratory Results Short CBC 09/28/23 Range/Units 06:08 WBC 6.45 (4.8-10.8) K/ul Hgb 9.0 L (14.0-18.0) g/dl Hct 29.2 L (42.0-52.0) % Plt Count 231 (130-400) K/uL BMP 09/28/23 06:08 Sodium 139 Potassium 3.5 Chloride 110 H Carbon Dioxide 22 BUN 40 H Creatinine 1.60 H Glucose 91 Calcium 7.8 L Medications Administered Current Inpatient Medications Acetaminophen (Acetaminophen 325 Mg Tab) 650 mg PO Q4H PRN PRN Reason: Pain or Fever Stop: 10/24/23 03:31 Amoxicillin/Clavulanate Potassium (Amoxicillin/Clavulanate 500 Mg Tab) 1 tab PO BIDM [facility]; Protocol Stop: 10/03/23 09:59 Last Admin: 09/27/23 16:47 Dose: 1 tab Aspirin (Aspirin 81 Mg Ectab) 81 mg PO DAILY [facility] Stop: 10/24/23 08:59 Last Admin: 09/27/23 08:16 Dose: 81 mg Atorvastatin Calcium (Atorvastatin 40 Mg Tab) 40 mg PO QAM [facility] Stop: 10/24/23 08:59 Last Admin: 09/27/23 08:14 Dose: 40 mg Bimatoprost (Bimatoprost 0.01% Op Soln 2.5 Ml Btl) 1 drops OPB HS [facility] Stop: 10/24/23 20:59 Last Admin: 09/27/23 21:37 Dose: Not Given Brimonidine Tartrate (Brimonidine Tartrate 0.2% 5ml) 1 drops OPL TID [facility] Stop: 10/24/23 08:59 Last Admin: 09/27/23 21:38 Dose: Not Given Cyanocobalamin (Cyanocobalamin (B-12) 500 Mcg Tablet) 1,000 mcg PO QAM [facility] Stop: 10/24/23 08:59 Last Admin: 09/27/23 08:15 Dose: 1,000 mcg Dextrose (Dextrose 50% 50 Ml Syringe) 25 - 50 ml IV UD PRN; Protocol PRN Reason: Hypoglycemia Protocol Stop: 10/24/23 03:31 Dorzolamide/Timolol (Dorzolamide/Timolol 22.3/6.8mg/Ml 10 Ml Btl) 1 drops OPL TID [facility] Stop: 10/24/23 08:59 Last Admin: 09/27/23 21:38 Dose: Not Given Doxycycline Hyclate (Doxycycline Hyclate 100 Mg Cap) 100 mg PO BID [facility] Stop: 10/03/23 09:59 Last Admin: 09/27/23 21:38 Dose: Not Given Ferrous Sulfate (Ferrous Sulfate 325 Mg Tab) 325 mg PO BID@0630,1800 [facility] Stop: 10/24/23 08:59 Finasteride (Finasteride 5 Mg Tab) 5 mg PO QAM [facility] Stop: 10/24/23 08:59 Last Admin: 09/27/23 08:15 Dose: 5 mg Folic Acid (Folic Acid 1 Mg Tab) 1 mg PO HS [facility] Stop: 10/24/23 20:59 Last Admin: 09/27/23 21:38 Dose: Not Given Furosemide (Furosemide Inj 20 Mg/2 Ml Vial) 20 mg IV [id number] [facility] Stop: 10/25/23 14:49 Last Admin: 09/26/23 13:08 Dose: 20 mg Glucagon (Glucagon For Inj 1 Mg Vial) 1 mg SQ UD PRN; Protocol PRN Reason: Hypoglycemia Protocol Stop: 10/24/23 03:31 Glucose (Glucose 10 Tab/Tube) 4 - 8 tab PO UD PRN; Protocol PRN Reason: Hypoglycemia Treatment Stop: 10/24/23 03:31 Glucose (Glucose 40% Gel 15 Gm Tube) 15 - 30 gm PO UD PRN; Protocol PRN Reason: Hypoglycemia Protocol Stop: 10/24/23 03:31 Insulin Aspart (Insulin Aspart Per Unit Charge) 0 units SC ACHS [facility] Stop: 10/24/23 07:29 Last Admin: 09/28/23 08:04 Dose: Not Given Isosorbide Mononitrate (Isosorbide [place] Extended Rel 30 Mg Tabcr) 30 mg PO QAM [facility] Stop: 10/27/23 08:59 Last Admin: 09/27/23 08:17 Dose: 30 mg Metoprolol Succinate (Metoprolol Succ 25mg Ext Rel Tab) 25 mg PO QAM [facility] Stop: 10/25/23 14:59 Last Admin: 09/27/23 08:16 Dose: 25 mg Mirtazapine (Mirtazapine Tab 15 Mg Tab) 15 mg PO HS [facility] Stop: 10/24/23 20:59 Last Admin: 09/27/23 21:39 Dose: Not Given Miscellaneous (Carbohydrates For Hypoglycemia ) 15 - 30 gm PO UD PRN PRN Reason: Hypoglycemia Protocol Stop: 10/24/23 03:31 Nitroglycerin (Nitroglycerin Sl 0.4 Mg/Tab Tab) 0.4 mg SL Q5M PRN PRN Reason: Chest Pain Stop: 10/24/23 03:31 Polyethylene Glycol (Polyethylene (Miralax) 17 Gm Pack) 17 gm PO DAILY PRN PRN Reason: Constipation Stop: 10/24/23 03:31 Potassium Chloride (Potassium Chloride 10 Meq Tabcr) 10 meq PO HS [facility] Stop: 10/24/23 20:59 Last Admin: 09/27/23 21:38 Dose: Not Given Senna/Docusate Sodium (Docusate Sodium/Senna 50/8.6mg Tab) 2 tab PO DAILY [facility] Stop: 10/24/23 08:59 Last Admin: 09/27/23 08:21 Dose: 2 tab Senna/Docusate Sodium (Docusate Sodium/Senna 50/8.6mg Tab) 1 tab PO HS [facility] Stop: 10/24/23 20:59 Last Admin: 09/27/23 21:38 Dose: Not Given Tramadol HCl (Tramadol Hcl 50 Mg Tablet) 50 mg PO Q6H PRN PRN Reason: Pain Stop: 10/24/23 03:31 Last Admin: 09/27/23 08:38 Dose: 50 mg
[2023-09-28] MEDS ORDERED: cefTRIAXone SODIUM 1,000 MG in DEXTROSE 5 % MINI-B 50 ML IV SCH (10:00)
[2023-09-28] MEDS: BRIMONIDINE TARTRATE 0.2% 5ML OPL SCH ×3 (10:28→20:52)
[2023-09-28] MEDS: AMOXICILLIN/CLAVULANATE 500 MG TAB PO SCH ×2 (10:28→20:55)
[2023-09-28] MEDS: CYANOCOBALAMIN (B-12) 500 MCG TABLET PO SCH (10:28)
[2023-09-28] MEDS: ASPIRIN 81 MG ECTAB PO SCH (10:28)
[2023-09-28] MEDS: ATORVASTATIN 40 MG TAB PO SCH (10:28)
[2023-09-28] MEDS: DORZOLAMIDE/TIMOLOL 22.3/6.8MG/ML 10 ML BTL OPL SCH ×3 (10:29→20:53)
[2023-09-28] MEDS: DOCUSATE SODIUM/SENNA 50/8.6MG TAB PO SCH ×2 (10:29→21:06)
[2023-09-28] MEDS: ISOSORBIDE MONO EXTENDED REL 30 MG TABCR PO SCH (10:29)
[2023-09-28] MEDS: METOPROLOL SUCC 25MG EXT REL TAB PO SCH (10:29)
[2023-09-28] MEDS: DOXYCYCLINE HYCLATE 100 MG CAP PO SCH ×2 (10:29→20:55)
[2023-09-28] MEDS: FINASTERIDE 5 MG TAB PO SCH (10:29)
[2023-09-28] MEDS ORDERED: DOXYCYCLINE HYCLATE 100 MG in DEXTROSE 5% MINI-B 100 ML IV SCH (10:45)
[2023-09-28 11:14] LABS: Creatinine Urine Random 70.1 mg/dl
[2023-09-28] MEDS: traMADol HCL 50 MG TABLET PO PRN ×2 (13:29→21:07)
[2023-09-28 15:35] LABS: Appearance Urine Clear (Clear); Bilirubin Urine Negative (Negative); Blood Urine Negative (Negative); Color Urine Yellow; Glucose Urine UA Negative (Negative); Ketones Urine Negative (Negative); Leukocyte Esterase Urine Negative (Negative); Nitrite Urine Negative (Negative); Protein Urine Negative (Negative); Specific Gravity Urine 1.021 (1.000-1.030); Urobilinogen Urine Negative (Negative)
[2023-09-28] MEDS: BIMATOPROST 0.01% OP SOLN 2.5 ML BTL OPB SCH (20:52)
[2023-09-28] MEDS: MIRTAZAPINE TAB 15 MG TAB PO SCH (21:02)
[2023-09-28] MEDS: POTASSIUM CHLORIDE 10 MEQ TABCR PO SCH (21:06)
[2023-09-28] MEDS: FOLIC ACID 1 MG TAB PO SCH (21:06)
[2023-09-29 07:21] LABS: Calcium 8.3 mg/dl (8.6-10.3); Potassium 3.8 mmol/L (3.5-5.1)
[2023-09-29 07:27] LABS: Creatinine Clr Calc Pharmacy 32.6 ml/min; Est GFR (African American) 53.8 ml/min; Est GFR (Non-African American) 46.5 ml/min
[2023-09-29] MEDS: INSULIN ASPART PER UNIT CHARGE SC SCH ×4 (08:42→20:50)
[2023-09-29] MEDS: BRIMONIDINE TARTRATE 0.2% 5ML OPL SCH ×3 (10:34→20:00)
[2023-09-29] MEDS: AMOXICILLIN/CLAVULANATE 500 MG TAB PO SCH (10:34)
[2023-09-29] MEDS: DORZOLAMIDE/TIMOLOL 22.3/6.8MG/ML 10 ML BTL OPL SCH ×3 (10:34→20:07)
[2023-09-29] MEDS: DOXYCYCLINE HYCLATE 100 MG CAP PO SCH ×2 (10:34→20:06)
[2023-09-29] MEDS: ATORVASTATIN 40 MG TAB PO SCH (10:35)
[2023-09-29] MEDS: CYANOCOBALAMIN (B-12) 500 MCG TABLET PO SCH (10:35)
[2023-09-29] MEDS: FINASTERIDE 5 MG TAB PO SCH (10:35)
[2023-09-29] MEDS: ASPIRIN 81 MG ECTAB PO SCH (10:35)
[2023-09-29] MEDS: ISOSORBIDE MONO EXTENDED REL 30 MG TABCR PO SCH (10:35)
[2023-09-29] MEDS: DOCUSATE SODIUM/SENNA 50/8.6MG TAB PO SCH ×2 (10:36→20:15)
[2023-09-29] MEDS: METOPROLOL SUCC 25MG EXT REL TAB PO SCH (10:36)
--- NOTE | 2023-09-29 11:04 | Hospitalist Progress Note ---
Date of Service September 29, 2023 Assessment & Plan (1) Acute hypoxic respiratory failure: (2) Permanent atrial fibrillation: (3) Pleural effusion: (4) Acute heart failure with preserved ejection fraction (HFpEF): Plan 88-year-old male with past medical history significant for type 2 diabetes, hyperlipidemia, hiatal hernia, chronic systolic CHF, hypertension, moderate aortic stenosis, moderate aortic and mitral regurgitation, history of CAD s/p CABG, persistent atrial fibrillation, s/p pacemaker, vitamin B12 deficiency, BPH, iron deficiency anemia, depression, blindness of right eye, blurry vision left eye, frequent falls frequently, balance disorder, who lives at [facility] presents with shortness of breath and requiring 6 L oxygen and found to have pleural effusions, CHF and possible pneumonia. Not on home oxygen. Acute hypoxic respiratory failure Acute on chronic systolic and diastolic CHF. Left-sided pleural effusion Possible aspiration pneumonia Patient presented from [facility] with shortness of breath. Respiratory bio fire negative CTA chest personally reviewed; large pleural effusion seen on the left side. Hiatal hernia present. No PE. His chest x-ray from April of this year did not show any pleural effusion. MRSA nares positive VFSS done; has aspiration of multiple consistencies. Echocardiogram shows EF of 55 to 60% with mild concentric LVH. Large left-sided pleural effusion. Started on Lasix 20 mg IV twice daily-held for worsening creatinine. Strict input and output monitoring, daily weights Thoracentesis on 09/25 with 1250cc out. On ceftriaxone and vancomycin-transitioned him to Augmentin/doxy (intermittently required transition back to IV bc patient was refusing oral meds, changed back to oral later bc he lost IV access) Hypoxia has resolved and he is clinically improved but remains very weak. Cont aspiration precautions Acute kidney injury Creatinine improved to 1.36 which is around his baseline. Cont holding Lasix. Likely improved after straight cath yesterday Continues to have some issues with urinating but not moving around much either. Cont bladder scan and hold off on lake and help him reposition to urinate max amount. Lake catheter will likely be very irritating and something he may try to remove causing trauma. Repeat BMP in am. Plan to resume Lasix in am. Demand ischemia Mild elevation of troponin Cardiology on board; Coreg and Imdur on hold due to hypotension. Cont metoprolol 25 mg per recommendation by cardiology. Coreg discontinued. Cont home Imdur. Type 2 diabetes mellitus chronic, well controlled. will use short acting insulin for correction only as needed. Hypertension chronic, stable. Around goal. On Coreg and Imdur and losartan at home Imdur and losartan on hold. Coreg changed to metoprolol History of CAD s/p CABG chronic, stable. On aspirin and statin, BB Atrial fibrillation chronic, stable. EKG with V -paced rhythm. History of symptomatic bradycardia S/p pacemaker On aspirin Eliquis stopped because of falls Continues on metoprolol DVT prophylaxis SCDs and heparin subcu CODE STATUS DNR/DNI [facility] and also with his [id number] Disposition: medically stable for rehab, likely Sunday. I spent a total [id number] coordinating, documenting, and providing care for this patient excluding time spent in the performance of separately billed services DO [facility]сандр [facility] Hospitalist Admission and Anticipated Discharge Date Admission Date: September 24, 2023 Subjective 88-year-old man admitted for acute respiratory failure with hypoxia status post left-sided thoracentesis on 09/25 with removal of 1200 cc of fluid. doing well today overall without complaints remains weak and not getting out of bed. still awaiting therapy evals Physical Exam Physical Exam: CONSTITUTIONAL: thin, frail, elderly, vitals as above, NAD EYES: normal conjunctivae, ENT: external ear and nose normal, oropharynx clear, NECK: trachea midline, RESPIRATORY: clear to auscultation bilaterally, no crackles, rales or wheezes, normal respiratory effort CARDIOVASCULAR: regular rate and rhythm, S1 and 2 heard without murmurs, gallops or rubs, no JVD, no peripheral edema, CHEST: inspection of chest was normal GASTROINTESTINAL: normal bowel sounds, soft, nontender, ND, no guarding MUSCULOSKELETAL: strength 5/5 throughout, head is normocephalic and atraumatic, SKIN: warm and dry NEUROLOGIC: CN 2-12 grossly intact, no sensory deficit, normal cognition, normal speech, no tremor PSYCHIATRIC: alert cooperative and oriented to person, place and time. Euthymic mood, makes good eye contact, language grossly intact, recent and remote memory grossly intact. Results & Data Results & Data Vital Signs (Past 12 Hours) Vital Signs Temp Pulse Pulse Resp BP Pulse Ox O2 Del Method 09/29/23 07:27 36.3 C L 64 18 131/58 L 97 Room Air 09/29/23 03:16 36.8 C 59 L 18 137/65 94 Room Air 09/28/23 23:10 60 Laboratory Results BMP 09/29/23 06:37 Sodium 141 Potassium 3.8 Chloride 109 H Carbon Dioxide 24 BUN 34 H Creatinine 1.36 Glucose 79 Calcium 8.3 L Urine 09/28/23 Range/Units 10:23 Urine Color Yellow Urine Appearance Clear (Clear) Urine pH 5.0 (4.5-7.5) Ur Specific Rives 1.021 (1.000-1.030) Urine Protein Negative (Negative) Urine Glucose (UA) Negative (Negative) Medications Administered Current Inpatient Medications Acetaminophen (Acetaminophen 325 Mg Tab) 650 mg PO Q4H PRN PRN Reason: Pain or Fever Stop: 10/24/23 03:31 Amoxicillin/Clavulanate Potassium (Amoxicillin/Clavulanate 500 Mg Tab) 1 tab PO BID [facility]; Protocol Stop: 10/05/23 20:59 Last Admin: 09/29/23 10:34 Dose: 1 tab Aspirin (Aspirin 81 Mg Ectab) 81 mg PO DAILY [facility] Stop: 10/24/23 08:59 Last Admin: 09/29/23 10:35 Dose: 81 mg Atorvastatin Calcium (Atorvastatin 40 Mg Tab) 40 mg PO QAM [facility] Stop: 10/24/23 08:59 Last Admin: 09/29/23 10:35 Dose: 40 mg Bimatoprost (Bimatoprost 0.01% Op Soln 2.5 Ml Btl) 1 drops OPB HS [facility] Stop: 10/24/23 20:59 Last Admin: 09/28/23 20:52 Dose: 1 drops Brimonidine Tartrate (Brimonidine Tartrate 0.2% 5ml) 1 drops OPL TID [facility] Stop: 10/24/23 08:59 Last Admin: 09/29/23 10:34 Dose: 1 drops Cyanocobalamin (Cyanocobalamin (B-12) 500 Mcg Tablet) 1,000 mcg PO QAM [facility] Stop: 10/24/23 08:59 Last Admin: 09/29/23 10:35 Dose: 1,000 mcg Dextrose (Dextrose 50% 50 Ml Syringe) 25 - 50 ml IV UD PRN; Protocol PRN Reason: Hypoglycemia Protocol Stop: 10/24/23 03:31 Dorzolamide/Timolol (Dorzolamide/Timolol 22.3/6.8mg/Ml 10 Ml Btl) 1 drops OPL TID [facility] Stop: 10/24/23 08:59 Last Admin: 09/29/23 10:34 Dose: 1 drops Doxycycline Hyclate (Doxycycline Hyclate 100 Mg Cap) 100 mg PO BID [facility] Stop: 10/05/23 20:59 Last Admin: 09/29/23 10:34 Dose: 100 mg Finasteride (Finasteride 5 Mg Tab) 5 mg PO QAM [facility] Stop: 10/24/23 08:59 Last Admin: 09/29/23 10:35 Dose: 5 mg Folic Acid (Folic Acid 1 Mg Tab) 1 mg PO HS [facility] Stop: 10/24/23 20:59 Last Admin: 09/28/23 21:06 Dose: 1 mg Glucagon (Glucagon For Inj 1 Mg Vial) 1 mg SQ UD PRN; Protocol PRN Reason: Hypoglycemia Protocol Stop: 10/24/23 03:31 Glucose (Glucose 10 Tab/Tube) 4 - 8 tab PO UD PRN; Protocol PRN Reason: Hypoglycemia Treatment Stop: 10/24/23 03:31 Glucose (Glucose 40% Gel 15 Gm Tube) 15 - 30 gm PO UD PRN; Protocol PRN Reason: Hypoglycemia Protocol Stop: 10/24/23 03:31 Insulin Aspart (Insulin Aspart Per Unit Charge) 0 units SC [facility] Stop: 10/24/23 07:29 Last Admin: 09/29/23 08:42 Dose: Not Given Isosorbide Mononitrate (Isosorbide [place] Extended Rel 30 Mg Tabcr) 30 mg PO QAM [facility] Stop: 10/27/23 08:59 Last Admin: 09/29/23 10:35 Dose: 30 mg Metoprolol Succinate (Metoprolol Succ 25mg Ext Rel Tab) 25 mg PO QAM [facility] Stop: 10/25/23 14:59 Last Admin: 09/29/23 10:36 Dose: 25 mg Mirtazapine (Mirtazapine Tab 15 Mg Tab) 15 mg PO HS [facility] Stop: 10/24/23 20:59 Last Admin: 09/28/23 21:02 Dose: 15 mg Miscellaneous (Carbohydrates For Hypoglycemia ) 15 - 30 gm PO UD PRN PRN Reason: Hypoglycemia Protocol Stop: 10/24/23 03:31 Nitroglycerin (Nitroglycerin Sl 0.4 Mg/Tab Tab) 0.4 mg SL Q5M PRN PRN Reason: Chest Pain Stop: 10/24/23 03:31 Polyethylene Glycol (Polyethylene (Miralax) 17 Gm Pack) 17 gm PO DAILY PRN PRN Reason: Constipation Stop: 10/24/23 03:31 Potassium Chloride (Potassium Chloride 10 Meq Tabcr) 10 meq PO HS [facility] Stop: 10/24/23 20:59 Last Admin: 09/28/23 21:06 Dose: 10 meq Senna/Docusate Sodium (Docusate Sodium/Senna 50/8.6mg Tab) 2 tab PO DAILY [facility] Stop: 10/24/23 08:59 Last Admin: 09/29/23 10:36 Dose: Not Given Senna/Docusate Sodium (Docusate Sodium/Senna 50/8.6mg Tab) 1 tab PO HS [facility] Stop: 10/24/23 20:59 Last Admin: 09/28/23 21:06 Dose: 1 tab Tramadol HCl (Tramadol Hcl 50 Mg Tablet) 50 mg PO Q6H PRN PRN Reason: Pain Stop: 10/24/23 03:31 Last Admin: 09/28/23 21:07 Dose: 50 mg
[2023-09-29] MEDS: AMOXICILLIN/CLAVULANATE 875 MG TAB PO SCH (17:25)
[2023-09-29] MEDS: BIMATOPROST 0.01% OP SOLN 2.5 ML BTL OPB SCH (20:01)
[2023-09-29] MEDS: MIRTAZAPINE TAB 15 MG TAB PO SCH (20:04)
[2023-09-29] MEDS: POTASSIUM CHLORIDE 10 MEQ TABCR PO SCH (20:04)
[2023-09-29] MEDS: FOLIC ACID 1 MG TAB PO SCH (20:52)
[2023-09-30 07:41] LABS: BUN Creatinine Ratio 25.6 (10-20); Calcium 8.1 mg/dl (8.6-10.3); Creatinine Clr Calc Pharmacy 35.5 ml/min; Est GFR (African American) 59.6 ml/min; Est GFR (Non-African American) 51.4 ml/min; Potassium 4.2 mmol/L (3.5-5.1)
--- NOTE | 2023-09-30 09:09 | Hospitalist Progress Note ---
Date of Service September 30, 2023 Assessment & Plan (1) Acute hypoxic respiratory failure: (2) Permanent atrial fibrillation: (3) Pleural effusion: (4) Acute heart failure with preserved ejection fraction (HFpEF): Plan 88-year-old male with past medical history significant for type 2 diabetes, hyperlipidemia, hiatal hernia, chronic systolic CHF, hypertension, moderate aortic stenosis, moderate aortic and mitral regurgitation, history of CAD s/p CABG, persistent atrial fibrillation, s/p pacemaker, vitamin B12 deficiency, BPH, iron deficiency anemia, depression, blindness of right eye, blurry vision left eye, frequent falls frequently, balance disorder, who lives at [facility] presents with shortness of breath and requiring 6 L oxygen and found to have pleural effusions, CHF and possible pneumonia. Not on home oxygen. Acute hypoxic respiratory failure Acute on chronic systolic and diastolic CHF. Left-sided pleural effusion Possible aspiration pneumonia Patient presented from [facility] with shortness of breath. Respiratory bio fire negative CTA chest personally reviewed; large pleural effusion seen on the left side. Hiatal hernia present. No PE. His chest x-ray from April of this year did not show any pleural effusion. MRSA nares positive VFSS done; has aspiration of multiple consistencies. Echocardiogram shows EF of 55 to 60% with mild concentric LVH. Large left-sided pleural effusion. Started on Lasix 20 mg IV twice daily-held for worsening creatinine. Strict input and output monitoring, daily weights Thoracentesis on 09/25 with 1250cc out. On ceftriaxone and vancomycin-transitioned him to Augmentin/doxy (intermittently required transition back to IV bc patient was refusing oral meds, changed back to oral later bc he lost IV access) Hypoxia has resolved and he is clinically improved but remains very weak. Cont aspiration precautions Lasix PO resumed Acute kidney injury BPH Creatinine improved to 1.25 which is around his baseline. Restarted home lasix Likely improved after straight cath yesterday Continues to have some issues with urinating but not moving around much either. Cont bladder scan which continues to show 300cc retained, and help patient reposition to urinate as effectively as possible. Want to hold off on lake and help him reposition to urinate max amount. Lake catheter will likely be very irritating and something he may try to remove causing trauma. Continues on finasteride. Adding flomax 0.4mg PO qHS Repeat BMP in am. Demand ischemia Mild elevation of troponin Cardiology on board; Coreg and Imdur on hold due to hypotension. Cont metoprolol 25 mg per recommendation by cardiology. Coreg discontinued. Cont home Imdur. Type 2 diabetes mellitus chronic, well controlled. will use short acting insulin for correction only as needed. Hypertension chronic, stable. Around goal. On Coreg and Imdur and losartan at home Imdur and losartan on hold. Coreg changed to metoprolol History of CAD s/p CABG chronic, stable. On aspirin and statin, BB Atrial fibrillation chronic, stable. EKG with V -paced rhythm. History of symptomatic bradycardia S/p pacemaker On aspirin Eliquis stopped because of falls Continues on metoprolol DVT prophylaxis SCDs and heparin subcu CODE STATUS DNR/DNI Disposition: medically stable for rehab, likely Sunday. Jimena Thompson DO [facility] Hospitalist Admission and Anticipated Discharge Date Admission Date: September 24, 2023 Subjective 88-year-old man admitted for acute respiratory failure with hypoxia status post left-sided thoracentesis on 09/25 with removal of 1200 cc of fluid. doing well today overall but he is slightly agitated after just having had a bath by the RNs. remains weak and not getting out of bed. still awaiting therapy evals Physical Exam Physical Exam: CONSTITUTIONAL: thin, frail, elderly, vitals as above, NAD EYES: normal conjunctivae, ENT: external ear and nose normal, oropharynx clear, NECK: trachea midline, RESPIRATORY: clear to auscultation bilaterally, no crackles, rales or wheezes, normal respiratory effort CARDIOVASCULAR: regular rate and rhythm, S1 and 2 heard without murmurs, gallops or rubs, no JVD, no peripheral edema, CHEST: inspection of chest was normal GASTROINTESTINAL: normal bowel sounds, soft, nontender, ND, no guarding MUSCULOSKELETAL: strength 5/5 throughout, head is normocephalic and atraumatic, SKIN: warm and dry NEUROLOGIC: CN 2-12 grossly intact, no sensory deficit, normal cognition, normal speech, no tremor PSYCHIATRIC: alert cooperative and oriented to person, place and time. Euthymic mood, makes good eye contact, language grossly intact, recent and remote memory grossly intact. Results & Data Results & Data Vital Signs (Past 12 Hours) Vital Signs Temp Pulse Resp BP BP Pulse Ox O2 Del Method 09/30/23 07:15 36.6 C 60 16 153/54 H 94 Room Air 09/29/23 21:10 36.6 C 92 H 18 145/64 H 92 Room Air Laboratory Results [facility] 09/30/23 06:38 Sodium 139 Potassium 4.2 Chloride 109 H Carbon Dioxide 21 BUN 32 H Creatinine 1.25 Glucose 86 Calcium 8.1 L Medications Administered Current Inpatient Medications Acetaminophen (Acetaminophen 325 Mg Tab) 650 mg PO Q4H PRN PRN Reason: Pain or Fever Stop: 10/24/23 03:31 Amoxicillin/Clavulanate Potassium (Amoxicillin/Clavulanate 875 Mg Tab) 1 tab PO BIDM [facility] Stop: 10/05/23 20:59 Last Admin: 09/29/23 17:25 Dose: 1 tab Aspirin (Aspirin 81 Mg Ectab) 81 mg PO DAILY [facility] Stop: 10/24/23 08:59 Last Admin: 09/29/23 10:35 Dose: 81 mg Atorvastatin Calcium (Atorvastatin 40 Mg Tab) 40 mg PO QAM [facility] Stop: 10/24/23 08:59 Last Admin: 09/29/23 10:35 Dose: 40 mg Bimatoprost (Bimatoprost 0.01% Op Soln 2.5 Ml Btl) 1 drops OPB HS [facility] Stop: 10/24/23 20:59 Last Admin: 09/29/23 20:01 Dose: 1 drops Brimonidine Tartrate (Brimonidine Tartrate 0.2% 5ml) 1 drops OPL TID [facility] Stop: 10/24/23 08:59 Last Admin: 09/29/23 20:00 Dose: 1 drops Cyanocobalamin (Cyanocobalamin (B-12) 500 Mcg Tablet) 1,000 mcg PO QAM [facility] Stop: 10/24/23 08:59 Last Admin: 09/29/23 10:35 Dose: 1,000 mcg Dorzolamide/Timolol (Dorzolamide/Timolol 22.3/6.8mg/Ml 10 Ml Btl) 1 drops OPL TID [facility] Stop: 10/24/23 08:59 Last Admin: 09/29/23 20:07 Dose: 1 drops Doxycycline Hyclate (Doxycycline Hyclate 100 Mg Cap) 100 mg PO BID [facility] Stop: 10/05/23 20:59 Last Admin: 09/29/23 20:06 Dose: 100 mg Finasteride (Finasteride 5 Mg Tab) 5 mg PO QAM [facility] Stop: 10/24/23 08:59 Last Admin: 09/29/23 10:35 Dose: 5 mg Folic Acid (Folic Acid 1 Mg Tab) 1 mg PO HS [facility] Stop: 10/24/23 20:59 Last Admin: 09/29/23 20:52 Dose: 1 mg Furosemide (Furosemide 20 Mg Tab) 20 mg PO DAILY [facility] Stop: 10/30/23 08:59 Isosorbide Mononitrate (Isosorbide [place] Extended Rel 30 Mg Tabcr) 30 mg PO QAM [facility] Stop: 10/27/23 08:59 Last Admin: 09/29/23 10:35 Dose: 30 mg Metoprolol Succinate (Metoprolol Succ 25mg Ext Rel Tab) 25 mg PO QAM [facility] Stop: 10/25/23 14:59 Last Admin: 09/29/23 10:36 Dose: 25 mg Mirtazapine (Mirtazapine Tab 15 Mg Tab) 15 mg PO [facility] Stop: 10/24/23 20:59 Last Admin: 09/29/23 20:04 Dose: 15 mg Nitroglycerin (Nitroglycerin Sl 0.4 Mg/Tab Tab) 0.4 mg SL Q5M PRN PRN Reason: Chest Pain Stop: 10/24/23 03:31 Polyethylene Glycol (Polyethylene (Miralax) 17 Gm Pack) 17 gm PO DAILY PRN PRN Reason: Constipation Stop: 10/24/23 03:31 Potassium Chloride (Potassium Chloride 10 Meq Tabcr) 10 meq PO [facility] Stop: 10/24/23 20:59 Last Admin: 09/29/23 20:04 Dose: 10 meq Senna/Docusate Sodium (Docusate Sodium/Senna 50/8.6mg Tab) 2 tab PO DAILY [facility] Stop: 10/24/23 08:59 Last Admin: 09/29/23 10:36 Dose: Not Given Senna/Docusate Sodium (Docusate Sodium/Senna 50/8.6mg Tab) 1 tab PO HS [facility] Stop: 10/24/23 20:59 Last Admin: 09/29/23 20:15 Dose: 1 tab Tramadol HCl (Tramadol Hcl 50 Mg Tablet) 50 mg PO Q6H PRN PRN Reason: Pain Stop: 10/24/23 03:31 Last Admin: 09/28/23 21:07 Dose: 50 mg
[2023-09-30] MEDS: ASPIRIN 81 MG ECTAB PO SCH (09:37)
[2023-09-30] MEDS: FUROSEMIDE 20 MG TAB PO SCH (09:37)
[2023-09-30] MEDS: FINASTERIDE 5 MG TAB PO SCH (09:37)
[2023-09-30] MEDS: DOXYCYCLINE HYCLATE 100 MG CAP PO SCH ×2 (09:38→20:12)
[2023-09-30] MEDS: CYANOCOBALAMIN (B-12) 500 MCG TABLET PO SCH (09:40)
[2023-09-30] MEDS: ATORVASTATIN 40 MG TAB PO SCH (09:40)
[2023-09-30] MEDS: METOPROLOL SUCC 25MG EXT REL TAB PO SCH (09:40)
[2023-09-30] MEDS: ISOSORBIDE MONO EXTENDED REL 30 MG TABCR PO SCH (09:41)
[2023-09-30] MEDS: AMOXICILLIN/CLAVULANATE 875 MG TAB PO SCH ×3 (09:42→20:11)
[2023-09-30] MEDS: INSULIN ASPART PER UNIT CHARGE SC SCH (11:17)
[2023-09-30] MEDS: DORZOLAMIDE/TIMOLOL 22.3/6.8MG/ML 10 ML BTL OPL SCH ×3 (14:02→20:14)
[2023-09-30] MEDS: BRIMONIDINE TARTRATE 0.2% 5ML OPL SCH ×3 (14:02→20:14)
[2023-09-30] MEDS: DOCUSATE SODIUM/SENNA 50/8.6MG TAB PO SCH ×2 (14:04→20:25)
[2023-09-30] MEDS: BIMATOPROST 0.01% OP SOLN 2.5 ML BTL OPB SCH (20:15)
[2023-09-30] MEDS: FOLIC ACID 1 MG TAB PO SCH (20:17)
[2023-09-30] MEDS: MIRTAZAPINE TAB 15 MG TAB PO SCH (20:17)
[2023-09-30] MEDS: POTASSIUM CHLORIDE 10 MEQ TABCR PO SCH (20:22)
[2023-09-30] MEDS ORDERED: TAMSULOSIN HCL 0.4 MG CAP PO SCH (21:00)
[2023-10-01 07:49] LABS: Calcium 8.5 mg/dl (8.6-10.3); Creatinine Clr Calc Pharmacy 36.3 ml/min; Est GFR (African American) 61.4 ml/min; Potassium 3.8 mmol/L (3.5-5.1)
[2023-10-01] MEDS: ASPIRIN 81 MG ECTAB PO SCH (08:32)
[2023-10-01] MEDS: ATORVASTATIN 40 MG TAB PO SCH (08:32)
[2023-10-01] MEDS: AMOXICILLIN/CLAVULANATE 875 MG TAB PO SCH ×2 (08:32→16:59)
[2023-10-01] MEDS: CYANOCOBALAMIN (B-12) 500 MCG TABLET PO SCH (08:33)
[2023-10-01] MEDS: BRIMONIDINE TARTRATE 0.2% 5ML OPL SCH ×2 (08:33→14:27)
[2023-10-01] MEDS: DOXYCYCLINE HYCLATE 100 MG CAP PO SCH (08:34)
[2023-10-01] MEDS: DORZOLAMIDE/TIMOLOL 22.3/6.8MG/ML 10 ML BTL OPL SCH ×2 (08:34→14:26)
[2023-10-01] MEDS: FINASTERIDE 5 MG TAB PO SCH (08:35)
[2023-10-01] MEDS: ISOSORBIDE MONO EXTENDED REL 30 MG TABCR PO SCH (08:35)
[2023-10-01] MEDS: METOPROLOL SUCC 25MG EXT REL TAB PO SCH (08:36)
--- NOTE | 2023-10-01 09:04 | Hospitalist Progress Note ---
Date of Service October 01, 2023 Assessment & Plan (1) Acute hypoxic respiratory failure: (2) Permanent atrial fibrillation: (3) Pleural effusion: (4) Acute heart failure with preserved ejection fraction (HFpEF): Plan 88-year-old male with past medical history significant for type 2 diabetes, hyperlipidemia, hiatal hernia, chronic systolic CHF, hypertension, moderate aortic stenosis, moderate aortic and mitral regurgitation, history of CAD s/p CABG, persistent atrial fibrillation, s/p pacemaker, vitamin B12 deficiency, BPH, iron deficiency anemia, depression, blindness of right eye, blurry vision left eye, frequent falls frequently, balance disorder, who lives at [facility] presents with shortness of breath and requiring 6 L oxygen and found to have pleural effusions, CHF and possible pneumonia. Not on home oxygen. Acute hypoxic respiratory failure Acute on chronic systolic and diastolic CHF. Left-sided pleural effusion Possible aspiration pneumonia Patient presented from [facility] with shortness of breath. Respiratory bio fire negative CTA chest personally reviewed; large pleural effusion seen on the left side. Hiatal hernia present. No PE. His chest x-ray from April of this year did not show any pleural effusion. MRSA nares positive VFSS done; has aspiration of multiple consistencies. Echocardiogram shows EF of 55 to 60% with mild concentric LVH. Large left-sided pleural effusion. Started on Lasix 20 mg IV twice daily-held for worsening creatinine. Strict input and output monitoring, daily weights Thoracentesis on 09/25 with 1250cc out. On ceftriaxone and vancomycin-transitioned him to Augmentin/doxy (intermittently required transition back to IV bc patient was refusing oral meds, changed back to oral later bc he lost IV access) Hypoxia has resolved and he is clinically improved but remains very weak. Cont aspiration precautions Lasix PO resumed Acute kidney injury BPH Creatinine improved to 1.25 which is around his baseline. Restarted home lasix Likely improved after straight cath yesterday Continues to have some issues with urinating but not moving around much either. Cont bladder scan which continues to show 300cc retained, and help patient reposition to urinate as effectively as possible. Want to hold off on lake and help him reposition to urinate max amount. Lake catheter will likely be very irritating and something he may try to remove causing trauma. Continues on finasteride. Adding flomax 0.4mg PO qHS Repeat BMP in am. Demand ischemia Mild elevation of troponin Cardiology on board; Coreg and Imdur on hold due to hypotension. Cont metoprolol 25 mg per recommendation by cardiology. Coreg discontinued. Cont home Imdur. Type 2 diabetes mellitus chronic, well controlled. will use short acting insulin for correction only as needed. Hypertension chronic, stable. Around goal. On Coreg and Imdur and losartan at home Imdur and losartan on hold. Coreg changed to metoprolol History of CAD s/p CABG chronic, stable. On aspirin and statin, BB Atrial fibrillation chronic, stable. EKG with V -paced rhythm. History of symptomatic bradycardia S/p pacemaker On aspirin Eliquis stopped because of falls Continues on metoprolol DVT prophylaxis SCDs and heparin subcu CODE STATUS DNR/DNI Disposition: medically stable for rehab, likely Sunday. Jimena Thompson DO [facility] Hospitalist Admission and Anticipated Discharge Date Admission Date: September 24, 2023 Subjective 88-year-old man admitted for acute respiratory failure with hypoxia status post left-sided thoracentesis on 09/25 with removal of 1200 cc of fluid. doing well today overall but he is slightly agitated after just having had a bath by the RNs. remains weak and not getting out of bed. still awaiting therapy evals Physical Exam Physical Exam: CONSTITUTIONAL: thin, frail, elderly, vitals as above, NAD EYES: normal conjunctivae, ENT: external ear and nose normal, oropharynx clear, NECK: trachea midline, RESPIRATORY: clear to auscultation bilaterally, no crackles, rales or wheezes, normal respiratory effort CARDIOVASCULAR: regular rate and rhythm, S1 and 2 heard without murmurs, gallops or rubs, no JVD, no peripheral edema, CHEST: inspection of chest was normal GASTROINTESTINAL: normal bowel sounds, soft, nontender, ND, no guarding MUSCULOSKELETAL: strength 5/5 throughout, head is normocephalic and atraumatic, SKIN: warm and dry NEUROLOGIC: CN 2-12 grossly intact, no sensory deficit, normal cognition, normal speech, no tremor PSYCHIATRIC: alert cooperative and oriented to person, place and time. Euthymic mood, makes good eye contact, language grossly intact, recent and remote memory grossly intact. Results & Data Results & Data Vital Signs (Past 12 Hours) Vital Signs Temp Pulse Resp BP Pulse Ox O2 Del Method 10/01/23 07:23 36.4 C L 62 18 154/54 H 95 Room Air 10/01/23 00:47 Room Air 10/01/23 00:45 36.5 C 59 L 18 124/58 L 96 Room Air Laboratory Results [facility] 10/01/23 06:23 Sodium 139 Potassium 3.8 Chloride 111 H Carbon Dioxide 20 L BUN 33 H Creatinine 1.22 Glucose 95 Calcium 8.5 L Medications Administered Current Inpatient Medications Acetaminophen (Acetaminophen 325 Mg Tab) 650 mg PO Q4H PRN PRN Reason: Pain or Fever Stop: 10/24/23 03:31 Amoxicillin/Clavulanate Potassium (Amoxicillin/Clavulanate 875 Mg Tab) 1 tab PO BIDM [facility] Stop: 10/05/23 20:59 Last Admin: 10/01/23 08:32 Dose: 1 tab Aspirin (Aspirin 81 Mg Ectab) 81 mg PO DAILY [facility] Stop: 10/24/23 08:59 Last Admin: 10/01/23 08:32 Dose: 81 mg Atorvastatin Calcium (Atorvastatin 40 Mg Tab) 40 mg PO QAM [facility] Stop: 10/24/23 08:59 Last Admin: 10/01/23 08:32 Dose: 40 mg Bimatoprost (Bimatoprost 0.01% Op Soln 2.5 Ml Btl) 1 drops OPB HS [facility] Stop: 10/24/23 20:59 Last Admin: 09/30/23 20:15 Dose: 1 drops Brimonidine Tartrate (Brimonidine Tartrate 0.2% 5ml) 1 drops OPL TID [facility] Stop: 10/24/23 08:59 Last Admin: 10/01/23 08:33 Dose: 1 drops Cyanocobalamin (Cyanocobalamin (B-12) 500 Mcg Tablet) 1,000 mcg PO QAM [facility] Stop: 10/24/23 08:59 Last Admin: 10/01/23 08:33 Dose: 1,000 mcg Dorzolamide/Timolol (Dorzolamide/Timolol 22.3/6.8mg/Ml 10 Ml Btl) 1 drops OPL TID [facility] Stop: 10/24/23 08:59 Last Admin: 10/01/23 08:34 Dose: 1 drops Doxycycline Hyclate (Doxycycline Hyclate 100 Mg Cap) 100 mg PO BID [facility] Stop: 10/05/23 20:59 Last Admin: 10/01/23 08:34 Dose: 100 mg Finasteride (Finasteride 5 Mg Tab) 5 mg PO QAM [facility] Stop: 10/24/23 08:59 Last Admin: 10/01/23 08:35 Dose: 5 mg Folic Acid (Folic Acid 1 Mg Tab) 1 mg PO [facility] Stop: 10/24/23 20:59 Last Admin: 09/30/23 20:17 Dose: 1 mg Furosemide (Furosemide 20 Mg Tab) 20 mg PO DAILY [facility] Stop: 10/30/23 08:59 Last Admin: 09/30/23 09:37 Dose: 20 mg Isosorbide Mononitrate (Isosorbide [place] Extended Rel 30 Mg Tabcr) [facility] Stop: 10/27/23 08:59 Last Admin: 10/01/23 08:35 Dose: 30 mg Metoprolol Succinate (Metoprolol Succ 25mg Ext Rel Tab) [facility] Stop: 10/25/23 14:59 Last Admin: 10/01/23 08:36 Dose: 25 mg Mirtazapine (Mirtazapine Tab 15 Mg Tab) 15 mg PO [facility] Stop: 10/24/23 20:59 Last Admin: 09/30/23 20:17 Dose: 15 mg Nitroglycerin (Nitroglycerin Sl 0.4 Mg/Tab Tab) 0.4 mg SL Q5M PRN PRN Reason: Chest Pain Stop: 10/24/23 03:31 Polyethylene Glycol (Polyethylene (Miralax) 17 Gm Pack) 17 gm PO DAILY PRN PRN Reason: Constipation Stop: 10/24/23 03:31 Potassium Chloride (Potassium Chloride 10 Meq Tabcr) 10 meq PO [facility] Stop: 10/24/23 20:59 Last Admin: 09/30/23 20:22 Dose: 10 meq Senna/Docusate Sodium (Docusate Sodium/Senna 50/8.6mg Tab) 2 tab PO DAILY [facility] Stop: 10/24/23 08:59 Last Admin: 09/30/23 14:04 Dose: 2 tab Senna/Docusate Sodium (Docusate Sodium/Senna 50/8.6mg Tab) 1 tab PO [facility] Stop: 10/24/23 20:59 Last Admin: 09/30/23 20:25 Dose: 1 tab Tamsulosin HCl (Tamsulosin Hcl 0.4 Mg Cap) 0.4 mg PO HS [facility] Stop: 10/30/23 20:59 Last Admin: 09/30/23 20:12 Dose: 0.4 mg Tramadol HCl (Tramadol Hcl 50 Mg Tablet) 50 mg PO Q6H PRN PRN Reason: Pain Stop: 10/24/23 03:31 Last Admin: 09/28/23 21:07 Dose: 50 mg
[2023-10-01] MEDS: FUROSEMIDE 20 MG TAB PO SCH (11:21)
[2023-10-01] MEDS: DOCUSATE SODIUM/SENNA 50/8.6MG TAB PO SCH (11:22)
--- NOTE | 2023-10-01 12:42 | Discharge Summary ---
Discharge Summary Date of Service October 01, 2023 Notes For Next Care Provider Medication Changes From Visit Please see med rec. Admission HPI Per Admitting Provider 88-year-old male with past medical history significant for type 2 diabetes, hyperlipidemia, hiatal hernia, chronic systolic CHF, hypertension, moderate aortic stenosis, moderate aortic and mitral regurgitation, history of CAD s/p CABG, persistent atrial fibrillation, s/p pacemaker, vitamin B12 deficiency, BPH, iron deficiency anemia, depression, blindness of right eye, blurry vision left eye, frequent falls , balance disorder, who lives at [facility] presents with shortness of breath. Patient is currently oriented to name states he gets on and off chest pain but currently no chest pain. Denies any belly pain. Denies any headache. Denies nausea. Patient currently seems to be get getting confused. As per nursing staff he was okay earlier but got confused later. As per intermediate he complained of shortness of breath around 5 PM felt like he was drowning. Has some cough. No fevers. At the time he also complains of some chest pain. No nausea no nausea vomiting. No diarrhea. He is on regular diet and thin liquids. He ambulates with walker with assistance.. Past medical history. As mentioned above Past surgical history. CABG, colonoscopy, EGD, total left hip replacement. Social history. Currently living at [facility]. Quit smoking 2018. Smoked 5 pack a day for 3 years. Alcohol rare. No drug use. Family history. Father had prostate cancer. Mother had heart disorder. Principal Dx & Hospital Course #1 = Principal Diagnosis (1) Acute hypoxic respiratory failure: (2) Permanent atrial fibrillation: (3) Pleural effusion: (4) Acute heart failure with preserved ejection fraction (HFpEF): (5) Aspiration pneumonia: (6) Urinary retention: Plan Patient is an 88-year-old man with moderate aortic stenosis and other chronic complex medical conditions who presents with shortness of breath. He was managed for acute heart failure exacerbation with preserved ejection fraction. He was found to have a pleural effusion on imaging which was drained via thoracentesis on the left side on 09/25. He recovered without incident. He continued on intravenous diuretics and was compensated and transition back to oral Lasix. During this hospital stay carvedilol was transitioned to metoprolol and losartan was stopped due to relative hypotension. He was noted to be retaining urine approximately 300 to 400 cc every 6 hours during a bladder scan. Mobility was significantly limited and this may improve. However, Flomax was added to his finasteride regimen at home and twice daily straight catheterization is recommended pending follow-up with an outpatient urologist. A video swallow study revealed evidence of aspiration. He was placed on a pured diet by speech pathology. He was treated for aspiration pneumonia and has a high risk of repeat aspiration and readmission to the hospital. He was discharged in stable condition to SNF. Consideration for repeat video swallow study should be considered in the future as his medical status improves. Discharge Exam CONSTITUTIONAL: thin, frail, elderly, vitals as above, NAD EYES: normal conjunctivae, ENT: external ear and nose normal, oropharynx clear, NECK: trachea midline, RESPIRATORY: clear to auscultation bilaterally, no crackles, rales or wheezes, normal respiratory effort CARDIOVASCULAR: regular rate and rhythm, S1 and 2 heard without murmurs, gallops or rubs, no JVD, no peripheral edema, CHEST: inspection of chest was normal GASTROINTESTINAL: normal bowel sounds, soft, nontender, ND, no guarding MUSCULOSKELETAL: strength 5/5 throughout, head is normocephalic and atraumatic, SKIN: warm and dry NEUROLOGIC: CN 2-12 grossly intact, no sensory deficit, normal cognition, normal speech, no tremor PSYCHIATRIC: alert cooperative and oriented to person, place and time. Euthymic mood, makes good eye contact, language grossly intact, recent and remote memory grossly intact. Updated Medication List Medication Instructions Recorded Confirmed Type bimatoprost 0.01 % eye drops 1 drp OPB HS 12/31/19 09/24/23 History (Rosibel) brimonidine 0.2 % eye drops 1 drp OPL TID 12/31/19 09/24/23 History carvedilol 3.125 mg tablet 3.125 mg PO AMHS 02/04/21 09/24/23 History cyanocobalamin (vitamin B-12) 1,000 mcg PO QAM 02/04/21 09/24/23 History 1,000 mcg tablet isosorbide mononitrate 30 mg 30 mg PO QAM #30 tabs 03/11/21 09/24/23 Rx tablet,extended release 24 hr folic acid 1 mg tablet 1 mg PO HS 05/23/21 09/24/23 History atorvastatin 40 mg tablet 40 mg PO QAM 07/14/21 09/24/23 History nitroglycerin 0.4 mg sublingual 0.4 mg sublingual UD PRN Angina 07/14/21 09/24/23 History tablet potassium chloride 10 mEq 10 meq PO HS 07/14/21 09/24/23 History tablet,extended release (Klor-Con) ferrous sulfate 325 mg (65 mg 65 mg PO BID 05/24/23 09/24/23 History iron) tablet finasteride 5 mg tablet 5 mg PO QAM 05/24/23 09/24/23 History losartan 25 mg tablet 12.5 mg PO QAM 05/24/23 09/24/23 History metformin 500 mg tablet,extended 500 mg PO QAM 05/24/23 09/24/23 History release 24 hr Magic Cup 1 ea PO HS 09/24/23 09/24/23 History acetaminophen 325 mg tablet 650 mg PO Q4 PRN Fever Or Pain 09/24/23 09/24/23 History (Tylenol) aspirin 81 mg tablet,delayed 81 mg PO DAILY 09/24/23 09/24/23 History release dorzolamide 22.3 mg-timolol 6.8 1 drp OPL TID 09/24/23 09/24/23 History mg/mL eye drops food supplemt, lactose-reduced 1 ea PO TID 09/24/23 09/24/23 History furosemide 20 mg tablet (Lasix) 20 mg PO DAILY 09/24/23 09/24/23 History mirtazapine 15 mg tablet 15 mg PO HS 09/24/23 09/24/23 History sennosides 8.6 mg-docusate sodium 1 tab-cap PO HS 09/24/23 09/24/23 History 50 mg tablet (Senna with Docusate Sodium) sennosides 8.6 mg-docusate sodium 2 tab-cap PO DAILY 09/24/23 09/24/23 History 50 mg tablet (Senna-S) tramadol 50 mg tablet 50 mg PO Q6H PRN Pain 09/24/23 09/24/23 History metoprolol succinate 25 mg 25 mg PO QAM #30 tabs 10/01/23 Rx tablet,extended release 24 hr tamsulosin 0.4 mg capsule 0.4 mg PO HS #30 caps 12/04/23 Rx Hospital Stay Data Consultations 09/23/23 23:37 ED Decision to Admit Stat 09/24/23 08:00 Consult Cardiology Routine Consult Pulmonology Routine Diagnostic Imagining Performed 09/23/23 22:01 CT abd pelvis IV con only Stat 09/23/23 22:04 CT angio chest PE protocol Stat 09/24/23 13:30 FL video swallow Routine 09/25/23 12:48 US point of care ultrasound Urgent Pending Results Patient Have Any Pending Studies at Discharge: No Discharge Instructions Given to Patient (Per Discharging Provider) Please continue all medications as instructed on discharge as below. During this hospital stay you have been noted to retain urine in your bladder. To avoid damage to your urinary system, straight catheterization twice daily is recommended with follow-up with the urologist in the next couple of weeks. To help you completely avoid you continue on Proscar 5 mg daily and another medicine called Flomax 0.4 mg every evening was added. While admitted you completed an antibiotic course for aspiration pneumonia. A repeat chest x-ray is recommended in 4 weeks time to ensure complete resolution. You underwent as swallow evaluation on 09/24 that revealed aspiration seen with thin barium. Speech pathology evaluated you and made the following recommendations. Oral hygiene twice daily, pured diet by mouth with thin liquids are recommended. If thin liquids are too uncomfortable consideration is to be given for using an aspirate thickener in the liquids. Continue to abide by aspiration and reflux precautions including alternating solids and liquids with supervised meals sitting fully off alert and upright with single bites, small sips, slow rate. Head of bed should be at 30 degrees at all times. Consider completion of a new video swallow study once medical status is improved to determine if aspiration is expected to be chronic. The swallow study results done inpatient may not actually be his baseline but may just be due to acute illness and weakness. CT of your chest revealed a large left pleural effusion which was drained by thoracentesis on 09/25. Please continue low dose Lasix with BMP in 1 week. [facility] pac[facility] battery change within the next 6 months. You are being sent to a rehab facility to improve your strength after prolonged hospital stay. Please follow-up with your primary care doctor within 1 to 2 weeks of discharge from rehab. This is to ensure you are tolerating the medications appropriately and doing well since returning home. It was a pleasure taking care of you! Please call if you have any questions or problems. You can reach a [facility] hospitalist on duty at [facility] 24 hours a day by calling [phone]. Take care of yourself. Jimena Thompson, [facility] Total Time Total Time Spent Total Time Spent (In Minutes): 60
== END 2023-10-01 18:37 | DRG 177 ==
LOC: ED 20:53 → EDINP 09-24 01:18 → SUATTDRO 09-24 01:18 → 2S 09-24 03:33 → 3W 09-29 13:14